=== PATIENT | female | born 1975 | race Caucasian/White ===

== ENCOUNTER 2018-01-06 14:33 | Observation (INO) | payer OTHER ==
[2018-01-06] MEDS ORDERED: NA CHLORIDE 0.9% 1,000 ML ONE (16:01)
[2018-01-06] MEDS ORDERED: ONDANSETRON 4 MG/2 ML VIAL ONE (16:01)
[2018-01-06] MEDS ORDERED: FAMOTIDINE 20 MG/2 ML VIAL IV ONE (16:02)
[2018-01-06 16:33] LABS: Glucose Level 96 mg/dL (65-120); Lipase 24 U/L (22-51)
[2018-01-06 16:34] LABS: Absolute Monocytes 0.9 K/uL (0.1-1.3); Basophils % 0.9 % (0-1.3); Eosinophils % 0.9 % (0-4.4); Hematocrit 39.6 % (36.0-45.0); MCH 33.8 pg (27.0-35.0); MCV 99.2 fL (80-100); MPV 9.9 fL (7.6-11.3); Monocytes % 9.7 % (3.3-12.3); RBC Red Blood Cell Count 3.99 M/uL (3.86-4.86)
[2018-01-06 16:37] LABS: Urine Blood NEGATIVE (NEG); Urine Glucose NEGATIVE (NEG); Urine Protein NEGATIVE (NEG)
[2018-01-06 16:39] LABS: Urine Bacteria <20 /HPF (<20); Urine Culture Reflex Order NOT NEEDED; Urine RBC <5 /HPF (NONE SEEN)
[2018-01-06 16:39] LABS: ALT/SGPT 45 IU/L (10-60); AST/SGOT 81 IU/L (10-42); Albumin 3.3 g/dL (3.2-5.5); Alkaline Phosphatase 116 IU/L (42-121); Bilirubin Direct 0.2 mg/dL (0-0.2); Bilirubin Total 0.4 mg/dL (0.3-1.2); Creatine Phosphokinase 42 IU/L (22-269); Phosphorus 3.6 mg/dL (2.5-4.3); Protein, Total 6.8 g/dL (6.0-8.3)
[2018-01-06 16:43] LABS: CKMB Creatine Kinase MB 1.7 ng/ml (0.3-4.0)
[2018-01-06 16:46] LABS: Bicarbonate 32 mEq/L (21-31); Sodium Level 134 mEq/L (135-145)
[2018-01-06] MEDS ORDERED: MAGNE/ALUM HYDROXD 30 ML UCUP ONE (16:55)
[2018-01-06] MEDS ORDERED: LIDOCAINE VISCOUS 2% SOLN 15 ML UDC ONE (16:55)
[2018-01-06 17:00] LABS: BUN Blood Urea Nitrogen < 5 mg/dL (6-20)
[2018-01-06 17:02] LABS: Potassium 2.5 mEq/L (3.6-5.0)
[2018-01-06] MEDS ORDERED: KCL 20 MEQ/100 mL IVPB 20 MEQ/100 ML BAG IV ONE (17:18)
[2018-01-06] MEDS ORDERED: NA CHLORIDE 0.9% 500 ML ONE (17:18)
--- NOTE | 2018-01-06 17:44 | RAD REPORT ---
EXAM DESCRIPTION: RAD - Chest Single View - 01/06/2018 5:34 pm CLINICAL HISTORY: Chest pain. COMPARISON: 05/31/2017 FINDINGS: Portable technique limits examination quality. The lungs are grossly clear. The heart is normal in size. No displaced fractures. IMPRESSION: No acute intrathoracic process suspected.
--- NOTE | 2018-01-06 18:41 | RAD REPORT ---
EXAM DESCRIPTION: CTAbdomen Pelvis W Contrast - 01/06/2018 6:31 pm CLINICAL HISTORY: Abdominal pain. N/V/D;Abd pain COMPARISON: CT ABD PELVIS W CONTRAST dated 04/10/2015 TECHNIQUE: Biphasic CT imaging of the abdomen and pelvis was performed with 100 ml non-ionic IV cont rast. All CT scans are performed using dose optimization technique as appropriate and may include automated exposure control or mA/KV adjustment according to patient size. FINDINGS: The lung bases are clear. The liver demonstrates diffuse fatty infiltration. The spleen, pancreas, adrenal glands and kidneys a re within normal limits. Cholecystectomy clips. No bowel obstruction, free air, free fluid or abscess. Appendectomy clips noted. No evidence of sig nificant lymphadenopathy. No suspicious bony findings. IMPRESSION: No acute intra-abdominal or pelvic finding. Fatty liver.
[2018-01-06] MEDS ORDERED: Magnesium Sulfate 2gm IVPB 2 G/50 ML BAG IV ONE (18:44)
--- NOTE | 2018-01-06 18:52 | EDPHYS ---
Physician Documentation [facility] Name: Diana Watson Age: 42 yrs Sex: Female : 1975 Arrival Date: 01/06/2018 Time: 14:34 Bed 14 Private MD: Gabriel Neil V ED Physician Charles Kruger HPI: 01/06 15:48 This 42 yrs old Female presents to ER via Ambulatory with complaints of cp Abnormal Lab Results - PER DR. NEIL. 15:49 low potassium level. Onset: The symptoms/episode began/occurred last week. cp 15:49 Severity of symptoms: in the emergency department the symptoms are unchanged. 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 - Social history:: Smoking status: Patient/guardian denies using tobacco. - Ebola Screening: : No symptoms or risks identified at this time. ROS: 15:55 Constitutional: Negative for body aches, chills, fever, poor PO intake. cp 15:55 Eyes: Negative for injury, pain, redness, and discharge. cp 15:55 ENT: Negative for drainage from ear(s), ear pain, sore throat, difficulty swallowing, difficulty handling secretions. 15:55 Neck: Negative for pain with movement, pain at rest, stiffness, swollen nodes, bony tenderness. 15:55 Cardiovascular: Negative for chest pain, edema, palpitations. 15:55 Respiratory: Negative for cough, shortness of breath, wheezing. 15:55 Abdomen/GI: Positive for abdominal pain, diarrhea, Negative for vomiting, constipation, black/tarry stool, rectal bleeding. 15:55 Back: Negative for pain at rest, pain with movement, radiated pain. 15:55 : Negative for urinary symptoms. 15:55 Skin: Negative for cellulitis, rash. 15:55 Neuro: Negative for altered mental status, headache, loss of consciousness. 15:55 All other systems are negative. Exam: 15:58 Constitutional: The patient appears in no acute distress, alert, awake, cp non-diaphoretic, non-toxic, well developed, well nourished. 15:58 Head/Face: Normocephalic, atraumatic. cp 15:58 Eyes: Periorbital structures: appear normal, Pupils: equal, round, and reactive to light and accomodation, Extraocular movements: intact throughout, Conjunctiva: normal, no exudate, no injection, Sclera: no appreciated abnormality, Lids and lashes: appear normal, bilaterally. 15:58 ENT: External ear(s): are unremarkable, Ear canal(s): are normal, clear, TM's: dullness, bilaterally. 15:58 Neck: ROM/movement: is normal, is supple, without pain, no range of motions limitations, no meningismus, no nuchal rigidity. 15:58 Chest/axilla: Inspection: normal, Palpation: is normal, no crepitus, no tenderness. 15:58 Cardiovascular: Rate: normal, Rhythm: regular, Pulses: Pulses are 2+ in right radial artery and left radial artery. Edema: is not appreciated, JVD: is not appreciated. 15:58 Respiratory: the patient does not display signs of respiratory distress, Respirations: normal, no use of accessory muscles, no retractions, no splinting, no tachypnea, Breath sounds: are clear throughout, no decreased breath sounds, no stridor, no wheezing. 15:58 Abdomen/GI: Inspection: abdomen appears normal, Bowel sounds: active, all quadrants, Palpation: soft, in all quadrants, mild abdominal tenderness, in the epigastric area and right upper quadrant, rebound tenderness, is not appreciated, voluntary guarding, is not appreciated, involuntary guarding, is not appreciated. 15:58 Back: pain, is absent, ROM is normal, CVA tenderness, is absent. 15:58 Skin: cellulitis, is not appreciated, no rash present. 15:58 Neuro: Orientation: to person, place \T\ time. Cerebellar function: is grossly normal, Motor: moves all fours, strength is normal, Sensation: no obvious gross deficits. Vital Signs: 14:54 BP 137 / 99; Pulse 90; Resp 16 S; Temp 98.0(TE); Pulse Ox 98% on R/A; Weight 70.31 kg aa5 (R); Height 5 ft. 8 in. (172.72 cm) (R); Pain 0/10; 16:50 BP 166 / 92; Pulse 89; Resp 20; Pulse Ox 98% on R/A; aj 19:24 BP 173 / 95; Pulse 90; Resp 17; Pulse Ox 100% on R/A; mt 14:54 Body Mass Index 23.57 (70.31 kg, 172.72 cm) aa5 MDM: 15:39 Patient medically screened. 18:45 Data reviewed: vital signs, nurses notes, lab test result(s), EKG, radiologic studies, cp CT scan. 18:45 Differential Diagnosis dehydration, alcohol intoxication and abuse, electrolyte cp abnormality, cardiac arrythmia. Test interpretation: by ED physician or midlevel provider: ECG. Response to treatment: the patient's symptoms have mildly improved after treatment. 18:48 Physician consultation: Gabriel Neil MD was contacted at 18:40, regarding admission, to the telemetry unit. patient's condition. 01/06 15:48 Order name: Basic Metabolic Panel; Complete Time: 17:08 01/06 17:08 Interpretation: Normal except: NA 134; K 2.5; CL 91; CO2 32; BUN < 5. 01/06 15:48 Order name: CBC with Diff; Complete Time: 17:08 01/06 17:16 Interpretation: Normal except: WBC 9.0; PLT 231. 01/06 15:48 Order name: Creatinine for Radiology; Complete Time: 16:49 01/06 16:49 Interpretation: Reviewed. 01/06 15:48 Order name: Hepatic Function; Complete Time: 17:08 01/06 15:48 Order name: Lipase; Complete Time: 17:08 01/06 15:48 Order name: Urine Microscopic Only; Complete Time: 16:49 01/06 15:48 Order name: Phosphorus; Complete Time: 17:08 01/06 15:48 Order name: Troponin I; Complete Time: 16:49 01/06 15:48 Order name: CK; Complete Time: 17:08 01/06 15:48 Order name: Ckmb; Complete Time: 17:08 01/06 16:34 Order name: Urine Dipstick--Ancillary (enter results); Complete Time: 16:49 01/06 16:34 Order name: Urine --Ancillary (enter results); Complete Time: 16:49 01/06 17:10 Order name: Magnesium 01/06 17:10 Order name: LAB Add On 01/06 15:48 Order name: Urine Test (obtain specimen); Complete Time: 16:07 01/06 15:48 Order name: EKG; Complete Time: 15:48 01/06 17:11 Order name: Magnesium; Complete Time: 17:55 EDMS 01/06 17:12 Order name: XRAY Chest (1 view); Complete Time: 17:55 cp 01/06 17:12 Order name: CT Abd/Pelvis - W/Contrast: no oral contrast; Complete Time: 18:42 cp 01/06 18:43 Interpretation: Report reviewed. 01/06 17:56 Order name: Occult Blood 01/06 17:56 Order name: Stool Culture 01/06 17:56 Order name: CDIFF 01/06 18:42 Order name: ETOH Level; Complete Time: 15:39 01/06 15:48 Order name: IV Saline Lock; Complete Time: 16:07 01/06 15:48 Order name: Labs collected and sent; Complete Time: 16:07 01/06 15:48 Order name: Urine Dipstick-Ancillary (obtain specimen); Complete Time: 16:07 01/06 15:48 Order name: EKG - Nurse/Tech; Complete Time: 16:07 cp Administered Medications: 16:06 Drug: Pepcid 20 mg Route: IVP; Site: left antecubital; aj 20:30 Follow up: Response: No adverse reaction aj 16:06 Drug: NS 0.9% 1000 ml Route: IV; Rate: 1 bolus; Site: left antecubital; aj 20:29 Follow up: Response: No adverse reaction; IV Status: Completed infusion; IV Intake: aj 1000ml 16:07 Drug: Zofran 4 mg Route: IVP; Site: left antecubital; aj 20:29 Follow up: Response: Nausea is decreased aj 16:57 Drug: GI Cocktail without - (Maalox Suspension 30 ml, Lidocaine Liquid 2 % 15 aj ml) Route: PO; 20:28 Follow up: Response: No adverse reaction aj 17:21 Drug: Potassium Chloride 20 mEq Route: IV; Rate: calculated rate; Site: left aj antecubital; 20:28 Follow up: Response: No adverse reaction; IV Status: Completed infusion; IV Intake: 50mlaj 18:47 Drug: Magnesium Sulfate 2 grams Route: IVPB; Infused Over: 2 hrs; Site: right aj antecubital; 20:27 Follow up: IV Status: Infusion continued upon admission aj Disposition: 01/06/18 18:51 Hospitalization ordered by Gabriel Neil for Observation. Preliminary diagnosis are Hypokalemia, Hypomagnesemia, Abnormal electrocardiogram [ECG] [EKG], Alcohol abuse. - Bed requested for Telemetry/MedSurg (observation). - Status is Observation. aj - Condition is Stable. - Problem is new. - Symptoms have improved. UTI on Admission? No Addendum: 01/10/2018 07:08 Co-signature as Attending Physician, Charles Kruger MD I agree with the assessment and k dr plan of care. Signatures: Dispatcher [employer] EDSD Barbara Chavarria RN RN kl Myers, Amanda, RN RN aj Rittger, Kevin, MD MD [facility] Pily Rivera RN RN aa5 Bernardo Coyle PA PA cp Corrections: (The following items were deleted from the chart) 01/06 17:12 17:11 Magnesium ordered. [facility] EDSD 18:58 18:51 Hospitalization Ordered by Gabriel Neil MD for Observation. Preliminary diagnosis cp is Hypokalemia; Hypomagnesemia. Bed requested for Telemetry/MedSurg (observation). Status is Observation. Condition is Stable. Problem is new. Symptoms have improved. UTI on Admission? No. cp 19:40 18:58 01/06/2018 18:51 Hospitalization Ordered by Gabriel Neil MD for Observation. hossein Preliminary diagnosis is Hypokalemia; Hypomagnesemia; Abnormal electrocardiogram [ECG] [EKG]; Alcohol abuse. Bed requested for Telemetry/MedSurg (observation). Status is Observation. Condition is Stable. Problem is new. Symptoms have improved. UTI on Admission? No. cp 20:30 19:40 01/06/2018 18:51 Hospitalization Ordered by Gabriel Neil MD for Observation. gerard Preliminary diagnosis is Hypokalemia; Hypomagnesemia; Abnormal electrocardiogram [ECG] [EKG]; Alcohol abuse. Bed requested for Telemetry/MedSurg (observation). Status is Observation. Condition is Stable. Problem is new. Symptoms have improved. UTI on Admission? No. kl
--- NOTE | 2018-01-06 18:52 | ER ---
Nurse's Notes [facility] Name: Diana Watson Age: 42 yrs Sex: Female : 1975 Arrival Date: 01/06/2018 Time: 14:34 Bed 14 Private MD: Gabriel Neil V Diagnosis: Hypokalemia;Hypomagnesemia;Abnormal electrocardiogram [ECG] [EKG];Alcohol abuse Presentation: 01/06 14:51 Presenting complaint: Patient states: "I had blood work done about a week ago after a aa5 seizure and Dr. Neil gave me potassium pills because my potassium was low but today I got blood work again and Dr. Neil said to come to the ER because my potassium and magnesium are low". Transition of care: patient was not received from another setting of care. Onset of symptoms was December 2017. Risk Assessment: Do you want to hurt yourself or someone else? Patient reports no desire to harm self or others. Initial Sepsis Screen: Does the patient meet any 2 criteria? No. Patient's initial sepsis screen is negative. Does the patient have a suspected source of infection? No. Patient's initial sepsis screen is negative. Care prior to arrival: None. 14:51 Method Of Arrival: Ambulatory aa5 14:51 Acuity: HUAN 3 aa5 14:56 Note Potassium 2.6 and magnesium 1.2 on [employer] lab results for today. 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 - Social history:: Smoking status: Patient/guardian denies using tobacco. - Ebola Screening: : No symptoms or risks identified at this time. Screenin:27 Abuse screen: Denies threats or abuse. Denies injuries from another. Nutritional aj screening: No deficits noted. Tuberculosis screening: No symptoms or risk factors identified. Fall Risk None identified. Assessment: 16:04 General: Appears in no apparent distress. comfortable, Behavior is calm, cooperative, aj appropriate for age. Pain: Complains of pain in tongue. Neuro: Level of Consciousness is awake, alert, obeys commands, Oriented to person, place, time, situation, Appropriate for age. Cardiovascular: Capillary refill < 3 seconds in bilateral fingers. Respiratory: Airway is patent Respiratory effort is even, unlabored, Respiratory pattern is regular, symmetrical. GI: Reports diarrhea, nausea. Derm: Skin is intact, is healthy with good turgor, Skin is pink, warm \\T\\ dry. normal. Vital Signs: 14:54 BP 137 / 99; Pulse 90; Resp 16 S; Temp 98.0(TE); Pulse Ox 98% on R/A; Weight 70.31 kg aa5 (R); Height 5 ft. 8 in. (172.72 cm) (R); Pain 0/10; 16:50 BP 166 / 92; Pulse 89; Resp 20; Pulse Ox 98% on R/A; aj 19:24 BP 173 / 95; Pulse 90; Resp 17; Pulse Ox 100% on R/A; mt 14:54 Body Mass Index 23.57 (70.31 kg, 172.72 cm) aa5 ED Course: 14:34 Patient arrived in ED. sb2 14:35 Gabriel Neil MD is Private Physician. sb2 14:53 Triage completed. aa5 14:54 Arm band placed on. aa5 15:08 EKG completed in triage. Results shown to MD. aa5 15:26 Bernardo Coyle PA is PHCP. cp 15:39 Bernardo Coyle PA is PHCP. cp 15:39 Charles Kruger MD is Attending Physician. cp 16:04 Gale Dietz, RN is Primary Nurse. aj 16:05 Inserted saline lock: 22 gauge in left antecubital area, using aseptic technique. Blood aj collected. 17:33 X-ray completed. Portable x-ray completed in exam room. Patient tolerated procedure bb2 well. 17:34 XRAY Chest (1 view) In Process Unspecified. EDMS 17:39 Note: nurse unable to take patient off iv pump, will check back when patient is done jj2 with medication for ct scan. 18:18 Inserted saline lock: 22 gauge in right antecubital area, using aseptic technique. fc 18:27 CT completed. Patient tolerated procedure well. Patient moved to CT via stretcher. sw Patient moved back from CT. 18:31 CT Abd/Pelvis - W/Contrast: no oral contrast In Process Unspecified. EDMS 18:49 Gabriel Neil MD is Hospitalizing Provider. cp 19:53 Patient has correct armband on for positive identification. Report given to Imelda. aj 19:53 No provider procedures requiring assistance completed. Patient admitted, IV remains in aj place. Administered Medications: 16:06 Drug: Pepcid 20 mg Route: IVP; Site: left antecubital; aj 20:30 Follow up: Response: No adverse reaction aj 16:06 Drug: NS 0.9% 1000 ml Route: IV; Rate: 1 bolus; Site: left antecubital; aj 20:29 Follow up: Response: No adverse reaction; IV Status: Completed infusion; IV Intake: aj 1000ml 16:07 Drug: Zofran 4 mg Route: IVP; Site: left antecubital; aj 20:29 Follow up: Response: Nausea is decreased aj 16:57 Drug: GI Cocktail without - (Maalox Suspension 30 ml, Lidocaine Liquid 2 % 15 aj ml) Route: PO; 20:28 Follow up: Response: No adverse reaction aj 17:21 Drug: Potassium Chloride 20 mEq Route: IV; Rate: calculated rate; Site: left aj antecubital; 20:28 Follow up: Response: No adverse reaction; IV Status: Completed infusion; IV Intake: 50mlaj 18:47 Drug: Magnesium Sulfate 2 grams Route: IVPB; Infused Over: 2 hrs; Site: right aj antecubital; 20:27 Follow up: IV Status: Infusion continued upon admission aj Intake: 20:28 IV: 50ml; Total: 50ml. aj 20:29 IV: 1000ml; Total: 1050ml. aj Outcome: 18:51 Decision to Hospitalize by Provider. cp 19:53 Admitted to Tele accompanied by tech, via wheelchair, Report called to Imelda aj 19:53 Condition: good 19:53 Instructed on the need for admit, Demonstrated understanding of instructions. 20:30 Patient left the ED. aj Signatures: Dispatcher [employer] Gale Jovel RN RN aj Jaramillo, Justin jj2 Chretien, Felicia RN Pily Moise RN RN aa5 Evonne Castillo Corey, PA PA cp Thompson, Agueda nj Dylon, Didi 2 Mary Luong sb2 Corrections: (The following items were deleted from the chart) 16:05 16:04 GI: Reports nausea, aj aj
[2018-01-06] MEDS ORDERED: ONDANSETRON 4 MG/2 ML VIAL IV PRN (18:55)
[2018-01-06] MEDS ORDERED: ACETAMINOPHEN 500 MG TAB PO PRN (18:55)
[2018-01-06] MEDS: POTASSIUM CL 40 MEQ in NA CHLORIDE 0.9% 500 ML IV SCH ×2 (19:00→20:30)
[2018-01-06] MEDS: NA CHLORIDE 0.9% 1,000 ML IV SCH (20:31)
[2018-01-06] MEDS: MULTIVITAMIN TAB PO SCH (22:28)
[2018-01-06] MEDS: FOLIC ACID 1 MG TABLET PO SCH (22:28)
[2018-01-06] MEDS: LORazepam 2 MG/ML VIAL IV SCH (22:29)
[2018-01-06] MEDS: THIAMINE HCL 100 MG TABLET PO SCH (22:29)
[2018-01-06 23:19] VITALS: BMI 23.7
[2018-01-07] MEDS: POTASSIUM CL 40 MEQ in NA CHLORIDE 0.9% 500 ML IV SCH (00:27)
[2018-01-07] MEDS: LORazepam 2 MG/ML VIAL IV SCH ×3 (02:00→10:00)
[2018-01-07] MEDS: NA CHLORIDE 0.9% 1,000 ML IV SCH ×2 (03:00→11:00)
[2018-01-07 05:44] LABS: Absolute Lymphocytes (CBC) 1.6 K/uL (0.7-4.9); Absolute Monocytes 0.5 K/uL (0.1-1.3); Absolute Neutrophil 3.6 K/uL (1.8-8.0); Basophils % 1.1 % (0-1.3); Hematocrit 34.6 % (36.0-45.0); Lymphocytes % 27.2 % (15.3-44.8); MCH 34.5 pg (27.0-35.0); MCV 99.8 fL (80-100); MPV 10.3 fL (7.6-11.3); Monocytes % 8.3 % (3.3-12.3); RBC Red Blood Cell Count 3.47 M/uL (3.86-4.86)
[2018-01-07 05:55] LABS: Bicarbonate 28 mEq/L (21-31); Glucose Level 80 mg/dL (65-120); Magnesium 1.6 mg/dL (1.8-2.5); Potassium 4.3 mEq/L (3.6-5.0); Sodium Level 141 mEq/L (135-145)
[2018-01-07 05:56] LABS: BUN Blood Urea Nitrogen < 5 mg/dL (6-20)
[2018-01-07] MEDS ORDERED: MAGNESIUM SULFATE 1 gm IVPB 1 GM/100 ML BAG IV ONE (06:15)
--- NOTE | 2018-01-07 06:16 | EKG ---
Test Date: 2018-01-06 Test Time: 15:07:16 Head Of Design: EFE MEASUREMENT RESULTS: Intervals: Rate: 88 AK: 142 QRSD: 80 QT: 410 QTc: 496 [place]: P: 49 AK: 142 QRS: 43 T: 51 INTERPRETIVE STATEMENTS: Normal sinus rhythm Possible Left atrial enlargement Left ventricular hypertrophy Prolonged QT Abnormal ECG Compared to ECG 06/01/2017 09:08:24 Left ventricular hypertrophy now present Prolonged QT interval now present Sinus tachycardia no longer present Electronically Signed On 01-07-18 06:16:11 CDT by Ivan Bradley
[2018-01-07 08:27] VITALS: O2SAT 98
[2018-01-07] MEDS ORDERED: levETIRAcetam 500 MG TAB PO SCH (09:00)
[2018-01-07] MEDS ORDERED: METOPROLOL XL 50 MG TAB PO SCH (09:00)
[2018-01-07] MEDS: THIAMINE HCL 100 MG TABLET PO SCH (09:09)
[2018-01-07] MEDS: FOLIC ACID 1 MG TABLET PO SCH (09:09)
[2018-01-07] MEDS: MULTIVITAMIN TAB PO SCH (09:18)
[2018-01-07 09:19] VITALS: BP 157/89
[2018-01-07 10:35] VITALS: TEMP 98.1
--- NOTE | 2018-01-07 11:23 | P.SSS ---
Patient History Date of Service: 01/07/18 History of Present Illness: TARUN HAD LOW K AND LOW MG. I SENT HER TO [facility] ER FOR ADMISSION IT WAS DOWN TO 2.6 FOR K AND 1.2 FOR MAG. HER MAJOR ISSUE IS ALCOHOL ABUSE. SHE IS DOWN TO 8% ALCHOLOL ONLY TWO CUPS A DAY. SHE HAS TONGUE PAIN FROM BITE SHE HAD FROM SEIZURE. SHE HAS BEEN GIVEN ORDER TO GO TO NEUROLOGIST. I HAVE PLACED HER ON KEPPRA, I ALSO GAVE HER CLINDAMYCIN FOR HER TONGUE PAIN. SHE STILL HAS PAIN BUT ON PALPATION I DON'T SEE ANY ABSCESS OR CELLULITIS. SHE IS STABLE. SHE WILL EAT AND DRINK PROPERLY TO KEEP HER ELECTROLYTES UP. I WILL SEE HER NEXT WEEK. Allergies cefazolin sodium [From [facility]] Allergy (Intermediate, Verified 04/10/15 21:31) Rash Home Medications: Metoprolol Succinate [Toprol Xl*] 100 mg PO DAILY 10/23/12 Pantoprazole [Protonix Tab*] 40 mg PO DAILY #30 tab 11/07/14 Atorvastatin Calcium [Lipitor] 10 mg PO DAILY 04/13/15 Ciprofloxacin HCl [Cipro 500 MG Tablet] 500 mg PO DAILY 01/06/18 Clindamycin HCl [Cleocin HCl] 300 mg PO TID 01/06/18 Potassium Chloride 20 meq PO BID 01/06/18 levETIRAcetam [Keppra*] 500 mg PO BID 01/06/18 - Past Medical/Surgical History Has patient received pneumonia vaccine in the past: No Diabetic: No -: HTN -: anxiety -: depression -: mitral valve prolapse -: Hypokalemia -: chronic alcohol abuse -: appendectomy -: cholecystectomy -: endometrial ablation - Family History Father -: Heart disease, Hypertension Notes: had triple bypass Mother -: Heart disease, Hypertension, Diabetes Sister -: Hypertension, Kidney disease Notes: Also had a sister pass from GI disease - Social History Smoking Status: Never smoker Alcohol use: Yes CD- Drugs: No Caffeine use: Yes Place of Residence: Home Review of Systems 10-point ROS is otherwise unremarkable Physical Examination - Vital Signs Temperature: 98.1 F Blood Pressure: 157/89 Pulse: 92 Respirations: 16 Pulse Ox (%): 96 - Physical Exam General: Alert, Other (SEDATED FROM ) HEENT: Other (TONGUE BITE EXAMINED ABOVE. WE HAVE NO ENT DOCTOR HYDROLOGIC ENGINEER. THERE DOES NOT SEEM TO BE ANY EMERGENCY.) Neck: Supple, 2+ carotid pulse no bruit, No LAD, Without JVD or thyroid abnormality Respiratory: Clear to auscultation bilaterally, Normal air movement Cardiovascular: Regular rate/rhythm, Normal S1 S2 Gastrointestinal: Normal bowel sounds, No tenderness Musculoskeletal: No tenderness Integumentary: No rashes Neurological: Normal gait, Normal speech, Normal strength at 5/5 x4 extr, Normal tone, Normal affect Lymphatics: No axilla or inguinal lymphadenopathy - Studies Laboratory Data (last 24 hrs) 01/06/18 17:10: Magnesium Cancelled 01/06/18 15:55: Magnesium 1.2 L* 01/06/18 15:55: Troponin I < 0.03 01/06/18 15:55: Creatinine 0.50 01/06/18 15:55: WBC 9.0 D, Hgb 13.5, Hct 39.6, Plt Count 231 D 01/06/18 15:55: Sodium 134 L, Potassium 2.5 L*, BUN < 5 L, Creatinine 0.49, Glucose 96, Phosphorus 3.6, Total Bilirubin 0.4, AST 81 H, ALT 45, Alkaline Phosphatase 116, Lipase 24 - Diagnosis (Problem(s)) (1) Hypokalemia Onset Date: 04/11/15 Current Visit: No Status: Acute Plan: THIS CAN BE EXACERABTED BY LOW MAG THAT CAN HAPPEN WITH LOW ORAL INTAKE BUT CONTINUED ALCOHOL USE. SHE IS NOT SHOWING ANY SIGNS OF WITHDRAWAL SO WILL TAPER OFF ATIVAN AND LET HER GO THIS PM. SHE WILL COME TO OFFICE. (2) Hypomagnesemia Onset Date: 06/01/17 Current Visit: No Status: Acute - Disposition Disposition: ROUTINE DISCHARGE Patient Discharge Instructions: MAG-OX 400 ONE TABLET THREE TIMES DAILY- BUY OTC AND KEEP TAKING POTASSIUM I GAVE YOU. VISIT ENT DOCTOR LIKE WE TALKED ABOUT.
[2018-01-08] MEDS ORDERED: LORazepam 2 MG/ML VIAL IV SCH (04:00)
[2018-01-09] MEDS ORDERED: LORazepam 2 MG/ML VIAL IV SCH (02:00)
== END 2018-01-07 13:23 | disposition home or self-care (01) ==
LOC: ER 14:33 → ERHOLD 18:53 → 2ND 19:53
PROVIDERS: ADMIT Internal Medicine; ATTEND Internal Medicine
DX: E87.6 Hypokalemia (principal); E83.42 Hypomagnesemia; I10 Essential (primary) hypertension; F41.9 Anxiety disorder, unspecified; F10.10 Alcohol abuse, uncomplicated
CPT/HCPCS: 36415; 71045; 74177; 80048; 80076; 80320; 81003; 81015; 81025; 82550; 82553; 83690; 83735; 84100; 84132; 84484; 85025; 87045; 87046; 87493; 93005; 99285; G0378; J2405; J3475; J7030; Q9967

== ENCOUNTER 2018-04-15 21:40 | Inpatient (IN) | payer OTHER ==
[2018-04-15] MEDS ORDERED: NA CHLORIDE 0.9% 0 ML ONE (22:14)
[2018-04-15] MEDS ORDERED: DIAZEPAM 10 MG/2 ML INJ SYRINGE ONE ×2 (22:16→23:52)
[2018-04-15] MEDS ORDERED: NA CHLORIDE 0.9% 2,000 ML ONE (22:17)
[2018-04-15] MEDS ORDERED: THIAMINE 200 MG/2 ML INJ ONE (22:17)
[2018-04-15] MEDS ORDERED: MULTIVITAMINS 10 ML VIAL (INJ) IV ONE (22:18)
[2018-04-15] MEDS ORDERED: FOLIC ACID 5 MG/ML VIAL ONE (22:19)
[2018-04-15 22:46] LABS: Albumin 3.9 g/dL (3.4-5.0); Bilirubin Direct 0.4 mg/dL (0-0.2); Bilirubin Total 1.5 mg/dL (0.2-1.0); Potassium 3.6 mmol/L (3.5-5.1); Troponin (Emerg Dept Use Only) 0.03 ng/mL (0.0-0.045)
[2018-04-15 23:34] LABS: Absolute Lymphocytes (CBC) 1.6 K/uL (0.7-4.9); Absolute Monocytes 0.6 K/uL (0.1-1.3); Absolute Neutrophil 4.2 K/uL (1.8-8.0); Basophils % 0.5 % (0-1.3); Eosinophils % 0.4 % (0-4.4); Hematocrit 43.7 % (36.0-45.0); Lymphocytes % 25.2 % (15.3-44.8); MCH 33.9 pg (27.0-35.0); MCV 98.3 fL (80-100); MPV 9.7 fL (7.6-11.3); Monocytes % 9.5 % (3.3-12.3); RBC Red Blood Cell Count 4.44 M/uL (3.86-4.86)
[2018-04-16] MEDS ORDERED: NA CHLORIDE 0.9% 1,000 ML ONE (00:38)
[2018-04-16 00:43] LABS: Barbiturates NEGATIVE (NEGATIVE); Benzodiazepines POSITIVE (NEGATIVE); Cocaine NEGATIVE (NEGATIVE); METHAMPHETAM NEGATIVE (NEGATIVE); Methadone NEGATIVE (NEGATIVE); Opiates NEGATIVE (NEGATIVE); Phencyclidine NEGATIVE (NEGATIVE); THC Cannibis NEGATIVE (NEGATIVE)
[2018-04-16 01:09] LABS: Urine Bacteria <20 /HPF (<20); Urine Culture Reflex Order NOT NEEDED; Urine RBC <5 /HPF (NONE SEEN)
--- NOTE | 2018-04-16 02:53 | EDPHYS ---
Physician Documentation [facility] Name: Diana Watson Age: 42 yrs Sex: Female : 1975 Arrival Date: 04/15/2018 Time: 21:42 Bed 4 Private MD: Gabriel Neil V ED Physician Srikanth Drew HPI: 04/15 22:46 This 42 yrs old Female presents to ER via Wheelchair with complaints of shaky rn and double vision. 22:46 The patient's problem is reported as weakness, that is generalized. Onset: The rn symptoms/episode began/occurred at an unknown time. thinks 2-3 hours prior to arrival. Duration: The episodes are intermittent. The symptoms are alleviated by nothing. The symptoms are aggravated by walking. Severity of symptoms: At their worst the symptoms were mild in the emergency department the symptoms are unchanged. The patient has not experienced similar symptoms in the past. The patient has been recently seen by a physician:. Reports similar symptoms earlier this week, seen at outside hospital with same shakiness and blurred/double vision, told had meth amphetamines is her system. REports trying to drink less, is an alcoholic, and today drank maybe 50% of her daily ETOH, feels shaky, double vision, and generalized weakness, no focal weakness or paresthesias, no seizure, no chest pain, denies recent drug use. . 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 lp1 Historical: - Allergies: 21:58 Ancef (rash); aj1 - Home Meds: 21:58 lovastatin 40 mg Oral tab 1 tab once daily [Active]; metoprolol 100 mg one tab once aj1 daily [Active]; Metoprolol Tartrate Oral [Active]; Omeprazole Oral [Active]; Ondansetron Oral as needed [Active]; phenergen suppository, unknown dose PRN [Active]; Prilosec Oral [Active]; - PMHx: 21:58 Hypertension; Ulcers; aj1 - Immunization history:: Flu vaccine is not up to date. - Social history:: Smoking status: Patient uses tobacco products, 3 - 4 cigarettes per day, Patient uses alcohol, on a daily basis. Reports "I usually drink 8 shots of Rum a day". - Ebola Screening: : Patient denies travel to an Ebola-affected area in the 21 days before illness onset. - Family history:: not pertinent. - Hospitalizations: : No recent hospitalization is reported. ROS: 22:51 Constitutional: Negative for fever, chills, and weight loss, Eyes: Negative for injury, rn pain, redness, and discharge, Neck: Negative for injury, pain, and swelling, Cardiovascular: + palpitations Respiratory: + fast breathing Abdomen/GI: + upper abd cramping MS/Extremity: Negative for injury and deformity, Skin: Negative for injury, rash, and discoloration, Neuro: Negative for headache, numbness, tingling, and seizure. Exam: 22:51 Constitutional: This is a well developed, well nourished patient who is awake, alert, rn appears anxious, wide-eyed, and speaking fast Head/Face: Normocephalic, atraumatic. Eyes: Pupils equal round and reactive to light, extra-ocular motions intact. Lids and lashes normal. Conjunctiva and sclera are non-icteric and not injected. Cornea within normal limits. Periorbital areas with no swelling, redness, or edema. ENT: dry MM, no stridor, + tongue fasciculations Neck: Trachea midline, no thyromegaly or masses palpated, and no cervical lymphadenopathy. Supple, full range of motion without nuchal rigidity, or vertebral point tenderness. No Meningismus. Cardiovascular: tachycardic, regular, no murmur Respiratory: + mild tachypnea, no retractions, clear bilaterally Abdomen/GI: soft, non-tender MS/ Extremity: Pulses equal, no cyanosis. Neurovascular intact. Full, normal range of motion. Equal circumference. Neuro: Awake and alert, GCS 15, oriented to person, place, time, and situation. Cranial nerves II-XII grossly intact. Motor strength 5/5 in all extremities. Sensory grossly intact. Cerebellar exam normal. + fine extremity tremor. Vital Signs: 21:45 BP 177 / 141; Pulse 155; Resp 23; Temp 98.4(TE); Pulse Ox 100% on R/A; Weight 68.04 kg aj1 (R); Height 5 ft. 8 in. (172.72 cm) (R); 23:30 BP 147 / 107; Pulse 139; Resp 20; Pulse Ox 100% on R/A; jb4 04/16 00:35 BP 147 / 104; Pulse 119; Resp 18; Pulse Ox 100% on R/A; lp1 01:26 BP 133 / 109; Pulse 109; Resp 18 S; Pulse Ox 100% on R/A; jd3 02:30 BP 127 / 90; Pulse 113; Resp 15 S; Pulse Ox 100% on R/A; jb4 03:39 BP 111 / 82; Pulse 114; Resp 12; Pulse Ox 100% on R/A; lp1 04/15 21:45 Body Mass Index 22.81 (68.04 kg, 172.72 cm) aj1 NIH Stroke Scale Scores: 04/15 22:00 NIHSS Score: 4 jb4 MDM: 21:44 Patient medically screened. rn 04/16 02:50 Differential diagnosis: metabolic disorder, ETOH withdrawal, dehydration. Data rn reviewed: vital signs, nurses notes, lab test result(s), EKG, radiologic studies, CT scan, and as a result, I will admit patient. Counseling: I had a detailed discussion with the patient and/or guardian regarding: the historical points, exam findings, and any diagnostic results supporting the discharge/admit diagnosis, lab results, radiology results, the need for further work-up and treatment in the hospital. Response to treatment: the patient's symptoms have markedly improved after treatment. Admission orders: after a detailed discussion of the patient's condition and case, the admit orders are written by me. ED course: admitted to Dr. Olson. 04/15 21:54 Order name: CBC with Diff rn 04/15 21:54 Order name: Basic Metabolic Panel; Complete Time: 23:45 rn 04/15 21:54 Order name: Urine Drug Screen; Complete Time: :45 rn 04/15 21:54 Order name: Urine Microscopic Only; Complete Time: :45 rn 04/15 21:54 Order name: Troponin (emerg Dept Use Only); Complete Time: 23:45 rn 04/15 21:54 Order name: Lipase; Complete Time: 23:45 rn 04/15 21:54 Order name: CT Head Brain wo Cont rn 04/15 21:54 Order name: LFT's; Complete Time: 23:45 rn 04/15 21:55 Order name: CBC with Automated Diff; Complete Time: 23:45 EDMS 04/15 22:08 Order name: ETOH Level; Complete Time: 23:45 rn 04/15 21:54 Order name: IV Start; Complete Time: 22:35 rn 04/15 21:54 Order name: EKG; Complete Time: 21:55 rn 04/15 21:54 Order name: EKG - Nurse/Tech; Complete Time: 22:03 rn Administered Medications: 04/15 22:30 Drug: Valium 10 mg Route: IVP; Site: left wrist; jb4 04/16 03:31 Follow up: Response: No adverse reaction; Anxiety decreased lp1 04/15 22:31 Drug: Banana Bag - (NS 0.9% 1000 ml, foLIC Acid 1 mg, Thiamine 100 mg, Multivitamin 1 jb4 amp) Route: IV; Rate: calculated rate; Site: left forearm; 04/16 04:04 Follow up: Response: No adverse reaction; IV Status: Infusion continued upon admission lp1 04/15 22:32 Drug: NS 0.9% 1000 ml Route: IV; Rate: 1000 ml; Site: left wrist; jb4 04/16 00:54 Follow up: Response: No adverse reaction; IV Status: Completed infusion lp1 04/15 23:50 Drug: Valium 10 mg Route: IVP; Site: left wrist; jb4 04/16 03:30 Follow up: Response: No adverse reaction; Anxiety decreased lp1 01:17 Drug: NS 0.9% 1000 ml Route: IV; Rate: 1000 ml; Site: left antecubital; jd3 02:25 Follow up: Response: No adverse reaction; IV Status: Completed infusion lp1 Disposition: 04/16/18 02:51 Hospitalization ordered by Gabriel Neil for Inpatient Admission. Preliminary diagnosis are Alcohol dependence with withdrawal delirium, Dehydration. - Bed requested for Intensive Care Unit. - Status is Inpatient Admission. lp1 - Condition is Stable. - Problem is new. - Symptoms have improved. UTI on Admission? No NIH Stroke Scale - NIH Stroke Score Date: 04/15/2018 Time: 22:00 Total Score = 4 1a. Level of Consciousness (LOC) - 0(Alert) 1b. Level of Consciousness (LOC) (Year \\T\\ Age) - 0(Both) 1c. LOC Commands (Open \\T\\ Closes Eyes/Fell Cutter) - 0(Both) 2. Best Gaze (Lateral Gaze Paresis) - 0(Normal) 3. Visual Field Loss - 0(No visual loss) 4. Facial Palsy - 0(Normal) 5a. Left Arm: Motor (10-second hold) - 1(Drift) 5b. Right Arm: Motor (10-second hold) - 1(Drift) 6a. Left Leg: Motor (5-second hold - always test supine) - 1(Drift) 6b. Right Leg: Motor (5-second hold - always test supine) - 1(Drift) 7. Limb Ataxia (finger/nose \\T\\ heel/keller - test with eyes open) - 0(Absent) 8. Sensory Loss (pinprick arms/legs/face) - 0(Normal) 9. Best Language: Aphasia (description/naming/reading) - 0(No aphasia) 10. Dysarthria (speech clarity - read or repeat words) - 0(Normal) 11. Extinction and Inattention (visual/tactile/auditory/spatial/personal) - 0(No abnormality) Initials: jb4 Signatures: Dispatcher [employer] [facility] Karyna Mcdermott RN RN aj1 Barbara Chavarria RN Srikanth Mims MD MD rn Pena, Laura, RN RN lp1 Dougie Osorio RN RN jb4 Arjun Hummel RN RN jd3 Corrections: (The following items were deleted from the chart) 04/15 22:21 22:08 ETHANOL+C.LAB.BRZ ordered. [facility] 04/16 03:12 02:51 Hospitalization Ordered by Gabriel Neil MD for Inpatient Admission. hossein Preliminary diagnosis is Alcohol dependence with withdrawal delirium; Dehydration. Bed requested for Telemetry/MedSurg (Inpatient). Status is Inpatient Admission. Condition is Stable. Problem is new. Symptoms have improved. UTI on Admission? No. rn 04:05 03:12 04/16/2018 02:51 Hospitalization Ordered by Gabriel Neil MD for Inpatient lp1 Admission. Preliminary diagnosis is Alcohol dependence with withdrawal delirium; Dehydration. Bed requested for Intensive Care Unit. Status is Inpatient Admission. Condition is Stable. Problem is new. Symptoms have improved. UTI on Admission? No. kl
--- NOTE | 2018-04-16 02:53 | ER ---
Nurse's Notes [facility] Name: Diana Watson Age: 42 yrs Sex: Female : 1975 Arrival Date: 04/15/2018 Time: 21:42 Bed 4 Private MD: Gabriel Neil V Diagnosis: Alcohol dependence with withdrawal delirium;Dehydration Presentation: 04/15 21:45 Presenting complaint: Patient states: She has had trouble walking and double vision for aj1 the past 2 hours. Patient also reports numbness to bilateral thighs and difficulty concentrating. Speech is slow, but clear. [employer]iconductor Packages Leak Tester are equal bilaterally, equal eye brow raises. Patient states that she drinks alcohol daily, but is trying to cut back. Shaking noted to bilateral hands. Patient also reports abdominal pain, states that she has a history of gastric ulcers. 21:54 Transition of care: patient was not received from another setting of care. Onset of aj1 symptoms was April 15, 2018 at 19:45. Risk Assessment: Do you want to hurt yourself or someone else? Patient reports no desire to harm self or others. Initial Sepsis Screen: Does the patient meet any 2 criteria? Altered Mental Status. HR > 90 bpm. Yes Does the patient have a suspected source of infection? No. Patient's initial sepsis screen is negative. Care prior to arrival: None. 21:54 Method Of Arrival: Wheelchair aj 21:54 Acuity: HUAN 2 aj1 Triage Assessment: 21:58 The onset of the patients symptoms was April 15, 2018 at 19:45. General: Appears aj1 uncomfortable, Behavior is cooperative, anxious. Pain: Complains of pain in abdomen. Neuro: Level of Consciousness is awake, alert, obeys commands, Semiconductor Packages Leak Tester are equal bilaterally Moves all extremities. Speech slow, but clear. Facial symmetry appears normal, Reports diplopia, headache numbness to bilateral thighs. Reports difficulty walking because of the numbness. Cardiovascular: Patient's skin is warm and dry. Respiratory: Airway is patent Respiratory effort is even, unlabored, Respiratory pattern is regular, symmetrical. 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 lp1 Historical: - Allergies: 21:58 Ancef (rash); aj1 - Home Meds: 21:58 lovastatin 40 mg Oral tab 1 tab once daily [Active]; metoprolol 100 mg one tab once aj1 daily [Active]; Metoprolol Tartrate Oral [Active]; Omeprazole Oral [Active]; Ondansetron Oral as needed [Active]; phenergen suppository, unknown dose PRN [Active]; Prilosec Oral [Active]; - PMHx: 21:58 Hypertension; Ulcers; aj1 - Immunization history:: Flu vaccine is not up to date. - Social history:: Smoking status: Patient uses tobacco products, 3 - 4 cigarettes per day, Patient uses alcohol, on a daily basis. Reports "I usually drink 8 shots of Rum a day". - Ebola Screening: : Patient denies travel to an Ebola-affected area in the 21 days before illness onset. - Family history:: not pertinent. - Hospitalizations: : No recent hospitalization is reported. Screenin:00 Abuse screen: Denies threats or abuse. Nutritional screening: No deficits noted. lp1 Tuberculosis screening: No symptoms or risk factors identified. Fall Risk Fall in past 12 months (25 points). IV access (20 points). Gait- Weak (10 pts.). Mental Status- Oriented to own ability (0 pts). Total Feldman Fall Scale indicates High Risk Score (45 or more points). Fall prevention measures have been instituted. Side Rails Up X 2 Placed Close to Nursing Station Frequent Obs/Assessments Occuring Family Present and informed to notify staff if the need to leave the bedside As available patient and family educated on Fall Prevention Program and Strategies. Assessment: 22:00 General: Appears in no apparent distress. Behavior is cooperative, anxious. Pain: jb4 Denies pain. Neuro: Level of Consciousness is awake, alert, obeys commands, Oriented to person, place, time, situation, Sem[employer] Packages Leak Tester are equal bilaterally Moves all extremities. Full function Weakness in bilateral arm(s) leg(s) Gait is unsteady, Speech is normal, Facial symmetry appears normal, Pupils are PERRLA. Cardiovascular: Heart tones S1 S2 present Patient's skin is warm and dry. Respiratory: Airway is patent Respiratory effort is even, unlabored, Respiratory pattern is regular, symmetrical. GI: Abdomen is flat, Bowel sounds present X 4 quads. Abd is soft and non tender X 4 quads. : No signs and/or symptoms were reported regarding the genitourinary system. EENT: No signs and/or symptoms were reported regarding the EENT system. Derm: Skin is intact, Skin is pink, warm \\T\\ dry. Musculoskeletal: Circulation, motion, and sensation intact. 23:00 Reassessment: Patient appears in no apparent distress at this time. Patient and/or jb4 family updated on plan of care and expected duration. Pain level reassessed. Patient is alert, oriented x 3, equal unlabored respirations, skin warm/dry/pink. Pt is more alert and awake. son is at the bedside. 04/16 00:35 Reassessment: Patient appears in no apparent distress at this time. Patient and/or jb4 family updated on plan of care and expected duration. Pain level reassessed. Patient is alert, oriented x 3, equal unlabored respirations, skin warm/dry/pink. Pt is resting calmly in bed with son at the bedside. 01:35 Reassessment: Patient appears in no apparent distress at this time. Patient and/or jb4 family updated on plan of care and expected duration. Pain level reassessed. Patient is alert, oriented x 3, equal unlabored respirations, skin warm/dry/pink. 02:35 Reassessment: Patient appears in no apparent distress at this time. Patient and/or jb4 family updated on plan of care and expected duration. Pain level reassessed. Pt is resting in bed with eyes closed. no s/s of distress noted, respirations even an unlabored. 04:04 Reassessment: Patient appears in no apparent distress at this time. Patient and/or lp1 family updated on plan of care and expected duration. Pain level reassessed. Patient is alert, oriented x 3, equal unlabored respirations, skin warm/dry/pink. pt understands need for admission. No complaint or questions at this time. Patient denies pain at this time. Vital Signs: 04/15 21:45 BP 177 / 141; Pulse 155; Resp 23; Temp 98.4(TE); Pulse Ox 100% on R/A; Weight 68.04 kg aj1 (R); Height 5 ft. 8 in. (172.72 cm) (R); 23:30 BP 147 / 107; Pulse 139; Resp 20; Pulse Ox 100% on R/A; jb4 04/16 00:35 BP 147 / 104; Pulse 119; Resp 18; Pulse Ox 100% on R/A; lp1 01:26 BP 133 / 109; Pulse 109; Resp 18 S; Pulse Ox 100% on R/A; jd3 02:30 BP 127 / 90; Pulse 113; Resp 15 S; Pulse Ox 100% on R/A; jb4 03:39 BP 111 / 82; Pulse 114; Resp 12; Pulse Ox 100% on R/A; lp1 04/15 21:45 Body Mass Index 22.81 (68.04 kg, 172.72 cm) aj1 NIH Stroke Scale Scores: 04/15 22:00 NIHSS Score: 4 jb4 ED Course: 21:42 Patient arrived in ED. es 21:43 Gabriel Neil MD is Private Physician. es 21:44 Srikanth Drew MD is Attending Physician. rn 21:45 telemetry monitor on. Pulse ox on. NIBP on. aj1 21:55 Dougie Osorio, RN is Primary Nurse. jb4 21:56 Triage completed. aj1 21:58 Arm band placed on Patient placed in an exam room, Patient triaged in exam room due to aj1 elevated heart rate and stroke like symptoms. Dr Drew notified of poss CVA pt, and was at bedside during triage. No code stroke called at this time per Dr. Drew. 22:00 Patient has correct armband on for positive identification. Bed in low position. Call lp1 light in reach. Side rails up X2. 22:14 Missed attempt(s): 22 gauge in left hand. Missed attempt(s): 20 gauge in left lp1 antecubital area. Inserted saline lock: 22 gauge in left forearm, using aseptic technique. 22:33 CT completed. Patient tolerated procedure well. Patient moved back from CT. bq 22:36 CT Head Brain wo Cont In Process Unspecified. EDMS 04/16 02:51 Gabriel Neil MD is Hospitalizing Provider. rn 03:40 No provider procedures requiring assistance completed. lp1 03:40 Patient admitted, IV remains in place. lp1 Administered Medications: 04/15 22:30 Drug: Valium 10 mg Route: IVP; Site: left wrist; jb4 04/16 03:31 Follow up: Response: No adverse reaction; Anxiety decreased lp1 04/15 22:31 Drug: Banana Bag - (NS 0.9% 1000 ml, foLIC Acid 1 mg, Thiamine 100 mg, Multivitamin 1 jb4 amp) Route: IV; Rate: calculated rate; Site: left forearm; 04/16 04:04 Follow up: Response: No adverse reaction; IV Status: Infusion continued upon admission lp1 04/15 22:32 Drug: NS 0.9% 1000 ml Route: IV; Rate: 1000 ml; Site: left wrist; jb4 04/16 00:54 Follow up: Response: No adverse reaction; IV Status: Completed infusion lp1 04/15 23:50 Drug: Valium 10 mg Route: IVP; Site: left wrist; jb4 04/16 03:30 Follow up: Response: No adverse reaction; Anxiety decreased lp1 01:17 Drug: NS 0.9% 1000 ml Route: IV; Rate: 1000 ml; Site: left antecubital; jd3 02:25 Follow up: Response: No adverse reaction; IV Status: Completed infusion lp1 Outcome: 02:51 Decision to Hospitalize by Provider. rn 03:50 Admitted to ICU accompanied by nurse, via stretcher, room 6, on monitor, with chart, lp1 Report called to CARLY Irizarry 03:50 Condition: stable 03:50 Instructed on the need for admit, Demonstrated understanding of instructions. 04:05 Patient left the ED. lp1 NIH Stroke Scale - NIH Stroke Score Date: 04/15/2018 Time: 22:00 Total Score = 4 1a. Level of Consciousness (LOC) - 0(Alert) 1b. Level of Consciousness (LOC) (Year \\T\\ Age) - 0(Both) 1c. LOC Commands (Open \\T\\ Closes Eyes/Final Inspector Balance Wheel) - 0(Both) 2. Best Gaze (Lateral Gaze Paresis) - 0(Normal) 3. Visual Field Loss - 0(No visual loss) 4. Facial Palsy - 0(Normal) 5a. Left Arm: Motor (10-second hold) - 1(Drift) 5b. Right Arm: Motor (10-second hold) - 1(Drift) 6a. Left Leg: Motor (5-second hold - always test supine) - 1(Drift) 6b. Right Leg: Motor (5-second hold - always test supine) - 1(Drift) 7. Limb Ataxia (finger/nose \\T\\ heel/keller - test with eyes open) - 0(Absent) 8. Sensory Loss (pinprick arms/legs/face) - 0(Normal) 9. Best Language: Aphasia (description/naming/reading) - 0(No aphasia) 10. Dysarthria (speech clarity - read or repeat words) - 0(Normal) 11. Extinction and Inattention (visual/tactile/auditory/spatial/personal) - 0(No abnormality) Initials: jb4 Signatures: Dispatcher [employer] Karyna Samson RN RN aj1 Siri Peñaloza Betty bq Nieto, Roman, MD MD rn Pena, Laura, RN RN lp1 Dougie Osorio RN RN jb4 Arjun Hummel RN RN jd3 Corrections: (The following items were deleted from the chart) 04/15 22:03 21:54 Presenting complaint: Patient states: She has had trouble walking and aj1 double vision for the past 2 hours. Patient also reports numbness to bilateral thighs and difficulty concentrating. Speech is slow, but clear. [employer] Packages Leak Tester are equal bilaterally, equal eye brow raises. Patient states that she drinks alcohol daily, but is trying to cut back. Shaking noted to bilateral hands. Patient also reports abdominal pain, states that she has a history of gastric ulcers aj08 15: 21:58 BP 177 / 141; Pulse 155bpm; Resp 23bpm; Pulse Ox 100% RA; Temp 98.4F aj1 Temporal; 68.04 kg Reported; Height 5 ft. 8 in. Reported; BMI: 22.8; aj1 04/16 00:04/15 23:35 General: Appears in no apparent distress. Behavior is calm, jb4 cooperative, jb4 04/16 00:04/15 23:35 Pain: Denies pain. jb4 jb4 04/16 00:04/15 23:35 Neuro: Level of Consciousness is awake, alert, obeys commands, jb4 Oriented to person, place, time, situation, [employer]ductor Packages Leak Tester are equal bilaterally Moves all extremities. Full function Weakness in bilateral arm(s) leg(s) Gait is unsteady, Speech is normal, Facial symmetry appears normal, Pupils are PERRLA, jb4 04/16 00:04/15 23:35 Cardiovascular: Heart tones S1 S2 present Patient's skin is warm jb4 and dry. jb4 04/16 00:04/15 23:35 Respiratory: Airway is patent Respiratory effort is even, jb4 unlabored, Respiratory pattern is regular, symmetrical, jb4 04/16 00:33 04/15 23:35 GI: Abdomen is flat, Bowel sounds present X 4 quads. Abd is soft jb4 and non tender X 4 quads. jb4 04/16 00:33 04/15 23:35 : No signs and/or symptoms were reported regarding the jb4 genitourinary system. jb4 04/16 00:04/15 23:35 EENT: No signs and/or symptoms were reported regarding the EENT jb4 system. jb4 04/16 00:33 04/15 23:35 Derm: Skin is intact, Skin is pink, warm \\T\\ dry. jb4 jb4 04/16 00:33 04/15 23:35 Musculoskeletal: Circulation, motion, and sensation intact. jb4 jb4 04/16 00:34 04/15 22:00 General: Appears in no apparent distress. Behavior is calm, jb4 cooperative, jb4
[2018-04-16] MEDS ORDERED: FLUMAZENIL 0.1 MG/ML (5 mL VIAL) IV PRN (03:59)
[2018-04-16] MEDS ORDERED: ONDANSETRON 4 MG/2 ML VIAL IV PRN (03:59)
[2018-04-16] MEDS: D5NS KCL 20MEQ 20 MEQ/1,000 ML BAG IV SCH ×2 (05:33→13:54)
[2018-04-16 06:08] LABS: Urine Appearance CLEAR; Urine Bilirubin NEGATIVE (NEG); Urine Blood NEGATIVE (NEG); Urine Color YELLOW; Urine Glucose NEGATIVE (NEG); Urine Protein NEGATIVE (NEG); Urine Specific Gravity <=1.005 (1.005-1.030); Urine Urobilinogen 0.2 mg/dL (0.2-1.0)
[2018-04-16 06:11] LABS: Urine Microscopic Reflex NO UMIC
[2018-04-16 06:15] LABS: ALT/SGPT 54 U/L (12-78); AST/SGOT 160 U/L (15-37); Albumin 3.2 g/dL (3.4-5.0); Alkaline Phosphatase 89 U/L (45-117); BUN Blood Urea Nitrogen 8 mg/dL (7-18); Bicarbonate 27 mmol/L (21-32); Glucose Level 72 mg/dL (74-106); Potassium 3.3 mmol/L (3.5-5.1); Protein, Total 7.1 g/dL (6.4-8.2); Sodium Level 140 mmol/L (136-145)
[2018-04-16] MEDS ORDERED: POTASSIUM CL SA 10 MEQ TAB PO ONE (06:25)
[2018-04-16] MEDS: MULTIVITAMIN TAB PO SCH (09:59)
[2018-04-16] MEDS: METOPROLOL XL 100 MG TAB PO SCH (10:46)
--- NOTE | 2018-04-16 11:23 | RAD REPORT ---
EXAM DESCRIPTION: CT - Head Brain Wo Cont - 04/16/2018 7:03 am CLINICAL HISTORY: Visual disturbance, difficulty walking, stroke-like symptoms, lower extremity numb ness A preliminary report was provided at the time of the study and reviewed prior to final report. The final report was delayed due to PACs and/or Fluency technical problems that existed at the time of the study or during expected/usual dictation time period. COMPARISON: CT head May 2017 TECHNIQUE: Axial 5 mm thick images of the head were obtained without IV contrast. All CT scans are performed using dose optimization technique as appropriate and may include automated exposure control or mA/KV adjustment according to patient size. FINDINGS: No intracranial hemorrhage, mass, edema or shift of mid-line structures. No acute infarcti on changes seen. No cortical edema or sulcal effacement. Sulcal spaces are relatively prominent for t he patient's age. Pattern is not substantially different. Ventricles are in proportion to any volume loss. Mastoid air cells and visualized portions of the paranasal sinuses are clear. No acute bony findings. CT head findings are not significantly different from comparison. IMPRESSION: Negative non-contrast CT head examination for acute findings or significant interval noé nge.
[2018-04-16] MEDS: PANTOPRAZOLE 40MG TABLET PO SCH (13:54)
[2018-04-16] MEDS: LORazepam 2 MG/ML VIAL IV PRN ×4 (13:56→23:45)
[2018-04-16] MEDS ORDERED: ONDANSETRON 4 MG (ODT) TAB PO PRN (15:32)
[2018-04-16 16:27] LABS: RPR Titer ND
[2018-04-16 16:54] LABS: Magnesium 1.5 mg/dL (1.8-2.4); Thyroid Stimulating Hormone 1.39 uIU/mL (0.360-3.740)
[2018-04-16] MEDS ORDERED: Magnesium Sulfate 2gm IVPB 2 G/50 ML BAG IV ONE (20:00)
[2018-04-16 21:36] LABS: RPR (Rapid Plasma Reagin) NON-REACT (NON-REACT)
[2018-04-17] MEDS: D5NS KCL 20MEQ 20 MEQ/1,000 ML BAG IV SCH ×3 (02:33→13:56)
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
[2018-04-17 04:44] LABS: BUN Blood Urea Nitrogen 4 mg/dL (7-18); Bicarbonate 25 mmol/L (21-32); Glucose Level 86 mg/dL (74-106); Phosphorus 1.7 mg/dL (2.5-4.9); Sodium Level 140 mmol/L (136-145)
[2018-04-17] MEDS: PANTOPRAZOLE 40MG TABLET PO SCH (05:44)
[2018-04-17] MEDS: METOPROLOL XL 100 MG TAB PO SCH (05:44)
[2018-04-17] MEDS: POTASS/SODIUM PHOSPHATE 1 PKT POWD.PACK PO SCH ×3 (05:44→09:40)
--- NOTE | 2018-04-17 08:13 | EKG ---
Test Date: 2018-04-15 Test Time: 21:54:21 Web Assistant: BP MEASUREMENT RESULTS: Intervals: Rate: 145 KS: 126 QRSD: 70 QT: 354 QTc: 549 [place]: P: 77 KS: 126 QRS: 57 T: 69 INTERPRETIVE STATEMENTS: Sinus tachycardia Nonspecific ST and T wave abnormality Abnormal ECG Compared to ECG 01/06/2018 15:07:16 ST (T wave) deviation now present Sinus rhythm no longer present Left ventricular hypertrophy no longer present Prolonged QT interval no longer present Electronically Signed On 04-17-18 08:13:03 CDT by Ivan Bradley
[2018-04-17] MEDS ORDERED: FOLIC ACID 1 MG in NA CHLORIDE 0.9% 50 ML IV SCH (09:00)
[2018-04-17] MEDS ORDERED: METOPROLOL XL 100 MG TAB PO SCH (09:00)
[2018-04-17] MEDS ORDERED: FOLIC ACID 5 MG/ML VIAL IVP SCH (09:00)
[2018-04-17] MEDS ORDERED: PANTOPRAZOLE 40MG TABLET PO SCH (09:00)
[2018-04-17] MEDS: LORazepam 2 MG/ML VIAL IV PRN (09:32)
[2018-04-17] MEDS: MULTIVITAMIN TAB PO SCH (09:40)
[2018-04-17] MEDS: THIAMINE 200 MG/2 ML INJ IVP SCH (09:40)
[2018-04-17] MEDS ORDERED: LORazepam 2 MG/ML VIAL IM PRN (10:03)
--- NOTE | 2018-04-17 11:02 | RAD REPORT ---
EXAM DESCRIPTION: MRI - Lumbar Spine Wo Madi - 04/17/2018 10:14 am CLINICAL HISTORY: UNABLE TO WALK, BI-LAT LEG WEAKNESS, TULIO THIGHS AND PERINEAL PARESTHESIA COMPARISON: None. TECHNIQUE: Sagittal T1-weighted, T2-weighted and T2-STIR weighted sequences were obtained. Axial T1 -weighted and heavily T2-weighted sequenceswere obtained through the lumbar disc levels. FINDINGS: Lumbar bodies are normal in height and alignment. No suspicious marrow signal. No paraspi nal masses. Patient has a relatively prominent red marrow pattern in the vertebrae has a normal varia nt. Conus is normal with no clumping or thickening of the cauda equina. T12-L1 level: No significant findings. L1-2 level: No significant findings. L2-3 level: Disc is desiccated without loss in disc height. No herniation or significant disc bulge. No canal or foramen stenosis. No significant facet degenerative change L3-4 level: Disc is desiccated without loss in disc height. Very minimal disc bulge within the centra l canal and left foramen disc bulge changes are noted. No central spinal stenosis. Left foraminal enc roachment is mild. Ample perineural fat surrounds the exiting nerve root. No significant facet or lig amentous finding. L4-5 level: Disc is desiccated with a slight loss in disc height. There is prominent bulging of disc material across the central canal with disc bulge extending into each exit foramen. No significant ce ntral spinal stenosis. Perineural fat surrounds each exiting nerve root. Protruding disc material is prominent flattening the thecal sac. However, midline canal diameter is at least 12 mm. Facet degener ative change and ligamentous thickening are present. L5-S1 level: Disc is thinned. L5 is sacralized on the left. This is likely an nonmovable disc level. No herniation or disc bulge. Midline canal diameter is 10 mm in the midline. This is mostly on a mari enital basis. Mild spurring and disc bulge changes in each exit foramen are present not causing signi ficant foraminal stenosis. IMPRESSION: No disc herniation, central spinal stenosis or other significant finding to explain the severity of patient's symptoms. L4-5 disc level shows prominent central canal disc bulge not resulting in stenosis. Patient has some disc bulge and spurring changes in the exit foramina of L3-4 on the left, L4-5 bilat eral and L5-S1 bilateral. There is still ample perineural fat surrounding these exiting nerve roots. No suspicious vertebral body finding.
--- NOTE | 2018-04-17 22:30 | PN ---
Subjective: Diana Watson is stable. Denies any chest pain, nausea, vomiting. She is heavily nellie burke now with alcohol withdrawal medications. Objective: Chest: Clear. Heart: Regular. Abdomen: No guarding, no rebound, no rigidity. Somnolent from medications. Investigation: Lumbar spine showed disk bulging, but no stenosis L4-L5 with some arthritic changes o therwise. Assessment And Plan: 1.Alcohol withdrawal, alcohol detoxification. Needs a psychiatric help. Has very dysfunctional fam sherri. Unfortunately, she is not keeping away from alcohol use. Mother and sister also drink heavy. I have explained to her in detail that if she does not give up alcohol her life and her kids life maximo l be ruined. One of the sons already is into drugs. 2.Vitamin D is slightly low at 10.7. We will start replacement for this on an outpatient basis. We do not have a psychiatrist in this hospital. She needs one. Her geriatric social work professor helped us with place ment for the same. CORNELL/TREVOR Voice ID: [id number] Report ID: [id number]
[2018-04-18] MEDS: PANTOPRAZOLE 40 MG INJ IVP SCH ×3 (00:01→20:51)
[2018-04-18] MEDS: METOPROLOL XL 100 MG TAB PO SCH (05:35)
[2018-04-18] MEDS: D5NS KCL 20MEQ 20 MEQ/1,000 ML BAG IV SCH ×4 (05:36→20:51)
[2018-04-18 06:18] LABS: BUN Blood Urea Nitrogen 4 mg/dL (7-18); Bicarbonate 29 mmol/L (21-32); Glucose Level 97 mg/dL (74-106); Phosphorus 2.2 mg/dL (2.5-4.9); Potassium 4.2 mmol/L (3.5-5.1); Sodium Level 139 mmol/L (136-145)
[2018-04-18] MEDS: POTASS/SODIUM PHOSPHATE 1 PKT POWD.PACK PO SCH ×3 (06:52→10:43)
[2018-04-18] MEDS ORDERED: POTASS/SODIUM PHOSPHATE 1 PKT POWD.PACK PO SCH (07:00)
[2018-04-18] MEDS: THIAMINE 200 MG/2 ML INJ IVP SCH (09:26)
[2018-04-18] MEDS: MULTIVITAMIN TAB PO SCH (09:26)
--- NOTE | 2018-04-18 18:02 | PN ---
Subjective: The patient is feeling lot better. No tremors. No chest pain, cough, sputum, hemoptysis, melena. Objective: Vital Signs: Blood pressure 135/95, respiratory rate 18, temperature 97.7. Neurological: No deficit, but she has some paresthetic changes in thighs. And now she says that for a few months, she is having an abdominal band like finding around umbilicus region. A nonspecific finding. Assessment And Plan: 1. Alcohol, detox withdrawal. Waiting for social insurance adviser. 2. Separate neurological findings. This could be from alcoholic neuropathy or myelitis. We will consult the neurologist if available. Prognosis is guarded. I am waiting for social insurance adviser to decide with the patient's company about alcohol detoxification program. This can be from anxiety and withdrawal of alcohol use. She is on therapy for this. CORNELL/TREVOR Voice ID: [id number] Report ID: [id number] REUBEN
[2018-04-18] MEDS: SODIUM CHLORIDE 0.9% 10ML INJ IV PRN (20:51)
[2018-04-19] MEDS: D5NS KCL 20MEQ 20 MEQ/1,000 ML BAG IV SCH ×4 (01:59→17:04)
[2018-04-19 04:49] LABS: BUN Blood Urea Nitrogen 5 mg/dL (7-18); Bicarbonate 29 mmol/L (21-32); Glucose Level 107 mg/dL (74-106); Phosphorus 3.9 mg/dL (2.5-4.9); Potassium 4.1 mmol/L (3.5-5.1); Sodium Level 137 mmol/L (136-145)
[2018-04-19 04:52] VITALS: BMI 22.4
[2018-04-19] MEDS: METOPROLOL XL 100 MG TAB PO SCH (05:44)
--- NOTE | 2018-04-19 08:57 | RAD REPORT ---
EXAM DESCRIPTION: CT - Angio Aorta For Dissection - 04/19/2018 8:46 am CLINICAL HISTORY: Chest pain radiating to the back. abdomen and chest pain COMPARISON: CTANGIO AORTA FOR DISSECTION dated 11/06/2014 TECHNIQUE: CT angiography of the aorta was performed with MIPs. All CT scans are performed using dose optimization technique as appropriate and may include automated exposure control or mA/KV adjustment according to patient size. FINDINGS: A left aortic arch is present with normal branching pattern of the great vessels.No acute aortic finding is seen such as aneurysm, penetrating ulcer or dissection. Mild ectasia again noted of the ascending aorta measuring 4.3 cm. The celiac axis, SMA, SUSHIL and renal arteries are widely patent . Several accessory left renal arteries are noted. No evidence of pulmonary embolism. The lungs are clear. Diffuse fatty liver. Cholecystectomy clips.The spleen, pancreas, adrenal glands and kidneys are withi n normal limits for arterial phase imaging. No bowel obstruction, free fluid or abscess.No pathologic enlarged lymphadenopathy identified. No fracture or worrisome bone lesion seen. IMPRESSION: No acute aortic finding is demonstrated.Ectasia of the ascending aorta is noted measurin g up to 4.3 cm. Hepatomegaly with diffuse fatty liver. Cholecystectomy clips.
[2018-04-19] MEDS: THIAMINE 200 MG/2 ML INJ IVP SCH (09:00)
[2018-04-19] MEDS: MULTIVITAMIN TAB PO SCH (09:00)
[2018-04-19] MEDS: SODIUM CHLORIDE 0.9% 10ML INJ IV PRN (09:19)
[2018-04-19] MEDS: PANTOPRAZOLE 40 MG INJ IVP SCH ×2 (09:19→20:27)
[2018-04-19] MEDS: AMLODIPINE 5 MG TAB PO SCH (15:51)
--- NOTE | 2018-04-19 22:12 | RAD REPORT ---
EXAM DESCRIPTION: MRI - Thoracic Spine W/Wo Contr - 04/19/2018 9:51 pm CLINICAL HISTORY: Bilateral leg numbness COMPARISON: None. TECHNIQUE: Sagittal T1 weighted, T2 weighted and T2 STIR weighted sequences were obtained. Axial T2 weighted images were obtained through each disc level. 16 cc MultiHance administered intravenously FINDINGS: A bulging/herniated disc is not seen. The thecal sac is normal caliber. The neural foramina are patent. No abnormal enhancement is noted The spinal cord is normal caliber and signal. No abnormal signal within the bones is noted. IMPRESSION: Unremarkable MRI thoracic spine
--- NOTE | 2018-04-19 22:53 | PN ---
Subjective: Ms. Watson had new complaints today, upper chest pain radiating to back, upper abdominal pain radiating to back, and worsening of her tingling in the legs and thighs. Physical Examination: General: The patient has been sleeping whenever I see her. Vital Signs: Blood pressure is 140/96. Pulse is 100. HEENT: No JVD. No carotid bruits. Chest: Clear. Heart: Regular. Neurological: There are no signs of any tremors currently. There are no signs of withdrawal. She d oes have some sensory changes in both medial thighs and perineal regions. Assessment And Planning: Neurological changes like a transverse myelitis. Consult Dr. Shafer. He wi ll be seeing the patient today. The patient had MRI of lumbar spine, which is negative except for so me arthritis. Electrolytes are stable currently with potassium slightly low, but corrected now to 4. 1. CT dissection protocol is negative for dissection. The patient will be seen by Dr. Shafer. We we re ambulating her today. Possible discharge tomorrow. 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 Zakia montgomery has been drinking heavy since age 17 and unfortunately cannot be corrected overnight. She is advis ed to go to alcohol detox facilities with help of social service coordinator locally here and has been documented. CORNELL/MODL Voice ID: [id number] Report ID: [id number]
[2018-04-20] MEDS: D5NS KCL 20MEQ 20 MEQ/1,000 ML BAG IV SCH ×3 (03:22→18:40)
[2018-04-20] MEDS: METOPROLOL XL 100 MG TAB PO SCH (05:09)
[2018-04-20] MEDS: AMLODIPINE 5 MG TAB PO SCH (09:09)
[2018-04-20] MEDS: MULTIVITAMIN TAB PO SCH (09:10)
[2018-04-20] MEDS: THIAMINE 200 MG/2 ML INJ IVP SCH (09:10)
[2018-04-20] MEDS: PANTOPRAZOLE 40 MG INJ IVP SCH ×2 (09:10→20:57)
[2018-04-20] MEDS: SODIUM CHLORIDE 0.9% 10ML INJ IV PRN (09:11)
[2018-04-20] MEDS ORDERED: PROMETHAZINE 12.5 MG/SUPP PR PRN (12:36)
[2018-04-20] MEDS: clonazePAM 0.5 MG TAB PO SCH ×2 (12:53→20:57)
--- NOTE | 2018-04-20 17:57 | PN ---
Subjective: Diana is complaining about not feeling good, still having now queasiness in the abdomi nal area. She is possibly having anxiety attack or withdrawal from alcohol at this point. Physical Examination: Vital Signs: Blood pressure 149/97, temperature 98.3. HEENT: Exam no JVD. No carotid bruits. Chest: Clear. Heart: Regular. Abdomen: No guarding. No rebound. No rigidity. Assessment And Plan: The patient will be discharged home with her sister. I have advised them not to drink any longer, use a Klonopin I have given her to cut down the craving for alcohol. Her family s ituation is very poor as described in H and P, and unfortunately she is prone to get alcohol use or o veruse like before. Currently, she is stable. I am giving her Klonopin to cut down the anxiety from not having alcohol. Also given her Lexapro at discharge time for anxiety and depression. She will follow up in office in a week or 10 days, but she may not go home today if she is not good enough, I will probably send her home tomorrow. CORNELL/TREVOR Voice ID: [id number] Report ID: [id number]
--- NOTE | 2018-04-21 01:22 | CON ---
Date of Consultation: 04/19/2018 Reason For Consultation: Legs weak. History Of Present Illness: A 42-year-old lady with a history of hypertension and alcohol abuse, bro ught to the hospital by family because of leg weakness, paresthesias in the legs, and difficulty with ambulation. She has been receiving IV thiamine, but continues to notice paresthesias in the legs an d thoracoabdominal radicular symptoms with a bandlike paresthesia in the abdomen as well as some sadd le anesthesia. CT scan of the brain was unremarkable. Lumbar MRI; slight bulging disks, cauda equin a, and conus appear to be unremarkable. The patient additionally complains of headache, some mental fogginess, all little suggestive of nutritional deficiency. Standard labs are unremarkable. CBC is normal. Electrolytes are normal. TSH is normal. B12 is 965. Consultation was requested. Past Medical History: Alcoholism and hypertension. Medications: Norvasc, Klonopin, vitamin D, metoprolol, thiamine, and Phenergan as needed. Allergies: CEFAZOLIN. Social History: Drinks heavily. Normally independent with basic activities of daily living. Going through a divorce. Family History: No family history of polyneuropathies. Review of Systems: General: Chronically ill. Eyes: Denies. Ears, Nose, and Throat: No dysarthria. Cardiovascular: Hypertension. Pulmonary: Negative. GI: Denies. Musculoskeletal: Arthralgias. Neurologic: Headaches as well as the aforementioned. Psychiatric: Negative. Endocrine: Negative. Hematologic: Negative. Physical Examination: Vital Signs: On examination, she is afebrile. Vitals are stable. General: She is awake, alert, and oriented. HEENT: Pupils are reactive. No nystagmus. Ocular motion full. Holley full. Face symmetric. Tong ue midline. Soft palate elevates bilaterally. Neck: Supple. Extremities: Strength full. Paresthesias distally. Reflexes suppressed, but present. Cerebellar e xamination demonstrates no ataxia. Toes are downgoing. There is no pain on percussion of the spine. Impression: Paresthesias. There is no strong evidence of lesion of the conus medullaris to account for the saddle anesthesia. We will check MRI of thoracic spine, continue IV thiamine, and check B1 l evel, although prior to administration likely. We will make that test unless it is extremely low, di fficult to interpret. If all the aforementioned data are unremarkable, brain MRI would be the next a ppropriate study. Thank you for the consult. We will continue to follow with you. SABINA Voice ID: [id number] Report ID: [id number]
--- NOTE | 2018-04-21 01:37 | PN ---
Date of Progress Note: 04/20/2018 Reason: Paresthesias. Interval History: The patient is stable. Continues to complain of headache. Paresthesias are now w orse. MRI of thoracic spine is unremarkable. Physical Examination: General: On examination, she is awake and alert. HEENT: Pupils are reactive. Ocular motion is full. Holley are full. Neck: Supple. Extremities: Strength full. Sensation decreased distally. Reflexes suppressed. Neurologic: Cerebellar examination demonstrates no ataxia. Pertinent Laboratory Data: No additional labs for today. 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 Also complains of headache and confu nadia. Plan: We will check a brain MRI stroke protocol, rule out superimposed structural abnormality. Cont inue intravenous thiamine replacement. We will continue to follow with you. SABINA Voice ID: [id number] Report ID: [id number]
[2018-04-21] MEDS: METOPROLOL XL 100 MG TAB PO SCH (05:14)
[2018-04-21] MEDS: D5NS KCL 20MEQ 20 MEQ/1,000 ML BAG IV SCH (05:14)
--- NOTE | 2018-04-21 07:51 | RAD REPORT ---
EXAM DESCRIPTION: MRI - MRA Head Wo Cont - 04/20/2018 10:09 pm CLINICAL HISTORY: Memory loss, bilateral leg weakness, stroke-like symptoms COMPARISON: CT head April 15 TECHNIQUE: Axial and coronal 3D [id number] image acquisition was performed. 3D rotational images were generated with source and reconstruction images reviewed. FINDINGS: Major venous sinuses are patent. Basilar artery is mildly tortuous with no stenosis or dissection. Vertebral artery findings are detai led in separate MRA neck examination. There is a bulbous tip to the basilar artery not believed to be aneurysmal dilatation. No significant atherosclerotic changes in the posterior cerebral artery distr ibutions. From skullbase to termination, the internal carotid arteries show no dissection, stenosis o r significant atherosclerotic changes. No stenosis, occlusion or significant atherosclerotic changes in the bilateral middle cerebral artery distributions. The right anterior cerebral artery A1 segment is small in size. This is believed to be normal variant rather than significant atherosclerotic hurtado e. Patient has a large anterior communicating artery. Anterior cerebral arteries also without signifi cant atherosclerotic change. No aneurysm or vascular malformation. IMPRESSION: No aneurysm or vascular malformation. No significant atherosclerotic change, stenosis or other significant finding in the intracranial circ ulation. Left vertebral artery is separately detailed in MRA neck report.
--- NOTE | 2018-04-21 07:55 | RAD REPORT ---
EXAM DESCRIPTION: MRI - Brain W/Wo Cont - 04/20/2018 10:09 pm CLINICAL HISTORY: Leg weakness, stroke-like symptoms COMPARISON: CT head March TECHNIQUE: Sagittal and axial T1-weighted images were obtained. Axial PD/heavily T2-weighted and T2- FLAIR images were obtained along with axial DWI/ADC mapping sequences. Coronal heavily T2 weighted s equence obtained. Axial and coronal post-contrast T1-weighted images were also obtained. A ? Ml Mult iHance contrast following utilized. FINDINGS: No intracranial hemorrhage, mass or acute infarction. There is no edema or shift of midli ne structures. No extra-axial fluid collections. Richardson-matter/white matter junction is preserved. Sig nal voids are seen as a normal finding in the major intracranial vessels. No atrophy or chronic ische sofya changes present. Ventricles are normal. No vasculitis, demyelinization or other suspicious brain parenchymal finding. No globe or orbital content abnormality. No sella or supra sella abnormality. Post-contrast images show normal enhancement. No dural thickening. Mastoid air cells and paranasal sinuses are clear. IMPRESSION: Negative contrast enhanced MRI of the Brain.
--- NOTE | 2018-04-21 08:02 | RAD REPORT ---
EXAM DESCRIPTION: MRI - MRA Neck W/Wo Cont - 04/20/2018 10:09 pm CLINICAL HISTORY: Bilateral leg weakness, stroke-like symptoms COMPARISON: None. TECHNIQUE: Axial and coronal 3D [id number] image acquisition was performed. 3D rotational images were generated with source and reconstruction images reviewed. FINDINGS: Aortic arch is 3 vessel origin with no origin stenosis. Bilateral common carotid artery sh ow no suspicious findings. The bilateral internal carotid arteries are also unremarkable from origin to skullbase. Right vertebral artery origin shows no stenosis. Right vertebral artery is larger than typically seen . A left vertebral artery is not definitively defined. There is a very small barely visible vessel th at generally follows the course of the left vertebral artery. This is possibly a very small left vert ebral artery or a small collateral or parallel running muscular branch. Left vertebral atheroscleroti c change or acute dissection are not suspected. The large size of the right vertebral artery would in dicate that whatever the etiology the left vertebral finding is long-standing. IMPRESSION: No carotid artery abnormalities. Large right vertebral artery with absent or very small left vertebral artery along its entire course. Whether the left vertebral artery is absent or very small, the large size of the right vertebral ivana ry would indicate this is a long-standing finding.
[2018-04-21 08:03] VITALS: BP 143/99; TEMP 97.3
[2018-04-21] MEDS: AMLODIPINE 5 MG TAB PO SCH (09:21)
[2018-04-21] MEDS: MULTIVITAMIN TAB PO SCH (09:21)
[2018-04-21] MEDS: clonazePAM 0.5 MG TAB PO SCH ×2 (09:21→12:34)
[2018-04-21 10:32] VITALS: O2SAT 99
[2018-04-23 21:01] LABS: Albumin, (SPE) 3.3 g/dL (3.8-4.8); Alpha-1-Globulins 0.3 g/dL (0.2-0.3); Alpha-2-Globulins 0.7 g/dL (0.5-0.9); Gamma Globulins 0.8 g/dL (0.8-1.7); INTERPRETATION REPORT
[2018-04-24] MEDS ORDERED: DRISDOL (VITAMIN D=ERGOCALCIFEROL) 50000 UNIT CAP PO SCH (09:00)
== END 2018-04-21 14:24 | disposition home or self-care (01) | DRG 897 ==
LOC: ER 21:40 → ERHOLD 04-16 02:53 → 3RD-ICU 04-16 03:56 → 4TH 04-17 12:10
PROVIDERS: ADMIT Internal Medicine; ATTEND Internal Medicine
DX: F10.239 Alcohol dependence with withdrawal, unspecified (principal); R20.2 Paresthesia of skin; G62.89 Other specified polyneuropathies; F41.8 Other specified anxiety disorders; E87.8 Other disorders of electrolyte and fluid balance, not elsewhere classified; I10 Essential (primary) hypertension; K27.9 Peptic ulcer, site unspecified, unspecified as acute or chronic, without hemorrhage or perforation; Z72.89 Other problems related to lifestyle
CPT/HCPCS: 36415; 70450; 70544; 70549; 70553; 71275; 72148; 72157; 74175; 80048; 80053; 80076; 80307; 80320; 81003; 81015; 82306; 82607; 82962; 83690; 83735; 84100; 84132; 84165; 84443; 84484; 85025; 86592; 93005; 96365; 96366; 96375; 97163; 99285; A9577; C9113; J2405; J3360; J3411; J3475; J7030; Q9967

== ENCOUNTER 2018-06-06 15:27 | Inpatient (IN) | payer OTHER ==
--- NOTE | 2018-06-06 16:23 | RAD REPORT ---
EXAM DESCRIPTION: CT - Head Brain Wo Cont - 06/06/2018 4:16 pm CLINICAL HISTORY: Ataxia COMPARISON: March 2018 TECHNIQUE: Computed axial tomography of the head was obtained. IV contrast was not requested. All CT scans are performed using dose optimization technique as appropriate and may include automated exposure control or mA/KV adjustment according to patient size. FINDINGS: An intracranial bleed is not seen . The ventricles are normal in caliber. No extra-axial fluid collection is noted. Fluid within the sinuses/ mastoids is not seen. IMPRESSION: No acute intracranial abnormality is seen. If patient's symptoms persist MRI of the bra in would be recommended.
--- NOTE | 2018-06-06 16:50 | RAD REPORT ---
EXAM DESCRIPTION: [place] Single View06/06/2018 4:43 pm CLINICAL HISTORY: Chest pain COMPARISON: December 2017 FINDINGS: The lungs appear clear of acute infiltrate. The heart is normal size IMPRESSION: No acute abnormalities displayed
[2018-06-06 17:29] LABS: Barbiturates NEGATIVE (NEGATIVE); Benzodiazepines NEGATIVE (NEGATIVE); Cocaine NEGATIVE (NEGATIVE); METHAMPHETAM NEGATIVE (NEGATIVE); Methadone NEGATIVE (NEGATIVE); Opiates NEGATIVE (NEGATIVE); Phencyclidine NEGATIVE (NEGATIVE); THC Cannibis NEGATIVE (NEGATIVE)
[2018-06-06] MEDS ORDERED: NA CHLORIDE 0.9% 1,000 ML ONE ×3 (17:36→21:16)
[2018-06-06 17:37] LABS: Absolute Lymphocytes (CBC) 1.6 K/uL (0.7-4.9); Absolute Monocytes 0.4 K/uL (0.1-1.3); Absolute Neutrophil 3.4 K/uL (1.8-8.0); Basophils % 0.8 % (0-1.3); Eosinophils % 0.5 % (0-4.4); Hematocrit 40.1 % (36.0-45.0); Lymphocytes % 29.9 % (15.3-44.8); MCH 33.4 pg (27.0-35.0); MCV 97.7 fL (80-100); MPV 9.1 fL (7.6-11.3); Monocytes % 6.8 % (3.3-12.3)
[2018-06-06 17:41] LABS: Protime INR 1.08
[2018-06-06 18:11] LABS: ALT/SGPT 42 U/L (12-78); AST/SGOT 152 U/L (15-37); Albumin 4.1 g/dL (3.4-5.0); Alkaline Phosphatase 133 U/L (45-117); BUN Blood Urea Nitrogen 3 mg/dL (7-18); Bicarbonate 26 mmol/L (21-32); Bilirubin Direct 0.5 mg/dL (0-0.2); Bilirubin Total 1.3 mg/dL (0.2-1.0); Glucose Level 88 mg/dL (74-106); Protein, Total 8.5 g/dL (6.4-8.2); Sodium Level 132 mmol/L (136-145)
[2018-06-06 18:15] LABS: Arterial Blood Carboxyhemoglob 1.5 % (0-1.5); Blood Gas Oxyhemoglobin 95.8 % (94-97); Blood O2 Saturation 98.4 % (92-98.5)
[2018-06-06] MEDS ORDERED: LORazepam 2 MG/ML VIAL ONE ×2 (18:20→21:16)
[2018-06-06 18:25] LABS: Potassium 2.7 mmol/L (3.5-5.1)
[2018-06-06 18:33] LABS: T3 Free 3.94 pg/mL (2.18-3.98); Thyroid Stimulating Hormone 1.3 uIU/mL (0.360-3.740)
[2018-06-06 18:58] LABS: Urine Blood NEGATIVE (NEG); Urine Glucose NEGATIVE (NEG); Urine Protein NEGATIVE (NEG); Urine Specific Gravity <1.005 (1.005-1.030)
--- NOTE | 2018-06-06 19:15 | RAD REPORT ---
EXAM DESCRIPTION: CT - Chest For Pe Angio - 06/06/2018 7:02 pm CLINICAL HISTORY: Chest pain. CHEST PAIN COMPARISON: Chest For Pe Angio dated 02/12/2017 TECHNIQUE: CT angiogram of the pulmonary arteries was performed with MIP. All CT scans are performed using dose optimization technique as appropriate and may include automated exposure control or mA/KV adjustment according to patient size. FINDINGS: No evidence of pulmonary thromboembolism. Ectasia of the ascending aorta is again noted measuring 4.2 cm, slightly enlarged since comparative s tudy. The lungs are clear. No significant pericardial or pleural fluid. No concerning bony finding. Fatty liver. IMPRESSION: No evidence of pulmonary thromboembolism. No acute lung findings. Slight interval increase in thoracic aortic ectasia since comparative study, now measuring 4.2 cm in maximum dimension. No acute aortic finding.
[2018-06-06] MEDS ORDERED: POTASSIUM 25 MEQ EFFERV TAB ONE ×2 (19:49→20:14)
[2018-06-06] MEDS ORDERED: ONDANSETRON 4 MG/2 ML VIAL ONE (20:14)
[2018-06-06] MEDS ORDERED: Magnesium Sulfate 2gm IVPB 2 G/50 ML BAG IV ONE (21:22)
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
[2018-06-06] MEDS ORDERED: ONDANSETRON 4 MG/2 ML VIAL IV PRN (22:19)
[2018-06-06] MEDS ORDERED: LORazepam 2 MG/ML VIAL IV PRN (22:19)
[2018-06-06] MEDS ORDERED: FOLIC ACID 5 MG/ML VIAL ONE (22:33)
[2018-06-06] MEDS ORDERED: THIAMINE 200 MG/2 ML INJ ONE (22:33)
[2018-06-06] MEDS ORDERED: NA CHLORIDE 0.9% 100 ML IV ONE (22:34)
[2018-06-07] MEDS: ACETAMINOPHEN 500 MG TAB PO PRN ×3 (01:34→20:01)
[2018-06-07] MEDS: NS KCL 20MEQ 20 MEQ/1,000 ML BAG IV SCH ×4 (01:34→23:00)
[2018-06-07] MEDS: LORazepam 2 MG/ML VIAL IV PRN ×2 (03:55→19:05)
--- NOTE | 2018-06-07 06:04 | EKG ---
Test Date: 2018-06-06 Test Time: 16:01:52 Cable Engineer: EFE MEASUREMENT RESULTS: Intervals: Rate: 122 OH: 150 QRSD: 80 QT: 334 QTc: 475 [place]: P: 77 [place]: 150 QRS: 81 T: 71 INTERPRETIVE STATEMENTS: Sinus tachycardia Nonspecific ST abnormality Abnormal ECG Compared to ECG 04/15/2018 21:54:21 No significant changes Electronically Signed On 06-07-18 06:03:56 SWIMMING PROFESSOR by Ivan Bradley
[2018-06-07 06:09] LABS: Absolute Lymphocytes (CBC) 1.1 K/uL (0.7-4.9); Absolute Monocytes 0.3 K/uL (0.1-1.3); Absolute Neutrophil 2.3 K/uL (1.8-8.0); Basophils % 0.7 % (0-1.3); Hematocrit 29.3 % (36.0-45.0); Lymphocytes % 29.5 % (15.3-44.8); MCH 34.3 pg (27.0-35.0); MCV 98.2 fL (80-100); MPV 9.2 fL (7.6-11.3); Monocytes % 8.4 % (3.3-12.3); RBC Red Blood Cell Count 2.98 M/uL (3.86-4.86)
[2018-06-07 06:11] LABS: BUN Blood Urea Nitrogen 2 mg/dL (7-18); Bicarbonate 27 mmol/L (21-32); Glucose Level 98 mg/dL (74-106); Sodium Level 140 mmol/L (136-145)
[2018-06-07] MEDS ORDERED: POTASSIUM 25 MEQ EFFERV TAB PO SCH (09:00)
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
[2018-06-07] MEDS: FOLIC ACID 1 MG, MULTIVITAMINS INJ 10 ML, THIAMINE HCL 100 MG in NA CHLORIDE 0.9% 1,000 ML IV SCH (15:07)
--- NOTE | 2018-06-07 15:31 | ECHO ---
HEIGHT: 5 ft 8 in WEIGHT: 145 lb 5 oz DATE OF STUDY: 06/07/[address]: Ivan Bradley MD 2-DIMENSIONAL: YES M.MODE: YES DOPPLER: YES COLOR FLOW: YES TDS: NO PORTABLE: NO DEFINITY: NO BUBBLE STUDY: NO DIAGNOSIS: CHEST PAIN CARDIAC HISTORY: CATHERIZATION: NO SURGERY: NO PROSTHETIC VALVE: NO PACEMAKER: NO MEASUREMENTS (cm) DIASTOLIC (NORMALS) SYSTOLIC (NORMALS) IVSd 1.1 (0.6-1.2) LA Diam 3.1 (1.9-4.0) LVEF 60% LVIDd 4.0 (3.5-5.7) LVIDs 2.7 (2.0-3.5) %FS 32% LVPWd 1.1 (0.6-1.2) Ao Diam 3.3 (2.0-3.7) 2 DIMENSIONAL ASSESSMENT: RIGHT ATRIUM: NORMAL LEFT ATRIUM: NORMAL RIGHT VENTRICLE: NORMAL LEFT VENTRICLE: NORMAL TRICUSPID VALVE: NORMAL MITRAL VALVE: NORMAL PULMONIC VALVE: NORMAL AORTIC VALVE: NORMAL PERICARDIAL EFFUSION: NONE AORTIC ROOT: NORMAL LEFT VENTRICULAR WALL MOTION: NORMAL. DOPPLER/COLOR FLOW: NORMAL. COMMENTS: NORMAL 2D ECHO WITH DOPPLER. SINUS TACHYCARDIA, 118 BEATS PER MINUTE. TECHNOLOGIST: MINI SERVIN
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
[2018-06-07] MEDS: POTASSIUM CL SA 10 MEQ TAB PO SCH (20:00)
[2018-06-07] MEDS: ATORVASTATIN 20 MG TAB PO SCH (20:00)
[2018-06-07] MEDS: SODIUM CHLORIDE 0.9% 10ML INJ IV PRN (20:01)
[2018-06-07] MEDS: PANTOPRAZOLE 40 MG INJ IVP SCH (20:01)
[2018-06-08] MEDS: ACETAMINOPHEN 500 MG TAB PO PRN ×3 (03:37→20:13)
[2018-06-08] MEDS: NS KCL 20MEQ 20 MEQ/1,000 ML BAG IV SCH ×3 (03:41→20:12)
[2018-06-08 04:50] LABS: BUN Blood Urea Nitrogen 1 mg/dL (7-18); Bicarbonate 27 mmol/L (21-32); Glucose Level 94 mg/dL (74-106); Sodium Level 142 mmol/L (136-145)
[2018-06-08 04:56] LABS: Potassium 2.7 mmol/L (3.5-5.1)
[2018-06-08] MEDS: KCL 20 MEQ/100 mL IVPB 20 MEQ/100 ML BAG IV SCH ×3 (05:44→13:35)
[2018-06-08] MEDS ORDERED: NA CHLORIDE 0.9% 250 ML ONE ×2 (07:05→15:43)
[2018-06-08] MEDS ORDERED: PANTOPRAZOLE 40MG TABLET PO SCH (09:00)
[2018-06-08] MEDS: METOPROLOL XL 100 MG TAB PO SCH (09:31)
[2018-06-08] MEDS: PANTOPRAZOLE 40 MG INJ IVP SCH ×2 (09:31→20:13)
[2018-06-08] MEDS: FOLIC ACID 1 MG, MULTIVITAMINS INJ 10 ML, THIAMINE HCL 100 MG in NA CHLORIDE 0.9% 1,000 ML IV SCH (09:31)
[2018-06-08] MEDS: POTASSIUM CL SA 10 MEQ TAB PO SCH ×2 (09:31→20:13)
--- NOTE | 2018-06-08 12:53 | P.PN ---
Subjective Date of Service: 06/08/18 Chief Complaint: WEAK IN LEGS. Subjective: No new changes TARUN HAS BEEN USING HEAVY ALCOHOL FOR YEARS AND DESPITE HELP OFFERED SHE IS NOT ABLE TO QUIT. SHE HAS LEG WEAKNESS, LEG PAIN. CHEST PAIN, NAUSEA , VOMITING ETC. SHE HAS LOW K TODAY AND PAIN FROM IV. Review of Systems 10-point ROS is otherwise unremarkable General: Weakness, Malaise Musculoskeletal: Atrophy, As per HPI Physical Examination - Vital Signs Temperature: 97.9 F Blood Pressure: 155/97 Pulse: 121 Respirations: 18 Pulse Ox (%): 100 - Physical Exam General: Alert, Moderate distress HEENT: Atraumatic, PERRLA, EOMI Neck: Supple, JVD not distended Respiratory: Clear to auscultation bilaterally, Normal air movement Cardiovascular: Regular rate/rhythm, Normal S1 S2 Gastrointestinal: Normal bowel sounds, No tenderness Musculoskeletal: No tenderness Integumentary: No rashes Neurological: Normal speech, Normal tone, Normal affect Lymphatics: No axilla or inguinal lymphadenopathy - Studies Medications List Reviewed: Yes Assessment And Plan - Current Problems (Diagnosis) (1) Anemia Onset Date: 04/11/15 Current Visit: No Status: Acute Plan: IV PROTONIX SHE HAD EGD BEFORE. UNFORTUNATELY SHE KEEPS ON DRINKING HEAVY AND SO WILL GET COMPLICATIONS LIKE ULCERS. CIRROSIS ETC. (2) Chest pain Onset Date: 11/07/14 Current Visit: No Status: Acute Plan: CT CHEST SHOWS TAA. SLIGHTLY BIGGER. CONSULT DR. BRADFORD. (3) Electrolyte imbalance Onset Date: 04/17/18 Current Visit: No Status: Chronic Plan: REPLACE K. (4) Alcohol abuse Current Visit: Yes Status: Chronic Plan: SHE HAS VERY BAD FAMILY SITUATION. , DYSFUNCTIONAL FAMILY ETC. SHE NEEDS TO GO TO A FACILITY , QUIT ALCOHOL AND GET BACK ON ROUT TO A GOOD HEALTH. SHE ALREADY HAS DAMAGED HER MUSCLES AND NERVES WITH HEAVY ALCOHOL USE. 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 HARKINS CONSULTED. OR DR BYRNE IF ANYONE IS AVAILABLE.
[2018-06-08 15:03] LABS: Absolute Lymphocytes (CBC) 1.4 K/uL (0.7-4.9); Absolute Monocytes 0.3 K/uL (0.1-1.3); Absolute Neutrophil 2.7 K/uL (1.8-8.0); Basophils % 0.4 % (0-1.3); Eosinophils % 1.9 % (0-4.4); Hematocrit 34.3 % (36.0-45.0); Lymphocytes % 30.7 % (15.3-44.8); MCH 34.7 pg (27.0-35.0); MCV 101.7 fL (80-100); MPV 9.5 fL (7.6-11.3); Monocytes % 6.8 % (3.3-12.3); RBC Red Blood Cell Count 3.38 M/uL (3.86-4.86)
[2018-06-08] MEDS ORDERED: NITROGLYCERIN 0.4 MG/TAB SL ONE (18:34)
[2018-06-08] MEDS: SODIUM CHLORIDE 0.9% 10ML INJ IV PRN (20:14)
[2018-06-08] MEDS: ATORVASTATIN 20 MG TAB PO SCH (20:14)
[2018-06-08] MEDS: ENSURE HIGH PROTEIN 237 ML CAN PO SCH (20:15)
[2018-06-09] MEDS: NS KCL 20MEQ 20 MEQ/1,000 ML BAG IV SCH ×4 (04:13→23:00)
[2018-06-09] MEDS ORDERED: REGADENOSON 0.4 MG/5 ML SYR IV ONE (07:59)
[2018-06-09] MEDS ORDERED: THIAMINE 200 MG/2 ML INJ IVP SCH (09:00)
[2018-06-09] MEDS: FOLIC ACID 1 MG, MULTIVITAMINS INJ 10 ML, THIAMINE HCL 100 MG in NA CHLORIDE 0.9% 1,000 ML IV SCH (09:07)
[2018-06-09] MEDS: PANTOPRAZOLE 40 MG INJ IVP SCH ×2 (09:08→20:20)
[2018-06-09] MEDS: SODIUM CHLORIDE 0.9% 10ML INJ IV PRN (09:09)
--- NOTE | 2018-06-09 11:29 | RAD REPORT ---
EXAM DESCRIPTION: NM - Rest Stress Cardiac Imaging - 06/09/2018 11:24 am CLINICAL HISTORY: CP Chest pain. COMPARISON: No comparisons TECHNIQUE: The patient was administered approximately 10mCi of Tc 99m Sestamibi prior to resting SPE CT imaging of the heart. The patient was then administered approximately 30 mCi of Tc 99m Sestamibi f ollowing exercise or pharmacologic stress. Multiplanar SPECT images were reviewed. FINDINGS: No stress induced ischemic defect is seen to suggest stress induced ischemia. No fixed def ect is seen to suggest hibernating myocardium or scarred myocardium. The end diastolic volume is 62 ml, the end systolic volume is 29 ml, and the ejection fraction is 54 %. IMPRESSION: No stress induced ischemia.
[2018-06-09] MEDS: METOPROLOL XL 100 MG TAB PO SCH (12:11)
[2018-06-09] MEDS: ENSURE HIGH PROTEIN 237 ML CAN PO SCH ×2 (12:13→21:00)
--- NOTE | 2018-06-09 13:36 | RAD REPORT ---
EXAM DESCRIPTION: US - Extrem Venous W Compress Apollo - 06/09/2018 1:25 pm CLINICAL HISTORY: leg pain Bilateral leg edema and swelling. COMPARISON: No comparisons TECHNIQUE: Real-time sonographic interrogation of the left and right lower extremity deep venous sys tems was performed. FINDINGS: Normal compressibility, flow augmentation, phasic flow and spontaneous flow is identified in both the left and right lower extremity deep venous systems. IMPRESSION: No sonographic evidence of left or right lower extremity deep venous thrombosis.
--- NOTE | 2018-06-09 14:06 | P.PN ---
Subjective Date of Service: 06/09/18 Chief Complaint: WEAK IN LEGS. Subjective: Improving TARUN HAS BEEN USING HEAVY ALCOHOL FOR YEARS AND DESPITE HELP OFFERED SHE IS NOT ABLE TO QUIT. SHE HAS LEG WEAKNESS, LEG PAIN. CHEST PAIN, NAUSEA , VOMITING ETC. SHE HAS LOW K TODAY AND PAIN FROM IV. TARUN HAS IMPROVED. STILL SHE HAS WEAK LEGS, WALKS WITH A CANE OR CRUTCH, COMPLAINTS OF LEG PAIN ALONG THE MEDIAL VEINS ALL THE WAY TO PELVIS. SHE IS ABLE TO EAT WITHOUT VOMITING. SHE IS ON ALCOHOL WITHDRAWAL THERAPY AND DOING WELL. SHE IS OFFERED ALCOHOL DETOX FACILITY AND SHE REFUSES TO GO YET. Review of Systems 10-point ROS is otherwise unremarkable Musculoskeletal: As per HPI Physical Examination - Vital Signs Temperature: 97.3 F Blood Pressure: 154/100 Pulse: 118 Respirations: 18 Pulse Ox (%): 100 - Physical Exam General: Alert, Mild distress HEENT: Atraumatic, PERRLA, EOMI Neck: Supple, JVD not distended Respiratory: Clear to auscultation bilaterally, Normal air movement Cardiovascular: Regular rate/rhythm, Normal S1 S2 Gastrointestinal: Normal bowel sounds, No tenderness Musculoskeletal: No tenderness Integumentary: No rashes Neurological: Normal speech, Normal tone, Normal affect, Abnormal gait (WEAK, WASTED LEGS. ) Lymphatics: No axilla or inguinal lymphadenopathy - Studies Medications List Reviewed: Yes Assessment And Plan - Current Problems (Diagnosis) (1) Anemia Onset Date: 04/11/15 Current Visit: No Status: Acute Plan: IV PROTONIX SHE HAD EGD BEFORE. UNFORTUNATELY SHE KEEPS ON DRINKING HEAVY AND SO WILL GET COMPLICATIONS LIKE ULCERS. CIRROSIS ETC. (2) Chest pain Onset Date: 11/07/14 Current Visit: No Status: Acute Plan: CT CHEST SHOWS TAA. SLIGHTLY BIGGER. CONSULT DR. BRADFORD. (3) Electrolyte imbalance Onset Date: 04/17/18 Current Visit: No Status: Chronic Plan: REPLACE K. (4) Alcohol abuse Current Visit: Yes Status: Chronic Plan: SHE HAS VERY BAD FAMILY SITUATION. , DYSFUNCTIONAL FAMILY ETC. SHE NEEDS TO GO TO A FACILITY , QUIT ALCOHOL AND GET BACK ON ROUT TO A GOOD HEALTH. SHE ALREADY HAS DAMAGED HER MUSCLES AND NERVES WITH HEAVY ALCOHOL USE. 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 HARKINS CONSULTED. OR DR CATY IF ANYONE IS AVAILABLE. DR. HARKINS HAS SEEN HER BEFORE. SHE HAS DAMAGED HER NERVES AND MUSCLES WITH HEAVY ALCOHOL. THIS MAY NOT GET WELL. SHE KEEPS ON GOING BACK TO ALCOHOL ABUSE. REFUSES TO GET HELP.
--- NOTE | 2018-06-09 15:08 | TREADPHA ---
DX: CHEST PAIN Date of Study: 06/09/2018 Ht: 5 8 Wt: 145 lb 0 oz Consulting Physician: DR. BRADFORD MEDICATIONS: TYLENOL, LIPITOR, TOPROL XL, ZOFRAN, PROTONIX HISTORY: 42 YEAR OLD COMPLAINS OF CHEST PAIN. MEDICAL HISTORY OF HYPERTENSION, ULCERS, ETOH USE. PHYSICIAL EXAMINATION: RESTING B.P.: 138/97 RESTING H.R.: 103 RESTING EKG: SINUS TACHYCARDIA, OTHERWISE NORMAL. PROTOCOL: LEXISCAN EXERCISE TIME: 3:30 B.P. AT PEAK STRESS: 122/90 IMPRESSION: LEXISCAN INJECTED, CARDIOLITE INJECTED PER PROTOCOL. SEE NUCLEAR MEDICINE REPORT. NO SUPRAVENTRICULAR TACHYCARDIA. NO VENTRICULAR TACHYCARDIA. NO PREMATURE VENTRICULAR COMPLEXES. CHEST PRESSURE 5/10 PRIOR TO ADMINISTRATION. 6/10 AFTER INJECTION OF LEXISCAN AND IN RECOVERY.
--- NOTE | 2018-06-09 18:07 | EKG ---
Test Date: 2018-06-09 Test Time: 16:23:31 Diesel Engine Assembler: EFE MEASUREMENT RESULTS: Intervals: Rate: 103 SC: 148 QRSD: 80 QT: 346 QTc: 453 Sullivan: P: 52 SC: 148 QRS: 57 T: 58 INTERPRETIVE STATEMENTS: Sinus tachycardia Otherwise normal ECG Compared to ECG 06/06/2018 16:01:52 ST (T wave) deviation no longer present Electronically Signed On 06-09-18 18:06:16 PAPERBOARD BOX MAKER by Ivan Bradley
[2018-06-09] MEDS: ACETAMINOPHEN 500 MG TAB PO PRN (20:20)
--- NOTE | 2018-06-09 20:58 | CON ---
Reason For Consultation: Consultation called by Dr. 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 History Of Present Illness: Ms. Watson is a 42-year-old patient with a long history of hea vy alcohol abuse with withdrawal symptoms, hypokalemia, hypomagnesemia, elevated liver enzymes. She came in to [facility] on the 06 of June with her reports saying her legs and arms and chest are painful and she is weak and has difficulty walking after reportedly her snuck some meth in her cigarettes. The patient notes difficulty climbing steps without using the arms and diffi culty getting out of chairs without pushing with the arms and due to weakness in the lower extremitie s. At [facility], her alcohol level was found to be 82 with normal of less than 3. Her add itional blood work showed hypomagnesemia and hypokalemia. Potassium was 2.7. She did have slightly elevated lactic acid level and her liver function studies show elevated AST of 152, elevated alkaline phosphatase of 133, lactic acid 3. Since her admission, she has been receiving electrolyte replacement along with folic acid, thiamine, multivitamin. Her lower extremity strength has not changed. She uses crutches for ambulation. The patient said that she was in alcohol detox twice and does not want to go back, wants to just go b ack home and handle it on her own. Her head CT scan was unremarkable for any acute ischemic or hemorrhagic change. Chest and thorax CT angiogram unremarkable for pulmonary embolus. There was thoracic aortic ectasia measuring 4.2 cm max imum in dimension. Her echocardiogram showed ejection fraction 60% and was a normal study except for sinus tachycardia. Dopplers of the extremities showed no deep vein thrombus and nuclear stress test showed no stress-induced ischemia. Past Medical History: Dyslipidemia, hypertension, GE reflux. Past Surgical History: None. Social History: Patient drinks alcohol on a regular basis, unclear how much, and smokes on a regular basis. Denies any recent IV drug abuse. Family History: Noncontributory. Allergies: ANCEF. Medications At Home: Lovastatin 40 mg daily, metoprolol 100 mg daily, omeprazole daily, Phenergan berkowitz ppository as needed. Review of Systems: As indicated, she reports no weakness in the lower extremities proximally. Some pain in the lower ex tremities as well, and has some chest pain. Physical Examination: Vital Signs: Blood pressure 154/100, pulse of 118, respiratory rate 18, temperature 97.3, and oxygen saturation 100%. General: Ms. Watson is resting in bed. She is in no acute distress. HEENT: She is normocephalic, atraumatic. Sclerae anicteric. Oropharynx is pink and moist. Neck: Supple. Chest: Clear. Heart: Regular. Extremities: Show no edema, cyanosis, or clubbing. Neurological: She is alert, oriented to situation, place, and person. No expressive or receptive ap hasias. Cranial nerves 2 through 12 showed no focal deficits. Motor examination: Upper extremities , 5/5 proximally and distally; lower extremities, she is 4/5 proximally at the hip flexors and 5-/5 a t in the knee flexors and extensors, and distally 5/5 at her foot plantar and dorsiflexion. In the u pper extremities, very subtle decrease to light touch and temperature in a glove fashion; in the lowe r extremities, slightly decreased, in a stocking fashion. Reflexes are unable to be elicited at the patella and heels and are trace in the upper extremities. Coordination intact in the upper and lower extremities. Gait; she uses crutches to ambulate due to proximal lower extremity weakness. Assessment: 1.Ms. 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 She does have intact sensation but depressed reflex es. CK-MB not done recently; I advised CK-MB and aldolase to be done. 2.The patient should be in an alcohol cessation program and continued on the thiamine 100 mg twice d aily, folate 1 mg twice daily, multivitamin daily, and continue with management of her hypertension a nd dyslipidemia and gastroesophageal reflux disease. The patient does report a history of migraine h eabranden, followed by Dr. Shafer. Plan: 1.Continue with medications as needed indicated above. 2.Follow up with Dr. Shafer once discharged. LUCIO/TREVOR Voice ID: [id number] Report ID: [id number]
[2018-06-10] MEDS: NS KCL 20MEQ 20 MEQ/1,000 ML BAG IV SCH ×2 (06:21→16:40)
[2018-06-10 06:25] LABS: BUN Blood Urea Nitrogen 5 mg/dL (7-18); Bicarbonate 28 mmol/L (21-32); Glucose Level 94 mg/dL (74-106); Potassium 3.9 mmol/L (3.5-5.1); Sodium Level 143 mmol/L (136-145)
[2018-06-10] MEDS ORDERED: POTASSIUM CL SA 10 MEQ TAB PO ONE ×2 (08:16→09:11)
[2018-06-10] MEDS: METOPROLOL XL 100 MG TAB PO SCH ×3 (09:00→21:48)
--- NOTE | 2018-06-10 09:57 | P.PN ---
Subjective Date of Service: 06/10/18 Chief Complaint: PAIN BOTH LEGS MEDIAL, SEVERE AND NOW NEW HEADACHE. Subjective: Worsening TARUN HAS BEEN USING HEAVY ALCOHOL FOR YEARS AND DESPITE HELP OFFERED SHE IS NOT ABLE TO QUIT. SHE HAS LEG WEAKNESS, LEG PAIN. CHEST PAIN, NAUSEA , VOMITING ETC. SHE HAS LOW K TODAY AND PAIN FROM IV. TARUN HAS IMPROVED. STILL SHE HAS WEAK LEGS, WALKS WITH A CANE OR CRUTCH, COMPLAINTS OF LEG PAIN ALONG THE MEDIAL VEINS ALL THE WAY TO PELVIS. SHE IS ABLE TO EAT WITHOUT VOMITING. SHE IS ON ALCOHOL WITHDRAWAL THERAPY AND DOING WELL. SHE IS OFFERED ALCOHOL DETOX FACILITY AND SHE REFUSES TO GO YET. SHE HAS NEW SEVERE HEADACHE THIS AM WITH PHOTOPHOBIA, NAUSEA. WORRIED ABOUT GOING HOME. SHE HAS NO FAMILY SUPPORT. ALL FAMILY MEMBERS HAVE EITHER SOME DYSFUNCTIONAL STATUS OR NO ROOM FOR HER PROBLEMS. BOTH LEGS HURT. Review of Systems 10-point ROS is otherwise unremarkable General: Weakness Neurological: Weakness, Incoordination, As per HPI Physical Examination - Vital Signs Temperature: 97.4 F Blood Pressure: 140/91 Pulse: 92 Respirations: 16 Pulse Ox (%): 100 - Physical Exam General: Alert, Moderate distress HEENT: Atraumatic, PERRLA, EOMI Neck: Supple, JVD not distended Respiratory: Clear to auscultation bilaterally, Normal air movement Cardiovascular: Regular rate/rhythm, Normal S1 S2 Gastrointestinal: Normal bowel sounds, No tenderness Musculoskeletal: No tenderness Integumentary: No rashes Neurological: Abnormal gait, Abnormal strength (WALKS WITH CANE. NEURO EXAM PER DR. BYRNE), Abnormal tone (WASTED MUSCLES. ) Lymphatics: No axilla or inguinal lymphadenopathy - Studies Medications List Reviewed: Yes Assessment And Plan - Current Problems (Diagnosis) (1) Anemia Onset Date: 04/11/15 Current Visit: No Status: Acute Plan: IV PROTONIX SHE HAD EGD BEFORE. UNFORTUNATELY SHE KEEPS ON DRINKING HEAVY AND SO WILL GET COMPLICATIONS LIKE ULCERS. CIRROSIS ETC. (2) Chest pain Onset Date: 11/07/14 Current Visit: No Status: Acute Plan: CT CHEST SHOWS TAA. SLIGHTLY BIGGER. CONSULT DR. BRADFORD. NEG ST TEST. TAA IS WATCHED BY DR BRADFORD. (3) Electrolyte imbalance Onset Date: 04/17/18 Current Visit: No Status: Chronic Plan: REPLACE K. (4) Alcohol abuse Current Visit: Yes Status: Chronic Plan: SHE HAS VERY BAD FAMILY SITUATION. , DYSFUNCTIONAL FAMILY ETC. SHE NEEDS TO GO TO A FACILITY , QUIT ALCOHOL AND GET BACK ON ROUT TO A GOOD HEALTH. SHE ALREADY HAS DAMAGED HER MUSCLES AND NERVES WITH HEAVY ALCOHOL USE. 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 HARKINS CONSULTED. OR DR BYRNE IF ANYONE IS AVAILABLE. DR. HARKINS HAS SEEN HER BEFORE. SHE HAS DAMAGED HER NERVES AND MUSCLES WITH HEAVY ALCOHOL. THIS MAY NOT GET WELL. SHE KEEPS ON GOING BACK TO ALCOHOL ABUSE. REFUSES TO GET HELP. SHE PROMISES ME TO QUIT BUT AGAIN SHE GOES BACK TO DRINKING. SHE UNFORTUNATELY GOES BACK TO DRINKING HEAVY. SHE CARRIES POOR PROGNOSIS. (6) Alcoholic peripheral neuropathy Current Visit: Yes Status: Chronic Plan: PAIN IS WORSE. ADD LYRICA BID AND CYMBALTA DAILY. THIS WILL HELP WITH PAIN AND DEPRESSION BOTH. (7) Migraine Current Visit: Yes Status: Acute Plan: IMITREX PRN CT BRAIN SHE HAS SEVERE HEADACHE THIS AM. Qualifiers: Migraine type: without aura
[2018-06-10] MEDS: ACETAMINOPHEN 500 MG TAB PO PRN (10:07)
[2018-06-10] MEDS: PANTOPRAZOLE 40 MG INJ IVP SCH ×2 (10:09→21:49)
[2018-06-10] MEDS: ENSURE HIGH PROTEIN 237 ML CAN PO SCH ×2 (10:09→21:00)
[2018-06-10] MEDS: FOLIC ACID 1 MG, MULTIVITAMINS INJ 10 ML, THIAMINE HCL 100 MG in NA CHLORIDE 0.9% 1,000 ML IV SCH (10:09)
--- NOTE | 2018-06-10 11:06 | RAD REPORT ---
EXAM DESCRIPTION: CT - Head Brain Wo Cont - 06/10/2018 10:45 am CLINICAL HISTORY: severe headache COMPARISON: Head Brain Wo Cont dated 06/06/2018; Head Brain Wo Cont dated 04/15/2018 TECHNIQUE: All CT scans are performed using dose optimization technique as appropriate and may inclu de automated exposure control or mA/KV adjustment according to patient size. FINDINGS: No intracranial hemorrhage, hydrocephalus or extra-axial fluid collection.No areas of brai n edema or evidence of midline shift. The paranasal sinuses and mastoids are clear. The calvarium is intact. IMPRESSION: No acute intracranial abnormality.
[2018-06-10] MEDS: DULOXETINE 30 MG CAP PO SCH (12:49)
[2018-06-10] MEDS: PREGABALIN 50 MG CAP PO SCH (21:48)
[2018-06-10] MEDS: SUMATRIPTAN SUCCI 50 MG TAB PO SCH (21:49)
[2018-06-11] MEDS: NS KCL 20MEQ 20 MEQ/1,000 ML BAG IV SCH ×2 (00:50→06:12)
[2018-06-11 01:25] VITALS: BMI 22.0
[2018-06-11 06:42] LABS: BUN Blood Urea Nitrogen 4 mg/dL (7-18); Bicarbonate 30 mmol/L (21-32); Glucose Level 91 mg/dL (74-106); Potassium 4.4 mmol/L (3.5-5.1); Sodium Level 143 mmol/L (136-145)
[2018-06-11 08:49] VITALS: O2SAT 100
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
[2018-06-11] MEDS: PREGABALIN 50 MG CAP PO SCH (10:22)
[2018-06-11] MEDS: DULOXETINE 30 MG CAP PO SCH (10:22)
[2018-06-11] MEDS: METOPROLOL XL 100 MG TAB PO SCH (10:22)
[2018-06-11] MEDS: SUMATRIPTAN SUCCI 50 MG TAB PO SCH (10:23)
[2018-06-11] MEDS: PANTOPRAZOLE 40 MG INJ IVP SCH (10:24)
[2018-06-11] MEDS: SODIUM CHLORIDE 0.9% 10ML INJ IV PRN (10:24)
[2018-06-11] MEDS: FOLIC ACID 1 MG, MULTIVITAMINS INJ 10 ML, THIAMINE HCL 100 MG in NA CHLORIDE 0.9% 1,000 ML IV SCH (10:28)
[2018-06-11] MEDS: ENSURE HIGH PROTEIN 237 ML CAN PO SCH (10:31)
[2018-06-11] MEDS: ACETAMINOPHEN 500 MG TAB PO PRN (13:25)
[2018-06-11 14:15] VITALS: BP 169/91; TEMP 97.3
--- NOTE | 2018-06-12 11:13 | PN ---
Date of Progress Note: 06/08/2018 Ms. Watson was admitted on 06/06/[address] Neil's service. She was seen by Dr. Bradley on 06/07/20 18 because of chest pain, multiple metabolic abnormalities. An echocardiogram and a stress test were ordered, both within normal limit. The patient can certainly go home whenever it is okay with Dr. Leeann colindres. FLACO/TREVOR Voice ID: [id number] Report ID: [id number]
== END 2018-06-11 15:47 | disposition home or self-care (01) | DRG 897 ==
LOC: ER 15:27 → ERHOLD 22:18 → 2ND 06-07 00:16
PROVIDERS: ADMIT Internal Medicine; ATTEND Internal Medicine
DX: F10.230 Alcohol dependence with withdrawal, uncomplicated (principal); G72.1 Alcoholic myopathy; E87.6 Hypokalemia; F41.9 Anxiety disorder, unspecified; F32.9 Major depressive disorder, single episode, unspecified; I34.1 Nonrheumatic mitral (valve) prolapse; E87.8 Other disorders of electrolyte and fluid balance, not elsewhere classified; F17.210 Nicotine dependence, cigarettes, uncomplicated; D64.9 Anemia, unspecified; E83.42 Hypomagnesemia; R94.5 Abnormal results of liver function studies; I77.810 Thoracic aortic ectasia; G62.1 Alcoholic polyneuropathy; G43.009 Migraine without aura, not intractable, without status migrainosus
CPT/HCPCS: 36415; 70450; 71045; 71275; 78452; 80048; 80076; 80307; 80320; 80329; 81003; 81025; 82085; 82550; 82805; 83605; 83735; 84132; 84439; 84443; 84481; 84484; 85025; 85610; 85730; 87045; 87046; 87493; 89055; 93005; 93017; 93306; 93970; 97163; 99285; A9500; C9113; J2405; J2785; J3411; J3475; J7030; Q9967

== ENCOUNTER 2018-08-13 19:56 | Emergency (ER) | payer OTHER ==
[2018-08-13] MEDS ORDERED: Magnesium Sulfate 2gm IVPB 2 G/50 ML BAG IV ONE (21:00)
[2018-08-13] MEDS ORDERED: NA CHLORIDE 0.9% 1,000 ML ONE (21:00)
[2018-08-13 21:22] LABS: ALT/SGPT 89 U/L (12-78); AST/SGOT 158 U/L (15-37); Albumin 4.1 g/dL (3.4-5.0); Alkaline Phosphatase 123 U/L (45-117); BUN Blood Urea Nitrogen 3 mg/dL (7-18); Bicarbonate 25 mmol/L (21-32); Glucose Level 95 mg/dL (74-106); Lipase 134 U/L (73-393); Protein, Total 9.4 g/dL (6.4-8.2); Sodium Level 131 mmol/L (136-145)
[2018-08-13 21:37] LABS: Barbiturates NEGATIVE (NEGATIVE); Benzodiazepines NEGATIVE (NEGATIVE); Cocaine NEGATIVE (NEGATIVE); METHAMPHETAM NEGATIVE (NEGATIVE); Methadone NEGATIVE (NEGATIVE); Opiates NEGATIVE (NEGATIVE); Phencyclidine NEGATIVE (NEGATIVE); THC Cannibis NEGATIVE (NEGATIVE)
[2018-08-13 21:42] LABS: Absolute Lymphocytes (CBC) 1.4 K/uL (0.7-4.9); Absolute Monocytes 0.4 K/uL (0.1-1.3); Absolute Neutrophil 3.5 K/uL (1.8-8.0); Basophils % 0.5 % (0-1.3); Eosinophils % 0.1 % (0-4.4); Hematocrit 44.2 % (36.0-45.0); Lymphocytes % 25.5 % (15.3-44.8); MPV 9.8 fL (7.6-11.3); Monocytes % 7.8 % (3.3-12.3); RBC Red Blood Cell Count 4.95 M/uL (3.86-4.86)
[2018-08-13 21:44] LABS: Urine Blood NEGATIVE (NEG); Urine Glucose NEGATIVE (NEG); Urine Protein NEGATIVE (NEG); Urine Specific Gravity 1.005 (1.005-1.030); Urine pH 6.5 (5.0-7.0)
[2018-08-13] MEDS ORDERED: LORazepam 2 MG/ML VIAL ONE (22:01)
--- NOTE | 2018-08-13 23:12 | ER ---
Nurse's Notes [facility] Name: Diana Watson Age: 43 yrs Sex: Female : 1975 Arrival Date: 08/13/2018 Time: 19:58 Bed 3 Private MD: Gabriel Neil V Diagnosis: Alcohol dependence with withdrawal, uncomplicated Presentation: 08/13 20:08 Presenting complaint: Patient states: N/V/D today with chest pressure and leg pain. aj Patient states, "I don't do meth but it was in my system. I think someone is breaking into my house a putting it in my drinks." Patient presents to ER with large fountain drink, tolerating well. Reports drinking alcohol all day and drank a mixed drink in route. Transition of care: patient was not received from another setting of care. Onset of symptoms was August 13, 2018. Risk Assessment: Do you want to hurt yourself or someone else? Patient reports no desire to harm self or others. Initial Sepsis Screen: Does the patient meet any 2 criteria? No. Patient's initial sepsis screen is negative. Does the patient have a suspected source of infection? No. Patient's initial sepsis screen is negative. Care prior to arrival: None. 20:08 Method Of Arrival: Ambulatory aj 20:08 Acuity: HUAN 2 aj Triage Assessment: 20:10 General: Appears in no apparent distress. uncomfortable, Behavior is calm, cooperative, aj appropriate for age. General: Smells of alcohol. Pain: Complains of pain in chest, right arm, left arm and right leg. Neuro: Level of Consciousness is awake, alert, obeys commands, Oriented to person, place, time, situation, Appropriate for age. Cardiovascular: Reports chest pain, Capillary refill < 3 seconds. Respiratory: Airway is patent Respiratory effort is even, unlabored, Respiratory pattern is regular, symmetrical. Derm: Skin is intact, is healthy with good turgor, Skin is pink, warm \\T\\ dry. normal. 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 - Social history:: Smoking status: Patient uses tobacco products, denies chronic smoking, but will smoke occasionally, Patient uses Patient uses alcohol, on a daily basis. - Ebola Screening: : Patient negative for fever greater than or equal to 101.5 degrees Fahrenheit, and additional compatible Ebola Virus Disease symptoms Patient denies exposure to infectious person Patient denies travel to an Ebola-affected area in the 21 days before illness onset No symptoms or risks identified at this time. Screenin:03 Abuse screen: Denies threats or abuse. Nutritional screening: No deficits noted. ea Tuberculosis screening: No symptoms or risk factors identified. Fall Risk Assessment: 21:01 General: Appears in no apparent distress. Behavior is appropriate for age. Pain: ea Complains of pain in abdomen Pain radiates to chest Pain currently is 10 out of 10 on a pain scale. Quality of pain is described as aching, Pain began 1 day ago. Neuro: Level of Consciousness is awake, alert, obeys commands, Oriented to person, place, time, situation. Cardiovascular: Patient's skin is warm and dry. Respiratory: Airway is patent Respiratory effort is even, unlabored, Respiratory pattern is regular, symmetrical. GI: Abdomen is non-distended, Bowel sounds present X 4 quads. : Parent/caregiver report the patient having burning with urination urinary frequency. 22:00 Reassessment: Patient and/or family updated on plan of care and expected duration. Pain ea level reassessed. Patient is alert, oriented x 3, equal unlabored respirations, skin warm/dry/pink. 23:50 Reassessment: Patient and/or family updated on plan of care and expected duration. Pain ea level reassessed. Patient is alert, oriented x 3, equal unlabored respirations, skin warm/dry/pink. Patient states feeling better. Patient states symptoms have improved. 08/14 00:00 Reassessment: Patient and/or family updated on plan of care and expected duration. Pain ea level reassessed. Patient is alert, oriented x 3, equal unlabored respirations, skin warm/dry/pink. Pt complaining of chest pain, provider notified. 00:40 Reassessment: Pt resting with eyes closed. Respirations even and unlabored. Chest ea expansions even and symmetrical. Awaiting on troponin results. 01:30 Reassessment: Patient and/or family updated on plan of care and expected duration. Pain ea level reassessed. Pt resting with eyes closed, respirations even and unlabored. Chest expansions even and symmetrical. 02:31 Reassessment: Patient and/or family updated on plan of care and expected duration. Pain ea level reassessed. Patient is alert, oriented x 3, equal unlabored respirations, skin warm/dry/pink. Discharge instruction given to patient, verbalized the understanding of isntruction Patient states symptoms have improved. Vital Signs: 08/13 20:12 BP 205 / 137; Pulse 137; Resp 20; Temp 98.9; Pulse Ox 100% on R/A; Weight 65.77 kg; aj Height 5 ft. 8 in. (172.72 cm); 21:45 BP 158 / 100; Pulse 106; Resp 20; Pulse Ox 100% on R/A; ea 22:00 BP 156 / 96; Pulse 98; Resp 18; Pulse Ox 99% on R/A; ea 23:15 BP 136 / 98; Pulse 102; Resp 18; Pulse Ox 99% ; ea 08/14 00:18 BP 145 / 92; Pulse 110; Resp 16 S; Pulse Ox 100% ; ea 01:08 BP 138 / 98; Pulse 98; Resp 18; Pulse Ox 100% on R/A; ea 01:55 BP 145 / 98; Pulse 85; Resp 19; Pulse Ox 96% on R/A; ea 02:08 BP 130 / 92; Pulse 95; Resp 19; Pulse Ox 99% on R/A; ea 08/13 20:12 Body Mass Index 22.05 (65.77 kg, 172.72 cm) aj ED Course: 08/13 19:58 Patient arrived in ED. am2 19:58 Gabriel Neil MD is Private Physician. am2 20:03 Emanuel Calvo MD is Attending Physician. ps1 20:09 Triage completed. aj 20:12 Arm band placed on left wrist. Patient placed in an exam room. aj 20:35 Inserted saline lock: 22 gauge in right antecubital area, using aseptic technique. ea Blood collected. 21:03 Patient has correct armband on for positive identification. Bed in low position. Call ea light in reach. Side rails up X 1. court recording monitor on. 21:03 Patient maintains SpO2 saturation greater than 95% on room air. ea 21:04 Angelica Velasquez, RN is Primary Nurse. ea 23:11 Gabriel Neil MD is Referral Physician. ps1 08/14 01:50 No provider procedures requiring assistance completed. ea 02:00 IV discontinued, intact, bleeding controlled, No redness/swelling at site. Pressure ea dressing applied. Administered Medications: 08/13 20:54 Drug: NS 0.9% 1000 ml Route: IV; Rate: 1 bolus; Site: right antecubital; ea 23:30 Follow up: Response: No adverse reaction; IV Status: Completed infusion; IV Intake: ea 1000ml 20:54 Drug: Magnesium Sulfate 2 grams Route: IVPB; Infused Over: 2 hrs; Site: right ea antecubital; 23:00 Follow up: Response: No adverse reaction; IV Status: Completed infusion ea 21:55 Drug: Ativan 2 mg Route: IVP; Site: right antecubital; ea 22:40 Follow up: Response: No adverse reaction; Marked relief of symptoms ea 23:42 Drug: Valium 5 mg Route: PO; ea 08/14 00:30 Follow up: Response: No adverse reaction ea Intake: 08/13 23:30 IV: 1000ml; Total: 1000ml. ea Outcome: 23:11 Discharge ordered by . ps1 08/14 02:33 Discharged to lobby awaiting on ride ea Condition: improved Discharge instructions given to patient, Instructed on discharge instructions, follow up and referral plans. medication usage, Demonstrated understanding of instructions, follow-up care, medications, Prescriptions given X 1. 02:34 Patient left the ED. ea Signatures: Gale Dietz RN RN aj Moreno, Amanda am2 Angelica Velasquez RN RN ea Singer, Phillip, MD MD ps1 Corrections: (The following items were deleted from the chart) 08/13 20:13 20:08 Presenting complaint: Patient states: N/V/D today with chest pressure and leg aj pain. Patient states, "I don't do meth but it was in my system. I think someone is breaking into my house a putting it in my drinks." Patient presents to ER with large fountain drink, tolerating well aj
[2018-08-13] MEDS ORDERED: DIAZEPAM 5 MG TABLET ONE (23:50)
--- NOTE | 2018-08-14 02:36 | EDPHYS ---
Physician Documentation [facility] Name: Diana Watson Age: 43 yrs Sex: Female : 1975 Arrival Date: 08/13/2018 Time: 19:58 Bed 3 Private MD: Gabriel Neil V ED Physician Emanuel Calvo HPI: 08/14 01:47 This 43 yrs old Female presents to ER via Ambulatory with complaints of Chest ps1 Pain > 30 y/o, Abdominal Pain, High Blood Pressure. 01:47 patient recently had a a month ago and now c/o RUQ pain. Had taco soup last ps1 night. Pain with palpation to RUQ. Pain rated as moderate. NO n/v/d. No fever. . 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 - Social history:: Smoking status: Patient uses tobacco products, denies chronic smoking, but will smoke occasionally, Patient uses Patient uses alcohol, on a daily basis. - Ebola Screening: : Patient negative for fever greater than or equal to 101.5 degrees Fahrenheit, and additional compatible Ebola Virus Disease symptoms Patient denies exposure to infectious person Patient denies travel to an Ebola-affected area in the 21 days before illness onset No symptoms or risks identified at this time. ROS: 08/14 01:47 Constitutional: Negative for fever, chills, and weight loss, Eyes: Negative for injury, ps1 pain, redness, and discharge, Cardiovascular: Negative for chest pain, palpitations, and edema, Respiratory: Negative for shortness of breath, cough, wheezing, and pleuritic chest pain, Back: Negative for injury and pain, MS/Extremity: Negative for injury and deformity, Skin: Negative for injury, rash, and discoloration, Neuro: Negative for headache, weakness, numbness, tingling, and seizure. Abdomen/GI: Positive for abdominal pain. Exam: 01:47 Constitutional: This is a well developed, well nourished patient who is awake, alert, ps1 and in no acute distress. Head/Face: Normocephalic, atraumatic. Chest/axilla: Normal chest wall appearance and motion. Nontender with no deformity. No lesions are appreciated. Cardiovascular: Regular rate and rhythm. No gallops, murmurs, or rubs. Normal PMI, no JVD. No pulse deficits. Respiratory: Lungs have equal breath sounds bilaterally, clear to auscultation and percussion. No rales, rhonchi or wheezes noted. No increased work of breathing, no retractions or nasal flaring. Skin: Warm, dry with normal turgor. Normal color with no rashes, no lesions, and no evidence of cellulitis. MS/ Extremity: Pulses equal, no cyanosis. Neurovascular intact. Full, normal range of motion. Neuro: Awake and alert, GCS 15, oriented to person, place, time, and situation. Cranial nerves II-XII grossly intact. Sensory grossly intact. 01:47 Abdomen/GI: Inspection: abdomen appears normal, Bowel sounds: normal, Palpation: mild abdominal tenderness, in the right upper quadrant. Vital Signs: 08/13 20:12 BP 205 / 137; Pulse 137; Resp 20; Temp 98.9; Pulse Ox 100% on R/A; Weight 65.77 kg; aj Height 5 ft. 8 in. (172.72 cm); 21:45 BP 158 / 100; Pulse 106; Resp 20; Pulse Ox 100% on R/A; ea 22:00 BP 156 / 96; Pulse 98; Resp 18; Pulse Ox 99% on R/A; ea 23:15 BP 136 / 98; Pulse 102; Resp 18; Pulse Ox 99% ; ea 08/14 00:18 BP 145 / 92; Pulse 110; Resp 16 S; Pulse Ox 100% ; ea 01:08 BP 138 / 98; Pulse 98; Resp 18; Pulse Ox 100% on R/A; ea 01:55 BP 145 / 98; Pulse 85; Resp 19; Pulse Ox 96% on R/A; ea 02:08 BP 130 / 92; Pulse 95; Resp 19; Pulse Ox 99% on R/A; ea 08/13 20:12 Body Mass Index 22.05 (65.77 kg, 172.72 cm) aj MDM: 08/13 20:25 Patient medically screened. [facility] 08/13 20:25 Order name: Acetaminophen [facility] 08/13 20:25 Order name: CBC with Diff [facility] 08/13 20:25 Order name: ETOH Level ps1 08/13 20:25 Order name: Salicylate [facility] 08/13 20:25 Order name: Urine Drug Screen [facility] 08/13 20:25 Order name: CMP [facility] 08/13 20:26 Order name: Lipase [facility] 08/13 21:11 Order name: Alcohol Serum/Plasma; Complete Time: 21:27 EDMS 08/13 21:23 Order name: Comprehensive Metabolic Panel; Complete Time: 21:27 EDMS 08/13 21:23 Order name: Acetaminophen Level; Complete Time: 21:27 EDMS 08/13 21:23 Order name: Lipase; Complete Time: 21:27 EDMS 08/13 21:37 Order name: Urine Drug Screen; Complete Time: 21:46 EDMS 08/13 21:38 Order name: Urine Dipstick--Ancillary (enter results) 08/13 21:38 Order name: Test, Serum 08/13 20:25 Order name: EKG; Complete Time: 20:27 [facility] 08/13 20:25 Order name: EKG - Nurse/Tech; Complete Time: 20:27 [facility] 08/13 20:25 Order name: IV Saline Lock; Complete Time: 20:44 [facility] 08/13 20:25 Order name: Labs collected and sent; Complete Time: 20:52 [facility] 08/13 20:25 Order name: Urine Dipstick-Ancillary (obtain specimen); Complete Time: 21:17 [facility] 08/13 21:45 Order name: Urine Dipstick-Ancillary; Complete Time: 21:46 EDMS 08/13 21:48 Order name: CBC with Automated Diff; Complete Time: 22:05 EDMS 08/13 21:54 Order name: Salicylates Level; Complete Time: 22:05 EDMO 08/13 21:56 Order name: Test Serum, [place]; Complete Time: 22:05 EDMS 08/14 00:27 Order name: Troponin (emerg Dept Use Only) [facility] 08/14 01:11 Order name: Troponin (Emerg Dept Use Only); Complete Time: 01:25 EDMO Administered Medications: 20:54 Drug: NS 0.9% 1000 ml Route: IV; Rate: 1 bolus; Site: right antecubital; ea 23:30 Follow up: Response: No adverse reaction; IV Status: Completed infusion; IV Intake: ea 1000ml 20:54 Drug: Magnesium Sulfate 2 grams Route: IVPB; Infused Over: 2 hrs; Site: right ea antecubital; 23:00 Follow up: Response: No adverse reaction; IV Status: Completed infusion ea 21:55 Drug: Ativan 2 mg Route: IVP; Site: right antecubital; ea 22:40 Follow up: Response: No adverse reaction; Marked relief of symptoms ea 23:42 Drug: Valium 5 mg Route: PO; ea 08/14 00:30 Follow up: Response: No adverse reaction ea Disposition: 08/13/18 23:11 Discharged to Home. Impression: Alcohol dependence with withdrawal, uncomplicated. - Condition is Stable. - Discharge Instructions: Alcohol Withdrawal. - Prescriptions for chlordiazepoxide HCl 10 mg Oral capsule - take 1 capsule by ORAL route 3 times per day; 20 capsule. - Medication Reconciliation Form, Thank You Letter, Antibiotic Education, Prescription Opioid Use form. - Follow up: Gabriel Neil MD; When: As needed; Reason: Further diagnostic work-up, Recheck today's complaints, Continuance of care, Re-evaluation by your physician. Follow up: Emergency Department; When: As needed; Reason: Worsening of condition. - Problem is an ongoing problem. - Symptoms have improved. Signatures: Dispatcher [employer] EDMO Gale Dietz RN RN aj Antunez, Elena, RN RN ea Singer, Phillip, MD MD ps1 Corrections: (The following items were deleted from the chart) 02:34 08/13 23:11 08/13/2018 23:11 Discharged to Home. Impression: Alcohol dependence with ea withdrawal, uncomplicated. Condition is Stable. Forms are Medication Reconciliation Form, Thank You Letter, Antibiotic Education, Prescription Opioid Use. Follow up: Gabriel Neil; When: As needed; Reason: Further diagnostic work-up, Recheck today's complaints, Continuance of care, Re-evaluation by your physician. Follow up: Emergency Department; When: As needed; Reason: Worsening of condition. Problem is an ongoing problem. Symptoms have improved. ps1
[2018-08-14 04:04] VITALS: TEMP 98.9
[2018-08-14 04:13] VITALS: BP 130/92; O2SAT 99
--- NOTE | 2018-08-14 11:44 | EKG ---
Test Date: 2018-08-14 Test Time: 01:29:37 Heating And Ventilation Engineer: TIFFANIE MEASUREMENT RESULTS: Intervals: Rate: 89 NV: 140 QRSD: 82 QT: 396 QTc: 481 [place]: P: 49 NV: 140 QRS: 66 T: 73 INTERPRETIVE STATEMENTS: Normal sinus rhythm Minimal voltage criteria for LVH, may be normal variant Prolonged QT Abnormal ECG Compared to ECG 08/13/2018 20:09:20 Prolonged QT interval now present Sinus tachycardia no longer present Atrial abnormality no longer present ST (T wave) deviation no longer present Electronically Signed On 08-14-18 11:42:47 LABEL REMOVER by Demond Henry
--- NOTE | 2018-08-14 11:46 | EKG ---
Test Date: 2018-08-13 Test Time: 20:09:20 Hoistman: REX MEASUREMENT RESULTS: Intervals: Rate: 126 LA: 148 QRSD: 76 QT: 418 QTc: 605 [place]: P: 69 LA: 148 QRS: 46 T: 78 INTERPRETIVE STATEMENTS: Sinus tachycardia Biatrial enlargement Left ventricular hypertrophy Nonspecific ST and T wave abnormality Abnormal ECG Compared to ECG 06/09/2018 16:23:31 Atrial abnormality now present Left ventricular hypertrophy now present ST (T wave) deviation now present Electronically Signed On 08-14-18 11:42:59 REVIEW ASSISTANT by Demond Henry
== END 2018-08-14 02:34 | disposition home or self-care (01) ==
LOC: ER 19:56
DX: F10.239 Alcohol dependence with withdrawal, unspecified (principal); Z88.1 Allergy status to other antibiotic agents; I10 Essential (primary) hypertension; K25.9 Gastric ulcer, unspecified as acute or chronic, without hemorrhage or perforation; Z72.0 Tobacco use
CPT/HCPCS: 36415; 80053; 80307; 80320; 80329; 81003; 83690; 84484; 84703; 85025; 93005; J3475; J7030

== ENCOUNTER 2018-10-12 07:10 | Inpatient (IN) | payer OTHER ==
[2018-10-12 08:00] LABS: Barbiturates NEGATIVE (NEGATIVE); Benzodiazepines NEGATIVE (NEGATIVE); Cocaine NEGATIVE (NEGATIVE); METHAMPHETAM NEGATIVE (NEGATIVE); Methadone NEGATIVE (NEGATIVE); Opiates NEGATIVE (NEGATIVE); Phencyclidine NEGATIVE (NEGATIVE); THC Cannibis NEGATIVE (NEGATIVE)
[2018-10-12 08:05] LABS: Absolute Lymphocytes (CBC) 0.6 K/uL (0.7-4.9); Absolute Monocytes 0.4 K/uL (0.1-1.3); Absolute Neutrophil 1.9 K/uL (1.8-8.0); Basophils % 0.7 % (0-1.3); Eosinophils % 0.2 % (0-4.4); Hematocrit 35.5 % (36.0-45.0); Lymphocytes % 21.8 % (15.3-44.8); MPV 8.5 fL (7.6-11.3); Monocytes % 11.8 % (3.3-12.3)
[2018-10-12] MEDS ORDERED: ONDANSETRON 4 MG/2 ML VIAL ONE (08:11)
[2018-10-12] MEDS ORDERED: NA CHLORIDE 0.9% 1,000 ML ONE ×2 (08:11→09:10)
[2018-10-12 08:14] LABS: Protime INR 1.1
[2018-10-12 08:32] LABS: Urine Blood NEGATIVE (NEG); Urine Glucose NEGATIVE (NEG); Urine Protein TRACE (NEG); Urine pH 5.5 (5.0-7.0)
--- NOTE | 2018-10-12 08:44 | RAD REPORT ---
EXAM DESCRIPTION: RAD - Chest Single View - 10/12/2018 8:34 am CLINICAL HISTORY: CHEST PAIN Chest pain. COMPARISON: Chest Single View dated 06/06/2018; Chest Single View dated 01/06/2018; Chest Single View dated 05/31/2017; Chest Single View dated 02/12/2017 FINDINGS: Portable technique limits examination quality. The lungs are grossly clear. The heart is normal in size. No displaced fractures. IMPRESSION: No acute intrathoracic process suspected.
[2018-10-12 08:47] LABS: ALT/SGPT 73 U/L (12-78); AST/SGOT 147 U/L (15-37); Albumin 3.8 g/dL (3.4-5.0); Alkaline Phosphatase 71 U/L (45-117); BUN Blood Urea Nitrogen 3 mg/dL (7-18); Bicarbonate 22 mmol/L (21-32); Bilirubin Direct 0.5 mg/dL (0-0.2); Bilirubin Total 0.8 mg/dL (0.2-1.0); Glucose Level 108 mg/dL (74-106); Protein, Total 7.4 g/dL (6.4-8.2); Sodium Level 136 mmol/L (136-145); Troponin (Emerg Dept Use Only) < 0.02 ng/mL (0.0-0.045)
[2018-10-12 08:49] LABS: Potassium 2.3 mmol/L (3.5-5.1)
[2018-10-12] MEDS ORDERED: FOLIC ACID 1 MG, THIAMINE HCL 100 MG, MULTIVITAMINS INJ 10 ML in NA CHLORIDE 0.9% 1,000 ML IV ONE (09:00)
[2018-10-12] MEDS ORDERED: LORazepam 2 MG/ML VIAL ONE (09:09)
[2018-10-12] MEDS ORDERED: KCL 20 MEQ/100 mL IVPB 20 MEQ/100 ML BAG IV ONE (09:10)
[2018-10-12] MEDS ORDERED: POTASSIUM 25 MEQ EFFERV TAB ONE (09:10)
[2018-10-12 09:33] LABS: Urine White Blood Cell Casts OK
[2018-10-12 09:34] LABS: Anisocytosis 1+; Blood Morphology Comment NOTED (NOT SEEN); Platelet Estimate DECR
[2018-10-12 09:35] LABS: Macrocytosis SLIGHT
--- NOTE | 2018-10-12 09:35 | RAD REPORT ---
EXAM DESCRIPTION: CTAbdomen Pelvis W Contrast - 10/12/2018 9:15 am CLINICAL HISTORY: Abdominal pain. ABD PAIN COMPARISON: Abdomen Pelvis W Contrast dated 01/06/2018; CT ABD PELVIS W CONTRAST dated 04/10/2015 TECHNIQUE: Biphasic CT imaging of the abdomen and pelvis was performed with 100 ml non-ionic IV cont rast. All CT scans are performed using dose optimization technique as appropriate and may include automated exposure control or mA/KV adjustment according to patient size. FINDINGS: The lung bases are clear.Cholecystectomy. The liver demonstrates diffuse fatty infiltration. The spleen, pancreas, adrenal glands and kidneys a re within normal limits. No bowel obstruction, free air, free fluid or abscess. Appendectomy. No evidence of significant lym phadenopathy. No suspicious bony findings. IMPRESSION: No acute intra-abdominal or pelvic finding. Fatty liver.
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
--- NOTE | 2018-10-12 09:54 | EDPHYS ---
Physician Documentation [facility] Name: Diana Watson Age: 43 yrs Sex: Female : 1975 Arrival Date: 10/12/2018 Time: 07:12 Bed 7 Private MD: ED Physician Charles Kruger HPI: 10/12 08:00 This 43 yrs old Female presents to ER via EMS with complaints of Abdominal pm1 Pain, Chest Pain, Anxiety. 08:00 The patient presents with abdominal pain. Onset: The symptoms/episode began/occurred pm1 yesterday. The symptoms do not radiate. Associated signs and symptoms: Pertinent positives: nausea, vomiting, and diarrhea, chest pain, Pertinent negatives: constipation, dysuria, fever, shortness of breath. The symptoms are described as crampy. Modifying factors: The symptoms are alleviated by nothing, the symptoms are aggravated by nothing. Severity of pain: in the emergency department the pain is actually worse. The patient has experienced similar episodes in the past, multiple times. The patient has not recently seen a physician, the patient's primary care provider is Dr. Neil. Patient with complaints of upper abdominal pain, chest pain, anxiety, n/v/d. Patient with a history of alcoholism and drinks 1 pint of rum daily. Patient last drank a sip of her alcohol this AM 1 hour prior to arrival. Patient drank rum last night around 2100. SANITATION LEAD: 07:00 LMP having uterine oblation rr5 Historical: - Allergies: 07:00 Ancef (rash); rr5 - Home Meds: 07:00 lovastatin 40 mg Oral tab 1 tab once daily [Active]; metoprolol 100 mg one tab once rr5 daily [Active]; phenergen suppository, unknown dose PRN [Active]; Ondansetron Oral as needed [Active]; Omeprazole Oral [Active]; Prilosec Oral [Active]; - PMHx: 07:00 Alcoholism; Hypertension; Ulcers; Anxiety; rr5 - PSHx: 07:00 Cholecystectomy; rr5 - Immunization history:: Adult Immunizations up to date. - Social history:: Smoking status: Patient uses tobacco products, denies chronic smoking, but will smoke occasionally, Patient uses alcohol, on a daily basis. Patient/guardian denies using street drugs. - Ebola Screening: : Patient negative for fever greater than or equal to 101.5 degrees Fahrenheit, and additional compatible Ebola Virus Disease symptoms Patient denies exposure to infectious person Patient denies travel to an Ebola-affected area in the 21 days before illness onset. ROS: 07:31 Constitutional: Negative for fever, chills, and weight loss, Eyes: Negative for injury, pm1 pain, redness, and discharge, ENT: Negative for injury, pain, and discharge, Neck: Negative for injury, pain, and swelling. 07:31 Respiratory: Negative for shortness of breath, cough, wheezing, and pleuritic chest pain. 07:31 Back: Negative for injury and pain, : Negative for injury, bleeding, discharge, and swelling, MS/Extremity: Negative for injury and deformity, Skin: Negative for injury, rash, and discoloration, Neuro: Negative for headache, weakness, numbness, tingling, and seizure. 07:31 Cardiovascular: Positive for chest pain, Negative for edema, orthopnea, palpitations. 07:31 Abdomen/GI: Positive for abdominal pain, nausea, vomiting, and diarrhea, of the right upper quadrant and left upper quadrant, Negative for hematemesis, black/tarry stool, rectal bleeding. 07:31 Psych: Positive for anxiety, depression, Negative for auditory hallucinations, visual hallucinations, homicidal ideation, suicide gesture, suicidal ideation. Exam: 08:00 Constitutional: This is a well developed, well nourished patient who is awake, alert, pm1 and in no acute distress. Head/Face: Normocephalic, atraumatic. Eyes: Pupils equal round and reactive to light, extra-ocular motions intact. Lids and lashes normal. Conjunctiva and sclera are non-icteric and not injected. Cornea within normal limits. Periorbital areas with no swelling, redness, or edema. Neck: Trachea midline, no thyromegaly or masses palpated, and no cervical lymphadenopathy. Supple, full range of motion without nuchal rigidity, or vertebral point tenderness. No Meningismus. Chest/axilla: Normal chest wall appearance and motion. Nontender with no deformity. No lesions are appreciated. Cardiovascular: Regular rate and rhythm with a normal S1 and S2. No gallops, murmurs, or rubs. Normal PMI, no JVD. No pulse deficits. 08:00 Respiratory: Lungs have equal breath sounds bilaterally, clear to auscultation and percussion. No rales, rhonchi or wheezes noted. No increased work of breathing, no retractions or nasal flaring. 08:00 Back: No spinal tenderness. No costovertebral tenderness. Full range of motion. Skin: Warm, dry with normal turgor. Normal color with no rashes, no lesions, and no evidence of cellulitis. MS/ Extremity: Pulses equal, no cyanosis. Neurovascular intact. Full, normal range of motion. 08:00 ENT: External ear(s): are unremarkable, Ear canal(s): are normal, Nose: is normal, no drainage, no edema, no erythema, Mouth: is normal, no drooling, no injury, no lesion(s), (-) tongue elevation (-) trismus no ulcerations, tongue fasciculations. 08:00 Abdomen/GI: Inspection: abdomen appears normal, Bowel sounds: normal, in all quadrants, Palpation: soft, mild abdominal tenderness, in the right upper quadrant and left upper quadrant, mass, is not appreciated, rebound tenderness, is not appreciated. 08:00 Neuro: Orientation: is normal, to person, place, time, situation, Motor: is normal, moves all fours, Sensation: is normal, no obvious gross deficits, seizure activity, is not displayed by the patient, Abnormal movements: bilateral upper extremity tremors. Vital Signs: 07:00 BP 168 / 107; Pulse 121; Resp 20; Temp 98.4; Pulse Ox 100% ; Weight 72.57 kg; Height 5 rr5 ft. 8 in. (172.72 cm); Pain 10/10; 08:15 BP 139 / 93; Pulse 112; Resp 18; Pulse Ox 100% ; bp 08:38 BP 142 / 87; Pulse 111; Resp 19; Pulse Ox 100% on R/A; dh3 09:24 BP 146 / 79; Pulse 126; Resp 20; Pulse Ox 100% ; bp 11:12 BP 140 / 89; Pulse 132; Resp 16; Pulse Ox 96% on R/A; Pain 7/10; ch 07:00 Body Mass Index 24.33 (72.57 kg, 172.72 cm) rr5 Procedures: 13:50 Suture/Staple removal: Removed 4 alfredo, from right occipital area, site appears well pm1 healed, Patient tolerated well. MDM: 07:12 Patient medically screened. pm1 07:33 Data reviewed: vital signs. pm1 09:45 Counseling: I had a detailed discussion with the patient and/or guardian regarding: the pm1 historical points, exam findings, and any diagnostic results supporting the discharge/admit diagnosis, lab results, radiology results, the need for further work-up and treatment in the hospital. 09:52 Physician consultation: Gabriel Neil MD was called at 09:52, was contacted at 09:52, pm1 regarding admission, patient's condition, and will see patient. 13:00 Physician consultation: Gabriel Neil MD would like medications started, Lorazepam 2 mg pm1 IV Q4H hold for sedation, banana bag once daily, propranolol 20 mg PO BID, and social consult. 10/12 07:19 Order name: Acetaminophen; Complete Time: 08:51 pm1 10/12 07:19 Order name: Basic Metabolic Panel; Complete Time: 08:51 pm1 10/12 07:19 Order name: CBC with Diff; Complete Time: 09:40 pm1 10/12 07:19 Order name: ETOH Level; Complete Time: 08:25 pm1 10/12 07:19 Order name: Hepatic Function; Complete Time: 08:51 pm1 10/12 07:19 Order name: PT-INR; Complete Time: 08:51 pm1 10/12 07:19 Order name: Ptt, Activated; Complete Time: 08:51 pm10/12 07:19 Order name: Salicylate; Complete Time: 08:25 pm1 10/12 07:19 Order name: Urine Drug Screen; Complete Time: 08:00 pm1 10/12 07:19 Order name: Troponin (emerg Dept Use Only); Complete Time: 08:51 pm10/12 07:51 Order name: Urine Dipstick--Ancillary (enter results); Complete Time: 08:33 kj1 10/12 07:53 Order name: Urine --Ancillary (enter results); Complete Time: 08:33 kj1 10/12 08:27 Order name: CBC Smear Scan; Complete Time: 09:40 EDMS 10/12 08:35 Order name: Lipase; Complete Time: 09:01 pm1 10/12 07:19 Order name: Urine Test (obtain specimen); Complete Time: 07:46 pm1 10/12 07:19 Order name: EKG; Complete Time: 07:20 pm1 10/12 07:19 Order name: EKG - Nurse/Tech; Complete Time: 08:13 pm1 10/12 07:19 Order name: IV Saline Lock; Complete Time: 08:14 pm1 10/12 07:19 Order name: Labs collected and sent; Complete Time: 08:14 pm1 10/12 07:19 Order name: Chest Single View XRAY; Complete Time: 08:51 pm1 10/12 08:56 Order name: CT Abd/Pelvis - W/Contrast: IV contrast only; Complete Time: 09:40 pm1 10/12 09:46 Order name: Magnesium; Complete Time: 10:36 pm1 10/12 07:19 Order name: Urine Dipstick-Ancillary (obtain specimen); Complete Time: 07:46 pm1 Administered Medications: 07:55 Drug: NS 0.9% 1000 ml Route: IV; Rate: 1000 ml; Site: right wrist; bp 09:00 Follow up: IV Status: Completed infusion; IV Intake: 1000ml ch 07:55 Drug: Zofran 4 mg Route: IVP; Site: right wrist; bp 08:44 Follow up: Response: Nausea is decreased bp 09:00 Drug: Banana Bag - (NS 0.9% 1000 ml, foLIC Acid 1 mg, Thiamine 100 mg, Multivitamin 1 bp amp) Route: IV; Rate: calculated rate; Site: right wrist; 12:01 Follow up: IV Status: Completed infusion; IV Intake: 1000ml ch 09:00 Drug: Ativan 2 mg Route: IVP; Site: right wrist; bp 10:39 Follow up: Response: No adverse reaction; Anxiety decreased bp 12:01 Follow up: Response: No adverse reaction; Marked relief of symptoms ch 09:00 Drug: Potassium Chloride 20 mEq Route: IV; Rate: calculated rate; Site: right wrist; bp 12:01 Follow up: IV Status: Completed infusion; IV Intake: 100ml ch 12:01 Follow up: IV Status: Completed infusion; IV Intake: 100ml ch 09:00 Drug: Potassium Effervescent Tablet 50 mEq Route: PO; bp 10:40 Follow up: Response: No adverse reaction bp 12:00 Follow up: Response: No adverse reaction; Marked relief of symptoms ch 11:26 Drug: Magnesium Sulfate 2 grams Route: IVPB; Infused Over: 2 hrs; Site: left hand; bp 12:57 Follow up: IV Status: Completed infusion; IV Intake: 100ml bp 11:26 Drug: Pepcid 20 mg Route: IVP; Site: left hand; bp 12:00 Follow up: Response: No adverse reaction; Marked relief of symptoms ch Disposition: 13:25 Co-signature as Attending Physician, Charles Kruger MD I agree with the assessment and kdr plan of care. Disposition: 10/12/18 09:53 Hospitalization ordered by Gabriel Neil for Inpatient Admission. Preliminary diagnosis are Alcohol dependence with withdrawal, Hypokalemia, Hypomagnesemia. - Bed requested for Telemetry/MedSurg (Inpatient). - Status is Inpatient Admission. ss - Condition is Stable. - Problem is new. - Symptoms have improved. UTI on Admission? No Signatures: Dispatcher [employer] EDMS Charles Kruger MD MD [facility] Kyleigh Ashford RN RN Fredrick Cabrera, LIONEL ANALYTICS MANAGER pm1 Arvin Licea RN RN Nirmal Merchant RN RN rr5 Sarah Holder kj1 Rosanne Ahumada RN Corrections: (The following items were deleted from the chart) 10:37 09:53 Hospitalization Ordered by Gabriel Neil MD for Inpatient Admission. Preliminary pm1 diagnosis is Alcohol dependence with withdrawalHypokalemia. Bed requested for Telemetry/MedSurg (Inpatient). Status is Inpatient Admission. Condition is Stable. Problem is new. Symptoms have improved. UTI on Admission? No. pm1 12:13 10:37 10/12/2018 09:53 Hospitalization Ordered by Gabriel Neil MD for Inpatient kj1 Admission. Preliminary diagnosis is Alcohol dependence with withdrawalHypokalemia; Hypomagnesemia. Bed requested for Telemetry/MedSurg (Inpatient). Status is Inpatient Admission. Condition is Stable. Problem is new. Symptoms have improved. UTI on Admission? No. pm1 13:19 12:13 10/12/2018 09:53 Hospitalization Ordered by Gabriel Neil MD for Inpatient ss Admission. Preliminary diagnosis is Alcohol dependence with withdrawalHypokalemia; Hypomagnesemia. Bed requested for Telemetry/MedSurg (Inpatient). Status is Inpatient Admission. Condition is Stable. Problem is new. Symptoms have improved. UTI on Admission? No. kj1
--- NOTE | 2018-10-12 10:44 | EKG ---
Test Date: 2018-10-12 Test Time: 08:00:01 [employer] Developer: MAT/T MEASUREMENT RESULTS: Intervals: Rate: 112 DE: 154 QRSD: 90 QT: 380 QTc: 518 [place]: P: 68 DE: 154 QRS: 71 T: 75 INTERPRETIVE STATEMENTS: Sinus tachycardia Left ventricular hypertrophy with repolarization abnormality Abnormal ECG Compared to ECG 08/14/2018 01:29:37 Early repolarization now present Sinus rhythm no longer present Prolonged QT interval no longer present Electronically Signed On 10-12-18 10:43:22 CDT by Demond Henry
[2018-10-12] MEDS ORDERED: Magnesium Sulfate 2gm IVPB 2 G/50 ML BAG IV ONE (10:56)
[2018-10-12] MEDS ORDERED: NA CHLORIDE 0.9% 100 ML IV ONE (11:28)
[2018-10-12] MEDS ORDERED: FAMOTIDINE 20 MG/2 ML VIAL IV ONE (11:29)
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
[2018-10-12] MEDS ORDERED: ONDANSETRON 4 MG/2 ML VIAL IV PRN (14:49)
[2018-10-12] MEDS: LORazepam 2 MG/ML VIAL IV SCH ×3 (14:49→21:41)
[2018-10-12 18:21] VITALS: BMI 21.5
[2018-10-12 20:30] LABS: Magnesium 1.7 mg/dL (1.8-2.4); Potassium 2.9 mmol/L (3.5-5.1)
[2018-10-12] MEDS ORDERED: KCL 20 MEQ/100 mL IVPB 20 MEQ/100 ML BAG IV SCH (21:00)
[2018-10-12] MEDS ORDERED: MAGNESIUM SULFATE 1 gm IVPB 1 GM/100 ML BAG IV ONE ×2 (21:00→21:30)
[2018-10-12] MEDS: PROPRANOLOL HCL 10 MG TAB PO SCH (21:46)
[2018-10-12] MEDS: KCL 20 MEQ/100 mL IVPB 20 MEQ/100 ML BAG IV SCH (22:00)
[2018-10-13] MEDS: KCL 20 MEQ/100 mL IVPB 20 MEQ/100 ML BAG IV SCH ×2 (01:01→04:39)
[2018-10-13] MEDS: LORazepam 2 MG/ML VIAL IV SCH ×6 (03:16→23:08)
[2018-10-13 06:03] LABS: Absolute Monocytes 0.3 K/uL (0.1-1.3); Basophils % 1.1 % (0-1.3); Eosinophils % 1.9 % (0-4.4); Hematocrit 28.3 % (36.0-45.0); MPV 8.9 fL (7.6-11.3); Monocytes % 12.4 % (3.3-12.3); RBC Red Blood Cell Count 3.01 M/uL (3.86-4.86)
[2018-10-13 06:04] LABS: BUN Blood Urea Nitrogen 2 mg/dL (7-18); Bicarbonate 30 mmol/L (21-32); Glucose Level 91 mg/dL (74-106); Potassium 3.2 mmol/L (3.5-5.1); Sodium Level 141 mmol/L (136-145)
[2018-10-13] MEDS: FOLIC ACID 1 MG, MULTIVITAMINS INJ 10 ML, THIAMINE HCL 100 MG in NA CHLORIDE 0.9% 1,000 ML IV SCH (09:25)
[2018-10-13] MEDS: PROPRANOLOL HCL 10 MG TAB PO SCH (11:03)
[2018-10-13] MEDS ORDERED: SUMATRIPTAN SUCCI 50 MG TAB PO PRN (12:16)
--- NOTE | 2018-10-13 12:26 | P.PN ---
Subjective Date of Service: 10/13/18 Chief Complaint: CHEST PAIN, NAUSEA, VOMITING, DIARRHEA Subjective: Improving SHE IS MORE AWAKE, ABLE TO EAT. SHE WAS TRYING TO POUR COFFEE RESTING THE MUG ON THE UNEVEN BED AND ALMOST TOPPLED IT UNTIL I PICKED IT UP AND PUT ON THE TABLE. SHE HAS ALL EXCUSES TO GO BUY MORE RUM AND DRINK A PINT A DAY. HER MOTHER IS DEMENTED, LIVING WITH HER, HE MARRIAGE HAS FALLEN APART ETC. Review of Systems 10-point ROS is otherwise unremarkable General: Weakness, Malaise Neurological: Weakness (LEGS SINCE SHE DRINKS HEAVY.) Physical Examination - Vital Signs Temperature: 98.6 F Blood Pressure: 133/84 Pulse: 94 Respirations: 16 Pulse Ox (%): 100 - Physical Exam General: Alert, Mild distress, Moderate distress HEENT: Atraumatic, PERRLA, EOMI Neck: Supple, JVD not distended Respiratory: Clear to auscultation bilaterally, Normal air movement Cardiovascular: Regular rate/rhythm, Normal S1 S2 Gastrointestinal: Normal bowel sounds, No tenderness Musculoskeletal: No tenderness Integumentary: No rashes Neurological: Normal speech, Normal tone, Normal affect, Abnormal strength ( WASTED LEGS, POWER REDUCED, CO-ORDINATION POOR.) Lymphatics: No axilla or inguinal lymphadenopathy Other Physical/Emotional Findings: ANXIOUS, DEPRESSED, NOT ABLE TO TAKE CARE OF HERSELF AND NOT WANTING ANY HELP. - Studies Medications List Reviewed: Yes Assessment And Plan - Current Problems (Diagnosis) (1) Chest pain Onset Date: 11/07/14 Current Visit: No Status: Acute Plan: CE NEGATIVE. SHE HAS CHEST PAIN WHENEVER SHE COMES HERE. SHE HAS BEEN TO [employer] EX[employer]IST[employer]NA[employer]. (2) Heavy alcohol use Onset Date: 04/17/18 Current Visit: No Status: Chronic Plan: HELP IS OFFERED BEFORE AND SHE HAS DENIED. SHE GOES HOME AND DRINKS HEAVY AGAIN. ADVISED TO GET HELP AGAIN. SHE IS REFUSING. (3) Hypokalemia Onset Date: 04/11/15 Current Visit: No Status: Acute Plan: REPLACE K. IV AND DAILY CHECK. (4) Hypomagnesemia Onset Date: 06/01/17 Current Visit: No Status: Acute Plan: THIS IS ALL FROM HEAVY ALCOHOL USE. (5) Viral gastroenteritis Current Visit: Yes Status: Acute Plan: IV FLUIDS. CHECK FLU TEST. SUPPORTIVE THERAPY. (6) Pain in the abdomen Current Visit: Yes Status: Acute Plan: SHE MAY HAVE PUD FROM HEAVY ALCOHOL USE. START PROTONIX IV. 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 SHE HAS BEEN TO NEUROLOGLISTS BUT UNTIL SHE QUITS ALCOHOL THIS WILL KEEP ON GETTING WORSE.
[2018-10-13] MEDS ORDERED: POTASSIUM CL SA 10 MEQ TAB PO ONE (18:00)
[2018-10-13] MEDS: METOPROLOL XL 100 MG TAB PO SCH (21:51)
[2018-10-13] MEDS: PREGABALIN 50 MG CAP PO SCH (21:51)
[2018-10-14] MEDS: LORazepam 2 MG/ML VIAL IV SCH ×4 (04:00→14:49)
[2018-10-14 05:46] LABS: Urine Appearance CLEAR; Urine Bilirubin NEGATIVE (NEG); Urine Blood NEGATIVE (NEG); Urine Color YELLOW; Urine Glucose NEGATIVE (NEG); Urine Protein NEGATIVE (NEG); Urine Specific Gravity <=1.005 (1.005-1.030)
[2018-10-14 05:52] LABS: Urine Microscopic Reflex NO UMIC
[2018-10-14 06:40] LABS: BUN Blood Urea Nitrogen 3 mg/dL (7-18); Bicarbonate 29 mmol/L (21-32); Glucose Level 90 mg/dL (74-106); Magnesium 1.7 mg/dL (1.8-2.4); Potassium 3.7 mmol/L (3.5-5.1); Sodium Level 139 mmol/L (136-145)
[2018-10-14] MEDS: METOPROLOL XL 100 MG TAB PO SCH (08:58)
[2018-10-14] MEDS: PREGABALIN 50 MG CAP PO SCH (08:58)
[2018-10-14] MEDS: FOLIC ACID 1 MG, MULTIVITAMINS INJ 10 ML, THIAMINE HCL 100 MG in NA CHLORIDE 0.9% 1,000 ML IV SCH (08:59)
[2018-10-14] MEDS ORDERED: MAGNESIUM SULFATE 1 gm IVPB 1 GM/100 ML BAG IV ONE (09:00)
[2018-10-14] MEDS ORDERED: DULOXETINE 30 MG CAP PO SCH (09:00)
[2018-10-14] MEDS ORDERED: POTASSIUM CL SA 10 MEQ TAB PO ONE (09:00)
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
[2018-10-14 14:58] VITALS: O2SAT 98
[2018-10-14 20:19] VITALS: BP 140/84; TEMP 98.3
== END 2018-10-14 20:33 | disposition home or self-care (01) | DRG 313 ==
LOC: ER 07:10 → ERHOLD 11:25 → 2ND 12:53
PROVIDERS: ADMIT Internal Medicine; ATTEND Internal Medicine
DX: R07.9 Chest pain, unspecified (principal); F10.230 Alcohol dependence with withdrawal, uncomplicated; D61.818 Other pancytopenia; E87.6 Hypokalemia; E83.42 Hypomagnesemia; A08.4 Viral intestinal infection, unspecified; G60.2 Neuropathy in association with hereditary ataxia; I10 Essential (primary) hypertension; F41.9 Anxiety disorder, unspecified; F32.9 Major depressive disorder, single episode, unspecified
CPT/HCPCS: 36415; 71045; 74177; 80048; 80076; 80307; 80320; 80329; 81003; 81025; 83690; 83735; 84132; 84484; 85025; 85610; 85730; 93005; 97162; 99285; J2405; J3411; J3475; J7030; Q9967

== ENCOUNTER 2019-03-01 14:49 | Inpatient (IN) | payer OTHER ==
--- OUTSIDE RECORDS SUMMARY | 2019-03-01 14:51 | XMS REPORT ---
:1975 [facility] Address [address] [place] [address] Care Team Providers Name Role Phone Unavailable Unavailable Unavailable Payers Payer Name Policy Type Policy Number Effective Date Expiration Date Problems This patient has no known problems. Allergies, Adverse Reactions, Alerts Allergy Allergy Status Severity Reaction(s) Onset Inactive Treating Comments Name Type Date Date Clinician cefazolin RENE Active MO 2019-01 00:00:0 0 Medications This patient has no known medications. Results Test Description Test Time Test Comments Text Results Atomic Results Result Comments BASIC METABOLIC PANEL 2019-01-25 12:36:00 Test Item Value Reference Range Comments SODIUM (test code=NA) 138 mmol/L 136-145 POTASSIUM (test code=K) 3.3 mmol/L 3.5-5.1 CHLORIDE (test code=CL) 101.0 mmol/L 98-107 CARBON DIOXIDE (test code=CO2) 29.0 mmol/L 21-32 ANION GAP (test code=GAP) 11.3 10-20 GLUCOSE (test code=GLU) 72 mg/dL 74-106 BLOOD UREA NITROGEN (test 8 mg/dL 7-18 code=BUN) GLOMERULAR FILTRATION RATE (test > 60 mL/min >=60 Estimated GFR by using code=GFR) Modified MDRD formula.Chronic kidney disease is defined as either kidney damageor GFR <60 mL/min/1.73 m2 for >3 months. CREATININE (test code=CREAT) 0.60 mg/dL 0.55-1.02 Note change in reference range due to change in reagent. BUN/CREATININE RATIO (test 13.9 10-20 code=BUN/CREA) CALCIUM (test code=CA) 9.1 mg/dL 8.5-10.1 BASIC METABOLIC [id number] 12:30:00 Test Item Value Reference Range Comments SODIUM (test code=NA) 138 mmol/L 136-145 POTASSIUM (test code=K) 3.3 mmol/L 3.5-5.1 CHLORIDE (test code=CL) 101.0 mmol/L 98-107 CARBON DIOXIDE (test code=CO2) mmol/L 21-32 ANION GAP (test code=GAP) 10-20 GLUCOSE (test code=GLU) mg/dL 74-106 BLOOD UREA NITROGEN (test code=BUN) mg/dL 7-18 GLOMERULAR FILTRATION RATE (test code=GFR) mL/min >=60 CREATININE (test code=CREAT) mg/dL 0.55-1.02 BUN/CREATININE RATIO (test code=BUN/CREA) 10-20 CALCIUM (test code=CA) 9.1 mg/dL 8.5-10.1 URINE HCG TRIAGE (ER ONLY)2019-01-24 13:47:00 Test Item Value Reference Range Comments URINE HCG TRIAGE (ER ONLY) (test code=HCGTRIAGE) Negative SPECIMEN COMMENTS: URINECOMMENTS TO DIRECT SELLING COUNSELOR: URINE TESTUrine Test Result: NEGATIVEAre internal controls (presence of a control line & clear background) OK? YLot # of HCG Test Kit: [id number] Date of Kit: 06/23/2020Test Performed by: Marlene Perfomed on: CHEMISTRY 8 [id number] 13:46:00 Test Item Value Reference Range Comments ISTAT-SODIUM (test code=NAP) mmol/L 135-148 ISTAT-POTASSIUM (test code=KP) mmol/L 3.5-5.5 ISTAT-CHLORIDE (test code=CLP) mmol/L 101-109 ISTAT CARBON DIOXIDE (test code=ISTAT-CO2) mmol/L 21-32 ISTAT CALCIUM IONIZED (test code=ISTAT-GEMA) mg/dL 1.12-1.32 ISTAT-ANION GAP (test code=GAPP) MEQ/L 10-20 ISTAT-GLUCOSE (test code=GLUP) mg/dL 74-106 ISTAT-BUN (test code=BUNP) mg/dL 3-21 BEDSIDE CREATININE (test code=CREATBED) mg/dL 0.7-1.3 GLOMERULAR FILTRATION RATE POC (test code=GFRBED) 134 >60 CHEMISTRY 8 [id number] 13:46:00 Test Item Value Reference Range Comments ISTAT-SODIUM (test code=NAP) 135 mmol/L 135-148 ISTAT-POTASSIUM (test code=KP) 2.6 mmol/L 3.5-5.5 ISTAT-CHLORIDE (test code=CLP) 95 mmol/L 101-109 ISTAT CARBON DIOXIDE (test code=ISTAT-CO2) 27.0 mmol/L 21-32 ISTAT CALCIUM IONIZED (test code=ISTAT-GEMA) 1.08 mg/dL 1.12-1.32 ISTAT-ANION GAP (test code=GAPP) 16.0 MEQ/L 10-20 ISTAT-GLUCOSE (test code=GLUP) 85 mg/dL 74-106 ISTAT-BUN (test code=BUNP) < 3 mg/dL 3-21 BEDSIDE CREATININE (test code=CREATBED) 0.5 mg/dL 0.7-1.3 GLOMERULAR FILTRATION RATE POC (test 134 >60 code=GFRBED) POC LACTIC [id number] 13:40:00 Test Item Value Reference Range Comments POC LACTIC ACID (test code=POCLAC) 0.94 MMOL/L 0.4-2.2 URINALYSIS [id number] 02:02:00 Test Item Value Reference Range Comments UA COLOR (test code=COLU) YELLOW YELLOW UA APPEARANCE (test code=APPU) CLEAR CLEAR UA GLUCOSE DIPSTICK (test code=DGLUU) NEGATIVE mg/dL NEGATIVE UA BILIRUBIN DIPSTICK (test code=BILU) NEGATIVE mg/dL NEGATIVE UA KETONE DIPSTICK (test code=KETU) TRACE mg/dL NEGATIVE UA SPECIFIC GRAVITY (test code=SGU) 1.012 1.001-1.035 UA BLOOD DIPSTICK (test code=BEN) Negative mg/dL NEGATIVE UA PH DIPSTICK (test code=MAT) 6.5 5.0-8.0 UA PROTEIN DIPSTICK (test code=PROU) NEGATIVE mg/dL NEGATIVE UA UROBILINIOGEN DIPSTICK (test code=URO) 2.0 (1+) mg/dL NEGATIVE UA NITRITE DIPSTICK (test code=PO) NEGATIVE NEGATIVE UA LEUKOCYTE ESTERASE W REFLEX (test NEGATIVE Carina/uL NEGATIVE code=LEUUR) UA WBC (test code=WBCU) 0-5 per HPF 0-5 UA RBC (test code=RBCU) 0-2 #/HPF 0-5 UA EPITHELIAL CELLS (test code=EPIU) FEW per HPF FEW UA BACTERIA (test code=BACU) NONE SEEN #/HPF NONE UA MUCUS (test code=MUCU) FEW #/LPF FEW Urine Source? Clean CatchBASIC METABOLIC [id number] 01:55:00 Test Item Value Reference Range Comments SODIUM (test code=NA) 135 mmol/L 136-145 POTASSIUM (test code=K) 3.1 mmol/L 3.5-5.1 CHLORIDE (test code=CL) 97.0 mmol/L 98-107 CARBON DIOXIDE (test 26.0 mmol/L 21-32 code=CO2) ANION GAP (test code=GAP) 15.1 10-20 GLUCOSE (test code=GLU) 82 mg/dL 74-106 BLOOD UREA NITROGEN (test 4 mg/dL 7-18 code=BUN) GLOMERULAR FILTRATION RATE > 60 mL/min >=60 Estimated GFR by using (test code=GFR) Modified MDRD formula.Chronic kidney disease is defined as either kidney damageor GFR <60 mL/min/1.73 m2 for >3 months. CREATININE (test code=CREAT) 0.40 mg/dL 0.55-1.02 Note change in reference range due to change in reagent. BUN/CREATININE RATIO (test 10.0 10-20 code=BUN/CREA) CALCIUM (test code=CA) 7.7 mg/dL 8.5-10.1 HEPATIC FUNCTION [id number] 01:55:00 Test Item Value Reference Range Comments TOTAL PROTEIN (test code=PROT) 6.1 gram/dL 6.4-8.2 ALBUMIN (test code=ALB) 2.9 g/dL 3.4-5.0 GLOBULIN (test code=GLOB) 3.2 gram/dL 2.7-4.2 ALBUMIN/GLOBULIN RATIO (test 0.9 0.75-1.50 code=A/G) BILIRUBIN TOTAL (test 1.10 mg/dL 0.0-1.0 code=BILT) BILIRUBIN DIRECT (test 0.38 mg/dL 0.0-0.20 code=BILD) SGOT/AST (test code=AST) 85 IUnit/L 15-37 SGPT/ALT (test code=ALT) 35 IUnit/L 12-78 ALKALINE PHOSPHATASE TOTAL 69 IUnit/L 45-117 Note change in reference (test code=ALKP) range due to change in reagent. [id number] 01:55:00 Test Item Value Reference Range Comments LIPASE (test code=LIP) 123 U/L 73.0-393.0 HCG SERUM [id number] 01:55:00 Test Item Value Reference Range Comments HCG SERUM QUAL (test NEGATIVE NEGATIVE This HCGQL test is NOT code=HCGQL) applicable for MALE patients.Check with nurse about probable order error.If Tumor Marker Test needed, nurse should order test "HCGTU"(Test #550.91117) -- BASIC METABOLIC [id number] 01:48:00 Test Item Value Reference Range Comments SODIUM (test code=NA) 135 mmol/L 136-145 POTASSIUM (test code=K) 3.1 mmol/L 3.5-5.1 CHLORIDE (test code=CL) 97.0 mmol/L 98-107 CARBON DIOXIDE (test code=CO2) mmol/L 21-32 ANION GAP (test code=GAP) 10-20 GLUCOSE (test code=GLU) mg/dL 74-106 BLOOD UREA NITROGEN (test code=BUN) mg/dL 7-18 GLOMERULAR FILTRATION RATE (test code=GFR) mL/min >=60 CREATININE (test code=CREAT) mg/dL 0.55-1.02 BUN/CREATININE RATIO (test code=BUN/CREA) 10-20 CALCIUM (test code=CA) mg/dL 8.5-10.1 HEPATIC FUNCTION [id number] 01:48:00 Test Item Value Reference Range Comments TOTAL PROTEIN (test code=PROT) gram/dL 6.4-8.2 ALBUMIN (test code=ALB) g/dL 3.4-5.0 GLOBULIN (test code=GLOB) gram/dL 2.7-4.2 ALBUMIN/GLOBULIN RATIO (test code=A/G) 0.75-1.50 BILIRUBIN TOTAL (test code=BILT) mg/dL 0.0-1.0 BILIRUBIN DIRECT (test code=BILD) mg/dL 0.0-0.20 SGOT/AST (test code=AST) IUnit/L 15-37 SGPT/ALT (test code=ALT) IUnit/L 12-78 ALKALINE PHOSPHATASE TOTAL (test code=ALKP) IUnit/L 45-117 [id number] 01:48:00 Test Item Value Reference Range Comments LIPASE (test code=LIP) U/L 73.0-393.0 HCG SERUM [id number] 01:48:00 Test Item Value Reference Range Comments HCG SERUM QUAL (test NEGATIVE NEGATIVE This HCGQL test is NOT code=HCGQL) applicable for MALE patients.Check with nurse about probable order error.If Tumor Marker Test needed, nurse should order test "HCGTU"(Test #550.09891) -- [id number] 01:48:00 Test Item Value Reference Range Comments MAGNESIUM (test code=MAG) 1.7 mg/dL 1.8-2.4 BASIC METABOLIC [id number] 01:41:00 Test Item Value Reference Range Comments SODIUM (test code=NA) mmol/L 136-145 POTASSIUM (test code=K) mmol/L 3.5-5.1 CHLORIDE (test code=CL) mmol/L 98-107 CARBON DIOXIDE (test code=CO2) mmol/L 21-32 ANION GAP (test code=GAP) 10-20 GLUCOSE (test code=GLU) mg/dL 74-106 BLOOD UREA NITROGEN (test code=BUN) mg/dL 7-18 GLOMERULAR FILTRATION RATE (test code=GFR) mL/min >=60 CREATININE (test code=CREAT) mg/dL 0.55-1.02 BUN/CREATININE RATIO (test code=BUN/CREA) 10-20 CALCIUM (test code=CA) mg/dL 8.5-10.1 HEPATIC FUNCTION [id number] 01:41:00 Test Item Value Reference Range Comments TOTAL PROTEIN (test code=PROT) gram/dL 6.4-8.2 ALBUMIN (test code=ALB) g/dL 3.4-5.0 GLOBULIN (test code=GLOB) gram/dL 2.7-4.2 ALBUMIN/GLOBULIN RATIO (test code=A/G) 0.75-1.50 BILIRUBIN TOTAL (test code=BILT) mg/dL 0.0-1.0 BILIRUBIN DIRECT (test code=BILD) mg/dL 0.0-0.20 SGOT/AST (test code=AST) IUnit/L 15-37 SGPT/ALT (test code=ALT) IUnit/L 12-78 ALKALINE PHOSPHATASE TOTAL (test code=ALKP) IUnit/L 45-117 [id number] 01:41:00 Test Item Value Reference Range Comments LIPASE (test code=LIP) U/L 73.0-393.0 HCG SERUM [id number] 01:41:00 Test Item Value Reference Range Comments HCG SERUM QUAL (test NEGATIVE NEGATIVE This HCGQL test is NOT code=HCGQL) applicable for MALE patients.Check with nurse about probable order error.If Tumor Marker Test needed, nurse should order test "HCGTU"(Test #550.49300) -- CBC W/O [id number] 01:37:00 Test Item Value Reference Range Comments WHITE BLOOD CELL (test code=WBC) 5.2 K/mm3 4.5-12.5 RED BLOOD CELL (test code=RBC) 3.67 mill/mm3 3.7-5.2 HEMOGLOBIN (test code=HGB) 9.4 gram/dL 11.5-15.5 HEMATOCRIT (test code=HCT) 29.6 % 36.0-46.0 MEAN CELL VOLUME (test code=MCV) 80.7 fL 80-98 MEAN CELL HGB (test code=MCH) 25.6 picogram 27.0-33.0 MEAN CELL HGB CONCETRATION (test code=MCHC) 31.8 gram/dL 33.0-36.0 RED CELL DISTRIBUTION WIDTH (test code=RDW) 23.4 % 11.6-16.2 PLATELET COUNT (test code=PLT) 153 K/mm3 150-450 MEAN PLATELET VOLUME (test code=MPV) 9.9 fL 6.7-11.0
[2019-03-01] MEDS ORDERED: LORazepam 2 MG/ML VIAL ONE ×2 (15:51→20:06)
[2019-03-01] MEDS ORDERED: NA CHLORIDE 0.9% 1,000 ML ONE ×2 (15:51→17:06)
[2019-03-01 16:10] LABS: Barbiturates NEGATIVE (NEGATIVE); Benzodiazepines NEGATIVE (NEGATIVE); Cocaine NEGATIVE (NEGATIVE); METHAMPHETAM NEGATIVE (NEGATIVE); Methadone NEGATIVE (NEGATIVE); Opiates NEGATIVE (NEGATIVE); Phencyclidine NEGATIVE (NEGATIVE); THC Cannibis NEGATIVE (NEGATIVE)
[2019-03-01 16:18] LABS: Absolute Lymphocytes (CBC) 1.2 K/uL (0.7-4.9); Basophils % 1.4 % (0-1.3); Lymphocytes % 28.3 % (15.3-44.8); MPV 8.3 fL (7.6-11.3); RBC Red Blood Cell Count 3.74 M/uL (3.86-4.86)
[2019-03-01 16:19] LABS: Protime INR 1.02
--- NOTE | 2019-03-01 16:25 | EKG ---
Test Date: 2019-03-01 Test Time: 14:52:55 Jointer Machine Operator: MAT MEASUREMENT RESULTS: Intervals: Rate: 103 GA: 158 QRSD: 86 QT: 384 QTc: 503 [place]: P: 52 GA: 158 QRS: 18 T: 41 INTERPRETIVE STATEMENTS: Sinus tachycardia Possible Left atrial enlargement Borderline ECG Compared to ECG 10/12/2018 08:00:01 Left ventricular hypertrophy no longer present Early repolarization no longer present Electronically Signed On 03-01-19 16:25:13 CDT by Demond Henry
--- NOTE | 2019-03-01 16:41 | RAD REPORT ---
EXAM DESCRIPTION: RAD - Chest Single View - 03/01/2019 4:09 pm CLINICAL HISTORY: Chest pain COMPARISON: September 2018 TECHNIQUE: AP portable chest image was obtained 1605 hours . FINDINGS: Lungs are clear. Heart and vasculature are normal. No measurable pleural effusion and no p neumothorax. No acute bony abnormality seen. No acute aortic findings suspected. IMPRESSION: No acute cardiopulmonary process. No significant change from comparison.
[2019-03-01 16:42] LABS: Anisocytosis 3+; Blood Morphology Comment NOTED (NOT SEEN); Platelet Estimate ADEQ; Stomatocytes 1+; Target Cells FEW; Urine White Blood Cell Casts OK
[2019-03-01 16:45] LABS: ALT/SGPT 36 U/L (12-78); AST/SGOT 78 U/L (15-37); Albumin 2.9 g/dL (3.4-5.0); Alkaline Phosphatase 100 U/L (45-117); BUN Blood Urea Nitrogen 4 mg/dL (7-18); Bicarbonate 25 mmol/L (21-32); Bilirubin Direct 0.4 mg/dL (0-0.2); Bilirubin Total 1.2 mg/dL (0.2-1.0); Glucose Level 72 mg/dL (74-106); Magnesium 1.6 mg/dL (1.8-2.4); NT PRO-BNP 647 pg/mL (<125); Protein, Total 6.6 g/dL (6.4-8.2); Sodium Level 134 mmol/L (136-145); Troponin (Emerg Dept Use Only) < 0.02 ng/mL (0.0-0.045)
[2019-03-01 16:54] LABS: Potassium 2.7 mmol/L (3.5-5.1)
[2019-03-01 16:59] LABS: Urine Blood NEGATIVE (NEG); Urine Glucose NEGATIVE (NEG); Urine Protein NEGATIVE (NEG); Urine Specific Gravity <1.005 (1.005-1.030)
[2019-03-01] MEDS ORDERED: MAGNESIUM SULFATE 1 gm IVPB 1 GM/100 ML BAG IV ONE (17:01)
[2019-03-01] MEDS ORDERED: KCL 20 MEQ/100 mL IVPB 20 MEQ/100 ML BAG IV ONE (17:01)
[2019-03-01] MEDS ORDERED: POTASSIUM CL SA 10 MEQ TAB PO ONE (17:01)
[2019-03-01] MEDS ORDERED: LABETALOL HCL 100 MG/20 ML ONE (17:59)
[2019-03-01] MEDS ORDERED: FOLIC ACID 1 MG, MULTIVITAMINS INJ 10 ML, THIAMINE HCL 100 MG in NA CHLORIDE 0.9% 1,000 ML IV ONE (18:00)
--- NOTE | 2019-03-01 19:42 | ER ---
Nurse's Notes [facility] Name: Diana Watson Age: 43 yrs Sex: Female : 1975 Arrival Date: 03/01/2019 Time: 14:50 Bed 14 Private MD: Diagnosis: Chest pain, unspecified;Alcohol dependence with alcohol-induced anxiety disorder;Hypokalemia;Hypomagnesemia Presentation: 03/01 14:51 Presenting complaint: Patient states: Reports chest pain that started last night with aj increased anxiety including numbness and tingling to hands and feet. Transition of care: patient was not received from another setting of care. Onset of symptoms was February 28, 2019. Risk Assessment: Do you want to hurt yourself or someone else? Patient reports no desire to harm self or others. Initial Sepsis Screen: Does the patient meet any 2 criteria? No. Patient's initial sepsis screen is negative. Does the patient have a suspected source of infection? No. Patient's initial sepsis screen is negative. 14:51 Method Of Arrival: [facility]: [facility] 14:51 Acuity: HUAN 2 aj 14:57 Care prior to arrival: Medication(s) given: ASA, 81 mg, x 4, Nitroglycerin, 0.4 mg SL x aj 1, IV initiated. 20 GA, in the right wrist. Triage Assessment: 14:54 General: Appears in no apparent distress. comfortable, Behavior is cooperative, aj anxious. Pain: Complains of pain in chest. Neuro: Level of Consciousness is awake, alert, obeys commands, Oriented to person, place, time, situation, Appropriate for age. Cardiovascular: Reports chest pain, Capillary refill < 3 seconds in bilateral fingers Patient's skin is warm and dry. Respiratory: Airway is patent Respiratory effort is even, unlabored, Respiratory pattern is regular, symmetrical. Derm: Skin is intact, is healthy with good turgor, Skin is pink, warm \T\ dry. normal. Historical: - Allergies: 14:54 Ancef (rash); aj - Home Meds: 14:54 lovastatin 40 mg Oral tab 1 tab once daily [Active]; metoprolol 100 mg one tab once aj daily [Active]; Omeprazole Oral [Active]; Ondansetron Oral as needed [Active]; phenergen suppository, unknown dose PRN [Active]; Prilosec Oral [Active]; - PMHx: 14:54 Alcoholism; Anxiety; Hypertension; Ulcers; aj - PSHx: 14:54 Cholecystectomy; aj - Immunization history:: Adult Immunizations up to date. - Social history:: Smoking status: Patient/guardian denies using tobacco, Patient uses alcohol, on a daily basis. - Ebola Screening: : Patient negative for fever greater than or equal to 101.5 degrees Fahrenheit, and additional compatible Ebola Virus Disease symptoms Patient denies exposure to infectious person Patient denies travel to an Ebola-affected area in the 21 days before illness onset No symptoms or risks identified at this time. Screenin:30 Fall Risk None identified. tr5 19:30 Abuse screen: Denies threats or abuse. Nutritional screening: No deficits noted. tr5 Tuberculosis screening: No symptoms or risk factors identified. Assessment: 16:22 Reassessment: Patient appears in no apparent distress at this time. No changes from previously documented assessment. Patient and/or family updated on plan of care and expected duration. Pain level reassessed. Patient is alert, oriented x 3, equal unlabored respirations, skin warm/dry/pink. 19:00 Reassessment: Patient and/or family updated on plan of care and expected duration. Pain tr5 level reassessed. Patient is alert, oriented x 3, equal unlabored respirations, skin warm/dry/pink. General: Behavior is anxious. Pain: Pain does not radiate. Pain began 2-3 days ago. 19:57 Reassessment: Pt laying in bed resting. tr5 21:00 Reassessment: Patient and/or family updated on plan of care and expected duration. Pain tr5 level reassessed. Patient is alert, oriented x 3, equal unlabored respirations, skin warm/dry/pink. Patient states feeling better. 22:00 Reassessment: Patient and/or family updated on plan of care and expected duration. Pain tr5 level reassessed. Patient is alert, oriented x 3, equal unlabored respirations, skin warm/dry/pink. 23:00 Reassessment: Patient and/or family updated on plan of care and expected duration. Pain tr5 level reassessed. Patient is alert, oriented x 3, equal unlabored respirations, skin warm/dry/pink. 03/02 00:00 Reassessment: Patient and/or family updated on plan of care and expected duration. Pain tr5 level reassessed. Patient is alert, oriented x 3, equal unlabored respirations, skin warm/dry/pink. 07:02 Reassessment: PT ON ER HOLD, SEE [facility]. bp Vital Signs: 03/01 14:53 BP 162 / 98; Pulse 105; Resp 17; Temp 98.7(O); Pulse Ox 100% ; lt1 16:22 BP 157 / 98; Pulse 101; Resp 14; Pulse Ox 100% on R/A; aj 17:25 BP 152 / 107; Pulse 93; Resp 18; Pulse Ox 100% ; bp 18:37 BP 151 / 96; Pulse 95; Resp 14; Pulse Ox 100% on R/A; aj 19:57 BP 143 / 89; Pulse 100; Resp 17; Pulse Ox 100% on R/A; tr5 22:06 BP 145 / 78; Pulse 96; Resp 20; Pulse Ox 97% on R/A; tr5 23:00 BP 145 / 95; Pulse 99; Resp 20; Pulse Ox 100% on R/A; oe 03/02 00:00 BP 146 / 101; Pulse 91; Resp 19; Pulse Ox 100% on R/A; oe 01:00 BP 139 / 90; Pulse 100; Resp 20; Pulse Ox 100% on R/A; oe ED Course: 03/01 14:50 Patient arrived in ED. aj 14:52 Triage completed. aj 14:54 Arm band placed on right wrist. Patient placed in an exam room, on a stretcher. EKG aj completed in triage. Results shown to MD. 14:56 Gale Dietz, RN is Primary Nurse. aj 15:29 Mehdi Cotter PA is PHCP. jr8 15:29 Charles Kruger MD is Attending Physician. jr8 15:54 EKG done, by truck service technician. reviewed by Mehdi BOLTON. Urine collected: clean catch jb1 specimen, cloudy, josue colored. 16:11 XRAY Chest (1 view) In Process Unspecified. EDMS 19:30 Placed in gown. Bed in low position. Call light in reach. Pulse ox on. NIBP on. tr5 19:30 Door closed. Noise minimized. Warm blanket given. tr5 19:40 Gabriel Neil MD is Hospitalizing Provider. jr8 23:00 Patient requests food. tr5 03/02 00:00 Awaiting bed assignment. tr5 01:00 No provider procedures requiring assistance completed. Patient admitted, IV remains in tr5 place. Patient maintains SpO2 saturation greater than 95% on room air. Administered Medications: 03/01 15:45 CANCELLED (Duplicate Order): Aspirin Chewable Tablet 324 mg PO once; 81 mg tablets x 4 aj 16:03 Drug: NS 0.9% 1000 ml Route: IV; Rate: 1000 ml; Site: right wrist; aj 16:03 Drug: Ativan 0.5 mg Route: IVP; Site: right wrist; aj 18:37 Follow up: Response: No adverse reaction aj 17:11 Drug: Potassium Chloride 40 mEq Route: PO; aj 20:12 Follow up: Response: No adverse reaction tr5 17:11 Drug: Potassium Chloride 20 mEq Route: IV; Rate: calculated rate; Site: right wrist; aj 18:36 Follow up: Response: No adverse reaction; IV Status: Completed infusion; IV Intake: 50mlaj 17:12 Drug: Banana Bag - (NS 0.9% 1000 ml, foLIC Acid 1 mg, Thiamine 100 mg, Multivitamin 1 aj amp) Route: IV; Rate: calculated rate; Site: right wrist; 18:05 Drug: Labetalol 10 mg Route: IVP; Site: right wrist; aj 20:11 Follow up: Response: No adverse reaction; Marked relief of symptoms tr5 18:36 Drug: Magnesium Sulfate 1 grams Route: IVPB; Infused Over: 1 hrs; Site: right wrist; aj 20:12 Drug: Ativan 1 mg Route: IVP; Site: right antecubital; tr5 21:00 Follow up: Response: No adverse reaction; Anxiety decreased tr5 Intake: 18:36 IV: 50ml; Total: 50ml. aj Outcome: 19:41 Decision to Hospitalize by Provider. jr8 03/02 01:00 Admitted to Med/surg accompanied by tech, via wheelchair, with chart. tr5 Condition: stable Discharge instructions given to Instructed on the need for admit. 18:27 Patient left the ED. iw Signatures: Dispatcher [employer] EDRodriguez Nevarez jb1 Gale Dietz RN RN aj Mercy Ferguson RN RN iw Mehdi Cotter PA PA jr8 Humberto Dunn Brian, RN RN Haylee Gomez lt1 Ivan Howard, RN RN tr5 Corrections: (The following items were deleted from the chart) 03/01 14:57 14:51 Care prior to arrival: None. aj aj 16:24 14:51 Acuity: HUAN 3 aj aj 20:00 18:30 Abuse screen: Denies threats or abuse. tr5 tr5 20:00 18:30 Nutritional screening: No deficits noted. tr5 tr5 20:00 18:30 Tuberculosis screening: No symptoms or risk factors identified. tr5 tr5
--- NOTE | 2019-03-01 19:43 | EDPHYS ---
Physician Documentation [facility] Name: Diana Watson Age: 43 yrs Sex: Female : 1975 Arrival Date: 03/01/2019 Time: 14:50 Bed 14 Private MD: ED Physician Charles Kruger HPI: 03/01 15:50 This 43 yrs old Female presents to ER via EMS with complaints of Anxiety, jr8 Chest Pain > 30 y/o. 15:50 Onset: The symptoms/episode began/occurred acutely, today. Associated signs and jr8 symptoms: The patient has no apparent associated signs or symptoms. Modifying factors: The patient symptoms are alleviated by nothing, the patient symptoms are aggravated by nothing. It is unknown whether or not the patient has had similar symptoms in the past. The patient has not recently seen a physician. Historical: - Allergies: 14:54 Ancef (rash); aj - Home Meds: 14:54 lovastatin 40 mg Oral tab 1 tab once daily [Active]; metoprolol 100 mg one tab once aj daily [Active]; Omeprazole Oral [Active]; Ondansetron Oral as needed [Active]; phenergen suppository, unknown dose PRN [Active]; Prilosec Oral [Active]; - PMHx: 14:54 Alcoholism; Anxiety; Hypertension; Ulcers; aj - PSHx: 14:54 Cholecystectomy; aj - Immunization history:: Adult Immunizations up to date. - Social history:: Smoking status: Patient/guardian denies using tobacco, Patient uses alcohol, on a daily basis. - Ebola Screening: : Patient negative for fever greater than or equal to 101.5 degrees Fahrenheit, and additional compatible Ebola Virus Disease symptoms Patient denies exposure to infectious person Patient denies travel to an Ebola-affected area in the 21 days before illness onset No symptoms or risks identified at this time. ROS: 15:50 Eyes: Negative for injury, pain, redness, and discharge, ENT: Negative for injury, jr8 pain, and discharge, Neck: Negative for injury, pain, and swelling, Respiratory: Negative for shortness of breath, cough, wheezing, and pleuritic chest pain, Abdomen/GI: Negative for abdominal pain, nausea, vomiting, diarrhea, and constipation, Back: Negative for injury and pain, MS/Extremity: Negative for injury and deformity, Skin: Negative for injury, rash, and discoloration, Neuro: Negative for headache, weakness, numbness, tingling, and seizure. 15:50 Cardiovascular: Positive for chest pain, Negative for edema, orthopnea, palpitations, paroxysmal nocturnal dyspnea. Exam: 15:50 Eyes: Pupils equal round and reactive to light, extra-ocular motions intact. Lids and jr8 lashes normal. Conjunctiva and sclera are non-icteric and not injected. Cornea within normal limits. Periorbital areas with no swelling, redness, or edema. ENT: Nares patent. No nasal discharge, no septal abnormalities noted. Tympanic membranes are normal and external auditory canals are clear. Oropharynx with no redness, swelling, or masses, exudates, or evidence of obstruction, uvula midline. Mucous membranes moist. Neck: Trachea midline, no thyromegaly or masses palpated, and no cervical lymphadenopathy. Supple, full range of motion without nuchal rigidity, or vertebral point tenderness. No Meningismus. Cardiovascular: Tachycardic with a normal S1 and S2. No gallops, murmurs, or rubs. Normal PMI, no JVD. No pulse deficits. Respiratory: Lungs have equal breath sounds bilaterally, clear to auscultation and percussion. No rales, rhonchi or wheezes noted. No increased work of breathing, no retractions or nasal flaring. Abdomen/GI: Soft, non-tender, with normal bowel sounds. No distension or tympany. No guarding or rebound. No evidence of tenderness throughout. Back: No spinal tenderness. No costovertebral tenderness. Full range of motion. Skin: Warm, dry with normal turgor. Normal color with no rashes, no lesions, and no evidence of cellulitis. MS/ Extremity: Pulses equal, no cyanosis. Neurovascular intact. Full, normal range of motion. Neuro: Awake and alert, GCS 15, oriented to person, place, time, and situation. Cranial nerves II-XII grossly intact. Motor strength 5/5 in all extremities. Sensory grossly intact. Cerebellar exam normal. Normal gait. 15:50 Constitutional: The patient appears alert, awake, anxious, uncomfortable, unkempt. Vital Signs: 14:53 BP 162 / 98; Pulse 105; Resp 17; Temp 98.7(O); Pulse Ox 100% ; lt1 16:22 BP 157 / 98; Pulse 101; Resp 14; Pulse Ox 100% on R/A; aj 17:25 BP 152 / 107; Pulse 93; Resp 18; Pulse Ox 100% ; bp 18:37 BP 151 / 96; Pulse 95; Resp 14; Pulse Ox 100% on R/A; aj 19:57 BP 143 / 89; Pulse 100; Resp 17; Pulse Ox 100% on R/A; tr5 22:06 BP 145 / 78; Pulse 96; Resp 20; Pulse Ox 97% on R/A; tr5 23:00 BP 145 / 95; Pulse 99; Resp 20; Pulse Ox 100% on R/A; oe 08 00:00 BP 146 / 101; Pulse 91; Resp 19; Pulse Ox 100% on R/A; oe 01:00 BP 139 / 90; Pulse 100; Resp 20; Pulse Ox 100% on R/A; oe MDM: 03/01 15:30 Patient medically screened. jr8 19:40 Data reviewed: vital signs, nurses notes, lab test result(s), EKG, radiologic studies, jr8 plain films. Data interpreted: Pulse oximetry: on room air is 100 %. Interpretation: normal. Counseling: I had a detailed discussion with the patient and/or guardian regarding: the historical points, exam findings, and any diagnostic results supporting the discharge/admit diagnosis, lab results, radiology results, the need for further work-up and treatment in the hospital. ED course: Called and left message to have Dr. Neil call us back . 03/01 15:41 Order name: Basic Metabolic Panel; Complete Time: 16:56 [facility] 03/01 15:41 Order name: CBC with Diff; Complete Time: 16:43 03/01 15:41 Order name: LFT's; Complete Time: 16:56 03/01 15:41 Order name: Magnesium; Complete Time: 16:56 03/01 15:41 Order name: NT PRO-BNP; Complete Time: 16:56 03/01 15:41 Order name: PT-INR; Complete Time: 16:28 03/01 15:41 Order name: Troponin (emerg Dept Use Only); Complete Time: 16:56 03/01 15:42 Order name: Urine Drug Screen; Complete Time: 16:13 03/01 15:42 Order name: ETOH Level; Complete Time: 16:46 8 03/01 16:22 Order name: CBC Smear Scan; Complete Time: 16:43 EDMS 03/01 16:34 Order name: Urine Dipstick--Ancillary (enter results); Complete Time: 17:14 ms 03/02 02:12 Order name: Troponin I; Complete Time: 10:10 EDMS 03/02 05:46 Order name: CBC with Automated Diff; Complete Time: 10:10 EDMS 03/02 06:04 Order name: Basic Metabolic Panel; Complete Time: 10:10 EDMS 03/01 15:41 Order name: XRAY Chest (1 view); Complete Time: 16:42 8 03/01 15:41 Order name: EKG; Complete Time: 15:42 8 03/01 15:41 Order name: Cardiac monitoring; Complete Time: 15:54 8 03/01 15:41 Order name: EKG - Nurse/Tech; Complete Time: 15:54 8 03/01 15:41 Order name: IV Saline Lock; Complete Time: 15:54 8 03/02 06:40 Order name: CBC Smear Scan; Complete Time: 10:10 EDMS 03/02 09:31 Order name: CT; Complete Time: 10:10 EDMS 03/01 15:41 Order name: Labs collected and sent; Complete Time: 16:07 8 03/01 15:41 Order name: O2 Per Protocol; Complete Time: 15:54 8 03/01 15:41 Order name: O2 Sat Monitoring; Complete Time: 15:54 8 03/01 15:42 Order name: Urine Dipstick-Ancillary (obtain specimen); Complete Time: 15:54 jr8 Administered Medications: 15:45 CANCELLED (Duplicate Order): Aspirin Chewable Tablet 324 mg PO once; 81 mg tablets x 4 aj 16:03 Drug: NS 0.9% 1000 ml Route: IV; Rate: 1000 ml; Site: right wrist; aj 16:03 Drug: Ativan 0.5 mg Route: IVP; Site: right wrist; aj 18:37 Follow up: Response: No adverse reaction aj 17:11 Drug: Potassium Chloride 40 mEq Route: PO; aj 20:12 Follow up: Response: No adverse reaction tr5 17:11 Drug: Potassium Chloride 20 mEq Route: IV; Rate: calculated rate; Site: right wrist; aj 18:36 Follow up: Response: No adverse reaction; IV Status: Completed infusion; IV Intake: 50mlaj 17:12 Drug: Banana Bag - (NS 0.9% 1000 ml, foLIC Acid 1 mg, Thiamine 100 mg, Multivitamin 1 aj amp) Route: IV; Rate: calculated rate; Site: right wrist; 18:05 Drug: Labetalol 10 mg Route: IVP; Site: right wrist; aj 20:11 Follow up: Response: No adverse reaction; Marked relief of symptoms tr5 18:36 Drug: Magnesium Sulfate 1 grams Route: IVPB; Infused Over: 1 hrs; Site: right wrist; aj 20:12 Drug: Ativan 1 mg Route: IVP; Site: right antecubital; tr5 21:00 Follow up: Response: No adverse reaction; Anxiety decreased tr5 Disposition: 03/01/19 19:41 Hospitalization ordered by Gabriel Neil for Observation. Preliminary diagnosis are Chest pain, unspecified, Alcohol dependence with alcohol-induced anxiety disorder, Hypokalemia, Hypomagnesemia. - Bed requested for Telemetry/MedSurg (observation). - Status is Observation. iw - Condition is Stable. - Problem is new. - Symptoms have improved. UTI on Admission? No Addendum: 03/05/2019 09:26 Co-signature as Attending Physician, Charles Kruger MD I agree with the assessment and k dr plan of care. Signatures: Dispatcher [employer] EDMS Gale Dietz RN RN aj Rittger, Kevin, MD MD [facility] Estela Araiza, [employer]-C [employer]-Tessyw Mercy Ferguson RN RN Jayesh Arceo em1 Mehdi Cotter PA PA jr8 Ivan Howard RN RN tr5 Corrections: (The following items were deleted from the chart) 03/01 15:45 15:41 Aspirin Chewable Tablet 324 mg PO once; 81 mg tablets x 4 ordered. jr8 aj 19:41 19:41 Hospitalization Ordered by Gabriel Neil MD for Observation. Preliminary diagnosis jr8 is Chest pain, unspecified; Alcohol dependence with alcohol-induced anxiety disorder. Bed requested for Telemetry/MedSurg (observation). Status is Observation. Condition is Stable. Problem is new. Symptoms have improved. UTI on Admission? No. jr8 23:27 19:41 03/01/2019 19:41 Hospitalization Ordered by Gabriel Neil MD for Observation. snw Preliminary diagnosis is Chest pain, unspecified; Alcohol dependence with alcohol-induced anxiety disorder; Hypokalemia; Hypomagnesemia. Bed requested for Telemetry/MedSurg (observation). Status is Observation. Condition is Stable. Problem is new. Symptoms have improved. UTI on Admission? No. jr8 03/02 14:43 03/01 23:27 03/01/2019 19:41 Hospitalization Ordered by Gabriel Neil MD for em1 Observation. Preliminary diagnosis is Chest pain, unspecified; Alcohol dependence with alcohol-induced anxiety disorder; Hypokalemia; Hypomagnesemia. Bed requested for [facility] ER HOLD. Status is Observation. Condition is Stable. Problem is new. Symptoms have improved. UTI on Admission? No. snw 03/02 18:27 14:43 03/01/2019 19:41 Hospitalization Ordered by Gabriel Neil MD for Observation. iw Preliminary diagnosis is Chest pain, unspecified; Alcohol dependence with alcohol-induced anxiety disorder; Hypokalemia; Hypomagnesemia. Bed requested for Telemetry/MedSurg (observation). Status is Observation. Condition is Stable. Problem is new. Symptoms have improved. UTI on Admission? No. em1
[2019-03-02] MEDS ORDERED: ONDANSETRON 4 MG/2 ML VIAL IV PRN (00:53)
[2019-03-02] MEDS ORDERED: chlordiazePOXIDE HCl 25 MG CAP ONE ×3 (01:36→12:22)
[2019-03-02] MEDS ORDERED: NA CHLORIDE 0.9% 1,000 ML ONE ×2 (01:36→12:37)
[2019-03-02] MEDS: chlordiazePOXIDE HCl 25 MG CAP PO SCH ×5 (01:41→23:51)
[2019-03-02] MEDS: NA CHLORIDE 0.9% 1,000 ML IV SCH ×3 (01:41→22:28)
[2019-03-02 05:44] LABS: Absolute Lymphocytes (CBC) 1.2 K/uL (0.7-4.9); Basophils % 1.4 % (0-1.3); Hematocrit 29.9 % (36.0-45.0); MPV 8.4 fL (7.6-11.3); RBC Red Blood Cell Count 3.46 M/uL (3.86-4.86)
[2019-03-02 06:02] LABS: BUN Blood Urea Nitrogen 2 mg/dL (7-18); Bicarbonate 27 mmol/L (21-32); Glucose Level 83 mg/dL (74-106); Sodium Level 140 mmol/L (136-145)
[2019-03-02 06:39] LABS: Anisocytosis 3+; Blood Morphology Comment NOTED (NOT SEEN); Platelet Estimate ADEQ; Urine White Blood Cell Casts OK
--- NOTE | 2019-03-02 09:29 | RAD REPORT ---
EXAM DESCRIPTION: CT - Angio Aorta For Dissection - 03/02/2019 9:15 am CLINICAL HISTORY: Chest pain, numbness and tingling COMPARISON: Chest films same date TECHNIQUE: Dynamically enhanced 3 mm thick images of the chest, abdomen, and upper pelvis were obtai elvia during administration of approximately 150mL Isovue 370 IV contrast. Sagittal and coronal reconst ruction images were generated using MIP and reviewed. Exam utilizes a protocol to evaluate entire cou rse of the aorta. All CT scans are performed using dose optimization technique as appropriate and may include automated exposure control or mA/KV adjustment according to patient size. FINDINGS: Ascending aorta is 4.2 x 4.2 cm. Aortic arch is 2.8 cm with a midthoracic aorta 2.3 cm. Ao rta shows normal tapering down to the bifurcation. No dissection, intimal flap or other acute finding noted. Pulmonary arteries are normal. No cardiomegaly, pericardial thickening or pericardial effusion. Minimal posterior gutter atelectasis changes. No mass, infiltrate or edema in the lung saeed. No ple ural thickening, pleural effusion or pneumothorax. No abnormal mediastinal or hilar mass or lymphadenopathy seen. No chest wall mass or abnormal axillar y lymphadenopathy. Celiac, SMA and renal arteries show no suspicious findings. Patient has a normal variant seen as 3 sm aller artery supplying the left kidney. Liver shows fatty infiltration but is otherwise unremarkable. No suspicious solid abdominal visceral finding. Cholecystectomy clips are present with no biliary tr ee dilatation. No mass or abnormal lymphadenopathy. No free air, free fluid or inflammatory strandin g. Urinary bladder is mostly contracted. Uterus and right ovary show no suspicious findings. Left ova ry is prominent likely containing a functional cyst. No worrisome adnexal process. No acute or suspicious bone finding. L5 body is partially sacralized on the left. IMPRESSION: No acute aortic finding seen. Ascending aorta is prominent at 4.[address] chest finding. No abnormality to explain the patient chest pain symptoms. Fatty infiltration of the liver. Gallbladder is absent. No acute abdominal or pelvic finding seen. Colon is decompressed which accentuates the lopez and limits CT assessment. No gross evidence for an acute colon process.
[2019-03-02] MEDS: ENSURE HIGH PROTEIN 237 ML CAN PO SCH (18:00)
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
--- NOTE | 2019-03-02 19:10 | CON ---
History Of Present Illness: Ms. Watson is 43 years old. She came to the hospital because of chest pain. Since being here, EKGs, cardiac enzymes, CAT scan looking for dissection are all normal. Ms. Watson provides a history that she had endocarditis. She is vague about when it occurred "many years ago." She thinks she was in the hospital either here or [place], spent 3 days and did not have long-term antibiotic treatment or valve replacement. So, the history is certainly doubtful for actually being endocarditis, perhaps diagnosis was entertained and ruled out and she did not understand. Since that time, she has had several echocardiograms that showed normal valves, normal ejection fraction , everything normal. She has also had nuclear stress test as recently as 9 months ago that was normal. The patient uses about 4 cigarettes per month. Does not have diabetes. Never had myocardial infarction or stroke or any vascular surgery. She takes metoprolol 100 mg b.i.d. for hypertension. She has a problem with substance abuse. Physical Examination: Vital Signs: 5 feet 8 inches, 165 pounds. HEENT: Normal. Neck: Carotids no bruit. Lungs: Clear. Cardiac: Normal. Abdomen: Soft. Extremities: Normal. I believe Ms. Watson is stable enough to be discharged home. If there is any concern that she might be withdrawing from excessive alcohol, perhaps that would be a reason to sustain her admission to help her get some help with alcohol abuse. Regarding the heart and the need for further hospitalization, she could be discharged. She could have an outpatient workup for chest pain if it continues. LARISSA Voice ID: [id number] Report ID: [id number] REUBEN
[2019-03-02] MEDS ORDERED: POTASSIUM 25 MEQ EFFERV TAB PO ONE (19:17)
[2019-03-02 21:08] LABS: Urine Appearance CLEAR; Urine Bilirubin NEGATIVE (NEG); Urine Blood NEGATIVE (NEG); Urine Color YELLOW; Urine Glucose NEGATIVE (NEG); Urine Protein NEGATIVE (NEG); Urine Specific Gravity <=1.005 (1.005-1.030); Urine Urobilinogen 0.2 mg/dL (0.2-1.0); Urine pH 7.5 (5.0-7.0)
[2019-03-02 21:09] LABS: Urine Microscopic Reflex NO UMIC
[2019-03-02] MEDS: METOPROLOL XL 100 MG TAB PO SCH (22:26)
[2019-03-02] MEDS: PREGABALIN 50 MG CAP PO SCH (23:51)
[2019-03-03] MEDS: chlordiazePOXIDE HCl 25 MG CAP PO SCH ×3 (05:35→17:51)
[2019-03-03] MEDS: ENSURE HIGH PROTEIN 237 ML CAN PO SCH ×4 (05:35→17:51)
[2019-03-03 06:02] VITALS: BMI 23.5
[2019-03-03 06:28] LABS: BUN Blood Urea Nitrogen 1 mg/dL (7-18); Bicarbonate 25 mmol/L (21-32); Glucose Level 91 mg/dL (74-106); Magnesium 1.5 mg/dL (1.8-2.4); Potassium 3.5 mmol/L (3.5-5.1); Sodium Level 139 mmol/L (136-145)
[2019-03-03] MEDS: NA CHLORIDE 0.9% 1,000 ML IV SCH ×3 (06:53→19:25)
[2019-03-03] MEDS ORDERED: POTASSIUM 25 MEQ EFFERV TAB PO ONE (09:00)
[2019-03-03] MEDS ORDERED: Magnesium Sulfate 2gm IVPB 2 G/50 ML BAG IV ONE (09:00)
[2019-03-03] MEDS: METOPROLOL XL 100 MG TAB PO SCH ×2 (10:14→22:03)
[2019-03-03] MEDS: PREGABALIN 50 MG CAP PO SCH ×2 (10:15→22:04)
--- NOTE | 2019-03-03 11:21 | DN ---
Surgeon: Ivan Bradley MD Mrs. Watson has no evidence of coronary heart disease or any other heart disease. This morning she i s exhibiting some signs of alcohol withdrawal. Agitated, slightly tremulous, but not hallucinating. At this point, I want to sign off the case of Mrs. Watson. I would not be back to see her unless Dr Rubia Neil request, but I do not recommend another stress test or echocardiogram in her. She should pro bably be referred to a psych facility or rehab place for substance abuse and alcohol withdrawal. YEFRI/TREVOR Voice ID: [id number] Report ID: [id number]
[2019-03-03] MEDS ORDERED: VANCOMYCIN/NS 1 gm 1 GM/250 ML BAG IVPB SCH (19:45)
[2019-03-03] MEDS: VANCOMYCIN 1.25 GM in NA CHLORIDE 0.9% 250 ML IVPB SCH (20:00)
[2019-03-03] MEDS ORDERED: NA CHLORIDE 0.9% 250 ML ONE (20:11)
[2019-03-03] MEDS ORDERED: VANCOMYCIN 1 GM/VIAL ONE (20:17)
[2019-03-03] MEDS ORDERED: VANCOMYCIN 500 MG/VIAL ONE (20:17)
[2019-03-03] MEDS: ACETAMINOPHEN 500 MG TAB PO PRN (22:04)
[2019-03-03 22:41] LABS: Urine Appearance CLEAR; Urine Bilirubin NEGATIVE (NEG); Urine Blood NEGATIVE (NEG); Urine Color YELLOW; Urine Glucose NEGATIVE (NEG); Urine Protein NEGATIVE (NEG); Urine Specific Gravity <=1.005 (1.005-1.030); Urine pH 7.5 (5.0-7.0)
[2019-03-03 22:43] LABS: Urine Microscopic Reflex NO UMIC
[2019-03-04] MEDS: VANCOMYCIN 1.25 GM in NA CHLORIDE 0.9% 250 ML IVPB SCH ×2 (01:30→16:01)
[2019-03-04] MEDS: chlordiazePOXIDE HCl 25 MG CAP PO SCH ×5 (01:30→23:16)
[2019-03-04] MEDS: NA CHLORIDE 0.9% 1,000 ML IV SCH ×4 (02:41→22:53)
[2019-03-04] MEDS ORDERED: AMPICILLIN SODIUM 2 GM/VIAL VIAL ONE (04:48)
[2019-03-04] MEDS ORDERED: NA CHLORIDE 0.9% 100 ML ONE (04:52)
[2019-03-04] MEDS: AMPICILLIN SODIUM 2 GM in NA CHLORIDE 0.9% 100 ML IVPB SCH ×5 (04:53→18:00)
[2019-03-04] MEDS: ACETAMINOPHEN 500 MG TAB PO PRN ×2 (05:01→17:19)
[2019-03-04] MEDS: ENSURE HIGH PROTEIN 237 ML CAN PO SCH ×5 (05:01→23:16)
[2019-03-04 07:04] LABS: BUN Blood Urea Nitrogen 4 mg/dL (7-18); Bicarbonate 23 mmol/L (21-32); Glucose Level 90 mg/dL (74-106); Magnesium 1.9 mg/dL (1.8-2.4); Potassium 3.3 mmol/L (3.5-5.1); Sodium Level 142 mmol/L (136-145)
--- NOTE | 2019-03-04 07:32 | PN ---
Subjective: Mrs. Watson has no evidence of coronary heart disease or any other heart disease. This morning she is exhibiting some signs of alcohol withdrawal. Agitated, slightly tremulous, but not high llucinating. At this point, I want to sign off the case of Mrs. Watson. I would not be back to see her unless Dr. Neil request, but I do not recommend another stress test or echocardiogram in her. S he should probably be referred to a psych facility or rehab place for substance abuse and alcohol wit hdrawal. ASIF/TREVOR Voice ID: [id number] Report ID: [id number]
--- NOTE | 2019-03-04 08:47 | RAD REPORT ---
EXAM DESCRIPTION: US - Abdomen Exam Complete - 03/03/2019 10:05 pm CLINICAL HISTORY: Abdominal pain, sepsis, hyperthermia Preliminary findings provided at the time of the study. COMPARISON: CT dissection study March 02 FINDINGS: Gallbladder is absent. Common bile duct is normal with no common duct stone identified. Li abby is prominent in size measuring 19-20 cm in maximum dimension. Increased echogenicity is present s uggesting a borderline or mild fatty infiltration. No focal liver lesion identified. Spleen is 11 cm with no focal abnormality. The pancreas is grossly normal but partially obscured at the tail. No turner creatic tail abnormality seen on the prior day CT study. No hydronephrosis or suspicious mass in either kidney. Aorta is normal is size. No ascites or bulky lymphadenopathy. No IVC abnormality. IMPRESSION: Suspected fatty infiltration of an enlarged liver. No focal liver lesions seen. Cholecystectomy with no biliary tree abnormality.
[2019-03-04] MEDS ORDERED: POTASSIUM CL SA 10 MEQ TAB PO ONE ×3 (09:00→21:00)
[2019-03-04] MEDS: METOPROLOL XL 100 MG TAB PO SCH ×2 (09:55→20:49)
[2019-03-04] MEDS: PREGABALIN 50 MG CAP PO SCH ×2 (09:55→20:50)
--- NOTE | 2019-03-04 14:08 | P.PN ---
Subjective Date of Service: 03/03/19 Chief Complaint: FEVER Subjective: C/O voiced SHE WAS TO GO HOME ON BUT SPIKED FEVER UPTO 102 DEG. IN THE PM. NURSE CALLED. I ASKED HER TO HOLD DISCHARGE , GET 3 BLOOD CULTURES AND START IV ABX FOR POSSIBLE ENDOCARDITIS OR BACTERMIA. SHE HAS NO OBVIOUS SOURCE OF INFECTION. Review of Systems 10-point ROS is otherwise unremarkable Musculoskeletal: Leg Pain (CHRONIC.) Physical Examination - Vital Signs Temperature: 97.9 F Blood Pressure: 138/86 Pulse: 83 Respirations: 18 Pulse Ox (%): 95 - Physical Exam General: Mild distress HEENT: Atraumatic, PERRLA, EOMI Neck: Supple, JVD not distended Respiratory: Clear to auscultation bilaterally, Normal air movement Cardiovascular: Regular rate/rhythm, Normal S1 S2 Gastrointestinal: Normal bowel sounds, No tenderness Musculoskeletal: No tenderness Integumentary: No rashes Neurological: Normal speech, Normal tone, Normal affect Lymphatics: No axilla or inguinal lymphadenopathy - Studies Medications List Reviewed: Yes Assessment And Plan - Current Problems (Diagnosis) (1) Alcohol withdrawal Onset Date: 04/14/15 Current Visit: No Status: Acute Plan: LIBRIUM PO. THIAMINE DAILY. FOLATE DAILY. PROGNOSIS POOR. (2) Chest pain Onset Date: 11/07/14 Current Visit: No Status: Acute Plan: STABLE. SHE HAS CHEST PAIN. NO RADIATION. SEEMS NON CARDIAC PAIN. CT SCAN NEGATIVE. CE NEGATIVE. (3) FUO (fever of unknown origin) Current Visit: Yes Status: Acute Plan: STARTED TODAY 2 PM OR SO. BC-3 DONE. UA NEGATIVE CHEST X RAY NEGATIVE. SHE MAY HAVE ENDOCARDIITS, ORAL INFECTION HYGIENE IS POOR, OCCULT INFECTION IN ABDOMEN OR SPINE. ETC. CRP ORDERED.
--- NOTE | 2019-03-04 14:19 | P.PN ---
Subjective Date of Service: 03/04/19 Chief Complaint: FEVER Subjective: Improving SHE WAS TO GO HOME ON BUT SPIKED FEVER UPTO 102 DEG. IN THE PM. NURSE CALLED. I ASKED HER TO HOLD DISCHARGE , GET 3 BLOOD CULTURES AND START IV ABX FOR POSSIBLE ENDOCARDITIS OR BACTERMIA. SHE HAS NO OBVIOUS SOURCE OF INFECTION. SHE DOES NOT HAVE FEVER TODAY. SHE HAS NO OTHER SS TO SUGGEST INFECTION. SHE HAD POOR DENTAL HYGIENE. Physical Examination - Vital Signs Temperature: 97.9 F Blood Pressure: 138/86 Pulse: 83 Respirations: 18 Pulse Ox (%): 95 - Physical Exam General: Mild distress HEENT: Atraumatic, PERRLA, EOMI Neck: Supple, JVD not distended Respiratory: Clear to auscultation bilaterally, Normal air movement Cardiovascular: Regular rate/rhythm, Normal S1 S2 Gastrointestinal: Normal bowel sounds, No tenderness Musculoskeletal: No tenderness Integumentary: No rashes Neurological: Normal speech, Normal tone, Normal affect Lymphatics: No axilla or inguinal lymphadenopathy - Studies Medications List Reviewed: Yes Assessment And Plan - Current Problems (Diagnosis) (1) Alcohol withdrawal Onset Date: 04/14/15 Current Visit: No Status: Acute Plan: LIBRIUM PO. THIAMINE DAILY. FOLATE DAILY. PROGNOSIS POOR. (2) Chest pain Onset Date: 11/07/14 Current Visit: No Status: Acute Plan: STABLE. SHE HAS CHEST PAIN. NO RADIATION. SEEMS NON CARDIAC PAIN. CT SCAN NEGATIVE. CE NEGATIVE. (3) FUO (fever of unknown origin) Current Visit: Yes Status: Acute Plan: STARTED TODAY 2 PM OR SO. BC-3 DONE. UA NEGATIVE CHEST X RAY NEGATIVE. SHE MAY HAVE ENDOCARDIITS, ORAL INFECTION HYGIENE IS POOR, OCCULT INFECTION IN ABDOMEN OR SPINE. ETC. CRP ORDERED. SHE HAD CT DISSECTION PROTOCOL NEG. CULTURE- NEG SO FAR. WILL FU AND DO MORE TESTS. MAY NEED LISANDRA IF CS POS.
--- NOTE | 2019-03-04 16:58 | RAD REPORT ---
EXAM DESCRIPTION: RAD - Chest Single View - 03/04/2019 4:38 pm CLINICAL HISTORY: PICC line placement COMPARISON: March 01 FINDINGS: Portable chest was obtained following placement of a right upper extremity PICC line. The catheter tip is in the mid SVC. Increasing interstitial opacification is present in both lung saeed and there is some patchy alveola r opacification in each lung base. This is believed to be greater than expected for just shallow insp iration. Correlation is needed with any clinical findings for developing volume overload or failure. Early right base pneumonia not excluded..
[2019-03-04] MEDS ORDERED: levoFLOXacin 500 MG TAB PO ONE (18:38)
[2019-03-04] MEDS: FUROSEMIDE 20 MG/ 2ML VIAL IV SCH (19:02)
[2019-03-04] MEDS: ENOXAPARIN 40 MG/0.4 ML SQ SCH (19:03)
[2019-03-04] MEDS: levoFLOXacin 500 MG TAB PO SCH (19:08)
[2019-03-04] MEDS: MAGNESIUM OXIDE 400 MG TAB PO SCH (20:49)
[2019-03-04] MEDS: POTASSIUM CL SA 10 MEQ TAB PO SCH (20:50)
[2019-03-05] MEDS: VANCOMYCIN 1.25 GM in NA CHLORIDE 0.9% 250 ML IVPB SCH ×2 (01:45→13:42)
[2019-03-05] MEDS: NA CHLORIDE 0.9% 1,000 ML IV SCH ×2 (04:13→08:53)
[2019-03-05 04:45] LABS: Absolute Lymphocytes (CBC) 1.8 K/uL (0.7-4.9); Basophils % 0.5 % (0-1.3); Hematocrit 28.2 % (36.0-45.0); Lymphocytes % 24.3 % (15.3-44.8); RBC Red Blood Cell Count 3.12 M/uL (3.86-4.86)
[2019-03-05] MEDS: chlordiazePOXIDE HCl 25 MG CAP PO SCH ×3 (05:03→17:46)
[2019-03-05] MEDS: ENSURE HIGH PROTEIN 237 ML CAN PO SCH ×3 (05:04→17:45)
[2019-03-05 05:09] LABS: ALT/SGPT 19 U/L (12-78); AST/SGOT 30 U/L (15-37); Albumin 2.4 g/dL (3.4-5.0); Alkaline Phosphatase 75 U/L (45-117); BUN Blood Urea Nitrogen 5 mg/dL (7-18); Bicarbonate 24 mmol/L (21-32); Bilirubin Direct 0.3 mg/dL (0-0.2); Bilirubin Total 0.7 mg/dL (0.2-1.0); Glucose Level 133 mg/dL (74-106); Magnesium 1.7 mg/dL (1.8-2.4); Potassium 3.9 mmol/L (3.5-5.1); Sodium Level 139 mmol/L (136-145)
[2019-03-05] MEDS ORDERED: MAGNESIUM SULFATE 1 gm IVPB 1 GM/100 ML BAG IV ONE (05:12)
[2019-03-05] MEDS: FUROSEMIDE 20 MG/ 2ML VIAL IV SCH ×2 (08:25→17:46)
[2019-03-05] MEDS: ENOXAPARIN 40 MG/0.4 ML SQ SCH (08:25)
[2019-03-05] MEDS: METOPROLOL XL 100 MG TAB PO SCH ×2 (08:27→20:29)
[2019-03-05] MEDS: POTASSIUM CL SA 10 MEQ TAB PO SCH ×2 (08:27→20:28)
[2019-03-05] MEDS: MAGNESIUM OXIDE 400 MG TAB PO SCH ×2 (08:28→20:28)
[2019-03-05] MEDS: PREGABALIN 50 MG CAP PO SCH ×2 (08:28→20:29)
[2019-03-05] MEDS ORDERED: POTASSIUM CL SA 10 MEQ TAB PO ONE (09:00)
--- NOTE | 2019-03-05 11:00 | RAD REPORT ---
EXAM DESCRIPTION: CT - Chest For Pe Angio - 03/05/2019 10:33 am CLINICAL HISTORY: Chest pain. HYPOXIA COMPARISON: Chest For Pe Angio dated 06/06/2018 TECHNIQUE: CT angiogram of the pulmonary arteries was performed with MIP. All CT scans are performed using dose optimization technique as appropriate and may include automated exposure control or mA/KV adjustment according to patient size. FINDINGS: No evidence of pulmonary thromboembolism. No acute aortic finding demonstrated. The root of the aorta measures 4.2 cm anterior posterior dimens ion, unchanged. Mild interstitial pulmonary edema suspected. Small to moderate bilateral pleural effusions are seen, larger on the right. Atelectasis is present in both lung bases. No significant pericardial fluid. No concerning bony finding. IMPRESSION: No evidence of pulmonary thromboembolism. Bibasilar lung opacities probably representing atelectasis with small to moderate bilateral pleural e ffusions. Mild interstitial pulmonary edema also suspected.
[2019-03-05] MEDS: levoFLOXacin 500 MG TAB PO SCH (20:28)
--- NOTE | 2019-03-05 20:34 | P.PN ---
Subjective Date of Service: 03/05/19 Chief Complaint: FEVER Subjective: Improving SHE WAS TO GO HOME ON BUT SPIKED FEVER UPTO 102 DEG. IN THE PM. NURSE CALLED. I ASKED HER TO HOLD DISCHARGE , GET 3 BLOOD CULTURES AND START IV ABX FOR POSSIBLE ENDOCARDITIS OR BACTERMIA. SHE HAS NO OBVIOUS SOURCE OF INFECTION. SHE DOES NOT HAVE FEVER TODAY. SHE HAS NO OTHER SS TO SUGGEST INFECTION. SHE HAD POOR DENTAL HYGIENE. SHE CONTINUES TO HAVE CHEST PAIN THAT IS SUBSTERNAL BUT CONSTANT FOR A WEEK. SHE HAS FEVER THAT IS LOW GRADE NOW. Review of Systems 10-point ROS is otherwise unremarkable Respiratory: Pleuritic Pain, As per HPI Physical Examination - Vital Signs Temperature: 97.5 F Blood Pressure: 121/77 Pulse: 81 Respirations: 18 Pulse Ox (%): 100 - Physical Exam General: Alert, In no apparent distress HEENT: Atraumatic, PERRLA, EOMI Neck: Supple, JVD not distended Respiratory: Clear to auscultation bilaterally, Normal air movement Cardiovascular: Regular rate/rhythm, No murmurs Gastrointestinal: Normal bowel sounds, No tenderness Musculoskeletal: No tenderness Integumentary: No rashes Neurological: Normal speech, Normal tone, Normal affect Lymphatics: No axilla or inguinal lymphadenopathy - Studies Laboratory Data (last 24 hrs) 03/05/19 04:30: WBC 7.4 D, Hgb 9.1 L, Hct 28.2 L, Plt Count 130 L 03/05/19 04:30: Sodium 139, Potassium 3.9, BUN 5 L, Creatinine 0.47 L, Glucose 133 H, Magnesium 1.7 L, Total Bilirubin 0.7, AST 30, ALT 19, Alkaline Phosphatase 75 Microbiology Data (last 24 hrs): 03/04/19 00:45 Blood - Blood Anaerobic Blood Culture - Final 03/04/19 00:08 Blood - Blood Anaerobic Blood Culture - Final Medications List Reviewed: Yes Assessment And Plan - Current Problems (Diagnosis) (1) Alcohol withdrawal Onset Date: 04/14/15 Current Visit: No Status: Acute Plan: LIBRIUM PO. THIAMINE DAILY. FOLATE DAILY. PROGNOSIS POOR. (2) Chest pain Onset Date: 11/07/14 Current Visit: No Status: Acute Plan: STABLE. SHE HAS CHEST PAIN. NO RADIATION. SEEMS NON CARDIAC PAIN. CT SCAN NEGATIVE. CE NEGATIVE. COULD BE PERICARDITIS. ECHO PENDING. CRP HIGH ORDER HARMONY, C3-C3, ANTI DS DNA. URIC ACID. (3) FUO (fever of unknown origin) Current Visit: Yes Status: Acute Plan: STARTED TODAY 2 PM OR SO. BC-3 DONE. UA NEGATIVE CHEST X RAY NEGATIVE. SHE MAY HAVE ENDOCARDIITS, ORAL INFECTION HYGIENE IS POOR, OCCULT INFECTION IN ABDOMEN OR SPINE. ETC. CRP ORDERED. SHE HAD CT DISSECTION PROTOCOL NEG. CULTURE- NEG SO FAR. WILL FU AND DO MORE TESTS. MAY NEED LISANDRA IF CS POS. CT SCAN DOES NOT SHOW PNEUMONIA. MORE LIKE ATELECTASIS AND MILD TO MOD EFFUSIONS.
[2019-03-06] MEDS: chlordiazePOXIDE HCl 25 MG CAP PO SCH ×4 (00:07→16:36)
[2019-03-06] MEDS: NA CHLORIDE 0.9% 1,000 ML IV SCH ×2 (00:09→04:53)
[2019-03-06] MEDS: VANCOMYCIN 1.25 GM in NA CHLORIDE 0.9% 250 ML IVPB SCH (01:18)
[2019-03-06 05:09] LABS: Absolute Lymphocytes (CBC) 1.5 K/uL (0.7-4.9); Basophils % 1.1 % (0-1.3); Hematocrit 29.4 % (36.0-45.0); Lymphocytes % 28.4 % (15.3-44.8); MPV 9.1 fL (7.6-11.3); RBC Red Blood Cell Count 3.27 M/uL (3.86-4.86)
[2019-03-06 05:17] LABS: BUN Blood Urea Nitrogen 7 mg/dL (7-18); Bicarbonate 27 mmol/L (21-32); Glucose Level 93 mg/dL (74-106); Magnesium 1.8 mg/dL (1.8-2.4); Potassium 4.2 mmol/L (3.5-5.1); Sodium Level 142 mmol/L (136-145)
[2019-03-06] MEDS: ENSURE HIGH PROTEIN 237 ML CAN PO SCH ×4 (05:43→15:50)
[2019-03-06] MEDS ORDERED: MAGNESIUM SULFATE 1 gm IVPB 1 GM/100 ML BAG IV ONE (05:45)
[2019-03-06] MEDS: FUROSEMIDE 20 MG/ 2ML VIAL IV SCH ×2 (09:41→16:35)
[2019-03-06] MEDS: ENOXAPARIN 40 MG/0.4 ML SQ SCH (09:42)
[2019-03-06] MEDS: PREGABALIN 50 MG CAP PO SCH ×2 (09:42→20:50)
[2019-03-06] MEDS: COLCHICINE 0.6 MG TAB PO SCH ×2 (09:42→20:49)
[2019-03-06] MEDS: POTASSIUM CL SA 10 MEQ TAB PO SCH ×2 (09:42→20:47)
[2019-03-06] MEDS: MAGNESIUM OXIDE 400 MG TAB PO SCH ×2 (09:43→20:49)
[2019-03-06] MEDS: METOPROLOL XL 100 MG TAB PO SCH ×2 (09:43→20:48)
--- NOTE | 2019-03-06 11:16 | RAD REPORT ---
EXAM DESCRIPTION: MRI - Brain W/Wo Cont - 03/06/2019 11:02 am CLINICAL HISTORY: URINARY INCONTINENCE, LEG WEAK, HEAVY ALCOHOLIC COMPARISON: Head Brain Wo Cont dated 06/10/2018; Brain W/Wo Cont dated 04/20/2018; MRA Head Wo Cont d ated 04/20/2018 TECHNIQUE: Multi-sequence, multiplanar MR imaging of the brain was performed with contrast. FINDINGS: No intracranial hemorrhage, hydrocephalus, or extra-axial fluid collection. No edema or sh ift of midline structures. No intracranial mass. DWI is negative for acute CVA. The midline structures are normally formed. Coronal high-resolution T1 and T2 weighted sequences show symmetric temporal lobes and hippocampal structures.Trace fluid is seen mastoid air cell the right. The paranasal sinuses and mastoids are otherwise clear. Post-contrast images show no abnormal enhancement to suggest tumor or infection. IMPRESSION: No pathologic finding is discerned to explain seizure history.
--- NOTE | 2019-03-06 12:46 | P.PN ---
Subjective Date of Service: 03/06/19 Chief Complaint: CHEST PAIN AND INCONTIENCE OF URINE. Subjective: C/O voiced SHE WAS TO GO HOME ON BUT SPIKED FEVER UPTO 102 DEG. IN THE PM. NURSE CALLED. I ASKED HER TO HOLD DISCHARGE , GET 3 BLOOD CULTURES AND START IV ABX FOR POSSIBLE ENDOCARDITIS OR BACTERMIA. SHE HAS NO OBVIOUS SOURCE OF INFECTION. SHE DOES NOT HAVE FEVER TODAY. SHE HAS NO OTHER SS TO SUGGEST INFECTION. SHE HAD POOR DENTAL HYGIENE. SHE CONTINUES TO HAVE CHEST PAIN THAT IS SUBSTERNAL BUT CONSTANT FOR A WEEK. SHE HAS FEVER THAT IS LOW GRADE NOW. TARUN HAS MANY DIFFUSE SYMPTOMS, CHEST PAIN WITH BREATHING, LEG PAIN AND WEAKNESS ON BOTH SIDES, NOW URINARY INCONTINENCE. SHE HAS DRANK HEAVY FOR LONG DURATION. Review of Systems 10-point ROS is otherwise unremarkable General: Weakness, Malaise Neurological: Weakness, Incoordination Physical Examination - Vital Signs Temperature: 97.2 F Blood Pressure: 132/72 Pulse: 79 Respirations: 15 Pulse Ox (%): 98 - Physical Exam General: Alert, Mild distress, Moderate distress HEENT: Atraumatic, PERRLA, EOMI Neck: Supple, JVD not distended Respiratory: Clear to auscultation bilaterally, Normal air movement Cardiovascular: Regular rate/rhythm, Normal S1 S2 Gastrointestinal: Normal bowel sounds, No tenderness Musculoskeletal: No tenderness Integumentary: No rashes Neurological: Normal speech, Abnormal sensation (BOTH LOWER LIMBS. WEAKNESS AND NUMBNESS BELOW KNEES.) Lymphatics: No axilla or inguinal lymphadenopathy - Studies Microbiology Data (last 24 hrs): 03/03/19 13:04 Clean Catch Urine [place] Count - Final 03/03/19 13:04 Clean Catch Urine - Final No growth. Medications List Reviewed: Yes Assessment And Plan - Current Problems (Diagnosis) (1) Alcohol withdrawal Onset Date: 04/14/15 Current Visit: No Status: Acute Plan: LIBRIUM PO. THIAMINE DAILY. FOLATE DAILY. PROGNOSIS POOR. CONTROLLED WITH MEDS. (2) Chest pain Onset Date: 11/07/14 Current Visit: No Status: Acute Plan: STABLE. SHE HAS CHEST PAIN. NO RADIATION. SEEMS NON CARDIAC PAIN. CT SCAN NEGATIVE. CE NEGATIVE. COULD BE PERICARDITIS. ECHO PENDING. CRP HIGH ORDER HARMONY, C3-C3, ANTI DS DNA. URIC ACID. START COLCHICINE BID. DW DR. BARADHI. (3) FUO (fever of unknown origin) Current Visit: Yes Status: Acute Plan: STARTED TODAY 2 PM OR SO. BC-3 DONE. UA NEGATIVE CHEST X RAY NEGATIVE. SHE MAY HAVE ENDOCARDIITS, ORAL INFECTION HYGIENE IS POOR, OCCULT INFECTION IN ABDOMEN OR SPINE. ETC. CRP ORDERED. SHE HAD CT DISSECTION PROTOCOL NEG. CULTURE- NEG SO FAR. WILL FU AND DO MORE TESTS. MAY NEED LISANDRA IF CS POS. CT SCAN DOES NOT SHOW PNEUMONIA. MORE LIKE ATELECTASIS AND MILD TO MOD EFFUSIONS. NO SIGNS OF BACTEREMIA OR ANY SOURCE EXCEPT FOR EARLY PNEUMONIA. STOP VANCOMYCIN. NO SIGNS OF MRSA. (4) Urinary incontinence Current Visit: Yes Status: Acute Plan: MRI BRAIN NEGATIVE. SHE HAS HAD SPINE EVAL BEFORE. ALCOHOLIC NEUROPATHY CAN GIVE MANY OF HER SYMPTOMS.
--- NOTE | 2019-03-06 16:15 | ECHO ---
HEIGHT: 5 ft 8 in WEIGHT: 154 lb 8 oz DATE OF STUDY: 03/06/[address]: Demond Henry MD 2-DIMENSIONAL: YES M.MODE: YES DOPPLER: YES COLOR FLOW: YES TDS: PORTABLE: DEFINITY: BUBBLE STUDY: DIAGNOSIS: CHEST PAIN CARDIAC HISTORY: CATHERIZATION: NO SURGERY: NO PROSTHETIC VALVE: NO PACEMAKER: NO MEASUREMENTS (cm) DIASTOLIC (NORMALS) SYSTOLIC (NORMALS) IVSd 1.1 (0.6-1.2) LA Diam 2.8 (1.9-4.0) LVEF 60% LVIDd 3.9 (3.5-5.7) LVIDs 2.7 (2.0-3.5) %FS 31% LVPWd 1.3 (0.6-1.2) Ao Diam 3.3 (2.0-3.7) 2 DIMENSIONAL ASSESSMENT: RIGHT ATRIUM: NORMAL LEFT ATRIUM: NORMAL RIGHT VENTRICLE: NORMAL LEFT VENTRICLE: NORMAL TRICUSPID VALVE: NORMAL MITRAL VALVE: NORMAL PULMONIC VALVE: NORMAL AORTIC VALVE: NORMAL PERICARDIAL EFFUSION: NONE AORTIC ROOT: NORMAL LEFT VENTRICULAR WALL MOTION: NORMAL DOPPLER/COLOR FLOW: NORMAL COMMENTS: NORMAL 2-DIMENSIONAL ECHOCARDIOGRAM WITH DOPPLER. NO EFFUSION. NO WALL MOTION ABNORMALITY. TECHNOLOGIST: URSZULA VEGA
[2019-03-06] MEDS: levoFLOXacin 500 MG TAB PO SCH (20:48)
--- NOTE | 2019-03-06 22:07 | PN ---
Ms. Watson has been in the hospital since March 05, 2019, with anemia pneumonia, fever. Continues t o have chest pain. Her last echocardiogram was in May 2018. Another echocardiogram, which was done today to rule out pericarditis was perfectly normal without any effusion or evidence of pericard itis. I would continue her present regimen, but I think starting the patient on colchicine 0.6 b.i.d . because of her previous history of pericarditis is very reasonable. I will discuss the case drake r with Dr. Neil. FLACO/TREVOR Voice ID: [id number] Report ID: [id number]
[2019-03-07] MEDS: chlordiazePOXIDE HCl 25 MG CAP PO SCH ×3 (00:14→12:00)
[2019-03-07 04:58] LABS: Absolute Lymphocytes (CBC) 1.6 K/uL (0.7-4.9); Basophils % 1.1 % (0-1.3); Hematocrit 32.3 % (36.0-45.0); Lymphocytes % 31.7 % (15.3-44.8); MPV 9.2 fL (7.6-11.3); RBC Red Blood Cell Count 3.64 M/uL (3.86-4.86)
[2019-03-07 05:17] LABS: BUN Blood Urea Nitrogen 13 mg/dL (7-18); Bicarbonate 28 mmol/L (21-32); Glucose Level 87 mg/dL (74-106); Potassium 4.1 mmol/L (3.5-5.1); Sodium Level 140 mmol/L (136-145)
[2019-03-07] MEDS: ENSURE HIGH PROTEIN 237 ML CAN PO SCH ×5 (06:00→23:47)
[2019-03-07] MEDS: COLCHICINE 0.6 MG TAB PO SCH ×2 (09:09→21:01)
[2019-03-07] MEDS: ENOXAPARIN 40 MG/0.4 ML SQ SCH (09:10)
[2019-03-07] MEDS: METOPROLOL XL 50 MG TAB PO SCH ×2 (09:39→21:00)
[2019-03-07] MEDS: PREGABALIN 50 MG CAP PO SCH ×2 (09:40→20:59)
[2019-03-07] MEDS: MAGNESIUM OXIDE 400 MG TAB PO SCH ×2 (09:40→21:01)
[2019-03-07] MEDS: chlordiazePOXIDE HCl 5 MG CAP PO SCH (20:58)
[2019-03-07] MEDS: levoFLOXacin 500 MG TAB PO SCH (20:59)
--- NOTE | 2019-03-07 21:25 | P.PN ---
Subjective Date of Service: 03/07/19 Chief Complaint: CHEST PAIN AND INCONTIENCE OF URINE. Subjective: Improving SHE WAS TO GO HOME ON BUT SPIKED FEVER UPTO 102 DEG. IN THE PM. NURSE CALLED. I ASKED HER TO HOLD DISCHARGE , GET 3 BLOOD CULTURES AND START IV ABX FOR POSSIBLE ENDOCARDITIS OR BACTERMIA. SHE HAS NO OBVIOUS SOURCE OF INFECTION. SHE DOES NOT HAVE FEVER TODAY. SHE HAS NO OTHER SS TO SUGGEST INFECTION. SHE HAD POOR DENTAL HYGIENE. SHE CONTINUES TO HAVE CHEST PAIN THAT IS SUBSTERNAL BUT CONSTANT FOR A WEEK. SHE HAS FEVER THAT IS LOW GRADE NOW. TARUN HAS MANY DIFFUSE SYMPTOMS, CHEST PAIN WITH BREATHING, LEG PAIN AND WEAKNESS ON BOTH SIDES, NOW URINARY INCONTINENCE. SHE HAS DRANK HEAVY FOR LONG DURATION. SHE SAYS PAIN HAS IMPROVED. Review of Systems 10-point ROS is otherwise unremarkable General: Weakness Neurological: Numbness, As per HPI Physical Examination - Vital Signs Temperature: 97.4 F Blood Pressure: 111/81 Pulse: 88 Respirations: 20 Pulse Ox (%): 98 - Physical Exam General: Alert, Mild distress HEENT: Atraumatic, PERRLA, EOMI Neck: Supple, JVD not distended Respiratory: Clear to auscultation bilaterally, Normal air movement Cardiovascular: Regular rate/rhythm, Normal S1 S2 Gastrointestinal: Normal bowel sounds, No tenderness Musculoskeletal: No tenderness Integumentary: No rashes Neurological: Normal speech, Abnormal strength, Abnormal sensation Lymphatics: No axilla or inguinal lymphadenopathy - Studies Medications List Reviewed: Yes Assessment And Plan - Current Problems (Diagnosis) (1) Alcohol withdrawal Onset Date: 04/14/15 Current Visit: No Status: Acute Plan: LIBRIUM PO. THIAMINE DAILY. FOLATE DAILY. PROGNOSIS POOR. CONTROLLED WITH MEDS. (2) Chest pain Onset Date: 11/07/14 Current Visit: No Status: Acute Plan: STABLE. SHE HAS CHEST PAIN. NO RADIATION. SEEMS NON CARDIAC PAIN. CT SCAN NEGATIVE. CE NEGATIVE. COULD BE PERICARDITIS. ECHO PENDING. CRP HIGH ORDER HARMONY, C3-C3, ANTI DS DNA. URIC ACID. START COLCHICINE BID. TELMA [place]. (3) FUO (fever of unknown origin) Current Visit: Yes Status: Acute Plan: STARTED TODAY 2 PM OR SO. BC-3 DONE. UA NEGATIVE CHEST X RAY NEGATIVE. SHE MAY HAVE ENDOCARDIITS, ORAL INFECTION HYGIENE IS POOR, OCCULT INFECTION IN ABDOMEN OR SPINE. ETC. CRP ORDERED. SHE HAD CT DISSECTION PROTOCOL NEG. CULTURE- NEG SO FAR. WILL FU AND DO MORE TESTS. MAY NEED LISANDRA IF CS POS. CT SCAN DOES NOT SHOW PNEUMONIA. MORE LIKE ATELECTASIS AND MILD TO MOD EFFUSIONS. NO SIGNS OF BACTEREMIA OR ANY SOURCE EXCEPT FOR EARLY PNEUMONIA. STOP VANCOMYCIN. NO SIGNS OF MRSA. THIS COULD BE NON INFECTIOUS FEVER. SO FAR NO CULTURES ARE POSITIVE. (4) Urinary incontinence Current Visit: Yes Status: Acute Plan: MRI BRAIN NEGATIVE. SHE HAS HAD SPINE EVAL BEFORE. ALCOHOLIC NEUROPATHY CAN GIVE MANY OF HER SYMPTOMS.
[2019-03-08 04:55] LABS: Absolute Lymphocytes (CBC) 1.6 K/uL (0.7-4.9); Basophils % 0.8 % (0-1.3); Hematocrit 30.6 % (36.0-45.0); Lymphocytes % 31.5 % (15.3-44.8); MPV 9.1 fL (7.6-11.3); RBC Red Blood Cell Count 3.41 M/uL (3.86-4.86)
[2019-03-08] MEDS: ENSURE HIGH PROTEIN 237 ML CAN PO SCH ×2 (05:14→12:00)
[2019-03-08 05:23] VITALS: O2SAT 97
[2019-03-08] MEDS: COLCHICINE 0.6 MG TAB PO SCH (09:06)
[2019-03-08] MEDS: METOPROLOL XL 50 MG TAB PO SCH (09:09)
[2019-03-08] MEDS: MAGNESIUM OXIDE 400 MG TAB PO SCH (09:09)
[2019-03-08] MEDS: ENOXAPARIN 40 MG/0.4 ML SQ SCH (09:09)
[2019-03-08] MEDS: PREGABALIN 50 MG CAP PO SCH (09:12)
[2019-03-08] MEDS: chlordiazePOXIDE HCl 5 MG CAP PO SCH (10:00)
[2019-03-08 13:57] VITALS: BP 124/72; TEMP 97.3
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
--- NOTE | 2019-03-08 21:38 | PN ---
Date of Progress Note: 03/07/2019 The patient had come in with chest pain that has persisted that is putting over the question of peric arditis. Colchicine was started. She had fever with negative workup so far. Echocardiography that was done showed normal ejection fraction, no wall motion abnormalities, no vegetation, and no effusio n. The case was discussed with Dr. Neil. I will continue present treatment. She can go home whene abby it is okay by him. Apparently, if her fever persisted without any findings down the road, then I will suggest that she have a transesophageal echocardiography. FLACO/TREVOR Voice ID: [id number] Report ID: [id number]
== END 2019-03-08 13:58 | disposition home or self-care (01) | DRG 897 ==
LOC: ER 14:49 → ERHOLD 20:57 → 2ND 03-02 18:09 → OBSVTOIN 03-05 10:43
PROVIDERS: ADMIT Internal Medicine; ATTEND Internal Medicine
DX: F10.239 Alcohol dependence with withdrawal, unspecified (principal); I31.9 Disease of pericardium, unspecified; R07.9 Chest pain, unspecified; R50.9 Fever, unspecified; R32 Unspecified urinary incontinence; G62.1 Alcoholic polyneuropathy; F10.20 Alcohol dependence, uncomplicated
CPT/HCPCS: 36415; 70553; 71045; 71275; 74175; 76700; 76857; 80048; 80076; 80202; 80307; 80320; 81003; 83605; 83735; 83880; 84132; 84145; 84484; 84550; 85025; 85610; 86038; 86140; 86160; 86225; 87040; 87086; 87088; 93005; 93306; 96365; 96375; 97116; 97161; 99285; A9577; G0378; J0290; J1650; J1940; J3411; J3475; J7030; Q9967

== ENCOUNTER 2019-09-09 19:36 | Emergency (ER) | payer OTHER ==
--- OUTSIDE RECORDS SUMMARY | 2019-09-09 19:39 | XMS REPORT ---
:1975 [facility] Organization [facility] Address [address] [place] [address] Care Team Providers Name Role Phone Unavailable Unavailable Unavailable Payers Payer Name Policy Type Policy Number Effective Date Expiration Date Problems This patient has no known problems. Allergies, Adverse Reactions, Alerts Allergy Allergy Status Severity Reaction(s) Onset Inactive Treating Comments Name Type Date Date Clinician cefazolin DA Active MO 2019-01 00:00:0 0 Medications This patient has no known medications. Encounters Start End Encounter Admission Attending Care Care Encounter Date/Time Date/Time Type Type Clinicians Facility Department ID 2019-04-03 Inpatient [facility] [id number] 20:16:00 2019-03-26 2019-03-26 Emergency E [facility] 7500 04:09:00 04:09:00 Results Test Description Test Time Test Comments [...] (test code=CA) 9.1 mg/dL 8.5-10.1 BASIC METABOLIC [id number] 12:30:00 Test Item Value Reference Range Comments [...] (test code=HCGTRIAGE) Negative SPECIMEN COMMENTS: URINECOMMENTS TO CHICKEN HANDLER: URINE TESTUrine Test Result: NEGATIVEAre internal controls (presence of a control line & clear background) OK? YLot # of HCG Test Kit: [id number] Date of Kit: 06/23/2020Test Performed by: Marlene Perfomed on: CHEMISTRY 8 [id number] 13:46:00 Test Item Value Reference Range Comments [...] POC (test code=GFRBED) 134 >60 CHEMISTRY 8 [id number] 13:46:00 Test Item Value Reference Range Comments [...] POC (test 134 >60 code=GFRBED) POC LACTIC [id number] 13:40:00 Test Item Value Reference Range Comments POC LACTIC ACID (test code=POCLAC) 0.94 MMOL/L 0.4-2.2 URINALYSIS [id number] 02:02:00 Test Item Value Reference Range Comments [...] #/LPF FEW Urine Source? Clean CatchBASIC METABOLIC [id number] 01:55:00 Test Item Value Reference Range Comments [...] (test code=CA) 7.7 mg/dL 8.5-10.1 HEPATIC FUNCTION [id number] 01:55:00 Test Item Value Reference Range Comments [...] code=ALKP) range due to change in reagent. [id number] 01:55:00 Test Item Value Reference Range Comments LIPASE (test code=LIP) 123 U/L 73.0-393.0 HCG SERUM [id number] 01:55:00 Test Item Value Reference Range Comments HCG SERUM QUAL (test NEGATIVE NEGATIVE This HCGQL test is NOT code=HCGQL) applicable for MALE patients.Check with nurse about probable order error.If Tumor Marker Test needed, nurse should order test "HCGTU"(Test #550.96371) -- BASIC METABOLIC [id number] 01:48:00 Test Item Value Reference Range Comments [...] CALCIUM (test code=CA) mg/dL 8.5-10.1 HEPATIC FUNCTION [id number] 01:48:00 Test Item Value Reference Range Comments TOTAL PROTEIN (test code=PROT) gram/dL 6.4-8.2 ALBUMIN (test code=ALB) g/dL 3.4-5.0 GLOBULIN (test code=GLOB) gram/dL 2.7-4.2 ALBUMIN/GLOBULIN RATIO (test code=A/G) 0.75-1.50 BILIRUBIN TOTAL (test code=BILT) mg/dL 0.0-1.0 BILIRUBIN DIRECT (test code=BILD) mg/dL 0.0-0.20 SGOT/AST (test code=AST) IUnit/L 15-37 SGPT/ALT (test code=ALT) IUnit/L 12-78 ALKALINE PHOSPHATASE TOTAL (test code=ALKP) IUnit/L 45-117 [id number] 01:48:00 Test Item Value Reference Range Comments LIPASE (test code=LIP) U/L 73.0-393.0 HCG SERUM [id number] 01:48:00 Test Item Value Reference Range Comments HCG SERUM QUAL (test NEGATIVE NEGATIVE This HCGQL test is NOT code=HCGQL) applicable for MALE patients.Check with nurse about probable order error.If Tumor Marker Test needed, nurse should order test "HCGTU"(Test #550.67298) -- [id number] 01:48:00 Test Item Value Reference Range Comments MAGNESIUM (test code=MAG) 1.7 mg/dL 1.8-2.4 BASIC METABOLIC [id number] 01:41:00 Test Item Value Reference Range Comments [...] CALCIUM (test code=CA) mg/dL 8.5-10.1 HEPATIC FUNCTION [id number] 01:41:00 Test Item Value Reference Range Comments TOTAL PROTEIN (test code=PROT) gram/dL 6.4-8.2 ALBUMIN (test code=ALB) g/dL 3.4-5.0 GLOBULIN (test code=GLOB) gram/dL 2.7-4.2 ALBUMIN/GLOBULIN RATIO (test code=A/G) 0.75-1.50 BILIRUBIN TOTAL (test code=BILT) mg/dL 0.0-1.0 BILIRUBIN DIRECT (test code=BILD) mg/dL 0.0-0.20 SGOT/AST (test code=AST) IUnit/L 15-37 SGPT/ALT (test code=ALT) IUnit/L 12-78 ALKALINE PHOSPHATASE TOTAL (test code=ALKP) IUnit/L 45-117 [id number] 01:41:00 Test Item Value Reference Range Comments LIPASE (test code=LIP) U/L 73.0-393.0 HCG SERUM [id number] 01:41:00 Test Item Value Reference Range Comments HCG SERUM QUAL (test NEGATIVE NEGATIVE This HCGQL test is NOT code=HCGQL) applicable for MALE patients.Check with nurse about probable order error.If Tumor Marker Test needed, nurse should order test "HCGTU"(Test #550.43418) -- CBC W/O [id number] 01:37:00 Test Item Value Reference Range Comments [...]
--- NOTE | 2019-09-09 20:55 | RAD REPORT ---
EXAM DESCRIPTION: CT - Head C Spine Cap Wo Con - 09/09/2019 8:19 pm TECHNIQUE: Computed axial tomography of the head and cervical spine was obtained. Coronal and sagitt al reconstruction was performed Computed axial tomography of the chest, abdomen and pelvis was obtained. Contrast was not requested. All CT scans are performed using dose optimization technique as appropriate and may include automated exposure control or mA/KV adjustment according to patient size. CLINICAL HISTORY: Head and neck injury with chest and abdominal pain status post fall COMPARISON: 2018 ct FINDINGS: An intracranial bleed is not seen. The ventricles are normal in caliber. An extra-axial fluid collection is not noted. . Fluid within sphenoid sinus may indicate acute sinusitis A cervical fracture is not seen. No dislocation is noted. The evaluation of mediastinum, myra, vessels, solid organs and bowel are limited secondary to the lac k of contrast administration. A mediastinal hematoma is not noted. A pleural effusion is not seen. A lung contusion is not present. The ascending aorta has an AP diameter 4.3 centimeters The liver,spleen, pancreas, adrenals,kidneys and bladder do not demonstrate a traumatic injury IMPRESSION: 1. No acute intracranial abnormality is seen. 2. A cervical fracture is not visualized. If the patient continues have symptoms to suggest intracran ial/spinal cord pathology MRI be recommended 3. No traumatic abnormality involving the chest/abdomen/pelvis.
[2019-09-09] MEDS ORDERED: LIDOCAINE 1% W/EPI 1:100,000 MDV 20 ML VIAL ONE (21:22)
--- NOTE | 2019-09-09 21:52 | ER ---
Nurse's Notes [facility] Name: Diana Watson Age: 44 yrs Sex: Female : 1975 Arrival Date: 09/09/2019 Time: 19:46 Bed 6 Private MD: Diagnosis: Laceration without foreign body of other part of head Presentation: 09/09 19:35 Presenting complaint: EMS states: Pt fell from standing. Has been drinking. possible jb4 LOC, pt could not recall events. She was alert and oriented during transit PERRLA. 2-3in Laceration to the forehead with a hematoma. 19:35 Transition of care: patient was not received from another setting of care. Onset of jb4 symptoms was September 09, 2019. Risk Assessment: Do you want to hurt yourself or someone else? Patient reports no desire to harm self or others. Initial Sepsis Screen: Does the patient meet any 2 criteria? HR > 90 bpm. Yes Does the patient have a suspected source of infection? No. Patient's initial sepsis screen is negative. Care prior to arrival: None. 19:35 Method Of Arrival: EMS: [facility] 19:35 Acuity: HUAN 2 jb4 19:35 Mechanism of Injury: Fall from standing position. Trauma event details: Injury occurred jb4 in the [facility]. Trauma Activation: Alert Physician: ED Physician; Name: Konrad; Notified At: 19:34; Arrived At: 19:34 Physician: General Surgeon; Name: ; Notified At: 19:34; Arrived At: Physician: Radiology; Name: Riya Mendes; Notified At: 19:34; Arrived At: 19:34 Physician: Respiratory; Name: Gilberto; Notified At: 19:34; Arrived At: 19:34 Physician: Lab; Name: ; Notified At: 19:34; Arrived At: Historical: - Allergies: 19:35 Ancef (rash); jb4 - Home Meds: 19:35 metoprolol 100 mg one tab once daily [Active]; jb4 - PMHx: 19:35 Alcoholism; Hypertension; Ulcers; Anxiety; jb4 - PSHx: 19:35 None; jb4 - Immunization history:: Adult Immunizations unknown. - Coronavirus screen:: The patient has NOT traveled to [place] in the past 14 days. Proceed with normal triage process as indicated. The patient has NOT had contact with known/suspected case of Coronavirus? Proceed with normal triage procedures. - Social history:: Patient uses alcohol, Patient/guardian denies using Smoking status: unknown Patient uses alcohol, patient/guardian reports recent binge of alcohol consumption. Patient/guardian denies using street drugs. - Immunization history: Last tetanus immunization: unknown. - Family history:: not pertinent. - Ebola Screening: : No symptoms or risks identified at this time. Screenin:35 Abuse screen: Denies threats or abuse. Nutritional screening: No deficits noted. jb4 Tuberculosis screening: No symptoms or risk factors identified. Fall risk At risk due to prior history of falls, Intervention for positive screen: ED Physician notified, side rails up. 19:35 Fall Risk Fall in past 12 months (25 points). Gait- Impaired (20 pts.). Total Feldman jb4 Fall Scale indicates High Risk Score (45 or more points). Fall prevention measures have been instituted. Side Rails Up X 2 Placed Close to Nursing Station Frequent Obs/Assessments Occuring As available patient and family educated on Fall Prevention Program and Strategies. Primary Survey: 19:35 NO uncontrolled hemorrhage observed. A: The patient is alert. Airway: patent, No jb4 supplemental oxygen in use on arrival. Breathing/Chest: Respiratory pattern: regular, Respiratory effort: spontaneous, unlabored, Breath sounds: clear, bilaterally. Chest inspection: symmetrical rise and fall of the chest. Circulation: Skin color: pink, Skin temperature: warm, dry. Disability Alert. Exposure/Environment: All clothing and personal items were removed. Forensic evidence collection is not deemed to be indicated at this time. Items placed in patient belonging bag. There is no evidence of uncontrolled external bleeding. Obvious injury(ies) are noted at this time: 2 in laceration to the forehead w/ hematoma. Abrasion to the right knee. A warming method has been applied: A warm blanket has been provided to the patient. 20:30 Reassessment Airway Airway Patent Oxygen No O2 Breathing/Chest Respiratory pattern jb4 Regular Respiratory effort Spontaneous Unlabored Chest inspection Symmetrical Circulation Color [place] Temperature Warm Dry. Secondary Survey: 19:35 HEENT: Head Other Laceration and hematoma to the forehead. Face No injury/deformity jb4 Eyes: No injury or deformity noted. Ears: clear Nose: clear. Gastrointestinal: No deficits noted. : No deficits noted. Musculoskeletal: Circulation, motion, and sensation intact. Range of motion: intact in all extremities. Injury Description: Abrasion sustained to right knee hematoma to forehead Laceration sustained to forehead is 2.6 to 7.5 cm long, not bleeding. Assessment: 19:35 General: Appears in no apparent distress. comfortable, Behavior is calm, cooperative. jb4 Pain: Complains of pain in forehead and right knee Pain does not radiate. Pain currently is 5 out of 10 on a pain scale. Neuro: Level of Consciousness is awake, alert, obeys commands, Oriented to person, place, Moves all extremities. Full function Speech is normal, Facial symmetry appears normal, Pupils are PERRLA, Intact. Cardiovascular: Patient's skin is warm and dry. Respiratory: Airway is patent Respiratory effort is even, unlabored, Respiratory pattern is regular, symmetrical, Breath sounds are clear bilaterally. GI: No signs and/or symptoms were reported involving the gastrointestinal system. : No signs and/or symptoms were reported regarding the genitourinary system. EENT: No signs and/or symptoms were reported regarding the EENT system. Derm: Skin is pink, warm \T\ dry. Musculoskeletal: Circulation, motion, and sensation intact. Range of motion: intact in all extremities. Injury Description: Abrasion sustained to right knee Head injury sustained to forehead is open, had loss of consciousness, Laceration sustained to forehead is 2.6 to 7.5 cm long, not bleeding. 20:35 Reassessment: Patient appears in no apparent distress at this time. Patient and/or jb4 family updated on plan of care and expected duration. Pain level reassessed. Patient is alert, oriented x 3, equal unlabored respirations, skin warm/dry/pink. 21:30 Reassessment: Patient appears in no apparent distress at this time. Patient and/or jb4 family updated on plan of care and expected duration. Pain level reassessed. Patient is alert, oriented x 3, equal unlabored respirations, skin warm/dry/pink. Patient states feeling better. 22:01 Reassessment: Patient appears in no apparent distress at this time. Patient and/or jb4 family updated on plan of care and expected duration. Pain level reassessed. Patient is alert, oriented x 3, equal unlabored respirations, skin warm/dry/pink. pt verbalized understanding of d/c and follow up instructions. 22:30 Reassessment: Patient appears in no apparent distress at this time. Patient and/or jb4 family updated on plan of care and expected duration. Pain level reassessed. Patient is alert, oriented x 3, equal unlabored respirations, skin warm/dry/pink. Pt d/c pending, waiting for ride home. Pt is ambulating in the room with steady gait. 23:13 Reassessment: Patient appears in no apparent distress at this time. Patient and/or jb4 family updated on plan of care and expected duration. Pain level reassessed. Patient is alert, oriented x 3, equal unlabored respirations, skin warm/dry/pink. Pt assisted to vehicle via wheelchair. PT and son verbalized understanding of d/c and follow up instructions. Stables and bandage remain in place. Pt is alert and oriented x 4. Speech is normal. Vital Signs: 19:35 BP 134 / 104; Pulse 115; Resp 18; Temp 98.5(O); Pulse Ox 97% on R/A; Weight 77.11 kg jb4 (R); Height 5 ft. 8 in. (172.72 cm) (R); Pain 5/10; 20:30 BP 126 / 84; Pulse 94; Resp 16; Pulse Ox 98% on R/A; jb4 21:30 BP 141 / 97; Pulse 103; Resp 16; Pulse Ox 100% on R/A; jb4 23:00 BP 138 / 98; Pulse 128; Resp 16; Pulse Ox 100% on R/A; jb4 19:35 Body Mass Index 25.85 (77.11 kg, 172.72 cm) jb4 Juanpablo Coma Score: 19:35 Eye Response: spontaneous(4). Verbal Response: confused(4). Motor Response: obeys jb4 commands(6). Total: 14. 20:30 Eye Response: spontaneous(4). Verbal Response: oriented(5). Motor Response: obeys jb4 commands(6). Total: 15. 21:48 Eye Response: spontaneous(4). Verbal Response: oriented(5). Motor Response: obeys ma2 commands(6). Total: 15. Trauma Score (Adult): 19:35 Eye Response: spontaneous(1); Verbal Response: confused(1); Motor Response: obeys jb4 commands(2); Systolic BP: > 89 mm Hg(4); Respiratory Rate: 10 to 29 per min(4); Selma Score: 14; Trauma Score: 12 20:30 Eye Response: spontaneous(1); Verbal Response: oriented(1); Motor Response: obeys jb4 commands(2); Systolic BP: > 89 mm Hg(4); Respiratory Rate: 10 to 29 per min(4); Selma Score: 15; Trauma Score: 12 ED Course: 19:35 Arm band placed on right wrist. jb4 19:35 Patient has correct armband on for positive identification. Placed in gown. Bed in low jb4 position. Call light in reach. Side rails up X2. Patient maintains SpO2 saturation greater than 95% on room air. laboratory monitor on. Pulse ox on. NIBP on. 19:35 Patient maintains SpO2 saturation greater than 95% on room air. jb4 19:35 Thermoregulation: warm blanket given to patient. jb4 19:46 Patient arrived in ED. jb4 19:47 Yair Silvetsre MD is Attending Physician. ma2 20:00 Dougie Osorio, CARLY is Primary Nurse. jb4 20:02 Triage completed. jb4 20:19 CT completed. Patient tolerated procedure well. Patient moved back from CT. mw3 21:35 Assist provider with laceration repair on forehead that was between 2.6 to 7.5 cm using jb4 alfredo. Set up tray. Performed by Yair Silvestre MD Dressed with 4X4s, Patient tolerated well. 22:02 Patient did not have IV access during this emergency room visit. jb4 Administered Medications: 21:35 Drug: Lidocaine-Epinephrine -1%: (1:100,000) 1 application {Note: Administered by ED jb4 provider..} Volume: 20 ml; Route: Infiltration; 23:16 Follow up: Response: No adverse reaction jb4 Output: 22:29 Urine: 1ml (Voided); Total: 1ml. jb4 Outcome: 21:52 Discharge ordered by . ma2 23:15 Discharged to home via wheelchair, with family. jb4 23:15 Condition: stable 23:15 Discharge instructions given to patient, family, Instructed on discharge instructions, follow up and referral plans. Demonstrated understanding of instructions, follow-up care. 23:15 Patient's length of stay in the Emergency Department was greater than 2 hours. PT jb4 waiting for ride.Patient's length of stay extended due to 23:16 Patient left the ED. jb4 Signatures: Dougie Osorio RN RN jb4 Yair Silvestre MD MD ma2 Caitlyn Stockton mw3 Corrections: (The following items were deleted from the chart) 22:02 21:35 Assist provider with laceration repair on forehead that was between 2.6 to 7.5 cm jb4 using sutures. Set up tray. Performed by Yair Silvestre MD Dressed with 4X4s, Patient tolerated well. jb4 09/10 04:10 09/09 22:30 Reassessment: Patient appears in no apparent distress at this time. Patient jb4 and/or family updated on plan of care and expected duration. Pain level reassessed. Patient is alert, oriented x 3, equal unlabored respirations, skin warm/dry/pink. Pt d/c pending, waiting for ride home. jb4 09/10 04:10 09/09 23:13 Reassessment: Patient appears in no apparent distress at this time. Patient jb4 and/or family updated on plan of care and expected duration. Pain level reassessed. Patient is alert, oriented x 3, equal unlabored respirations, skin warm/dry/pink. Pt assisted to vehicle via wheelchair. PT and son verbalized understanding of d/c and follow up instructions. jb4
--- NOTE | 2019-09-09 21:53 | EDPHYS ---
Physician Documentation [facility] Name: Diana Watson Age: 44 yrs Sex: Female : 1975 Arrival Date: 09/09/2019 Time: 19:46 Bed 6 Private MD: ED Physician Yair Silvestre HPI: 09/09 21:48 This 44 yrs old Female presents to ER via EMS with complaints of fall scalp ma2 laceration. 21:48 The patient or guardian reports injury, a laceration. The complaints affect the top of ma2 head. Onset: The symptoms/episode began/occurred suddenly, 1 hour(s) ago. Severity of symptoms: At their worst the symptoms were moderate, in the emergency department the symptoms are unchanged. The patient has not experienced similar symptoms in the past. Historical: - Allergies: 19:35 Ancef (rash); jb4 - Home Meds: 19:35 metoprolol 100 mg one tab once daily [Active]; jb4 - PMHx: 19:35 Alcoholism; Hypertension; Ulcers; Anxiety; jb4 - PSHx: 19:35 None; jb4 - Immunization history:: Adult Immunizations unknown. - Coronavirus screen:: The patient has NOT traveled to [place] in the past 14 days. Proceed with normal triage process as indicated. The patient has NOT had contact with known/suspected case of Coronavirus? Proceed with normal triage procedures. - Social history:: Patient uses alcohol, Patient/guardian denies using Smoking status: unknown Patient uses alcohol, patient/guardian reports recent binge of alcohol consumption. Patient/guardian denies using street drugs. - Immunization history: Last tetanus immunization: unknown. - Family history:: not pertinent. - Ebola Screening: : No symptoms or risks identified at this time. ROS: 21:48 Constitutional: Negative for fever, chills, and weight loss. ma2 21:48 All other systems are negative. Exam: 21:48 Constitutional: This is a well developed, well nourished patient who is awake, alert, ma2 and in no acute distress. Head/Face: laceration stellate, 7 cm on upper scalp Eyes: Pupils equal round and reactive to light, extra-ocular motions intact. Lids and lashes normal. Conjunctiva and sclera are non-icteric and not injected. Cornea within normal limits. Periorbital areas with no swelling, redness, or edema. ENT: Nares patent. No nasal discharge, no septal abnormalities noted. Tympanic membranes are normal and external auditory canals are clear. Oropharynx with no redness, swelling, or masses, exudates, or evidence of obstruction, uvula midline. Mucous membranes moist. Chest/axilla: Normal chest wall appearance and motion. Nontender with no deformity. No lesions are appreciated. Cardiovascular: Regular rate and rhythm with a normal S1 and S2. No gallops, murmurs, or rubs. Normal PMI, no JVD. No pulse deficits. Respiratory: Lungs have equal breath sounds bilaterally, clear to auscultation and percussion. No rales, rhonchi or wheezes noted. No increased work of breathing, no retractions or nasal flaring. Abdomen/GI: Soft, non-tender, with normal bowel sounds. No distension or tympany. No guarding or rebound. No evidence of tenderness throughout. Neuro: Awake and alert, GCS 15, oriented to person, place, time, and situation. Cranial nerves II-XII grossly intact. Motor strength 5/5 in all extremities. Sensory grossly intact. Cerebellar exam normal. Normal gait. Vital Signs: 19:35 BP 134 / 104; Pulse 115; Resp 18; Temp 98.5(O); Pulse Ox 97% on R/A; Weight 77.11 kg jb4 (R); Height 5 ft. 8 in. (172.72 cm) (R); Pain 5/10; 20:30 BP 126 / 84; Pulse 94; Resp 16; Pulse Ox 98% on R/A; jb4 21:30 BP 141 / 97; Pulse 103; Resp 16; Pulse Ox 100% on R/A; jb4 23:00 BP 138 / 98; Pulse 128; Resp 16; Pulse Ox 100% on R/A; jb4 19:35 Body Mass Index 25.85 (77.11 kg, 172.72 cm) jb4 Juanpablo Coma Score: 19:35 Eye Response: spontaneous(4). Verbal Response: confused(4). Motor Response: obeys jb4 commands(6). Total: 14. 20:30 Eye Response: spontaneous(4). Verbal Response: oriented(5). Motor Response: obeys jb4 commands(6). Total: 15. 21:48 Eye Response: spontaneous(4). Verbal Response: oriented(5). Motor Response: obeys ma2 commands(6). Total: 15. Trauma Score (Adult): 19:35 Eye Response: spontaneous(1); Verbal Response: confused(1); Motor Response: obeys jb4 commands(2); Systolic BP: > 89 mm Hg(4); Respiratory Rate: 10 to 29 per min(4); Juanpablo Score: 14; Trauma Score: 12 20:30 Eye Response: spontaneous(1); Verbal Response: oriented(1); Motor Response: obeys jb4 commands(2); Systolic BP: > 89 mm Hg(4); Respiratory Rate: 10 to 29 per min(4); Juanpablo Score: 15; Trauma Score: 12 Laceration: 21:48 Wound Repair of 7cm ( 2.8in ) subcutaneous laceration to face. Distal ma2 neuro/vascular/tendon intact. Anesthesia: Local anesthetic administered with 12 mls of 1% lidocaine. Wound prep: Moderate cleansing. Skin closed with 11 1-0 Murphy using simple sutures and sterile technique. Patient tolerated fair. MDM: 19:47 Patient medically screened. ma2 21:48 Differential diagnosis: Contusion of Hematoma on Laceration of Intracranial bleed- ma2 Concussion. Data reviewed: vital signs, nurses notes. Counseling: I had a detailed discussion with the patient and/or guardian regarding: the historical points, exam findings, and any diagnostic results supporting the discharge/admit diagnosis, the presence of at least one elevated blood pressure reading (>120/80) during this emergency department visit, the need for outpatient follow up. Response to treatment: the patient's symptoms have resolved after treatment. 09/09 19:48 Order name: CT Traumagram (Head C Spine CAP wo con) hi2 09/09 20:58 Order name: CT; Complete Time: 21:13 EDMS Administered Medications: 21:35 Drug: Lidocaine-Epinephrine -1%: (1:100,000) 1 application {Note: Administered by ED jb4 provider..} Volume: 20 ml; Route: Infiltration; 23:16 Follow up: Response: No adverse reaction [facility] Disposition: 09/09/19 21:52 Discharged to Home. Impression: Laceration without foreign body of other part of head. - Condition is Stable. - Discharge Instructions: Laceration Care, Adult. - Medication Reconciliation Form, Thank You Letter, Antibiotic Education, Prescription Opioid Use form. - Follow up: Private Physician; When: Tomorrow; Reason: Recheck today's complaints. - Notes: remove alfredo in 1 week Signatures: Dispatcher [employer] EDDougie Solo RN RN jb4 Yair Silvestre MD MD ma2 Corrections: (The following items were deleted from the chart) 23:16 21:52 09/09/2019 21:52 Discharged to Home. Impression: Laceration without foreign body jb4 of other part of head. Condition is Stable. Forms are Medication Reconciliation Form, Thank You Letter, Antibiotic Education, Prescription Opioid Use. Follow up: Private Physician; When: Tomorrow; Reason: Recheck today's complaints. ma2
[2019-09-09 23:44] VITALS: O2SAT 100
[2019-09-09 23:45] VITALS: BP 138/98
== END 2019-09-09 23:16 | disposition home or self-care (01) ==
LOC: ER 19:36
PROC: 0JQ10ZZ Repair Face Subcutaneous Tissue and Fascia, Open Approach (ICD-10-PCS; principal; 2019-09-09)
PROC: 0JQ10ZZ Repair Face Subcutaneous Tissue and Fascia, Open Approach (ICD-10-PCS; 2019-09-09)
DX: S01.81XA Laceration without foreign body of other part of head, initial encounter (principal); W19.XXXA Unspecified fall, initial encounter; Y93.9 Activity, unspecified; Y92.9 Unspecified place or not applicable; F10.20 Alcohol dependence, uncomplicated; I10 Essential (primary) hypertension; Z88.1 Allergy status to other antibiotic agents
CPT/HCPCS: 70450; 71250; 72125; 99285

== ENCOUNTER 2020-02-18 20:30 | Inpatient (IN) | payer OTHER ==
[2020-02-18] MEDS ORDERED: ACETAMINOPHEN 500 MG TAB ONE (20:53)
[2020-02-18] MEDS ORDERED: NA CHLORIDE 0.9% 2,000 ML ONE (20:53)
[2020-02-18 21:15] LABS: Absolute Lymphocytes (CBC) 0.8 K/uL (0.7-4.9); Basophils % 0.3 % (0-1.3); Hematocrit 31.9 % (36.0-45.0); MPV 8.3 fL (7.6-11.3); RBC Red Blood Cell Count 4.17 M/uL (3.86-4.86)
[2020-02-18 21:19] LABS: Protime INR 1.11
[2020-02-18] MEDS ORDERED: ONDANSETRON 4 MG/2 ML VIAL ONE ×2 (21:22→23:54)
[2020-02-18 21:30] LABS: ALT/SGPT 28 U/L (12-78); AST/SGOT 28 U/L (15-37); Alkaline Phosphatase 60 U/L (45-117); Amylase 99 U/L (25-115); BUN Blood Urea Nitrogen 6 mg/dL (7-18); Bicarbonate 29 mmol/L (21-32); Bilirubin Direct 0.1 mg/dL (0-0.2); Bilirubin Total 0.4 mg/dL (0.2-1.0); CKMB Creatine Kinase MB < 1.0 ng/mL (0.3-3.6); Creatine Phosphokinase 76 U/L (26-192); Glucose Level 170 mg/dL (74-106); Lipase 86 U/L (73-393); Protein, Total 7.6 g/dL (6.4-8.2); Sodium Level 138 mmol/L (136-145); Troponin (Emerg Dept Use Only) < 0.02 ng/mL (0.0-0.045)
[2020-02-18] MEDS ORDERED: VANCOMYCIN 1 GM/VIAL ONE (21:30)
[2020-02-18] MEDS ORDERED: NA CHLORIDE 0.9% 250 ML ONE ×2 (21:30→23:54)
[2020-02-18] MEDS ORDERED: GENTAMICIN SULF 80 MG/2ML INJ ONE (21:30)
[2020-02-18] MEDS ORDERED: NA CHLORIDE 0.9% 100 ML IV ONE (21:30)
[2020-02-18] MEDS ORDERED: CIPROFLOXACIN HCL 500 MG TAB ONE (21:30)
[2020-02-18 21:34] LABS: Potassium 2.7 mmol/L (3.5-5.1)
[2020-02-18 22:01] LABS: Urine Blood 1+ (NEG); Urine Glucose TRACE (NEG); Urine Protein 2+ (NEG)
[2020-02-18 22:06] LABS: Urine Bacteria 20-50 /HPF (<20); Urine Culture Reflex Order NOT NEEDED; Urine Mucus 1+ /HPF (NONE SEEN)
[2020-02-18] MEDS ORDERED: KCL 20 MEQ/100 mL IVPB 20 MEQ/100 ML BAG IV ONE (22:09)
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
--- OUTSIDE RECORDS SUMMARY | 2020-02-18 22:51 | XMS REPORT | Continuity of Care Document ---
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 BILIRUBIN DIPSTICK (test NEGATIVE mg/dL NEGATIVE code = BILU) UA KETONE DIPSTICK (test code TRACE mg/dL NEGATIVE A = KETU) UA SPECIFIC GRAVITY (test 1.012 1.001-1.035 code = SGU) UA BLOOD DIPSTICK (test code Negative mg/dL NEGATIVE = BEN) UA PH DIPSTICK (test code = 6.5 5.0-8.0 MAT) UA PROTEIN DIPSTICK (test NEGATIVE mg/dL NEGATIVE code = PROU) UA UROBILINIOGEN DIPSTICK 2.0 (1+) mg/dL NEGATIVE A (test code = URO) UA NITRITE DIPSTICK (test NEGATIVE NEGATIVE code = PO) UA LEUKOCYTE ESTERASE W NEGATIVE Carina/uL NEGATIVE REFLEX (test code = LEUUR) UA WBC (test code = WBCU) 0-5 per HPF 0-5 UA RBC (test code = RBCU) 0-2 #/HPF 0-5 UA EPITHELIAL CELLS (test FEW per HPF FEW code = EPIU) UA BACTERIA (test code = NONE SEEN #/HPF NONE BACU) UA MUCUS (test code = MUCU) FEW #/LPF FEW Urine Source? Clean CatchBASIC METABOLIC [id number] 01:55:00 Test Item Value Reference Range Interpretation Comments SODIUM (test code = 135 mmol/L 136-145 L NA) POTASSIUM (test code = 3.1 mmol/L 3.5-5.1 L K) CHLORIDE (test code = 97.0 mmol/L 98-107 L CL) CARBON DIOXIDE (test 26.0 mmol/L 21-32 N code = CO2) ANION GAP (test code = 15.1 10-20 N GAP) GLUCOSE (test code = 82 mg/dL 74-106 N GLU) BLOOD UREA NITROGEN 4 mg/dL 7-18 L (test code = BUN) GLOMERULAR FILTRATION > 60 mL/min >=60 Estima burke GFR by RATE (test code = GFR) using Modified MDRD formula.Chronic kidney disease is defined as [facility] kidney damageor GFR <60 mL/min/1.73 m2 for >3 months. CREATININE (test code 0.40 mg/dL 0.55-1.02 L Note change in = CREAT) reference range due to change in reagent. BUN/CREATININE RATIO 10.0 10-20 N (test code = BUN/CREA) CALCIUM (test code = 7.7 mg/dL 8.5-10.1 L CA) HEPATIC FUNCTION [id number] 01:55:00 Test Item Value Reference Range Interpretation Comments TOTAL PROTEIN (test 6.1 gram/dL 6.4-8.2 L code = PROT) ALBUMIN (test code = 2.9 g/dL 3.4-5.0 L ALB) GLOBULIN (test code = 3.2 gram/dL 2.7-4.2 N GLOB) ALBUMIN/GLOBULIN RATIO 0.9 0.75-1.50 N (test code = A/G) BILIRUBIN TOTAL (test 1.10 mg/dL 0.0-1.0 H code = BILT) BILIRUBIN DIRECT (test 0.38 mg/dL 0.0-0.20 H code = BILD) SGOT/AST (test code = 85 IUnit/L 15-37 H AST) SGPT/ALT (test code = 35 IUnit/L 12-78 N ALT) ALKALINE PHOSPHATASE 69 IUnit/L 45-117 N Note change in TOTAL (test code = reference range due ALKP) to change in reagent. [id number] 01:55:00 Test Item Value Reference Range Interpretation Comments LIPASE (test code = LIP) 123 U/L 73.0-393.0 N HCG SERUM [id number] 01:55:00 Test Item Value Reference Range Interpretation Comments HCG SERUM QUAL (test NEGATIVE NEGATIVE This HC GQL test is NOT code = HCGQL) applicable for MALE patients.Check with nurse about probable order error.If Tumor Marker Test needed, nu rse should order test "HCG TU"(Test #550.23388)---- - BASIC METABOLIC [id number] 01:48:00 Test Item Value Reference Range Interpretation Comments SODIUM (test code = NA) 135 mmol/L 136-145 L POTASSIUM (test code = K) 3.1 mmol/L 3.5-5.1 L CHLORIDE (test code = CL) 97.0 mmol/L 98-107 L CARBON DIOXIDE (test code = CO2) mmol/L 21-32 ANION GAP (test code = GAP) 10-20 GLUCOSE (test code = GLU) mg/dL 74-106 BLOOD UREA NITROGEN (test code = mg/dL 7-18 BUN) GLOMERULAR FILTRATION RATE (test mL/min >=60 code = GFR) CREATININE (test code = CREAT) mg/dL 0.55-1.02 BUN/CREATININE RATIO (test code = 10-20 BUN/CREA) CALCIUM (test code = CA) mg/dL 8.5-10.1 HEPATIC FUNCTION [id number] 01:48:00 Test Item Value Reference Range Interpretation Comments TOTAL PROTEIN (test code = PROT) gram/dL 6.4-8.2 ALBUMIN (test code = ALB) g/dL 3.4-5.0 GLOBULIN (test code = GLOB) gram/dL 2.7-4.2 ALBUMIN/GLOBULIN RATIO (test code = 0.75-1.50 A/G) BILIRUBIN TOTAL (test code = BILT) mg/dL 0.0-1.0 BILIRUBIN DIRECT (test code = BILD) mg/dL 0.0-0.20 SGOT/AST (test code = AST) IUnit/L 15-37 SGPT/ALT (test code = ALT) IUnit/L 12-78 ALKALINE PHOSPHATASE TOTAL (test IUnit/L 45-117 code = ALKP) [id number] 01:48:00 Test Item Value Reference Range Interpretation Comments LIPASE (test code = LIP) U/L 73.0-393.0 HCG SERUM [id number] 01:48:00 Test Item Value Reference Range Interpretation Comments HCG SERUM QUAL (test NEGATIVE NEGATIVE This HC GQL test is NOT code = HCGQL) applicable for MALE patients.Check with nurse about probable order error.If Tumor Marker Test needed, nu rse should order test "HCG TU"(Test #550.88849)---- - [id number] 01:48:00 Test Item Value Reference Range Interpretation Comments MAGNESIUM (test code = MAG) 1.7 mg/dL 1.8-2.4 L BASIC METABOLIC [id number] 01:41:00 Test Item Value Reference Range Interpretation Comments SODIUM (test code = NA) mmol/L 136-145 POTASSIUM (test code = K) mmol/L 3.5-5.1 CHLORIDE (test code = CL) mmol/L 98-107 CARBON DIOXIDE (test code = CO2) mmol/L 21-32 ANION GAP (test code = GAP) 10-20 GLUCOSE (test code = GLU) mg/dL 74-106 BLOOD UREA NITROGEN (test code = BUN) mg/dL 7-18 GLOMERULAR FILTRATION RATE (test code mL/min >=60 = GFR) CREATININE (test code = CREAT) mg/dL 0.55-1.02 BUN/CREATININE RATIO (test code = 10-20 BUN/CREA) CALCIUM (test code = CA) mg/dL 8.5-10.1 HEPATIC FUNCTION [id number] 01:41:00 Test Item Value Reference Range Interpretation Comments TOTAL PROTEIN (test code = PROT) gram/dL 6.4-8.2 ALBUMIN (test code = ALB) g/dL 3.4-5.0 GLOBULIN (test code = GLOB) gram/dL 2.7-4.2 ALBUMIN/GLOBULIN RATIO (test code = 0.75-1.50 A/G) BILIRUBIN TOTAL (test code = BILT) mg/dL 0.0-1.0 BILIRUBIN DIRECT (test code = BILD) mg/dL 0.0-0.20 SGOT/AST (test code = AST) IUnit/L 15-37 SGPT/ALT (test code = ALT) IUnit/L 12-78 ALKALINE PHOSPHATASE TOTAL (test IUnit/L 45-117 code = ALKP) [id number] 01:41:00 Test Item Value Reference Range Interpretation Comments LIPASE (test code = LIP) U/L 73.0-393.0 HCG SERUM [id number] 01:41:00 Test Item Value Reference Range Interpretation Comments HCG SERUM QUAL (test NEGATIVE NEGATIVE This HC GQL test is NOT code = HCGQL) applicable for MALE patients.Check with nurse about probable order error.If Tumor Marker Test needed, nu rse should order test "HCG TU"(Test #550.93699)---- - CBC W/O [id number] 01:37:00 Test Item Value Reference Range Interpretation Comments WHITE BLOOD CELL (test code = 5.2 K/mm3 4.5-12.5 N WBC) RED BLOOD CELL (test code = 3.67 mill/mm3 3.7-5.2 L RBC) HEMOGLOBIN (test code = HGB) 9.4 gram/dL 11.5-15.5 L HEMATOCRIT (test code = HCT) 29.6 % 36.0-46.0 L MEAN CELL VOLUME (test code = 80.7 fL 80-98 N MCV) MEAN CELL HGB (test code = MCH) 25.6 picogram 27.0-33.0 L MEAN CELL HGB CONCETRATION 31.8 gram/dL 33.0-36.0 L (test code = MCHC) RED CELL DISTRIBUTION WIDTH 23.4 % 11.6-16.2 H (test code = RDW) PLATELET COUNT (test code = 153 K/mm3 150-450 N PLT) MEAN PLATELET VOLUME (test code 9.9 fL 6.7-11.0 N = MPV)
--- NOTE | 2020-02-18 22:57 | RAD REPORT ---
EXAM DESCRIPTION: RAD - Chest Single View - 02/18/2020 10:21 pm CLINICAL HISTORY: CHEST PAIN Chest pain. COMPARISON: Chest Single View dated 03/04/2019; Chest Single View dated 03/01/2019; Chest Single View d ated 10/12/2018; Chest Single View dated 06/06/2018 FINDINGS: Portable technique limits examination quality. The lungs are grossly clear. The heart is normal in size. No displaced fractures. IMPRESSION: No acute intrathoracic process suspected.
--- NOTE | 2020-02-18 23:00 | EDPHYS ---
Physician Documentation [facility] Name: Diana Watson Age: 44 yrs Sex: Female : 1975 Arrival Date: 02/18/2020 Time: 20:39 Bed 24 Private MD: ED Physician Yair Silvestre HPI: 02/17 22:54 This 44 yrs old Female presents to ER via EMS with complaints of Fever. ma2 22:54 The patient reports fever, that was measured at 102 degrees Fahrenheit. Onset: The ma2 symptoms/episode began/occurred gradually, 2 day(s) ago. Associated signs and symptoms: Pertinent positives: chest pain, dysuria, Pertinent negatives: backache, diarrhea, myalgias, runny nose, skin rash. Severity of symptoms: At their worst the symptoms were moderate in the emergency department the symptoms are unchanged. The patient has not experienced similar symptoms in the past. 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 - Social history:: Smoking status: Patient denies any tobacco usage or history of. - Family history:: not pertinent. ROS: 22:54 Constitutional: Negative for fever, chills, and weight loss. ma2 22:54 All other systems are negative. Exam: 22:54 Constitutional: This is a well developed, well nourished patient who is awake, alert, ma2 and in no acute distress. Eyes: Pupils equal round and reactive to light, extra-ocular motions intact. Lids and lashes normal. Conjunctiva and sclera are non-icteric and not injected. Cornea within normal limits. Periorbital areas with no swelling, redness, or edema. ENT: Nares patent. No nasal discharge, no septal abnormalities noted. Tympanic membranes are normal and external auditory canals are clear. Oropharynx with no redness, swelling, or masses, exudates, or evidence of obstruction, uvula midline. Mucous membranes moist. Neck: Trachea midline, no thyromegaly or masses palpated, and no cervical lymphadenopathy. Supple, full range of motion without nuchal rigidity, or vertebral point tenderness. No Meningismus. Chest/axilla: Normal chest wall appearance and motion. Nontender with no deformity. No lesions are appreciated. Cardiovascular: tachycardia and normal rhythm with a normal S1 and S2. No gallops, murmurs, or rubs. Normal PMI, no JVD. No pulse deficits. Respiratory: Lungs have equal breath sounds bilaterally, clear to auscultation and percussion. No rales, rhonchi or wheezes noted. No increased work of breathing, no retractions or nasal flaring. Abdomen/GI: Soft, non-tender, with normal bowel sounds. No distension or tympany. No guarding or rebound. No evidence of tenderness throughout. Back: No spinal tenderness. No costovertebral tenderness. Full range of motion. Skin: Warm, dry with normal turgor. Normal color with no rashes, no lesions, and no evidence of cellulitis. MS/ Extremity: Pulses equal, no cyanosis. Neurovascular intact. Full, normal range of motion. Neuro: Awake and alert, GCS 15, oriented to person, place, time, and situation. Cranial nerves II-XII grossly intact. Motor strength 5/5 in all extremities. Sensory grossly intact. Cerebellar exam normal. Normal gait. Vital Signs: 20:39 Weight 72.57 kg (R); mw2 20:39 BP 159 / 103; Pulse 130; Resp 18 S; Temp 102.4(O); Pulse Ox 100% on R/A; Weight 72.57 bb kg (R); Height 5 ft. 9 in. (175.26 cm) (R); 21:55 BP 137 / 87; Pulse 125; Resp 26; Temp 102; Pulse Ox 100% on R/A; lp1 22:30 BP 133 / 83; Pulse 123; Resp 23; Temp 101.4; Pulse Ox 100% on R/A; lp1 23:30 BP 138 / 89; Pulse 116; Resp 23; Temp 100.4; Pulse Ox 100% on R/A; lp1 02/18 00:00 BP 135 / 83; Pulse 112; Resp 17; Pulse Ox 100% on R/A; lp1 00:09 Temp 100.4(O); rv 02/17 20:39 Body Mass Index 23.63 (72.57 kg, 175.26 cm) bb MDM: 02/17 20:39 Patient medically screened. [facility] 22:54 Differential diagnosis: viral Infection, URI, bronchitis, pneumonia UTI. Data reviewed: vt2 vital signs, nurses notes. Counseling: I had a detailed discussion with the patient and/or guardian regarding: the historical points, exam findings, and any diagnostic results supporting the discharge/admit diagnosis, the presence of at least one elevated blood pressure reading (>120/80) during this emergency department visit, the need for outpatient follow up. Response to treatment: the patient's symptoms have mildly improved after treatment. 22:54 Post IV fluid administration reassessment for Sepsis: Sepsis focused reassessment [facility] complete. Focused assessment performed: February 18, 2020 at 22:57 Heart: Regular rate/rhythm. improved Lungs: noted to be clear bilaterally. Capillary refill examination performed. Capillary refill noted to be brisk. Peripheral pulse evaluation performed. Radial Peripheral pulses noted to be 3+ normal. Skin examination performed. Current patient vital signs reviewed: Yes. Neuro: Patient's neurological exam has improved from previous exam. Cardio: Cardiovascular exam improved from previous exam. Heart rate and blood pressure have improved. Respiratory: Respiratory exam improved from previous exam. Counseling: I had a detailed discussion with the patient and/or guardian regarding: the need for outpatient follow up, the need for further work-up and treatment in the hospital. ED course: dd. include infective endocarditiis vs uti and sepsis . 02/17 20:51 Order name: Urine Culture [facility] 02/17 20:51 Order name: Amylase, Serum; Complete Time: 22:25 [facility] 02/17 20:51 Order name: Basic Metabolic Panel; Complete Time: 22:25 [facility] 02/17 20:51 Order name: Blood Culture Adult (2) [facility] 02/17 20:51 Order name: CBC with Diff [facility] 02/17 20:51 Order name: Ckmb; Complete Time: 22:25 [facility] 02/17 20:51 Order name: CPK; Complete Time: 22:25 [facility] 02/17 20:51 Order name: Lactate; Complete Time: 22:25 [facility] 02/17 20:51 Order name: LFT's; Complete Time: 22:25 [facility] 02/17 20:51 Order name: Lipase; Complete Time: 22:25 [facility] 02/17 20:51 Order name: Procalcitonin; Complete Time: 22:25 [facility] 02/17 20:51 Order name: Protime (+inr); Complete Time: 22:25 [facility] 02/17 20:51 Order name: Ptt, Activated; Complete Time: 22:25 [facility] 02/17 20:51 Order name: Troponin (emerg Dept Use Only); Complete Time: 22:25 [facility] 02/17 20:51 Order name: Urine Microscopic Only; Complete Time: 22:25 [facility] 02/17 20:51 Order name: COVID-19 [facility] 02/17 20:51 Order name: Flu; Complete Time: 22:25 [facility] 02/17 20:51 Order name: Strep; Complete Time: 22:25 [facility] 02/17 21:19 Order name: CBC Smear Scan [facility] 02/17 21:42 Order name: Urine Dipstick--Ancillary (enter results); Complete Time: 22:25 [facility] 02/17 22:05 Order name: Throat Culture [facility] 02/17 23:46 Order name: CBC with Automated Diff [facility] 02/17 23:46 Order name: CBC with Automated Diff [facility] 02/17 23:46 Order name: Comprehensive Metabolic Panel [facility] 02/17 23:46 Order name: Comprehensive Metabolic Panel [facility] 02/17 23:46 Order name: Lipid Profile [facility] 02/17 23:46 Order name: Lipid Profile [facility] 02/17 23:46 Order name: Protime (+INR) [facility] 02/17 23:46 Order name: Protime (+INR) [facility] 02/17 23:46 Order name: PTT, Activated Partial Thromb [facility] 02/17 20:51 Order name: Chest Single View XRAY [facility] 02/17 20:51 Order name: Accucheck; Complete Time: 21:00 [facility] 02/17 20:51 Order name: Cardiac monitoring; Complete Time: 21: [facility] 02/17 20:51 Order name: EKG - Nurse/Tech; Complete Time: 21: [facility] 02/17 20:51 Order name: IV Saline Lock - Large Bore; Complete Time: 21: [facility] 02/17 20:51 Order name: Labs collected and sent; Complete Time: 21: [facility] 02/17 20:51 Order name: O2 Per Protocol; Complete Time: 21:00 [facility] 02/17 20:51 Order name: O2 Sat Monitoring; Complete Time: 21:01 [facility] 02/17 20:51 Order name: Document PUI#; Complete Time: 03:11 [facility] 02/17 20:51 Order name: Droplet/Contact Precautions; Complete Time: 21:51 [facility] 02/17 20:51 Order name: Notify Health Dept [phone]/ ; Complete Time: 03:11 [facility] 02/17 23:46 Order name: CONS Pharmacy Consult [facility] 02/17 23:46 Order name: Heart Healthy [facility] 02/17 23:46 Order name: Echo with Doppler [facility] 02/17 23:46 Order name: PTT, Activated Partial Thromb [facility] 02/17 23:46 Order name: Troponin I [facility] 02/17 23:46 Order name: Troponin I [facility] 02/18 00:13 Order name: Lactate Sepsis 2 HR Follow-up [facility] Administered Medications: 20:50 Drug: Tylenol 1000 mg Route: PO; 02/18 00:09 Follow up: Temp 100.4 Oral; Response: Temperature is decreased 02/17 21:00 Drug: NS 0.9% (30 ml/kg) 30 ml/kg Route: IV; Rate: bolus; Site: left antecubital; 02/18 00:10 Follow up: IV Status: Completed infusion; IV Intake: 2100ml 02/17 21:10 Drug: Ciprofloxacin 1000 mg Route: PO; rv 02/18 00:10 Follow up: Response: No adverse reaction 02/17 21:10 Drug: Zofran (Ondansetron) 4 mg Route: IVP; Site: left antecubital; rv 02/18 00:10 Follow up: Response: No adverse reaction 02/17 21:15 Drug: vancoMYCIN 1 grams Route: IVPB; Infused Over: 2 hrs; Site: left antecubital; 02/18 00:09 Follow up: IV Status: Completed infusion; IV Intake: 250ml 02/17 21:15 Drug: Gentamicin 2 mg/kg Route: IVPB; Infused Over: 30 mins; Site: left antecubital; rv 02/18 00:10 Follow up: IV Status: Completed infusion; IV Intake: 100ml rv 02/17 23:55 Drug: Potassium Chloride 20 mEq Route: IV; Rate: calculated rate; Site: left rv antecubital; 02/18 00:26 Follow up: IV Status: Infusion continued upon admission rv 02/17 23:55 Drug: morphine 4 mg Route: IVP; Site: left antecubital; rv 02/18 00:26 Follow up: Response: No adverse reaction; Pain is decreased rv 02/17 23:55 Drug: Zofran (Ondansetron) 4 mg Route: IVP; Site: left antecubital; rv 02/18 00:26 Follow up: Response: No adverse reaction rv Disposition: 02/18/20 22:59 Hospitalization ordered by Yair Sprague for Inpatient Admission. Preliminary diagnosis are Severe sepsis without septic shock, Cystitis, unspecified without hematuria, Chest pain, unspecified, Tachycardia, unspecified, Hypokalemia. - Bed requested for Telemetry/MedSurg (Inpatient). - Status is Inpatient Admission. sv - Condition is Stable. - Problem is new. - Symptoms are unchanged. Signatures: Dispatcher [employer] EDMS Rosamaria Connor RN RN sv Hanane Waterman RN RN bb Garcia, Cindy, RN RN Sachin Rojas RN RN Yair Russell MD MD ma2 Vicente, Ronaldo, RN RN rv Corrections: (The following items were deleted from the chart) 00:20 02/17 22:59 Hospitalization Ordered by Yair Sprague MD for Inpatient Admission. cg Preliminary diagnosis is Severe sepsis without septic shock; Cystitis, unspecified without hematuria; Chest pain, unspecified; Tachycardia, unspecified; Hypokalemia. Bed requested for Telemetry/MedSurg (Inpatient). Status is Inpatient Admission. Condition is Stable. Problem is new. Symptoms are unchanged. vt2 02/18 10:27 00:20 02/18/2020 22:59 Hospitalization Ordered by Yair Sprague MD for Inpatient ja1 Admission. Preliminary diagnosis is Severe sepsis without septic shock; Cystitis, unspecified without hematuria; Chest pain, unspecified; Tachycardia, unspecified; Hypokalemia. Bed requested for [facility] ER HOLD. Status is Inpatient Admission. Condition is Stable. Problem is new. Symptoms are unchanged. cg 10:54 10:27 02/18/2020 22:59 Hospitalization Ordered by Yair Sprague MD for Inpatient sv Admission. Preliminary diagnosis is Severe sepsis without septic shock; Cystitis, unspecified without hematuria; Chest pain, unspecified; Tachycardia, unspecified; Hypokalemia. Bed requested for Telemetry/MedSurg (Inpatient). Status is Inpatient Admission. Condition is Stable. Problem is new. Symptoms are unchanged. ja1
--- NOTE | 2020-02-18 23:00 | ER ---
Nurse's Notes [facility] Name: Diana Watson Age: 44 yrs Sex: Female : 1975 Arrival Date: 02/18/2020 Time: 20:39 Bed 24 Private MD: Diagnosis: Severe sepsis without septic shock;Cystitis, unspecified without hematuria;Chest pain, unspecified;Tachycardia, unspecified;Hypokalemia Presentation: 02/17 20:38 Note Code sepsis 700 called. bb 20:39 Chief complaint: EMS states: they were toned out for c/o pt with fever and possible bb endocarditis due to poor dentition and mitral valve prolapse. Coronavirus screen: Patient reports a measured and/or subjective temperature greater than 100.4F. Ebola Screen: No symptoms or risks identified at this time. Initial Sepsis Screen: Does the patient meet any 2 criteria? Temp <36.0*C (96.8*F)) or > 38.3*C (100.9*F). HR > 90 bpm. Yes Does the patient have a suspected source of infection? Yes: S/S of meningitis or endocarditis If YES to both, name of provider notified: Yair Silvestre MD. Risk Assessment: Do you want to hurt yourself or someone else? Patient reports no desire to harm self or others. Onset of symptoms was February 18, 2020. Care prior to arrival: Medication(s) given: Normal saline infusion, 500 mL, IV initiated. 18 GA, in the left antecubital area. 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 - Social history:: Smoking status: Patient denies any tobacco usage or history of. - Family history:: not pertinent. Screenin:52 Abuse screen: Denies threats or abuse. Denies injuries from another. Nutritional rv screening: No deficits noted. Tuberculosis screening: No symptoms or risk factors identified. Fall Risk None identified. Assessment: 21:00 General: Appears uncomfortable, Behavior is calm, cooperative. rv 21:00 Pain: Complains of pain in chest. Neuro: Level of Consciousness is awake, alert, obeys rv commands, Oriented to person, place, time, situation. Cardiovascular: Patient's skin is warm and dry. Rhythm is sinus tachycardia. Respiratory: Airway is patent Breath sounds are clear bilaterally. GI: Reports nausea, vomiting. : Urine is clear, Reports burning with urination, since YESTERDAY. Derm: Skin is intact. 22:56 Reassessment: Dr. Sprague at bedside. lp1 Vital Signs: 20:39 Weight 72.57 kg (R); mw2 20:39 BP 159 / 103; Pulse 130; Resp 18 S; Temp 102.4(O); Pulse Ox 100% on R/A; Weight 72.57 bb kg (R); Height 5 ft. 9 in. (175.26 cm) (R); 21:55 BP 137 / 87; Pulse 125; Resp 26; Temp 102; Pulse Ox 100% on R/A; lp1 22:30 BP 133 / 83; Pulse 123; Resp 23; Temp 101.4; Pulse Ox 100% on R/A; lp1 23:30 BP 138 / 89; Pulse 116; Resp 23; Temp 100.4; Pulse Ox 100% on R/A; lp1 02/18 00:00 BP 135 / 83; Pulse 112; Resp 17; Pulse Ox 100% on R/A; lp1 00:09 Temp 100.4(O); rv 02/17 20:39 Body Mass Index 23.63 (72.57 kg, 175.26 cm) bb ED Course: 02/17 20:39 Patient arrived in ED. cf2 20:39 Yair Silvestre MD is Attending Physician. ma2 20:41 Porter Yoder RN is Primary Nurse. rv 20:42 Triage completed. bb 20:45 Arm band placed on Patient placed in an exam room, on a stretcher, on security monitor, bb on pulse oximetry. 20:50 Maintain EMS IV. Dressing intact. Good blood return noted. Site clean \T\ dry. Gauge \T\ rv site: g18 LEFT AC. IV is patent, with fluids infusing freely, with good blood return. 20:55 Initial lab(s) drawn, by me, sent to lab. First set of blood cultures drawn by lab rv staff. EKG done, by ED staff, reviewed by Yair Silvestre MD. 21:55 Patient has correct armband on for positive identification. Placed in gown. Bed in low rv position. Call light in reach. Side rails up X2. ekg monitor on. Pulse ox on. NIBP on. 22:21 Chest Single View XRAY In Process Unspecified. EDMS 22:59 Yair Sprague MD is Hospitalizing Provider. nm2 02/18 00:25 No provider procedures requiring assistance completed. IV is patent, with fluids rv infusing freely, with good blood return, Patient admitted, IV remains in place. Administered Medications: 02/17 20:50 Drug: Tylenol 1000 mg Route: PO; 02/18 00:09 Follow up: Temp 100.4 Oral; Response: Temperature is decreased 02/17 21:00 Drug: NS 0.9% (30 ml/kg) 30 ml/kg Route: IV; Rate: bolus; Site: left antecubital; 02/18 00:10 Follow up: IV Status: Completed infusion; IV Intake: 2100ml 02/17 21:10 Drug: Ciprofloxacin 1000 mg Route: PO; 02/18 00:10 Follow up: Response: No adverse reaction 02/17 21:10 Drug: Zofran (Ondansetron) 4 mg Route: IVP; Site: left antecubital; 02/18 00:10 Follow up: Response: No adverse reaction 02/17 21:15 Drug: vancoMYCIN 1 grams Route: IVPB; Infused Over: 2 hrs; Site: left antecubital; 02/18 00:09 Follow up: IV Status: Completed infusion; IV Intake: 250ml rv 02/17 21:15 Drug: Gentamicin 2 mg/kg Route: IVPB; Infused Over: 30 mins; Site: left antecubital; 02/18 00:10 Follow up: IV Status: Completed infusion; IV Intake: 100ml 02/17 23:55 Drug: Potassium Chloride 20 mEq Route: IV; Rate: calculated rate; Site: left rv antecubital; 02/18 00:26 Follow up: IV Status: Infusion continued upon admission rv 02/17 23:55 Drug: morphine 4 mg Route: IVP; Site: left antecubital; rv 02/18 00:26 Follow up: Response: No adverse reaction; Pain is decreased rv 02/17 23:55 Drug: Zofran (Ondansetron) 4 mg Route: IVP; Site: left antecubital; rv 02/18 00:26 Follow up: Response: No adverse reaction rv Intake: 00:09 IV: 250ml; Total: 250ml. rv 00:10 IV: 2100ml; Total: 2350ml. rv 00:10 IV: 100ml; Total: 2450ml. rv Outcome: 02/17 22:59 Decision to Hospitalize by Provider. ma2 02/18 00:25 Admitted to ER Hold. Please see [facility] for further documentation. rv Condition: good Instructed on the need for admit. 10:54 Patient left the ED. sv Signatures: Dispatcher [employer] Rosamaria Saini RN RN sv Ballard, Brenda, RN RN bb Pena, Laura, RN RN [email or web address] Yair Silvestre MD MD nm2 Ammon Castillo 2 Porter Yoder RN RN Allen Aleman 2
[2020-02-18 23:04] LABS: Anisocytosis 1+; Blood Morphology Comment NOTED (NOT SEEN); Platelet Estimate ADEQ; White Blood Cell Scan OK
[2020-02-18] MEDS: NA CHLORIDE 0.9% 1,000 ML IV SCH (23:45)
[2020-02-18] MEDS ORDERED: MORPHINE 4 MG/ML SYR ONE (23:54)
[2020-02-19 00:49] VITALS: BMI 23.6
[2020-02-19] MEDS: MORPHINE 2 MG/ML SYR IV PRN ×5 (02:29→20:52)
[2020-02-19] MEDS: ONDANSETRON 4 MG/2 ML VIAL IV PRN ×2 (02:30→06:24)
[2020-02-19] MEDS ORDERED: ONDANSETRON 4 MG/2 ML VIAL ONE ×3 (02:35→10:50)
[2020-02-19] MEDS ORDERED: MORPHINE 2 MG/ML SYR ONE ×2 (02:35→06:18)
[2020-02-19 04:34] LABS: Absolute Lymphocytes (CBC) 0.4 K/uL (0.7-4.9); Basophils % 0.4 % (0-1.3); Hematocrit 27.1 % (36.0-45.0); Lymphocytes % 8.4 % (15.3-44.8); MPV 7.1 fL (7.6-11.3)
[2020-02-19 04:37] LABS: Protime INR 1.23
[2020-02-19 04:52] LABS: ALT/SGPT 29 U/L (12-78); AST/SGOT 46 U/L (15-37); Albumin 2.7 g/dL (3.4-5.0); Alkaline Phosphatase 53 U/L (45-117); BUN Blood Urea Nitrogen 5 mg/dL (7-18); Bicarbonate 27 mmol/L (21-32); Bilirubin Total 0.4 mg/dL (0.2-1.0); Glucose Level 132 mg/dL (74-106); HDL Cholesterol 81 mg/dL (40-60); LDL Cholesterol, Calculated 78 (<130); Protein, Total 6.5 g/dL (6.4-8.2); Sodium Level 138 mmol/L (136-145)
[2020-02-19 04:54] LABS: Potassium 2.8 mmol/L (3.5-5.1)
[2020-02-19] MEDS: ACETAMINOPHEN 500 MG TAB PO PRN ×3 (05:12→18:08)
[2020-02-19] MEDS ORDERED: ACETAMINOPHEN 500 MG TAB ONE (05:18)
[2020-02-19] MEDS ORDERED: POTASSIUM CL 40 MEQ in NA CHLORIDE 0.9% 500 ML IV SCH ×2 (07:00→21:00)
[2020-02-19] MEDS ORDERED: chlordiazePOXIDE HCl 5 MG CAP PO PRN (07:07)
[2020-02-19] MEDS ORDERED: METOPROLOL XL 100 MG TAB PO SCH ×2 (07:30→09:00)
[2020-02-19] MEDS ORDERED: PREGABALIN 50 MG CAP ONE (08:17)
[2020-02-19] MEDS ORDERED: chlordiazePOXIDE HCl 5 MG CAP PO ONE (08:17)
[2020-02-19] MEDS ORDERED: FOLIC ACID 1 MG TABLET ONE (08:17)
[2020-02-19] MEDS ORDERED: Levofloxacin500mg IV 500 MG/100 ML BAG IV ONE (08:18)
[2020-02-19] MEDS ORDERED: NA CHLORIDE 0.9% 1,000 ML ONE (08:18)
[2020-02-19] MEDS: Levofloxacin500mg IV 500 MG/100 ML BAG IV SCH (08:39)
[2020-02-19] MEDS ORDERED: PROMETHAZINE INJ 25 MG/ML AMP IV ONE (08:40)
[2020-02-19] MEDS ORDERED: PROMETHAZINE INJ 25 MG/ML AMP ONE (08:40)
[2020-02-19] MEDS ORDERED: AMLODIPINE 5 MG TAB PO SCH (09:00)
[2020-02-19] MEDS ORDERED: FOLIC ACID 1 MG, MULTIVITAMINS INJ 10 ML, THIAMINE HCL 100 MG in NA CHLORIDE 0.9% 1,000 ML IV SCH (09:00)
[2020-02-19] MEDS: NA CHLORIDE 0.9% 1,000 ML IV SCH ×2 (09:45→20:15)
[2020-02-19] MEDS: PREGABALIN 50 MG CAP PO SCH ×2 (10:06→20:15)
[2020-02-19] MEDS: chlordiazePOXIDE HCl 5 MG CAP PO SCH ×4 (10:06→20:15)
[2020-02-19] MEDS: BUPROPION HCL XL 150 MG TAB PO SCH (10:07)
--- NOTE | 2020-02-19 10:49 | P.HP ---
Certification for Inpatient Patient admitted to: Inpatient With expected LOS: >2 Midnights Patient will require the following post-hospital care: None Practitioner: I am a practitioner with admitting privileges, knowledge of patient current condition, hospital course, and medical plan of care. Services: Services provided to patient in accordance with Admission requirements found in Title 42 Section 412.3 of the Code of Federal Regulations Patient History Date of Service: 02/18/20 Reason for admission: SEPSIS SECONDARY TO UTI; DENTAL MARCUS; RULE OUT ENDOCARDITIS History of Present Illness: PATIENT IS A 44-YEAR-OLD FEMALE WHO CAME TO THE HOSPITAL WITH FEVER, SHAKES, AND CHILLS. SHE WAS REALLY LETHARGIC AND NOT FEELING LIKE HERSELF. SHE FELT SH ORT OF BREATH WELL. IN THE EMERGENCY ROOM SHE WAS FOUND HAVE A TEMP OF A 102.5. SHE WAS TACHYCARDIC WITH A HEART RATE OF 130S. HER WORKUP REVEALED A SEVERE URINARY TRACT INFECTION. THERE WAS ALSO CONCERN BECAUSE OF DENTAL CARIES THAT THERE MAY BE A POSSIBILITY OF ENDOCARDITIS. BLOOD CULTURE X2 HAVE ALSO BEEN OBTAINED. WILL CHECK A SED RATE. AT THIS TIME, PATIENT WILL BE ADMITTED TO THE HOSPITAL FOR FURTHER WORKUP. Allergies cefazolin sodium [From Ancef] Allergy (Intermediate, Verified 04/10/15 21:31) Rash Home Medications: Metoprolol Succinate [Toprol Xl*] 100 mg PO BID #180 tab 10/14/18 Amlodipine [Norvasc*] 5 mg PO 03/02/19 Bupropion HCl [Bupropion Xl] 150 mg PO DAILY 03/02/19 Pregabalin [Lyrica] 50 mg PO BID #60 cap 03/03/19 Chlordiazepoxide HCl [Librium] 10 mg PO BID PRN #20 capsule 03/08/19 - Past Medical/Surgical History Diabetic: No -: HTN -: anxiety -: depression -: mitral valve prolapse -: Hypokalemia -: chronic alcohol abuse -: appendectomy -: cholecystectomy -: endometrial ablation - Family History Father Medical History: Heart disease, Hypertension Notes: had triple bypass Mother Medical History: Heart disease, Hypertension, Diabetes Notes: ENDOCARDITIS Sister Medical History: Hypertension, Kidney disease Notes: Also had a sister pass from GI disease - Social History Smoking Status: Smoker current status UNK Alcohol use: Yes CD- Drugs: No Place of Residence: Home Review of Systems 10-point ROS is otherwise unremarkable Physical Examination - Vital Signs Temperature: 98.8 F Blood Pressure: 138/92 Pulse: 95 Respirations: 18 Pulse Ox (%): 97 - Physical Exam General: Alert, In no apparent distress, Oriented x3 HEENT: Atraumatic, PERRLA, Mucous membr. moist/pink, EOMI, Sclerae nonicteric Neck: Supple, 2+ carotid pulse no bruit, No LAD, Without JVD or thyroid abnormality Respiratory: Clear to auscultation bilaterally, Normal air movement Cardiovascular: Regular rate/rhythm, Normal S1 S2, Systolic murmur Gastrointestinal: Normal bowel sounds, Soft and benign, Non-distended, No tenderness Musculoskeletal: No clubbing, No swelling, No tenderness Integumentary: No rashes Neurological: Normal gait, Normal speech, Normal strength at 5/5 x4 extr, Normal tone, Sensation intact, Cranial nerves 3-12 intact, Normal affect Lymphatics: No axilla or inguinal lymphadenopathy - Studies Laboratory Data (last 24 hrs) 02/18/20 20:40: PT 13.1 H, INR 1.11, APTT 27.9 02/18/20 20:40: WBC 6.4, Hgb 10.3 L, Hct 31.9 L, Plt Count 106 L 02/18/20 20:40: Sodium 138, Potassium 2.7 L*, BUN 6 L, Creatinine 0.60, Glucose 170 H, Total Bilirubin 0.4, AST 28, ALT 28, Alkaline Phosphatase 60, Amylase 99, Lipase 86 Microbiology Data (last 24 hrs): 02/18/20 21:15 Nasopharnyx Influenza Type A Antigen Screen - Final 02/18/20 21:15 Nasopharnyx Influenza Type B Antigen Screen - Final 02/18/20 21:15 Throat Group A Streptococcus Rapid Screen - Final Assessment & Plan - Problems (Diagnosis) (1) Sepsis Current Visit: Yes Status: Acute (2) Dental caries Current Visit: Yes Status: Acute (3) Endocarditis Current Visit: Yes Status: Acute (4) Urinary tract infectious disease Onset Date: 04/14/15 Current Visit: No Status: Acute (5) Alcohol abuse Onset Date: 06/01/17 Current Visit: No Status: Chronic - Plan PLAN: 1. IV ANTIBIOTICS AND IV HYDRATION 2. DELIRIUM TREMENS PROPHYLAXIS 3. ECHOCARDIOGRAM 4. BLOOD CULTURES 5. SED RATE 6. MONITOR VITALS 7. PATIENT IS A FULL CODE 8. WILL START ANTIDEPRESSANT PATIENT HAS HAD EMOTIONAL TRAUMA. HER HAS BEEN ON FAITHFUL TO HER AND THIS HAS LED TO HER BEING DEPRESSED. 9. GI DVT PROPHYLAXIS Discharge Plan: Home Plan to discharge in: Greater than 2 days - Advance Directives Does patient have a Living Will: No Does patient have a Durable POA for Healthcare: No - Code Status/Comfort Care Code Status Assessed: Yes Code Status: Full Code Critical Care: No Time Spent Managing PTS Care (In Minutes): 45
--- NOTE | 2020-02-19 10:50 | P.PN ---
Subjective Date of Service: 02/19/20 PATIENT IS DOING BETTER HEMODYNAMICALLY. ECHOCARDIOGRAM IS PENDING. CONTINUE WITH IV ANTIBIOTIC COVERAGE. Review of Systems 10-point ROS is otherwise unremarkable Physical Examination - Vital Signs Temperature: 98.8 F Blood Pressure: 138/92 Pulse: 95 Respirations: 18 Pulse Ox (%): 97 - Physical Exam General: Alert, In no apparent distress, Oriented x3 Respiratory: Clear to auscultation bilaterally, Normal air movement Cardiovascular: Regular rate/rhythm, Normal S1 S2, Systolic murmur Gastrointestinal: Normal bowel sounds, Soft and benign, Non-distended, No tenderness Musculoskeletal: No clubbing, No swelling, No tenderness Integumentary: No rashes Neurological: Normal speech, Normal tone, Normal affect - Studies Laboratory Data (last 24 hrs) 02/18/20 20:40: PT 13.1 H, INR 1.11, APTT 27.9 02/18/20 20:40: WBC 6.4, Hgb 10.3 L, Hct 31.9 L, Plt Count 106 L 02/18/20 20:40: Sodium 138, Potassium 2.7 L*, BUN 6 L, Creatinine 0.60, Glucose 170 H, Total Bilirubin 0.4, AST 28, ALT 28, Alkaline Phosphatase 60, Amylase 99, Lipase 86 Microbiology Data (last 24 hrs): 02/18/20 21:15 Nasopharnyx Influenza Type A Antigen Screen - Final 02/18/20 21:15 Nasopharnyx Influenza Type B Antigen Screen - Final 02/18/20 21:15 Throat Group A Streptococcus Rapid Screen - Final Medications List Reviewed: Yes Assessment & Plan - Problems (Diagnosis) (1) Sepsis Current Visit: Yes Status: Acute (2) Dental caries Current Visit: Yes Status: Acute (3) Endocarditis Current Visit: Yes Status: Acute (4) Urinary tract infectious disease Onset Date: 04/14/15 Current Visit: No Status: Acute (5) Alcohol abuse Onset Date: 06/01/17 Current Visit: No Status: Chronic - Plan PLAN: CONTINUE WITH PLAN OF CARE MENTIONED BELOW 1. IV ANTIBIOTICS AND IV HYDRATION 2. DELIRIUM TREMENS PROPHYLAXIS 3. ECHOCARDIOGRAM PENDING 4. BLOOD CULTURES 5. SED RATE 6. MONITOR VITALS 7. PATIENT IS A FULL CODE 8. WILL START ANTIDEPRESSANT PATIENT HAS HAD EMOTIONAL TRAUMA. HER HAS BEEN ON FAITHFUL TO HER AND THIS HAS LED TO HER BEING DEPRESSED. 9. GI DVT PROPHYLAXIS Discharge Plan: Home - Advance Directives Does patient have a Living Will: No Does patient have a Durable POA for Healthcare: No - Code Status/Comfort Care Code Status: Full Code
[2020-02-19] MEDS: PROMETHAZINE INJ 25 MG/ML AMP IV PRN ×3 (11:41→20:52)
[2020-02-19] MEDS ORDERED: MAGNES/ALUMIN/SIMET 30ML UCUP PO PRN (13:58)
[2020-02-19] MEDS: PANTOPRAZOLE 40MG TABLET PO SCH (14:08)
[2020-02-19] MEDS: METOPROLOL XL 50 MG TAB PO SCH (17:04)
[2020-02-19] MEDS ORDERED: POTASSIUM CL SA 10 MEQ TAB PO ONE ×2 (20:11→20:23)
[2020-02-19] MEDS ORDERED: ACETAMINOPHEN 500 MG TAB PO ONE (20:53)
[2020-02-20] MEDS: chlordiazePOXIDE HCl 5 MG CAP PO SCH ×3 (00:31→07:56)
[2020-02-20] MEDS: MORPHINE 2 MG/ML SYR IV PRN ×4 (00:55→23:06)
[2020-02-20] MEDS: PROMETHAZINE INJ 25 MG/ML AMP IV PRN ×4 (00:55→22:08)
[2020-02-20] MEDS: ACETAMINOPHEN 500 MG TAB PO PRN (03:38)
[2020-02-20] MEDS: NA CHLORIDE 0.9% 1,000 ML IV SCH ×3 (04:46→20:34)
[2020-02-20] MEDS: METOPROLOL XL 50 MG TAB PO SCH ×2 (04:47→17:30)
[2020-02-20] MEDS: PANTOPRAZOLE 40MG TABLET PO SCH (04:47)
[2020-02-20] MEDS ORDERED: KETOROLAC 30 MG/ML INJ IV ONE (05:17)
[2020-02-20] MEDS ORDERED: HYDROCORTISONE SUC 100 MG INJ IV ONE (06:22)
[2020-02-20] MEDS ORDERED: NA CHLORIDE 0.9% 1,000 ML IV ONE (06:22)
[2020-02-20 06:27] LABS: BUN Blood Urea Nitrogen 5 mg/dL (7-18); Bicarbonate 26 mmol/L (21-32); Glucose Level 123 mg/dL (74-106); Potassium 3.1 mmol/L (3.5-5.1); Sodium Level 138 mmol/L (136-145)
[2020-02-20] MEDS ORDERED: WATER FOR INJ,STERILE 10 ML ONE (06:58)
[2020-02-20] MEDS: Levofloxacin500mg IV 500 MG/100 ML BAG IV SCH (07:56)
[2020-02-20] MEDS: BUPROPION HCL XL 150 MG TAB PO SCH (07:56)
[2020-02-20] MEDS: PREGABALIN 50 MG CAP PO SCH ×2 (07:57→20:34)
--- NOTE | 2020-02-20 08:45 | P.PN ---
Subjective Date of Service: 02/20/20 STILL FEBRILE; BLOOD CX POSITIVE GNR; ECHOCARDIOGRAM IS PENDING. CONTINUE WITH IV ANTIBIOTIC COVERAGE-ADD MERREM. Physical Examination - Vital Signs Temperature: 104 F Blood Pressure: 161/101 Pulse: 113 Respirations: 16 Pulse Ox (%): 95 - Studies Medications List Reviewed: Yes Assessment & Plan - Problems (Diagnosis) (1) Sepsis Current Visit: Yes Status: Acute (2) Dental caries Current Visit: Yes Status: Acute (3) Endocarditis Current Visit: Yes Status: Acute (4) Urinary tract infectious disease Onset Date: 04/14/15 Current Visit: No Status: Acute (5) Alcohol abuse Onset Date: 06/01/17 Current Visit: No Status: Chronic - Plan PLAN: CONTINUE WITH PLAN OF CARE MENTIONED BELOW 1. IV ANTIBIOTICS AND IV HYDRATION 2. DELIRIUM TREMENS PROPHYLAXIS 3. ECHOCARDIOGRAM PENDING 4. BLOOD CULTURES 5. SED RATE 6. MONITOR VITALS 7. PATIENT IS A FULL CODE 8. WILL START ANTIDEPRESSANT PATIENT HAS HAD EMOTIONAL TRAUMA. HER HAS BEEN ON FAITHFUL TO HER AND THIS HAS LED TO HER BEING DEPRESSED. 9. GI DVT PROPHYLAXIS - Advance Directives Does patient have a Living Will: No Does patient have a Durable POA for Healthcare: No - Code Status/Comfort Care Code Status: Full Code
[2020-02-20] MEDS ORDERED: NA CHLORIDE 0.9% 500 ML IV ONE (08:47)
[2020-02-20] MEDS ORDERED: Meropenem 1000 MG/VIAL IV SCH (09:00)
[2020-02-20] MEDS: IBUPROFEN 200 MG TAB PO SCH ×2 (09:41→16:20)
[2020-02-20] MEDS: Meropenem 1,000 MG in NA CHLORIDE 0.9% 100 ML IV SCH ×2 (09:44→16:21)
[2020-02-20 11:20] LABS: Absolute Lymphocytes (CBC) 0.3 K/uL (0.7-4.9); Basophils % 0.3 % (0-1.3); Hematocrit 34.7 % (36.0-45.0); Lymphocytes % 4.2 % (15.3-44.8); MPV 8.7 fL (7.6-11.3); RBC Red Blood Cell Count 4.39 M/uL (3.86-4.86)
[2020-02-20 11:46] LABS: ALT/SGPT 30 U/L (12-78); AST/SGOT 55 U/L (15-37); Albumin 2.5 g/dL (3.4-5.0); Alkaline Phosphatase 52 U/L (45-117); BUN Blood Urea Nitrogen 5 mg/dL (7-18); Bicarbonate 25 mmol/L (21-32); Bilirubin Total 0.3 mg/dL (0.2-1.0); Glucose Level 167 mg/dL (74-106); NT PRO-BNP 4656 pg/mL (<125); Phosphorus 1.1 mg/dL (2.5-4.9); Potassium 3.4 mmol/L (3.5-5.1); Protein, Total 6.7 g/dL (6.4-8.2); Sodium Level 140 mmol/L (136-145)
[2020-02-20 11:51] LABS: Magnesium 1.2 mg/dL (1.8-2.4)
[2020-02-20] MEDS ORDERED: MAGNESIUM SULFATE 1 gm IVPB 1 GM/100 ML BAG IV ONE (12:07)
[2020-02-20] MEDS: ACETAMINOPHEN 500 MG TAB PO SCH ×2 (12:30→18:48)
[2020-02-20] MEDS ORDERED: POTASSIUM CL 40 MEQ in NA CHLORIDE 0.9% 500 ML IV SCH (13:00)
[2020-02-20 14:08] LABS: Anisocytosis 2+; Blood Morphology Comment NOTED (NOT SEEN); Platelet Estimate DECR; White Blood Cell Scan OK
--- NOTE | 2020-02-20 17:37 | RAD REPORT ---
EXAM DESCRIPTION: CT - Thorax Wo Con - 02/20/2020 4:53 pm CLINICAL HISTORY: fever COMPARISON: Chest For Pe Angio dated 03/05/2019; Chest Single View dated 02/18/2020 TECHNIQUE: Axial 5 mm thick images of the chest were obtained without IV contrast. All CT scans are performed using dose optimization technique as appropriate and may include automated exposure control or mA/KV adjustment according to patient size. FINDINGS: Right upper lobe is clear. Minimal amount of airspace opacification is seen in the perihil ar right middle lobe. More prominent airspace opacification is present in the right lower lobe. Areas of consolidation are seen around the inferior medial right lower lobe bronchi. Consolidation is pres ent in much of the central left lower lobe with air bronchogram formation. Airspace opacification is present through the lingula and midportion of the left upper lobe. Lung parenchymal opacification ten ds to be more central than peripheral. There is no cavitation or calcification component. Small bilat eral pleural effusions are present. There is a small focus of tenting of the pleura in the medial pos terior right lung field. No pneumothorax. No abnormal mediastinal or hilar masses or lymphadenopathy seen. Aorta and pulmonary arterial tree as sessment is limited on a noncontrast study. The enlarged ascending aorta matches the February 2019 stud y. No pericardial thickening or effusion. No endobronchial lesions. No chest wall mass or abnormal axillary lymphadenopathy. IMPRESSION: Bilateral pneumonia pattern is present most pronounced in the left lower lobe. Patient h as small bilateral pleural effusions. No cavitation or suspicious mass component. No significant lymphadenopathy. In the current clinical environment, COVID-19 pneumonia would be a possibility and needs correlation with testing. The pneumonia pattern is not the most common presentation for COVID-19 pneumonia. A non COVID bacterial pneumonia is favored.
[2020-02-20] MEDS ORDERED: Magnesium Sulfate 2gm IVPB 2 G/50 ML BAG IV ONE (22:50)
[2020-02-20] MEDS: POTASSIUM PHOS 30 MM in NA CHLORIDE 0.9% 500 ML IV ONE ×2 (22:50→23:31)
[2020-02-20] MEDS ORDERED: NA CHLORIDE 0.9% 0 ML ONE (23:14)
[2020-02-20] MEDS: POTASSIUM PHOS IN 0.9 % NACL 15 MMOL/250 ML BAG IV ONE ×2 (23:18)
[2020-02-21] MEDS: NA CHLORIDE 0.9% 1,000 ML IV SCH (01:45)
[2020-02-21] MEDS: Meropenem 1,000 MG in NA CHLORIDE 0.9% 100 ML IV SCH ×3 (01:49→17:58)
[2020-02-21] MEDS: ACETAMINOPHEN 500 MG TAB PO SCH ×4 (02:20→17:54)
[2020-02-21] MEDS: ONDANSETRON 4 MG/2 ML VIAL IV PRN (02:20)
[2020-02-21] MEDS: IBUPROFEN 200 MG TAB PO SCH (04:59)
[2020-02-21] MEDS: METOPROLOL XL 50 MG TAB PO SCH ×2 (05:01→17:55)
[2020-02-21] MEDS ORDERED: POTASSIUM PHOS IN 0.9 % NACL 15 MMOL/250 ML BAG IV ONE (05:06)
[2020-02-21] MEDS: PANTOPRAZOLE 40MG TABLET PO SCH (05:25)
[2020-02-21] MEDS ORDERED: FUROSEMIDE 40 MG/4 ML VIAL IV ONE (07:04)
[2020-02-21] MEDS ORDERED: ALBUMIN HUMAN 25% 50 ML IV ONE (07:07)
[2020-02-21 07:24] LABS: Absolute Lymphocytes (CBC) 1.3 K/uL (0.7-4.9); Basophils % 0.6 % (0-1.3); Hematocrit 28.5 % (36.0-45.0); Lymphocytes % 23.5 % (15.3-44.8); MPV 8.8 fL (7.6-11.3); RBC Red Blood Cell Count 3.64 M/uL (3.86-4.86)
[2020-02-21 07:30] LABS: BUN Blood Urea Nitrogen 5 mg/dL (7-18); Bicarbonate 24 mmol/L (21-32); Glucose Level 113 mg/dL (74-106); Magnesium 2.2 mg/dL (1.8-2.4); NT PRO-BNP 7413 pg/mL (<125); Phosphorus 2.6 mg/dL (2.5-4.9); Potassium 3.4 mmol/L (3.5-5.1); Sodium Level 139 mmol/L (136-145)
--- NOTE | 2020-02-21 07:38 | EKG ---
Test Date: 2020-02-18 Test Time: 20:52:58 Refrigeration Operator: RV MEASUREMENT RESULTS: Intervals: Rate: 122 SD: 172 QRSD: 86 QT: 304 QTc: 433 [place]: P: 69 SD: 172 QRS: 36 T: 69 INTERPRETIVE STATEMENTS: Sinus tachycardia Nonspecific ST abnormality Abnormal ECG Compared to ECG 03/01/2019 14:52:55 ST (T wave) deviation now present Electronically Signed On 02-21-20 07:33:07 CDT by Demond Henry
[2020-02-21] MEDS: BUPROPION HCL XL 150 MG TAB PO SCH (08:28)
[2020-02-21] MEDS: MORPHINE 2 MG/ML SYR IV PRN ×2 (08:29→14:10)
[2020-02-21] MEDS: PREGABALIN 50 MG CAP PO SCH ×2 (08:33→20:08)
[2020-02-21 09:10] LABS: Anisocytosis 1+; Blood Morphology Comment NOTED (NOT SEEN); Platelet Estimate DECR
--- NOTE | 2020-02-21 09:20 | P.PN ---
Subjective Date of Service: 02/21/20 Patient states she feels better but she is more hypoxic. Had gone by her room and heard the nurse talking about her being hypoxic upon ambulation. I was not aware that her oxygen level was running low. CT of the chest was done yesterday which showed an infiltrate. Patient looks to be in congestive heart failure. Patient has significant JVP. I will diurese her and broaden antibiotic coverage. We will get echocardiogram as well. Labs are pending. Hopefully after diuresing patient her symptoms should improve. Monitor her closely. Continue on Librium and she has a history of alcohol abuse. Also monitor ammonia level. COVID-19 pending Review of Systems 10-point ROS is otherwise unremarkable Physical Examination - Vital Signs Temperature: 99 F Blood Pressure: 143/94 Pulse: 101 Respirations: 28 Pulse Ox (%): 92 - Physical Exam General: Alert, In no apparent distress, Oriented x3 Neck: JVD distended Respiratory: Diminished, Crackles/rales Cardiovascular: Regular rate/rhythm, Normal S1 S2, Systolic murmur Gastrointestinal: Normal bowel sounds, Soft and benign, Non-distended, No tenderness Musculoskeletal: No tenderness Integumentary: No rashes Neurological: Normal speech, Normal tone, Normal affect Lymphatics: No axilla or inguinal lymphadenopathy - Studies Microbiology Data (last 24 hrs): 02/18/20 21:15 Throat Culture & Sensitivity - Final NORMAL UPPER RESPIRATORY JAMIE GROWN. 02/18/20 21:00 Blood - Blood Aerobic Blood Culture - Final Escherichia Coli 02/18/20 21:00 Blood - Blood Blood Culture Gram Stain - Final 02/18/20 21:00 Blood - Blood Anaerobic Blood Culture - Final Escherichia Coli 02/18/20 21:00 Blood - Blood Gram Stain - Final 02/18/20 21:00 Blood - Blood Aerobic Blood Culture - Final Escherichia Coli 02/18/20 21:00 Blood - Blood Blood Culture Gram Stain - Final 02/18/20 21:00 Blood - Blood Anaerobic Blood Culture - Final Escherichia Coli 02/18/20 21:00 Blood - Blood Gram Stain - Final Medications List Reviewed: Yes Assessment & Plan - Problems (Diagnosis) (1) Sepsis Current Visit: Yes Status: Acute (2) Dental caries Current Visit: Yes Status: Acute (3) Endocarditis Current Visit: Yes Status: Acute (4) Urinary tract infectious disease Onset Date: 04/14/15 Current Visit: No Status: Acute (5) Alcohol abuse Onset Date: 06/01/17 Current Visit: No Status: Chronic (6) Acute exacerbation of CHF (congestive heart failure) Current Visit: Yes Status: Acute - Plan PLAN: CONTINUE WITH PLAN OF CARE MENTIONED BELOW 1. IV ANTIBIOTICS AND Hep-Lock IV; ESBL E COLI AND WILL GIVE LEVAQUIN ONLY 2. DELIRIUM TREMENS PROPHYLAXIS NEEDS TO CONTINUE 3. ECHOCARDIOGRAM PENDING 4. BLOOD CULTURES WITH E COLI WHICH IS SENSITIVE TO LEVAQUIN 5. CHECK INFLAMMATORY MARKERS 6. MONITOR VITALS 7. PATIENT IS A FULL CODE 8. WILL START ANTIDEPRESSANT PATIENT HAS HAD EMOTIONAL TRAUMA. HER HAS BEEN ON FAITHFUL TO HER AND THIS HAS LED TO HER BEING DEPRESSED. 9. DIURESE PATIENT 10. GI DVT PROPHYLAXIS Discharge Plan: Home Plan to discharge in: Greater than 2 days - Advance Directives Does patient have a Living Will: No Does patient have a Durable POA for Healthcare: No - Code Status/Comfort Care Code Status: Full Code Critical Care: No Time Spent Managing PTS Care (In Minutes): 30
--- NOTE | 2020-02-21 10:12 | ECHO ---
HEIGHT: 5 ft 9 in WEIGHT: 159 lb 15.831 oz DATE OF STUDY: 02/19/[address]: Yair Sprague MD 2-DIMENSIONAL: YES M.MODE: YES DOPPLER: YES COLOR FLOW: YES TDS: NO PORTABLE: NO DEFINITY: NO BUBBLE STUDY: NO DIAGNOSIS: ENDOCARDITIS CARDIAC HISTORY: CATHERIZATION: NO SURGERY: NO PROSTHETIC VALVE: NO PACEMAKER: NO MEASUREMENTS (cm) DIASTOLIC (NORMALS) SYSTOLIC (NORMALS) IVSd 1.2 (0.6-1.2) LA Diam 2.8 (1.9-4.0) LVEF 61% LVIDd 3.6 (3.5-5.7) LVIDs 2.4 (2.0-3.5) %FS 32% LVPWd 1.2 (0.6-1.2) Ao Diam 3.4 (2.0-3.7) 2 DIMENSIONAL ASSESSMENT: RIGHT ATRIUM: NORMAL LEFT ATRIUM: NORMAL RIGHT VENTRICLE: NORMAL LEFT VENTRICLE: NORMAL TRICUSPID VALVE: NORMAL MITRAL VALVE: NORMAL PULMONIC VALVE: NORMAL AORTIC VALVE: NORMAL PERICARDIAL EFFUSION: NONE AORTIC ROOT: NORMAL LEFT VENTRICULAR WALL MOTION: NORMAL DOPPLER/COLOR FLOW: NORMAL COMMENTS: NORMAL 2D ECHOCARDIOGRAM WITH DOPPLER. NO WALL MOTION ABNORMALITY. NO EFFUSION. TECHNOLOGIST: Tayo VEGA
[2020-02-21 11:12] LABS: Absolute Lymphocytes (CBC) 1.1 K/uL (0.7-4.9); Basophils % 0.6 % (0-1.3); Hematocrit 31.2 % (36.0-45.0); Lymphocytes % 17.7 % (15.3-44.8); MPV 8.7 fL (7.6-11.3); RBC Red Blood Cell Count 3.97 M/uL (3.86-4.86)
[2020-02-21 11:46] LABS: ALT/SGPT 81 U/L (12-78); AST/SGOT 156 U/L (15-37); Albumin 2.5 g/dL (3.4-5.0); Alkaline Phosphatase 61 U/L (45-117); BUN Blood Urea Nitrogen 5 mg/dL (7-18); Bicarbonate 27 mmol/L (21-32); Bilirubin Total 0.5 mg/dL (0.2-1.0); Glucose Level 114 mg/dL (74-106); Magnesium 1.8 mg/dL (1.8-2.4); NT PRO-BNP 8172 pg/mL (<125); Protein, Total 6.7 g/dL (6.4-8.2); Sodium Level 138 mmol/L (136-145); Troponin I 0.02 ng/mL (0.0-0.045)
[2020-02-21 11:52] LABS: Potassium 2.9 mmol/L (3.5-5.1)
[2020-02-21] MEDS: HYDROCORTISONE SUC 100 MG INJ IV SCH ×2 (12:31→17:57)
[2020-02-21] MEDS: Levofloxacin500mg IV 500 MG/100 ML BAG IV SCH (12:32)
[2020-02-21] MEDS: FUROSEMIDE 20 MG/ 2ML VIAL IV SCH ×2 (12:34→17:57)
[2020-02-21] MEDS ORDERED: POTASSIUM 25 MEQ EFFERV TAB PO ONE ×2 (13:00→20:22)
[2020-02-21] MEDS ORDERED: KCL 20 MEQ/100 mL IVPB 20 MEQ/100 ML BAG IV ONE (13:00)
[2020-02-22] MEDS: Meropenem 1,000 MG in NA CHLORIDE 0.9% 100 ML IV SCH (00:20)
[2020-02-22] MEDS: HYDROCORTISONE SUC 100 MG INJ IV SCH ×3 (00:20→20:55)
[2020-02-22] MEDS: FUROSEMIDE 20 MG/ 2ML VIAL IV SCH ×3 (00:20→16:20)
[2020-02-22] MEDS: ACETAMINOPHEN 500 MG TAB PO PRN (01:40)
[2020-02-22] MEDS: METOPROLOL XL 50 MG TAB PO SCH ×2 (06:00→18:51)
[2020-02-22] MEDS: PANTOPRAZOLE 40MG TABLET PO SCH (06:00)
[2020-02-22] MEDS: chlordiazePOXIDE HCl 5 MG CAP PO SCH ×3 (06:00→20:54)
[2020-02-22 06:50] LABS: Absolute Lymphocytes (CBC) 1.2 K/uL (0.7-4.9); Basophils % 0.2 % (0-1.3); Hematocrit 31.3 % (36.0-45.0); Lymphocytes % 14.4 % (15.3-44.8); MPV 9.7 fL (7.6-11.3); RBC Red Blood Cell Count 4.02 M/uL (3.86-4.86)
[2020-02-22 06:52] LABS: Protime INR 1.13
--- NOTE | 2020-02-22 08:12 | P.PN ---
Subjective Date of Service: 02/22/20 PATIENT'S RESPIRATORY STATUS IS IMPROVED-REALIZED THAT PATIENT HAS NOT BEEN TAKING HER LIBRIUM; SHE HAS A HISTORY OF ALCOHOL ABUSE AND WAS TAKING LIBRIUM AT HOME. UNFORTUNATELY THIS WAS HELD. WE WILL RESTART AND HOPEFULLY HER MENTATION GETS BETTER OVER THE NEXT 24HRS. UOP WAS GREATER THAN 3500CC-AND ALMOST 4000CC/24HRS. BREATHING MUCH BETTER; AND UNABLE TO SEE JVP Review of Systems 10-point ROS is otherwise unremarkable Physical Examination - Vital Signs Temperature: 97.3 F Blood Pressure: 136/84 Pulse: 92 Respirations: 18 Pulse Ox (%): 100 - Physical Exam General: Alert, In no apparent distress, Confused Respiratory: Diminished, Crackles/rales Cardiovascular: Regular rate/rhythm, Normal S1 S2, Systolic murmur Gastrointestinal: Normal bowel sounds, Soft and benign, Non-distended, No tender ness Musculoskeletal: No clubbing, No swelling - Studies Microbiology Data (last 24 hrs): 02/18/20 21:40 Clean Catch Urine Leonard Count - Final >100,000 CFU/ML. 02/18/20 21:40 Clean Catch Urine - Final Escherichia Coli 02/18/20 21:15 Throat Culture & Sensitivity - Final NORMAL UPPER RESPIRATORY JAMIE GROWN. 02/18/20 21:00 Blood - Blood Aerobic Blood Culture - Final Escherichia Coli 02/18/20 21:00 Blood - Blood Blood Culture Gram Stain - Final 02/18/20 21:00 Blood - Blood Anaerobic Blood Culture - Final Escherichia Coli 02/18/20 21:00 Blood - Blood Gram Stain - Final 02/18/20 21:00 Blood - Blood Aerobic Blood Culture - Final Escherichia Coli 02/18/20 21:00 Blood - Blood Blood Culture Gram Stain - Final 02/18/20 21:00 Blood - Blood Anaerobic Blood Culture - Final Escherichia Coli 02/18/20 21:00 Blood - Blood Gram Stain - Final Medications List Reviewed: Yes Assessment & Plan - Problems (Diagnosis) (1) Sepsis Current Visit: Yes Status: Acute (2) Dental caries Current Visit: Yes Status: Acute (3) Endocarditis Current Visit: Yes Status: Acute (4) Urinary tract infectious disease Onset Date: 04/14/15 Current Visit: No Status: Acute (5) Alcohol abuse Onset Date: 06/01/17 Current Visit: No Status: Chronic (6) Acute exacerbation of CHF (congestive heart failure) Current Visit: Yes Status: Acute (7) Sepsis due to Escherichia coli Current Visit: Yes Status: Acute - Plan PLAN: CONTINUE WITH PLAN OF CARE MENTIONED BELOW 1. IV ANTIBIOTICS AND IV HYDRATION; BROADEN COVERAGE; DC MERREM AND CONTINUE WITH LEVAQUIN 2. DELIRIUM TREMENS PROPHYLAXIS 3. ECHOCARDIOGRAM PENDING 4. BLOOD CULTURES 5. SED RATE 6. MONITOR VITALS 7. PATIENT IS A FULL CODE 8. WILL START ANTIDEPRESSANT PATIENT HAS HAD EMOTIONAL TRAUMA. HER HAS BEEN ON FAITHFUL TO HER AND THIS HAS LED TO HER BEING DEPRESSED. 9. DIURESE PATIENT 10. GI DVT PROPHYLAXIS - Advance Directives Does patient have a Living Will: No Does patient have a Durable POA for Healthcare: No - Code Status/Comfort Care Code Status: Full Code
[2020-02-22] MEDS ORDERED: HALOPERIDOL LACT 5 MG/ML INJ IM PRN (08:43)
[2020-02-22] MEDS: BUPROPION HCL XL 150 MG TAB PO SCH (08:50)
[2020-02-22] MEDS: PREGABALIN 50 MG CAP PO SCH ×2 (08:50→20:54)
[2020-02-22] MEDS ORDERED: LORazepam 2 MG/ML VIAL IV ONE ×2 (08:56→10:18)
[2020-02-22 08:57] LABS: ALT/SGPT 65 U/L (12-78); AST/SGOT 72 U/L (15-37); Albumin 2.7 g/dL (3.4-5.0); Alkaline Phosphatase 67 U/L (45-117); BUN Blood Urea Nitrogen 8 mg/dL (7-18); Bicarbonate 27 mmol/L (21-32); Bilirubin Total 0.4 mg/dL (0.2-1.0); Glucose Level 124 mg/dL (74-106); Magnesium 1.6 mg/dL (1.8-2.4); NT PRO-BNP 5087 pg/mL (<125); Potassium 3.3 mmol/L (3.5-5.1); Protein, Total 7.2 g/dL (6.4-8.2); Sodium Level 137 mmol/L (136-145)
[2020-02-22] MEDS: Levofloxacin500mg IV 500 MG/100 ML BAG IV SCH (09:19)
[2020-02-22] MEDS ORDERED: LORazepam 2 MG/ML VIAL IV PRN ×2 (10:42)
[2020-02-22] MEDS ORDERED: MAGNESIUM SULFATE 1 gm IVPB 1 GM/100 ML BAG IV ONE (13:00)
[2020-02-22] MEDS ORDERED: POTASSIUM CL SA 10 MEQ TAB PO ONE (13:00)
[2020-02-22 13:17] LABS: C.diff Antigen/Toxin Ag neg : Tox neg (NEG : NEG)
[2020-02-23] MEDS: FUROSEMIDE 20 MG/ 2ML VIAL IV SCH ×3 (00:31→17:06)
[2020-02-23] MEDS ORDERED: HALOPERIDOL LACT 5 MG/ML INJ IV PRN (03:54)
[2020-02-23] MEDS ORDERED: LORazepam 2 MG/ML VIAL IV PRN ×2 (04:00→04:01)
[2020-02-23] MEDS: PANTOPRAZOLE 40MG TABLET PO SCH (05:36)
[2020-02-23] MEDS: METOPROLOL XL 50 MG TAB PO SCH ×2 (05:37→17:06)
[2020-02-23] MEDS: Levofloxacin500mg IV 500 MG/100 ML BAG IV SCH (08:19)
[2020-02-23] MEDS: ESCITALOPRAM 20 MG TAB PO SCH (08:20)
[2020-02-23] MEDS: ACETAMINOPHEN 500 MG TAB PO PRN (08:20)
[2020-02-23] MEDS: BUPROPION HCL XL 150 MG TAB PO SCH (08:21)
[2020-02-23] MEDS: chlordiazePOXIDE HCl 5 MG CAP PO SCH ×3 (08:37→20:04)
[2020-02-23] MEDS: PREGABALIN 50 MG CAP PO SCH ×2 (08:37→20:04)
[2020-02-23] MEDS: ONDANSETRON 4 MG/2 ML VIAL IV PRN (12:16)
[2020-02-24] MEDS: FUROSEMIDE 20 MG/ 2ML VIAL IV SCH ×3 (00:25→17:05)
--- NOTE | 2020-02-24 05:30 | P.PN ---
Subjective Date of Service: 02/23/20 Patient's sepsis symptoms have improved. Hypoxemia has resolved. However, patient delirious from withdrawing from Librium and alcohol. Continue Librium and continue did treat her delirium with Haldol. As this resolved hopefully we can get patient home because her sepsis seems to be very well controlled. Hypoxemia is also controlled. Review of Systems 10-point ROS is otherwise unremarkable Physical Examination - Vital Signs Temperature: 96.9 F Blood Pressure: 106/72 Pulse: 80 Respirations: 22 Pulse Ox (%): 94 - Physical Exam General: Alert, In no apparent distress, Delirious Neck: Without JVD or thyroid abnormality Respiratory: Clear to auscultation bilaterally, Normal air movement Cardiovascular: Regular rate/rhythm, Normal S1 S2 Gastrointestinal: Normal bowel sounds, Soft and benign, Non-distended, No tenderness Musculoskeletal: No tenderness Integumentary: No rashes Neurological: Normal strength at 5/5 x4 extr, Normal tone, Sensation intact - Studies Medications List Reviewed: Yes Assessment & Plan - Problems (Diagnosis) (1) Sepsis Current Visit: Yes Status: Acute (2) Dental caries Current Visit: Yes Status: Acute (3) Endocarditis Current Visit: Yes Status: Acute (4) Urinary tract infectious disease Onset Date: 04/14/15 Current Visit: No Status: Acute (5) Alcohol abuse Onset Date: 06/01/17 Current Visit: No Status: Chronic (6) Acute exacerbation of CHF (congestive heart failure) Current Visit: Yes Status: Acute (7) Delirium tremens Current Visit: Yes Status: Acute (8) Alcohol withdrawal Onset Date: 04/14/15 Current Visit: No Status: Acute (9) Heavy alcohol use Onset Date: 04/17/18 Current Visit: No Status: Chronic - Plan PLAN: CONTINUE WITH PLAN OF CARE MENTIONED BELOW 1. Continue with IV antibiotic with Levaquin. Sepsis controlled. No fever and white count is normalizing. Blood pressure and heart rate for stabilizing. 2. Patient's hypoxemia resolved as well. Diuresed greater than 5 L over 24-48 hr. Continue low-dose Lasix and monitor labs 3. Continue DT eats treatment with Haldol and Ativan. Continue Librium. 4. GI and DVT prophylaxis Discharge Plan: Home Plan to discharge in: Greater than 2 days - Advance Directives Does patient have a Living Will: No Does patient have a Durable POA for Healthcare: No - Code Status/Comfort Care Code Status: Full Code Critical Care: No Time Spent Managing PTS Care (In Minutes): 30
[2020-02-24] MEDS: PANTOPRAZOLE 40MG TABLET PO SCH (05:53)
[2020-02-24] MEDS: METOPROLOL XL 50 MG TAB PO SCH ×2 (05:53→17:05)
[2020-02-24 06:51] LABS: Absolute Lymphocytes (CBC) 2.7 K/uL (0.7-4.9); Basophils % 1.1 % (0-1.3); Hematocrit 33.8 % (36.0-45.0); Lymphocytes % 36.6 % (15.3-44.8); MPV 8.5 fL (7.6-11.3); RBC Red Blood Cell Count 4.37 M/uL (3.86-4.86)
[2020-02-24 06:55] LABS: ALT/SGPT 44 U/L (12-78); AST/SGOT 38 U/L (15-37); Albumin 2.8 g/dL (3.4-5.0); Alkaline Phosphatase 58 U/L (45-117); BUN Blood Urea Nitrogen 14 mg/dL (7-18); Bicarbonate 31 mmol/L (21-32); Bilirubin Total 0.4 mg/dL (0.2-1.0); Glucose Level 93 mg/dL (74-106); NT PRO-BNP 646 pg/mL (<125); Phosphorus 4.3 mg/dL (2.5-4.9); Potassium 3.4 mmol/L (3.5-5.1); Protein, Total 7.1 g/dL (6.4-8.2); Sodium Level 139 mmol/L (136-145)
[2020-02-24] MEDS: PREGABALIN 50 MG CAP PO SCH ×2 (08:54→21:30)
[2020-02-24] MEDS: chlordiazePOXIDE HCl 5 MG CAP PO SCH ×3 (08:54→21:30)
[2020-02-24] MEDS: ESCITALOPRAM 20 MG TAB PO SCH (08:54)
[2020-02-24] MEDS: BUPROPION HCL XL 150 MG TAB PO SCH (08:54)
[2020-02-24] MEDS: Levofloxacin500mg IV 500 MG/100 ML BAG IV SCH (09:00)
[2020-02-24] MEDS ORDERED: POTASSIUM CL SA 10 MEQ TAB PO ONE (09:00)
[2020-02-25] MEDS: FUROSEMIDE 20 MG/ 2ML VIAL IV SCH (00:28)
[2020-02-25 04:34] VITALS: O2SAT 98
--- NOTE | 2020-02-25 05:12 | P.PN ---
Subjective Date of Service: 02/24/20 Patient doing much better. Neurologically improving. Anticipate discharge home today or tomorrow depending on how awake and alert she is. May decrease Librium dosing to twice daily Review of Systems 10-point ROS is otherwise unremarkable Physical Examination - Vital Signs Temperature: 98.1 F Blood Pressure: 131/85 Pulse: 75 Respirations: 18 Pulse Ox (%): 97 - Physical Exam General: Alert, In no apparent distress, Oriented x3 Respiratory: Clear to auscultation bilaterally, Normal air movement Cardiovascular: Regular rate/rhythm, Normal S1 S2, No murmurs Gastrointestinal: Normal bowel sounds, Soft and benign, Non-distended, No tenderness Musculoskeletal: No clubbing, No swelling, No tenderness Neurological: Normal strength at 5/5 x4 extr, Normal tone, Sensation intact, Cranial nerves 3-12 intact - Studies Medications List Reviewed: Yes Assessment & Plan - Problems (Diagnosis) (1) Sepsis Current Visit: Yes Status: Acute (2) Dental caries Current Visit: Yes Status: Acute (3) Endocarditis Current Visit: Yes Status: Acute (4) Urinary tract infectious disease Onset Date: 04/14/15 Current Visit: No Status: Acute (5) Alcohol abuse Onset Date: 06/01/17 Current Visit: No Status: Chronic (6) Acute exacerbation of CHF (congestive heart failure) Current Visit: Yes Status: Acute (7) Delirium tremens Current Visit: Yes Status: Acute (8) Alcohol withdrawal Onset Date: 04/14/15 Current Visit: No Status: Acute (9) Heavy alcohol use Onset Date: 04/17/18 Current Visit: No Status: Chronic - Plan PLAN: CONTINUE WITH PLAN OF CARE MENTIONED BELOW 1. Clinically doing much better. Continue with antibiotics and will change to oral antibiotics. Continue Librium. Dc Ativan. Haldol as needed. Anticipate discharge home over the next 24-48 hr Discharge Plan: Home Plan to discharge in: 24 Hours - Advance Directives Does patient have a Living Will: No Does patient have a Durable POA for Healthcare: No - Code Status/Comfort Care Code Status: Full Code Critical Care: No Time Spent Managing PTS Care (In Minutes): 30
[2020-02-25 05:50] LABS: BUN Blood Urea Nitrogen 17 mg/dL (7-18); Bicarbonate 31 mmol/L (21-32); Glucose Level 105 mg/dL (74-106); Potassium 3.9 mmol/L (3.5-5.1); Sodium Level 139 mmol/L (136-145)
[2020-02-25] MEDS: PANTOPRAZOLE 40MG TABLET PO SCH (06:24)
[2020-02-25] MEDS: chlordiazePOXIDE HCl 5 MG CAP PO SCH (09:00)
[2020-02-25] MEDS ORDERED: POTASSIUM 25 MEQ EFFERV TAB PO ONE (09:00)
[2020-02-25] MEDS ORDERED: levoFLOXacin 500 MG TAB PO SCH (09:00)
[2020-02-25] MEDS: PREGABALIN 50 MG CAP PO SCH (09:00)
[2020-02-25] MEDS ORDERED: METOPROLOL XL 50 MG TAB PO SCH (09:00)
[2020-02-25] MEDS ORDERED: hydroCHLOROthiazide 25 MG TAB PO SCH (09:00)
[2020-02-25] MEDS: ESCITALOPRAM 20 MG TAB PO SCH (09:31)
[2020-02-25] MEDS: BUPROPION HCL XL 150 MG TAB PO SCH (09:31)
[2020-02-25 13:48] VITALS: BP 113/76; TEMP 98.9
--- NOTE | 2020-02-27 06:44 | P.DS ---
Discharge Date: 02/25/20 Disposition: ROUTINE DISCHARGE Discharge Condition: GOOD Reason for Admission: SEPSIS SECONDARY TO UTI; DENTAL MARCUS; RULE OUT ENDOCARDITIS - Problems (1) Sepsis Status: Acute (2) Dental caries Status: Acute (3) Endocarditis Status: Acute (4) Urinary tract infectious disease Onset Date: 04/14/15 Status: Acute (5) Alcohol abuse Onset Date: 06/01/17 Status: Chronic (6) Acute exacerbation of CHF (congestive heart failure) Status: Acute (7) Delirium tremens Status: Acute (8) Alcohol withdrawal Onset Date: 04/14/15 Status: Acute (9) Heavy alcohol use Onset Date: 04/17/18 Status: Chronic Brief History of Present Illness: PATIENT IS A 44-YEAR-OLD FEMALE WHO CAME TO THE HOSPITAL WITH FEVER, SHAKES, AND CHILLS. SHE WAS REALLY LETHARGIC AND NOT FEELING LIKE HERSELF. SHE FELT SHORT OF BREATH WELL. IN THE EMERGENCY ROOM SHE WAS FOUND HAVE A TEMP OF A 102.5. SHE WAS TACHYCARDIC WITH A HEART RATE OF 130S. HER WORKUP REVEALED A SEVERE URINARY TRACT INFECTION. THERE WAS ALSO CONCERN BECAUSE OF DENTAL CARIES THAT THERE MAY BE A POSSIBILITY OF ENDOCARDITIS. BLOOD CULTURE X2 HAVE ALSO BEEN OBTAINED. WILL CHECK A SED RATE. AT THIS TIME, PATIENT WILL BE ADMITTED TO THE HOSPITAL FOR FURTHER WORKUP. Hospital Course: Patient had clinically gotten worse. Patient had a UTI with sepsis. Cultures grew out E. coli. This was sensitive to Levaquin. Unfortunately patient wanted to DTs during hospital stay. This increase patient's hospitalization for a few extra days. Clinically, patient is doing much better. Patient is ambulating and eating without any difficulty. At this time, patient is stable for discharge home. Vital Signs/Physical Exam: Temp Pulse Resp BP Pulse Ox 98.9 F 81 20 113/76 99 02/25/20 12:00 02/25/20 12:00 02/25/20 12:00 02/25/20 12:00 02/25/20 12:00 General: Alert, In no apparent distress, Oriented x3 Laboratory Data at Discharge: WBC 7.3 K/uL (4.3-10.9) D 02/24/20 06:16 Hgb 10.9 g/dL (12.0-15.0) L 02/24/20 06:16 Hct 33.8 % (36.0-45.0) L 02/24/20 06:16 Plt Count 273 K/uL (152-406) D 02/24/20 06:16 PT 13.3 SECONDS (9.5-12.5) H 02/22/20 06:25 INR 1.13 02/22/20 06:25 APTT 29.4 SECONDS (24.3-36.9) 02/22/20 06:25 Sodium 139 mmol/L (136-145) 02/25/20 05:17 Potassium 3.9 mmol/L (3.5-5.1) 02/25/20 05:17 BUN 17 mg/dL (7-18) 02/25/20 05:17 Creatinine 0.70 mg/dL (0.55-1.3) 02/25/20 05:17 Glucose 105 mg/dL (74-106) 02/25/20 05:17 Phosphorus 4.3 mg/dL (2.5-4.9) D 02/24/20 06:16 Magnesium 2.0 mg/dL (1.8-2.4) 02/24/20 06:16 Total Bilirubin 0.4 mg/dL (0.2-1.0) 02/24/20 06:16 AST 38 U/L (15-37) H 02/24/20 06:16 ALT 44 U/L (12-78) 02/24/20 06:16 Alkaline Phosphatase 58 U/L (45-117) 02/24/20 06:16 Troponin I 0.02 ng/mL (0.0-0.045) 02/21/20 11:00 Triglycerides 61 mg/dL (<150) 02/19/20 04:10 Cholesterol 171 mg/dL (<200) 02/19/20 04:10 HDL Cholesterol 81 mg/dL (40-60) H 02/19/20 04:10 Cholesterol/HDL Ratio 2.11 02/19/20 04:10 Amylase 99 U/L (25-115) 02/18/20 20:40 Lipase 86 U/L (73-393) 02/18/20 20:40 Home Medications: Chlordiazepoxide HCl [Librium] 10 mg PO TID #40 capsule 02/25/20 Escitalopram Oxalate [Lexapro] 10 mg PO BID #60 tablet 02/25/20 Metoprolol Succinate [Toprol Xl*] 50 mg PO BID 6AM 6PM #60 tab 02/25/20 Pantoprazole [Protonix Tab*] 40 mg PO DAILYAC #30 tab 02/25/20 hydroCHLOROthiazide [Hydrodiuril*] 12.5 mg PO DAILY #30 tab 02/25/20 levoFLOXacin [Levaquin*] 500 mg PO DAILY #7 tab 02/25/20 New Medications: hydroCHLOROthiazide [Hydrodiuril*] 12.5 mg PO DAILY #30 tab levoFLOXacin [Levaquin*] 500 mg PO DAILY #7 tab Escitalopram Oxalate [Lexapro] 10 mg PO BID #60 tablet Chlordiazepoxide HCl [Librium] 10 mg PO TID #40 capsule Pantoprazole [Protonix Tab*] 40 mg PO DAILYAC #30 tab Metoprolol Succinate [Toprol Xl*] 50 mg PO BID 6AM 6PM #60 tab Patient Discharge Instructions: OK TO DC IV AND DC HOME. FOLLOW-UP WITH PRIMARY CARE PROVIDER IN 1-2 WEEKS. RETURN TO THE ER IF symptoms worsen. CALL or TEXT DR. KAN AT [phone] IF ANY QUESTIONS REGARDING HOSPITAL STAY. PLEASE CALL THE FLOOR AT [phone] IF ANY MEDICATION OR NURSING QUESTIONS. Diet: Regular Activity: Fall precautions Time spent managing pt's care (in minutes): 25
== END 2020-02-25 14:11 | disposition home or self-care (01) | DRG 871 ==
LOC: ER 20:30 → ERHOLD 23:42 → 4TH 02-19 10:32 → 2ND 02-21 21:24
PROVIDERS: ADMIT Hospitalist; ATTEND Hospitalist
DX: A41.51 Sepsis due to Escherichia coli [E. coli] (principal); I50.31 Acute diastolic (congestive) heart failure; N39.0 Urinary tract infection, site not specified; I38 Endocarditis, valve unspecified; Z16.12 Extended spectrum beta lactamase (ESBL) resistance; F10.231 Alcohol dependence with withdrawal delirium; I11.0 Hypertensive heart disease with heart failure; K02.9 Dental caries, unspecified; R65.20 Severe sepsis without septic shock; R09.02 Hypoxemia; R06.02 Shortness of breath; R50.9 Fever, unspecified; Z79.899 Other long term (current) drug therapy; Z90.49 Acquired absence of other specified parts of digestive tract; Z88.1 Allergy status to other antibiotic agents; Z79.82 Long term (current) use of aspirin; Z20.828 Contact with and (suspected) exposure to other viral communicable diseases
CPT/HCPCS: 36415; 71045; 71250; 80048; 80053; 80061; 80076; 81003; 81015; 82140; 82150; 82550; 82553; 83605; 83690; 83735; 83880; 84100; 84132; 84145; 84484; 85025; 85610; 85652; 85730; 86140; 87040; 87070; 87077; 87081; 87086; 87088; 87186; 87205; 87324; 87449; 87804; 93005; 93306; 94760; 96365; 96367; 96375; 99285; J1580; J1630; J1720; J1940; J2185; J2270; J2405; J2550; J3370; J3411; J3475; J3480; J7030; J7040; J7050; P9047; Q0161; U0002

== ENCOUNTER 2020-10-17 16:58 | Inpatient (IN) | payer OTHER, SELFPAY ==
--- OUTSIDE RECORDS SUMMARY | 2020-10-17 17:04 | XMS REPORT | Continuity of Care Document ---
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 HermannCHEM LGSKX3867-65-02 13:46:0016.7[facility] HermannCHEM UPQMD4382-25-12 13:46:009.4[facility] [place] CARDIAC TSOCBGB0604-60-17 11:47:00<0.02[facility] HermannCHEM KVZSR5541-06-88 11:47:001.7[facility]annCHEM VTMXD3587-45-57 11:47:0083[facility]annCHEM AOXFZ4475-04-82 11:47:003[facility]annCHEM AWVNM2237-25-66 11:47:000.52 [facility]annCHEM CPECS6828-04-07 11:47:11867Cugvjcqf HermannCHEM PANEL 2019-04-04 11:47:0099[facility]annCHEM HBKWO3516-11-72 11:47:0024[facility]annCHEM YJFPY3615-51-11 11:47:009.5[facility]annCHEM YLQZQ3071-09-02 11:47:34889Fgqfbhlz HermannCHEM DCMQO4785-57-29 11:47:0015.1[facility] OUCDJEBCIL6944-88-55 11:47:00Normal (04/04/19 6:47 AM)[facility]annHEMATOLOGY 2019-04-04 11:47:0062.5[facility] WbbmovzCPBVBQRTEU6275-35-29 11:47:0025.6[facility] CuqbmekKFIHZBCMCB8239-89-89 11:47:0010.3[facility] IbkeajwMTAFSJCEOZ5806-96-29 11:47:001.2[facility] UcfmslhSIZUFJOSIO1415-66-68 11:47:000.4[facility] DVWIBIFGUP5144-03-82 11:47:002.9[facility] GwdentyZZLULYLSDY2409-61-72 11:47:001.2 [facility] OaahgyqSBHBZCJJIL6318-74-04 11:47:000.5[facility] HermannHEMATOLOGY 2019-04-04 11:47:000.1[facility] XozlzszLXIFLIDRVF4736-93-53 11:47:001+ *ABN*(04/04/19 6:47 AM)[facility] DaizpujGEVYIUHVES1733-41-14 11:47:001+ *ABN*(04/04/19 6:47 AM)[facility] CaslbjaFKSHIYPFMT9892-94-41 11:47:001+ *ABN*(04/04/19 6:47 AM)[facility] PhmnsxiBYPMLTQWVR6686-14-53 11:47:00Rare *ABN*(04/04/19 6:47 AM)[facility] QevfmdcZCUHBQAJCW7394-26-42 11:47:004.6[facility] TlwhplyCJESTXZVSQ8009-83-22 11:47:003.94[facility] LimmnzsGAUJMFVKRC9366-55-97 11:47:0010.9[facility] LbvyqwjEBWICXQEUE9280-81-70 11:47:0033.5[facility] GWEDUCCPQY5841-33-56 11:47:0085.0[facility] TpmekrpAUSZXKHMOC3146-89-89 11:47:00 Test Item Value Reference Range Interpretation Comments MCH (test code = MCH) 27.7 pg 27.0-31.0 [facility] TwnetktTBLUMVHWSX5228-91-36 11:47:0032.6[facility] HermannHEMATOLOGY 2019-04-04 11:47:0022.8[facility] SqdiukbCBSFWMQIUG0633-89-16 11:47:92644Gmgafhkf VkdhsdaUFMYDMHQLA6226-61-01 11:47:008.1[facility] HermannCARDIAC PXIOSYI8180-51-63 02:32:00<0.02[facility] HermannCHEM UZTRE0893-63-60 02:32:00 Test Item Value Reference Range Interpretation Comments B/C Ratio (test code = B/C Ratio) 4 1 6-25 [facility]annCHEM MQPHW4677-29-26 02:32:004.2[facility] HermannCHEM PANEL 2019-04-04 02:32:00 Test Item Value Reference Range Interpretation Comments A/G Ratio (test code = A/G Ratio) 0.9 1 0.7-1.6 [facility]annCHEM HLMRR4326-93-79 02:32:007.9[facility] HermannCHEM PANEL 2019-04-04 02:32:003.7[facility] HermannCHEM BXZEQ2051-07-03 02:32:0038[facility]annCHEM LDMGJ5235-10-49 02:32:0070[facility]annCHEM QUNBQ3522-93-88 02:32:71878Adcgrrnd HermannCHEM TVWCY8332-25-77 02:32:002.0[facility]annCHEM SUWVC4665-40-67 02:32:003.41[facility]annCHEM ERMRZ9097-08-68 02:32:43642 [facility]annCHEM KRKOR7164-10-70 02:32:001.0[facility] HermannHEMATOLOGY 2019-04-04 02:32:007.6[facility] MuhvzwrMOXWKNFLTR9197-09-68 02:32:003.81[facility] YmcrrygVJDACUFBUX5167-75-03 02:32:0010.6[facility] WgbiikoDSCOOWJEKA6322-40-66 02:32:0032.5[facility] YszkptzPTTYKTAJOZ5527-04-13 02:32:0085.5[facility] [place] JDWVYZEWRS8201-79-11 02:32:00 Test Item Value Reference Range Interpretation Comments MCH (test code = MCH) 27.8 pg 27.0-31.0 [facility] GruyxxoJWGQPXEDOW1244-05-96 02:32:0032.6[facility] HermannHEMATOLOGY 2019-04-04 02:32:0022.2[facility] OuxaykwXIXRKWWXGK4761-32-64 02:32:79021Mghtzpxq UuofhwcWXINGRDCSB1850-31-88 02:32:008.3[facility] UujkyuwQDWFBWDVMX1886-85-16 02:32:00 Test Item Value Reference Range Interpretation Comments INR (test code = INR) 1.12 1 0.85-1.17 [facility] WulxxojNOFBQECSYZ1657-90-77 02:32:00 Test Item Value Reference Range Interpretation Comments PT (test code = PT) 14.2 s 12.0-14.7 [facility]QPWZ8363[facility]-47 02:32:00 Test Item Value Reference Range Interpretation Comments PTT (test code = PTT) 27.6 s 22.9-35.8 [facility] XucylygZIKCNYOPYY7072-91-24 02:32:00Normal (04/03/19 9:32 PM)[facility] SeluofsFRSXBOPBXO3038-24-95 02:32:0072.4[facility] OawcnglVRTHSRFERC6511-18-56 02:32:0017.6[facility] ApbtyzbILWIYDNXLN1237-54-91 02:32:009.7[facility] [place] YJYFLOQIUT2018-63-86 02:32:000.1[facility] VvzukngVVBRNWKBFK6372-19-05 02:32:000.2 [facility] VgkgxbuWWUWROEXYM5593-93-26 02:32:005.5[facility] HermannHEMATOLOGY 2019-04-04 02:32:001.3[facility] KgccvlbDDHQPENQEK8799-60-75 02:32:000.7[facility] EcmplzsTHGPBMUZNZ4574-82-52 02:32:00<3[facility] PudihdkTYEWGPBFQD2942-79-56 02:32:00<0.003[facility] HermannBASIC METABOLIC AFIOT1477-08-95 12:36:00 Test Item Value Reference Range Interpretation [...] GFR) formula.Chronic kidney disease is defined as eith er kidney damageor GFR <60 mL/min/1.73 m2 for >3 months. CREATININE (test code 0.60 mg/dL 0.55-1.02 N Note change in = CREAT) reference range due to change in reagent. BUN/CREATININE RATIO 13.9 10-20 N (test code = BUN/CREA) CALCIUM (test code = 9.1 mg/dL 8.5-10.1 N CA) BASIC METABOLIC [id number] 12:30:00 Test Item Value Reference Range Interpretation [...] code = HCGTRIAGE) SPECIMEN COMMENTS: URINECOMMENTS TO TIME STUDY ENGINEER: URINE TESTUrine Test Result: NEGATIVEAre internal controls (presence of a control line & clear background) OK? YLot # of HCG Test Kit: [id number] Date of Kit: 06/23/2020Test Performed by: Marlene Perfomed on: 01/24/19CHEMISTRY 8 [id number] 13:46:00 Test Item Value Reference Range Interpretation [...] >60 H code = GFRBED) CHEMISTRY 8 [id number] 13:46:00 Test Item Value Reference Range Interpretation [...] H (test code = GFRBED) POC LACTIC [id number] 13:40:00 Test Item Value Reference Range Interpretation Comments POC LACTIC ACID (test code = 0.94 MMOL/L 0.4-2.2 N POCLAC) URINALYSIS [id number] 02:02:00 Test Item Value Reference Range Interpretation [...] #/LPF FEW Urine Source? Clean CatchBASIC METABOLIC [id number] 01:55:00 Test Item Value Reference Range Interpretation [...] MDRD formula.Chronic kidney disease is defined as eith er kidney damageor GFR <60 mL/min/1.73 m2 for >3 months. CREATININE (test code 0.40 mg/dL 0.55-1.02 L Note change in = CREAT) reference range due to change in reagent. BUN/CREATININE RATIO 10.0 10-20 N (test code = BUN/CREA) CALCIUM (test code = 7.7 mg/dL 8.5-10.1 L CA) HEPATIC FUNCTION [id number] 01:55:00 Test Item Value Reference Range Interpretation [...] range due ALKP) to change in reagent. [id number] 01:55:00 Test Item Value Reference Range Interpretation Comments LIPASE (test code = LIP) 123 U/L 73.0-393.0 N HCG SERUM [id number] 01:55:00 Test Item Value Reference Range Interpretation Comments HCG SERUM QUAL (test NEGATIVE NEGATIVE This HC GQL test is NOT code = HCGQL) applicable for MALE patients.Check with nurse about probable order error.If Tumor Marker Test needed, nu rse should order test "HCG TU"(Test #550.65277)---- - BASIC METABOLIC [id number] 01:48:00 Test Item Value Reference Range Interpretation [...] code = CA) mg/dL 8.5-10.1 HEPATIC FUNCTION [id number] 01:48:00 Test Item Value Reference Range Interpretation [...] TOTAL (test IUnit/L 45-117 code = ALKP) [id number] 01:48:00 Test Item Value Reference Range Interpretation Comments LIPASE (test code = LIP) U/L 73.0-393.0 HCG SERUM [id number] 01:48:00 Test Item Value Reference Range Interpretation Comments HCG SERUM QUAL (test NEGATIVE NEGATIVE This HC GQL test is NOT code = HCGQL) applicable for MALE patients.Check with nurse about probable order error.If Tumor Marker Test needed, nu rse should order test "HCG TU"(Test #550.42923)---- - [id number] 01:48:00 Test Item Value Reference Range Interpretation Comments MAGNESIUM (test code = MAG) 1.7 mg/dL 1.8-2.4 L BASIC METABOLIC [id number] 01:41:00 Test Item Value Reference Range Interpretation [...] code = CA) mg/dL 8.5-10.1 HEPATIC FUNCTION [id number] 01:41:00 Test Item Value Reference Range Interpretation [...] TOTAL (test IUnit/L 45-117 code = ALKP) [id number] 01:41:00 Test Item Value Reference Range Interpretation Comments LIPASE (test code = LIP) U/L 73.0-393.0 HCG SERUM [id number] 01:41:00 Test Item Value Reference Range Interpretation Comments HCG SERUM QUAL (test NEGATIVE NEGATIVE This HC GQL test is NOT code = HCGQL) applicable for MALE patients.Check with nurse about probable order error.If Tumor Marker Test needed, nu rse should order test "HCG TU"(Test #550.90396)---- - CBC W/O [id number] 01:37:00 Test Item Value Reference Range Interpretation [...]
[2020-10-17 20:56] LABS: Absolute Lymphocytes (CBC) 2.3 K/uL (0.7-4.9); Basophils % 1.2 % (0-1.3); Hematocrit 33.9 % (36.0-45.0); Lymphocytes % 35.4 % (15.3-44.8); MPV 8.7 fL (7.6-11.3); RBC Red Blood Cell Count 4.98 M/uL (3.86-4.86)
--- NOTE | 2020-10-17 21:07 | RAD REPORT ---
EXAM DESCRIPTION: [place] Single View10/17/2020 8:57 pm CLINICAL HISTORY: Chest pain COMPARISON: 2019 FINDINGS: The lungs appear clear of acute infiltrate. The heart is normal size IMPRESSION: No acute abnormalities displayed
[2020-10-17] MEDS ORDERED: MORPHINE 4 MG/ML SYR ONE ×2 (21:08→23:58)
[2020-10-17] MEDS ORDERED: ONDANSETRON 4 MG/2 ML VIAL ONE ×2 (21:09→23:58)
[2020-10-17] MEDS ORDERED: FAMOTIDINE 20 MG/2 ML VIAL IV ONE (21:09)
[2020-10-17] MEDS ORDERED: NA CHLORIDE 0.9% 1,000 ML ONE (21:09)
[2020-10-17 21:16] LABS: Protime INR 0.99
[2020-10-17 21:32] LABS: ALT/SGPT 22 U/L (12-78); AST/SGOT 26 U/L (15-37); Albumin 3.7 g/dL (3.4-5.0); Alkaline Phosphatase 85 U/L (45-117); BUN Blood Urea Nitrogen 8 mg/dL (7-18); Bicarbonate 23 mmol/L (21-32); Bilirubin Direct 0.2 mg/dL (0-0.2); Bilirubin Total 0.6 mg/dL (0.2-1.0); Glucose Level 86 mg/dL (74-106); Magnesium 1.9 mg/dL (1.8-2.4); NT PRO-BNP 110 pg/mL (<125); Protein, Total 8.5 g/dL (6.4-8.2); Sodium Level 136 mmol/L (136-145); Troponin (Emerg Dept Use Only) < 0.02 ng/mL (0.0-0.045)
[2020-10-17 22:04] LABS: Urine Blood NEGATIVE (Negative); Urine Glucose NEGATIVE (Negative); Urine Protein NEGATIVE (NEG); Urine Specific Gravity >1.030 (1.005-1.030); Urine Specific Gravity/Preg >1.030 (1.005-1.030)
--- NOTE | 2020-10-17 22:53 | EDPHYS ---
Physician Documentation [facility] Name: Diana Watson Age: 45 yrs Sex: Female : 1975 Arrival Date: 10/17/2020 Time: 17:02 Bed 28 Private MD: ED Physician Yair Silvestre HPI: 10/17 22:50 This 45 yrs old Female presents to ER via EMS with complaints of Chest Pain. ma2 22:50 The patient or guardian reports chest pain that is located primarily in the substernal ma2 area. Onset: gradually, 1 day(s) ago. The chest pain is described as aching. Severity of pain: At its worst the pain was moderate in the emergency department the pain is unchanged. ASSOCIATE DEAN: 20:58 LMP 2020 rr5 Historical: - Allergies: 17:13 Ancef (rash); ll1 - PMHx: 17:13 Alcoholism; Anxiety; Hypertension; mitral valve prolapse; Ulcers; ll1 - PSHx: 17:13 Cholecystectomy; ablation; ll1 - Immunization history:: Flu vaccine is not up to date. - Social history:: Smoking status: Patient reports the use of cigarette tobacco products, smokes one-half pack cigarettes per day, Patient/guardian denies using alcohol, street drugs, The patient lives with family. - Family history:: not pertinent. ROS: 22:50 Constitutional: Negative for fever, chills, and weight loss. ma2 22:50 All other systems are negative. Exam: 17:53 ECG was reviewed by the Attending Physician. kdr 22:50 Constitutional: This is a well developed, well nourished patient who is awake, alert, ma2 and in no acute distress. Chest/axilla: Normal chest wall appearance and motion. Nontender with no deformity. No lesions are appreciated. Cardiovascular: Regular rate and rhythm with a normal S1 and S2. No gallops, murmurs, or rubs. Normal PMI, no JVD. No pulse deficits. Respiratory: Lungs have equal breath sounds bilaterally, clear to auscultation and percussion. No rales, rhonchi or wheezes noted. No increased work of breathing, no retractions or nasal flaring. Abdomen/GI: Soft, non-tender, with normal bowel sounds. No distension or tympany. No guarding or rebound. No evidence of tenderness throughout. MS/ Extremity: Pulses equal, no cyanosis. Neurovascular intact. Full, normal range of motion. Neuro: Awake and alert, GCS 15, oriented to person, place, time, and situation. Cranial nerves II-XII grossly intact. Motor strength 5/5 in all extremities. Sensory grossly intact. Cerebellar exam normal. Normal gait. Vital Signs: 17:10 BP 147 / 97; Pulse 81; Resp 17; Temp 98.5; Pulse Ox 100% ; Weight 65.77 kg; Height 5 ll1 ft. 8 in. (172.72 cm); Pain 6/10; 20:58 BP 173 / 94; Pulse 95; Resp 20; Pulse Ox 100% ; rr5 22:00 BP 161 / 95; Pulse 93; Resp 17; Pulse Ox 100% ; rr5 22:42 BP 155 / 92; Pulse 90; Resp 16; Pulse Ox 98% ; rr5 23:40 BP 153 / 90; Pulse 92; Resp 16; Pulse Ox 98% ; Pain 8/10; rr5 10/18 01:00 BP 141 / 85; Pulse 80; Resp 16; Pulse Ox 99% ; rr5 01:48 BP 139 / 78; Pulse 85; Resp 17; Pulse Ox 99% ; rr5 10/17 17:10 Body Mass Index 22.05 (65.77 kg, 172.72 cm) ll1 MDM: 10/17 20:29 Patient medically screened. ma2 22:50 Differential diagnosis: chest wall pain, esophagitis, gastritis, gastroesophageal ma2 reflux disease (GERD), stable angina. HEART Score: History: Slightly Suspicious (0), ECG: Normal (0), Age: > 45 and < 65 years (1), Risk Factors: 1 or 2 risk factors (1), Troponin: < or = 1 x Normal Limit (0), Total Score = 2. Data reviewed: vital signs, nurses notes. Counseling: I had a detailed discussion with the patient and/or guardian regarding: the historical points, exam findings, and any diagnostic results supporting the discharge/admit diagnosis, the presence of at least one elevated blood pressure reading (>120/80) during this emergency department visit, the need for outpatient follow up. ED course: discussed with dr. friedman he recommends admission to [facility]. 10/17 20:28 Order name: Basic Metabolic Panel; Complete Time: 22:03 [facility] 10/17 20:28 Order name: CBC with Diff; Complete Time: 22:03 [facility] 10/17 20:28 Order name: LFT's; Complete Time: 22:03 [facility] 10/17 20:28 Order name: Magnesium; Complete Time: 22:03 [facility] 10/17 20:28 Order name: NT PRO-BNP; Complete Time: 22:03 [facility] 10/17 20:28 Order name: PT-INR; Complete Time: 22:03 [facility] 10/17 20:28 Order name: Troponin (emerg Dept Use Only); Complete Time: 22:03 [facility] 10/17 21:49 Order name: Urine Dipstick--Ancillary (enter results) 10/17 21:49 Order name: Urine --Ancillary (enter results); Complete Time: 22:32 10/17 21:49 Order name: Urine Dipstick-Ancillary; Complete Time: 22:32 [facility] 10/18 00:24 Order name: SARS-COV-2 RT PCR [facility] 10/18 01:42 Order name: Alcohol Serum/Plasma [facility] 10/18 01:42 Order name: Urine Drug Screen [facility] 10/17 20:28 Order name: XRAY Chest (1 view); Complete Time: 22:03 [facility] 10/17 20:28 Order name: EKG; Complete Time: 20:29 [facility] 10/17 20:28 Order name: Cardiac monitoring; Complete Time: 20:33 [facility] 10/17 20:28 Order name: EKG - Nurse/Tech; Complete Time: 20:33 [facility] 10/17 20:28 Order name: IV Saline Lock; Complete Time: 20:33 [facility] 10/18 01:36 Order name: CONS Physician Consult [facility] 10/18 01:53 Order name: Guiac [facility] 10/18 01:57 Order name: Urine Microscopic Only [facility] 10/18 02:04 Order name: Occult Blood--Ancillary [facility] 10/17 20:28 Order name: Labs collected and sent; Complete Time: 20:33 [facility] 10/17 20:28 Order name: O2 Per Protocol; Complete Time: 20:33 [facility] 10/17 20:28 Order name: O2 Sat Monitoring; Complete Time: 20:33 [facility] 10/17 20:49 Order name: Urine Dipstick-Ancillary (obtain specimen); Complete Time: 21:47 ma2 EC:53 Rate is 80 beats/min. Rhythm is regular, Normal Sinus Rhythm with No ectopy. QRS [place] kdr is Normal. [place] interval is normal. QRS interval is normal. QT interval is normal. Clinical impression: Normal ECG. Administered Medications: 20:55 Drug: NS 0.9% 1000 ml Route: IV; Rate: 1 bolus; Site: right wrist; rr5 22:00 Follow up: Response: No adverse reaction; IV Status: Completed infusion; IV Intake: rr5 1000ml 20:55 Drug: Pepcid (famotidine) 20 mg Route: IVP; Site: right wrist; rr5 22:00 Follow up: Response: No adverse reaction rr5 20:57 Drug: Zofran (Ondansetron) 4 mg Route: IVP; Site: right wrist; rr5 22:05 Follow up: Response: No adverse reaction rr5 20:58 Drug: morphine 4 mg {Note: rass 0.} Route: IVP; Site: right wrist; rr5 22:00 Follow up: Response: No adverse reaction rr5 23:50 Drug: Zofran (Ondansetron) 4 mg Route: IVP; Site: right wrist; rr5 10/18 01:00 Follow up: Response: No adverse reaction rr5 10/17 23:52 Drug: morphine 4 mg {Note: rass 0.} Route: IVP; Site: right wrist; rr5 10/18 01:00 Follow up: Response: No adverse reaction; Pain is decreased; RASS: Alert and Calm (0) rr5 10/17 23:57 Drug: Potassium Chloride 20 mEq Route: IV; Rate: calculated rate; Site: right wrist; rr5 10/18 01:52 Follow up: Response: No adverse reaction; IV Status: Completed infusion; IV Intake: rr5 100ml Disposition: 10/17/20 22:52 Hospitalization ordered by Bayron Madden for Observation. Preliminary diagnosis is Other chest pain. - Bed requested for Telemetry/MedSurg (observation). - Status is Observation. rr5 - Condition is Stable. - Problem is new. - Symptoms are unchanged. Signatures: Dispatcher [employer] Joyce Desouza RN RN mw Rittger, Kevin, MD MD kdr Alzahri, Mohammad, MD MD ma2 Nirmal Merchant, RN RN rr5 Nubia Chavarria RN RN ll1 Corrections: (The following items were deleted from the chart) 10/17 23:13 23:00 CORONAVIRUS+Z ordered. EDVA EDMS 10/18 01:38 10/17 22:52 Hospitalization Ordered by Bayron Madden for Observation. Preliminary mw diagnosis is Other chest pain. Bed requested for Telemetry/MedSurg (observation). Status is Observation. Condition is Stable. Problem is new. Symptoms are unchanged. nv2 10/18 02:23 01:38 10/17/2020 22:52 Hospitalization Ordered by Bayron Madden for Observation. rr5 Preliminary diagnosis is Other chest pain. Bed requested for Telemetry/MedSurg (observation). Status is Observation. Condition is Stable. Problem is new. Symptoms are unchanged. mw
--- NOTE | 2020-10-17 22:53 | ER ---
Nurse's Notes [facility] Name: Diana Watson Age: 45 yrs Sex: Female : 1975 Arrival Date: 10/17/2020 Time: 17:02 Bed 28 Private MD: Diagnosis: Other chest pain Presentation: 10/17 17:10 Chief complaint: Patient states: CP and SOB for 1 day. + N/V this morning. + SOB, stool ll1 was dark and frothy today. EMS states: Fingerstick 109. IV x 3, no luck. EKG showed normal sinus rhythm. Aspirin 325 mg PO given en route. Neighbor gave her a BP pill and Buspar, states it helped her anxiety a little. Coronavirus screen: Client denies travel out of the [place] in the last 14 days. At this time, the client does not indicate any symptoms associated with coronavirus-19. Ebola Screen: Patient denies travel to an Ebola-affected area in the 21 days before illness onset. Initial Sepsis Screen: Does the patient meet any 2 criteria? No. Patient's initial sepsis screen is negative. Does the patient have a suspected source of infection? No. Patient's initial sepsis screen is negative. Risk Assessment: Do you want to hurt yourself or someone else? Patient reports no desire to harm self or others. Onset of symptoms was October 17, 2020. 17:10 Method Of Arrival: EMS ll1 17:10 Acuity: HUAN 3 ll1 LOSS PREVENTION GUARD: 20:58 LMP 2019 rr5 Historical: - Allergies: 17:13 Ancef (rash); ll1 - PMHx: 17:13 Alcoholism; Anxiety; Hypertension; mitral valve prolapse; Ulcers; ll1 - PSHx: 17:13 Cholecystectomy; ablation; ll1 - Immunization history:: Flu vaccine is not up to date. - Social history:: Smoking status: Patient reports the use of cigarette tobacco products, smokes one-half pack cigarettes per day, Patient/guardian denies using alcohol, street drugs, The patient lives with family. - Family history:: not pertinent. Screenin:34 Abuse screen: Denies threats or abuse. Denies injuries from another. Nutritional rr5 screening: No deficits noted. Tuberculosis screening: No symptoms or risk factors identified. Fall Risk IV access (20 points). Total Feldman Fall Scale indicates No Risk (0-24 pts). Assessment: 20:33 General: Appears in no apparent distress. uncomfortable, Behavior is calm, cooperative, rr5 appropriate for age. Pain: Complains of pain in chest Pain radiates to left arm Pain currently is 7 out of 10 on a pain scale. Quality of pain is described as aching, Pain began gradually, Is intermittent. Neuro: Level of Consciousness is awake, alert, obeys commands, Oriented to person, place, time, situation, Reports headache. Cardiovascular: Reports chest pain, Capillary refill < 3 seconds Patient's skin is warm and dry. Respiratory: Airway is patent Respiratory effort is even, unlabored, Respiratory pattern is regular, symmetrical. GI: No signs and/or symptoms were reported involving the gastrointestinal system. : No signs and/or symptoms were reported regarding the genitourinary system. EENT: No signs and/or symptoms were reported regarding the EENT system. Derm: Skin is intact, is healthy with good turgor, Skin temperature is warm. Musculoskeletal: Circulation, motion, and sensation intact. Capillary refill < 3 seconds. 22:00 Reassessment: Patient appears in no apparent distress at this time. Patient is alert, rr5 oriented x 3, equal unlabored respirations, skin warm/dry/pink. awaiting for results. 23:00 Reassessment: Patient appears in no apparent distress at this time. Patient is alert, rr5 oriented x 3, equal unlabored respirations, skin warm/dry/pink. reassessment by ED provider for admission. 10/18 00:10 Reassessment: Patient appears in no apparent distress at this time. Patient is alert, rr5 oriented x 3, equal unlabored respirations, skin warm/dry/pink. hospitalist at bedside. 01:00 Reassessment: Patient appears in no apparent distress at this time. Patient is alert, rr5 oriented x 3, equal unlabored respirations, skin warm/dry/pink. awaiting for room assignment. 01:52 Reassessment: Patient appears in no apparent distress at this time. Patient and/or rr5 family updated on plan of care and expected duration. Pain level reassessed. Patient is alert, oriented x 3, equal unlabored respirations, skin warm/dry/pink. Vital Signs: 10/17 17:10 BP 147 / 97; Pulse 81; Resp 17; Temp 98.5; Pulse Ox 100% ; Weight 65.77 kg; Height 5 ll1 ft. 8 in. (172.72 cm); Pain 6/10; 20:58 BP 173 / 94; Pulse 95; Resp 20; Pulse Ox 100% ; rr5 22:00 BP 161 / 95; Pulse 93; Resp 17; Pulse Ox 100% ; rr5 22:42 BP 155 / 92; Pulse 90; Resp 16; Pulse Ox 98% ; rr5 23:40 BP 153 / 90; Pulse 92; Resp 16; Pulse Ox 98% ; Pain 8/10; rr5 10/18 01:00 BP 141 / 85; Pulse 80; Resp 16; Pulse Ox 99% ; rr5 01:48 BP 139 / 78; Pulse 85; Resp 17; Pulse Ox 99% ; rr5 10/17 17:10 Body Mass Index 22.05 (65.77 kg, 172.72 cm) ll1 ED Course: 10/17 17:02 Patient arrived in ED. ds1 17:13 Triage completed. ll1 17:13 Arm band placed on. ll1 20:22 Nirmal Merchant, CARLY is Primary Nurse. rr5 20:29 Yair Silvestre MD is Attending Physician. ma2 20:30 Missed attempt(s): 20 gauge in left antecubital area. vg1 20:35 Patient has correct armband on for positive identification. Placed in gown. Bed in low rr5 position. Call light in reach. residential monitor on. Pulse ox on. NIBP on. 20:50 Inserted saline lock: 20 gauge in right wrist, using aseptic technique. Blood collected.rr5 20:57 XRAY Chest (1 view) In Process Unspecified. EDMS 21:48 Urine collected: clean catch specimen, josue colored. vg1 22:51 Bayron Madden is Hospitalizing Provider. ma2 23:05 COVID swab sent to lab. rr5 10/18 00:00 No provider procedures requiring assistance completed. Patient maintains SpO2 rr5 saturation greater than 95% on room air. 01:43 Patient admitted, IV remains in place. intact, No redness/swelling at site. rr5 Administered Medications: 10/17 20:55 Drug: NS 0.9% 1000 ml Route: IV; Rate: 1 bolus; Site: right wrist; rr5 22:00 Follow up: Response: No adverse reaction; IV Status: Completed infusion; IV Intake: rr5 1000ml 20:55 Drug: Pepcid (famotidine) 20 mg Route: IVP; Site: right wrist; rr5 22:00 Follow up: Response: No adverse reaction rr5 20:57 Drug: Zofran (Ondansetron) 4 mg Route: IVP; Site: right wrist; rr5 22:05 Follow up: Response: No adverse reaction rr5 20:58 Drug: morphine 4 mg {Note: rass 0.} Route: IVP; Site: right wrist; rr5 22:00 Follow up: Response: No adverse reaction rr5 23:50 Drug: Zofran (Ondansetron) 4 mg Route: IVP; Site: right wrist; rr5 10/18 01:00 Follow up: Response: No adverse reaction rr5 10/17 23:52 Drug: morphine 4 mg {Note: rass 0.} Route: IVP; Site: right wrist; rr5 10/18 01:00 Follow up: Response: No adverse reaction; Pain is decreased; RASS: Alert and Calm (0) rr5 10/17 23:57 Drug: Potassium Chloride 20 mEq Route: IV; Rate: calculated rate; Site: right wrist; rr5 10/18 01:52 Follow up: Response: No adverse reaction; IV Status: Completed infusion; IV Intake: rr5 100ml Intake: 10/17 22:00 IV: 1000ml; Total: 1000ml. rr5 10/18 01:52 IV: 100ml; Total: 1100ml. rr5 Outcome: 10/17 22:52 Decision to Hospitalize by Provider. [facility] 10/18 01:51 Admitted to Med/surg accompanied by tech, via stretcher, room 221, with chart, Report rr5 called to carco Condition: stable Instructed on the need for admit. 02:23 Patient left the ED. rr5 Signatures: Dispatcher [employer] EDDE Karen Benavides Mohammad, MD MD ma2 Nirmal Merchant, RN RN rr5 Rachelle Guzman RN RN vg1 Nubia Chavarria RN RN ll1
[2020-10-17] MEDS ORDERED: KCL 20 MEQ/100 mL IVPB 20 MEQ/100 ML BAG IV ONE (23:58)
[2020-10-17] MEDS ORDERED: NA CHLORIDE 0.9% 250 ML ONE (23:58)
[2020-10-18] MEDS ORDERED: MORPHINE 2 MG/ML SYR IV PRN (01:41)
[2020-10-18] MEDS ORDERED: NITROGLYCERIN 0.4 MG/TAB SL PRN (01:41)
[2020-10-18] MEDS ORDERED: LORazepam 2 MG/ML VIAL IV PRN (01:41)
[2020-10-18] MEDS ORDERED: ACETAMINOPHEN 500 MG TAB PO PRN (02:04)
[2020-10-18] MEDS ORDERED: ONDANSETRON 4 MG/2 ML VIAL IV PRN (02:04)
[2020-10-18 02:29] LABS: Barbiturates NEGATIVE (NEGATIVE); Benzodiazepines NEGATIVE (NEGATIVE); Cocaine NEGATIVE (NEGATIVE); METHAMPHETAM NEGATIVE (NEGATIVE); Methadone NEGATIVE (NEGATIVE); Opiates POSITIVE (NEGATIVE); Phencyclidine NEGATIVE (NEGATIVE); THC Cannibis NEGATIVE (NEGATIVE)
[2020-10-18 02:45] VITALS: BMI 25.7
[2020-10-18 03:18] LABS: Urine Bacteria >50 /HPF (<20); Urine Mucus 1+ /HPF (NONE SEEN); Urine RBC <5 /HPF (NONE SEEN)
[2020-10-18 03:23] VITALS: O2SAT 98
[2020-10-18] MEDS ORDERED: NA CHLORIDE 0.9% 1,000 ML ONE (03:39)
[2020-10-18] MEDS ORDERED: NA CHLORIDE 0.9% 1,000 ML IV SCH (04:00)
[2020-10-18 04:17] LABS: Thyroid Stimulating Hormone 3.72 uIU/mL (0.360-3.740)
--- NOTE | 2020-10-18 04:35 | P.HP ---
Certification for Inpatient Patient admitted to: Observation With expected LOS: <2 Midnights Patient will require the following post-hospital care: None Practitioner: I am a practitioner with admitting privileges, knowledge of patient current condition, hospital course, and medical plan of care. Services: Services provided to patient in accordance with Admission requirements found in Title 42 Section 412.3 of the Code of Federal Regulations <Car Mcdermott - Last Filed: 10/18/20 04:25> Patient History Date of Service: 10/17/20 Reason for admission: chest pain History of Present Illness: Ms. Watson is a 45 yo female with history of mitral valve prolapse, HTN, alcohol use disorder presents today with 9/10 intermittent sharp sternal chest pain starting yesterday, worse with walking, improved with lying down with her feet up. She says this has happened before but never this bad. She reports SOB, nausea, vomiting, and diaphoresis with episodes. She reports weakness, night sweats, chills, lightheadedness, dizziness, numbness and tingling in feet. Previous notes associate these symptoms with alcohol use, patient noncompliant with medications. She reports an episode of black, tarry stools this morning. FOBT negative. Hgb/Hct stable, no other bleeding source. Smokes 1/2ppd, drinks 3-4 rum&cokes a day. Father had a CABG. H/H 10.5/33.9. MCV 68. K 3.0. - Past Medical/Surgical History Has patient received pneumonia vaccine in the past: No Diabetic: No -: HTN -: anxiety -: depression -: mitral valve prolapse -: Hypokalemia -: chronic alcohol abuse -: appendectomy -: cholecystectomy -: endometrial ablation - Family History Father -: Heart disease, Hypertension Notes: had triple bypass Mother -: Heart disease, Hypertension, Diabetes Notes: ENDOCARDITIS Sister -: Hypertension, Kidney disease Notes: Also had a sister pass from GI disease - Social History Smoking Status: Current every day smoker Smoking therapy provided: Yes Patient receptive to therapy: No Alcohol use: Yes CD- Drugs: No Caffeine use: Yes Place of Residence: Home <Car Mcdermott Stephanie - Last Filed: 10/18/20 04:25> Date of Service: 10/18/20 <marek mcdaniel - Last Filed: 10/18/20 10:58> Allergies cefazolin sodium [From Anc] Allergy (Intermediate, Verified 10/18/20 02:45) Rash Home Medications: Metoprolol Succinate [Toprol Xl*] 50 mg PO BID 6AM 6PM #60 tab 02/25/20 hydroCHLOROthiazide [Hydrodiuril*] 12.5 mg PO DAILY #30 tab 02/25/20 Pantoprazole [Protonix Tab] 40 mg PO DAILY #30 tab 10/18/20 Review of Systems General: Chills, Sweats, Weakness, Malaise, As per HPI Eyes: Unremarkable ENT: Unremarkable Respiratory: Shortness of Breath, As per HPI Cardiovascular: Chest Pain, Light Headedness, As per HPI Gastrointestinal: Nausea, Vomiting, Melena, As per HPI Genitourinary: Unremarkable Musculoskeletal: Unremarkable Integumentary: Unremarkable Neurological: Weakness, Numbness, As per HPI Lymphatics: Unremarkable <Car Mcdermott - Last Filed: 10/18/20 04:25> Physical Examination - Vital Signs Temperature: 98.5 F Blood Pressure: 147/97 Pulse: 81 Respirations: 18 Pulse Ox (%): 95 - Physical Exam General: Alert, In no apparent distress, Oriented x3, Cooperative HEENT: Atraumatic, Normocephalic, PERRLA, Mucous membr. moist/pink, Other (major tooth decay, no abscess seen or palpated), EOMI, Sclerae nonicteric Neck: Supple, 2+ carotid pulse no bruit, JVD not distended, No Thyromegaly, No LAD Respiratory: Clear to auscultation bilaterally, Normal air movement Cardiovascular: No edema, Normal pulses, Regular rate/rhythm, Normal S1 S2, No gallops, No rubs, No murmurs Capillary refill: <2 Seconds Gastrointestinal: Normal bowel sounds, Soft and benign, Non-distended, No ascites, No tenderness, No masses, No rebound, No guarding, Other (FOBT negative) Musculoskeletal: No clubbing, No swelling, No contractures, No erythema, No tenderness, No warmth Integumentary: No rashes, No breakdown, No significant lesion, No tenderness/swelling, No erythema, No warmth, No cyanosis Neurological: Normal gait, Normal speech, Normal strength at 5/5 x4 extr, Normal tone, Sensation intact, Cranial nerves 3-12 intact, Normal affect Lymphatics: No axilla or inguinal lymphadenopathy - Studies Laboratory Data (last 24 hrs) 10/17/20 20:48: PT 11.4, INR 0.99 10/17/20 20:48: WBC 6.40, Hgb 10.5 L, Hct 33.9 L, Plt Count 205 10/17/20 20:48: Sodium 136, Potassium 3.0 L, BUN 8, Creatinine 0.55, Glucose 86, Magnesium 1.9, Total Bilirubin 0.6, AST 26, ALT 22, Alkaline Phosphatase 85 <Car Mcdermott - Last Filed: 10/18/20 04:25> - Studies Laboratory Data (last 24 hrs) 10/18/20 03:35: Troponin I < 0.02 10/17/20 20:48: PT 11.4, INR 0.99 10/17/20 20:48: WBC 6.40, Hgb 10.5 L, Hct 33.9 L, Plt Count 205 10/17/20 20:48: Sodium 136, Potassium 3.0 L, BUN 8, Creatinine 0.55, Glucose 86, Magnesium 1.9, Total Bilirubin 0.6, AST 26, ALT 22, Alkaline Phosphatase 85 <marek mcdaniel - Last Filed: 10/18/20 10:58> Assessment and Plan - Problems (Diagnosis) (1) Anemia Onset Date: 04/11/15 Current Visit: No Status: Chronic Qualifiers: Anemia type: unspecified type Qualified Code(s): D64.9 - Anemia, unspecified (2) Chest pain Onset Date: 11/07/14 Current Visit: No Status: Acute Qualifiers: Chest pain type: unspecified Qualified Code(s): R07.9 - Chest pain, unspecified (3) Hypertension Onset Date: 11/07/14 Current Visit: No Status: Chronic Qualifiers: Hypertension type: essential hypertension Qualified Code(s): I10 - Essential (primary) hypertension (4) Hypokalemia Onset Date: 04/11/15 Current Visit: No Status: Acute (5) Alcohol abuse Onset Date: 06/01/17 Current Visit: No Status: Chronic (6) Alcoholic peripheral neuropathy Current Visit: No Status: Chronic - Plan - cardiology consulted, trending trops and EKG, initial trops and EKG wnl - morphine and nitro PRN - reconcile and restart home medications - lipid panel, TSH/T4 pending - potassium replacement protocol - CIWA protocol, ativan PRN if tremors - iron panel pending - abdominal ultrasound pending Discharge Plan: Home Plan to discharge in: 24 Hours - Advance Directives Does patient have a Living Will: No Does patient have a Durable POA for Healthcare: No - Code Status/Comfort Care Code Status Assessed: Yes (full code) Critical Care: No Time Spent Managing Pts Care (In Minutes): 70 <Car Mcdermott - Last Filed: 10/18/20 04:25> Physician Review: Patient Assessed, Agree with Above Assessment and Plan Physician Review Additional Text: Chest pain. History of alcohol abuse. Hypokalemia Plan: Trend troponin. PPI for possible acid reflux Replete potassium. Most recent echocardiogram shows normal heart valves. No report of mitral valve prolapse. <marek mcdaniel - Last Filed: 10/18/20 10:58>
[2020-10-18] MEDS ORDERED: KCL 20 MEQ/100 mL IVPB 20 MEQ/100 ML BAG IV SCH (05:00)
[2020-10-18] MEDS ORDERED: METOPROLOL XL 50 MG TAB PO SCH (06:00)
[2020-10-18] MEDS ORDERED: SODIUM CHLORIDE 0.9% 10ML INJ IV PRN (08:53)
[2020-10-18] MEDS: POTASSIUM CL SA 10 MEQ TAB PO SCH ×2 (08:57→10:01)
[2020-10-18] MEDS ORDERED: PANTOPRAZOLE 40 MG INJ IVP SCH (09:00)
[2020-10-18] MEDS ORDERED: hydroCHLOROthiazide 25 MG TAB PO SCH (09:00)
[2020-10-18] MEDS ORDERED: ENOXAPARIN 40 MG/0.4 ML SQ SCH (09:00)
--- NOTE | 2020-10-18 10:34 | RAD REPORT ---
EXAM DESCRIPTION: US - Abdomen Exam Complete - 10/18/2020 10:22 am CLINICAL HISTORY: Abdominal pain COMPARISON: 2019 FINDINGS: The liver has an increased echotexture. Cholecystectomy. The biliary tree is normal caliber. The pancreas is normal in size and echotexture The right kidney measures 11 centimeters with a normal echotexture. The left kidney measures 12 centimeters with a normal echotexture. The spleen measures 11 centimeters. The abdominal aorta and inferior vena cava appear unremarkable IMPRESSION: Increased hepatic echotexture consistent with fatty infiltration
--- NOTE | 2020-10-18 11:12 | EKG ---
Test Date: 2020-10-17 Test Time: 17:20:04 Firer Boiler: RENZO MEASUREMENT RESULTS: Intervals: Rate: 80 OK: 160 QRSD: 82 QT: 406 QTc: 468 [place]: P: 64 OK: 160 QRS: 66 T: 60 INTERPRETIVE STATEMENTS: Normal sinus rhythm Normal ECG Compared to ECG 02/18/2020 20:52:58 Sinus tachycardia no longer present ST (T wave) deviation no longer present Electronically Signed On 10-18-20 11:11:11 CDT by Demond Henry
--- NOTE | 2020-10-18 11:17 | P.DS ---
Admission Date: 10/18/20 Discharge Date: 10/18/20 Disposition: ROUTINE DISCHARGE Discharge Condition: FAIR Reason for Admission: chest pain Brief History of Present Illness: 45-year-old woman with a history of hypertension, chronic alcohol abuse, obesity who claims history of mitral valve prolapse and echocardiogram reports normal valves presented to the emergency department with a complaint of substernal chest pain, associated tingling numbness in legs and diaphoresis. Her initial troponin in the ED was negative. EKG nonspecific ST-T changes. Chest x-ray unremarkable. The patient had hypokalemia. The patient was placed under observation for ACS rule out. Hospital Course: Troponin trended negative. In her substernal pain and heart burn was deemed related to acid reflux or gastritis given her history of alcoholism. The patient has been started on a trial of Protonix. ACS has been ruled out. Patient deemed clinically stable for discharge. She will follow with Dr. Henry for arrangement for stress test. Vital Signs/Physical Exam: Temp Pulse Resp BP Pulse Ox 97.1 F 71 16 153/91 H 100 10/18/20 08:00 10/18/20 08:55 10/18/20 08:00 10/18/20 08:55 10/18/20 08:00 General: Alert, In no apparent distress Neck: Supple, JVD not distended Respiratory: Clear to auscultation bilaterally, Normal air movement Cardiovascular: No edema, Regular rate/rhythm, Normal S1 S2 Gastrointestinal: Soft and benign, Non-distended, No tenderness Musculoskeletal: No swelling Integumentary: No rashes Neurological: Normal strength at 5/5 x4 extr Laboratory Data at Discharge: WBC 6.40 K/uL (4.3-10.9) 10/17/20 20:48 Hgb 10.5 g/dL (12.0-15.0) L 10/17/20 20:48 Hct 33.9 % (36.0-45.0) L 10/17/20 20:48 Plt Count 205 K/uL (152-406) 10/17/20 20:48 PT 11.4 SECONDS (9.5-12.5) 10/17/20 20:48 INR 0.99 10/17/20 20:48 Sodium 136 mmol/L (136-145) 10/17/20 20:48 Potassium 3.0 mmol/L (3.5-5.1) L 10/17/20 20:48 BUN 8 mg/dL (7-18) 10/17/20 20:48 Creatinine 0.55 mg/dL (0.55-1.3) 10/17/20 20:48 Glucose 86 mg/dL (74-106) 10/17/20 20:48 Magnesium 1.9 mg/dL (1.8-2.4) 10/17/20 20:48 Total Bilirubin 0.6 mg/dL (0.2-1.0) 10/17/20 20:48 AST 26 U/L (15-37) 10/17/20 20:48 ALT 22 U/L (12-78) 10/17/20 20:48 Alkaline Phosphatase 85 U/L (45-117) 10/17/20 20:48 Troponin I Cancelled 10/18/20 12:00 Home Medications: Metoprolol Succinate [Toprol Xl*] 50 mg PO BID 6AM 6PM #60 tab 02/25/20 hydroCHLOROthiazide [Hydrodiuril*] 12.5 mg PO DAILY #30 tab 02/25/20 Pantoprazole [Protonix Tab] 40 mg PO DAILY #30 tab 10/18/20 New Medications: Pantoprazole [Protonix Tab] 40 mg PO DAILY #30 tab Diet: AHA Activity: Ad ronaldo Followup: NONE,NONE [Primary Care Provider] -
[2020-10-18 12:07] VITALS: BP 137/82; TEMP 97.2
--- NOTE | 2020-10-18 14:00 | CON ---
Date of Consultation: 10/18/2020 Reason For Consultation: Chest pain. History Of Present Illness: Ms. Watson is a 45-year-old woman who has a history of alcohol use, hype rtension and came in with mid epigastric pain that did not radiate anywhere, it was not exertional, i t has been going on for about 2 to 3 days. No nausea, vomiting, diaphoresis, PND, orthopnea, pedal e amalia, palpitations, or syncope. She has ruled out for so far. Her hemoglobin is 11.5, potassium of 3.0. Troponin is negative. BNP is negative. She had opiates that were positive by urinalysis. She still has some mid epigastric pain, but it is much better. Past Medical History: As stated above. Allergies: INCLUDES CEFAZOLIN. Review of Systems: Negative. Social History: Negative. Family History: Noncontributory. Medications: At home include metoprolol, hydrochlorothiazide. Physical Examination: Vital Signs: Stable, afebrile. General: She was in no acute distress. HEENT: Negative. Neck: Supple without adenopathy, JVD, thyromegaly. Chest: Clear to auscultation and percussion. Cardiac: Exam revealed a regular rhythm and rate without any murmurs, gallops, or rubs. Abdomen: Obese, but benign. Extremities: Revealed no clubbing, cyanosis, or edema. Diagnostic Data: As stated earlier. Chest x-ray is negative. EKG is negative. Impression And Plan: I think Ms. Watson's symptoms are secondary to esophagitis or gastritis, possib ly pancreatitis. I think she needs to have her potassium replaced. She needs to be on a proton pump inhibitor. I think we are dealing with an acute coronary syndrome. I am comfortable with her going to follow up with her primary care physician in near future. I will continue her metoprolol, hydroc hlorothiazide, and put on some potassium supplements at home and put on proton pump inhibitor at home . FLACO/TREVOR Voice ID: [id number] Report ID: [id number]
== END 2020-10-18 14:18 | disposition home or self-care (01) | DRG 392 ==
LOC: ER 16:58 → 2ND 10-18 01:44 → OBSVTOIN 10-18 08:46
PROVIDERS: ADMIT Internal Medicine; ATTEND Internal Medicine
DX: K21.9 Gastro-esophageal reflux disease without esophagitis (principal); F10.188 Alcohol abuse with other alcohol-induced disorder; K29.20 Alcoholic gastritis without bleeding; E87.6 Hypokalemia; G62.1 Alcoholic polyneuropathy; I10 Essential (primary) hypertension; D64.9 Anemia, unspecified; F17.210 Nicotine dependence, cigarettes, uncomplicated; Z91.14 Patient's other noncompliance with medication regimen; Z79.899 Other long term (current) drug therapy; Z90.49 Acquired absence of other specified parts of digestive tract; Z20.822 Contact with and (suspected) exposure to COVID-19
CPT/HCPCS: 36415; 71045; 76700; 80048; 80076; 80307; 80320; 81003; 81015; 81025; 82728; 83540; 83735; 83880; 84439; 84443; 84466; 84484; 85025; 85610; 87086; 87088; 93005; 94760; 96361; 96365; 96366; 96375; 99285; C9113; G0378; J1650; J2270; J2405; J3480; J7030; J7050; U0003

== ENCOUNTER 2020-10-26 01:40 | Inpatient (IN) | payer SELFPAY ==
--- OUTSIDE RECORDS SUMMARY | 2020-10-26 01:44 | XMS REPORT | Continuity of Care Document ---
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 SERUM QUAL (test NEGATIVE NEGATIVE This HC GQL test is NOT code = HCGQL) applicable for MALE patients.Check with nurse about probable order error.If Tumor Marker Test needed, nu rse should order test "HCG TU"(Test #[id number])---- - CBC W/O [id number] 01:37:00 Test Item Value Reference Range Interpretation [...]
[2020-10-26] MEDS ORDERED: KETOROLAC 30 MG/ML INJ ONE (02:36)
[2020-10-26] MEDS ORDERED: NA CHLORIDE 0.9% 1,000 ML ONE ×4 (02:36→19:42)
[2020-10-26 02:49] LABS: Protime INR 1.01
[2020-10-26 02:51] LABS: Absolute Lymphocytes (CBC) 0.7 K/uL (0.7-4.9); Basophils % 0.4 % (0-1.3); Hematocrit 38.7 % (36.0-45.0); Lymphocytes % 8.3 % (15.3-44.8); MPV 9.1 fL (7.6-11.3); RBC Red Blood Cell Count 5.41 M/uL (3.86-4.86)
[2020-10-26 03:05] LABS: ALT/SGPT 36 U/L (12-78); AST/SGOT 58 U/L (15-37); Albumin 4.4 g/dL (3.4-5.0); Alkaline Phosphatase 83 U/L (45-117); BUN Blood Urea Nitrogen 6 mg/dL (7-18); Bilirubin Direct 0.4 mg/dL (0-0.2); Bilirubin Total 1.4 mg/dL (0.2-1.0); Glucose Level 98 mg/dL (74-106); Magnesium 1.9 mg/dL (1.8-2.4); NT PRO-BNP 352 pg/mL (<125); Potassium 4.2 mmol/L (3.5-5.1); Protein, Total 9.6 g/dL (6.4-8.2); Sodium Level 130 mmol/L (136-145); Troponin (Emerg Dept Use Only) < 0.02 ng/mL (0.0-0.045)
[2020-10-26 03:06] LABS: Bicarbonate 9 mmol/L (21-32)
[2020-10-26 03:34] LABS: Lipase 132 U/L (73-393)
[2020-10-26 03:43] LABS: Arterial Blood Carboxyhemoglob 1.6 % (0-1.5); Blood Gas Oxyhemoglobin 94.8 % (94-97); Blood O2 Saturation 97.4 % (92-98.5)
[2020-10-26] MEDS ORDERED: ONDANSETRON 4 MG/2 ML VIAL ONE (03:43)
[2020-10-26 03:46] LABS: Barbiturates NEGATIVE (NEGATIVE); Benzodiazepines NEGATIVE (NEGATIVE); Cocaine NEGATIVE (NEGATIVE); METHAMPHETAM NEGATIVE (NEGATIVE); Methadone NEGATIVE (NEGATIVE); Opiates NEGATIVE (NEGATIVE); Phencyclidine NEGATIVE (NEGATIVE); THC Cannibis NEGATIVE (NEGATIVE)
[2020-10-26 03:52] LABS: Urine Specific Gravity/Preg >1.030 (1.005-1.030)
[2020-10-26] MEDS ORDERED: SODIUM BICARB 50 MEQ/50ML VIAL ONE (04:07)
[2020-10-26 04:09] LABS: Anisocytosis 1+; Blood Morphology Comment NOTED (NOT SEEN); Hypochromasia 2+; Platelet Estimate ADEQ
--- NOTE | 2020-10-26 04:13 | EDPHYS ---
Physician Documentation [facility] Name: Diana Watson Age: 45 yrs Sex: Female : 1975 Arrival Date: 10/26/2020 Time: 01:41 Bed 7 Private MD: None, None ED Physician Ángel Camacho HPI: 10/26 03:40 This 45 yrs old Female presents to ER via EMS with complaints of Chest Pain > tw4 29 y/o - occured after arguement, Anxiety. 03:40 The patient or guardian reports chest pain that is located primarily in the anterior tw4 chest wall. Onset: just prior to arrival, today. The pain does not radiate. Associated signs and symptoms: The patient has no apparent associated signs or symptoms. The chest pain is described as dull. Duration: The patient or guardian reports a single episode. Severity of pain: At its worst the pain was moderate in the emergency department the pain is unchanged. The patient has not experienced similar symptoms in the past. RATER ASSOCIATE: 03:00 LMP N/A - Post-menopause lp1 Historical: - Allergies: 01:43 Ancef (rash); sg - PMHx: 01:43 Alcoholism; Anxiety; Hypertension; mitral valve prolapse; Ulcers; sg - PSHx: 01:43 Cholecystectomy; cardiac ablation; sg - Immunization history:: Adult Immunizations unknown. - Social history:: Smoking status: Patient reports the use of cigarette tobacco products, smokes one-half pack cigarettes per day, Patient/guardian denies using alcohol, street drugs. ROS: 03:40 Constitutional: Negative for fever, chills, and weight loss, Eyes: Negative for injury, tw4 pain, redness, and discharge, Respiratory: Negative for shortness of breath, cough, wheezing, and pleuritic chest pain, Abdomen/GI: Negative for abdominal pain, nausea, vomiting, diarrhea, and constipation, Back: Negative for injury and pain, MS/Extremity: Negative for injury and deformity, Skin: Negative for injury, rash, and discoloration, Neuro: Negative for headache, weakness, numbness, tingling, and seizure. 03:40 Cardiovascular: Positive for chest pain. Exam: 03:40 Constitutional: This is a well developed, well nourished patient who is awake, alert, tw4 and in no acute distress. Head/Face: Normocephalic, atraumatic. Chest/axilla: Normal chest wall appearance and motion. Nontender with no deformity. No lesions are appreciated. Respiratory: Lungs have equal breath sounds bilaterally, clear to auscultation and percussion. No rales, rhonchi or wheezes noted. No increased work of breathing, no retractions or nasal flaring. Abdomen/GI: Soft, non-tender, with normal bowel sounds. No distension or tympany. No guarding or rebound. No evidence of tenderness throughout. Back: No spinal tenderness. No costovertebral tenderness. Full range of motion. Skin: Warm, dry with normal turgor. Normal color with no rashes, no lesions, and no evidence of cellulitis. MS/ Extremity: Pulses equal, no cyanosis. Neurovascular intact. Full, normal range of motion. Neuro: Awake and alert, GCS 15, oriented to person, place, time, and situation. Cranial nerves II-XII grossly intact. Motor strength 5/5 in all extremities. Sensory grossly intact. Cerebellar exam normal. Normal gait. 03:40 Cardiovascular: Rate: tachycardic, Rhythm: regular, Pulses: no pulse deficits are appreciated. Vital Signs: 01:43 BP 174 / 109; Pulse 117; Resp 18; Temp 98.2(O); Pulse Ox 100% on R/A; Weight 70.31 kg jb4 (R); Height 5 ft. 7 in. (170.18 cm) (R); Pain 9/10; 02:16 BP 150 / 97; Pulse 116; Resp 20; Pulse Ox 100% on R/A; Pain 9/10; lp1 02:35 BP 141 / 80; Pulse 111; Resp 18; Pulse Ox 100% on R/A; lp1 03:30 BP 165 / 99; Pulse 119; Resp 20; Pulse Ox 100% on R/A; lp1 04:00 BP 160 / 97; Pulse 119; Resp 21; Temp 99.1(O); Pulse Ox 100% on R/A; lp1 05:51 BP 147 / 83; Pulse 114; Resp 20; Pulse Ox 100% on R/A; lp1 06:04 BP 136 / 81; Pulse 106; Resp 15; Pulse Ox 100% on R/A; lp1 01:43 Body Mass Index 24.28 (70.31 kg, 170.18 cm) MDM: 01:43 Patient medically screened. 04:47 Differential diagnosis: acute myocardial infarction, acute pericarditis, pancreatitis, tw4 peptic ulcer disease, pericarditis, pulmonary embolus. Data reviewed: vital signs, nurses notes. Data interpreted: Pulse oximetry: Interpretation: normal. Counseling: I had a detailed discussion with the patient and/or guardian regarding: the historical points, exam findings, and any diagnostic results supporting the discharge/admit diagnosis, lab results, radiology results. Special discussion: Based on the patient's history, exam, and Dx evaluation, there is no indication for emergent intervention or inpatient Tx. It is understood by the patient/guardian that if the Sx's persist or worsen they need to return immediately for re-evaluation. I discussed with the patient/guardian in detail that at this point there is no indication for admission to the hospital. It is understood, however, that if the symptoms persist or worsen the patient needs to return immediately for re-evaluation. 10/26 01:43 Order name: Basic Metabolic Panel 10/26 01:43 Order name: CBC with Diff; Complete Time: 04:17 10/26 01:43 Order name: LFT's 10/26 01:43 Order name: Magnesium 10/26 01:43 Order name: NT PRO-BNP 10/26 01:43 Order name: PT-INR; Complete Time: 03:06 10/26 01:43 Order name: Troponin (emerg Dept Use Only) 10/26 02:09 Order name: Alcohol Level; Complete Time: 03:06 10/26 03:06 Interpretation: Within normal limits. 10/26 02:09 Order name: UDS; Complete Time: 03:54 10/26 02:51 Order name: Manual Differential; Complete Time: 04:17 EDMS 10/26 03:15 Order name: Lactate 10/26 03:22 Order name: Lipase 10/26 03:22 Order name: ABG; Complete Time: 03:53 10/26 03:28 Order name: Lipase EDMS 10/26 03:29 Order name: Urine Microscopic Only; Complete Time: 04:25 [facility] 10/26 03:31 Order name: Urine --Ancillary (enter results); Complete Time: 03:54 tt3 10/26 04:12 Order name: COVID-19 : Document "Date of Symptom Onset" if Symptomatic. tt3 10/26 04:13 Order name: CORONAVIRUS EDMS 10/26 04:13 Order name: Phosphorus lp1 10/26 04:13 Order name: Blood Culture Adult (2) lp1 10/26 04:13 Order name: Procalcitonin lp1 10/26 04:14 Order name: Phosphorus EDMS 10/26 04:14 Order name: Blood Culture EDMS 10/26 04:26 Order name: Phosphorus; Complete Time: 04:37 EDMS 10/26 04:36 Order name: Urine Dipstick-Ancillary EDMS 10/26 04:43 Order name: Ketone, Serum la1 10/26 04:45 Order name: BMP lp1 10/26 05:15 Order name: Acetone Level EDMS 10/26 05:21 Order name: SARS-COV-2 RT PCR EDMS 10/26 01:43 Order name: XRAY Chest (1 view) tw4 10/26 01:43 Order name: EKG; Complete Time: 01:44 tw4 10/26 01:43 Order name: Cardiac monitoring; Complete Time: 02:17 tw4 10/26 01:43 Order name: EKG - Nurse/Tech; Complete Time: 02:17 tw4 10/26 01:43 Order name: IV Saline Lock; Complete Time: 02:17 tw4 10/26 01:43 Order name: Labs collected and sent; Complete Time: 02:17 tw4 10/26 01:43 Order name: O2 Per Protocol; Complete Time: 02:17 tw4 10/26 01:43 Order name: O2 Sat Monitoring; Complete Time: 02:17 tw4 10/26 03:15 Order name: CT Chest For PE Angio tw4 10/26 03:15 Order name: CT Abd/Pelvis - IV Contrast Only tw10/26 04:25 Order name: Misc. Order: Please repeat BMP at 0500; Complete Time: 04:26 la1 10/26 05:27 Order name: Basic Metabolic Panel EDMS EC:55 Rate is 115 beats/min. Rhythm is regular. QRS [place] is Normal. SD interval is normal. tw4 QRS interval is normal. QT interval is normal. No Q waves. T waves are Peaked in leads V3, V4, V5, V6. No ST changes noted. Clinical impression: Sinus tachycardia. Interpreted by me. Reviewed by me. Administered Medications: 02:20 Drug: NS 0.9% 1000 ml Route: IV; Rate: 1 bolus; Site: left antecubital; lp1 04:09 Follow up: IV Status: Completed infusion; IV Intake: 1000ml lp1 02:20 Drug: TORadol 30 mg Route: IVP; Site: left antecubital; lp1 03:35 Follow up: Response: No adverse reaction; No change in condition; Pain is unchanged, lp1 physician notified 03:35 Drug: NS 0.9% (30 ml/kg) 30 ml/kg Route: IV; Rate: bolus; Site: right forearm; lp1 06:01 Follow up: IV Status: Completed infusion; IV Intake: 1000ml lp1 03:35 Drug: Zofran (Ondansetron) 4 mg Route: IVP; Site: right antecubital; lp1 04:13 Follow up: Response: Nausea is decreased lp1 04:08 Drug: Sodium Bicarbonate 1 amp Route: IVP; Site: right antecubital; lp1 04:45 Follow up: Response: No adverse reaction lp1 04:09 Drug: fentaNYL (PF) 25 mcg Route: IVP; Site: right antecubital; lp1 04:45 Follow up: Response: Pain is decreased lp1 04:25 Drug: Ativan 1 mg Route: IVP; Site: right antecubital; lp1 05:15 Follow up: Response: Marked relief of symptoms lp1 05:49 Drug: Thiamine 100 mg Route: IV; Rate: calculated rate; Site: left upper arm; lp1 06:02 Follow up: IV Status: Completed infusion lp1 Disposition: 10/26/20 04:13 Hospitalization ordered by Tyrone Syed for Inpatient Admission. Preliminary diagnosis are Alcohol dependence with withdrawal, Metabolic acidemia, unspecified, Nausea with vomiting, unspecified, Diarrhea, unspecified, ALCOHOL KETOACIDOSIS. - Bed requested for Telemetry/MedSurg (Inpatient). - Status is Inpatient Admission. lp1 - Condition is Stable. - Problem is new. - Symptoms have improved. Signatures: Dispatcher [employer] EDMS Zachery Rivera RN RN sg Krystina Cervantes RN RN lp1 David Mac, TANKER SERVICEMAN-C TANKER SERVICEMAN-Cla1 Dougie Osorio, CARLY RN jb4 Ángel Camacho MD MD tw4 Edis Rodgers tt3 Corrections: (The following items were deleted from the chart) 03:28 03:23 Lipase ordered. EDGA EDMS 04:47 04:13 Hospitalization Ordered by Tyrone Syed DO for Inpatient Admission. Preliminary tw4 diagnosis is Alcohol dependence with withdrawal; Metabolic acidemia, unspecified; Nausea with vomiting, unspecified; Diarrhea, unspecified. Bed requested for Telemetry/MedSurg (Inpatient). Status is Inpatient Admission. Condition is Stable. Problem is new. Symptoms have improved. tw4 05:27 04:47 10/26/2020 04:13 Hospitalization Ordered by Tyrone Syed DO for Inpatient tt3 Admission. Preliminary diagnosis is Alcohol dependence with withdrawal; Metabolic acidemia, unspecified; Nausea with vomiting, unspecified; Diarrhea, unspecified; ALCOHOL KETOACIDOSIS. Bed requested for Telemetry/MedSurg (Inpatient). Status is Inpatient Admission. Condition is Stable. Problem is new. Symptoms have improved. tw4 06:05 05:27 10/26/2020 04:13 Hospitalization Ordered by Tyrone Syed DO for Inpatient lp1 Admission. Preliminary diagnosis is Alcohol dependence with withdrawal; Metabolic acidemia, unspecified; Nausea with vomiting, unspecified; Diarrhea, unspecified; ALCOHOL KETOACIDOSIS. Bed requested for Telemetry/MedSurg (Inpatient). Status is Inpatient Admission. Condition is Stable. Problem is new. Symptoms have improved. tt3
--- NOTE | 2020-10-26 04:13 | ER ---
Nurse's Notes [facility] Name: Diana Watson Age: 45 yrs Sex: Female : 1975 Arrival Date: 10/26/2020 Time: 01:41 Bed 7 Private MD: None, None Diagnosis: Alcohol dependence with withdrawal;Metabolic acidemia, unspecified;Nausea with vomiting, unspecified;Diarrhea, unspecified;ALCOHOL KETOACIDOSIS Presentation: 10/26 01:43 Chief complaint: Patient states: I took 325 of ASA prior to coming to the hospital EMS jb4 states: PT reports having chest pain that radiates to her left leg. Pt reports having anxiety and having episodes like this in the past. Her mother and brother were arguing and she started to feel anxious. We did not give ASA as she took her own. BGL 109. Coronavirus screen: Client denies travel out of the [place] in the last 14 days. At this time, the client does not indicate any symptoms associated with coronavirus-19. Ebola Screen: No symptoms or risks identified at this time. Initial Sepsis Screen: Does the patient meet any 2 criteria? No. Patient's initial sepsis screen is negative. Does the patient have a suspected source of infection? No. Patient's initial sepsis screen is negative. Risk Assessment: Do you want to hurt yourself or someone else? Patient reports no desire to harm self or others. Onset of symptoms was October 26, 2020. Transition of care:. 01:43 Method Of Arrival: EMS: [facility] jb4 01:43 Acuity: HUAN 2 jb4 CODING ADVISOR: 03:00 LMP N/A - Post-menopause lp1 Historical: - Allergies: 01:43 Ancef (rash); sg - PMHx: 01:43 Alcoholism; Anxiety; Hypertension; mitral valve prolapse; Ulcers; sg - PSHx: 01:43 Cholecystectomy; cardiac ablation; sg - Immunization history:: Adult Immunizations unknown. - Social history:: Smoking status: Patient reports the use of cigarette tobacco products, smokes one-half pack cigarettes per day, Patient/guardian denies using alcohol, street drugs. Screenin:17 Abuse screen: Denies threats or abuse. Denies injuries from another. Nutritional lp1 screening: No deficits noted. Tuberculosis screening: No symptoms or risk factors identified. 03:00 Fall Risk Total Feldman Fall Scale indicates High Risk Score (45 or more points). Fall lp1 prevention measures have been instituted. Side Rails Up X 2 Frequent Obs/Assessments Occuring As available patient and family educated on Fall Prevention Program and Strategies. Assessment: 02:00 General: Appears uncomfortable, Behavior is anxious. Pain: Complains of pain in lp1 epigastric area Pain radiates to chest Pain currently is 8 out of 10 on a pain scale. Quality of pain is described as sharp, Pain began gradually, Noted to be grimacing, moaning, restless. Neuro: Level of Consciousness is awake, alert, obeys commands, Oriented to person, place, time, situation. Cardiovascular: Patient's skin is warm and dry. Rhythm is sinus tachycardia. Respiratory: Airway is patent Respiratory effort is even, Breath sounds are clear bilaterally. GI: Abdomen is non-distended, Bowel sounds present X 4 quads. Abdomen is tender to palpation in epigastric area Reports nausea. : No signs and/or symptoms were reported regarding the genitourinary system. EENT: No signs and/or symptoms were reported regarding the EENT system. Derm: Skin is intact, Skin is dry, Skin is normal. Musculoskeletal: No deficits noted. 03:00 Reassessment: Patient reports minimal relief with medication administered; Provider lp1 notified. 03:00 General: Behavior is anxious, restless. lp1 03:35 Reassessment: Patient vomited x1, Provider notified, clear fluid noted. lp1 03:35 Reassessment: Verbal order for Zofran 4mg IV now from Dr. Camacho. lp1 04:08 Reassessment: Verbal order per Provider for Fentanyl 25mcg IV now for pain. lp1 04:11 Reassessment: David at bedside to discuss care and plan of care with patient; Verbal lp1 order for Ativan 1mg IV now for patient anxiousness, restless; Verbal order for blood cultures x2. 05:15 Reassessment: David Mac NP at bedside for IV placement and lab draw; Patient appears lp1 relaxed, restlessness improved. Vital Signs: 01:43 BP 174 / 109; Pulse 117; Resp 18; Temp 98.2(O); Pulse Ox 100% on R/A; Weight 70.31 kg jb4 (R); Height 5 ft. 7 in. (170.18 cm) (R); Pain 9/10; 02:16 BP 150 / 97; Pulse 116; Resp 20; Pulse Ox 100% on R/A; Pain 9/10; lp1 02:35 BP 141 / 80; Pulse 111; Resp 18; Pulse Ox 100% on R/A; lp1 03:30 BP 165 / 99; Pulse 119; Resp 20; Pulse Ox 100% on R/A; lp1 04:00 BP 160 / 97; Pulse 119; Resp 21; Temp 99.1(O); Pulse Ox 100% on R/A; lp1 05:51 BP 147 / 83; Pulse 114; Resp 20; Pulse Ox 100% on R/A; lp1 06:04 BP 136 / 81; Pulse 106; Resp 15; Pulse Ox 100% on R/A; lp1 01:43 Body Mass Index 24.28 (70.31 kg, 170.18 cm) jb4 ED Course: 01:41 Patient arrived in ED. sg 01:42 Gabriel Neil MD is Private Physician. sg 01:43 Ángel Camacho MD is Attending Physician. tw4 01:43 Arm band placed on right wrist. jb4 01:46 Triage completed. jb4 02:14 Krystina Cervantes, RN is Primary Nurse. lp1 02:14 Missed attempt(s): 20 gauge in right antecubital area. Accessed peripheral vein via lp1 ultrasound, utilizing dynamic ultrasound technique using 20G Nexia IV catheter Clean \T\ dry. Good blood return. Flushes easily. Left AC. Patient maintains SpO2 saturation greater than 95% on room air. 02:17 Patient has correct armband on for positive identification. Placed in gown. Bed in low lp1 position. Call light in reach. nurse monitoring on. Pulse ox on. NIBP on. 02:37 IV discontinued, intact, bleeding controlled, No redness/swelling at site. Pressure rr5 dressing applied, left AC removed. 02:40 XRAY Chest (1 view) In Process Unspecified. EDMS 02:41 Inserted saline lock: 20 gauge in right forearm, using aseptic technique. rr5 04:01 CT Chest For PE Angio In Process Unspecified. EDMS 04:01 CT Abd/Pelvis - IV Contrast Only In Process Unspecified. EDMS 04:08 Gabriel Neil MD is Private Physician. sg 04:08 None, None is Private Physician. sg 04:11 Tyrone Syed DO is Hospitalizing Provider. tw4 04:20 COVID swab sent to lab. lp1 05:15 Missed attempt(s): 20 gauge in left upper arm. upper arm x2 via US . Bleeding sg controlled, band aid applied, catheter tip intact. 05:36 Accessed peripheral vein via ultrasound, utilizing dynamic ultrasound technique Blood sg collected. using per hospital protocol. Clean \T\ dry. Dressing intact. Good blood return. Flushes easily. PowerGlide Midline Cath, 18 G 10 cm inserted by David DENNIS to the LUE. 05:45 [place] cath inserted, using sterile technique, 16 Fr., by nd, balloon inflated, to lp1 gravity drainage, other Verbal order per JEANNIE Pulido. 05:51 No provider procedures requiring assistance completed. Patient admitted, IV remains in lp1 place. Administered Medications: 02:20 Drug: NS 0.9% 1000 ml Route: IV; Rate: 1 bolus; Site: left antecubital; lp1 04:09 Follow up: IV Status: Completed infusion; IV Intake: 1000ml lp1 02:20 Drug: TORadol 30 mg Route: IVP; Site: left antecubital; lp1 03:35 Follow up: Response: No adverse reaction; No change in condition; Pain is unchanged, lp1 physician notified 03:35 Drug: NS 0.9% (30 ml/kg) 30 ml/kg Route: IV; Rate: bolus; Site: right forearm; lp1 06:01 Follow up: IV Status: Completed infusion; IV Intake: 1000ml lp1 03:35 Drug: Zofran (Ondansetron) 4 mg Route: IVP; Site: right antecubital; lp1 04:13 Follow up: Response: Nausea is decreased lp1 04:08 Drug: Sodium Bicarbonate 1 amp Route: IVP; Site: right antecubital; lp1 04:45 Follow up: Response: No adverse reaction lp1 04:09 Drug: fentaNYL (PF) 25 mcg Route: IVP; Site: right antecubital; lp1 04:45 Follow up: Response: Pain is decreased lp1 04:25 Drug: Ativan 1 mg Route: IVP; Site: right antecubital; lp1 05:15 Follow up: Response: Marked relief of symptoms lp1 05:49 Drug: Thiamine 100 mg Route: IV; Rate: calculated rate; Site: left upper arm; lp1 06:02 Follow up: IV Status: Completed infusion lp1 Intake: 04:09 IV: 1000ml; Total: 1000ml. lp1 06:01 IV: 1000ml; Total: 2000ml. lp1 Outcome: 04:13 Decision to Hospitalize by Provider. tw4 05:52 Admitted to ICU accompanied by nurse, via stretcher, room ED 10, on monitor, with lp1 chart, Report called to CARLY Irizarry 05:52 critical 05:52 Instructed on the need for admit. 06:05 Patient left the ED. lp1 Signatures: Dispatcher [employer] EDZachery Lujan, RN RN sg Krystina Cervantes RN RN lp1 Dougie Osorio RN RN jb4 Ángel Camacho MD MD tw4 Nirmal Merchant RN RN rr5 Corrections: (The following items were deleted from the chart) 02:19 02:14 Accessed peripheral vein via ultrasound, utilizing dynamic ultrasound technique lp1 using 20G Nexia IV catheter Clean \T\ dry. Good blood return. Flushes easily. lp1 06:00 05:52 Admitted to ICU accompanied by nurse, via stretcher, room ED 10, on monitor, with lp1 chart, lp1
[2020-10-26] MEDS ORDERED: FENTANYL CITR 100 MCG/2 ML ONE (04:14)
[2020-10-26 04:16] LABS: Urine Bacteria <20 /HPF (<20); Urine RBC NONE SEEN /HPF (NONE SEEN); Urine Urothelial Cells <5 /HPF (NONE SEEN)
[2020-10-26 04:26] LABS: Phosphorus 2.4 mg/dL (2.5-4.9)
[2020-10-26] MEDS ORDERED: LORazepam 2 MG/ML VIAL ONE ×5 (04:35→22:27)
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
[2020-10-26 05:24] LABS: BUN Blood Urea Nitrogen 5 mg/dL (7-18); Glucose Level 72 mg/dL (74-106); Potassium 4.3 mmol/L (3.5-5.1); Sodium Level 135 mmol/L (136-145)
[2020-10-26 05:26] LABS: Bicarbonate 12 mmol/L (21-32)
[2020-10-26] MEDS ORDERED: THIAMINE 200 MG/2 ML INJ ONE (05:57)
[2020-10-26 06:08] LABS: ALT/SGPT 32 U/L (12-78); AST/SGOT 43 U/L (15-37); Albumin 3.9 g/dL (3.4-5.0); Alkaline Phosphatase 72 U/L (45-117); BUN Blood Urea Nitrogen 5 mg/dL (7-18); Bilirubin Total 1.2 mg/dL (0.2-1.0); Glucose Level 73 mg/dL (74-106); Potassium 4.4 mmol/L (3.5-5.1); Protein, Total 8.6 g/dL (6.4-8.2); Sodium Level 134 mmol/L (136-145)
[2020-10-26 06:09] LABS: Bicarbonate 13 mmol/L (21-32)
[2020-10-26] MEDS ORDERED: FLUMAZENIL 0.1 MG/ML (5 mL VIAL) IV PRN (06:28)
[2020-10-26] MEDS ORDERED: LORazepam 2 MG/ML VIAL IV PRN (06:28)
[2020-10-26] MEDS: NA CHLORIDE 0.9% 1,000 ML IV SCH ×3 (06:45→19:26)
[2020-10-26] MEDS: LORazepam 2 MG/ML VIAL IV SCH ×5 (06:56→22:11)
[2020-10-26 07:01] VITALS: BMI 24.3
[2020-10-26] MEDS ORDERED: D50W 25 GM/50 ML SYRINGE IV ONE (07:42)
[2020-10-26] MEDS: ENOXAPARIN 40 MG/0.4 ML SQ SCH (08:22)
[2020-10-26] MEDS: METOPROLOL TAR 25 MG TAB PO SCH ×2 (08:22→17:03)
[2020-10-26] MEDS: FAMOTIDINE 20 MG/2 ML VIAL IV SCH (08:23)
[2020-10-26] MEDS ORDERED: ENOXAPARIN 40 MG/0.4 ML SQ ONE (08:34)
[2020-10-26] MEDS ORDERED: D50W 50 ML IV ONE (08:34)
[2020-10-26] MEDS ORDERED: METOPROLOL TAR 25 MG TAB ONE ×2 (08:34→17:18)
[2020-10-26] MEDS ORDERED: FAMOTIDINE 20 MG/2 ML VIAL IV ONE (08:35)
[2020-10-26] MEDS: NICOTINE 14 MG/PAT TD SCH (08:49)
[2020-10-26] MEDS ORDERED: FOLIC ACID 1 MG, MULTIVITAMINS INJ 10 ML, THIAMINE HCL 100 MG in NA CHLORIDE 0.9% 1,000 ML IV SCH ×8 (09:00)
[2020-10-26] MEDS ORDERED: FAMOTIDINE 20 MG TAB PO SCH (09:00)
--- NOTE | 2020-10-26 09:58 | RAD REPORT ---
EXAM DESCRIPTION: RAD - Chest Single View - 10/26/2020 2:02 am CLINICAL HISTORY: CHEST PAIN Chest pain. COMPARISON: Chest Single View dated 10/17/2020; Chest Single View dated 02/18/2020; Chest Single View dated 03/04/2019; Chest Single View dated 03/01/2019 FINDINGS: Portable technique limits examination quality. The lungs are grossly clear. The heart is normal in size. No displaced fractures. IMPRESSION: No acute intrathoracic process suspected.
--- NOTE | 2020-10-26 10:42 | P.PN ---
Subjective Date of Service: 10/26/20 Primary Care Provider: None, Previously Dr. Neil (Fired) Chief Complaint: Alcoholic ketoacidosis, alcohol withdrawal Subjective: Other (Patient reports improvement. No significant nausea or vomiting at this time.) Physical Examination - Vital Signs Temperature: 98.4 F Blood Pressure: 112/72 Pulse: 112 Respirations: 19 Pulse Ox (%): 98 - Studies Laboratory Data (last 24 hrs) 10/26/20 03:22: Lipase Cancelled 10/26/20 02:10: PT 11.6, INR 1.01 10/26/20 02:10: WBC 8.50 D, Hgb 11.1 L, Hct 38.7, Plt Count 205 10/26/20 02:10: Sodium 130 L, Potassium 4.2, BUN 6 L, Creatinine 0.62, Glucose 98, Phosphorus 2.4 L, Magnesium 1.9, Total Bilirubin 1.4 H, AST 58 H, ALT 36, Alkaline Phosphatase 83, Lipase 132 Assessment & Plan Discharge Plan: Home Plan to discharge in: Greater than 2 days Physician Review Additional Text: Physical exam: Patient alert, cooperative. Slight tremulous, reports no nausea or vomiting. Admits to alcohol use. Heart: Mild tachycardia Lungs: Clear to auscultation Abdomen: Soft nontender nondistended Extremities: Good range of motion upper lower extremities. No focal deficits. No edema noted. Pression: Nausea, vomiting and diarrhea secondary to metabolic acidosis secondary likely alcoholic ketoacidosis complicated with alcohol withdrawal and inappropriate diuretic use Hypophosphatemia Hypertension Tobacco abuse Plan Nausea, vomiting and diarrhea secondary to metabolic acidosis secondary likely alcoholic ketoacidosis complicated with alcohol withdrawal and inappropriate diuretic use: Patient without nausea vomiting at this time. Will monitor for diarrhea. Continue aggressive IV fluid hydration and electrolyte replacement. Will provide medication for alcohol withdrawal. Repeat and monitor serial lab. Nephrology consulted to help with this. Alcohol withdrawal protocol in place for delirium tremens prophylaxis with scheduled and p.r.n. Ativan. Will monitor lab closely. Patient remains in ICU for close monitoring. Anticipate improvement over the next 72 hours. I will turn the service over to the hospitalist team tomorrow. I will go over plan of care with him. Hypophosphatemia: Electrolyte protocols in place including phosphate. Hypertension: Obtain and continue home medications, adjust as necessary. Patient likely hypertensive due to alcohol withdrawals at this time. Will manage underlying cause. Tobacco abuse: Patient reports smoking approximately half a pack per day, provided patient with Nicoderm patch, discussed need for tobacco cessation. Time Spent Managing Pts Care (In Minutes): 55
[2020-10-26 12:27] LABS: BUN Blood Urea Nitrogen 5 mg/dL (7-18); Bicarbonate 17 mmol/L (21-32); Glucose Level 74 mg/dL (74-106); Potassium 3.6 mmol/L (3.5-5.1); Sodium Level 136 mmol/L (136-145); Troponin I < 0.02 ng/mL (0.0-0.045)
--- NOTE | 2020-10-26 12:28 | RAD REPORT ---
EXAM DESCRIPTION: CTA Chest, Pulmonary Embolus Protocol COMPARISON: CT chest March 05, 2019 CLINICAL HISTORY: [facility] MAIN CHEST PAIN TECHNIQUE: CT images through the chest with IV contrast using the pulmonary embolus protocol. Multip lanar reformats. Automated exposure control was utilized on this examination as a dose lowering barry hnique. FINDINGS: Pulmonary arteries and vascular: Diagnostic quality bolus. No filling defects. Ascending a ortic ectasia measures 4.1 cm. Heart and mediastinum: Heart size is normal. No lymphadenopathy. Thyroid gland: Visualized portions are normal. Lungs: Clear. Airways: No filling defects. No bronchiectasis. Pleura: No pneumothorax. No significant pleural effusion. Subphrenic structures: Within normal limits. Musculoskeletal and soft tissues: Within normal limits for age. IMPRESSION: 1. No evidence of pulmonary embolus or other acute chest process. 2. Stable ascending aortic ectasia. Recommend annual CT follow-up. Signed by: Doyle Farris MD 10/26/2020 4:22 AM CDT Due to temporary technical issues with the PACS/Fluency reporting system, reports are being signed by the in house radiologists without review as a courtesy to insure prompt reporting. The interpreting radiologist is fully responsible for the content of the report.
--- NOTE | 2020-10-26 12:58 | RAD REPORT ---
EXAM DESCRIPTION: CT Abdomen and Pelvis COMPARISON: CT abdomen and pelvis March 02, 2019 CLINICAL HISTORY: [facility] MAIN ABD PAIN TECHNIQUE: CT of the abdomen and pelvis was acquired with IV contrast material. Coronal and sagitt al reconstructions were obtained. Automated exposure control was utilized on this examination as a dose lowering technique. FINDINGS: Lung bases: Clear. Liver: Normal. Gallbladder and biliary: Cholecystectomy. Unremarkable biliary tree. Pancreas: Normal. Spleen: Normal. Adrenal glands: Normal adrenal glands. Kidneys: Normal kidneys Stomach and Small Bowel: Small hiatal hernia. Normal small bowel. Urinary bladder: Normal. Uterus and Adnexa: 2.1 cm right ovarian cyst. This is almost certainly benign. No follow-up imaging i s recommended. Otherwise unremarkable. Colon and Appendix: The colon is unremarkable. Appendectomy. Retroperitoneum and lymph nodes: Normal. Vascular: Mild atherosclerosis. Peritoneal cavity: No ascites or free air. Musculoskeletal and soft tissues: Soft tissues are unremarkable. Mild lumbar spondylosis. No aggressi ve bone lesions. No compression fracture. IMPRESSION: 1. No acute intra-abdominal abnormality. 2. Small hiatal hernia. Electronically signed by: Doyle Farris MD 10/26/2020 4:28 AM CDT Due to temporary technical issues with the PACS/Fluency reporting system, reports are being signed by the in house radiologists without review as a courtesy to insure prompt reporting. The interpreting radiologist is fully responsible for the content of the report.
--- NOTE | 2020-10-26 14:55 | P.CNS ---
Date of Consult: 10/26/20 Reason for Consult: Metabolic acidosis, electrolyte issues Requesting Physician: Tyrone Syed Primary Care Provider: None, Previously Dr. Neil (Fired) Chief Complaint: Alcoholic ketoacidosis, alcohol withdrawal History of Present Illness: 45F w/ PMHx of chronic ETOH abuse, last drink was yesterday, Htn, & hx of cholecystectomy, who p/w N/V/D/abdominal pain, found to have alcoholic ketoacidosis with metabolic acidosis & electrolyte derangements, admitted for further eval & mngt. She reports drinking rum yesterday. Initial serum bicarb was very low. ABG showed high AGMA. She received IV bicarb & electrolyte repletion. Allergies cefazolin sodium [From [facility] [place]] Allergy (Intermediate, Verified 10/18/20 02:45) Rash Home Medications: Aspirin [Aspirin EC 81 MG] 81 mg PO DAILY 10/26/20 Metoprolol Succinate [Toprol Xl] 50 mg PO DAILY 10/26/20 - Past Medical/Surgical History Diabetic: No -: HTN -: anxiety -: depression -: mitral valve prolapse -: Hypokalemia -: chronic alcohol abuse -: appendectomy -: cholecystectomy -: endometrial ablation Psychosocial/ Personal History: Patient lives with her mother, is unemployed - Family History Father Medical History: Heart disease, Hypertension Notes: had triple bypass Mother Medical History: Heart disease, Hypertension, Diabetes Notes: ENDOCARDITIS Sister Medical History: Hypertension, Kidney disease Notes: Also had a sister pass from GI disease - Social History Smoking Status: Current every day smoker Alcohol use: Yes CD- Drugs: No Caffeine use: Yes Place of Residence: Home Review of Systems General: Weakness Eyes: Unremarkable ENT: Unremarkable Respiratory: Unremarkable Cardiovascular: Unremarkable Gastrointestinal: Nausea, Vomiting, Abdominal Pain, Diarrhea Genitourinary: Unremarkable Musculoskeletal: Other (weakness) Integumentary: Unremarkable Neurological: Weakness Lymphatics: Unremarkable Physical Examination Temp Pulse Resp BP Pulse Ox 98.8 F 98 H 23 H 116/79 99 10/26/20 12:00 10/26/20 14:00 10/26/20 14:00 10/26/20 14:00 10/26/20 14:00 General: In no apparent distress HEENT: Atraumatic, Normocephalic Neck: Supple, Without JVD or thyroid abnormality Respiratory: Clear to auscultation bilaterally Cardiovascular: Normal S1 S2, No rubs, No murmurs Gastrointestinal: Soft and benign, Non-distended Musculoskeletal: No swelling Integumentary: Other (Normal temp) Neurological: Other (Non-focal) Lymphatics: No axilla or inguinal lymphadenopathy Urinary: Other (No bladder distention) External genitalia: No edema Rectal: Deferred Laboratory Data (last 24 hrs) 10/26/20 03:22: Lipase Cancelled 10/26/20 02:10: PT 11.6, INR 1.01 10/26/20 02:10: WBC 8.50 D, Hgb 11.1 L, Hct 38.7, Plt Count 205 10/26/20 02:10: Sodium 130 L, Potassium 4.2, BUN 6 L, Creatinine 0.62, Glucose 98, Phosphorus 2.4 L, Magnesium 1.9, Total Bilirubin 1.4 H, AST 58 H, ALT 36, Alkaline Phosphatase 83, Lipase 132 Conclusions/Impression: # High anion gap metabolic acidosis likely 2/2 ETOH use, r/o toxic substances/ETOH ingestion Serum anion gap was initially high, now normalized. Osmolar gap is wnl at neg 2. No e/o other toxic alcohol ingestion. Total body water 35L Bicarb deficit 245 meq Give 1 liter of isotonic IV bicarb Replete lytes together w/ IV bicarb as lytes will go low w/ acidosis correction d/t intracellular lytes shifting # Hypokalemia Replete via KCl Check serum Phos, replete if low # Hypocalcemia Replete via Ca Gluc # HypoMg Replete via MgSO4 # ETOH abuse CT A/P, LFT, lipase unremarkable Give IV thiamine prior to giving D5 containing IVF Receiving banana bag [facility] protocol # Proteinuria Urinalysis w/ no hematuria or pyuria but 3+ proteinuria F/u random UPCR
[2020-10-26] MEDS ORDERED: POTASSIUM CL 40 MEQ in NA CHLORIDE 0.9% 500 ML IV SCH (16:00)
[2020-10-26] MEDS ORDERED: CALCIUM GLUC 10% INJ 9.3 MEQ in NA CHLORIDE 0.9% 100 ML IV ONE (16:00)
[2020-10-26] MEDS ORDERED: Magnesium Sulfate 2gm IVPB 2 G/50 ML BAG IV ONE (16:00)
[2020-10-26] MEDS ORDERED: D5W 1,000 ML with NA BICARB 8.4% 150 MEQ IV SCH ×2 (16:00)
[2020-10-26] MEDS: HYDROCODONE/APAP 7.5/325 MG TAB PO PRN ×2 (17:38→23:08)
[2020-10-26 21:31] VITALS: O2SAT 99
[2020-10-26 21:36] LABS: Albumin 2.8 g/dL (3.4-5.0); BUN Blood Urea Nitrogen 4 mg/dL (7-18); Bicarbonate 25 mmol/L (21-32); Glucose Level 87 mg/dL (74-106); Magnesium 2.2 mg/dL (1.8-2.4); Potassium 3.5 mmol/L (3.5-5.1); Sodium Level 139 mmol/L (136-145)
[2020-10-26 21:45] LABS: Phosphorus 0.6 mg/dL (2.5-4.9)
[2020-10-26] MEDS ORDERED: POTASSIUM PHOS 20 MM in NA CHLORIDE 0.9% 500 ML IV ONE (22:18)
[2020-10-26] MEDS ORDERED: POTASSIUM PHOS IN 0.9 % NACL 15 MMOL/250 ML BAG IV ONE ×2 (22:52→23:25)
[2020-10-26] MEDS ORDERED: HYDROCODONE/APAP 7.5/325 MG TAB ONE (23:24)
[2020-10-26] MEDS ORDERED: EPOETIN ALFA-EPBX 10,000 UNIT/ML VIAL ONE (23:39)
[2020-10-26 23:57] LABS: Urine Protein/Creatinine Ratio 0.12 ratio (<0.15)
[2020-10-27] MEDS: LORazepam 2 MG/ML VIAL IV SCH ×4 (02:02→14:00)
[2020-10-27] MEDS ORDERED: LORazepam 2 MG/ML VIAL ONE ×3 (02:16→09:41)
[2020-10-27] MEDS: METOPROLOL TAR 25 MG TAB PO SCH ×2 (05:44→16:40)
[2020-10-27] MEDS ORDERED: METOPROLOL TAR 25 MG TAB ONE ×2 (05:53→16:56)
[2020-10-27 06:03] LABS: Absolute Lymphocytes (CBC) 1.2 K/uL (0.7-4.9); Basophils % 0.4 % (0-1.3); Hematocrit 27.2 % (36.0-45.0); Lymphocytes % 33.3 % (15.3-44.8); MPV 8.7 fL (7.6-11.3); RBC Red Blood Cell Count 3.91 M/uL (3.86-4.86)
[2020-10-27 06:12] LABS: ALT/SGPT 22 U/L (12-78); AST/SGOT 30 U/L (15-37); Albumin 2.7 g/dL (3.4-5.0); Alkaline Phosphatase 51 U/L (45-117); BUN Blood Urea Nitrogen 4 mg/dL (7-18); Bicarbonate 25 mmol/L (21-32); Bilirubin Total 0.5 mg/dL (0.2-1.0); Glucose Level 79 mg/dL (74-106); HDL Cholesterol 95 mg/dL (40-60); LDL Cholesterol, Calculated 107 (<130); Phosphorus 1.7 mg/dL (2.5-4.9); Potassium 3.6 mmol/L (3.5-5.1); Protein, Total 5.9 g/dL (6.4-8.2); Sodium Level 139 mmol/L (136-145)
[2020-10-27] MEDS: FAMOTIDINE 20 MG/2 ML VIAL IV SCH (07:32)
[2020-10-27] MEDS: NICOTINE 14 MG/PAT TD SCH (07:32)
[2020-10-27] MEDS: ENOXAPARIN 40 MG/0.4 ML SQ SCH (07:32)
[2020-10-27] MEDS ORDERED: ENOXAPARIN 40 MG/0.4 ML SQ ONE (07:48)
[2020-10-27] MEDS ORDERED: FAMOTIDINE 20 MG/2 ML VIAL IV ONE (07:49)
[2020-10-27 08:54] LABS: White Blood Cell Scan OK (OK)
[2020-10-27 08:55] LABS: Anisocytosis 1+; Blood Morphology Comment NOTED (NOT SEEN); Hypochromasia 2+; Platelet Estimate DECR; Platelets, Giant PRESENT
[2020-10-27 08:56] LABS: Poikilocytosis SLIGHT
[2020-10-27] MEDS: FOLIC ACID 1 MG, MULTIVITAMINS INJ 10 ML, THIAMINE HCL 200 MG in NA CHLORIDE 0.9% 1,000 ML IV SCH (08:57)
[2020-10-27] MEDS: POTASS/SODIUM PHOSPHATE 1 PKT POWD.PACK PO SCH ×2 (14:04→20:19)
[2020-10-27] MEDS ORDERED: POTASS/SODIUM PHOSPHATE 1 PKT POWD.PACK ONE ×2 (14:20→20:21)
[2020-10-27] MEDS: HYDROCODONE/APAP 7.5/325 MG TAB PO PRN (16:41)
[2020-10-27] MEDS ORDERED: HYDROCODONE/APAP 7.5/325 MG TAB ONE (16:55)
[2020-10-27] MEDS: chlordiazePOXIDE HCl 25 MG CAP PO SCH (18:00)
--- NOTE | 2020-10-28 00:31 | PN ---
Date of Progress Note: 10/27/2020 Chief Complaint: Prerenal azotemia, abdominal pain. History Of Present Illness: The patient was found to have alcoholic ketoacidosis and metabolic acido sis with electrolyte changes. She was admitted for further evaluation and management. She reports d rinking rum. Initial serum bicarbonate was very low. ABG showed high AGMA. The patient received IV bicarbonate and electrolyte replacement. Review of Systems: The patient denies fever or chills. She is complaining of generalized weakness. P.o. intake has not improved significantly. Physical Examination: Lungs: Diminished breath sounds at bases. Heart: S1, S2. Abdomen: Soft, benign. Extremities: No edema. Laboratory Data: Sodium 130, potassium 4.2, BUN 6, creatinine 0.62, glucose 98, phosphorus 2.4, lipa se 132. Today, blood work showed sodium 139, potassium 3.6, chloride 108, CO2 25, BUN 4, creatinine 0.27, phosphorus 1.7, magnesium 2.0, calcium 8.0. Bicarbonate improved from 9 to 13 to 17 and today is 25 and remained stable over last 24 hours. Impression And Plan: 1.Acidosis, resolving. 2.Hypophosphatemia is improving. Continue phosphorus and potassium replacement. Continue thiamine. 3.Monitor blood pressure and fluid balance. Alcohol withdrawal per primary team. 4.Hypertension. Advance beta-dwayne as needed for adequate blood pressure control. 5.Hypocalcemia. Replacement with calcium gluconate. 6.Hypomagnesemia. The patient received magnesium sulfate. 7.Alcohol abuse. Continue thiamine and IV fluids. The patient is receiving banana bag. 8.Proteinuria. Urinalysis did not show hematuria. Re-evaluate proteinuria when renal function is a t baseline. EB/MODL Voice ID: [id number] Report ID: [id number]
[2020-10-28] MEDS ORDERED: chlordiazePOXIDE HCl 25 MG CAP ONE ×2 (00:49→05:35)
[2020-10-28] MEDS: chlordiazePOXIDE HCl 25 MG CAP PO SCH ×5 (00:50→23:54)
[2020-10-28 05:16] LABS: Absolute Lymphocytes (CBC) 1.4 K/uL (0.7-4.9); Basophils % 0.9 % (0-1.3); Hematocrit 29.9 % (36.0-45.0); Lymphocytes % 40.7 % (15.3-44.8); RBC Red Blood Cell Count 4.28 M/uL (3.86-4.86)
[2020-10-28] MEDS: METOPROLOL TAR 25 MG TAB PO SCH ×2 (05:20→16:48)
[2020-10-28] MEDS ORDERED: METOPROLOL TAR 25 MG TAB ONE (05:36)
[2020-10-28] MEDS ORDERED: LORazepam 2 MG/ML VIAL IV SCH (06:00)
[2020-10-28 06:23] LABS: ALT/SGPT 21 U/L (12-78); AST/SGOT 25 U/L (15-37); Albumin 2.8 g/dL (3.4-5.0); Alkaline Phosphatase 52 U/L (45-117); BUN Blood Urea Nitrogen 5 mg/dL (7-18); Bicarbonate 31 mmol/L (21-32); Bilirubin Total 0.3 mg/dL (0.2-1.0); Glucose Level 90 mg/dL (74-106); Magnesium 1.7 mg/dL (1.8-2.4); Phosphorus 2.6 mg/dL (2.5-4.9); Potassium 3.2 mmol/L (3.5-5.1); Protein, Total 6.3 g/dL (6.4-8.2); Sodium Level 138 mmol/L (136-145)
[2020-10-28] MEDS: ENOXAPARIN 40 MG/0.4 ML SQ SCH (08:49)
[2020-10-28] MEDS: FOLIC ACID 1 MG, MULTIVITAMINS INJ 10 ML, THIAMINE HCL 200 MG in NA CHLORIDE 0.9% 1,000 ML IV SCH (08:49)
[2020-10-28] MEDS: FAMOTIDINE 20 MG/2 ML VIAL IV SCH (08:50)
[2020-10-28] MEDS: NICOTINE 14 MG/PAT TD SCH (08:50)
[2020-10-28] MEDS: POTASS/SODIUM PHOSPHATE 1 PKT POWD.PACK PO SCH (08:50)
[2020-10-28] MEDS: HYDROCODONE/APAP 7.5/325 MG TAB PO PRN ×2 (08:51→16:48)
[2020-10-28] MEDS ORDERED: POTASSIUM CL SA 10 MEQ TAB PO ONE ×2 (09:00→12:08)
[2020-10-28] MEDS ORDERED: MAGNESIUM SULFATE 1 gm IVPB 1 GM/100 ML BAG IV ONE (09:00)
--- NOTE | 2020-10-28 11:24 | P.PN ---
Subjective Date of Service: 10/29/20 Primary Care Provider: None, Previously Dr. Neil (Fired) Chief Complaint: Alcoholic ketoacidosis, alcohol withdrawal Subjective: No new changes Physical Examination - Vital Signs Temperature: 97.2 F Blood Pressure: 162/85 Pulse: 93 Respirations: 14 Pulse Ox (%): 99 - Physical Exam General: In no apparent distress HEENT: Atraumatic, Normocephalic Neck: Supple Respiratory: Normal air movement Cardiovascular: Normal S1 S2 Gastrointestinal: Soft and benign, Non-distended Musculoskeletal: No swelling Neurological: Normal tone Assessment And Plan - Plan # High anion gap metabolic acidosis likely 2/2 ETOH use, r/o toxic substances/ETOH ingestion Resolved Serum anion gap was initially high, now normalized. Osmolar gap is wnl at neg 2. No e/o other toxic alcohol ingestion. Total body water 35L Received IV bicarb Monitor # Hypokalemia Monitor/replete prn Check serum Phos, replete if low # Hypocalcemia Monitor/replete prn # HypoMg Monitor/replete prn # ETOH abuse CT A/P, LFT, lipase unremarkable CIWA protocol Mngt per primary team # Proteinuria Urinalysis w/ no hematuria or pyuria but 3+ proteinuria Random UPCR w/ no overt proteinuria at 0.1g Physician Review Additional Text: Physical exam: Patient alert, cooperative. Slight tremulous, reports no nausea or vomiting. Admits to alcohol use. Heart: Mild tachycardia Lungs: Clear to auscultation Abdomen: Soft nontender nondistended Extremities: Good range of motion upper lower extremities. No focal deficits. No edema noted. Pression: Nausea, vomiting and diarrhea secondary to metabolic acidosis secondary likely alcoholic ketoacidosis complicated with alcohol withdrawal and inappropriate diuretic use Hypophosphatemia Hypertension Tobacco abuse Plan Nausea, vomiting and diarrhea secondary to metabolic acidosis secondary likely alcoholic ketoacidosis complicated with alcohol withdrawal and inappropriate diuretic use: Patient without nausea vomiting at this time. Will monitor for diarrhea. Continue aggressive IV fluid hydration and electrolyte replacement. Will provide medication for alcohol withdrawal. Repeat and monitor serial lab. Nephrology consulted to help with this. Alcohol withdrawal protocol in place for delirium tremens prophylaxis with scheduled and p.r.n. Ativan. Will monitor lab closely. Patient remains in ICU for close monitoring. Anticipate improvement over the next 72 hours. I will turn the service over to the hospitalist team tomorrow. I will go over plan of care with him. Hypophosphatemia: Electrolyte protocols in place including phosphate. Hypertension: Obtain and continue home medications, adjust as necessary. Patient likely hypertensive due to alcohol withdrawals at this time. Will manage underlying cause. Tobacco abuse: Patient reports smoking approximately half a pack per day, provided patient with Nicoderm patch, discussed need for tobacco cessation.
[2020-10-28] MEDS: TRAMADOL HCL 50 MG TAB PO PRN ×2 (14:12→21:19)
[2020-10-28] MEDS: ONDANSETRON 4 MG/2 ML VIAL IV PRN (14:12)
[2020-10-28] MEDS: MAGNESIUM CHLORIDE 64 MG TAB PO SCH ×2 (15:16→21:00)
[2020-10-29] MEDS: HYDROCODONE/APAP 7.5/325 MG TAB PO PRN (03:40)
[2020-10-29] MEDS: chlordiazePOXIDE HCl 25 MG CAP PO SCH ×2 (05:04→11:48)
[2020-10-29] MEDS: METOPROLOL TAR 25 MG TAB PO SCH (05:05)
[2020-10-29 05:43] LABS: Absolute Lymphocytes (CBC) 1.6 K/uL (0.7-4.9); Basophils % 0.8 % (0-1.3); Hematocrit 27.8 % (36.0-45.0); Lymphocytes % 42.9 % (15.3-44.8); MPV 8.8 fL (7.6-11.3); RBC Red Blood Cell Count 3.97 M/uL (3.86-4.86)
[2020-10-29 05:53] LABS: ALT/SGPT 20 U/L (12-78); AST/SGOT 18 U/L (15-37); Albumin 2.8 g/dL (3.4-5.0); Alkaline Phosphatase 47 U/L (45-117); BUN Blood Urea Nitrogen 6 mg/dL (7-18); Bicarbonate 29 mmol/L (21-32); Bilirubin Total 0.2 mg/dL (0.2-1.0); Glucose Level 110 mg/dL (74-106); Magnesium 1.9 mg/dL (1.8-2.4); Phosphorus 3.3 mg/dL (2.5-4.9); Potassium 3.7 mmol/L (3.5-5.1); Protein, Total 6.2 g/dL (6.4-8.2); Sodium Level 140 mmol/L (136-145)
--- NOTE | 2020-10-29 08:00 | P.PN ---
Subjective Date of Service: 10/30/20 Primary Care Provider: None, Previously Dr. Neil (Fired) Chief Complaint: Alcoholic ketoacidosis, alcohol withdrawal Subjective: No new changes Physical Examination - Vital Signs Temperature: 97.7 F Blood Pressure: 137/86 Pulse: 8 Respirations: 18 Pulse Ox (%): 100 - Physical Exam General: In no apparent distress HEENT: Atraumatic, Normocephalic Neck: Supple Respiratory: Clear to auscultation bilaterally Cardiovascular: Regular rate/rhythm, No gallops, No rubs, No murmurs Gastrointestinal: Soft and benign, Non-distended Musculoskeletal: No swelling Neurological: Other (Nonfocal) Assessment And Plan - Plan # High anion gap metabolic acidosis likely 2/2 ETOH use, r/o toxic substances/ETOH ingestion Resolved Serum anion gap was initially high, now normalized. Osmolar gap is wnl at neg 2. No e/o other toxic alcohol ingestion. Total body water 35L Received IV bicarb Monitor # Hypokalemia Resolved Monitor/replete prn Check serum Phos, replete if low # Hypocalcemia Resolved Monitor/replete prn # HypoMg Resolved Monitor/replete prn # ETOH abuse CT A/P, LFT, lipase unremarkable [facility]WA protocol Mngt per primary team # Proteinuria Urinalysis w/ no hematuria or pyuria but 3+ proteinuria Random UPCR w/ no overt proteinuria at 0.1g # Dispo Ok to dc today from renal standpoint Physician Review Additional Text: Physical exam: Patient alert, cooperative. Slight tremulous, reports no nausea or vomiting. Admits to alcohol use. Heart: Mild tachycardia Lungs: Clear to auscultation Abdomen: Soft nontender nondistended Extremities: Good range of motion upper lower extremities. No focal deficits. No edema noted. Pression: Nausea, vomiting and diarrhea secondary to metabolic acidosis secondary likely alcoholic ketoacidosis complicated with alcohol withdrawal and inappropriate diuretic use Hypophosphatemia Hypertension Tobacco abuse Plan Nausea, vomiting and diarrhea secondary to metabolic acidosis secondary likely alcoholic ketoacidosis complicated with alcohol withdrawal and inappropriate diuretic use: Patient without nausea vomiting at this time. Will monitor for diarrhea. Continue aggressive IV fluid hydration and electrolyte replacement. Will provide medication for alcohol withdrawal. Repeat and monitor serial lab. Nephrology consulted to help with this. Alcohol withdrawal protocol in place for delirium tremens prophylaxis with scheduled and p.r.n. Ativan. Will monitor lab closely. Patient remains in ICU for close monitoring. Anticipate improvement over the next 72 hours. I will turn the service over to the hospitalist team tomorrow. I will go over plan of care with him. Hypophosphatemia: Electrolyte protocols in place including phosphate. Hypertension: Obtain and continue home medications, adjust as necessary. Patient likely hypertensive due to alcohol withdrawals at this time. Will manage underlying cause. Tobacco abuse: Patient reports smoking approximately half a pack per day, provided patient with Nicoderm patch, discussed need for tobacco cessation.
[2020-10-29] MEDS: FAMOTIDINE 20 MG/2 ML VIAL IV SCH (08:48)
[2020-10-29] MEDS: ENOXAPARIN 40 MG/0.4 ML SQ SCH (08:48)
[2020-10-29] MEDS: NICOTINE 14 MG/PAT TD SCH (08:49)
[2020-10-29] MEDS: FOLIC ACID 1 MG, MULTIVITAMINS INJ 10 ML, THIAMINE HCL 200 MG in NA CHLORIDE 0.9% 1,000 ML IV SCH (08:49)
[2020-10-29] MEDS: POTASS/SODIUM PHOSPHATE 1 PKT POWD.PACK PO SCH (08:49)
[2020-10-29] MEDS ORDERED: POTASSIUM CL SA 10 MEQ TAB PO ONE (09:00)
[2020-10-29] MEDS: MAGNESIUM CHLORIDE 64 MG TAB PO SCH (09:00)
--- NOTE | 2020-10-29 09:17 | P.PN ---
Subjective Date of Service: 10/27/20 Subjective: No new changes, No C/O voiced, Improving Review of Systems 10-point ROS is otherwise unremarkable Physical Examination - Vital Signs Temperature: 97.7 F Blood Pressure: 137/86 Pulse: 8 Respirations: 18 Pulse Ox (%): 100 - Physical Exam General: Alert, In no apparent distress, Confused Respiratory: Clear to auscultation bilaterally, Normal air movement Cardiovascular: Regular rate/rhythm, Normal S1 S2, No murmurs Gastrointestinal: Normal bowel sounds, Soft and benign, Non-distended, No tenderness Musculoskeletal: No tenderness Neurological: Other (Patient is confused and lethargic), Abnormal gait, Abnormal strength, Abnormal sensation - Studies Medications List Reviewed: Yes Assessment & Plan - Problems (Diagnosis) (1) Generalized weakness Current Visit: Yes Status: Acute (2) Alcohol withdrawal Onset Date: 04/14/15 Current Visit: No Status: Acute (3) Dehydration Onset Date: 04/11/15 Current Visit: No Status: Acute (4) Delirium tremens Current Visit: No Status: Acute (5) Electrolyte imbalance Onset Date: 04/17/18 Current Visit: No Status: Chronic (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 Continue with IV fluids 2. Continue with out of bed and ambulate 3. Monitor nutritional status 4. Physical therapy evaluation 5. Librium 6. Dc Ativan 7. B12 and folic acid supplementation as needed 8. GI and DVT prophylaxis Discharge Plan: Home Plan to discharge in: Greater than 2 days - Advance Directives Does patient have a Living Will: No Does patient have a Durable POA for Healthcare: No - Code Status/Comfort Care Code Status Assessed: Yes Code Status: Full Code Critical Care: No Time Spent Managing PTS Care (In Minutes): 45
--- NOTE | 2020-10-29 09:18 | P.DS ---
Discharge Date: 10/29/20 Primary Care Provider: None, Previously Dr. 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 Patient was confused and came into the ER for further evaluation. In the emergency room patient was found have significant acidosis. Patient anion gap metabolic acidosis which was corrected with IV hydration. Patient also monitor for DTs and given IV Ativan. Patient was admitted to ICU for close monitoring for delirium tremens. Hospital Course: Patient done well during hospital stay. Clifton keller currently doing much better and ambulating with some minimal gait ataxia. Working with physical therapy and try to get home health if we are able to do so. Otherwise patient will need continued outpatient strengthening on her own. Will give her vitamin supplementation. Also encouraged her to quit drinking. Senior Compliance Analyst Librium tapering dose. She is no longer having any Chi withdrawals. At this time she is stable for discharge home. Vital Signs/Physical Exam: Temp Pulse Resp BP Pulse Ox 97.7 F 8 L 18 137/86 100 10/29/20 09:18 10/29/20 09:18 10/29/20 09:18 10/29/20 09:18 10/29/20 09:18 General: Alert, In no apparent distress, Oriented x3 Laboratory Data at Discharge: WBC 3.80 K/uL (4.3-10.9) L 10/29/20 05:00 Hgb 8.7 g/dL (12.0-15.0) L 10/29/20 05:00 Hct 27.8 % (36.0-45.0) L 10/29/20 05:00 Plt Count 123 K/uL (152-406) L 10/29/20 05:00 PT 11.6 SECONDS (9.5-12.5) 10/26/20 02:10 INR 1.01 10/26/20 02:10 Sodium 140 mmol/L (136-145) 10/29/20 05:00 Potassium 3.7 mmol/L (3.5-5.1) 10/29/20 05:00 BUN 6 mg/dL (7-18) L 10/29/20 05:00 Creatinine 0.37 mg/dL (0.55-1.3) L 10/29/20 05:00 Glucose 110 mg/dL (74-106) H 10/29/20 05:00 Phosphorus 3.3 mg/dL (2.5-4.9) 10/29/20 05:00 Magnesium 1.9 mg/dL (1.8-2.4) 10/29/20 05:00 Total Bilirubin 0.2 mg/dL (0.2-1.0) 10/29/20 05:00 AST 18 U/L (15-37) 10/29/20 05:00 ALT 20 U/L (12-78) 10/29/20 05:00 Alkaline Phosphatase 47 U/L (45-117) 10/29/20 05:00 Troponin I < 0.02 ng/mL (0.0-0.045) 10/26/20 11:58 Triglycerides 60 mg/dL (<150) 10/27/20 04:50 Cholesterol 214 mg/dL (<200) H 10/27/20 04:50 HDL Cholesterol 95 mg/dL (40-60) H 10/27/20 04:50 Cholesterol/HDL Ratio 2.25 10/27/20 04:50 Lipase Cancelled 10/26/20 03:22 Home Medications: Aspirin [Aspirin EC 81 MG] 81 mg PO DAILY 10/26/20 Metoprolol Succinate [Toprol Xl*] 50 mg PO DAILY 10/26/20 Chlordiazepoxide HCl [Librium] 10 mg PO Q8H #40 capsule 10/28/20 Hydrocodone 7.5/APAP 325 [[place] 7.5/325 mg*] 1 tab PO Q6HP PRN #30 tab 10/28/20 Metoprolol Tartrate [Lopressor*] 25 mg PO BID 6AM 6PM #60 tab 10/28/20 Cyanocobalamin/Cobamamide [Vitamin B-12 5,000 Mcg Tab Sl] 1 each SL DAILY #30 tab.subl 10/29/20 Folic Acid 1 mg PO DAILY #30 tablet 10/29/20 New Medications: Folic Acid 1 mg PO DAILY #30 tablet Chlordiazepoxide HCl [Librium] 10 mg PO Q8H #40 capsule Metoprolol Tartrate [Lopressor*] 25 mg PO BID 6AM 6PM #60 tab Hydrocodone 7.5/APAP 325 [[place] 7.5/325 mg*] 1 tab PO Q6HP PRN #30 tab PRN Reason: Pain Scale 5-7 (Moderate) Cyanocobalamin/Cobamamide [Vitamin B-12 5,000 Mcg Tab Sl] 1 each SL DAILY #30 tab.subl Physician Discharge Instructions: OK TO DC IV AND DC HOME FOLLOW-UP WITH PCP IN 1-2 WEEKS RETURN TO THE ER IF SYMPTOMS WORSEN CALL ME AT [phone] IF ANY QUESTIONS REGARDING HOSPITAL STAY Diet: AHA Activity: Fall precautions Followup: NONE,NONE [Primary Care Provider] - Time spent managing pt's care (in minutes): 35
--- NOTE | 2020-10-29 09:18 | P.PN ---
Subjective Date of Service: 10/28/20 Subjective: No new changes, Tolerating diet, Improving Review of Systems 10-point ROS is otherwise unremarkable Physical Examination - Vital Signs Temperature: 97.7 F Blood Pressure: 137/86 Pulse: 88 Respirations: 18 Pulse Ox (%): 100 - Physical Exam General: Alert, In no apparent distress, Oriented x3 Respiratory: Clear to auscultation bilaterally, Normal air movement Cardiovascular: Regular rate/rhythm, Normal S1 S2, No murmurs Gastrointestinal: Normal bowel sounds, Soft and benign, Non-distended, No tenderness Musculoskeletal: No clubbing, No swelling, No tenderness Integumentary: No rashes Neurological: Sensation intact, Cranial nerves 3-12 intact - Studies Medications List Reviewed: Yes Assessment & Plan - Problems (Diagnosis) (1) Generalized weakness Current Visit: Yes Status: Acute (2) Alcohol withdrawal Onset Date: 04/14/15 Current Visit: No Status: Acute (3) Dehydration Onset Date: 04/11/15 Current Visit: No Status: Acute (4) Delirium tremens Current Visit: No Status: Acute (5) Electrolyte imbalance Onset Date: 04/17/18 Current Visit: No Status: Chronic (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 Continue with IV fluids 2. Continue with out of bed and ambulate 3. Monitor nutritional status 4. Physical therapy evaluation 5. Librium 6. Dc Ativan 7. B12 and folic acid supplementation as needed 8. GI and DVT prophylaxis Discharge Plan: Home Plan to discharge in: 48 Hours - Advance Directives Does patient have a Living Will: No Does patient have a Durable POA for Healthcare: No - Code Status/Comfort Care Code Status: Full Code Critical Care: No Time Spent Managing PTS Care (In Minutes): 35
[2020-10-29] MEDS: ONDANSETRON 4 MG/2 ML VIAL IV PRN (09:58)
[2020-10-29 14:40] LABS: Urine Blood 1+ (Negative); Urine Glucose Negative (Negative); Urine Protein 3+ (Negative); Urine Specific Gravity >=1.030 (1.005-1.030); Urine pH 5.5 (5.0-7.0)
[2020-10-30 07:29] VITALS: BP 137/86; TEMP 97.7
== END 2020-10-29 15:30 | disposition home or self-care (01) | DRG 897 ==
LOC: ER 01:40 → ERHOLD 04:11 → 4TH 10-28 06:00
PROVIDERS: ADMIT Family Medicine; ATTEND Hospitalist
DX: F10.131 Alcohol abuse with withdrawal delirium (principal); E87.2 Acidosis; F41.9 Anxiety disorder, unspecified; E83.39 Other disorders of phosphorus metabolism; E87.6 Hypokalemia; E86.0 Dehydration; E87.8 Other disorders of electrolyte and fluid balance, not elsewhere classified; E83.51 Hypocalcemia; E83.42 Hypomagnesemia; I10 Essential (primary) hypertension; F17.210 Nicotine dependence, cigarettes, uncomplicated; R80.9 Proteinuria, unspecified; Z88.1 Allergy status to other antibiotic agents; Z79.82 Long term (current) use of aspirin; Z90.49 Acquired absence of other specified parts of digestive tract; Z56.0 Unemployment, unspecified; Z79.899 Other long term (current) drug therapy; Z20.822 Contact with and (suspected) exposure to COVID-19
CPT/HCPCS: 36415; 51702; 71045; 71275; 74177; 80048; 80053; 80061; 80069; 80076; 80307; 80320; 81003; 81015; 81025; 82010; 82330; 82570; 82805; 83605; 83690; 83735; 83880; 83930; 84100; 84132; 84145; 84156; 84484; 85025; 85610; 87040; 93005; 97116; 97161; 99285; J0610; J1650; J2405; J3010; J3411; J3475; J3480; J7030; J7040; Q5106; Q9967; U0003

== ENCOUNTER 2022-05-28 06:08 | Emergency (ER) | payer BC, SELFPAY ==
--- OUTSIDE RECORDS SUMMARY | 2022-05-28 06:14 | XMS REPORT | Continuity of Care Document ---
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 correct? YES HEMATOCRIT (test code 25.9 % 33.0-45.0 L = HCT) MEAN CELL VOLUME 66.4 fL 81.0-99.0 L (test code = MCV) MEAN CELL HGB (test 16.4 pg 27.0-33.0 L code = MCH) MEAN CELL HGB 24.7 g/dL 33.0-37.0 L CONCETRATION (test code = MCHC) RED CELL DISTRIBUTION 19.8 % 11.5-14.5 H WIDTH CV (test code = RDW) RED CELL DISTRIBUTION 45.8 fL 37.0-54.0 N WIDTH SD (test code = RDW-SD) PLATELET COUNT (test 254 x10 3/uL 150-400 N code = PLT) IMMATURE PLATELET 4.6 % 0.9-11.2 N FRACTION (test code = IPF) MEAN PLATELET VOLUME 9.8 fL 7.0-9.0 H (test code = MPV) NEUTROPHIL % (test 46.6 % 56.0-77.0 L code = NT%) IMMATURE GRANULOCYTE 0.3 % 0.0-2.0 N % (test code = IG%) LYMPHOCYTE % (test 38.5 % 14.0-32.0 H code = LY%) MONOCYTE % (test code 9.1 % 4.8-9.0 H = MO%) EOSINOPHIL % (test 4.4 % 0.3-3.7 H code = EO%) BASOPHIL % (test code 1.1 % 0.0-2.0 N = BA%) NUCLEATED RBC % (test 0.0 % 0-0 N code = NRBC%) NEUTROPHIL # (test 2.95 x10 3/uL 2.0-7.6 N code = NT#) IMMATURE GRANULOCYTE 0.02 x10 3/uL 0.00-0.03 N # (test code = IG#) LYMPHOCYTE # (test 2.44 x10 3/uL 1.0-3.8 N code = LY#) MONOCYTE # (test code 0.58 x10 3/uL 0.1-0.8 N = MO#) EOSINOPHIL # (test 0.28 x10 3/uL 0.0-0.2 H code = EO#) BASOPHIL # (test code 0.07 x10 3/uL 0.0-0.2 N = BA#) NUCLEATED RBC # (test 0.00 x10 3/uL 0.0-0.1 N code = NRBC#) MANUAL DIFF REQUIRED NO (test code = MDIFF) COMPREHENSIVE METABOLIC [id number] 19:46:00 Test Item Value Reference Range Interpretation Comments SODIUM (test code = NA) 144 mEq/L 134-147 N POTASSIUM (test code = 3.6 mEq/L 3.4-5.0 N K) CHLORIDE (test code = 110 mEq/L 100-108 H CL) CARBON DIOXIDE (test 26 mEq/l 21-33 N code = CO2) ANION GAP (test code = 12 0-20 N GAP) GLUCOSE (test code = 92 mg/dL 70-110 N GLU) BLOOD UREA NITROGEN 10 mg/dL 7-18 N (test code = BUN) GLOMERULAR FILTRATION 107.2 95-105 H Units of measure = RATE (test code = GFR) ml/mi n/1.73 m2 CREATININE (test code = 0.6 mg/dL 0.6-1.3 N CREAT) TOTAL PROTEIN (test 7.2 g/dL 6.4-8.2 N code = PROT) ALBUMIN (test code = 3.60 g/dL 3.4-5.0 N ALB) CALCIUM (test code = 9.0 mg/dL 8.0-10.5 N CA) BILIRUBIN TOTAL (test 0.30 mg/dL 0.0-1.0 N code = BILT) SGOT/AST (test code = 26 IUnit/L 15-37 N AST) SGPT/ALT (test code = 18 IUnit/L 30-65 L ALT) ALKALINE PHOSPHATASE 92 IUnit/L 20-125 N TOTAL (test code = ALKP) TROP-I HIGH [id number] 19:46:00 Test Item Value Reference Range Interpretation Comments TROP-I HIGH < 3 ng/L 0-34 N CAUTION: Units of the SENSITIVITY (test current te st methodology code = TROPIHS) (ng/L) diffe rfrom the prior test meth odology (ng/mL) by a fa ctor of 1000. 99t h Percentile Uppe r Reference Limit (URL): Fe males: 34 ng/LMales: 54 n g/L In order to distin guish acute elevations of h igh sensitivitytrop onin from other clinical conditions, the FourthUnive rsal Definition of M yocardial Infarction stressesclinica l assessment and the demonstration o f a rise and/orfall in s erial troponin result s above the URL. These resu lts were obtained using Siemens Atellica IM TnI Hreagent. Results from di fferent methodologies s hould not becompared to o ne another as quantitative results and URLs mayvar y by method. HCG SERUM [id number] 19:39:00 Test Item Value Reference Range Interpretation Comments HCG SERUM QUAL (test code = SERUM NEGATIVE NEGATIVE HCGQL) UA RFLX MICR CULT IF [id number] 19:35:00 Test Item Value Reference Range Interpretation Comments UA COLOR (test code = COLU) YELLOW YEL/STRAW UA APPEARANCE (test code = CLEAR CLEAR APPU) UA GLUCOSE DIPSTICK (test code NEGATIVE NEGATIVE = DGLUU) UA BILIRUBIN DIPSTICK (test NEGATIVE NEGATIVE code = BILU) UA KETONE DIPSTICK (test code NEGATIVE NEGATIVE = KETU) UA SPECIFIC GRAVITY (test code 1.014 1.005-1.030 N = SGU) UA BLOOD DIPSTICK (test code = 1+ NEGATIVE A BEN) UA PH DIPSTICK (test code = 5.0 5.0-7.0 N MAT) UA PROTEIN DIPSTICK (test code NEGATIVE NEGATIVE = PROU) UA UROBILINIOGEN DIPSTICK 0.2 mg/dL 0.2-1.0 (test code = URO) UA NITRITE DIPSTICK (test code NEGATIVE NEGATIVE = PO) UA LEUKOCYTE ESTERASE DIPSTICK 2+ NEGATIVE A (test code = LEUU) UA WBC (test code = WBCU) 10-20 WBC/HPF 0-3 A UA RBC (test code = RBCU) 0-3 RBC/HPF 0-3 UA WBC NO REFLEX (test code = 10-20 WBC/HPF 0-3 A WBCUCL) UA BACTERIA (test code = BACU) NONE SEEN /HPF NONE SEEN UA SQUAMOUS CELLS (test code = 0-5 /HPF NONE SEEN SQU) UA MUCUS (test code = MUCU) TRACE /LPF NONE SEEN Indication for culture: Flank PainSpecimen Description: MID STREAM- CT CHEST [id number] 00:00:00 [facility] 1975 Sex: F Name: TARUN WATSON [facility] : 1975 Age/S: 46 / F [address] [place] [address] Unit #: [id number] Loc: TEJAS García [address] Phys: Sampson Johnson Acct: [id number] Dis Date: Status: REG ER PHONE #: [phone] Exam Date: 07/20/20212058 FAX #: [phone] Reason: fall, LUQ abdominal pain EXAMS: CPT CODE: [id number] CT CHEST W/CONTRAST 39664 PROCEDURE INFORMATION: Exam: CT Chest With Contrast; Diagnostic Exam date and time: 07/20/2021 9:05 PM Age: 46 years old Clinical indication: Abdominalpain; Localized; Left upper quadrant (luq); Intercostal; Additional info: Fall, luq abdominal pain TECHNIQUE: Imaging protocol: Diagnostic computed tomography of the chest with contrast. Radiation optimization: All CT scans at this facility use at least one of these dose optimization techniques: automated exposure control; mA and/or kV adjustment per patient size (includes targeted exams where dose is matched to clinical indication); or iterative reconstruction. Contrast material: [id number]; Contrast v olume: 100 ml; Contrast route: INTRAVENOUS (IV); COMPARISON: No relevant prior studies available. FINDINGS: Lungs: No consolidation. No masses. Pleural spaces: Unremarkable. No pneumothorax. No pleural effusion. Heart: No cardiomegaly. No pericardial effusion. Mild coronary artery atherosclerosis. Aorta: Mild aneurysmal dilatation of the ascending thoracic aorta which measures 4.2 cm in diameter. Aortic arch and descending thoracic aorta normal in caliber. Lymph nodes: No enlarged lymph nodes. Bones/joints: Thoracic spine normally aligned without compression deformity or spondylolisthesis. No detected spinous process fracture. No detected displaced rib fracture. Sternum intact. Visualized bilateral clavicles and bones of the bilateral shoulders demonstrate no detected acute injury. Soft tissues:Within normal limits. No detected fluid collection. PROCEDURE INFORMATION:Exam: CT Abdomen And Pelvis With Contrast Exam date and time: 07/20/2021 9:05 PM Age: 46 years old Clinical indication: Abdominal pain; Localized; Left upper quadrant (luq); Intercostal; Additional info: Fall, luq abdominal pain TECHNIQUE: Imaging protocol: Computed tomography of the abdomen and pelvis with contrast. Radiation optimization: All CT scans at this facility use at least one of these doseoptimization techniques: automated exposure PAGE 1 Signed Report (CONTINUED) Name: TARUN WATSON [facility] : 1975 Age/S: 46 / F [address] [place] [address] Unit #: [id number] Loc: TEJAS García [address] Phys: Sampson Johnson Acct: [id number] Dis Date: Status: REG ER PHONE #: [phone] Exam Date: 07/20/20212058 FAX #: [phone] Reason: fall, LUQ abdominal pain EXAMS: CPT CODE: [id number] CT CHEST W/CONTRAST 96335 <Continued> control; mA and/or kV adjustment per patient size (includes targeted exams where dose is matched to clinical indication); or iterative reconstruction. Contrast material: [id number]; Contrast volume: 100 ml; Contrast route: INTRAVENOUS (IV); COMPARISON: No relevant prior studies available. FINDINGS: Liver: Size and contours appear normal. Gallbladder and bile ducts: Gallbladder surgically absent. No abnormal findings seen in the postcholecystectomy bed. Pancreas: No surrounding inflammation. Spleen: No abnormality detected. Adrenal glands: No detected lesions. Kidneys and ureters: Kidneys normal in size and contour. No renal stones. Visualized portions of bilateral collecting systems demonstrate no hydronephrosis. No detected ureteral stones. Stomach and bowel: No obstructive or inflammatory pattern detected. Tffd-qv-eyfsqjhs amount of stool retained within the colon. Appendix: Surgically absent; no inflammation detected in the right lower quadrant or adjacent to the cecum. Intraperitoneal space: No detected organized fluid collection. No free air.Vasculature: No detected aneurysmal dilatation of the aorta. Lymph nodes: No pathologically enlargedlymph nodes detected. Urinary bladder: Distends normally without wall thickening. Reproductive: Uterus size and contour within normal limits. Bilateral ovaries not detected. Bones/joints: Lumbar spine normally aligned without compression deformity or spondylolisthesis. No detected transverse process or spinous process fracture. Sacrum appears intact. Bones of the pelvis appear intact without fracture or diastases. No hip dislocation. Soft tissues: No focal asymmetric soft tissue swelling. IMPRESSION: CT Chest With Contrast; Diagnostic 1. No confirmed acute injury in the chest. 2. Mild aneurysmal dilatation of the ascending thoracic aorta which measures 4.2 cm in diameter. Mild coronary artery atherosclerosis. CT Abdomen And Pelvis With Contrast No confirmed acute injury in the abdomen or pelvis. PAGE 2 Signed Report (CONTINUED) Name: TARUN WATSON [facility] : 1975 Age/S: 46 / F [address] [place] [address] Unit #: [id number] Loc: TEJAS García [address] Phys: Sampson Hernandez Acct: [id number] Dis Date: Status: REG ER PHONE #: [phone] Exam Date: 07/20/20212058 FAX #: [phone] Reason: fall, LUQ abdominal pain EXAMS: CPT CODE: [id number] CT CHEST W/CONTRAST 36166 <Continued> at 2124 Reported and signed by: Felix Cali M.D. CC: Sampson BOLTON Technologist:RT Shanique(R) CTDI: DLP: Trnscb Date/Time: 07/20/2021 (2124) [email or web address] Orig Print D/T: S: 07/20/2021 (2125) PAGE 3 Signed Report- CT ABD PELVIS W/CONT 2021-07-20 00:00:00 [facility] : 1975 Sex: F Name: TARUN WATSON [facility] : 1975 Age/S: 46 / F [address] [place] [address] Blvd Unit #: [id number] Loc: TEJAS García [address] Phys: Sampson Johnson Acct: [id number] Dis Date: Status: REG ER PHONE #: [phone] Exam Date: 07/20/20212057 FAX #: [phone] Reason: Fall, LUQ abdominal pain EXAMS: CPT CODE: [id number] CT ABD PELVIS W/CONT 29811 PROCEDURE INFORMATION: Exam: CT Chest With Contrast; Diagnostic Exam date and time: 07/20/2021 9:05 PM Age: 46 years old Clinical indication: Abdominal pain; Localized; Left upper quadrant (luq); Intercostal; Additional info: Fall, luq abdominal pain TECHNIQUE: Imaging protocol: Diagnostic computed tomography of the chest with contrast. Radiation optimization: All CT scans at this facility use at least one of these dose optimization techniques: automated exposure control; mA and/or kV adjustment per patient size (includes targeted exams where dose is matched to clinical indication); or iterative reconstruction. Contrast material: BQQ386; Contrast volume: 100 ml; Contrast route: INTRAVENOUS (IV); COMPARISON: No relevant prior studies available. FINDINGS: Lungs: No consolidation. No masses. Pleural spaces: Unremarkable. No pneumothorax. No pleural effusion. Heart: No cardiomegaly. No pericardial effusion. Mild coronary artery atherosclerosis. Aorta: Mild aneurysmal dilatation of the ascending thoracic aorta which measures 4.2 cm in diameter. Aortic arch and descending thoracic aorta normal in caliber. Lymph nodes: No enlarged lymph nodes. Bones/joints: Thoracic spine normally aligned without compression deformity or spondylolisthesis. No detected spinous process fracture. No detected displaced rib fracture. Sternum intact. Visualized bilate ral clavicles and bones of the bilateral shoulders demonstrate no detected acute injury. Soft tissues: Within normal limits. No detected fluid collection. PROCEDURE INFORMATION: Exam: CT Abdomen And Pelvis With Contrast Exam date and time: 07/20/2021 9:05 PM Age: 46 years oldClinical indication: Abdominal pain; Localized; Left upper quadrant (luq); Intercostal; Additional info: Fall, luq abdominal pain TECHNIQUE: Imaging protocol: Computed tomography of the abdomen and pelvis with contrast. Radiation optimization: All CT scans at this facility use at least one of these dose optimization techniques: automated exposure PAGE 1 Signed Report (CONTINUED) Name: JES WATSON : 1975 Age/S: 46 / F [address] [place] [address] Unit #: [id number] Loc: [place] [address] Phys: Sampson Johnson Acct: [id number] Dis Date: Status: REG ER PHONE #: [phone] Exam Date: 07/20/20212057 FAX #: [phone] Reason: Fall, LUQ abdominal pain EXAMS: CPT CODE: [id number] CT ABD PELVIS W/CONT 51120 <Continued> control; mA and/or kV adjustment per patient size (includes targeted exams where dose is matched to clinical indication); or iterative reconstruction. Contrast material: [id number]; Contrast volume: 100 ml; Contrast route: INTRAVENOUS (IV); COMPARISON: No relevant prior studies available. FINDINGS: Liver: Size and contours appear normal. Gallbladder and bile ducts: Gallbladder surgically absent. No abnormal findings seen in the postcholecystectomy bed. Pancreas: No surrounding inflammation. Spleen: No abnormality detected. Adrenal glands: No detected lesions. Kidneys and ureters: Kidneys normal in size and contour. No renal stones. Visualized portions of bilateral collecting systems demonstrate no hydronephrosis. No detected ureteral stones. Stomach and bowel: No obstructive or inflammatory pattern detected. Iqwt-fc-ujurmepz amount of stool retained within the colon. Appendix: Surgically absent; no inflammation detected in the right lower quadrant or adjacent to the cecum. Intraperitoneal space: No detected organized fluid collection. No free air. Vasculature: No detected aneurysmal dilatation of the aorta. Lymph nodes: No pathologically enlarged lymph nodes detected. Urinary bladder: Distends normally without wall thickening. Reproductive: Uterus size and contour within normal limits. Bilateral ovaries not detected. Bones/joints: Lumbar spine normally aligned without compression deformity or spondylolisthesis. No detected transverse process or spinous process fracture. Sacrum appears intact. Bones of the pelvis appear intact without fracture or diastases. No hip dislocation. Soft tissues: No focal asymmetric soft tissue swelling. IMPRESSION: CT Chest With Contrast; Diagnostic 1. No confirmed acute injury in thechest. 2. Mild aneurysmal dilatation of the ascending thoracic aorta which measures 4.2 cm in diameter. Mild coronary artery atherosclerosis. CT Abdomen And Pelvis With Contrast No confirmed acute injury in the abdomen or pelvis. PAGE 2 Signed Report (CONTINUED) Name: TARUN WATSON [facility] : 1975 Age/S: 46 / F [address] [place] [address] Unit #: [id number] Loc: [place] [address] Phys: Sampson Alvarado Acct: [id number] Dis Date: Status: REG ER PHONE #: [phone] Exam Date: 07/20/20212057 FAX #: [phone] Reason: Fall, LUQ abdominal pain EXAMS: CPT CODE: [id number] CT ABD PELVIS W/CONT 60446 <Continued> at 2124 Reported and signed by: Felix Cali M.D. CC: Sampson BOLTON Technologist:Reina Luna,RT(R) CTDI: DLP: Trnscb Date/Time: 07/20/2021 (2124) [email or web address] Orig Print D/T: S: 07/20/2021 (2125)PAGE 3 Signed ReportANA NON-REFLEX TO [id number] 08:05:02 Test Item Value Reference Range Interpretation Comments ANTI-NUCLEAR POSITIVE NEGATIVE A Methodology is Indirect ANTIBODIES (test Immunofluor escent Assay code = 3506) (IFA) with a SecureLink system using He p2000 cells (Hep2 cells tra nsfected with SS-A/Ro). A pattern reported as SS- A is considered conf irmatory in the appropriate clinical context. UNLESS OTHERWISE INDICATED, ALL TESTING PERFORMED [facility] [address] [place] [address] DIRECTOR: ANASTASIIA ERVIN M.D. CLIA NUMBER [id number] CAP ACCREDITATION N O. [id number] CBC W/AUTO DIFF WITH [id number] 06:35:05 Test Item Value Reference Range Interpretation Comments WBC (test code = 7.8 K/UL 3.5-11.0 1001) RBC (test code = 3.86 M/UL 3.80-5.40 1002) HEMOGLOBIN (test 6.7 G/DL 11.5-15.5 LL RESULTS RE CHECKED code = 1003) AND VERIFIED HEMATOCRIT (test 24.2 % 34.0-45.0 L code = 1004) MCV (test code = 62.7 fL 80.0-99.0 L 1005) MCH (test code = 17.4 PG 25.0-33.0 L 1006) MCHC (test code = 27.7 G/DL 31.0-36.0 L 1007) RDW (test code = 17.0 % 11.5-15.0 H 1038) NEUTROPHILS (test 64.0 % AUTOMATED code = 1008) DIFFERENTIAL CONFIRMED WITH MANUAL SLIDE REVIEW. N OTE: EFFECTIVE 06/15, REFERENCE INTER VALS AND FLAGGING FORRELATIVE (%) WBC DIFFERENTIAL WI LL BE ELIMINATED REDUNDANT TOABS OLUTE COUNTS.SEE [email or web address] /[email or web address] _CBC_reporting_ update LYMPHOCYTES (test 24.1 % code = 1010) MONOCYTES (test code 8.1 % = 1011) EOSINOPHILS (test 2.7 % code = 1012) BASOPHILS (test code 0.8 % = 1013) IMMATURE 0.3 % GRANYLOCYTES (test code = 1036) NUCLEATED RBCS (test 0.0 /100 See_Comment [Autom ated message] code = 1065) WBC'S The system Graphic[employer] generated this result transmitted ref erence range: 0.0. The reference range was not used to int erpret this result as normal/abnormal . PLATELET COUNT (test 217 K/UL 130-400 code = 1015) ABSOLUTE NEUTROPHILS 4.96 K/UL 1.50-7.50 (test code = 1066) ABSOLUTE LYMPHOCYTES 1.87 K/UL 1.00-4.00 (test code = 1067) ABSOLUTE MONOCYTES 0.63 K/UL 0.20-1.00 (test code = 1068) ABSOLUTE EOSINOPHILS 0.21 K/UL 0.00-0.50 (test code = 1040) ABSOLUTE BASOPHILS 0.06 K/UL 0.00-0.20 (test code = 1069) ABS IMMATURE 0.02 K/UL 0.00-0.10 GRANULOCYTES (test code = 1020) ABS NUCLEATED RBCS 0.00 K/UL 0.00-0.11 (test code = 42490) COMMENTS (test code (NOTE) SLIGHT ANISOCYTOSIS = 1016) MARKED HYPOCHRO MASIA MARKED MICROCYT OSIS SLIGHT POLYCHRO MASIA PLATELETS APPEA R NORMAL VITAMIN D, 25 [id number] 06:27:00 Test Item Value Reference Range Interpretation Comments VITAMIN D, 25 OH 16 NG/ML SEE BELOW L NOTE: 25-H YDROXYVITAMIN D (test code = 4958) ASSAY INC LUDES 25-HYDROXYVITAM IN D2 AND D3. METHODOLOGY IS CHEMILUMINESCEN T IMMUNOASSAY. INTERPRETIVE RA NGES PEDIATRIC (<17 YEARS) . . . . . . . . . . . NG/ML 20-100ADULT: I NSUFFICIENT . . . . . . . . . . . . . . NG/ML <20 SUBOP TIMAL . . . . . . . . . . . . . . . NG/ML 20-29 OPT IMAL . . . . . . . . . . . . . . . . . NG/ML 30-100 TSH, THIRD [id number] 06:20:17 Test Item Value Reference Range Interpretation Comments TSH, THIRD GENERATION (test code 0.956 UIU/ML 0.400-4.100 = 2821) COMPREHENSIVE METABOLIC [id number] 03:23:06 Test Item Value Reference Range Interpretation Comments GLUCOSE (test code = 85 MG/DL 70-99 2216) BUN (test code = 8 MG/DL 6-20 2207) CREATININE (test 0.60 MG/DL 0.60-1.30 EFFECTIVE code = 2214) 07/06/2021, [facility] HAS IMPLEMENTED THE NKF-ASN RECOMME NDED KD-EPI EGF R REFIT CALCULATI ON THAT DOES NOT INCLUDE A COEFFICIENT FOR RACE. FOR MORE INFORMATION, SE E ANNOUNCEMENT [email or web address] .[email or web address] Vanilla/EGFR_CALC eGFR (2020 CKD-EPI) 111 >60 (test code = 90054) ML/MIN/1.73 CALC BUN/CREAT (test 13 RATIO 6-28 code = 2235) SODIUM (test code = 142 MEQ/L 213-453 4393) POTASSIUM (test code 3.7 MEQ/L 3.5-5.4 = 222) CHLORIDE (test code 107 MEQ/L 95-107 = 2215) CARBON DIOXIDE (test 23 MEQ/L 19-31 code = 2206) CALCIUM (test code = 9.3 MG/DL 8.5-10.5 2208) PROTEIN, TOTAL (test 7.1 G/DL 6.1-8.3 code = 2229) ALBUMIN (test code = 4.2 G/DL 3.5-5.2 2200) CALC GLOBULIN (test 2.9 G/DL 1.9-3.7 code = 2240) CALC A/G RATIO (test 1.4 RATIO 1.0-2.6 code = 2234) BILIRUBIN, TOTAL 0.2 MG/DL See_Comment [Automated message] (test code = 2207) The syste m which generated this result transmit burke reference range : <=1.2. The refe rence range was not u sed to interpret th is result as normal/abnormal . ALKALINE PHOSPHATASE 94 U/L 40-120 (test code = 2203) AST (test code = 23 U/L 9-40 2217) ALT (test code = 18 U/L 5-40 2218) LIPID [id number] 03:23:06 Test Item Value Reference Range Interpretation Comments CHOLESTEROL (test 150 MG/DL <200 code = 2210) TRIGLYCERIDES (test 56 MG/DL <150 code = 2232) HDL CHOLESTEROL (test 53 MG/DL >39 code = 2220) CALC LDL CHOL (test 83 MG/DL <100 NOTE: C ALCULATED LDL code = 2237) IS BASED ON PREMA-DE LA GARZA METHOD WHICHINCLUDES ADJUSTABLE TRIGLYCERIDE:VL DL CHOLESTEROL RAT IO.THIS FACTOR VARIES B Y MEASURED TRIGLY CERIDE AND NON-HDLCHOL ESTEROL CONCENTRATIONS WITH INCREASED CALCU LATED LDL SEENIN HIGH ER TRIGLYCERIDE OR LOWER NON-HDL SPECIME NS. FOR MOREINFORMATION , SEE CLIENT ANNOUNCE MENT AT [email or web address] [email or web address] RATIO LDL/HDL 1.57 RATIO <3.22 (test code = 223) LACTIC ACID [id number] 10:18:00 Test Item Value Reference Range Interpretation Comments LACTIC ACID POC Test not performed 0.36-1.25 Previo usly reported (test code = mmol/L result: 3.35 LACTP) mmol/LEdited by : LINDA on 06/18/20:1017~~ Corrected Repor t ~~Reason (required):CART RIDG E ERROR PER FAL ON- TEST REPEATED W ITH NEW COLLECTION AND CARDTRIDGE [id number] 06:57:00 Test Item Value Reference Range Interpretation Comments POTASSIUM (test code = K) 3.0 MMOL/L 3.6-5.2 L [id number] 06:42:00 Test Item Value Reference Range Interpretation Comments MAGNESIUM (test code = MAG) 2.2 mg/dL 1.7-2.8 N LACTIC [id number] 06:24:00 Test Item Value Reference Range Interpretation Comments LACTIC ACID (test code = LACT) 0.80 mmol/L 0.5-2.2 N [id number] 21:26:00 Test Item Value Reference Range Interpretation Comments MAGNESIUM (test code = MAG) 1.4 mg/dL 1.7-2.8 L URINALYSIS DIPSTICK [id number] 19:39:00 Test Item Value Reference Range Interpretation [...] NEGATIVE (test code = LEUU) LACTIC ACID [id number] 18:38:00 Test Item Value Reference Range Interpretation Comments LACTIC ACID POC (test code = 2.44 mmol/L 0.36-1.25 H LACTP) LACTIC ACID [id number] 18:02:00 Test Item Value Reference Range Interpretation Comments LACTIC ACID POC (test code = 3.35 mmol/L 0.36-1.25 H LACTP) - CT ABD PELVIS W/O [id number] 17:22:00 [facility] : 1975 Sex: FPatientName: TARUN WATSON Unit No: [id number] EXAMS: CPT: [id number] CT ABD PELVIS W/O CONT 15668 CT ABDOMEN AND PELVIS WITHOUT CONTRAST Comparison: None HISTORY: UPPER ABDOMINAL PAIN Technique:Contiguous axial images through the abdomen and pelvis performed without intravenous or oral contrast. Findings: Evaluation of the solid abdominal organs and bowel limited by lack of contrast. The lung bases are clear. Small hiatal hernia. Nonspecific mild circumferential thickening of the distal esophagus. The noncontrast appearance of liver, pancreas, stomach, adrenals, spleen, aorta, is unremarkable. There is no evidence of acute diverticulitis. Appendix is not visualized with surgical sutures near the ileocecal valve, likely secondary to prior appendectomy. No bowel dilatation or obstruction. No adenopathy or free fluid. No acute osseous findings. There is no renal ureteral [...] CTDI: 9.07 DLP: 415.78 Trscr Dt/Tm: 06/17/2020 (172) by:[email or web address] Orig Print D/T: S: 06/17/2020 (1724) BATCH NO: N/A Name: TARUN WATSON FSED Phys: BARDE - Juan Maya [id number] [id number] : 1975 Age: 44 Sex: [place] [id number] Loc: KEVIN Exam Date:06/17/2020 Status: PRE ER PH: FAX: PAGE 1 Signed ReportDRUGS OF ABUSE SCREEN [id number] 17:03:00 Test Item Value Reference Range Interpretation [...] code = MDMA) NEGATIVE NEGATIVE URINALYSIS DIPSTICK [id number] 16:58:00 Test Item Value Reference Range Interpretation [...] code = LEUU) - XR CHEST 2 [id number] 16:49:00 [facility]UN WATSON : 1975 Sex: FPatientName: TARUN WATSON Unit No: [id number] EXAMS: CPT: [id number] XR CHEST 2 V 62843 COMPARISON: None.CHEST RADIOGRAPHS -FRONTAL AND LATERAL VIEWS. INDICATION: Shortness of breath. FINDINGS: The lungs are clear. No consolidation or effusion is seen. The hilar regions and pulmonary vasculature are unremarkable. Cardiac silhouette is normal. IMPRESSION: No acute lung disease. at 1649 Reported and signed by: Mykel Williamson MD CC: Juan Maya DO Technologist: Marleny Herrera Trscr Dt/Tm: 06/17/2020 (1648) by:[email or web address] [facility] Print D/T: S: 06/17/2020 (1651) BATCH NO: N/A Name: TARUN WATSON FSED Phys: BARDE - Juan Maya D XXXX FM [id number] : 1975 Age: 44 Sex: [place] [id number] [facility] Date: 06/17/2020 Status: PRE ER PH: FAX: PAGE 1 Signed Report [id number] 16:46:00 Test Item Value Reference Range Interpretation Comments AMYLASE (test code = CHRIS) 78 U/L 14-97 N COMPREHENSIVE METABOLIC [id number] 16:26:00 Test Item Value Reference Range Interpretation [...] = IU/L 42-141 N ALKP) COMPREHENSIVE METABOLIC [id number] 16:26:00 Test Item Value Reference Range Interpretation [...] 75 IU/L 42-141 N ALKP) CBC W/AUTO [id number] 16:21:00 Test Item Value Reference Range Interpretation [...] code = BA#) 0.08 K/mm3 0.0-0.1 N SARS-COV2/RT-PCR ([facility])2020-02-21 14:06:00 Test Item Value Reference Range Interpretation Comments SARS-COV2/RT-PCR (test Negative Not Detected, Negative, code = 1092976) See external report for linked test SARS-COV-2 PERFORMING LAB [facility] (test code = 6019658) Negative result for this test determines that SARS-CoV-2 RNA was not present in the specimen above the Limit of Detection (LOD). However, Negative results do not preclude SARS-CoV-2 infection and should not be used as the sole basis for treatment or patient management decisions. Negative results must be combined with clinical observations, patient history, and epidemiological information. A false negative result may occur if a specimen is improperly collected, transported or handled. A false negative result should be considered if patient's recent exposures or clinical presentation indicate that COVID-19 (SARS-CoV-2) is likely and diagnostic tests for other causes of illness are negative. Re-testing should be considered in cases of suspected false negatives.The limit of detection for this assay is 800 copies/mL.This SARS CoV-2 test is a real-time RT-PCR test intended for the qualitative detection of nucleic acid from SARS-CoV-2 in a nasopharyngeal swab specimen collected from individuals suspected of COVID-19 by their healthcare provider.This test has not been Food and Drug Administration (FDA) cleared or approved. This is a modified version of an approved Emergency Use Authorization (EUA) and is in the process of review by the FDA. Once authorized by the FDA, the issued EUA will be effective until the declaration that circumstances exist justifying the authorization of the emergency use ofin vitro diagnostic tests for detection and/or diagnosis of COVID-19 is terminated under Section 564(b)(2) of the Act or the EUA is revoked under Section 564(g) of the Act.Fact Sheet for Healthcare Prov iders:https://www.[employer]/sites/default/files/product/documents/Fact_Sheet_HC _Vnkwmojqv_Foll_OYWR-KwH-6.pdfFact Sheet for Healthcare Patients:https://www.[employer]/sites/default/files/product/docume nts/Mexy_Rgpjh_Igyddoch_Mzso_DEID-XvW-1.pdfPerforming Laboratory:[facility] [place], [place] [address]ARCZS AND [id number] 17:42:00 Test Item Value Reference Range Interpretation Comments UA Color (test code = Yellow *NA*(04/07/19 UA Color) 12:42 PM) [facility] AND [id number] 17:42:00 Test Item Value Reference Range Interpretation Comments UA Turbidity (test code = Clear (04/07/19 12:42 UA Turbidity) PM) [facility] AND [id number] 17:42:00 Test Item Value Reference Range Interpretation Comments UA Spec Grav (test code = UA Spec 1.010 1 Grav) [facility] AND [id number] 17:42:00 Test Item Value Reference Range Interpretation Comments UA pH (test code = UA pH) 6.0 1 5.0-8.0 [facility] AND [id number] 17:42:00 Test Item Value Reference Range Interpretation Comments UA Protein (test code = UA Negative mg/dL Protein) [facility] AND [id number] 17:42:00 Test Item Value Reference Range Interpretation Comments UA Glucose (test code = UA Negative mg/dL Glucose) [facility] AND [id number] 17:42:00 Test Item Value Reference Range Interpretation Comments UA Ketones (test code = UA Negative mg/dL Ketones) [facility] AND [id number] 17:42:00 Test Item Value Reference Range Interpretation Comments UA Bili (test code = Negative *NA*(04/07/19 UA Bili) 12:42 PM) [facility] AND [id number] 17:42:00 Test Item Value Reference Range Interpretation Comments UA Blood (test code = Negative (04/07/19 12:42 UA Blood) PM) [facility] AND [id number] 17:42:00 Test Item Value Reference Range Interpretation Comments UA Nitrite (test code Negative (04/07/19 12:42 = UA Nitrite) PM) [facility] AND [id number] 17:42:00 Test Item Value Reference Range Interpretation Comments UA Leuk Est (test Negative (04/07/19 12:42 code = UA Leuk Est) PM) [facility] AND [id number] 17:42:00 Test Item Value Reference Range Interpretation Comments UA Sq Epi (test code = UA Sq Occasional /LPF Epi) [facility] AND [id number] 17:42:00 Test Item Value Reference Range Interpretation Comments UA WBC (test code = 1 See_Comment [Automa burke message] The UA WBC) system which ge nerated this result transmit burke reference range : <=5. The reference range was not used to interpr et this result as marleny l/abnormal. [facility] AND [id number] 17:42:00 Test Item Value Reference Range Interpretation Comments UA Bacteria (test code = UA Occasional /HPF Bacteria) [facility] AND [id number] 17:42:00 Test Item Value Reference Range Interpretation Comments UA Mucus (test code = UA Mucus) Few /LPF [facility] AND [id number] 17:42:00 Test Item Value Reference Range Interpretation Comments UA Urobilinogen (test code = UA <=1.0 mg/dL 0.1-1.0 Urobilinogen) [facility]2019-09-14 08:47:00 Test Item Value Reference Range Interpretation Comments Phosphorus (test code = Phosphorus) 2.5 2.5-4.5 [facility]2019-09-14 08:47:00 Test Item Value Reference Range Interpretation Comments Glucose Lvl (test code = Glucose Lvl) 87 70-99 [facility]2019-09-14 08:47:00 Test Item Value Reference Range Interpretation Comments BUN (test code = BUN) 5 7-22 [facility]2019-09-14 08:47:00 Test Item Value Reference Range Interpretation Comments Creatinine Lvl (test code = Creatinine 0.37 0.50-1.40 Lvl) [facility]2019-09-14 08:47:00 Test Item Value Reference Range Interpretation Comments Sodium Lvl (test code = Sodium Lvl) 142 135-145 [facility]2019-09-14 08:47:00 Test Item Value Reference Range Interpretation Comments Potassium Lvl (test code = Potassium 3.4 3.5-5.1 Lvl) [facility]2019-09-14 08:47:00 Test Item Value Reference Range Interpretation Comments Chloride Lvl (test code = Chloride Lvl) 103 95-109 [facility]2019-09-14 08:47:00 Test Item Value Reference Range Interpretation Comments CO2 (test code = CO2) 33 24-32 [facility]2019-09-14 08:47:00 Test Item Value Reference Range Interpretation Comments AGAP (test code = AGAP) 9.4 10.0-20.0 [facility]2019-09-14 08:47:00 Test Item Value Reference Range Interpretation Comments Calcium Lvl (test code = Calcium Lvl) 8.9 8.5-10.5 [facility]2019-09-14 08:47:00 Test Item Value Reference Range Interpretation Comments eGFR (test code = eGFR) 130 [facility]2019-09-14 08:47:00 Test Item Value Reference Range Interpretation Comments Magnesium Lvl (test code = Magnesium 1.7 1.8-2.4 Lvl) [facility]2019-09-13 23:56:00 Test Item Value Reference Range Interpretation Comments Phosphorus (test code = Phosphorus) 3.0 2.5-4.5 [id number] 23:56:00 Test Item Value Reference Range Interpretation Comments Potassium Lvl (test code = Potassium 3.9 3.5-5.1 Lvl) [facility]2019-09-13 13:46:00 Test Item Value Reference Range Interpretation Comments Total Protein (test code = Total 7.0 6.4-8.4 Protein) [facility]2019-09-13 13:46:00 Test Item Value Reference Range Interpretation Comments Albumin Lvl (test code = Albumin Lvl) 3.0 3.5-5.0 [facility]2019-09-13 13:46:00 Test Item Value Reference Range Interpretation Comments Globulin (test code = Globulin) 4.0 2.7-4.2 [facility]2019-09-13 13:46:00 Test Item Value Reference Range Interpretation Comments A/G Ratio (test code = A/G Ratio) 0.8 1 0.7-1.6 [facility]2019-09-13 13:46:00 Test Item Value Reference Range Interpretation Comments ALT (test code = ALT) 40 See_Comment [Auto mated message] The system which ge nerated this result transmit burke reference range : <=65. The reference range was not used to interpr et this result as marleny l/abnormal. [place] [id number] 13:46:00 Test Item Value Reference Range Interpretation Comments AST (test code = AST) 91 See_Comment [Auto mated message] The system which ge nerated this result transmit burke reference range : <=37. The reference range was not used to interpr et this result as marleny l/abnormal. [facility]2019-09-13 13:46:00 Test Item Value Reference Range Interpretation Comments Alk Phos (test code = Alk Phos) 83 39-136 [facility]2019-09-13 13:46:00 Test Item Value Reference Range Interpretation Comments Bili Total (test code = Bili Total) 0.4 0.2-1.3 [facility]2019-09-13 13:46:00 Test Item Value Reference Range Interpretation Comments eGFR (test code = eGFR) 112 [facility]2019-09-13 13:46:00 Test Item Value Reference Range Interpretation Comments Magnesium Lvl (test code = Magnesium 1.4 1.8-2.4 Lvl) [facility]2019-09-13 13:46:00 Test Item Value Reference Range Interpretation Comments Phosphorus (test code = Phosphorus) 0.7 2.5-4.5 [id number] 13:46:00 Test Item Value Reference Range Interpretation Comments WBC (test code = WBC) 4.9 3.7-10.4 [place] 493699-09-13 13:46:00 Test Item Value Reference Range Interpretation Comments RBC (test code = RBC) 3.86 4.20-5.40 [place] 493699-09-13 13:46:00 Test Item Value Reference Range Interpretation Comments Hgb (test code = Hgb) 10.7 12.0-16.0 [facility] Hospit[id number] 13:46:00 Test Item Value Reference Range Interpretation Comments Hct (test code = Hct) 32.6 36.0-48.0 [facility] Ho[id number] 13:46:00 Test Item Value Reference Range Interpretation Comments MCV (test code = MCV) 84.5 80.0-98.0 [place] 493699-09-13 13:46:00 Test Item Value Reference Range Interpretation Comments MCH (test code = MCH) 27.8 pg 27.0-31.0 [facility] Hos[id number] 13:46:00 Test Item Value Reference Range Interpretation Comments MCHC (test code = MCHC) 32.9 32.0-36.0 [facility] HospitalWksugriXENLSKLIGH3780-20-14 13:46:00 Test Item Value Reference Range Interpretation Comments RDW (test code = RDW) 22.5 11.5-14.5 [facility] HospitalGiwwvqdRXOPZDPQKZ1409-73-68 13:46:00 Test Item Value Reference Range Interpretation Comments Platelet (test code = Platelet) 113 133-450 [facility] HospitalOfenpseZFILJPLRKV6570-66-00 13:46:00 Test Item Value Reference Range Interpretation Comments MPV (test code = MPV) 10.4 7.4-10.4 [facility] Hospit[id number] 13:46:00 Test Item Value Reference Range Interpretation Comments Segs (test code = Segs) 55.6 45.0-75.0 [facility] HospitalRjhvigqWFUBTSPOFK8669-56-60 13:46:00 Test Item Value Reference Range Interpretation Comments Lymphocytes (test code = Lymphocytes) 34.1 20.0-40.0 [facility] HospitalOesahhtOUDRABPJHI4810-53-38 13:46:00 Test Item Value Reference Range Interpretation Comments Monocytes (test code = Monocytes) 7.2 2.0-12.0 [facility] HospitalJsbkdefRYELUJSUJH1307-73-89 13:46:00 Test Item Value Reference Range Interpretation Comments Eosinophils (test code = 2.3 See_Comment [A utomated message] The Eosinophils) system which ge nerated this result tra nsmitted reference range : <=4.0. The reference r felicity was not used to int erpret this result as normal/abnormal . [facility] HospitalHpdlmrqFQEAKESUUD5306-03-32 13:46:00 Test Item Value Reference Range Interpretation Comments Basophils (test code = 0.8 See_Comment [Aut omated message] The Basophils) system which ge nerated this result tra nsmitted reference range : <=1.0. The reference r felicity was not used to int erpret this result as normal/abnormal . [facility] HospitalNpgbcghLHWAWWUOAI0108-96-94 13:46:00 Test Item Value Reference Range Interpretation Comments Neutrophils # (test code = Neutrophils 2.7 1.5-8.1 #) [facility] HospitalBwirxuqYBKHMFMSSM1684-37-13 13:46:00 Test Item Value Reference Range Interpretation Comments Lymphocytes # (test code = Lymphocytes 1.7 1.0-5.5 #) [facility] HospitalOhybjfiYPVEPMUFNY8084-79-20 13:46:00 Test Item Value Reference Range Interpretation Comments Monocytes # (test code 0.4 See_Comment [Aut omated message] The = Monocytes #) system which generated this result tra nsmitted reference range : <=0.8. The reference r felicity was not used to int erpret this result as normal/abnormal . [facility] HospitalCbduxsjDQSLCNAFOC1801-64-11 13:46:00 Test Item Value Reference Range Interpretation Comments Eosinophils # (test code 0.1 See_Comment [A utomated message] The = Eosinophils #) system whic h generated this result tra nsmitted reference range : <=0.5. The reference r felicity was not used to int erpret this result as normal/abnormal . [facility]2019-09-13 13:46:00 Test Item Value Reference Range Interpretation Comments Glucose Lvl (test code = Glucose Lvl) 114 70-99 [facility]2019-09-13 13:46:00 Test Item Value Reference Range Interpretation Comments BUN (test code = BUN) 5 7-22 [facility]2019-09-13 13:46:00 Test Item Value Reference Range Interpretation Comments Creatinine Lvl (test code = Creatinine 0.58 0.50-1.40 Lvl) [facility]2019-09-13 13:46:00 Test Item Value Reference Range Interpretation Comments Sodium Lvl (test code = Sodium Lvl) 140 135-145 [facility]2019-09-13 13:46:00 Test Item Value Reference Range Interpretation Comments Potassium Lvl (test code = Potassium 2.7 3.5-5.1 Lvl) [facility]2019-09-13 13:46:00 Test Item Value Reference Range Interpretation Comments Chloride Lvl (test code = Chloride Lvl) 101 95-109 [place] 384239-09-13 13:46:00 Test Item Value Reference Range Interpretation Comments CO2 (test code = CO2) 25 24-32 [facility]2019-09-13 13:46:00 Test Item Value Reference Range Interpretation Comments AGAP (test code = AGAP) 16.7 10.0-20.0 [facility]2019-09-13 13:46:00 Test Item Value Reference Range Interpretation Comments Calcium Lvl (test code = Calcium Lvl) 9.4 8.5-10.5 [facility]2019-09-13 13:46:00 Test Item Value Reference Range Interpretation Comments B/C Ratio (test code = B/C Ratio) 9 1 6-25 [facility] [id number] 11:47:00 Test Item Value Reference Range Interpretation Comments Troponin-I (test code no gt See_Comment [Auto mated message] The = Troponin-I) system which g enerated this result transmit burke reference range : <=0.40. The reference r felicity was not used to interpr et this result as marlney l/abnormal. [facility]2019-09-11 11:47:00 Test Item Value Reference Range Interpretation Comments Magnesium Lvl (test code = Magnesium 1.7 1.8-2.4 Lvl) [facility]2019-09-11 11:47:00 Test Item Value Reference Range Interpretation Comments Glucose Lvl (test code = Glucose Lvl) 83 70-99 [facility]2019-09-11 11:47:00 Test Item Value Reference Range Interpretation Comments BUN (test code = BUN) 3 7-22 [facility]2019-09-11 11:47:00 Test Item Value Reference Range Interpretation Comments Creatinine Lvl (test code = Creatinine 0.52 0.50-1.40 Lvl) [facility]2019-09-11 11:47:00 Test Item Value Reference Range Interpretation Comments Sodium Lvl (test code = Sodium Lvl) 135 135-145 [facility]2019-09-11 11:47:00 Test Item Value Reference Range Interpretation Comments Chloride Lvl (test code = Chloride Lvl) 99 95-109 [facility]2019-09-11 11:47:00 Test Item Value Reference Range Interpretation Comments CO2 (test code = CO2) 24 24-32 [facility]2019-09-11 11:47:00 Test Item Value Reference Range Interpretation Comments Calcium Lvl (test code = Calcium Lvl) 9.5 8.5-10.5 [facility]2019-09-11 11:47:00 Test Item Value Reference Range Interpretation Comments eGFR (test code = eGFR) 117 [facility]2019-09-11 11:47:00 Test Item Value Reference Range Interpretation Comments AGAP (test code = AGAP) 15.1 10.0-20.0 [facility] HospitalDyxpxotWSCIXRCHQN3700-06-58 11:47:00 Test Item Value Reference Range Interpretation Comments Plt Morph (test code = Normal (04/04/19 6:47 Plt Morph) AM) [facility] HospitalRyedmcbNXADFEIENU3978-70-74 11:47:00 Test Item Value Reference Range Interpretation Comments Segs (test code = Segs) 62.5 45.0-75.0 [facility] HospitalXzolipgEGPQHQEVSB0749-62-97 11:47:00 Test Item Value Reference Range Interpretation Comments Lymphocytes (test code = Lymphocytes) 25.6 20.0-40.0 [facility] HospitalUxprlhmDHUUSBIHCR4926-62-80 11:47:00 Test Item Value Reference Range Interpretation Comments Monocytes (test code = Monocytes) 10.3 2.0-12.0 [facility] HospitalOmvckedZXDIJDCSUM7630-38-28 11:47:00 Test Item Value Reference Range Interpretation Comments Eosinophils (test code = 1.2 See_Comment [A utomated message] The Eosinophils) system which ge nerated this result tra nsmitted reference range : <=4.0. The reference r felicity was not used to int erpret this result as normal/abnormal . [facility] HospitalLrtxxlyZQMMHDUAYO9564-56-80 11:47:00 Test Item Value Reference Range Interpretation Comments Basophils (test code = 0.4 See_Comment [Aut omated message] The Basophils) system which ge nerated this result tra nsmitted reference range : <=1.0. The reference r felicity was not used to int erpret this result as normal/abnormal . [facility] HospitalZtehacrXEHKUHZEUH4210-68-20 11:47:00 Test Item Value Reference Range Interpretation Comments Neutrophils # (test code = Neutrophils 2.9 1.5-8.1 #) [facility] HospitalJanenihHVAXYIIZQA6266-40-56 11:47:00 Test Item Value Reference Range Interpretation Comments Lymphocytes # (test code = Lymphocytes 1.2 1.0-5.5 #) [facility] HospitalCnscnymJQJOQQFIDO9013-17-75 11:47:00 Test Item Value Reference Range Interpretation Comments Monocytes # (test code 0.5 See_Comment [Aut omated message] The = Monocytes #) system which generated this result tra nsmitted reference range : <=0.8. The reference r felicity was not used to int erpret this result as normal/abnormal . [facility] HospitalSimtwinFGHIEEZDLB4598-66-20 11:47:00 Test Item Value Reference Range Interpretation Comments Eosinophils # (test code 0.1 See_Comment [A utomated message] The = Eosinophils #) system whic h generated this result tra nsmitted reference range : <=0.5. The reference r felicity was not used to int erpret this result as normal/abnormal . [facility] HospitalAefggxgIQRCRGBXCS8753-62-88 11:47:00 Test Item Value Reference Range Interpretation Comments Anisocyte (test code = 1+ *ABN*(04/04/19 Anisocyte) 6:47 AM) [facility] HospitalCyuznowFPUHTVDADR5929-89-82 11:47:00 Test Item Value Reference Range Interpretation Comments Macrocyte (test code = 1+ *ABN*(04/04/19 Macrocyte) 6:47 AM) [facility] HospitalGrujgdqKPWLIQTABD1304-89-25 11:47:00 Test Item Value Reference Range Interpretation Comments Microcyte (test code = 1+ *ABN*(04/04/19 Microcyte) 6:47 AM) [facility] HospitalGeuolhdYELVNROFDH3372-60-53 11:47:00 Test Item Value Reference Range Interpretation Comments Spherocyte (test code = Rare *ABN*(04/04/19 Spherocyte) 6:47 AM) [facility] HospitalTwxtpyrKKTHDDUDUH7849-46-93 11:47:00 Test Item Value Reference Range Interpretation Comments WBC (test code = WBC) 4.6 3.7-10.4 [facility] HospitalIbhhcxsXJTEVCHGOS4753-49-01 11:47:00 Test Item Value Reference Range Interpretation Comments RBC (test code = RBC) 3.94 4.20-5.40 [facility] HospitalXiarwhiELEHGAHEXM7672-51-14 11:47:00 Test Item Value Reference Range Interpretation Comments Hgb (test code = Hgb) 10.9 12.0-16.0 [facility] HospitalGyiibfiAMPKGDMKNC7799-42-90 11:47:00 Test Item Value Reference Range Interpretation Comments Hct (test code = Hct) 33.5 36.0-48.0 [facility]lineGudteomDLCAQJVOXH4966-16-88 11:47:00 Test Item Value Reference Range Interpretation Comments MCV (test code = MCV) 85.0 80.0-98.0 [facility] CenterXabkmtfHWBJCPUBXH4370-11-63 11:47:00 Test Item Value Reference Range Interpretation Comments MCH (test code = MCH) 27.7 pg 27.0-31.0 [facility] CenterNbznolmHYQIHDIZBV4316-19-75 11:47:00 Test Item Value Reference Range Interpretation Comments MCHC (test code = MCHC) 32.6 32.0-36.0 [facility]QnlzritPGMARCCSIP9951-58-35 11:47:00 Test Item Value Reference Range Interpretation Comments RDW (test code = RDW) 22.8 11.5-14.5 [facility] CenterWaibgeeOJFQHSXOWY8246-47-41 11:47:00 Test Item Value Reference Range Interpretation Comments Platelet (test code = Platelet) 108 133-450 [facility] ShorelineOqiftxrCMUSCCSERH7521-33-25 11:47:00 Test Item Value Reference Range Interpretation Comments MPV (test code = MPV) 8.1 7.4-10.4 [facility]lineCARDIAC [id number] 02:32:00 Test Item Value Reference Range Interpretation Comments Troponin-I (test code no gt See_Comment [Auto mated message] The = Troponin-I) system which g enerated this result transmit burke reference range : <=0.40. The reference r felicity was not used to interpr et this result as marleny l/abnormal. [facility] [employer] TXEJN5327-32-89 02:32:00 Test Item Value Reference Range Interpretation Comments B/C Ratio (test code = B/C Ratio) 4 1 6-25 [facility] CenterSymform RKOUH9051-54-38 02:32:00 Test Item Value Reference Range Interpretation Comments Globulin (test code = Globulin) 4.2 2.7-4.2 [facility] [employer] WWRHC5461-56-29 02:32:00 Test Item Value Reference Range Interpretation Comments A/G Ratio (test code = A/G Ratio) 0.9 1 0.7-1.6 [facility] [employer] [id number] 02:32:00 Test Item Value Reference Range Interpretation Comments Total Protein (test code = Total 7.9 6.4-8.4 Protein) [place] [id number] 02:32:00 Test Item Value Reference Range Interpretation Comments Albumin Lvl (test code = Albumin Lvl) 3.7 3.5-5.0 [place] 384239-09-11 02:32:00 Test Item Value Reference Range Interpretation Comments ALT (test code = ALT) 38 See_Comment [Auto mated message] The system which ge nerated this result transmit burke reference range : <=65. The reference range was not used to interpr et this result as marleny l/abnormal. [place] [id number] 02:32:00 Test Item Value Reference Range Interpretation Comments AST (test code = AST) 70 See_Comment [Auto mated message] The system which ge nerated this result transmit burke reference range : <=37. The reference range was not used to interpr et this result as marleny l/abnormal. [place] [id number] 02:32:00 Test Item Value Reference Range Interpretation Comments Alk Phos (test code = Alk Phos) 104 39-136 [facility]2019-09-11 02:32:00 Test Item Value Reference Range Interpretation Comments Bili Total (test code = Bili Total) 2.0 0.2-1.3 [place] 384239-09-11 02:32:00 Test Item Value Reference Range Interpretation Comments Ketone Quantitative (test code = Ketone 3.41 Quantitative) [place] 384239-09-11 02:32:00 Test Item Value Reference Range Interpretation Comments Osmolality (test code = Osmolality) 278 280-300 [facility]2019-09-11 02:32:00 Test Item Value Reference Range Interpretation Comments Lactic Acid Lvl (test code = Lactic 1.0 0.5-2.2 Acid Lvl) [id number] 02:32:00 Test Item Value Reference Range Interpretation Comments WBC (test code = WBC) 7.6 3.7-10.4 [place] [id number] 02:32:00 Test Item Value Reference Range Interpretation Comments RBC (test code = RBC) 3.81 4.20-5.40 [place] [id number] 02:32:00 Test Item Value Reference Range Interpretation Comments Hgb (test code = Hgb) 10.6 12.0-16.0 [id number] 02:32:00 Test Item Value Reference Range Interpretation Comments Hct (test code = Hct) 32.5 36.0-48.0 [id number] 02:32:00 Test Item Value Reference Range Interpretation Comments MCV (test code = MCV) 85.5 80.0-98.0 [facility]IhawmqnFYIRIZAKZX5979-98-12 02:32:00 Test Item Value Reference Range Interpretation Comments MCH (test code = MCH) 27.8 pg 27.0-31.0 [facility]WafxkuwDGDAFSBEQN0741-30-39 02:32:00 Test Item Value Reference Range Interpretation Comments MCHC (test code = MCHC) 32.6 32.0-36.0 [id number] 02:32:00 Test Item Value Reference Range Interpretation Comments RDW (test code = RDW) 22.2 11.5-14.5 [facility] HospitalWnkxyokUQVYVEUIHZ9210-55-07 02:32:00 Test Item Value Reference Range Interpretation Comments Platelet (test code = Platelet) 104 133-450 [facility] HospitalTjxlaurGDCTJLFLNS4837-77-73 02:32:00 Test Item Value Reference Range Interpretation Comments MPV (test code = MPV) 8.3 7.4-10.4 [facility] HospitalHpepibxPYCLTTUHZE9556-92-53 02:32:00 Test Item Value Reference Range Interpretation Comments INR (test code = INR) 1.12 1 0.85-1.17 [id number] 02:32:00 Test Item Value Reference Range Interpretation Comments PT (test code = PT) 14.2 s 12.0-14.7 [facility] HospitalLhaofaiBYHQPMZCXQ0130-59-02 02:32:00 Test Item Value Reference Range Interpretation Comments PTT (test code = PTT) 27.6 s 22.9-35.8 [facility] HospitalXjgehmuPIRTYLJVDU0489-65-00 02:32:00 Test Item Value Reference Range Interpretation Comments Plt Morph (test code = Normal (04/03/19 9:32 Plt Morph) PM) [facility] Hospit[id number] 02:32:00 Test Item Value Reference Range Interpretation Comments Segs (test code = Segs) 72.4 45.0-75.0 [facility] Hospit[id number] 02:32:00 Test Item Value Reference Range Interpretation Comments Lymphocytes (test code = Lymphocytes) 17.6 20.0-40.0 [facility] Hospit[id number] 02:32:00 Test Item Value Reference Range Interpretation Comments Monocytes (test code = Monocytes) 9.7 2.0-12.0 [facility] H[id number] 02:32:00 Test Item Value Reference Range Interpretation Comments Eosinophils (test code = 0.1 See_Comment [A utomated message] The Eosinophils) system which ge nerated this result tra nsmitted reference range : <=4.0. The reference r felicity was not used to int erpret this result as normal/abnormal . [facility] Hospit[id number] 02:32:00 Test Item Value Reference Range Interpretation Comments Basophils (test code = 0.2 See_Comment [Aut omated message] The Basophils) system which ge nerated this result tra nsmitted reference range : <=1.0. The reference r felicity was not used to int erpret this result as normal/abnormal . [facility] Hospit[id number] 02:32:00 Test Item Value Reference Range Interpretation Comments Neutrophils # (test code = Neutrophils 5.5 1.5-8.1 #) [facility] Hospit[id number] 02:32:00 Test Item Value Reference Range Interpretation Comments Lymphocytes # (test code = Lymphocytes 1.3 1.0-5.5 #) [facility] Hos[id number] 02:32:00 Test Item Value Reference Range Interpretation Comments Monocytes # (test code 0.7 See_Comment [Aut omated message] The = Monocytes #) system which generated this result tra nsmitted reference range : <=0.8. The reference r felicity was not used to int erpret this result as normal/abnormal . [id number] 02:32:00 Test Item Value Reference Range Interpretation Comments Ethanol Lvl (test code = Ethanol Lvl) no gt [facility]lineKdgizceLHRTAUKNDQ8503-81-29 02:32:00 Test Item Value Reference Range Interpretation Comments Etoh (%) (test code = Etoh (%)) no [facility] METABOLIC [id number] 12:36:00 Test Item Value Reference Range Interpretation [...] GFR) formula.Chronic kidney disease is defined as ei er kidney damageor GFR <60 mL/min/1.73 m2 for >3 months. CREATININE (test code 0.60 mg/dL 0.55-1.02 N Note change in = CREAT) reference range due to change in reagent. BUN/CREATININE RATIO 13.9 10-20 N (test code = BUN/CREA) CALCIUM (test code = 9.1 mg/dL 8.5-10.1 N CA) BASIC METABOLIC [id number] 12:30:00 Test Item Value Reference Range Interpretation [...] code = HCGTRIAGE) SPECIMEN COMMENTS: URINECOMMENTS TO SENIOR JAVA ARCHITECT: URINE TESTUrine Test Result: NEGATIVEAre internal controls (presence of a control line & clear background) OK? YLot # of HCG Test Kit: [id number] Date of Kit: 06/23/2020Test Performed by: Marlene Perfomed on: 01/24/19CHEMISTRY 8 [id number] 13:46:00 Test Item Value Reference Range Interpretation [...] >60 H code = GFRBED) CHEMISTRY 8 [id number] 13:46:00 Test Item Value Reference Range Interpretation [...] H (test code = GFRBED) POC LACTIC [id number] 13:40:00 Test Item Value Reference Range Interpretation Comments POC LACTIC ACID (test code = 0.94 MMOL/L 0.4-2.2 N POCLAC) URINALYSIS [id number] 02:02:00 Test Item Value Reference Range Interpretation [...] #/LPF FEW Urine Source? Clean CatchBASIC METABOLIC [id number] 01:55:00 Test Item Value Reference Range Interpretation [...] MDRD formula.Chronic kidney disease is defined as [facility] er kidney damageor GFR <60 mL/min/1.73 m2 for >3 months. CREATININE (test code 0.40 mg/dL 0.55-1.02 L Note change in = CREAT) reference range due to change in reagent. BUN/CREATININE RATIO 10.0 10-20 N (test code = BUN/CREA) CALCIUM (test code = 7.7 mg/dL 8.5-10.1 L CA) HEPATIC FUNCTION [id number] 01:55:00 Test Item Value Reference Range Interpretation [...] range due ALKP) to change in reagent. [id number] 01:55:00 Test Item Value Reference Range Interpretation Comments LIPASE (test code = LIP) 123 U/L 73.0-393.0 N HCG SERUM [id number] 01:55:00 Test Item Value Reference Range Interpretation Comments HCG SERUM QUAL (test NEGATIVE NEGATIVE This HC GQL test is NOT code = HCGQL) applicable for MALE patients.Check with nurse about probable order error.If Tumor Marker Test needed, nu rse should order test "HCG TU"(Test #550.40893)---- - BASIC METABOLIC [id number] 01:48:00 Test Item Value Reference Range Interpretation [...] code = CA) mg/dL 8.5-10.1 HEPATIC FUNCTION [id number] 01:48:00 Test Item Value Reference Range Interpretation [...] TOTAL (test IUnit/L 45-117 code = ALKP) [id number] 01:48:00 Test Item Value Reference Range Interpretation Comments LIPASE (test code = LIP) U/L 73.0-393.0 HCG SERUM [id number] 01:48:00 Test Item Value Reference Range Interpretation Comments HCG SERUM QUAL (test NEGATIVE NEGATIVE This HC GQL test is NOT code = HCGQL) applicable for MALE patients.Check with nurse about probable order error.If Tumor Marker Test needed, nu rse should order test "HCG TU"(Test #550.98417)---- - [id number] 01:48:00 Test Item Value Reference Range Interpretation Comments MAGNESIUM (test code = MAG) 1.7 mg/dL 1.8-2.4 L BASIC METABOLIC [id number] 01:41:00 Test Item Value Reference Range Interpretation [...] code = CA) mg/dL 8.5-10.1 HEPATIC FUNCTION [id number] 01:41:00 Test Item Value Reference Range Interpretation [...] TOTAL (test IUnit/L 45-117 code = ALKP) [id number] 01:41:00 Test Item Value Reference Range Interpretation Comments LIPASE (test code = LIP) U/L 73.0-393.0 HCG SERUM [id number] 01:41:00 Test Item Value Reference Range Interpretation Comments HCG SERUM QUAL (test NEGATIVE NEGATIVE This HC GQL test is NOT code = HCGQL) applicable for MALE patients.Check with nurse about probable order error.If Tumor Marker Test needed, nu rse should order test "HCG TU"(Test #550.49514)---- - CBC W/O [id number] 01:37:00 Test Item Value Reference Range Interpretation [...]
[2022-05-28] MEDS ORDERED: FAMOTIDINE 20 MG/2 ML VIAL IV ONE (06:33)
[2022-05-28 06:38] LABS: Urine Blood Negative (Negative); Urine Glucose Negative (Negative); Urine Protein Negative (Negative)
[2022-05-28 06:47] LABS: Absolute Lymphocytes (CBC) 1.6 K/uL (0.7-4.9); Hematocrit 41.9 % (36.0-45.0); Lymphocytes % 30.9 % (15.3-44.8); MCV 87.8 fL (80-100); MPV 8.4 fL (7.6-11.3); RBC Red Blood Cell Count 4.77 M/uL (3.86-4.86)
[2022-05-28 07:05] LABS: Albumin 3.8 g/dL (3.4-5.0); Bilirubin Total 0.5 mg/dL (0.2-1.0); Potassium 3.4 mmol/L (3.5-5.1); Protein, Total 7.4 g/dL (6.4-8.2)
[2022-05-28] MEDS ORDERED: HYDROCODONE/APAP 5/325 MG TAB ONE (07:38)
--- NOTE | 2022-05-28 07:52 | EDPHYS ---
Physician Documentation [facility] Name: Diana Watson Age: 46 yrs Sex: Female : 1975 Arrival Date: 05/28/2022 Time: 06:09 Bed 4 Private MD: ED Physician Srikanth Drew HPI: 05/28 06:59 This 46 yrs old Female presents to ER via EMS with complaints of abd pain. rn 06:59 The patient presents with abdominal pain in the left upper quadrant. Onset: The rn symptoms/episode began/occurred 2 month(s) ago. The symptoms do not radiate. Associated signs and symptoms: Pertinent positives: nausea and vomiting, diarrhea, Pertinent negatives: fever. The symptoms are described as achy. Modifying factors: The symptoms are alleviated by nothing, the symptoms are aggravated by touching the area. Severity of pain: At its worst the pain was mild in the emergency department the pain is unchanged. The patient has not experienced similar symptoms in the past. The patient has not recently seen a physician. Pt reports left sided abd pain, assoc with nausea/vomiting/diarrhea, no fever. Reports birdcammieth fell on her 2 months ago and has had this pain since then. Started on risperidone 2 weeks ago, doesn't know why. Wants to know if she is . No vaginal bleeding or discharge. . 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 - Social history:: Smoking status: Patient reports the use of cigarette tobacco products, denies chronic smoking, but will smoke occasionally, Reported history of juuling and/or vaping. - Family history:: not pertinent. - Hospitalizations: : No recent hospitalization is reported. ROS: 06:59 Constitutional: Negative for fever, chills, and weight loss, Eyes: Negative for injury, rn pain, redness, and discharge, Neck: Negative for injury, pain, and swelling, Cardiovascular: Negative for chest pain, palpitations, and edema, Respiratory: Negative for shortness of breath, cough, wheezing, and pleuritic chest pain, Abdomen/GI: + left sided abd pain and nausea/vomiting/diarrhea Back: Negative for injury and pain, MS/Extremity: Negative for injury and deformity, Skin: Negative for injury, rash, and discoloration, Neuro: Negative for headache, weakness, numbness, tingling, and seizure. Exam: 06:59 Constitutional: This is a well developed, well nourished patient who is awake, alert, rn and in no acute distress. Ambulatory to bathroom. Head/Face: Normocephalic, atraumatic. Eyes: Pupils equal round and reactive to light, extra-ocular motions intact. Lids and lashes normal. Conjunctiva and sclera are non-icteric and not injected. Cornea within normal limits. Periorbital areas with no swelling, redness, or edema. ENT: MMM Cardiovascular: Regular rate and rhythm. No pulse deficits. Respiratory: No increased work of breathing, no retractions or nasal flaring. Abdomen/GI: soft, mild left sided abd tenderness, no ecchymosis, no swelling, no masses Skin: Warm, dry MS/ Extremity: Pulses equal, no cyanosis. Neuro: Awake and alert, GCS 15 Vital Signs: 06:18 BP 148 / 85; Pulse 71; Resp 18 S; Temp 97.8(O); Pulse Ox 100% on R/A; Weight 68.04 kg as6 (R); Height 5 ft. 8 in. (172.72 cm) (R); Pain 6/10; 07:27 BP 141 / 86; Pulse 68; ll1 06:18 Body Mass Index 22.81 (68.04 kg, 172.72 cm) as6 MDM: 06:11 Patient medically screened. rn 07:49 Differential diagnosis: gastritis, gastroesophageal reflux disease, non-specific abd rn pain, pancreatitis, Peptic Ulcer Disease, urinary tract infection. Data reviewed: vital signs, nurses notes, lab test result(s), and as a result, I will discharge patient. Counseling: I had a detailed discussion with the patient and/or guardian regarding: the historical points, exam findings, and any diagnostic results supporting the discharge/admit diagnosis, lab results, the need for outpatient follow up, to return to the emergency department if symptoms worsen or persist or if there are any questions or concerns that arise at home. Special discussion: Based on the patient's Hx, exam, and Dx evaluation, there is no indication for emergent surgery or inpatient Tx. It is understood by the patient/guardian that if the Sx's persist or worsen they need to return immediately for re-evaluation. I discussed with the patient/guardian in detail that at this point there is no indication for admission to the hospital. It is understood, however, that if the symptoms persist or worsen the patient needs to return immediately for re-evaluation. Based on the history and exam findings, there is no indication for further emergent testing or inpatient evaluation. 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 I discussed with the patient/guardian the need to see the primary care provider for further evaluation of the symptoms. ED course: Pt with no acute findings in blood or urine, stable vitals. Pt refuses CT abdomen to further eval abdominal pain. Will dc home with return precautions, for this 2 months of abd pain after bird bath fell on her. Possible side effect of medications vs anxiety vs known peptic ulcers. . 05/28 06:28 Order name: CBC with Diff; Complete Time: 07:23 rn 05/28 06:28 Order name: CMP; Complete Time: 07:23 rn 05/28 06:28 Order name: Lipase; Complete Time: 07:23 rn 05/28 06:38 Order name: Urine Dipstick-Ancillary; Complete Time: 07:23 EDMS 05/28 06:39 Order name: Urine --Ancillary (enter results) eb 05/28 06:28 Order name: IV Saline Lock; Complete Time: 06:41 rn 05/28 06:28 Order name: Labs collected and sent; Complete Time: 06:41 rn 05/28 06:28 Order name: Urine Dipstick-Ancillary (obtain specimen); Complete Time: 06:41 rn 05/28 06:28 Order name: Urine Test (obtain specimen); Complete Time: 06:41 rn Administered Medications: 06:41 Drug: Pepcid (famotidine) 20 mg Route: IVP; Site: right antecubital; as6 07:42 Follow up: Response: No adverse reaction ll1 07:42 Drug: [place] (HYDROcodone-acetaminophen) 5 mg-325 mg 1 tabs {Note: rass 0, pain 5/10.} ll1 Route: PO; Disposition Summary: 05/28/22 07:51 Discharge Ordered Location: Home rn Problem: an ongoing problem rn Symptoms: have improved rn Condition: Stable rn Diagnosis - Abdominal pain, unspecified rn Followup: rn - With: Private Physician - When: As needed - Reason: Recheck today's complaints, Re-evaluation by your physician Discharge Instructions: - Discharge Summary Sheet rn - Abdominal Pain, Adult rn - Pain Without a Known Cause rn Forms: - Medication Reconciliation Form rn - Thank You Letter rn - Antibiotic rn access - Prescription Opioid Use rn Signatures: Dispatcher [employer] Srikanth Mendez MD MD rn Lewis, Lynsay, RN RN ll1 Olivier Day, RN RN as6
--- NOTE | 2022-05-28 07:52 | ER ---
Nurse's Notes [facility] Name: Diana Watson Age: 46 yrs Sex: Female : 1975 Arrival Date: 05/28/2022 Time: 06:09 Bed 4 Private MD: Diagnosis: Abdominal pain, unspecified Presentation: 05/28 06:18 Chief complaint: Patient states: "I have pain right here (LLQ) its stabbing. I also as6 have nausea vomiting diarrhea. It's probably an ulcer. I an also worried I'm " EMS states: called out for paranoia. Coronavirus screen: At this time, the client does not indicate any symptoms associated with coronavirus-19. Ebola Screen: No symptoms or risks identified at this time. Initial Sepsis Screen: Does the patient meet any 2 criteria? No. Patient's initial sepsis screen is negative. Does the patient have a suspected source of infection? No. Patient's initial sepsis screen is negative. Risk Assessment: Do you want to hurt yourself or someone else? Patient reports no desire to harm self or others. Onset of symptoms was May 28, 2022. 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 - Social history:: Smoking status: Patient reports the use of cigarette tobacco products, denies chronic smoking, but will smoke occasionally, Reported history of juuling and/or vaping. - Family history:: not pertinent. - Hospitalizations: : No recent hospitalization is reported. Screenin:25 Abuse screen: Denies threats or abuse. Denies injuries from another. Nutritional as6 screening: No deficits noted. Tuberculosis screening: No symptoms or risk factors identified. Fall Risk None identified. Assessment: 06:24 General: Appears in no apparent distress. unkempt, Behavior is cooperative, anxious. as6 Pain: Complains of pain in left lower quadrant Quality of pain is described as stabbing. Neuro: Level of Consciousness is awake, alert, obeys commands. Respiratory: Respiratory effort is even, unlabored, Breath sounds are clear bilaterally. GI: Abdomen is flat, Bowel sounds present X 4 quads. Reports lower abdominal pain, diarrhea, nausea, vomiting. 07:20 Reassessment: No changes from previously documented assessment. Patient and/or family ll1 updated on plan of care and expected duration. Pain level reassessed. Vital Signs: 06:18 BP 148 / 85; Pulse 71; Resp 18 S; Temp 97.8(O); Pulse Ox 100% on R/A; Weight 68.04 kg as6 (R); Height 5 ft. 8 in. (172.72 cm) (R); Pain 6/10; 07:27 BP 141 / 86; Pulse 68; ll1 06:18 Body Mass Index 22.81 (68.04 kg, 172.72 cm) as6 ED Course: 06:09 Patient arrived in ED. as6 06:11 Srikanth Drew MD is Attending Physician. rn 06:20 Triage completed. as6 06:23 Arm band placed on. as6 06:24 Olivier Day, CARLY is Primary Nurse. as6 06:25 Bed in low position. Call light in reach. Side rails up X 1. as6 06:35 Inserted saline lock: 20 gauge in right antecubital area, using aseptic technique. as6 Blood collected. 06:41 CBC with Diff Sent. as6 06:41 CMP Sent. as6 06:41 Lipase Sent. as6 08:00 No provider procedures requiring assistance completed. IV discontinued, intact, jl7 bleeding controlled, No redness/swelling at site. Pressure dressing applied. Administered Medications: 06:41 Drug: Pepcid (famotidine) 20 mg Route: IVP; Site: right antecubital; as6 07:42 Follow up: Response: No adverse reaction ll1 07:42 Drug: [place] (HYDROcodone-acetaminophen) 5 mg-325 mg 1 tabs {Note: rass 0, pain 5/10.} ll1 Route: PO; Medication: 07:27 VIS not applicable for this client. ll1 Outcome: 07:51 Discharge ordered by . rn 08:00 Discharged to home ambulatory. frantz 08:00 Condition: stable 08:00 Discharge instructions given to patient, Instructed on discharge instructions, follow up and referral plans. Demonstrated understanding of instructions, follow-up care. 08:00 Patient left the ED. jl7 Signatures: Srikanth Drew MD MD rn Leal, Jahala RN RN jl7 Nubia Chavarria RN RN ll1 Olivier Day RN RN as6
[2022-05-28 08:07] VITALS: TEMP 97.8; O2SAT 100
[2022-05-28 08:08] VITALS: BP 141/86
== END 2022-05-28 08:00 | disposition home or self-care (01) ==
LOC: ER 06:08
DX: R10.12 Left upper quadrant pain (principal); F17.210 Nicotine dependence, cigarettes, uncomplicated; F10.20 Alcohol dependence, uncomplicated; I10 Essential (primary) hypertension
CPT/HCPCS: 36415; 80053; 81003; 81025; 83690; 85025; 96374; 99284

== ENCOUNTER 2022-05-30 22:46 | Emergency (ER) | payer SELFPAY ==
--- OUTSIDE RECORDS SUMMARY | 2022-05-30 22:54 | XMS REPORT | Continuity of Care Document ---
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 (test code 6.4 g/dL 11.0-15.0 LL Critic al result = HGB) called to CARLY CEDEÑO Rbsalima [id number] at 20 09 12/27/21Ndeirdre hand back resut and tech confirmed it's correct? [...] NO (test code = MDIFF) COMPREHENSIVE METABOLIC [id number] 19:46:00 Test Item Value Reference Range Interpretation [...] TOTAL (test code = ALKP) TROP-I HIGH [id number] 19:46:00 Test Item Value Reference Range Interpretation [...] These resu lts were obtained using Siemens AtellAllocadia IM TnI Hreagent. Results from di fferent methodologies s hould not becompared to o ne another as quantitative results and URLs mayvar y by method. HCG SERUM [id number] 19:39:00 Test Item Value Reference Range Interpretation Comments HCG SERUM QUAL (test code = SERUM NEGATIVE NEGATIVE HCGQL) UA RFLX MICR CULT IF [id number] 19:35:00 Test Item Value Reference Range Interpretation [...] Flank PainSpecimen Description: MID STREAM- CT CHEST W/[id number] 00:00:00 [facility] 1975 Sex: F Name: TARUN WATSON [facility] : 1975 Age/S: 46 / F [address] [place] [address] Unit #: [id number] Loc: [place] [address] Phys: Sampson Johnson Acct: [id number] Dis Date: Status: REG ER PHONE #: [phone] Exam Date: 07/20/20212058 FAX #: [phone] Reason: fall, LUQ abdominal pain EXAMS: CPT CODE: [id number] CT CHEST W/CONTRAST 52283 PROCEDURE INFORMATION: Exam: CT Chest With Contrast; [...] patient size (includes targeted exams where dose ismatched to clinical indication); or iterative reconstruction. Contrast material: HSF486; Contrast volume: 100 ml; Contrast route: INTRAVENOUS [...] detected displaced rib fracture. Sternum intact. Visualized bilateralclavicles and bones of the bilateral shoulders demonstrate [...] protocol: Computed tomography of the abdomen and pelviswith contrast. Radiation optimization: All CT scans at this facility use at least one of these dose optimization techniques: automated exposure PAGE 1 Signed Report (CONTINUED) Name: TARUN WATSON [facility] : 1975 Age/S: 46 / F [address] [place] [address] Unit #: [id number] Loc: [place] [address] Phys: Sampson Johnson Acct: [id number] Dis Date: Status: REG ER PHONE #: [phone] Exam Date: 07/20/20212058 FAX #: [phone] Reason: fall, LUQ abdominal pain EXAMS: CPT CODE: [id number] CT CHEST W/CONTRAST 20000 <Continued> control; mA and/or kV adjustment per patient size (includes targeted exams where dose is matched to clinical indication); or iterative reconstruction. Contrast material: ECV312; Contrast volume: 100 ml; Contrast route: INTRAVENOUS (IV); COMPARISON: No rele vant prior studies available. FINDINGS: Liver: Size and contours appear normal. Gallbladder and bile ducts: Gallbladder surgically absent. No abnormal findings seen in the postcholecystectomy bed. Pancreas: No surrounding inflammation. Spleen: No abnormality detected. Adrenal glands: No detected lesions. Kidneys and ureters: Kidneys normal in size and contour. No renal stones. Visualized portions ofbilateral collecting systems demonstrate no hydronephrosis. No detected ureteral stones. Stomach andbowel: No obstructive or inflammatory pattern detected. Thml-pw-goikyyjd amount of stool retained within the colon. Appendix: Surgically absent; no inflammation detected in the right lower quadrant oradjacent to the cecum. Intraperitoneal space: No detected organized fluid collection. No free air. Vasculature: No detected aneurysmal dilatation of the aorta. Lymph nodes: No pathologically enlarged lymph nodes detected. Urinary bladder: Distends normally without wall thickening. Reproductive: Uterussize and contour within normal limits. Bilateral ovaries not detected. Bones/joints: Lumbar spine normally aligned without compression deformity or spondylolisthesis. No detected transverse process orspinous process fracture. Sacrum appears intact. Bones of [...] And Pelvis With Contrast No confirmed acute injuryin the abdomen or pelvis. PAGE 2 Signed Report (CONTINUED) Name: TARUN WATSON [facility] :1975 Age/S: 46 / F [address] [place] [address] Unit #: [id number] Loc: [place] [address] Phys: Sampson Johnson Acct: [id number] Dis Date: Status: REG ER PHONE #: [phone] Exam Date: 07/20/20212058 FAX #: [phone] Reason: fall, LUQ abdominal pain EXAMS: CPT CODE: [id number] CT CHEST W/CONTRAST 05836 <Continued> at 2125 Reported and signed by: Felix Cali M.D. CC: Sampson BOLTON Technologist:RT Shanique(R) CTDI: DLP: Trnscb Date/Time: 07/20/2021 (2124) [email or web address] Orig Print D/T: S: 07/20/2021 (2125) PAGE3 Signed Report- CT ABD PELVIS [id number] 00:00:00 [facility] : 1975 Sex: F Name: TARUN WATSON [facility] : 1975 Age/S: 46 / F [address] [place] [address] Unit #: [id number] Loc: [place] [address] Phys: Sampson Johnson Acct: [id number] Dis Date: Status: REG ER PHONE #: [phone] Exam Date: 07/20/20212057 FAX #: [phone] Reason: Fall, LUQ abdominal pain EXAMS: CPT CODE: [id number] CT ABD PELVIS W/CONT 71830 PROCEDURE INFORMATION: Exam: CT Chest With Contrast; Diagnostic Exam date and time: 07/20/2021 9:05 PM Age: 46 years old Clinical indication: Abdominal pain; Localized; Left upper quadrant (luq); Intercostal; Additional info: Fall, luq abdominal painTECHNIQUE: Imaging protocol: Diagnostic computed tomography of the chest with contrast. Radiation optimization: All CT scans at this facility use at least one of these dose optimization techniques: automated exposure control; mA and/or kV adjustment per patient size (includes targeted exams where doseis matched to clinical indication); or iterative reconstruction. Contrast material: ZTH581; Contrast volume: 100 ml; Contrast route: INTRAVENOUS [...] detected displaced rib fracture. Sternum intact. Visualized bilater al clavicles and bones of the bilateral shoulders [...] 1 Signed Report (CONTINUED) Name: TARUN WATSON [facility] : 1975 Age/S: 46 / F [address] [place], [place] [address] Unit #: [id number] Loc: [place] [address] Phys: Sampson Johnson Acct: [id number] Dis Date: Status: REG ER PHONE #: [phone] Exam Date: 07/20/20212057 FAX #: [phone] Reason: Fall, LUQ abdominal pain EXAMS: CPT CODE: [id number] CT ABD PELVIS W/CONT 87377 <Continued> control; mA and/or kV adjustment per patient size (includes targeted exams where dose is matched to clinical indication); or iterative reconstruction. Contrast material: VUQ091; Contrast volume: 100 ml; Contrast route: INTRAVENOUS [...] bowel: No obstructive or inflammatory pattern detected. Yksv-wn-okjtlsth amount of stool retained within the colon. [...] compression deformity or spondylolisthesis. No detected transverse processor spinous process fracture. Sacrum appears intact. Bones [...] 2 Signed Report (CONTINUED) Name: TARUN WATSON [facility] : 1975 Age/S: 46 / F [address] [place] [address] Unit #: [id number] Loc: [place] [address] Phys: Sampson Johnson Acct: [id number] Dis Date: Status: REG ER PHONE #: [phone] Exam Date: 07/20/20212057 FAX #: [phone] Reason: Fall, LUQ abdominal pain EXAMS: CPT CODE: [id number] CT ABD PELVISW/CONT 19668 <Continued> at 2124 Reported and signed by: Felix Cali M.D. CC: Sampson BOLTON Technologist:RT Shanique(R) CTDI: DLP: Trnscb Date/Time: 07/20/2021 (2124) [email or web address] Orig Print D/T: S: 07/20/2021 (3158) PAGE 3 Signed ReportANA NON-REFLEX TO [id number] 08:05:02 Test Item Value Reference Range Interpretation Comments ANTI-NUCLEAR POSITIVE NEGATIVE A Methodology is Indirect ANTIBODIES (test Immunofluor escent Assay code = 3506) (IFA) with a [employer] system using He p2000 cells (Hep2 cells tra nsfected with SS-A/Ro). A pattern reported as SS- A is considered conf irmatory in the appropriate clinical context. UNLESS OTHERWISE INDICATED, ALL TESTING PERFORMED [facility] [address] [place], [place] [address] [place] [address] DIRECTOR: ANASTASIIA ERVIN M.D. CLIA NUMBER [id number] CAP ACCREDITATION N O. [id number] CBC W/AUTO DIFF WITH [id number] 06:35:05 Test Item Value Reference Range Interpretation [...] LL BE ELIMINATED REDUNDANT TOABS OLUTE COUNTS.SEE [email or web address] /final _CBC_reporting_ update LYMPHOCYTES (test 24.1 % code = 1010) MONOCYTES (test code 8.1 % = 1011) EOSINOPHILS (test 2.7 % code = 1012) BASOPHILS (test code 0.8 % = 1013) IMMATURE 0.3 % GRANYLOCYTES (test code = 1036) NUCLEATED RBCS (test 0.0 /100 See_Comment [Autom ated message] code = 1065) WBC'S The system [employer] generated this result transmitted ref erence range: [...] RBCS 0.00 K/UL 0.00-0.11 (test code = 15682) COMMENTS (test code (NOTE) SLIGHT ANISOCYTOSIS = 1016) MARKED HYPOCHRO MASIA MARKED MICROCYT OSIS SLIGHT POLYCHRO MASIA PLATELETS APPEA R NORMAL VITAMIN D, 25 [id number] 06:27:00 Test Item Value Reference Range Interpretation Comments VITAMIN D, 25 OH 16 NG/ML SEE BELOW L NOTE: 25-H YDROXYVITAMIN D (test code = 4958) ASSAY INC LUDES 25-HYDROXYVITAM IN D2 AND D3. METHODOLOGY IS CHEMILUMINESCEN T IMMUNOASSAY. INTERPRETIVE RA NGES PEDIATRIC (<17 YEARS) . . . . . . . . . . . NG/ML 20-100ADULT: IN SUFFICIENT . . . . . . . . . . . . . . NG/ML <20 SUBOP TIMAL . . . . . . . . . . . . . . . NG/ML 20-29 OPT IMAL . . . . . . . . . . . . . . . . . NG/ML 30-100 TSH, THIRD [id number] 06:20:17 Test Item Value Reference Range Interpretation Comments TSH, THIRD GENERATION (test code 0.956 UIU/ML 0.400-4.100 = 2821) COMPREHENSIVE METABOLIC [id number] 03:23:06 Test Item Value Reference Range Interpretation Comments GLUCOSE (test code = 85 MG/DL 70-99 2216) BUN (test code = 8 MG/DL 6-20 2207) CREATININE (test 0.60 MG/DL 0.60-1.30 EFFECTIVE code = 2214) 07/06/2021, [facility] HAS IMPLEMENTED THE NKF-ASN RECOMME NDED KD-EPI EGF R REFIT CALCULATI ON THAT DOES NOT INCLUDE A COEFFICIENT FOR RACE. FOR MORE INFORMATION, SE E ANNOUNCEMENT [email or web address] .[email or web address]_CALC eGFR (2020 CKD-EPI) 111 >60 (test code = 06191) ML/MIN/1.73 CALC BUN/CREAT (test 13 RATIO 6-28 code = 2235) SODIUM (test code = 142 MEQ/L 722-862 7543) POTASSIUM (test code 3.7 MEQ/L 3.5-5.4 = 2228) CHLORIDE (test code 107 MEQ/L 95-107 = [...] PHOSPHATASE 94 U/L 40-120 (test code = 2204) AST (test code = 23 U/L 9-40 2217) ALT (test code = 18 U/L 5-40 2218) LIPID [id number] 03:23:06 Test Item Value Reference Range Interpretation [...] MOREINFORMATION , SEE CLIENT ANNOUNCE MENT AT [email or web address] /CalcLDL-C RISK RATIO LDL/HDL 1.57 RATIO <3.22 (test code = 2238) LACTIC ACID [id number] 10:18:00 Test Item Value Reference Range Interpretation Comments LACTIC ACID POC Test not performed 0.36-1.25 Previo usly reported (test code = mmol/L result: 3.35 LACTP) mmol/LEdited by : LINDA on 06/18/20:1017~~ Corrected Repor t ~~Reason (required):CART RIDG E ERROR PER FAL ON- TEST REPEATED W ITH NEW COLLECTION AND CARDTRIDGE [id number] 06:57:00 Test Item Value Reference Range Interpretation Comments POTASSIUM (test code = K) 3.0 MMOL/L 3.6-5.2 L [id number] 06:42:00 Test Item Value Reference Range Interpretation Comments MAGNESIUM (test code = MAG) 2.2 mg/dL 1.7-2.8 N LACTIC [id number] 06:24:00 Test Item Value Reference Range Interpretation Comments LACTIC ACID (test code = LACT) 0.80 mmol/L 0.5-2.2 N [id number] 21:26:00 Test Item Value Reference Range Interpretation Comments MAGNESIUM (test code = MAG) 1.4 mg/dL 1.7-2.8 L URINALYSIS DIPSTICK [id number] 19:39:00 Test Item Value Reference Range Interpretation [...] NEGATIVE (test code = LEUU) LACTIC ACID [id number] 18:38:00 Test Item Value Reference Range Interpretation Comments LACTIC ACID POC (test code = 2.44 mmol/L 0.36-1.25 H LACTP) LACTIC ACID [id number] 18:02:00 Test Item Value Reference Range Interpretation Comments LACTIC ACID POC (test code = 3.35 mmol/L 0.36-1.25 H LACTP) - CT ABD PELVIS W/O [id number] 17:22:00 [facility] : 1975 Sex: FPatientName: TARUN WATSON Unit No: [id number] EXAMS: CPT: [id number] CT ABD PELVIS W/O CONT [address]50 CT ABDOMEN AND PELVIS WITHOUT CONTRAST Comparison: [...] NO: N/A Name: TARUN WATSON FSED Phys: Juan Sanderson XXXX FM 1488 : 1975 Age: 44 Sex: [place] [address] [facility] Exam Date: 06/17/2020 Status: PRE ER PH: FAX: PAGE 1 Signed ReportDRUGS OF ABUSE SCREEN [id number] 17:03:00 Test Item Value Reference Range Interpretation [...] code = MDMA) NEGATIVE NEGATIVE URINALYSIS DIPSTICK [id number] 16:58:00 Test Item Value Reference Range Interpretation [...] code = LEUU) - XR CHEST 2 [id number] 16:49:00 [facility]UN WATSON : 1975 Sex: FPatientName: TARUN WATSON Unit No: [id number] EXAMS: CPT: [id number] XR CHEST 2 V 36397 COMPARISON: None.CHEST RADIOGRAPHS -FRONTAL AND LATERAL VIEWS. INDICATION: Shortness of breath. FINDINGS: The lungs are clear. No consolidation or effusion is seen. The hilar regions and pulmonary vasculature are unremarkable. Cardiac silhouette is normal. IMPRESSION: No acute lung disease. at 1649 Reported and signed by: Mykel Williamson MD CC: Juan Maya DO Technologist: Marleny Herrera Trscr Dt/Tm: 06/17/2020 (1648) by:[email or web address] Orig Print D/T: S: 06/17/2020 (913) BATCH NO: N/A Name: TARUN WATSON FSED Phys: BARDE - Apolinarasis,Juan Hernandez D [facility] : 1975 Age: 44 Sex: [place] [address] Loc: T[facility] Exam Date: 06/17/2020 Status: PRE ER PH: FAX: PAGE 1 Signed Report [id number] 16:46:00 Test Item Value Reference Range Interpretation Comments AMYLASE (test code = CHRIS) 78 U/L 14-97 N COMPREHENSIVE METABOLIC [id number] 16:26:00 Test Item Value Reference Range Interpretation [...] = IU/L 42-141 N ALKP) COMPREHENSIVE METABOLIC [id number] 16:26:00 Test Item Value Reference Range Interpretation [...] 75 IU/L 42-141 N ALKP) CBC W/AUTO [id number] 16:21:00 Test Item Value Reference Range Interpretation [...] = BA#) 0.08 K/mm3 0.0-0.1 N SARS-COV2/RT-PCR ([facility])2020-02-21 14:06:00 Test Item Value Reference Range Interpretation Comments SARS-COV2/RT-PCR (test Negative Not Detected, Negative, code = 4733067) See external report for linked test SARS-COV-[address] [facility] (test code = 7455506) Negative result for this test determines that [...] of the Act.Fact Sheet for Healthcare Prov iders:https://www.[employer]/sites/default/files/product/documents/Fact_Sheet_HC _Ltgncsqsp_Xjek_GRRR-PvH-4.pdfFact Sheet for Healthcare Patients:https://www.[employer]/sites/default/files/product/docume nts/Ivtz_Pjquu_Vjdmiyxe_Qwnm_RUXG-GrU-3.pdfPerforming Laboratory:[place] [address], [place] [address]YXDYK AND [id number] 17:42:00 Test Item Value Reference Range Interpretation Comments UA Color (test code = Yellow *NA*(04/07/19 UA Color) 12:42 PM) [facility] AND [id number] 17:42:00 Test Item Value Reference Range Interpretation Comments UA Turbidity (test code = Clear (04/07/19 12:42 UA Turbidity) PM) [facility] AND [id number] 17:42:00 Test Item Value Reference Range Interpretation Comments UA Spec Grav (test code = UA Spec 1.010 1 Grav) [facility] AND [id number] 17:42:00 Test Item Value Reference Range Interpretation Comments UA pH (test code = UA pH) 6.0 1 5.0-8.0 [facility] AND [id number] 17:42:00 Test Item Value Reference Range Interpretation Comments UA Protein (test code = UA Negative mg/dL Protein) [facility] AND [id number] 17:42:00 Test Item Value Reference Range Interpretation Comments UA Glucose (test code = UA Negative mg/dL Glucose) [facility] AND [id number] 17:42:00 Test Item Value Reference Range Interpretation Comments UA Ketones (test code = UA Negative mg/dL Ketones) [facility] AND [id number] 17:42:00 Test Item Value Reference Range Interpretation Comments UA Bili (test code = Negative *NA*(04/07/19 UA Bili) 12:42 PM) [facility] AND [id number] 17:42:00 Test Item Value Reference Range Interpretation Comments UA Blood (test code = Negative (04/07/19 12:42 UA Blood) PM) [facility] AND [id number] 17:42:00 Test Item Value Reference Range Interpretation Comments UA Nitrite (test code Negative (04/07/19 12:42 = UA Nitrite) PM) [facility] AND [id number] 17:42:00 Test Item Value Reference Range Interpretation Comments UA Leuk Est (test Negative (04/07/19 12:42 code = UA Leuk Est) PM) [facility] AND [id number] 17:42:00 Test Item Value Reference Range Interpretation Comments UA Sq Epi (test code = UA Sq Occasional /LPF Epi) [facility] AND [id number] 17:42:00 Test Item Value Reference Range Interpretation Comments UA WBC (test code = 1 See_Comment [Automa burke message] The UA WBC) system which ge nerated this result transmit burke reference range : <=5. The reference range was not used to interpr et this result as marleny l/abnormal. [facility] AND [id number] 17:42:00 Test Item Value Reference Range Interpretation Comments UA Bacteria (test code = UA Occasional /HPF Bacteria) [facility] AND [id number] 17:42:00 Test Item Value Reference Range Interpretation Comments UA Color (test code = Yellow *NA*(04/07/19 UA Color) 12:42 PM) [facility] AND [id number] 17:42:00 Test Item Value Reference Range Interpretation Comments UA Turbidity (test code = Clear (04/07/19 12:42 UA Turbidity) PM) [facility] AND [id number] 17:42:00 Test Item Value Reference Range Interpretation Comments UA Spec Grav (test code = UA Spec 1.010 1 Grav) [facility] AND [id number] 17:42:00 Test Item Value Reference Range Interpretation Comments UA pH (test code = UA pH) 6.0 1 5.0-8.0 [facility] AND [id number] 17:42:00 Test Item Value Reference Range Interpretation Comments UA Protein (test code = UA Negative mg/dL Protein) [facility] AND [id number] 17:42:00 Test Item Value Reference Range Interpretation Comments UA Glucose (test code = UA Negative mg/dL Glucose) [facility] AND [id number] 17:42:00 Test Item Value Reference Range Interpretation Comments UA Ketones (test code = UA Negative mg/dL Ketones) [facility] AND [id number] 17:42:00 Test Item Value Reference Range Interpretation Comments UA Bili (test code = Negative *NA*(04/07/19 UA Bili) 12:42 PM) [facility] AND [id number] 17:42:00 Test Item Value Reference Range Interpretation Comments UA Blood (test code = Negative (04/07/19 12:42 UA Blood) PM) [facility] AND [id number] 17:42:00 Test Item Value Reference Range Interpretation Comments UA Nitrite (test code Negative (04/07/19 12:42 = UA Nitrite) PM) [facility] AND [id number] 17:42:00 Test Item Value Reference Range Interpretation Comments UA Mucus (test code = UA Mucus) Few /LPF [facility] AND [id number] 17:42:00 Test Item Value Reference Range Interpretation Comments UA Leuk Est (test Negative (04/07/19 12:42 code = UA Leuk Est) PM) [facility] AND [id number] 17:42:00 Test Item Value Reference Range Interpretation Comments UA Sq Epi (test code = UA Sq Occasional /LPF Epi) [facility] AND [id number] 17:42:00 Test Item Value Reference Range Interpretation Comments UA WBC (test code = 1 See_Comment [Automa burke message] The UA WBC) system which ge nerated this result transmit burke reference range : <=5. The reference range was not used to interpr et this result as marleny l/abnormal. [facility] AND [id number] 17:42:00 Test Item Value Reference Range Interpretation Comments UA Bacteria (test code = UA Occasional /HPF Bacteria) [facility] AND [id number] 17:42:00 Test Item Value Reference Range Interpretation Comments UA Mucus (test code = UA Mucus) Few /LPF [facility] AND [id number] 17:42:00 Test Item Value Reference Range Interpretation Comments UA Urobilinogen (test code = UA <=1.0 mg/dL 0.1-1.0 Urobilinogen) [facility] AND [id number] 17:42:00 Test Item Value Reference Range Interpretation Comments UA Urobilinogen (test code = UA <=1.0 mg/dL 0.1-1.0 Urobilinogen) [facility]2019-09-14 08:47:00 Test Item Value Reference Range Interpretation Comments Phosphorus (test code = Phosphorus) 2.5 2.5-4.5 [facility]2019-09-14 08:47:00 Test Item Value Reference Range Interpretation Comments Glucose Lvl (test code = Glucose Lvl) 87 70-99 [facility]2019-09-14 08:47:00 Test Item Value Reference Range Interpretation Comments BUN (test code = BUN) 5 7-22 [facility]2019-09-14 08:47:00 Test Item Value Reference Range Interpretation Comments Creatinine Lvl (test code = Creatinine 0.37 0.50-1.40 Lvl) [facility]2019-09-14 08:47:00 Test Item Value Reference Range Interpretation Comments Sodium Lvl (test code = Sodium Lvl) 142 135-145 [facility]2019-09-14 08:47:00 Test Item Value Reference Range Interpretation Comments Potassium Lvl (test code = Potassium 3.4 3.5-5.1 Lvl) [facility]2019-09-14 08:47:00 Test Item Value Reference Range Interpretation Comments Chloride Lvl (test code = Chloride Lvl) 103 95-109 [facility]2019-09-14 08:47:00 Test Item Value Reference Range Interpretation Comments CO2 (test code = CO2) 33 24-32 [facility]2019-09-14 08:47:00 Test Item Value Reference Range Interpretation Comments AGAP (test code = AGAP) 9.4 10.0-20.0 [facility]2019-09-14 08:47:00 Test Item Value Reference Range Interpretation Comments Calcium Lvl (test code = Calcium Lvl) 8.9 8.5-10.5 [facility]2019-09-14 08:47:00 Test Item Value Reference Range Interpretation Comments eGFR (test code = eGFR) 130 [facility]2019-09-14 08:47:00 Test Item Value Reference Range Interpretation Comments Magnesium Lvl (test code = Magnesium 1.7 1.8-2.4 Lvl) [facility]2019-09-14 08:47:00 Test Item Value Reference Range Interpretation Comments Phosphorus (test code = Phosphorus) 2.5 2.5-4.5 [facility]2019-09-14 08:47:00 Test Item Value Reference Range Interpretation Comments Glucose Lvl (test code = Glucose Lvl) 87 70-99 [facility]2019-09-14 08:47:00 Test Item Value Reference Range Interpretation Comments BUN (test code = BUN) 5 7-22 [facility]2019-09-14 08:47:00 Test Item Value Reference Range Interpretation Comments Creatinine Lvl (test code = Creatinine 0.37 0.50-1.40 Lvl) [facility]2019-09-14 08:47:00 Test Item Value Reference Range Interpretation Comments Sodium Lvl (test code = Sodium Lvl) 142 135-145 [facility]2019-09-14 08:47:00 Test Item Value Reference Range Interpretation Comments Potassium Lvl (test code = Potassium 3.4 3.5-5.1 Lvl) [facility]2019-09-14 08:47:00 Test Item Value Reference Range Interpretation Comments Chloride Lvl (test code = Chloride Lvl) 103 95-109 [facility]2019-09-14 08:47:00 Test Item Value Reference Range Interpretation Comments CO2 (test code = CO2) 33 24-32 [facility]2019-09-14 08:47:00 Test Item Value Reference Range Interpretation Comments AGAP (test code = AGAP) 9.4 10.0-20.0 [place] 927309-09-14 08:47:00 Test Item Value Reference Range Interpretation Comments Calcium Lvl (test code = Calcium Lvl) 8.9 8.5-10.5 [facility]2019-09-14 08:47:00 Test Item Value Reference Range Interpretation Comments eGFR (test code = eGFR) 130 [facility]2019-09-14 08:47:00 Test Item Value Reference Range Interpretation Comments Magnesium Lvl (test code = Magnesium 1.7 1.8-2.4 Lvl) [facility]2019-09-13 23:56:00 Test Item Value Reference Range Interpretation Comments Phosphorus (test code = Phosphorus) 3.0 2.5-4.5 [facility] 23:56:00 Test Item Value Reference Range Interpretation Comments Potassium Lvl (test code = Potassium 3.9 3.5-5.1 Lvl) [facility]2019-09-13 23:56:00 Test Item Value Reference Range Interpretation Comments Phosphorus (test code = Phosphorus) 3.0 2.5-4.5 [facility]ktybpvYGMCAHIYMALB5709-43-41 23:56:00 Test Item Value Reference Range Interpretation Comments Potassium Lvl (test code = Potassium 3.9 3.5-5.1 Lvl) [facility]CPPJM0823[facility]71-69 13:46:00 Test Item Value Reference Range Interpretation Comments Segs (test code = Segs) 55.6 45.0-75.0 [facility] HospitalVxzeuuiPFDXVSBHAL2895-44-71 13:46:00 Test Item Value Reference Range Interpretation Comments Lymphocytes (test code = Lymphocytes) 34.1 20.0-40.0 [facility] HospitalFbdxyznWCUCLCVMET9787-62-22 13:46:00 Test Item Value Reference Range Interpretation Comments Monocytes (test code = Monocytes) 7.2 2.0-12.0 [facility] HospitalDjlzowaNMDHOTHYLD6967-93-45 13:46:00 Test Item Value Reference Range Interpretation Comments Eosinophils (test code = 2.3 See_Comment [A utomated message] The Eosinophils) system which ge nerated this result tra nsmitted reference range : <=4.0. The reference r felicity was not used to int erpret this result as normal/abnormal . [facility] HospitalJxcosxqSPBHAUDJXR2032-57-46 13:46:00 Test Item Value Reference Range Interpretation Comments Basophils (test code = 0.8 See_Comment [Aut omated message] The Basophils) system which ge nerated this result tra nsmitted reference range : <=1.0. The reference r felicity was not used to int erpret this result as normal/abnormal . [facility] HospitalOzkthdsOBATMYAKZQ6734-58-70 13:46:00 Test Item Value Reference Range Interpretation Comments Neutrophils # (test code = Neutrophils 2.7 1.5-8.1 #) [facility] HospitalQiiakhkBSKXFAUXLC6761-94-05 13:46:00 Test Item Value Reference Range Interpretation Comments Lymphocytes # (test code = Lymphocytes 1.7 1.0-5.5 #) [facility] HospitalKqbadfqGBHSJKLWNL8786-22-55 13:46:00 Test Item Value Reference Range Interpretation Comments Monocytes # (test code 0.4 See_Comment [Aut omated message] The = Monocytes #) system which generated this result tra nsmitted reference range : <=0.8. The reference r felicity was not used to int erpret this result as normal/abnormal . [facility] HospitalHjghtdlNWTIOWWXLE8686-92-37 13:46:00 Test Item Value Reference Range Interpretation Comments Eosinophils # (test code 0.1 See_Comment [A utomated message] The = Eosinophils #) system ic h generated this result tra nsmitted reference range : <=0.5. The reference r felicity was not used to int erpret this result as normal/abnormal . [facility]2019-09-13 13:46:00 Test Item Value Reference Range Interpretation Comments Glucose Lvl (test code = Glucose Lvl) 114 70-99 [facility]2019-09-13 13:46:00 Test Item Value Reference Range Interpretation Comments BUN (test code = BUN) 5 7-22 [facility]2019-09-13 13:46:00 Test Item Value Reference Range Interpretation Comments Creatinine Lvl (test code = Creatinine 0.58 0.50-1.40 Lvl) [place] 927309-09-13 13:46:00 Test Item Value Reference Range Interpretation Comments Sodium Lvl (test code = Sodium Lvl) 140 135-145 [facility]2019-09-13 13:46:00 Test Item Value Reference Range Interpretation Comments Potassium Lvl (test code = Potassium 2.7 3.5-5.1 Lvl) [facility]2019-09-13 13:46:00 Test Item Value Reference Range Interpretation Comments Chloride Lvl (test code = Chloride Lvl) 101 95-109 [facility]2019-09-13 13:46:00 Test Item Value Reference Range Interpretation Comments CO2 (test code = CO2) 25 24-32 [facility]2019-09-13 13:46:00 Test Item Value Reference Range Interpretation Comments AGAP (test code = AGAP) 16.7 10.0-20.0 [facility]2019-09-13 13:46:00 Test Item Value Reference Range Interpretation Comments Calcium Lvl (test code = Calcium Lvl) 9.4 8.5-10.5 [facility]2019-09-13 13:46:00 Test Item Value Reference Range Interpretation Comments B/C Ratio (test code = B/C Ratio) 9 1 6-25 [facility]2019-09-13 13:46:00 Test Item Value Reference Range Interpretation Comments Total Protein (test code = Total 7.0 6.4-8.4 Protein) [facility]2019-09-13 13:46:00 Test Item Value Reference Range Interpretation Comments Total Protein (test code = Total 7.0 6.4-8.4 Protein) [facility]2019-09-13 13:46:00 Test Item Value Reference Range Interpretation Comments Albumin Lvl (test code = Albumin Lvl) 3.0 3.5-5.0 [facility]2019-09-13 13:46:00 Test Item Value Reference Range Interpretation Comments Globulin (test code = Globulin) 4.0 2.7-4.2 [facility]2019-09-13 13:46:00 Test Item Value Reference Range Interpretation Comments A/G Ratio (test code = A/G Ratio) 0.8 1 0.7-1.6 [place] 927309-09-13 13:46:00 Test Item Value Reference Range Interpretation Comments ALT (test code = ALT) 40 See_Comment [Auto mated message] The system which ge nerated this result transmit burke reference range : <=65. The reference range was not used to interpr et this result as marleny l/abnormal. [place] 927309-09-13 13:46:00 Test Item Value Reference Range Interpretation Comments AST (test code = AST) 91 See_Comment [Auto mated message] The system which ge nerated this result transmit burke reference range : <=37. The reference range was not used to interpr et this result as marleny l/abnormal. [place] 927309-09-13 13:46:00 Test Item Value Reference Range Interpretation Comments Alk Phos (test code = Alk Phos) 83 39-136 [place] 927309-09-13 13:46:00 Test Item Value Reference Range Interpretation Comments Bili Total (test code = Bili Total) 0.4 0.2-1.3 [place] 927309-09-13 13:46:00 Test Item Value Reference Range Interpretation Comments eGFR (test code = eGFR) 112 [place] 927309-09-13 13:46:00 Test Item Value Reference Range Interpretation Comments Magnesium Lvl (test code = Magnesium 1.4 1.8-2.4 Lvl) [place] 927309-09-13 13:46:00 Test Item Value Reference Range Interpretation Comments Phosphorus (test code = Phosphorus) 0.7 2.5-4.5 [place] 437099-09-13 13:46:00 Test Item Value Reference Range Interpretation Comments WBC (test code = WBC) 4.9 3.7-10.4 [place] [address]-09-13 13:46:00 Test Item Value Reference Range Interpretation Comments RBC (test code = RBC) 3.86 4.20-5.40 [place] 437099-09-13 13:46:00 Test Item Value Reference Range Interpretation Comments Hgb (test code = Hgb) 10.7 12.0-16.0 [place] [address]-09-13 13:46:00 Test Item Value Reference Range Interpretation Comments Hct (test code = Hct) 32.6 36.0-48.0 [facility] HospitalPzyskllDJCWSEEXEA0281-38-22 13:46:00 Test Item Value Reference Range Interpretation Comments MCV (test code = MCV) 84.5 80.0-98.0 [facility] HospitalVtnquaaIEZMGZXPRS2833-06-73 13:46:00 Test Item Value Reference Range Interpretation Comments MCH (test code = MCH) 27.8 pg 27.0-31.0 [facility] HospitalWrapezaPBBHTASYWI4581-73-80 13:46:00 Test Item Value Reference Range Interpretation Comments MCHC (test code = MCHC) 32.9 32.0-36.0 [facility] HospitalSbzllqbNPGSVUQAVL4050-97-38 13:46:00 Test Item Value Reference Range Interpretation Comments RDW (test code = RDW) 22.5 11.5-14.5 [facility] HospitalQlndermGXKUMKIDDI0523-41-41 13:46:00 Test Item Value Reference Range Interpretation Comments Platelet (test code = Platelet) 113 133-450 [facility] HospitalJzqssjyYTFYJHQWQC8858-19-99 13:46:00 Test Item Value Reference Range Interpretation Comments MPV (test code = MPV) 10.4 7.4-10.4 [facility] HospitalPcnfnyiEEIZTTYJPY7075-47-40 13:46:00 Test Item Value Reference Range Interpretation Comments Segs (test code = Segs) 55.6 45.0-75.0 [facility] HospitalCfcwofqPBLAUEQFRY8479-11-86 13:46:00 Test Item Value Reference Range Interpretation Comments Lymphocytes (test code = Lymphocytes) 34.1 20.0-40.0 [facility] HospitalAgrrzcrCWHVCDUEND5269-11-91 13:46:00 Test Item Value Reference Range Interpretation Comments Monocytes (test code = Monocytes) 7.2 2.0-12.0 [facility] HospitalNumlddhOTERPWJKUJ9235-85-83 13:46:00 Test Item Value Reference Range Interpretation Comments Eosinophils (test code = 2.3 See_Comment [A utomated message] The Eosinophils) system which ge nerated this result tra nsmitted reference range : <=4.0. The reference r felicity was not used to int erpret this result as normal/abnormal . [facility] HospitalJfjjrfrWKPANXWZIW4698-04-54 13:46:00 Test Item Value Reference Range Interpretation Comments Basophils (test code = 0.8 See_Comment [Aut omated message] The Basophils) system which ge nerated this result tra nsmitted reference range : <=1.0. The reference r felicity was not used to int erpret this result as normal/abnormal . [facility] HospitalSseccqxYFVTEHAOIT4483-12-22 13:46:00 Test Item Value Reference Range Interpretation Comments Neutrophils # (test code = Neutrophils 2.7 1.5-8.1 #) [facility] HospitalRtchjzvZFVUGUQSFE6138-59-92 13:46:00 Test Item Value Reference Range Interpretation Comments Lymphocytes # (test code = Lymphocytes 1.7 1.0-5.5 #) [facility] HospitalLyarivlHSIJKLXRDM8993-19-01 13:46:00 Test Item Value Reference Range Interpretation Comments Monocytes # (test code 0.4 See_Comment [Aut omated message] The = Monocytes #) system which generated this result tra nsmitted reference range : <=0.8. The reference r felicity was not used to int erpret this result as normal/abnormal . [facility] HospitalCfpwurxBPCHUORXFE2512-25-82 13:46:00 Test Item Value Reference Range Interpretation Comments Eosinophils # (test code 0.1 See_Comment [A utomated message] The = Eosinophils #) system whic h generated this result tra nsmitted reference range : <=0.5. The reference r felicity was not used to int erpret this result as normal/abnormal . [facility]2019-09-13 13:46:00 Test Item Value Reference Range Interpretation Comments Glucose Lvl (test code = Glucose Lvl) 114 70-99 [facility]2019-09-13 13:46:00 Test Item Value Reference Range Interpretation Comments BUN (test code = BUN) 5 7-22 [place] 927309-09-13 13:46:00 Test Item Value Reference Range Interpretation Comments Creatinine Lvl (test code = Creatinine 0.58 0.50-1.40 Lvl) [facility]2019-09-13 13:46:00 Test Item Value Reference Range Interpretation Comments Sodium Lvl (test code = Sodium Lvl) 140 135-145 [facility]2019-09-13 13:46:00 Test Item Value Reference Range Interpretation Comments Potassium Lvl (test code = Potassium 2.7 3.5-5.1 Lvl) [facility]2019-09-13 13:46:00 Test Item Value Reference Range Interpretation Comments Chloride Lvl (test code = Chloride Lvl) 101 95-109 [facility]2019-09-13 13:46:00 Test Item Value Reference Range Interpretation Comments CO2 (test code = CO2) 25 24-32 [facility]2019-09-13 13:46:00 Test Item Value Reference Range Interpretation Comments AGAP (test code = AGAP) 16.7 10.0-20.0 [facility]2019-09-13 13:46:00 Test Item Value Reference Range Interpretation Comments Calcium Lvl (test code = Calcium Lvl) 9.4 8.5-10.5 [facility]2019-09-13 13:46:00 Test Item Value Reference Range Interpretation Comments B/C Ratio (test code = B/C Ratio) 9 1 6-25 [facility]2019-09-13 13:46:00 Test Item Value Reference Range Interpretation Comments Albumin Lvl (test code = Albumin Lvl) 3.0 3.5-5.0 [facility]2019-09-13 13:46:00 Test Item Value Reference Range Interpretation Comments Globulin (test code = Globulin) 4.0 2.7-4.2 [facility]2019-09-13 13:46:00 Test Item Value Reference Range Interpretation Comments A/G Ratio (test code = A/G Ratio) 0.8 1 0.7-1.6 [facility]2019-09-13 13:46:00 Test Item Value Reference Range Interpretation Comments ALT (test code = ALT) 40 See_Comment [Auto mated message] The system which ge nerated this result transmit burke reference range : <=65. The reference range was not used to interpr et this result as marleny l/abnormal. [facility]2019-09-13 13:46:00 Test Item Value Reference Range Interpretation Comments AST (test code = AST) 91 See_Comment [Auto mated message] The system which ge nerated this result transmit burke reference range : <=37. The reference range was not used to interpr et this result as marleny l/abnormal. [facility]2019-09-13 13:46:00 Test Item Value Reference Range Interpretation Comments Alk Phos (test code = Alk Phos) 83 39-136 [facility]2019-09-13 13:46:00 Test Item Value Reference Range Interpretation Comments Bili Total (test code = Bili Total) 0.4 0.2-1.3 [facility]2019-09-13 13:46:00 Test Item Value Reference Range Interpretation Comments eGFR (test code = eGFR) 112 [facility]2019-09-13 13:46:00 Test Item Value Reference Range Interpretation Comments Magnesium Lvl (test code = Magnesium 1.4 1.8-2.4 Lvl) [facility]2019-09-13 13:46:00 Test Item Value Reference Range Interpretation Comments Phosphorus (test code = Phosphorus) 0.7 2.5-4.5 [facility] HospitalVvzchebIZBSZOECFN4174-72-66 13:46:00 Test Item Value Reference Range Interpretation Comments WBC (test code = WBC) 4.9 3.7-10.4 [place] 437099-09-13 13:46:00 Test Item Value Reference Range Interpretation Comments RBC (test code = RBC) 3.86 4.20-5.40 [place] 437099-09-13 13:46:00 Test Item Value Reference Range Interpretation Comments Hgb (test code = Hgb) 10.7 12.0-16.0 [place] 437099-09-13 13:46:00 Test Item Value Reference Range Interpretation Comments Hct (test code = Hct) 32.6 36.0-48.0 [place] 437099-09-13 13:46:00 Test Item Value Reference Range Interpretation Comments MCV (test code = MCV) 84.5 80.0-98.0 [place] 437099-09-13 13:46:00 Test Item Value Reference Range Interpretation Comments MCH (test code = MCH) 27.8 pg 27.0-31.0 [facility] HospitalEtpjqqxNVTOMWAJWR7743-09-46 13:46:00 Test Item Value Reference Range Interpretation Comments MCHC (test code = MCHC) 32.9 32.0-36.0 [facility] HospitalQldabtuKXDTHFKSZV5060-93-43 13:46:00 Test Item Value Reference Range Interpretation Comments RDW (test code = RDW) 22.5 11.5-14.5 [facility] HospitalVrbzzynGVOGMEWIHH4338-28-10 13:46:00 Test Item Value Reference Range Interpretation Comments Platelet (test code = Platelet) 113 133-450 [facility]XkmcubvRYTLJLCWHI8420-46-38 13:46:00 Test Item Value Reference Range Interpretation Comments MPV (test code = MPV) 10.4 7.4-10.4 [facility]CARDIAC WBSPLPA6424-23-09 11:47:00 Test Item Value Reference Range Interpretation Comments Troponin-I (test code no gt See_Comment [Auto mated message] The = Troponin-I) system which g enerated this result transmit burke reference range : <=0.40. The reference r felicity was not used to interpr et this result as marleny l/abnormal. [facility]2019-09-11 11:47:00 Test Item Value Reference Range Interpretation Comments Magnesium Lvl (test code = Magnesium 1.7 1.8-2.4 Lvl) [facility]2019-09-11 11:47:00 Test Item Value Reference Range Interpretation Comments Glucose Lvl (test code = Glucose Lvl) 83 70-99 [facility]2019-09-11 11:47:00 Test Item Value Reference Range Interpretation Comments BUN (test code = BUN) 3 7-22 [facility]2019-09-11 11:47:00 Test Item Value Reference Range Interpretation Comments Creatinine Lvl (test code = Creatinine 0.52 0.50-1.40 Lvl) [facility]2019-09-11 11:47:00 Test Item Value Reference Range Interpretation Comments Sodium Lvl (test code = Sodium Lvl) 135 135-145 [facility]2019-09-11 11:47:00 Test Item Value Reference Range Interpretation Comments Chloride Lvl (test code = Chloride Lvl) 99 95-109 [facility]2019-09-11 11:47:00 Test Item Value Reference Range Interpretation Comments CO2 (test code = CO2) 24 24-32 [facility]2019-09-11 11:47:00 Test Item Value Reference Range Interpretation Comments Calcium Lvl (test code = Calcium Lvl) 9.5 8.5-10.5 [facility]2019-09-11 11:47:00 Test Item Value Reference Range Interpretation Comments eGFR (test code = eGFR) 117 [facility]2019-09-11 11:47:00 Test Item Value Reference Range Interpretation Comments AGAP (test code = AGAP) 15.1 10.0-20.0 [facility] HospitalRnpstgrFBAVKFDCCV8494-01-50 11:47:00 Test Item Value Reference Range Interpretation Comments Plt Morph (test code = Normal (04/04/19 6:47 Plt Morph) AM) [facility] HospitalTyyvcaeWWXDQTMXRW8533-68-64 11:47:00 Test Item Value Reference Range Interpretation Comments Segs (test code = Segs) 62.5 45.0-75.0 [facility] HospitalLprbnvyRNWBZWKOFY6358-16-72 11:47:00 Test Item Value Reference Range Interpretation Comments Lymphocytes (test code = Lymphocytes) 25.6 20.0-40.0 [facility] HospitalBvicxhlGSPGMLSANN0174-78-19 11:47:00 Test Item Value Reference Range Interpretation Comments Monocytes (test code = Monocytes) 10.3 2.0-12.0 [facility] HospitalGqafggdXGSXXGGOWU3018-97-46 11:47:00 Test Item Value Reference Range Interpretation Comments Eosinophils (test code = 1.2 See_Comment [A utomated message] The Eosinophils) system which ge nerated this result tra nsmitted reference range : <=4.0. The reference r felicity was not used to int erpret this result as normal/abnormal . [facility] HospitalDsbclwtLOCZJJXFPX7907-43-28 11:47:00 Test Item Value Reference Range Interpretation Comments Basophils (test code = 0.4 See_Comment [Aut omated message] The Basophils) system which ge nerated this result tra nsmitted reference range : <=1.0. The reference r felicity was not used to int erpret this result as normal/abnormal . [facility] HospitalTlgevtfGCJVDYUDXY2984-31-41 11:47:00 Test Item Value Reference Range Interpretation Comments Neutrophils # (test code = Neutrophils 2.9 1.5-8.1 #) [facility] HospitalDcwtvjxTWHCVVLDYD0276-42-99 11:47:00 Test Item Value Reference Range Interpretation Comments Lymphocytes # (test code = Lymphocytes 1.2 1.0-5.5 #) [facility] HospitalQrhhvmmDAQGDWRAVB4865-62-18 11:47:00 Test Item Value Reference Range Interpretation Comments Monocytes # (test code 0.5 See_Comment [Aut omated message] The = Monocytes #) system which generated this result tra nsmitted reference range : <=0.8. The reference r felicity was not used to int erpret this result as normal/abnormal . [facility] HospitalKvjsjujUKQKXAATEN9239-56-81 11:47:00 Test Item Value Reference Range Interpretation Comments Eosinophils # (test code 0.1 See_Comment [A utomated message] The = Eosinophils #) system whic h generated this result tra nsmitted reference range : <=0.5. The reference r felicity was not used to int erpret this result as normal/abnormal . [facility] HospitalTcxegqgSHDUDZFLRL0196-83-57 11:47:00 Test Item Value Reference Range Interpretation Comments Anisocyte (test code = 1+ *ABN*(04/04/19 Anisocyte) 6:47 AM) [facility] HospitalYxnxislANKDQTIVYU6217-91-46 11:47:00 Test Item Value Reference Range Interpretation Comments Macrocyte (test code = 1+ *ABN*(04/04/19 Macrocyte) 6:47 AM) [facility] HospitalTdovphvDKKKDUCXBF3077-02-80 11:47:00 Test Item Value Reference Range Interpretation Comments Microcyte (test code = 1+ *ABN*(04/04/19 Microcyte) 6:47 AM) [facility] HospitalRouvsmsIDFEOSYUIR5920-17-49 11:47:00 Test Item Value Reference Range Interpretation Comments Spherocyte (test code = Rare *ABN*(04/04/19 Spherocyte) 6:47 AM) [facility] HospitalChlweihUZUUZGBEIN9057-43-14 11:47:00 Test Item Value Reference Range Interpretation Comments WBC (test code = WBC) 4.6 3.7-10.4 [facility] HospitalKacqgqbPUPLUMOABC8389-20-12 11:47:00 Test Item Value Reference Range Interpretation Comments RBC (test code = RBC) 3.94 4.20-5.40 [facility] HospitalMlxitpyLVSWVMEROL1762-18-04 11:47:00 Test Item Value Reference Range Interpretation Comments Hgb (test code = Hgb) 10.9 12.0-16.0 [facility] HospitalGjeehmpIDDWMNMZEE9364-55-61 11:47:00 Test Item Value Reference Range Interpretation Comments Hct (test code = Hct) 33.5 36.0-48.0 [facility] HospitalOpcosztTYAOVFVAIX2450-77-45 11:47:00 Test Item Value Reference Range Interpretation Comments MCV (test code = MCV) 85.0 80.0-98.0 [facility]KB[facility]BFP8694-61-01 11:47:00 Test Item Value Reference Range Interpretation Comments MCH (test code = MCH) 27.7 pg 27.0-31.0 [facility]QisknehUBQGZIMOEV4617-92-58 11:47:00 Test Item Value Reference Range Interpretation Comments MCHC (test code = MCHC) 32.6 32.0-36.0 [facility] HospitalWkpdmveRIYIQEXGTI0730-12-18 11:47:00 Test Item Value Reference Range Interpretation Comments RDW (test code = RDW) 22.8 11.5-14.5 [facility] CenterYpjdvlnGQOBTQKSXL7460-45-65 11:47:00 Test Item Value Reference Range Interpretation Comments Platelet (test code = Platelet) 108 133-450 [facility]WsvfjetISWADKMTPN2660-74-50 11:47:00 Test Item Value Reference Range Interpretation Comments MPV (test code = MPV) 8.1 7.4-10.4 [facility]CARDIAC LKSQQKM2546-05-08 11:47:00 Test Item Value Reference Range Interpretation Comments Troponin-I (test code no gt See_Comment [Auto mated message] The = Troponin-I) system which g enerated this result transmit burke reference range : <=0.40. The reference r felicity was not used to interpr et this result as marleny l/abnormal. [facility]2019-09-11 11:47:00 Test Item Value Reference Range Interpretation Comments Magnesium Lvl (test code = Magnesium 1.7 1.8-2.4 Lvl) [facility]2019-09-11 11:47:00 Test Item Value Reference Range Interpretation Comments Glucose Lvl (test code = Glucose Lvl) 83 70-99 [facility]2019-09-11 11:47:00 Test Item Value Reference Range Interpretation Comments BUN (test code = BUN) 3 7-22 [facility]2019-09-11 11:47:00 Test Item Value Reference Range Interpretation Comments Creatinine Lvl (test code = Creatinine 0.52 0.50-1.40 Lvl) [facility]2019-09-11 11:47:00 Test Item Value Reference Range Interpretation Comments Sodium Lvl (test code = Sodium Lvl) 135 135-145 [facility]2019-09-11 11:47:00 Test Item Value Reference Range Interpretation Comments Chloride Lvl (test code = Chloride Lvl) 99 95-109 [facility]2019-09-11 11:47:00 Test Item Value Reference Range Interpretation Comments CO2 (test code = CO2) 24 24-32 [facility]2019-09-11 11:47:00 Test Item Value Reference Range Interpretation Comments Calcium Lvl (test code = Calcium Lvl) 9.5 8.5-10.5 [facility]2019-09-11 11:47:00 Test Item Value Reference Range Interpretation Comments eGFR (test code = eGFR) 117 [facility]2019-09-11 11:47:00 Test Item Value Reference Range Interpretation Comments AGAP (test code = AGAP) 15.1 10.0-20.0 [facility]oc[facility]kvUSFYUZPXHS4975-20-79 11:47:00 Test Item Value Reference Range Interpretation Comments Plt Morph (test code = Normal (04/04/19 6:47 Plt Morph) AM) [facility] HospitalLviywvjZSMDLZZBKX6141-84-90 11:47:00 Test Item Value Reference Range Interpretation Comments Segs (test code = Segs) 62.5 45.0-75.0 [facility] HospitalRnzjovmMSEVBVSPRF4115-18-53 11:47:00 Test Item Value Reference Range Interpretation Comments Lymphocytes (test code = Lymphocytes) 25.6 20.0-40.0 [facility] HospitalSollkxuSPIYNISFVZ6610-83-06 11:47:00 Test Item Value Reference Range Interpretation Comments Monocytes (test code = Monocytes) 10.3 2.0-12.0 [facility] HospitalGficcvcAHEXZXBIYQ0940-55-71 11:47:00 Test Item Value Reference Range Interpretation Comments Eosinophils (test code = 1.2 See_Comment [A utomated message] The Eosinophils) system which ge nerated this result tra nsmitted reference range : <=4.0. The reference r felicity was not used to int erpret this result as normal/abnormal . [facility] HospitalLizlcboIUUWRRSFBA2397-83-02 11:47:00 Test Item Value Reference Range Interpretation Comments Basophils (test code = 0.4 See_Comment [Aut omated message] The Basophils) system which ge nerated this result tra nsmitted reference range : <=1.0. The reference r felicity was not used to int erpret this result as normal/abnormal . [facility] HospitalHpglhkkGUPYWUAUVR7869-88-13 11:47:00 Test Item Value Reference Range Interpretation Comments Neutrophils # (test code = Neutrophils 2.9 1.5-8.1 #) [facility] HospitalEikmjfjSMOKNBFCMR7062-72-32 11:47:00 Test Item Value Reference Range Interpretation Comments Lymphocytes # (test code = Lymphocytes 1.2 1.0-5.5 #) [facility] HospitalPvxwbnpSHUURMEULK7617-98-26 11:47:00 Test Item Value Reference Range Interpretation Comments Monocytes # (test code 0.5 See_Comment [Aut omated message] The = Monocytes #) system which generated this result tra nsmitted reference range : <=0.8. The reference r felicity was not used to int erpret this result as normal/abnormal . [facility] HospitalPvlseojMTDPOWAGFC6933-06-99 11:47:00 Test Item Value Reference Range Interpretation Comments Eosinophils # (test code 0.1 See_Comment [A utomated message] The = Eosinophils #) system whic h generated this result tra nsmitted reference range : <=0.5. The reference r felicity was not used to int erpret this result as normal/abnormal . [facility] HospitalWxgqlafRFOSIWRGEQ9418-83-04 11:47:00 Test Item Value Reference Range Interpretation Comments Anisocyte (test code = 1+ *ABN*(04/04/19 Anisocyte) 6:47 AM) [facility] HospitalGutswoaJNJQMQCPOT1381-37-26 11:47:00 Test Item Value Reference Range Interpretation Comments Macrocyte (test code = 1+ *ABN*(04/04/19 Macrocyte) 6:47 AM) [facility] HospitalFyxeihkFDZERYDJPV5811-05-00 11:47:00 Test Item Value Reference Range Interpretation Comments Microcyte (test code = 1+ *ABN*(04/04/19 Microcyte) 6:47 AM) [facility] HospitalLuqdjsgIYRCDIWDOZ6691-75-10 11:47:00 Test Item Value Reference Range Interpretation Comments Spherocyte (test code = Rare *ABN*(04/04/19 Spherocyte) 6:47 AM) [facility] HospitalXpvyyfjFTFDRYZABR1155-15-69 11:47:00 Test Item Value Reference Range Interpretation Comments WBC (test code = WBC) 4.6 3.7-10.4 [facility] HospitalUfdmfmrQPMIFEPDPT7661-27-83 11:47:00 Test Item Value Reference Range Interpretation Comments RBC (test code = RBC) 3.94 4.20-5.40 [facility]TDCOEXAXBE0982[facility]-92 11:47:00 Test Item Value Reference Range Interpretation Comments Hgb (test code = Hgb) 10.9 12.0-16.0 [facility]NhdihvbMWNHYHHARO0215-77-15 11:47:00 Test Item Value Reference Range Interpretation Comments Hct (test code = Hct) 33.5 36.0-48.0 [facility]GwuyyddIFTICHPRIH7789-87-89 11:47:00 Test Item Value Reference Range Interpretation Comments MCV (test code = MCV) 85.0 80.0-98.0 [facility]LisvccjPXJPNAKBLX8276-90-65 11:47:00 Test Item Value Reference Range Interpretation Comments MCH (test code = MCH) 27.7 pg 27.0-31.0 [facility]EwughwrQSQKLPIOJC4263-15-62 11:47:00 Test Item Value Reference Range Interpretation Comments MCHC (test code = MCHC) 32.6 32.0-36.0 [facility] HospitalYppudlxWVXWWPGJIW8208-70-72 11:47:00 Test Item Value Reference Range Interpretation Comments RDW (test code = RDW) 22.8 11.5-14.5 [facility]ZozhdzkXDVUPNUQOH5882-42-73 11:47:00 Test Item Value Reference Range Interpretation Comments Platelet (test code = Platelet) 108 133-450 [facility]EgbdsclUXPOGJQPDG2326-77-25 11:47:00 Test Item Value Reference Range Interpretation Comments MPV (test code = MPV) 8.1 7.4-10.4 [facility] KRDRIOR2733-75-85 02:32:00 Test Item Value Reference Range Interpretation Comments Troponin-I (test code no gt See_Comment [Auto mated message] The = Troponin-I) system which g enerated this result transmit burke reference range : <=0.40. The reference r felicity was not used to interpr et this result as marleny l/abnormal. [facility] CenterMixP3 Inc[facility] [id number] 02:32:00 Test Item Value Reference Range Interpretation Comments B/C Ratio (test code = B/C Ratio) 4 1 6-25 [facility] [id number] 02:32:00 Test Item Value Reference Range Interpretation Comments Globulin (test code = Globulin) 4.2 2.7-4.2 [facility]2019-09-11 02:32:00 Test Item Value Reference Range Interpretation Comments A/G Ratio (test code = A/G Ratio) 0.9 1 0.7-1.6 [facility]2019-09-11 02:32:00 Test Item Value Reference Range Interpretation Comments Total Protein (test code = Total 7.9 6.4-8.4 Protein) [facility]2019-09-11 02:32:00 Test Item Value Reference Range Interpretation Comments Albumin Lvl (test code = Albumin Lvl) 3.7 3.5-5.0 [facility]2019-09-11 02:32:00 Test Item Value Reference Range Interpretation Comments ALT (test code = ALT) 38 See_Comment [Auto mated message] The system which ge nerated this result transmit burke reference range : <=65. The reference range was not used to interpr et this result as marleny l/abnormal. [facility]2019-09-11 02:32:00 Test Item Value Reference Range Interpretation Comments AST (test code = AST) 70 See_Comment [Auto mated message] The system which ge nerated this result transmit burke reference range : <=37. The reference range was not used to interpr et this result as marleny l/abnormal. [facility]2019-09-11 02:32:00 Test Item Value Reference Range Interpretation Comments Alk Phos (test code = Alk Phos) 104 39-136 [facility]2019-09-11 02:32:00 Test Item Value Reference Range Interpretation Comments Bili Total (test code = Bili Total) 2.0 0.2-1.3 [facility]2019-09-11 02:32:00 Test Item Value Reference Range Interpretation Comments Ketone Quantitative (test code = Ketone 3.41 Quantitative) [facility]2019-09-11 02:32:00 Test Item Value Reference Range Interpretation Comments Osmolality (test code = Osmolality) 278 280-300 [facility]2019-09-11 02:32:00 Test Item Value Reference Range Interpretation Comments Lactic Acid Lvl (test code = Lactic 1.0 0.5-2.2 Acid Lvl) [facility]SEJLMXCKV[facility]60[facility]-17 02:32:00 Test Item Value Reference Range Interpretation Comments WBC (test code = WBC) 7.6 3.7-10.4 [facility] HospitalEszeynoYKTRRVUMOB0281-66-53 02:32:00 Test Item Value Reference Range Interpretation Comments RBC (test code = RBC) 3.81 4.20-5.40 [facility] HospitalDggfryrSPBORZMHMX0917-12-34 02:32:00 Test Item Value Reference Range Interpretation Comments Hgb (test code = Hgb) 10.6 12.0-16.0 [facility] HospitalRhrdemrFFULEBNCUG2434-76-65 02:32:00 Test Item Value Reference Range Interpretation Comments Hct (test code = Hct) 32.5 36.0-48.0 [facility] HospitalGvshycdESMJGYYZVT8896-24-14 02:32:00 Test Item Value Reference Range Interpretation Comments MCV (test code = MCV) 85.5 80.0-98.0 [facility] HospitalGevndryORHSJWYVYH9600-15-27 02:32:00 Test Item Value Reference Range Interpretation Comments MCH (test code = MCH) 27.8 pg 27.0-31.0 [facility] HospitalCcbarsiUIRYJPWBEN7916-81-97 02:32:00 Test Item Value Reference Range Interpretation Comments MCHC (test code = MCHC) 32.6 32.0-36.0 [facility] HospitalYscievaBEOJPQTNZI8111-22-83 02:32:00 Test Item Value Reference Range Interpretation Comments RDW (test code = RDW) 22.2 11.5-14.5 [facility] HospitalIrohinxVCZLQHKVWZ5989-31-45 02:32:00 Test Item Value Reference Range Interpretation Comments Platelet (test code = Platelet) 104 133-450 [facility] HospitalKhuvdonLZOFDXPAPG2108-01-68 02:32:00 Test Item Value Reference Range Interpretation Comments MPV (test code = MPV) 8.3 7.4-10.4 [facility] HospitalEajwstoWNKLMPYVVN1710-90-96 02:32:00 Test Item Value Reference Range Interpretation Comments INR (test code = INR) 1.12 1 0.85-1.17 [facility] HospitalAeqvgtwVCKWKYTYFS8523-51-30 02:32:00 Test Item Value Reference Range Interpretation Comments PT (test code = PT) 14.2 s 12.0-14.7 [facility] HospitalCwonflpQGENTJNQPT1280-09-18 02:32:00 Test Item Value Reference Range Interpretation Comments PTT (test code = PTT) 27.6 s 22.9-35.8 [facility] HospitalEqueibkFHRHDOTFRW5163-00-72 02:32:00 Test Item Value Reference Range Interpretation Comments Plt Morph (test code = Normal (04/03/19 9:32 Plt Morph) PM) [facility] HospitalYgcbqcfTLSCPTSMLL8695-72-36 02:32:00 Test Item Value Reference Range Interpretation Comments Segs (test code = Segs) 72.4 45.0-75.0 [facility] HospitalEiryecuUGXHVRXZIO2969-59-04 02:32:00 Test Item Value Reference Range Interpretation Comments Lymphocytes (test code = Lymphocytes) 17.6 20.0-40.0 [facility] HospitalHxwmhvsVZDJCAWPYC0272-19-39 02:32:00 Test Item Value Reference Range Interpretation Comments Monocytes (test code = Monocytes) 9.7 2.0-12.0 [facility] HospitalJaeoqfdUDLZHCRLNB4189-42-73 02:32:00 Test Item Value Reference Range Interpretation Comments Eosinophils (test code = 0.1 See_Comment [A utomated message] The Eosinophils) system which ge nerated this result tra nsmitted reference range : <=4.0. The reference r felicity was not used to int erpret this result as normal/abnormal . [facility] HospitalTdytgmmOWANUNTDPF0345-53-89 02:32:00 Test Item Value Reference Range Interpretation Comments Basophils (test code = 0.2 See_Comment [Aut omated message] The Basophils) system which ge nerated this result tra nsmitted reference range : <=1.0. The reference r felicity was not used to int erpret this result as normal/abnormal . [facility] HospitalDpwzmqfQSYKPKXCVX3812-56-33 02:32:00 Test Item Value Reference Range Interpretation Comments Neutrophils # (test code = Neutrophils 5.5 1.5-8.1 #) [facility] HospitalXhjbsxkJFSMBLFAQO7292-11-57 02:32:00 Test Item Value Reference Range Interpretation Comments Lymphocytes # (test code = Lymphocytes 1.3 1.0-5.5 #) [facility] HospitalMgqkovnTXWFMIIJQV8666-30-46 02:32:00 Test Item Value Reference Range Interpretation Comments Monocytes # (test code 0.7 See_Comment [Aut omated message] The = Monocytes #) system which generated this result tra nsmitted reference range : <=0.8. The reference r felicity was not used to int erpret this result as normal/abnormal . [facility] CenterSevmrrnHJWZHNXADG2341-52-91 02:32:00 Test Item Value Reference Range Interpretation Comments Ethanol Lvl (test code = Ethanol Lvl) no gt [facility]JsuabsuYMORAUZGSC5438-45-75 02:32:00 Test Item Value Reference Range Interpretation Comments Etoh (%) (test code = Etoh (%)) no gt [facility] CenterCARDIAC [id number] 02:32:00 Test Item Value Reference Range Interpretation Comments Troponin-I (test code no gt See_Comment [Auto mated message] The = Troponin-I) system which g enerated this result transmit burke reference range : <=0.40. The reference r felicity was not used to interpr et this result as marleny l/abnormal. [facility] [id number] 02:32:00 Test Item Value Reference Range Interpretation Comments B/C Ratio (test code = B/C Ratio) 4 1 6-25 [facility] [id number] 02:32:00 Test Item Value Reference Range Interpretation Comments Globulin (test code = Globulin) 4.2 2.7-4.2 [facility] [id number] 02:32:00 Test Item Value Reference Range Interpretation Comments A/G Ratio (test code = A/G Ratio) 0.9 1 0.7-1.6 [facility] [id number] 02:32:00 Test Item Value Reference Range Interpretation Comments Total Protein (test code = Total 7.9 6.4-8.4 Protein) [facility] [id number] 02:32:00 Test Item Value Reference Range Interpretation Comments Albumin Lvl (test code = Albumin Lvl) 3.7 3.5-5.0 [facility] [id number] 02:32:00 Test Item Value Reference Range Interpretation Comments ALT (test code = ALT) 38 See_Comment [Auto mated message] The system which ge nerated this result transmit burke reference range : <=65. The reference range was not used to interpr et this result as marleny l/abnormal. [facility] Superproton[employer] FMMOJ3046-57-45 02:32:00 Test Item Value Reference Range Interpretation Comments AST (test code = AST) 70 See_Comment [Auto mated message] The system which ge nerated this result transmit burke reference range : <=37. The reference range was not used to interpr et this result as marleny l/abnormal. [facility]2019-09-11 02:32:00 Test Item Value Reference Range Interpretation Comments Alk Phos (test code = Alk Phos) 104 39-136 [facility]2019-09-11 02:32:00 Test Item Value Reference Range Interpretation Comments Bili Total (test code = Bili Total) 2.0 0.2-1.3 [facility]2019-09-11 02:32:00 Test Item Value Reference Range Interpretation Comments Ketone Quantitative (test code = Ketone 3.41 Quantitative) [facility]2019-09-11 02:32:00 Test Item Value Reference Range Interpretation Comments Osmolality (test code = Osmolality) 278 280-300 [facility]2019-09-11 02:32:00 Test Item Value Reference Range Interpretation Comments Lactic Acid Lvl (test code = Lactic 1.0 0.5-2.2 Acid Lvl) [facility] HospitalIosadnqXEPKIHGHDD4525-91-16 02:32:00 Test Item Value Reference Range Interpretation Comments WBC (test code = WBC) 7.6 3.7-10.4 [facility] HospitalTnhhzkaNZIKOTRHRV7494-86-54 02:32:00 Test Item Value Reference Range Interpretation Comments RBC (test code = RBC) 3.81 4.20-5.40 [facility] HospitalTrmrhmtKXSQABGTIT7712-48-93 02:32:00 Test Item Value Reference Range Interpretation Comments Hgb (test code = Hgb) 10.6 12.0-16.0 [facility] HospitalGiwqdtfUDOENTGIQP6644-62-41 02:32:00 Test Item Value Reference Range Interpretation Comments Hct (test code = Hct) 32.5 36.0-48.0 [facility] HospitalCkmkzsmISUOPHATTC1642-75-49 02:32:00 Test Item Value Reference Range Interpretation Comments MCV (test code = MCV) 85.5 80.0-98.0 [place] [id number] 02:32:00 Test Item Value Reference Range Interpretation Comments MCH (test code = MCH) 27.8 pg 27.0-31.0 [facility] HospitalIelvdfqAKRLEKTJMU9955-36-10 02:32:00 Test Item Value Reference Range Interpretation Comments MCHC (test code = MCHC) 32.6 32.0-36.0 [facility] HospitalTnlxqsgAFYIDCJRHI6115-53-36 02:32:00 Test Item Value Reference Range Interpretation Comments RDW (test code = RDW) 22.2 11.5-14.5 [facility] HospitalMpprloqKTRKLTBQLH0491-57-00 02:32:00 Test Item Value Reference Range Interpretation Comments Platelet (test code = Platelet) 104 133-450 [facility] HospitalQgzanneMFKCLRYAIS9977-27-76 02:32:00 Test Item Value Reference Range Interpretation Comments MPV (test code = MPV) 8.3 7.4-10.4 [facility] HospitalSbnqykpHOYFTEEIHT1484-77-08 02:32:00 Test Item Value Reference Range Interpretation Comments INR (test code = INR) 1.12 1 0.85-1.17 [facility] HospitalWdgkjjhVWUVSLTJBH3506-55-68 02:32:00 Test Item Value Reference Range Interpretation Comments PT (test code = PT) 14.2 s 12.0-14.7 [facility] HospitalMdomolyCMISPJNUET7987-30-83 02:32:00 Test Item Value Reference Range Interpretation Comments PTT (test code = PTT) 27.6 s 22.9-35.8 [facility] HospitalJeazmrbAJKCNXATON2387-72-64 02:32:00 Test Item Value Reference Range Interpretation Comments Plt Morph (test code = Normal (04/03/19 9:32 Plt Morph) PM) [facility] HospitalWpxdzqfCOGWXPDTVY0233-13-28 02:32:00 Test Item Value Reference Range Interpretation Comments Segs (test code = Segs) 72.4 45.0-75.0 [facility] HospitalWzsjmgpZCFUURODHS7168-60-27 02:32:00 Test Item Value Reference Range Interpretation Comments Lymphocytes (test code = Lymphocytes) 17.6 20.0-40.0 [facility] HospitalXabqhtqRATQTLFRQR3448-24-78 02:32:00 Test Item Value Reference Range Interpretation Comments Monocytes (test code = Monocytes) 9.7 2.0-12.0 [facility] HospitalSyznvegHMUTLUORAH3496-90-60 02:32:00 Test Item Value Reference Range Interpretation Comments Eosinophils (test code = 0.1 See_Comment [A utomated message] The Eosinophils) system which ge nerated this result tra nsmitted reference range : <=4.0. The reference r felicity was not used to int erpret this result as normal/abnormal . [facility] HospitalOswcsthIHXTZWOBDT7194-12-49 02:32:00 Test Item Value Reference Range Interpretation Comments Basophils (test code = 0.2 See_Comment [Aut omated message] The Basophils) system which ge nerated this result tra nsmitted reference range : <=1.0. The reference r felicity was not used to int erpret this result as normal/abnormal . [facility] HospitalBeolokjXVDBHIQWXD1105-13-70 02:32:00 Test Item Value Reference Range Interpretation Comments Neutrophils # (test code = Neutrophils 5.5 1.5-8.1 #) [facility] HospitalKmaxqquMEHVGGOIAV7801-03-10 02:32:00 Test Item Value Reference Range Interpretation Comments Lymphocytes # (test code = Lymphocytes 1.3 1.0-5.5 #) [facility] HospitalOrazjnuMVUFUOMXAI9630-67-91 02:32:00 Test Item Value Reference Range Interpretation Comments Monocytes # (test code 0.7 See_Comment [Aut omated message] The = Monocytes #) system which generated this result tra nsmitted reference range : <=0.8. The reference r felicity was not used to int erpret this result as normal/abnormal . [place] [id number] 02:32:00 Test Item Value Reference Range Interpretation Comments Ethanol Lvl (test code = Ethanol Lvl) no [place] [id number] 02:32:00 Test Item Value Reference Range Interpretation Comments Etoh (%) (test code = Etoh (%)) no [facility] METABOLIC [id number] 12:36:00 Test Item Value Reference Range Interpretation [...] 9.1 mg/dL 8.5-10.1 N CA) BASIC METABOLIC [id number] 12:30:00 Test Item Value Reference Range Interpretation [...] code = HCGTRIAGE) SPECIMEN COMMENTS: URINECOMMENTS TO CLAMSHELL OPERATOR: URINE TESTUrine Test Result: NEGATIVEAre internal controls (presence of a control line & clear background) OK? YLot # of HCG Test Kit: [id number] Date of Kit: 06/23/2020Test Performed by: Marlene Perfomed on: 01/24/19CHEMISTRY 8 [id number] 13:46:00 Test Item Value Reference Range Interpretation [...] >60 H code = GFRBED) CHEMISTRY 8 [id number] 13:46:00 Test Item Value Reference Range Interpretation [...] H (test code = GFRBED) POC LACTIC [id number] 13:40:00 Test Item Value Reference Range Interpretation Comments POC LACTIC ACID (test code = 0.94 MMOL/L 0.4-2.2 N POCLAC) URINALYSIS [id number] 02:02:00 Test Item Value Reference Range Interpretation [...] #/LPF FEW Urine Source? Clean CatchBASIC METABOLIC [id number] 01:55:00 Test Item Value Reference Range Interpretation [...] 7.7 mg/dL 8.5-10.1 L CA) HEPATIC FUNCTION [id number] 01:55:00 Test Item Value Reference Range Interpretation [...] range due ALKP) to change in reagent. [id number] 01:55:00 Test Item Value Reference Range Interpretation Comments LIPASE (test code = LIP) 123 U/L 73.0-393.0 N HCG SERUM [id number] 01:55:00 Test Item Value Reference Range Interpretation Comments HCG SERUM QUAL (test NEGATIVE NEGATIVE This HC GQL test is NOT code = HCGQL) applicable for MALE patients.Check with nurse about probable order error.If Tumor Marker Test needed, nu rse should order test "HCG TU"(Test #550.19991)---- - BASIC METABOLIC [id number] 01:48:00 Test Item Value Reference Range Interpretation [...] code = CA) mg/dL 8.5-10.1 HEPATIC FUNCTION [id number] 01:48:00 Test Item Value Reference Range Interpretation [...] TOTAL (test IUnit/L 45-117 code = ALKP) [id number] 01:48:00 Test Item Value Reference Range Interpretation Comments LIPASE (test code = LIP) U/L 73.0-393.0 HCG SERUM [id number] 01:48:00 Test Item Value Reference Range Interpretation Comments HCG SERUM QUAL (test NEGATIVE NEGATIVE This HC GQL test is NOT code = HCGQL) applicable for MALE patients.Check with nurse about probable order error.If Tumor Marker Test needed, nu rse should order test "HCG TU"(Test #550.82975)---- - [id number] 01:48:00 Test Item Value Reference Range Interpretation Comments MAGNESIUM (test code = MAG) 1.7 mg/dL 1.8-2.4 L BASIC METABOLIC [id number] 01:41:00 Test Item Value Reference Range Interpretation [...] code = CA) mg/dL 8.5-10.1 HEPATIC FUNCTION [id number] 01:41:00 Test Item Value Reference Range Interpretation [...] TOTAL (test IUnit/L 45-117 code = ALKP) [id number] 01:41:00 Test Item Value Reference Range Interpretation Comments LIPASE (test code = LIP) U/L 73.0-393.0 HCG SERUM [id number] 01:41:00 Test Item Value Reference Range Interpretation Comments HCG SERUM QUAL (test NEGATIVE NEGATIVE This HC GQL test is NOT code = HCGQL) applicable for MALE patients.Check with nurse about probable order error.If Tumor Marker Test needed, nu rse should order test "HCG TU"(Test #550.50830)---- - CBC W/O [id number] 01:37:00 Test Item Value Reference Range Interpretation [...]
--- NOTE | 2022-05-31 01:24 | EDPHYS ---
Physician Documentation [facility] Name: Diana Watson Age: 46 yrs Sex: Female : 1975 Arrival Date: 05/30/2022 Time: 22:51 Bed 7 Private MD: ED Physician Charles Kruger HPI: 05/31 03:27 This 46 yrs old Female presents to ER via EMS with complaints of Abdominal pain. kdr 03:27 ThE PATIENT was found walking on the side of the road and when EMS arrived she had kdr multiple complaints including abdominal pain and issues.. Onset: The symptoms/episode began/occurred suddenly, just prior to arrival. Severity of symptoms: At their worst the symptoms were mild moderate in the emergency department the symptoms have improved markedly. The patient has experienced similar episodes in the past, chronically. It is unknown whether or not the patient has recently seen a physician. Historical: - Allergies: 05/30 22:52 Ancef (rash); hb - PMHx: 22:52 Alcoholism; Anxiety; mitral valve prolapse; Hypertension; Ulcers; hb - Immunization history:: Adult Immunizations unknown. - Social history:: Smoking status: unknown. ROS: 05/31 03:27 Constitutional: Negative for fever, chills, and weight loss, Eyes: Negative for injury, kdr pain, redness, and discharge, Neck: Negative for injury, pain, and swelling, Cardiovascular: Negative for chest pain, palpitations, and edema, Respiratory: Negative for shortness of breath, cough, wheezing, and pleuritic chest pain, Back: Negative for injury and pain, : Negative for injury, bleeding, discharge, and swelling, MS/Extremity: Negative for injury and deformity, Skin: Negative for injury, rash, and discoloration, Neuro: Negative for headache, weakness, numbness, tingling, and seizure activity. Psych: Negative for depression, anxiety, suicide ideation, homicidal ideation, and hallucinations, Allergy/Immunology: Negative for hives, rash, and allergies, Endocrine: Negative for neck swelling, polydipsia, polyuria, polyphagia, and marked weight changes, Hematologic/Lymphatic: Negative for swollen nodes, abnormal bleeding, and unusual bruising. Abdomen/GI: Positive for abdominal pain, Negative for nausea and vomiting, nausea, vomiting, and diarrhea, nausea, vomiting, diarrhea, constipation, abdominal cramps, abdominal distension, black/tarry stool, rectal pain, rectal bleeding. Exam: 03:27 Constitutional: This is a well developed, well nourished patient who is awake, alert, kdr and in no acute distress. The patient clearly has flight of ideas and moves from one complaint to the next during the interview Head/Face: Normocephalic, atraumatic. Eyes: Pupils equal round and reactive to light, extra-ocular motions intact. Lids and lashes normal. Conjunctiva and sclera are non-icteric and not injected. Cornea within normal limits. Periorbital areas with no swelling, redness, or edema. Neck: Trachea midline, no thyromegaly or masses palpated, and no cervical lymphadenopathy. Supple, full range of motion without nuchal rigidity, or vertebral point tenderness. No Meningismus. Chest/axilla: Normal chest wall appearance and motion. Nontender with no deformity. No lesions are appreciated. Cardiovascular: Regular rate and rhythm with a normal S1 and S2. No gallops, murmurs, or rubs. Normal PMI, no JVD. No pulse deficits. Respiratory: Lungs have equal breath sounds bilaterally, clear to auscultation and percussion. No rales, rhonchi or wheezes noted. No increased work of breathing, no retractions or nasal flaring. Abdomen/GI: Soft, non-tender, with normal bowel sounds. No distension or tympany. No guarding or rebound. No evidence of tenderness throughout. Back: No spinal tenderness. No costovertebral tenderness. Full range of motion. Skin: Warm, dry with normal turgor. Normal color with no rashes, no lesions, and no evidence of cellulitis. MS/ Extremity: Pulses equal, no cyanosis. Neurovascular intact. Full, normal range of motion. Neuro: Awake and alert, GCS 15, oriented to person, place, time, and situation. Cranial nerves II-XII grossly intact. Motor strength 5/5 in all extremities. Sensory grossly intact. Cerebellar exam normal. Normal gait. 03:27 Psych: Behavior/mood is pleasant, cooperative, inappropriate for age, Affect is flat, animated, Oriented to person, place, only. Patient has no thoughts/intents to harm self or others. Judgement / Insight is impaired. Delusions/hallucinations are not present. Vital Signs: 05/30 22:57 BP 148 / 93; Pulse 81; Resp 16; Pulse Ox 100% on R/A; Weight 72.57 kg (R); Height 5 ft. jb4 8 in. (172.72 cm) (R); 05/31 02:00 BP 119 / 76; Pulse 65; Resp 16; Pulse Ox 98% on R/A; jb4 02:45 BP 151 / 94; Pulse 74; Resp 18; Pulse Ox 98% on 2 lpm NC; jb4 03:30 BP 144 / 87; Pulse 73; Resp 16; Pulse Ox 100% on 2 lpm NC; jb4 04:15 BP 139 / 75; Pulse 79; Resp 18; Pulse Ox 97% on R/A; jb4 05:00 BP 97 / 66; Pulse 73; Resp 18; Pulse Ox 94% on R/A; jb4 05:45 BP 133 / 90; Pulse 72; Resp 16; Pulse Ox 97% on R/A; jb4 05/30 22:57 Body Mass Index 24.33 (72.57 kg, 172.72 cm) jb4 MDM: 01:23 Patient medically screened. kdr 03:27 Data reviewed: vital signs, nurses notes, lab test result(s), radiologic studies. kdr Counseling: I had a detailed discussion with the patient and/or guardian regarding: the historical points, exam findings, and any diagnostic results supporting the discharge/admit diagnosis, lab results, radiology results, the need for outpatient follow up. 04:38 ED course: Patient remained stable in the ED. She was discharged in good condition.. kdr 05/30 23:35 Order name: CBC with Diff; Complete Time: 04:37 kdr 05/30 23:35 Order name: Comprehensive Metabolic Panel; Complete Time: 04:37 kdr Administered Medications: 01:46 Drug: NS 0.9% 1000 ml Route: IV; Rate: 1 bolus; Site: right antecubital; jb4 01:46 Drug: Ativan (LORazepam) 2 mg Route: IVP; Site: right antecubital; jb4 Disposition Summary: 05/31/22 01:23 Discharge Ordered Location: Home kdr Problem: new kdr Symptoms: have improved kdr Condition: Stable kdr Diagnosis - Dehydration kdr - Weakness kdr Followup: kdr - With: Private Physician - When: 2 - 3 days - Reason: If symptoms return, Further diagnostic work-up, Recheck today's complaints, Continuance of care, Re-evaluation by your physician Discharge Instructions: - Discharge Summary Sheet kdr - Fatigue kdr - Weakness, [id number] kdr Forms: - Medication Reconciliation Form kdr - Thank You Letter kdr Prescriptions: - promethazine 25 mg Oral Tablet - take 1 tablet by ORAL route every 6 hours As needed; 20 tablet; Refills: 0, kdr Product Selection Permitted Signatures: Dispatcher [employer] EDCharles Bailon MD MD kdr Yuki Kingston RN RN Dougie Osorio RN RN jb4
--- NOTE | 2022-05-31 01:24 | ER ---
Nurse's Notes [facility] Name: Diana Watson Age: 46 yrs Sex: Female : 1975 Arrival Date: 05/30/2022 Time: 22:51 Bed 7 Private MD: Diagnosis: Dehydration;Weakness Presentation: 05/30 22:57 Chief complaint: EMS states: Pt was found walking down the road without a shirt on. Was jb4 picked up and called EMS for Chest pain, SOB, and anxiety. Was put on 3L NC for comfort, 12 lead EKG was normal. Coronavirus screen: At this time, the client does not indicate any symptoms associated with coronavirus-19. Ebola Screen: No symptoms or risks identified at this time. Initial Sepsis Screen: Does the patient meet any 2 criteria? No. Patient's initial sepsis screen is negative. Does the patient have a suspected source of infection? No. Patient's initial sepsis screen is negative. Risk Assessment: Do you want to hurt yourself or someone else? Patient reports no desire to harm self or others. Onset of symptoms was May 30, 2022. Transition of care: patient was not received from another setting of care. 22:57 Method Of Arrival: EMS: [facility] jb4 22:57 Acuity: HUAN 3 jb4 Historical: - Allergies: 22:52 Ancef (rash); hb - PMHx: 22:52 Alcoholism; Anxiety; mitral valve prolapse; Hypertension; Ulcers; hb - Immunization history:: Adult Immunizations unknown. - Social history:: Smoking status: unknown. Screenin:00 Abuse screen: Denies threats or abuse. Nutritional screening: No deficits noted. jb4 Tuberculosis screening: No symptoms or risk factors identified. Fall Risk None identified. Assessment: 23:00 General: Appears in no apparent distress. comfortable, Behavior is calm, cooperative, jb4 appropriate for age. Pain: Complains of pain in chest Pain does not radiate. Pain currently is 5 out of 10 on a pain scale. Quality of pain is described as aching. Neuro: Level of Consciousness is awake, alert, obeys commands, Oriented to person, place, time, situation. Cardiovascular: Patient's skin is warm and dry. Respiratory: Airway is patent Respiratory effort is even, unlabored, Respiratory pattern is regular, symmetrical. GI: No signs and/or symptoms were reported involving the gastrointestinal system. : No signs and/or symptoms were reported regarding the genitourinary system. EENT: No signs and/or symptoms were reported regarding the EENT system. Derm: Skin is intact, Skin is pink, warm \T\ dry. 23:00 Musculoskeletal: Circulation, motion, and sensation intact. Range of motion: intact in jb4 all extremities. 05/31 00:00 Reassessment: Patient appears in no apparent distress at this time. Patient and/or jb4 family updated on plan of care and expected duration. Pain level reassessed. Patient is alert, oriented x 3, equal unlabored respirations, skin warm/dry/pink. 01:10 Reassessment: Pt is screaming and singing in the hallway, returned to her room and jb4 began screaming at people that were not there. 02:00 Reassessment: Pt now resting in be with eyes closed, respirations are even and jb4 unlabored with no s/s of pain or distress noted. D/c pending further monitoring after Ativan administration. 03:00 Reassessment: Patient appears in no apparent distress at this time. No changes from jb4 previously documented assessment. Patient and/or family updated on plan of care and expected duration. Pain level reassessed. 04:00 Reassessment: Patient appears in no apparent distress at this time. No changes from jb4 previously documented assessment. Patient and/or family updated on plan of care and expected duration. Pain level reassessed. 05:00 Reassessment: Patient appears in no apparent distress at this time. No changes from jb4 previously documented assessment. Patient and/or family updated on plan of care and expected duration. Pain level reassessed. Reassessment:. 06:39 Reassessment: Patient appears in no apparent distress at this time. Patient and/or jb4 family updated on plan of care and expected duration. Pain level reassessed. Patient is alert, oriented x 3, equal unlabored respirations, skin warm/dry/pink. Pt is now awake and back to baseline orientation. Discharged to [facility] to wait for ride home. Vital Signs: 05/30 22:57 BP 148 / 93; Pulse 81; Resp 16; Pulse Ox 100% on R/A; Weight 72.57 kg (R); Height 5 ft. jb4 8 in. (172.72 cm) (R); 05/31 02:00 BP 119 / 76; Pulse 65; Resp 16; Pulse Ox 98% on R/A; jb4 02:45 BP 151 / 94; Pulse 74; Resp 18; Pulse Ox 98% on 2 lpm NC; jb4 03:30 BP 144 / 87; Pulse 73; Resp 16; Pulse Ox 100% on 2 lpm NC; jb4 04:15 BP 139 / 75; Pulse 79; Resp 18; Pulse Ox 97% on R/A; jb4 05:00 BP 97 / 66; Pulse 73; Resp 18; Pulse Ox 94% on R/A; jb4 05:45 BP 133 / 90; Pulse 72; Resp 16; Pulse Ox 97% on R/A; jb4 05/30 22:57 Body Mass Index 24.33 (72.57 kg, 172.72 cm) jb4 ED Course: 05/30 22:51 Patient arrived in ED. hb 22:52 Arm band placed on. hb 22:57 Dougie Osorio RN is Primary Nurse. jb4 22:58 Charles Kruger MD is Attending Physician. kdr 22:59 Triage completed. jb4 23:00 Patient has correct armband on for positive identification. Bed in low position. Call jb4 light in reach. Side rails up X 1. Client placed on continuous cardiac and pulse oximetry monitoring. NIBP monitoring applied. 23:00 Patient maintains SpO2 saturation greater than 95% on room air. jb4 05/31 06:45 IV discontinued, intact, bleeding controlled, No redness/swelling at site. Pressure jb4 dressing applied. 06:46 No provider procedures requiring assistance completed. jb4 Administered Medications: 01:46 Drug: NS 0.9% 1000 ml Route: IV; Rate: 1 bolus; Site: right antecubital; jb4 01:46 Drug: Ativan (LORazepam) 2 mg Route: IVP; Site: right antecubital; jb4 Outcome: 01:23 Discharge ordered by . kdr 06:46 Discharged to home via wheelchair. jb4 06:46 Condition: stable 06:46 Discharge instructions given to patient, Instructed on discharge instructions, follow up and referral plans. medication usage, Demonstrated understanding of instructions, follow-up care, medications, Prescriptions given X 1. 06:46 Patient left the ED. jb4 Signatures: Charles Kruger MD MD [facility] Yuki Kingston RN RN Dougie Osorio RN RN jb4 Corrections: (The following items were deleted from the chart) 04:24 01:00 Reassessment: Patient appears in no apparent distress at this time. Patient jb4 and/or family updated on plan of care and expected duration. Pain level reassessed. Patient is alert, oriented x 3, equal unlabored respirations, skin warm/dry/pink. jb4 04:24 02:00 Reassessment: Patient appears in no apparent distress at this time. Patient jb4 and/or family updated on plan of care and expected duration. Pain level reassessed. Patient is alert, oriented x 3, equal unlabored respirations, skin warm/dry/pink. jb4 06:40 02:00 Reassessment: Pt now resting in be dwith eyes closed, respirations are even and jb4 unlabored with no s/s of pain or distress noted. jb4
[2022-05-31] MEDS ORDERED: NA CHLORIDE 0.9% 1,000 ML ONE (01:42)
[2022-05-31] MEDS ORDERED: LORazepam 2 MG/ML VIAL ONE (01:46)
[2022-05-31 02:26] LABS: Absolute Lymphocytes (CBC) 2.9 K/uL (0.7-4.9); Hematocrit 40.9 % (36.0-45.0); Lymphocytes % 40.8 % (15.3-44.8); MCV 87.6 fL (80-100); MPV 8.8 fL (7.6-11.3); RBC Red Blood Cell Count 4.67 M/uL (3.86-4.86)
[2022-05-31 02:36] LABS: Albumin 3.8 g/dL (3.4-5.0); Bilirubin Total 0.6 mg/dL (0.2-1.0); Potassium 3.4 mmol/L (3.5-5.1); Protein, Total 7.5 g/dL (6.4-8.2)
[2022-05-31 07:01] VITALS: BP 133/90; O2SAT 97
== END 2022-05-31 06:46 | disposition home or self-care (01) ==
LOC: ER 22:46
DX: E86.0 Dehydration (principal); R53.1 Weakness; F10.20 Alcohol dependence, uncomplicated; I10 Essential (primary) hypertension
CPT/HCPCS: 36415; 80053; 85025; 96374; 99284; J7030

== ENCOUNTER 2022-06-13 07:36 | Emergency (ER) | payer SELFPAY ==
--- OUTSIDE RECORDS SUMMARY | 2022-06-13 07:44 | XMS REPORT | Continuity of Care Document ---
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 Comments HEMOGLOBIN A1c (test code = 35708) 5.7 % 4.2-5.6 H CBC W/AUTO DIFF WITH [id number] 05:56:42 Test Item Value Reference Range Interpretation [...] RBCS 0.00 K/UL 0.00-0.11 (test code = 34743) Drug Screen,[id number] 14:31:00 Test Item Value Reference Range Interpretation [...] Negative code = UPROP) UA, Urinalysis Rflx Cult/[id number] 14:31:00 Test Item Value Reference Range Interpretation Comments Color,Urine (test code = UCOL) Yellow Yellow Clarity,Urine (test code = Cloudy Clear A UCLAR) Ph, Urine (test code = UPH) 5.0 5.0-9.0 N Specific [place],Urine (test 1.020 1.005-1.030 N code = USG) [...] A code = ULEU) UF REFLEXUF REFLEXUrine [id number] 14:31:00 Test Item Value Reference Range Interpretation Comments RBC,Urine (test code = URBCUF) 3-5 /HPF 0-2 A WBC,Urine (test code = UWBCUF) >50 /HPF 0-5 A Epithelial Cell,Urine (test code = 6-10 /HPF 0-5 A UECUF) Casts,Urine (test code = UCASTUF) 0-5 /LPF None Seen Bacteria,Urine (test code = Few /hpf None Seen A UBACTUF) UF REFLEXUF REFLEXComplete Blood Count Auto [id number] 14:26:00 Test Item Value Reference Range Interpretation [...] code = NRBCP) 0 % Comprehensive Metabolic [id number] 14:26:00 Test Item Value Reference Range Interpretation [...] 90 U/L 46-116 N = ALP) Ethanol [id number] 14:26:00 Test Item Value Reference Range Interpretation [...] = Negative Negative HCGQ) Coronavirus PCR, COVID19 [id number] 14:25:00 Test Item Value Reference Range Interpretation Comments Coronavirus PCR, COVID19 Rapid (test code = SARSCOV2) Coronavirus PCR, COVID19 Reference Range: Rapid (test code = Negative YLSUTWX03.1) SARS-CoV-2 PCR Result: Negative by RT-PCR (test code = SARS-CoV-2 PCR Result:) COVID-19 Status: AsymptomaticANA TITER AND [id number] 04:38:09 Test Item Value Reference Range Interpretation Comments PATTERN (test HOMOGENEOUS NONE A code = 91087) HARMONY TITER 1:80 TITER See_Comment H [Automated mes corie] (test code = The system Woppa 3550) generated this result transmitted ref erence range: <1:40. T he reference range was not used to interpr et this result as normal/abnormal . PATTERN 2 NOT DETECTED NONE (test code = 47980) HARMONY TITER 2 NOT DETECTED TITER See_Comment [Automat ed message] (test code = The system Location h [address]) generated this result transmitted ref erence range: <1:40. T he reference range was not used to interpr et this result as normal/abnormal . PATTERN 3 NOT DETECTED NONE (test code = 05387) HARMONY TITER 3 NOT DETECTED TITER See_Comment [Automat ed message] (test code = The system Woppa 66555) generated this result transmitted ref erence range: <1:40. T he reference range was not used to interpr et this result as normal/abnormal . METHOD (test (NOTE) Methodology is code = 44152) Indirect Immunofluoresce nt Assay (IFA) with a EverZero system using He p2000 cells (Hep2 esteban ls transfected wit h SS-A/Ro). A pat tern reported as SS- A is considered conf irmatory in the appropri ate clinical contex t. Titers of 1:40 and 1:80 are considered weak/borderline positive. UNLE SS OTHERWISE INDIC ATED, ALL TESTING PER [facility]MED [facility], I [place]. [address] [place] [address] LABORATOR Y DIRECTOR: ANASTASIIA ERVIN M.D. CLIA NUMBER [id number] CAP ACCREDITATION N O. [id number] HARMONY (ANTI-NUCLEAR AB) WITH REFLEX [id number] 13:05:47 Test Item Value Reference Range Interpretation Comments ANTI-NUCLEAR ANTIBODIES (test code = POSITIVE NEGATIVE A 3506) RBC [id number] 21:19:00 Test Item Value Reference Range Interpretation Comments ANISOCYTOSIS (test code = ANISO) 1+ POLYCHROMASIA (test code = POLC) SLIGHT HYPOCHROMIA (test code = HYPO) 1+ MICROCYTOSIS (test code = MICR) 1+ MACROCYTOSIS (test code = MACR) FEW TEAR DROP CELLS (test code = TEAR) FEW CBC W/AUTO [id number] 21:19:00 Test Item Value Reference Range Interpretation Comments WHITE BLOOD CELL 6.3 x10 3/uL 4.5-11.0 N (test code = WBC) RED BLOOD CELL (test 3.90 x10 6/uL 3.54-5.02 N code = RBC) HEMOGLOBIN (test code 6.4 g/dL 11.0-15.0 LL Critic al result = HGB) called to CARLY CEDEÑO Rby 30MNG2415 at 13 0407/20/21Ndeirdre r peace back resut and tech confirmed it's correct? [...] NO (test code = MDIFF) COMPREHENSIVE METABOLIC [id number] 19:46:00 Test Item Value Reference Range Interpretation [...] TOTAL (test code = ALKP) TROP-I HIGH [id number] 19:46:00 Test Item Value Reference Range Interpretation [...] URLs mayvar y by method. HCG SERUM [id number] 19:39:00 Test Item Value Reference Range Interpretation Comments HCG SERUM QUAL (test code = SERUM NEGATIVE NEGATIVE HCGQL) UA RFLX MICR CULT IF [id number] 19:35:00 Test Item Value Reference Range Interpretation [...] Flank PainSpecimen Description: MID STREAM- CT CHEST W/[id number] [facility]:00:[address] [facility] 1975 Sex: F Name: TARUN WATSON [facility] : 1975 Age/S: 46 / [place] [address] [place] [address] Unit #: [id number] Loc: TEJAS García [address] Phys: BelmontSampson CHE Acct: [id number] Dis Date: Status: REG ER PHONE #: [phone] Exam Date: 07/20/20212058 FAX #: [phone] Reason: fall, LUQ abdominal pain EXAMS: CPT CODE: [id number] CT CHEST W/CONTRAST 27607 PROCEDURE INFORMATION: Exam: CT Chest With Contrast; [...] clinical indication); or iterative reconstruction. Contrast material: CCA953; Contrast v olume: 100 ml; Contrast route: INTRAVENOUS (IV); COMPARISON: No relevant prior studies available. FINDINGS: Lungs: No consolidation. No masses. Pleural spaces: Unremarkable. No pneumothorax. No pleuraleffusion. Heart: No cardiomegaly. No pericardial effusion. Mild [...] 1 Signed Report (CONTINUED) Name: TARUN WATSON [facility] : 1975 Age/S: 46 / F [address] [place] [address] Unit #: [id number] Loc: [place] [address] Phys: Sampson Johnson Acct: [id number] Dis Date: Status: REG ER PHONE #: [phone] Date: 07/20/20212058 FAX #: [phone] Reason: fall, LUQ abdominal pain EXAMS: CPT CODE: [id number] CHEST W/CONTRAST 13668 <Continued> control; mA and/or kV adjustment per patient size(includes targeted exams where dose is matched to clinical indication); or iterative reconstruction.Contrast material: VMN577; Contrast volume: 100 ml; Contrast route: INTRAVENOUS (IV); COMPARISON: No relevant prior studies available. FINDINGS: Liver: Size and contours appear normal. Gallbladder and bile ducts: Gallbladder surgically absent. No abnormal findings seen in the postcholecystectomy bed. Pancreas: No surrounding inflammation. Spleen: No abnormality detected. Adrenal glands: No detected le sions. Kidneys and ureters: Kidneys normal in size and contour. No renal stones. Visualized portionsof bilateral collecting systems demonstrate no hydronephrosis. No detected ureteral stones. Stomach and bowel: No obstructive or inflammatory pattern detected. Ucpn-bu-gttxlwts amount of stool retained within the colon. [...] Bones of the pelvis appear intact without fractureor diastases. No hip dislocation. Soft tissues: No [...] 2 Signed Report (CONTINUED) Name: TARUN WATSON :1975 Age/S: 46 / [place] [address] [place] [address] Unit #: [id number] Loc: [place] [address] Phys: Sampson Trotter Acct: [id number] Dis Date: Status: REG ER PHONE #: [phone] Exam Date: 07/20/20212058 FAX #: [phone] Reason: fall, LUQ abdominal pain EXAMS: CPT CODE: [id number] CT CHEST W/CONTRAST 54956 <Continued> at 2124 Reported and signed by: Felix Cali M.D. CC: Sampson BOLTON Technologist:RT Shanique(R) CTDI: DLP: Trnscb Date/Time: 07/20/2021 (2124) t.DOUGR.RR21 Orig Print D/T: S: 07/20/2021 (2125) PAGE 3 Signed Report- CT ABD PELVIS W/CONT 2021-07-20 00:00:00 [facility] : 1975 Sex: F Name: TARUN WATSON : 1975 Age/S: 46 / [place] [address] [place] [address] Unit #: [id number] Loc: [place] [address] Phys: Sampson Johnson Acct: [id number] Dis Date: Status: REG ER PHONE #: [phone] Exam Date: 07/20/20212057 FAX #: [phone] Reason: Fall, LUQ abdominal pain EXAMS: CPT CODE: [id number] CT ABD PELVIS W/CONT 25187 PROCEDURE INFORMATION: Exam: CT Chest With Contrast; Diagnostic Exam date and time: 07/20/2021 9:05 PM Age: 46 years old Clinical indication: Abdominal pain; Localized; Left upper quadrant (luq); Intercostal; Additional info: Fall, luq abdominal pain TECHNIQUE: Imaging protocol: Diagnostic computed tomography of the chest with contrast. Radiation o ptimization: All CT scans at this facility use at least one of these dose optimization techniques: automated exposure control; mA and/or kV adjustment per patient size (includes targeted exams where dose is matched to clinical indication); or iterative reconstruction. Contrast material: XLJ323; Contrast volume: 100 ml; Contrast route: INTRAVENOUS (IV); COMPARISON: No relevant prior studies available.FINDINGS: Lungs: No consolidation. No masses. Pleural spaces: [...] detected displaced rib fracture. Sternum intact. Visualized bilat eral clavicles and bones of the bilateral shoulders [...] 1 Signed Report (CONTINUED) Name: TARUN WATSON [facility] : 1975 Age/S: 46 / F [address] [place] [address] Unit #: [id number] Loc: [place] [address] Phys: Sampson Johnson CHE Acct: [id number] Dis Date: Status: REG ER PHONE #: [phone] Exam Date: 07/20/20212057 FAX #: [phone] Reason: Fall, LUQ abdominal pain EXAMS: CPT CODE: [id number] CT ABD PELVIS W/CONT 63832 <Continued> control; mA and/or kV adjustment per patient size (includes targeted exams where dose is matched to clinical indication); or iterative reconstruction. Contrast material: RTJ041; Contrast volume: 100 ml; Contrast route: INTRAVENOUS (IV); COMPARISON:No relevant prior studies available. FINDINGS: Liver: Size [...] bowel: No obstructive or inflammatory pattern detected. Fryh-py-nfwxifip amount of stool retained within the colon. [...] 2 Signed Report (CONTINUED) Name: TARUN WATSON [facility] : 1975 Age/S: 46 / F [address] [place] [address] Bl Unit #: [id number] Loc: [place] [address] Phys: Sampson Johnson Acct: [id number] Dis Date: Status: REG ER PHONE #: [phone] Exam Date: 07/20/20212057 FAX #: [phone] Reason: Fall, LUQ abdominal pain EXAMS: CPT CODE: [id number] CT ABD PELVIS W/CONT 56030 <Continued> at 2124 Reported and signed by: Felix Cali M.D. CC: Sampson BOLTON Technologist:Reina Luna, RT(R) CTDI: DLP: Trnscb Date/Time: 07/20/2021 (2124) t.SDR.RR21 Orig Print D/T: S: 07/20/2021 (2125) PAGE 3 Signed ReportANA NON-REFLEX TO [id number] 08:05:02 Test Item Value Reference Range Interpretation Comments ANTI-NUCLEAR POSITIVE NEGATIVE A Methodology is Indirect ANTIBODIES (test Immunofluor escent Assay code = 3506) (IFA) with a EverZero system using He p2000 cells (Hep2 cells tra nsfected with SS-A/Ro). A pattern reported as SS- A is considered conf irmatory in the appropriate clinical context. UNLESS OTHERWISE INDICATED, ALL TESTING PERFORMED [facility] [address] [place] [id number] [place] [address] DIRECTOR: ANASTASIIA ERVIN M.D. CLIA NUMBER [id number] CAP ACCREDITATION N O. [id number] CBC W/AUTO DIFF WITH [id number] 06:35:05 Test Item Value Reference Range Interpretation [...] LL BE ELIMINATED REDUNDANT TOABS OLUTE COUNTS.SEE www.[employer] /final _CBC_reporting_ update LYMPHOCYTES (test 24.1 % code = 1010) MONOCYTES (test code 8.1 % = 1011) EOSINOPHILS (test 2.7 % code = 1012) BASOPHILS (test code 0.8 % = 1013) IMMATURE 0.3 % GRANYLOCYTES (test code = 1036) NUCLEATED RBCS (test 0.0 /100 See_Comment [Autom ated message] code = 1065) WBC'S The system Woppa generated this result transmitted ref erence range: [...] RBCS 0.00 K/UL 0.00-0.11 (test code = 39366) COMMENTS (test code (NOTE) SLIGHT ANISOCYTOSIS = 1016) MARKED HYPOCHRO MASIA MARKED MICROCYT OSIS SLIGHT POLYCHRO MASIA PLATELETS APPEA R NORMAL VITAMIN D, 25 [id number] 06:27:00 Test Item Value Reference Range Interpretation Comments VITAMIN D, 25 OH 16 NG/ML SEE BELOW L NOTE: 25-H YDROXYVITAMIN D (test code = 4958) ASSAY INC LUDES 25-HYDROXYVITAM IN D2 AND D3. METHODOLOGY IS CHEMILUMINESCEN T IMMUNOASSAY. * INTERPRETIVE RA NGES PEDIATRIC (<17 YEARS) . [...] . . . NG/ML 30-100 TSH, THIRD [id number] 06:20:17 Test Item Value Reference Range Interpretation Comments TSH, THIRD GENERATION (test code 0.956 UIU/ML 0.400-4.100 = 2821) COMPREHENSIVE METABOLIC [id number] 03:23:06 Test Item Value Reference Range Interpretation Comments GLUCOSE (test code = 85 MG/DL 70-99 2216) BUN (test code = 8 MG/DL 6-20 2207) CREATININE (test 0.60 MG/DL 0.60-1.30 EFFECTIVE code = 2214) 07/06/2021, [facility] HAS IMPLEMENTED THE NKF-ASN RECOMME NDED KD-EPI EGF R REFIT CALCULATI ON THAT DOES NOT INCLUDE A COEFFICIENT FOR RACE. FOR MORE INFORMATION, SE E ANNOUNCEMENT [email or web address] .COM/EGFR_CALC eGFR (2020 CKD-EPI) 111 >60 (test code = 15172) ML/MIN/1.73 CALC BUN/CREAT (test 13 RATIO 6-28 code = 2235) SODIUM (test code = 142 MEQ/L 863-022 5892) POTASSIUM (test code 3.7 MEQ/L 3.5-5.4 = [...] PHOSPHATASE 94 U/L 40-120 (test code = 220) AST (test code = 23 U/L 9-40 2217) ALT (test code = 18 U/L 5-40 2218) LIPID [id number] 03:23:06 Test Item Value Reference Range Interpretation [...] MOREINFORMATION , SEE CLIENT ANNOUNCE MENT AT [email or web address] /CalcLDL-C RISK RATIO LDL/HDL 1.57 RATIO <3.22 (test code = 2238) LACTIC ACID [id number] 10:18:00 Test Item Value Reference Range Interpretation Comments LACTIC ACID POC Test not performed 0.36-1.25 Previo usly reported (test code = mmol/L result: 3.35 LACTP) mmol/LEdited by : LINDA on 20:1017~~ Corrected Repor t ~~Reason (required):CART RIDG E ERROR PER FAL ON- TEST REPEATED W ITH NEW COLLECTION AND CARDTRIDGE [id number] 06:57:00 Test Item Value Reference Range Interpretation Comments POTASSIUM (test code = K) 3.0 MMOL/L 3.6-5.2 L [id number] 06:42:00 Test Item Value Reference Range Interpretation Comments MAGNESIUM (test code = MAG) 2.2 mg/dL 1.7-2.8 N LACTIC [id number] 06:24:00 Test Item Value Reference Range Interpretation Comments LACTIC ACID (test code = LACT) 0.80 mmol/L 0.5-2.2 N [id number] 21:26:00 Test Item Value Reference Range Interpretation Comments MAGNESIUM (test code = MAG) 1.4 mg/dL 1.7-2.8 L URINALYSIS DIPSTICK [id number] 19:39:00 Test Item Value Reference Range Interpretation [...] NEGATIVE (test code = LEUU) LACTIC ACID [id number] 18:38:00 Test Item Value Reference Range Interpretation Comments LACTIC ACID POC (test code = 2.44 mmol/L 0.36-1.25 H LACTP) LACTIC ACID [id number] 18:02:00 Test Item Value Reference Range Interpretation Comments LACTIC ACID POC (test code = 3.35 mmol/L 0.36-1.25 H LACTP) - CT ABD PELVIS W/O [id number] 17:22:00 [facility] : 1975 Sex: FPatientName: TARUN WATSON Unit No: [id number] EXAMS: CPT: [id number] CT ABD PELVIS W/O CONT [address]85 CT ABDOMEN AND PELVIS WITHOUT CONTRAST Comparison: None HISTORY: UPPER ABDOMINAL PAIN Technique:Contiguous axial images through the abdomen and pelvis performed without intravenous or oral contrast. Findings:Evaluation of the solid abdominal organs and bowel limited by lack of contrast. The lung bases are clear. Small hiatal hernia. Nonspecific mild circumferential thickening of the distal esophagus. The noncontrast appearance of liver, pancreas, stomach, adrenals, spleen, aorta, is unremarkable. There isno evidence of acute diverticulitis. Appendix is not visualized with surgical sutures near the ileoce yosvany valve, likely secondary to prior appendectomy. No bowel dilatation or obstruction. No adenopathy or free fluid. No acute osseous findings. There is no renal ureteral stone. The urinary bladder is unremarkable. The gallbladder is surgically absent. There is no ductal dilatation. IMPRESSION 1. No findings in the abdomen and pelvis 2. Small hiatal hernia. Nonspecific mild circumferential thickeningof the distal esophagus. at 1722 Reported and signed by: SULEMA BLOOM M.D. CC: Juan Maya DO Technologist: Marleny Herrera CTDI: 9.07 DLP: 415.78 Trscr Dt/Tm: 06/17/2020 (1722) by:[email or web address] Orig Print D/T: S: 0 (820) BATCH NO: N/A Name: TARUN WATSON FSED Phys: DANIEL - Juan Maya [id number] [id number] : 1975 Age: 44 Sex: [place] [id number] Loc: KEVIN Exam Date:06/17/2020 Status: PRE ER PH: FAX: PAGE 1 Signed ReportDRUGS OF ABUSE SCREEN [id number] 17:03:00 Test Item Value Reference Range Interpretation [...] code = MDMA) NEGATIVE NEGATIVE URINALYSIS DIPSTICK [id number] 16:58:00 Test Item Value Reference Range Interpretation [...] code = LEUU) - XR CHEST 2 [id number] 16:49:00 [facility] : 1975 Sex: FPatientName: TARUN WATSON Unit No: [id number] EXAMS: CPT: [id number] XR CHEST 2 V 51362 COMPARISON: None. CHEST RADIOGRAPHS -FRONTAL AND LATERAL VIEWS. INDICATION: Shortness of breath. FINDINGS: The lungs are clear. No consolidation or effusion is seen. The hilar regions and pulmonary vasculature are unremarkable. Cardiac silhouette is normal. IMPRESSION: No acute lung disease. at 1649 Reported and signed by: Mykel Williamson MD CC: Juan Maya DO Technologist: Marleny Herrera [facility] Dt/Tm: 06/17/2020 (1648) by:[email or web address] Orig Print D/T: S: 06/17/2020 (1651) BATCH NO: N/A Name: TARUN WATSON FSED Phys: BARDE - Juan Maya XXXX FM [id number] : 1975 Age: 44 Sex: [place] [id number] [facility] Ex[facility] Date: 06/17/2020 Status: PRE ER PH: FAX: PAGE 1 Signed Report [id number] 16:46:00 Test Item Value Reference Range Interpretation Comments AMYLASE (test code = CHRIS) 78 U/L 14-97 N COMPREHENSIVE METABOLIC [id number] 16:26:00 Test Item Value Reference Range Interpretation [...] = IU/L 42-141 N ALKP) COMPREHENSIVE METABOLIC [id number] 16:26:00 Test Item Value Reference Range Interpretation [...] 75 IU/L 42-141 N ALKP) CBC W/AUTO [id number] 16:21:00 Test Item Value Reference Range Interpretation [...] = BA#) 0.08 K/mm3 0.0-0.1 N SARS-COV2/RT-PCR ([facility])2020-02-21 14:06:00 Test Item Value Reference Range Interpretation Comments SARS-COV2/RT-PCR (test Negative Not Detected, Negative, code = 2704811) See external report for linked test SARS-COV-2 PERFORMING LAB [facility] (test code = 0225075) Negative result for this test determines that [...] of the Act.Fact Sheet for Healthcare Prov iders:https://www.Gelesis/sites/default/files/product/documents/Fact_Sheet_HC _Tuqqkphqq_Rcqd_LAFJ-NqU-6.pdfFact Sheet for Healthcare Patients:https://www.Getup Cloud.Miso [employer]/sites/default/files/product/docume nts/Dvee_Rdshk_Qlvwomuv_Ifgk_QZXP-FqV-9.pdfPerforming Laboratory:[facility], [place] [address]LSMYH AND [id number] 17:42:00 Test Item Value Reference Range Interpretation Comments UA Color (test code = Yellow *NA*(04/07/19 UA Color) 12:42 PM) [facility] AND [id number] 17:42:00 Test Item Value Reference Range Interpretation Comments UA Turbidity (test code = Clear (04/07/19 12:42 UA Turbidity) PM) [facility] AND [id number] 17:42:00 Test Item Value Reference Range Interpretation Comments UA Spec Grav (test code = UA Spec 1.010 1 Grav) [facility] AND [id number] 17:42:00 Test Item Value Reference Range Interpretation Comments UA pH (test code = UA pH) 6.0 1 5.0-8.0 [facility] AND [id number] 17:42:00 Test Item Value Reference Range Interpretation Comments UA Protein (test code = UA Negative mg/dL Protein) [facility] AND [id number] 17:42:00 Test Item Value Reference Range Interpretation Comments UA Glucose (test code = UA Negative mg/dL Glucose) [facility] AND [id number] 17:42:00 Test Item Value Reference Range Interpretation Comments UA Ketones (test code = UA Negative mg/dL Ketones) [facility] AND [id number] 17:42:00 Test Item Value Reference Range Interpretation Comments UA Bili (test code = Negative *NA*(04/07/19 UA Bili) 12:42 PM) [facility] AND [id number] 17:42:00 Test Item Value Reference Range Interpretation Comments UA Blood (test code = Negative (04/07/19 12:42 UA Blood) PM) [facility] AND [id number] 17:42:00 Test Item Value Reference Range Interpretation Comments UA Nitrite (test code Negative (04/07/19 12:42 = UA Nitrite) PM) [facility] AND [id number] 17:42:00 Test Item Value Reference Range Interpretation Comments UA Leuk Est (test Negative (04/07/19 12:42 code = UA Leuk Est) PM) [facility] AND [id number] 17:42:00 Test Item Value Reference Range Interpretation Comments UA Sq Epi (test code = UA Sq Occasional /LPF Epi) [facility] AND [id number] 17:42:00 Test Item Value Reference Range Interpretation Comments UA WBC (test code = 1 See_Comment [Automa burke message] The UA WBC) system which ge nerated this result transmit burke reference range : <=5. The reference range was not used to interpr et this result as marleny l/abnormal. [facility] AND [id number] 17:42:00 Test Item Value Reference Range Interpretation Comments UA Bacteria (test code = UA Occasional /HPF Bacteria) [facility] AND [id number] 17:42:00 Test Item Value Reference Range Interpretation Comments UA Mucus (test code = UA Mucus) Few /LPF [facility] AND [id number] 17:42:00 Test Item Value Reference Range Interpretation Comments UA Urobilinogen (test code = UA <=1.0 mg/dL 0.1-1.0 Urobilinogen) [facility] AND [id number] 17:42:00 Test Item Value Reference Range Interpretation Comments UA Color (test code = Yellow *NA*(04/07/19 UA Color) 12:42 PM) [facility] AND [id number] 17:42:00 Test Item Value Reference Range Interpretation Comments UA Turbidity (test code = Clear (04/07/19 12:42 UA Turbidity) PM) [facility] AND [id number] 17:42:00 Test Item Value Reference Range Interpretation Comments UA Spec Grav (test code = UA Spec 1.010 1 Grav) [facility] AND [id number] 17:42:00 Test Item Value Reference Range Interpretation Comments UA pH (test code = UA pH) 6.0 1 5.0-8.0 [facility] AND [id number] 17:42:00 Test Item Value Reference Range Interpretation Comments UA Protein (test code = UA Negative mg/dL Protein) [facility] [facility] [id number] 17:42:00 Test Item Value Reference Range Interpretation Comments UA Glucose (test code = UA Negative mg/dL Glucose) [facility] AND [id number] 17:42:00 Test Item Value Reference Range Interpretation Comments UA Ketones (test code = UA Negative mg/dL Ketones) [facility] AND [id number] 17:42:00 Test Item Value Reference Range Interpretation Comments UA Bili (test code = Negative *NA*(04/07/19 UA Bili) 12:42 PM) [facility] AND [id number] 17:42:00 Test Item Value Reference Range Interpretation Comments UA Blood (test code = Negative (04/07/19 12:42 UA Blood) PM) [facility] AND [id number] 17:42:00 Test Item Value Reference Range Interpretation Comments UA Nitrite (test code Negative (04/07/19 12:42 = UA Nitrite) PM) [facility] AND [id number] 17:42:00 Test Item Value Reference Range Interpretation Comments UA Leuk Est (test Negative (04/07/19 12:42 code = UA Leuk Est) PM) [facility] AND [id number] 17:42:00 Test Item Value Reference Range Interpretation Comments UA Sq Epi (test code = UA Sq Occasional /LPF Epi) [facility] AND [id number] 17:42:00 Test Item Value Reference Range Interpretation Comments UA WBC (test code = 1 See_Comment [Automa burke message] The UA WBC) system which ge nerated this result transmit burke reference range : <=5. The reference range was not used to interpr et this result as marleny l/abnormal. [facility] AND [id number] 17:42:00 Test Item Value Reference Range Interpretation Comments UA Bacteria (test code = UA Occasional /HPF Bacteria) [facility] AND [id number] 17:42:00 Test Item Value Reference Range Interpretation Comments UA Mucus (test code = UA Mucus) Few /LPF [facility] AND [id number] 17:42:00 Test Item Value Reference Range Interpretation Comments UA Urobilinogen (test code = UA <=1.0 mg/dL 0.1-1.0 Urobilinogen) [facility] AND [id number] 17:42:00 Test Item Value Reference Range Interpretation Comments UA Color (test code = Yellow *NA*(04/07/19 UA Color) 12:42 PM) [facility] AND [id number] 17:42:00 Test Item Value Reference Range Interpretation Comments UA Turbidity (test code = Clear (04/07/19 12:42 UA Turbidity) PM) [facility] AND [id number] 17:42:00 Test Item Value Reference Range Interpretation Comments UA Spec Grav (test code = UA Spec 1.010 1 Grav) [facility] AND [id number] 17:42:00 Test Item Value Reference Range Interpretation Comments UA pH (test code = UA pH) 6.0 1 5.0-8.0 [facility] AND [id number] 17:42:00 Test Item Value Reference Range Interpretation Comments UA Protein (test code = UA Negative mg/dL Protein) [facility] AND [id number] 17:42:00 Test Item Value Reference Range Interpretation Comments UA Glucose (test code = UA Negative mg/dL Glucose) [facility] AND [id number] 17:42:00 Test Item Value Reference Range Interpretation Comments UA Ketones (test code = UA Negative mg/dL Ketones) [facility] AND [id number] 17:42:00 Test Item Value Reference Range Interpretation Comments UA Bili (test code = Negative *NA*(04/07/19 UA Bili) 12:42 PM) [facility] AND [id number] 17:42:00 Test Item Value Reference Range Interpretation Comments UA Blood (test code = Negative (04/07/19 12:42 UA Blood) PM) [facility] AND [id number] 17:42:00 Test Item Value Reference Range Interpretation Comments UA Nitrite (test code Negative (04/07/19 12:42 = UA Nitrite) PM) [facility] AND [id number] 17:42:00 Test Item Value Reference Range Interpretation Comments UA Leuk Est (test Negative (04/07/19 12:42 code = UA Leuk Est) PM) [facility] AND [id number] 17:42:00 Test Item Value Reference Range Interpretation Comments UA Sq Epi (test code = UA Sq Occasional /LPF Epi) [facility] AND [id number] 17:42:00 Test Item Value Reference Range Interpretation Comments UA WBC (test code = 1 See_Comment [Automa burke message] The UA WBC) system which ge nerated this result transmit burke reference range : <=5. The reference range was not used to interpr et this result as marleny l/abnormal. [facility] AND [id number] 17:42:00 Test Item Value Reference Range Interpretation Comments UA Bacteria (test code = UA Occasional /HPF Bacteria) [facility] AND [id number] 17:42:00 Test Item Value Reference Range Interpretation Comments UA Mucus (test code = UA Mucus) Few /LPF [facility] AND [id number] 17:42:00 Test Item Value Reference Range Interpretation Comments UA Urobilinogen (test code = UA <=1.0 mg/dL 0.1-1.0 Urobilinogen) [facility]2019-09-14 08:47:00 Test Item Value Reference Range Interpretation Comments Sodium Lvl (test code = Sodium Lvl) 142 135-145 [facility]2019-09-14 08:47:00 Test Item Value Reference Range Interpretation Comments Potassium Lvl (test code = Potassium 3.4 3.5-5.1 Lvl) [facility]2019-09-14 08:47:00 Test Item Value Reference Range Interpretation Comments Chloride Lvl (test code = Chloride Lvl) 103 95-109 [facility]2019-09-14 08:47:00 Test Item Value Reference Range Interpretation Comments CO2 (test code = CO2) 33 24-32 [facility]2019-09-14 08:47:00 Test Item Value Reference Range Interpretation Comments AGAP (test code = AGAP) 9.4 10.0-20.0 [facility]2019-09-14 08:47:00 Test Item Value Reference Range Interpretation Comments Calcium Lvl (test code = Calcium Lvl) 8.9 8.5-10.5 [facility]2019-09-14 08:47:00 Test Item Value Reference Range Interpretation Comments eGFR (test code = eGFR) 130 [facility]2019-09-14 08:47:00 Test Item Value Reference Range Interpretation Comments Magnesium Lvl (test code = Magnesium 1.7 1.8-2.4 Lvl) [facility]2019-09-14 08:47:00 Test Item Value Reference Range Interpretation Comments Phosphorus (test code = Phosphorus) 2.5 2.5-4.5 [facility]2019-09-14 08:47:00 Test Item Value Reference Range Interpretation Comments Glucose Lvl (test code = Glucose Lvl) 87 70-99 [facility]2019-09-14 08:47:00 Test Item Value Reference Range Interpretation Comments BUN (test code = BUN) 5 7-22 [facility]2019-09-14 08:47:00 Test Item Value Reference Range Interpretation Comments Creatinine Lvl (test code = Creatinine 0.37 0.50-1.40 Lvl) [facility]2019-09-14 08:47:00 Test Item Value Reference Range Interpretation Comments Sodium Lvl (test code = Sodium Lvl) 142 135-145 [facility]2019-09-14 08:47:00 Test Item Value Reference Range Interpretation Comments Potassium Lvl (test code = Potassium 3.4 3.5-5.1 Lvl) [facility]2019-09-14 08:47:00 Test Item Value Reference Range Interpretation Comments Chloride Lvl (test code = Chloride Lvl) 103 95-109 [facility]2019-09-14 08:47:00 Test Item Value Reference Range Interpretation Comments CO2 (test code = CO2) 33 24-32 [facility]2019-09-14 08:47:00 Test Item Value Reference Range Interpretation Comments AGAP (test code = AGAP) 9.4 10.0-20.0 [facility]2019-09-14 08:47:00 Test Item Value Reference Range Interpretation Comments Phosphorus (test code = Phosphorus) 2.5 2.5-4.5 [facility]2019-09-14 08:47:00 Test Item Value Reference Range Interpretation Comments Calcium Lvl (test code = Calcium Lvl) 8.9 8.5-10.5 [facility]2019-09-14 08:47:00 Test Item Value Reference Range Interpretation Comments Glucose Lvl (test code = Glucose Lvl) 87 70-99 [facility]2019-09-14 08:47:00 Test Item Value Reference Range Interpretation Comments BUN (test code = BUN) 5 7-22 [facility]2019-09-14 08:47:00 Test Item Value Reference Range Interpretation Comments Creatinine Lvl (test code = Creatinine 0.37 0.50-1.40 Lvl) [facility]2019-09-14 08:47:00 Test Item Value Reference Range Interpretation Comments Sodium Lvl (test code = Sodium Lvl) 142 135-145 [facility]2019-09-14 08:47:00 Test Item Value Reference Range Interpretation Comments Potassium Lvl (test code = Potassium 3.4 3.5-5.1 Lvl) [facility]2019-09-14 08:47:00 Test Item Value Reference Range Interpretation Comments Chloride Lvl (test code = Chloride Lvl) 103 95-109 [facility]2019-09-14 08:47:00 Test Item Value Reference Range Interpretation Comments CO2 (test code = CO2) 33 24-32 [facility]2019-09-14 08:47:00 Test Item Value Reference Range Interpretation Comments AGAP (test code = AGAP) 9.4 10.0-20.0 [facility]2019-09-14 08:47:00 Test Item Value Reference Range Interpretation Comments Calcium Lvl (test code = Calcium Lvl) 8.9 8.5-10.5 [facility]2019-09-14 08:47:00 Test Item Value Reference Range Interpretation Comments eGFR (test code = eGFR) 130 [facility]2019-09-14 08:47:00 Test Item Value Reference Range Interpretation Comments eGFR (test code = eGFR) 130 [facility]2019-09-14 08:47:00 Test Item Value Reference Range Interpretation Comments Magnesium Lvl (test code = Magnesium 1.7 1.8-2.4 Lvl) [facility]2019-09-14 08:47:00 Test Item Value Reference Range Interpretation Comments Magnesium Lvl (test code = Magnesium 1.7 1.8-2.4 Lvl) [facility]2019-09-14 08:47:00 Test Item Value Reference Range Interpretation Comments Phosphorus (test code = Phosphorus) 2.5 2.5-4.5 [facility]2019-09-14 08:47:00 Test Item Value Reference Range Interpretation Comments Glucose Lvl (test code = Glucose Lvl) 87 70-99 [facility]2019-09-14 08:47:00 Test Item Value Reference Range Interpretation Comments BUN (test code = BUN) 5 7-22 [facility]2019-09-14 08:47:00 Test Item Value Reference Range Interpretation Comments Creatinine Lvl (test code = Creatinine 0.37 0.50-1.40 Lvl) [facility]2019-09-13 23:56:00 Test Item Value Reference Range Interpretation Comments Phosphorus (test code = Phosphorus) 3.0 2.5-4.5 [id number] 23:56:00 Test Item Value Reference Range Interpretation Comments Potassium Lvl (test code = Potassium 3.9 3.5-5.1 Lvl) [facility]2019-09-13 23:56:00 Test Item Value Reference Range Interpretation Comments Phosphorus (test code = Phosphorus) 3.0 2.5-4.5 [id number] 23:56:00 Test Item Value Reference Range Interpretation Comments Potassium Lvl (test code = Potassium 3.9 3.5-5.1 Lvl) [facility]2019-09-13 23:56:00 Test Item Value Reference Range Interpretation Comments Phosphorus (test code = Phosphorus) 3.0 2.5-4.5 [facility][id number] 23:56:00 Test Item Value Reference Range Interpretation Comments Potassium Lvl (test code = Potassium 3.9 3.5-5.1 Lvl) [facility]2019-09-13 13:46:00 Test Item Value Reference Range Interpretation Comments Albumin Lvl (test code = Albumin Lvl) 3.0 3.5-5.0 [facility]2019-09-13 13:46:00 Test Item Value Reference Range Interpretation Comments Globulin (test code = Globulin) 4.0 2.7-4.2 [facility]2019-09-13 13:46:00 Test Item Value Reference Range Interpretation Comments A/G Ratio (test code = A/G Ratio) 0.8 1 0.7-1.6 [place] 413879-09-13 13:46:00 Test Item Value Reference Range Interpretation Comments ALT (test code = ALT) 40 See_Comment [Auto mated message] The system which ge nerated this result transmit burke reference range : <=65. The reference range was not used to interpr et this result as marleny l/abnormal. [facility]2019-09-13 13:46:00 Test Item Value Reference Range Interpretation Comments AST (test code = AST) 91 See_Comment [Auto mated message] The system which ge nerated this result transmit burke reference range : <=37. The reference range was not used to interpr et this result as marleny l/abnormal. [facility]2019-09-13 13:46:00 Test Item Value Reference Range Interpretation Comments Alk Phos (test code = Alk Phos) 83 39-136 [facility]2019-09-13 13:46:00 Test Item Value Reference Range Interpretation Comments Bili Total (test code = Bili Total) 0.4 0.2-1.3 [facility]2019-09-13 13:46:00 Test Item Value Reference Range Interpretation Comments eGFR (test code = eGFR) 112 [place] 413879-09-13 13:46:00 Test Item Value Reference Range Interpretation Comments Magnesium Lvl (test code = Magnesium 1.4 1.8-2.4 Lvl) [place] 413879-09-13 13:46:00 Test Item Value Reference Range Interpretation Comments Phosphorus (test code = Phosphorus) 0.7 2.5-4.5 [place] 214349-09-13 13:46:00 Test Item Value Reference Range Interpretation Comments WBC (test code = WBC) 4.9 3.7-10.4 [place] [address]-09-13 13:46:00 Test Item Value Reference Range Interpretation Comments RBC (test code = RBC) 3.86 4.20-5.40 [facility]57[facility] 13:46:00 Test Item Value Reference Range Interpretation Comments Hgb (test code = Hgb) 10.7 12.0-16.0 [place] 214349-09-13 13:46:00 Test Item Value Reference Range Interpretation Comments Hct (test code = Hct) 32.6 36.0-48.0 [facility]ZcikgelYYETWZCQDY5883-94-62 13:46:00 Test Item Value Reference Range Interpretation Comments MCV (test code = MCV) 84.5 80.0-98.0 [facility]JlcirpnTFOVNDJNBF2411-00-78 13:46:00 Test Item Value Reference Range Interpretation Comments MCH (test code = MCH) 27.8 pg 27.0-31.0 [facility]anoWdpsxqrPGWCKDDTLS8822-31-87 13:46:00 Test Item Value Reference Range Interpretation Comments MCHC (test code = MCHC) 32.9 32.0-36.0 [facility]anoBmeadnkSHVZKOJCWC4477-53-05 13:46:00 Test Item Value Reference Range Interpretation Comments RDW (test code = RDW) 22.5 11.5-14.5 [facility]anoToehgkwVPNMQWHFBA7333-24-13 13:46:00 Test Item Value Reference Range Interpretation Comments Platelet (test code = Platelet) 113 133-450 [facility]anoGmesyktWNJQFORLAO1286-22-61 13:46:00 Test Item Value Reference Range Interpretation Comments MPV (test code = MPV) 10.4 7.4-10.4 [facility]anoFbpjmylFGFDYOHXVC9666-92-83 13:46:00 Test Item Value Reference Range Interpretation Comments Segs (test code = Segs) 55.6 45.0-75.0 [facility]anoHckdrqjCMZQTUMMQQ6912-95-35 13:46:00 Test Item Value Reference Range Interpretation Comments Lymphocytes (test code = Lymphocytes) 34.1 20.0-40.0 [facility]anoZbwfxtkZGXQFVGAQC0376-03-69 13:46:00 Test Item Value Reference Range Interpretation Comments Monocytes (test code = Monocytes) 7.2 2.0-12.0 [facility]anoVqjamhbEPZNIJTQTK2174-42-82 13:46:00 Test Item Value Reference Range Interpretation Comments Eosinophils (test code = 2.3 See_Comment [A utomated message] The Eosinophils) system which ge nerated this result tra nsmitted reference range : <=4.0. The reference r felicity was not used to int erpret this result as normal/abnormal . [facility]anoWtxohubBYFWSKNUZD9757-50-12 13:46:00 Test Item Value Reference Range Interpretation Comments Basophils (test code = 0.8 See_Comment [Aut omated message] The Basophils) system which ge nerated this result tra nsmitted reference range : <=1.0. The reference r felicity was not used to int erpret this result as normal/abnormal . [facility]anoEzrjgboUNOEJVBQDP6342-22-18 13:46:00 Test Item Value Reference Range Interpretation Comments Neutrophils # (test code = Neutrophils 2.7 1.5-8.1 #) [facility]anoKzbjhekYNYECKLRQC3202-86-63 13:46:00 Test Item Value Reference Range Interpretation Comments Lymphocytes # (test code = Lymphocytes 1.7 1.0-5.5 #) [facility]anoSqrfnzhXWEXFHYFEX0430-00-27 13:46:00 Test Item Value Reference Range Interpretation Comments Monocytes # (test code 0.4 See_Comment [Aut omated message] The = Monocytes #) system which generated this result tra nsmitted reference range : <=0.8. The reference r felicity was not used to int erpret this result as normal/abnormal . [facility]anoRoupkuwSJROOKUFTS4322-34-15 13:46:00 Test Item Value Reference Range Interpretation Comments Eosinophils # (test code 0.1 See_Comment [A utomated message] The = Eosinophils #) system whic h generated this result tra nsmitted reference range : <=0.5. The reference r felicity was not used to int erpret this result as normal/abnormal . [facility]2019-09-13 13:46:00 Test Item Value Reference Range Interpretation Comments Glucose Lvl (test code = Glucose Lvl) 114 70-99 [facility]2019-09-13 13:46:00 Test Item Value Reference Range Interpretation Comments BUN (test code = BUN) 5 7-22 [facility]2019-09-13 13:46:00 Test Item Value Reference Range Interpretation Comments Creatinine Lvl (test code = Creatinine 0.58 0.50-1.40 Lvl) [facility]2019-09-13 13:46:00 Test Item Value Reference Range Interpretation Comments Sodium Lvl (test code = Sodium Lvl) 140 135-145 [facility]2019-09-13 13:46:00 Test Item Value Reference Range Interpretation Comments Potassium Lvl (test code = Potassium 2.7 3.5-5.1 Lvl) [facility]2019-09-13 13:46:00 Test Item Value Reference Range Interpretation Comments Chloride Lvl (test code = Chloride Lvl) 101 95-109 [facility]2019-09-13 13:46:00 Test Item Value Reference Range Interpretation Comments CO2 (test code = CO2) 25 24-32 [place] 413879-09-13 13:46:00 Test Item Value Reference Range Interpretation Comments AGAP (test code = AGAP) 16.7 10.0-20.0 [place] 413879-09-13 13:46:00 Test Item Value Reference Range Interpretation Comments Calcium Lvl (test code = Calcium Lvl) 9.4 8.5-10.5 [facility]2019-09-13 13:46:00 Test Item Value Reference Range Interpretation Comments B/C Ratio (test code = B/C Ratio) 9 1 6-25 [place] 413879-09-13 13:46:00 Test Item Value Reference Range Interpretation Comments Total Protein (test code = Total 7.0 6.4-8.4 Protein) [facility]2019-09-13 13:46:00 Test Item Value Reference Range Interpretation Comments Albumin Lvl (test code = Albumin Lvl) 3.0 3.5-5.0 [place] 413879-09-13 13:46:00 Test Item Value Reference Range Interpretation Comments Globulin (test code = Globulin) 4.0 2.7-4.2 [place] 413879-09-13 13:46:00 Test Item Value Reference Range Interpretation Comments A/G Ratio (test code = A/G Ratio) 0.8 1 0.7-1.6 [place] 413879-09-13 13:46:00 Test Item Value Reference Range Interpretation Comments ALT (test code = ALT) 40 See_Comment [Auto mated message] The system which ge nerated this result transmit burke reference range : <=65. The reference range was not used to interpr et this result as marleny l/abnormal. [place] 413879-09-13 13:46:00 Test Item Value Reference Range Interpretation Comments AST (test code = AST) 91 See_Comment [Auto mated message] The system which ge nerated this result transmit burke reference range : <=37. The reference range was not used to interpr et this result as marleny l/abnormal. [facility]2019-09-13 13:46:00 Test Item Value Reference Range Interpretation Comments Alk Phos (test code = Alk Phos) 83 39-136 [facility]2019-09-13 13:46:00 Test Item Value Reference Range Interpretation Comments Bili Total (test code = Bili Total) 0.4 0.2-1.3 [facility]2019-09-13 13:46:00 Test Item Value Reference Range Interpretation Comments eGFR (test code = eGFR) 112 [facility]2019-09-13 13:46:00 Test Item Value Reference Range Interpretation Comments Magnesium Lvl (test code = Magnesium 1.4 1.8-2.4 Lvl) [facility]2019-09-13 13:46:00 Test Item Value Reference Range Interpretation Comments Phosphorus (test code = Phosphorus) 0.7 2.5-4.5 [facility]anoOcwfhglALIJLVQAER1066-30-65 13:46:00 Test Item Value Reference Range Interpretation Comments WBC (test code = WBC) 4.9 3.7-10.4 [place] 214349-09-13 13:46:00 Test Item Value Reference Range Interpretation Comments RBC (test code = RBC) 3.86 4.20-5.40 [facility]anoAnqjutiHGDSSHVFDB1363-71-78 13:46:00 Test Item Value Reference Range Interpretation Comments Hgb (test code = Hgb) 10.7 12.0-16.0 [facility]anoAxauwexAOPAGCZXGG0802-03-31 13:46:00 Test Item Value Reference Range Interpretation Comments Hct (test code = Hct) 32.6 36.0-48.0 [place] 214349-09-13 13:46:00 Test Item Value Reference Range Interpretation Comments MCV (test code = MCV) 84.5 80.0-98.0 [facility]anoEmvxuegVYDYGJKIIQ0242-94-43 13:46:00 Test Item Value Reference Range Interpretation Comments MCH (test code = MCH) 27.8 pg 27.0-31.0 [facility]anoHvsmqukUOCGRYOQJC1934-16-69 13:46:00 Test Item Value Reference Range Interpretation Comments MCHC (test code = MCHC) 32.9 32.0-36.0 [facility]anoOtuirpzUVTIKTWABV8663-97-76 13:46:00 Test Item Value Reference Range Interpretation Comments RDW (test code = RDW) 22.5 11.5-14.5 [facility]anoXiquieaDEWNTAASAU4173-35-68 13:46:00 Test Item Value Reference Range Interpretation Comments Platelet (test code = Platelet) 113 133-450 [facility]anoNrwwswkRWXCYVDTTU7956-84-52 13:46:00 Test Item Value Reference Range Interpretation Comments MPV (test code = MPV) 10.4 7.4-10.4 [facility]anoOauarfgYJOPXMIHGN8909-77-32 13:46:00 Test Item Value Reference Range Interpretation Comments Segs (test code = Segs) 55.6 45.0-75.0 [facility]anoCacdahqVDECLGUFPP5332-09-31 13:46:00 Test Item Value Reference Range Interpretation Comments Lymphocytes (test code = Lymphocytes) 34.1 20.0-40.0 [facility]anoZnifjevDTFXEDPYAF3328-73-20 13:46:00 Test Item Value Reference Range Interpretation Comments Monocytes (test code = Monocytes) 7.2 2.0-12.0 [facility]anoOzthkffTCDKPBPUTF0774-38-28 13:46:00 Test Item Value Reference Range Interpretation Comments Eosinophils (test code = 2.3 See_Comment [A utomated message] The Eosinophils) system which ge nerated this result tra nsmitted reference range : <=4.0. The reference r felicity was not used to int erpret this result as normal/abnormal . [facility]anoMehpjhzLGNYNSTKKT4993-12-49 13:46:00 Test Item Value Reference Range Interpretation Comments Basophils (test code = 0.8 See_Comment [Aut omated message] The Basophils) system which ge nerated this result tra nsmitted reference range : <=1.0. The reference r felicity was not used to int erpret this result as normal/abnormal . [facility]anoGsppzjfRBVCQABTVT2617-98-86 13:46:00 Test Item Value Reference Range Interpretation Comments Neutrophils # (test code = Neutrophils 2.7 1.5-8.1 #) [facility]anoRwmbbfxVNVFHYCAJO4164-12-27 13:46:00 Test Item Value Reference Range Interpretation Comments Lymphocytes # (test code = Lymphocytes 1.7 1.0-5.5 #) [facility]NsqzxhpCGIUTOVETZ6180-24-05 13:46:00 Test Item Value Reference Range Interpretation Comments Monocytes # (test code 0.4 See_Comment [Aut omated message] The = Monocytes #) system which generated this result tra nsmitted reference range : <=0.8. The reference r felicity was not used to int erpret this result as normal/abnormal . [facility]anoWobxxpaVDFXXRTDJJ5713-26-80 13:46:00 Test Item Value Reference Range Interpretation Comments Eosinophils # (test code 0.1 See_Comment [A utomated message] The = Eosinophils #) system whic h generated this result tra nsmitted reference range : <=0.5. The reference r felicity was not used to int erpret this result as normal/abnormal . [facility]2019-09-13 13:46:00 Test Item Value Reference Range Interpretation Comments Glucose Lvl (test code = Glucose Lvl) 114 70-99 [facility]2019-09-13 13:46:00 Test Item Value Reference Range Interpretation Comments BUN (test code = BUN) 5 7-22 [facility]2019-09-13 13:46:00 Test Item Value Reference Range Interpretation Comments Creatinine Lvl (test code = Creatinine 0.58 0.50-1.40 Lvl) [facility]2019-09-13 13:46:00 Test Item Value Reference Range Interpretation Comments Sodium Lvl (test code = Sodium Lvl) 140 135-145 [facility]2019-09-13 13:46:00 Test Item Value Reference Range Interpretation Comments Potassium Lvl (test code = Potassium 2.7 3.5-5.1 Lvl) [facility]2019-09-13 13:46:00 Test Item Value Reference Range Interpretation Comments Chloride Lvl (test code = Chloride Lvl) 101 95-109 [facility]2019-09-13 13:46:00 Test Item Value Reference Range Interpretation Comments CO2 (test code = CO2) 25 24-32 [facility]2019-09-13 13:46:00 Test Item Value Reference Range Interpretation Comments AGAP (test code = AGAP) 16.7 10.0-20.0 [facility]2019-09-13 13:46:00 Test Item Value Reference Range Interpretation Comments Calcium Lvl (test code = Calcium Lvl) 9.4 8.5-10.5 [place] 413879-09-13 13:46:00 Test Item Value Reference Range Interpretation Comments B/C Ratio (test code = B/C Ratio) 9 1 6-25 [place] 413879-09-13 13:46:00 Test Item Value Reference Range Interpretation Comments Total Protein (test code = Total 7.0 6.4-8.4 Protein) [facility]2019-09-13 13:46:00 Test Item Value Reference Range Interpretation Comments Total Protein (test code = Total 7.0 6.4-8.4 Protein) [place] 413879-09-13 13:46:00 Test Item Value Reference Range Interpretation Comments Albumin Lvl (test code = Albumin Lvl) 3.0 3.5-5.0 [place] 413879-09-13 13:46:00 Test Item Value Reference Range Interpretation Comments Globulin (test code = Globulin) 4.0 2.7-4.2 [place] 413879-09-13 13:46:00 Test Item Value Reference Range Interpretation Comments A/G Ratio (test code = A/G Ratio) 0.8 1 0.7-1.6 [place] 413879-09-13 13:46:00 Test Item Value Reference Range Interpretation Comments ALT (test code = ALT) 40 See_Comment [Auto mated message] The system which ge nerated this result transmit bukre reference range : <=65. The reference range was not used to interpr et this result as marleny l/abnormal. [facility]2019-09-13 13:46:00 Test Item Value Reference Range Interpretation Comments AST (test code = AST) 91 See_Comment [Auto mated message] The system which ge nerated this result transmit burke reference range : <=37. The reference range was not used to interpr et this result as marleny l/abnormal. [facility]2019-09-13 13:46:00 Test Item Value Reference Range Interpretation Comments Alk Phos (test code = Alk Phos) 83 39-136 [place] 413879-09-13 13:46:00 Test Item Value Reference Range Interpretation Comments Bili Total (test code = Bili Total) 0.4 0.2-1.3 [place] 413879-09-13 13:46:00 Test Item Value Reference Range Interpretation Comments eGFR (test code = eGFR) 112 [facility]2019-09-13 13:46:00 Test Item Value Reference Range Interpretation Comments Magnesium Lvl (test code = Magnesium 1.4 1.8-2.4 Lvl) [facility]2019-09-13 13:46:00 Test Item Value Reference Range Interpretation Comments Phosphorus (test code = Phosphorus) 0.7 2.5-4.5 [facility]anoMxiuvvhBDEEDVQWVV2667-75-54 13:46:00 Test Item Value Reference Range Interpretation Comments WBC (test code = WBC) 4.9 3.7-10.4 [facility]anoKjswhgdMYWPYIVERY0010-50-15 13:46:00 Test Item Value Reference Range Interpretation Comments RBC (test code = RBC) 3.86 4.20-5.40 [facility]anoYhzqedeSIAJAROJZC3880-73-52 13:46:00 Test Item Value Reference Range Interpretation Comments Hgb (test code = Hgb) 10.7 12.0-16.0 [facility]anoMkyurgePMHNMBKDAY2361-77-02 13:46:00 Test Item Value Reference Range Interpretation Comments Hct (test code = Hct) 32.6 36.0-48.0 [facility]anoUplnqtzMKWZEWZUCV0087-11-41 13:46:00 Test Item Value Reference Range Interpretation Comments MCV (test code = MCV) 84.5 80.0-98.0 [facility]anoHkgbfnyNHWFAMSQYB9096-35-43 13:46:00 Test Item Value Reference Range Interpretation Comments MCH (test code = MCH) 27.8 pg 27.0-31.0 [facility]anoXmqgeugOEMGAAFOOI2443-75-02 13:46:00 Test Item Value Reference Range Interpretation Comments MCHC (test code = MCHC) 32.9 32.0-36.0 [facility]anoUiovlzpLQMFCYBBQG9648-34-19 13:46:00 Test Item Value Reference Range Interpretation Comments RDW (test code = RDW) 22.5 11.5-14.5 [facility]anoSfrtijeGHJHWXXAVC4514-67-83 13:46:00 Test Item Value Reference Range Interpretation Comments Platelet (test code = Platelet) 113 133-450 [facility]anoMikpzqqSRXOIRYUAM7546-14-65 13:46:00 Test Item Value Reference Range Interpretation Comments MPV (test code = MPV) 10.4 7.4-10.4 [facility]anoZoswmboHGRZCKEVYS0702-42-59 13:46:00 Test Item Value Reference Range Interpretation Comments Segs (test code = Segs) 55.6 45.0-75.0 [facility]anoMntintlPDBTCULNWA9266-35-10 13:46:00 Test Item Value Reference Range Interpretation Comments Lymphocytes (test code = Lymphocytes) 34.1 20.0-40.0 [facility]anoCzfmxmiJGXQUUIKUD4811-28-52 13:46:00 Test Item Value Reference Range Interpretation Comments Monocytes (test code = Monocytes) 7.2 2.0-12.0 [facility]anoWmhgxkhGTGTXEWLIG7428-35-47 13:46:00 Test Item Value Reference Range Interpretation Comments Eosinophils (test code = 2.3 See_Comment [A utomated message] The Eosinophils) system which ge nerated this result tra nsmitted reference range : <=4.0. The reference r felicity was not used to int erpret this result as normal/abnormal . [facility]anoSxbkirfDEUTZIAJLY9438-23-10 13:46:00 Test Item Value Reference Range Interpretation Comments Basophils (test code = 0.8 See_Comment [Aut omated message] The Basophils) system which ge nerated this result tra nsmitted reference range : <=1.0. The reference r felicity was not used to int erpret this result as normal/abnormal . [facility]anoImoutdpMFTTRFCEGY8580-37-13 13:46:00 Test Item Value Reference Range Interpretation Comments Neutrophils # (test code = Neutrophils 2.7 1.5-8.1 #) [facility]anoBnziploJLLXTLTOKJ1089-93-50 13:46:00 Test Item Value Reference Range Interpretation Comments Lymphocytes # (test code = Lymphocytes 1.7 1.0-5.5 #) [facility]anoAillztwFEIXFYPAOS8442-93-61 13:46:00 Test Item Value Reference Range Interpretation Comments Monocytes # (test code 0.4 See_Comment [Aut omated message] The = Monocytes #) system which generated this result tra nsmitted reference range : <=0.8. The reference r felicity was not used to int erpret this result as normal/abnormal . [facility]anoNpxwupaTUMXZNRGVQ5488-89-29 13:46:00 Test Item Value Reference Range Interpretation Comments Eosinophils # (test code 0.1 See_Comment [A utomated message] The = Eosinophils #) system whic h generated this result tra nsmitted reference range : <=0.5. The reference r felicity was not used to int erpret this result as normal/abnormal . [facility]woodXZERES ZJRCQ0141-18-08 13:46:00 Test Item Value Reference Range Interpretation Comments Glucose Lvl (test code = Glucose Lvl) 114 70-99 [facility] [id number] 13:46:00 Test Item Value Reference Range Interpretation Comments BUN (test code = BUN) 5 7-22 [facility] [id number] 13:46:00 Test Item Value Reference Range Interpretation Comments Creatinine Lvl (test code = Creatinine 0.58 0.50-1.40 Lvl) [facility] HospitalClarityRayFORMERLY [facility] CENTERZEXLZ8749-49-45 13:46:00 Test Item Value Reference Range Interpretation Comments Sodium Lvl (test code = Sodium Lvl) 140 135-145 [facility] [id number] 13:46:00 Test Item Value Reference Range Interpretation Comments Potassium Lvl (test code = Potassium 2.7 3.5-5.1 Lvl) [facility] [id number] 13:46:00 Test Item Value Reference Range Interpretation Comments Chloride Lvl (test code = Chloride Lvl) 101 95-109 [facility] [id number] 13:46:00 Test Item Value Reference Range Interpretation Comments CO2 (test code = CO2) 25 24-32 [facility]woodXZERES [id number] 13:46:00 Test Item Value Reference Range Interpretation Comments AGAP (test code = AGAP) 16.7 10.0-20.0 [facility] [id number] 13:46:00 Test Item Value Reference Range Interpretation Comments Calcium Lvl (test code = Calcium Lvl) 9.4 8.5-10.5 [facility] [id number] 13:46:00 Test Item Value Reference Range Interpretation Comments B/C Ratio (test code = B/C Ratio) 9 1 6-25 [facility]woodCARDIAC TLIIJGI8727-84-11 11:47:00 Test Item Value Reference Range Interpretation Comments Troponin-I (test code no gt See_Comment [Auto mated message] The = Troponin-I) system which g enerated this result transmit burke reference range : <=0.40. The reference r felicity was not used to interpr et this result as marleny l/abnormal. [facility]2019-09-11 11:47:00 Test Item Value Reference Range Interpretation Comments Magnesium Lvl (test code = Magnesium 1.7 1.8-2.4 Lvl) [facility]2019-09-11 11:47:00 Test Item Value Reference Range Interpretation Comments Glucose Lvl (test code = Glucose Lvl) 83 70-99 [facility]2019-09-11 11:47:00 Test Item Value Reference Range Interpretation Comments BUN (test code = BUN) 3 7-22 [facility]2019-09-11 11:47:00 Test Item Value Reference Range Interpretation Comments Creatinine Lvl (test code = Creatinine 0.52 0.50-1.40 Lvl) [facility]2019-09-11 11:47:00 Test Item Value Reference Range Interpretation Comments Sodium Lvl (test code = Sodium Lvl) 135 135-145 [facility]2019-09-11 11:47:00 Test Item Value Reference Range Interpretation Comments Chloride Lvl (test code = Chloride Lvl) 99 95-109 [facility]2019-09-11 11:47:00 Test Item Value Reference Range Interpretation Comments CO2 (test code = CO2) 24 24-32 [facility]2019-09-11 11:47:00 Test Item Value Reference Range Interpretation Comments Calcium Lvl (test code = Calcium Lvl) 9.5 8.5-10.5 [facility]2019-09-11 11:47:00 Test Item Value Reference Range Interpretation Comments eGFR (test code = eGFR) 117 [facility]2019-09-11 11:47:00 Test Item Value Reference Range Interpretation Comments AGAP (test code = AGAP) 15.1 10.0-20.0 [facility]anoNcivwkcPSBWMWVXQQ6803-81-48 11:47:00 Test Item Value Reference Range Interpretation Comments Plt Morph (test code = Normal (04/04/19 6:47 Plt Morph) AM) [facility]anoRacgegkPEVAKFXQPU6410-96-07 11:47:00 Test Item Value Reference Range Interpretation Comments Segs (test code = Segs) 62.5 45.0-75.0 [facility]anoVzdgvobMROJKRZBYE5160-03-14 11:47:00 Test Item Value Reference Range Interpretation Comments Lymphocytes (test code = Lymphocytes) 25.6 20.0-40.0 [facility]anoKllonbvIYCGUBFCRH4460-33-00 11:47:00 Test Item Value Reference Range Interpretation Comments Monocytes (test code = Monocytes) 10.3 2.0-12.0 [facility]anoWlmigwdYCRBTPIMSP9834-28-00 11:47:00 Test Item Value Reference Range Interpretation Comments Eosinophils (test code = 1.2 See_Comment [A utomated message] The Eosinophils) system which ge nerated this result tra nsmitted reference range : <=4.0. The reference r felicity was not used to int erpret this result as normal/abnormal . [facility]anoKyersniYJYVRZJGYG7327-97-33 11:47:00 Test Item Value Reference Range Interpretation Comments Basophils (test code = 0.4 See_Comment [Aut omated message] The Basophils) system which ge nerated this result tra nsmitted reference range : <=1.0. The reference r felicity was not used to int erpret this result as normal/abnormal . [facility]anoArctfnjQDLFNJVBAL3937-23-07 11:47:00 Test Item Value Reference Range Interpretation Comments Neutrophils # (test code = Neutrophils 2.9 1.5-8.1 #) [facility]anoUeunawqVMCJEILWWQ7897-46-28 11:47:00 Test Item Value Reference Range Interpretation Comments Lymphocytes # (test code = Lymphocytes 1.2 1.0-5.5 #) [facility]anoAytbwoiWTVWASEHVM9740-32-05 11:47:00 Test Item Value Reference Range Interpretation Comments Monocytes # (test code 0.5 See_Comment [Aut omated message] The = Monocytes #) system which generated this result tra nsmitted reference range : <=0.8. The reference r felicity was not used to int erpret this result as normal/abnormal . [facility]anoWgoqntjMRONKXEUWH5375-36-51 11:47:00 Test Item Value Reference Range Interpretation Comments Eosinophils # (test code 0.1 See_Comment [A utomated message] The = Eosinophils #) system whic h generated this result tra nsmitted reference range : <=0.5. The reference r felicity was not used to int erpret this result as normal/abnormal . [facility]anoRocqbnnKXZHRUXEDA7862-72-45 11:47:00 Test Item Value Reference Range Interpretation Comments Anisocyte (test code = 1+ *ABN*(04/04/19 Anisocyte) 6:47 AM) [facility]anoBdylmxeDIHMQYZVVJ9626-88-74 11:47:00 Test Item Value Reference Range Interpretation Comments Macrocyte (test code = 1+ *ABN*(04/04/19 Macrocyte) 6:47 AM) [facility]anoSzitkpvXRXTQGXCLM5952-77-13 11:47:00 Test Item Value Reference Range Interpretation Comments Microcyte (test code = 1+ *ABN*(04/04/19 Microcyte) 6:47 AM) [facility]anoThupdhxHUQTZBMVFX4142-25-67 11:47:00 Test Item Value Reference Range Interpretation Comments Spherocyte (test code = Rare *ABN*(04/04/19 Spherocyte) 6:47 AM) [facility]anoLzyieqcGLXAJDAWNA4861-33-61 11:47:00 Test Item Value Reference Range Interpretation Comments WBC (test code = WBC) 4.6 3.7-10.4 [facility]anoBhdbdsxGRBPUQGBDJ9673-79-38 11:47:00 Test Item Value Reference Range Interpretation Comments RBC (test code = RBC) 3.94 4.20-5.40 [facility]anoKhlovodINCUXPMBFU2171-24-40 11:47:00 Test Item Value Reference Range Interpretation Comments Hgb (test code = Hgb) 10.9 12.0-16.0 [facility]anoVmkbbzeSYQRFSJWQJ8956-91-89 11:47:00 Test Item Value Reference Range Interpretation Comments Hct (test code = Hct) 33.5 36.0-48.0 [facility]anoIrfuxhhOCOXGFWUBJ5875-21-03 11:47:00 Test Item Value Reference Range Interpretation Comments MCV (test code = MCV) 85.0 80.0-98.0 [facility]anoFznppcxNHPNEUNHWU8876-31-11 11:47:00 Test Item Value Reference Range Interpretation Comments MCH (test code = MCH) 27.7 pg 27.0-31.0 [facility]anoYludnjsRFZHBNNMZD5255-47-75 11:47:00 Test Item Value Reference Range Interpretation Comments MCHC (test code = MCHC) 32.6 32.0-36.0 [facility]anoEwfljrwKKQRGFEBKI0359-78-40 11:47:00 Test Item Value Reference Range Interpretation Comments RDW (test code = RDW) 22.8 11.5-14.5 [facility]woodWuilxnrMVJVLTYWOK4208-63-27 11:47:00 Test Item Value Reference Range Interpretation Comments Platelet (test code = Platelet) 108 133-450 [facility] GladwinCebakczEFNYWBXRHT5095-30-47 11:47:00 Test Item Value Reference Range Interpretation Comments MPV (test code = MPV) 8.1 7.4-10.4 [facility]woodCARDIAC KVYDBMK1777-53-75 11:47:00 Test Item Value Reference Range Interpretation Comments Troponin-I (test code no gt See_Comment [Auto mated message] The = Troponin-I) system which g enerated this result transmit burke reference range : <=0.40. The reference r felicity was not used to interpr et this result as marleny l/abnormal. [facility]2019-09-11 11:47:00 Test Item Value Reference Range Interpretation Comments Magnesium Lvl (test code = Magnesium 1.7 1.8-2.4 Lvl) [facility]2019-09-11 11:47:00 Test Item Value Reference Range Interpretation Comments Glucose Lvl (test code = Glucose Lvl) 83 70-99 [facility]2019-09-11 11:47:00 Test Item Value Reference Range Interpretation Comments BUN (test code = BUN) 3 7-22 [facility]2019-09-11 11:47:00 Test Item Value Reference Range Interpretation Comments Creatinine Lvl (test code = Creatinine 0.52 0.50-1.40 Lvl) [facility]2019-09-11 11:47:00 Test Item Value Reference Range Interpretation Comments Sodium Lvl (test code = Sodium Lvl) 135 135-145 [facility]2019-09-11 11:47:00 Test Item Value Reference Range Interpretation Comments Chloride Lvl (test code = Chloride Lvl) 99 95-109 [facility]2019-09-11 11:47:00 Test Item Value Reference Range Interpretation Comments CO2 (test code = CO2) 24 24-32 [facility]2019-09-11 11:47:00 Test Item Value Reference Range Interpretation Comments Calcium Lvl (test code = Calcium Lvl) 9.5 8.5-10.5 [facility]2019-09-11 11:47:00 Test Item Value Reference Range Interpretation Comments eGFR (test code = eGFR) 117 [facility]2019-09-11 11:47:00 Test Item Value Reference Range Interpretation Comments AGAP (test code = AGAP) 15.1 10.0-20.0 [facility]anoIjspkxoRIBPSJHUWN2257-44-49 11:47:00 Test Item Value Reference Range Interpretation Comments Plt Morph (test code = Normal (04/04/19 6:47 Plt Morph) AM) [facility]anoWvgmdtnKHYUEXAWKE0833-27-24 11:47:00 Test Item Value Reference Range Interpretation Comments Segs (test code = Segs) 62.5 45.0-75.0 [facility]anoWxvttddOSCVTHOCZV1960-38-45 11:47:00 Test Item Value Reference Range Interpretation Comments Lymphocytes (test code = Lymphocytes) 25.6 20.0-40.0 [facility]anoPrnmkjvVLTIQFJKAT6514-28-44 11:47:00 Test Item Value Reference Range Interpretation Comments Monocytes (test code = Monocytes) 10.3 2.0-12.0 [facility]anoNxmjifrBVPXAOXWQN7585-58-15 11:47:00 Test Item Value Reference Range Interpretation Comments Eosinophils (test code = 1.2 See_Comment [A utomated message] The Eosinophils) system which ge nerated this result tra nsmitted reference range : <=4.0. The reference r felicity was not used to int erpret this result as normal/abnormal . [facility]anoRbphjsyFJNSJPZARO4907-28-63 11:47:00 Test Item Value Reference Range Interpretation Comments Basophils (test code = 0.4 See_Comment [Aut omated message] The Basophils) system which ge nerated this result tra nsmitted reference range : <=1.0. The reference r felicity was not used to int erpret this result as normal/abnormal . [facility]anoMynqvktQEXSFVNAMD6435-06-87 11:47:00 Test Item Value Reference Range Interpretation Comments Neutrophils # (test code = Neutrophils 2.9 1.5-8.1 #) [facility]anoCppdmkjDLLMMBITCJ8859-17-06 11:47:00 Test Item Value Reference Range Interpretation Comments Lymphocytes # (test code = Lymphocytes 1.2 1.0-5.5 #) [facility]anoHvslpckNBILGSBMXQ6863-77-31 11:47:00 Test Item Value Reference Range Interpretation Comments Monocytes # (test code 0.5 See_Comment [Aut omated message] The = Monocytes #) system which generated this result tra nsmitted reference range : <=0.8. The reference r felicity was not used to int erpret this result as normal/abnormal . [facility]anoAynrrszNMXLJELPIB5034-70-67 11:47:00 Test Item Value Reference Range Interpretation Comments Eosinophils # (test code 0.1 See_Comment [A utomated message] The = Eosinophils #) system whic h generated this result tra nsmitted reference range : <=0.5. The reference r felicity was not used to int erpret this result as normal/abnormal . [facility]anoRevcjtrUUGCCWSQBZ4206-67-25 11:47:00 Test Item Value Reference Range Interpretation Comments Anisocyte (test code = 1+ *ABN*(04/04/19 Anisocyte) 6:47 AM) [facility]anoWauraznEDFNWMIOLK1249-69-01 11:47:00 Test Item Value Reference Range Interpretation Comments Macrocyte (test code = 1+ *ABN*(04/04/19 Macrocyte) 6:47 AM) [facility]anoTffmdzdDBAFTBIZHA1401-94-93 11:47:00 Test Item Value Reference Range Interpretation Comments Microcyte (test code = 1+ *ABN*(04/04/19 Microcyte) 6:47 AM) [facility]anoExvpwtmUZIQGKJWXM0339-55-26 11:47:00 Test Item Value Reference Range Interpretation Comments Spherocyte (test code = Rare *ABN*(04/04/19 Spherocyte) 6:47 AM) [facility]anoTagplyrCWMNDKYXOU6924-30-19 11:47:00 Test Item Value Reference Range Interpretation Comments WBC (test code = WBC) 4.6 3.7-10.4 [facility]anoEgdszphXYVCYHQWHV3590-43-86 11:47:00 Test Item Value Reference Range Interpretation Comments RBC (test code = RBC) 3.94 4.20-5.40 [facility]anoIqpszobRLGJRQAOEL6761-65-92 11:47:00 Test Item Value Reference Range Interpretation Comments Hgb (test code = Hgb) 10.9 12.0-16.0 [facility] PlanoQkqywsbQDVWCACCPR1727-84-15 11:47:00 Test Item Value Reference Range Interpretation Comments Hct (test code = Hct) 33.5 36.0-48.0 [facility]anoKgzqqkqYPXQECOAEC3543-92-24 11:47:00 Test Item Value Reference Range Interpretation Comments MCV (test code = MCV) 85.0 80.0-98.0 [facility]woodUpytznqPCWWVLVVWX9493-65-28 11:47:00 Test Item Value Reference Range Interpretation Comments MCH (test code = MCH) 27.7 pg 27.0-31.0 [facility] GladwinPyjolteSBEOXFAMBG9903-09-28 11:47:00 Test Item Value Reference Range Interpretation Comments MCHC (test code = MCHC) 32.6 32.0-36.0 [facility] PlanoIpersicBGQVKSVTCK9042-07-23 11:47:00 Test Item Value Reference Range Interpretation Comments RDW (test code = RDW) 22.8 11.5-14.5 [facility] GladwinMemyruyQMHWOACFPC1490-35-93 11:47:00 Test Item Value Reference Range Interpretation Comments Platelet (test code = Platelet) 108 133-450 [facility] GladwinXeentidITRXIWHSKA7292-62-22 11:47:00 Test Item Value Reference Range Interpretation Comments MPV (test code = MPV) 8.1 7.4-10.4 [facility]woodCARDIAC EVBSFBA7499-27-77 11:47:00 Test Item Value Reference Range Interpretation Comments Troponin-I (test code no gt See_Comment [Auto mated message] The = Troponin-I) system which g enerated this result transmit burke reference range : <=0.40. The reference r felicity was not used to interpr et this result as marleny l/abnormal. [facility] KingwoodXZERES LMEEJ2444-53-37 11:47:00 Test Item Value Reference Range Interpretation Comments Magnesium Lvl (test code = Magnesium 1.7 1.8-2.4 Lvl) [facility]2019-09-11 11:47:00 Test Item Value Reference Range Interpretation Comments Glucose Lvl (test code = Glucose Lvl) 83 70-99 [facility] [id number] 11:47:00 Test Item Value Reference Range Interpretation Comments BUN (test code = BUN) 3 7-22 [facility]2019-09-11 11:47:00 Test Item Value Reference Range Interpretation Comments Creatinine Lvl (test code = Creatinine 0.52 0.50-1.40 Lvl) [facility]2019-09-11 11:47:00 Test Item Value Reference Range Interpretation Comments Sodium Lvl (test code = Sodium Lvl) 135 135-145 [facility]2019-09-11 11:47:00 Test Item Value Reference Range Interpretation Comments Chloride Lvl (test code = Chloride Lvl) 99 95-109 [facility]2019-09-11 11:47:00 Test Item Value Reference Range Interpretation Comments CO2 (test code = CO2) 24 24-32 [facility]2019-09-11 11:47:00 Test Item Value Reference Range Interpretation Comments Calcium Lvl (test code = Calcium Lvl) 9.5 8.5-10.5 [facility]2019-09-11 11:47:00 Test Item Value Reference Range Interpretation Comments eGFR (test code = eGFR) 117 [facility]2019-09-11 11:47:00 Test Item Value Reference Range Interpretation Comments AGAP (test code = AGAP) 15.1 10.0-20.0 [facility]FBTO[facility]PEVYY9850[facility] 11:47:00 Test Item Value Reference Range Interpretation Comments Plt Morph (test code = Normal (04/04/19 6:47 Plt Morph) AM) [facility]anoDsqrmdvFUHBZCSLKO0592-32-83 11:47:00 Test Item Value Reference Range Interpretation Comments Segs (test code = Segs) 62.5 45.0-75.0 [facility]anoVsgwlipIRIALSUXYJ2901-96-73 11:47:00 Test Item Value Reference Range Interpretation Comments Lymphocytes (test code = Lymphocytes) 25.6 20.0-40.0 [facility]anoLuauhbbIEQFGIHQES3576-85-51 11:47:00 Test Item Value Reference Range Interpretation Comments Monocytes (test code = Monocytes) 10.3 2.0-12.0 [facility]anoGxoiiiuGVICAZHOYO0510-96-97 11:47:00 Test Item Value Reference Range Interpretation Comments Eosinophils (test code = 1.2 See_Comment [A utomated message] The Eosinophils) system which ge nerated this result tra nsmitted reference range : <=4.0. The reference r felicity was not used to int erpret this result as normal/abnormal . [facility]anoCpxmafhXAKBYOCZYI0838-29-48 11:47:00 Test Item Value Reference Range Interpretation Comments Basophils (test code = 0.4 See_Comment [Aut omated message] The Basophils) system which ge nerated this result tra nsmitted reference range : <=1.0. The reference r felicity was not used to int erpret this result as normal/abnormal . [facility]anoStwmfvfQYOQSASPQR9248-81-27 11:47:00 Test Item Value Reference Range Interpretation Comments Neutrophils # (test code = Neutrophils 2.9 1.5-8.1 #) [facility]anoFbkoufpFHDZGZJHFZ7870-92-29 11:47:00 Test Item Value Reference Range Interpretation Comments Lymphocytes # (test code = Lymphocytes 1.2 1.0-5.5 #) [facility]anoJnitvzaAVRDTUWLWT4376-09-99 11:47:00 Test Item Value Reference Range Interpretation Comments Monocytes # (test code 0.5 See_Comment [Aut omated message] The = Monocytes #) system which generated this result tra nsmitted reference range : <=0.8. The reference r feliciyt was not used to int erpret this result as normal/abnormal . [facility]anoVpiolmyPTBVIVVUEL0666-35-64 11:47:00 Test Item Value Reference Range Interpretation Comments Eosinophils # (test code 0.1 See_Comment [A utomated message] The = Eosinophils #) system whic h generated this result tra nsmitted reference range : <=0.5. The reference r felicity was not used to int erpret this result as normal/abnormal . [facility]anoUnqngjxBMOMZVJUMQ5193-49-72 11:47:00 Test Item Value Reference Range Interpretation Comments Anisocyte (test code = 1+ *ABN*(04/04/19 Anisocyte) 6:47 AM) [facility]anoUylaeiiFSMGKDJIDY1672-48-17 11:47:00 Test Item Value Reference Range Interpretation Comments Macrocyte (test code = 1+ *ABN*(04/04/19 Macrocyte) 6:47 AM) [facility]anoZunehdeQZDBFZHJGH0816-03-79 11:47:00 Test Item Value Reference Range Interpretation Comments Microcyte (test code = 1+ *ABN*(04/04/19 Microcyte) 6:47 AM) [facility]anoTmkncmhLYCDIMMHFT6747-36-70 11:47:00 Test Item Value Reference Range Interpretation Comments Spherocyte (test code = Rare *ABN*(04/04/19 Spherocyte) 6:47 AM) [facility]anoLcpqxviWQMTIAMBBV5567-16-13 11:47:00 Test Item Value Reference Range Interpretation Comments WBC (test code = WBC) 4.6 3.7-10.4 [facility]winFwkyoabBTRJYCUDEA7072-32-29 11:47:00 Test Item Value Reference Range Interpretation Comments RBC (test code = RBC) 3.94 4.20-5.40 [facility]winKlliyasNYBDWHQSCI4754-36-37 11:47:00 Test Item Value Reference Range Interpretation Comments Hgb (test code = Hgb) 10.9 12.0-16.0 [facility]winCyqxhqeQBPFDXAVRH0121-20-15 11:47:00 Test Item Value Reference Range Interpretation Comments Hct (test code = Hct) 33.5 36.0-48.0 [facility]winKbjnymdHMHKYRHUQK7003-60-90 11:47:00 Test Item Value Reference Range Interpretation Comments MCV (test code = MCV) 85.0 80.0-98.0 [facility] GladwinFbjdalwAELLWRHTDJ3510-44-74 11:47:00 Test Item Value Reference Range Interpretation Comments MCH (test code = MCH) 27.7 pg 27.0-31.0 [facility] GladwinOucsouqDQLBMPOTMJ0729-33-35 11:47:00 Test Item Value Reference Range Interpretation Comments MCHC (test code = MCHC) 32.6 32.0-36.0 [facility]winLzubhliTNBIQMVYIN0726-45-54 11:47:00 Test Item Value Reference Range Interpretation Comments RDW (test code = RDW) 22.8 11.5-14.5 [facility]winQzieazaMYACJMJGSS7141-53-55 11:47:00 Test Item Value Reference Range Interpretation Comments Platelet (test code = Platelet) 108 133-450 [facility] GladwinUdsfnzzBKYMZGHUIA8300-78-82 11:47:00 Test Item Value Reference Range Interpretation Comments MPV (test code = MPV) 8.1 7.4-10.4 [facility] VYZEHMI9358-86-96 02:32:00 Test Item Value Reference Range Interpretation Comments Troponin-I (test code no gt See_Comment [Auto mated message] The = Troponin-I) system which g enerated this result transmit burke reference range : <=0.40. The reference r felicity was not used to interpr et this result as marleny l/abnormal. [facility]woodXZERES BHCYS0845-48-12 02:32:00 Test Item Value Reference Range Interpretation Comments B/C Ratio (test code = B/C Ratio) 4 1 6-25 [place] 413879-09-11 02:32:00 Test Item Value Reference Range Interpretation Comments Globulin (test code = Globulin) 4.2 2.7-4.2 [facility]2019-09-11 02:32:00 Test Item Value Reference Range Interpretation Comments A/G Ratio (test code = A/G Ratio) 0.9 1 0.7-1.6 [place] 413879-09-11 02:32:00 Test Item Value Reference Range Interpretation Comments Total Protein (test code = Total 7.9 6.4-8.4 Protein) [place] 413879-09-11 02:32:00 Test Item Value Reference Range Interpretation Comments Albumin Lvl (test code = Albumin Lvl) 3.7 3.5-5.0 [place] 413879-09-11 02:32:00 Test Item Value Reference Range Interpretation Comments ALT (test code = ALT) 38 See_Comment [Auto mated message] The system which ge nerated this result transmit burke reference range : <=65. The reference range was not used to interpr et this result as marleny l/abnormal. [facility]2019-09-11 02:32:00 Test Item Value Reference Range Interpretation Comments AST (test code = AST) 70 See_Comment [Auto mated message] The system which ge nerated this result transmit burke reference range : <=37. The reference range was not used to interpr et this result as marleny l/abnormal. [facility]2019-09-11 02:32:00 Test Item Value Reference Range Interpretation Comments Alk Phos (test code = Alk Phos) 104 39-136 [facility]2019-09-11 02:32:00 Test Item Value Reference Range Interpretation Comments Bili Total (test code = Bili Total) 2.0 0.2-1.3 [place] 413879-09-11 02:32:00 Test Item Value Reference Range Interpretation Comments Ketone Quantitative (test code = Ketone 3.41 Quantitative) [place] 413879-09-11 02:32:00 Test Item Value Reference Range Interpretation Comments Osmolality (test code = Osmolality) 278 280-300 [place] 413879-09-11 02:32:00 Test Item Value Reference Range Interpretation Comments Lactic Acid Lvl (test code = Lactic 1.0 0.5-2.2 Acid Lvl) [facility]anoCcaphrpITHHMUWWXG9437-01-39 02:32:00 Test Item Value Reference Range Interpretation Comments WBC (test code = WBC) 7.6 3.7-10.4 [facility]anoNgkzztpUMIHQUWEYB1087-19-87 02:32:00 Test Item Value Reference Range Interpretation Comments RBC (test code = RBC) 3.81 4.20-5.40 [facility]anoWtejhqoPFOYVVXCFO4604-25-97 02:32:00 Test Item Value Reference Range Interpretation Comments Hgb (test code = Hgb) 10.6 12.0-16.0 [facility]anoVuylgaiCKKBUVADOU8589-90-87 02:32:00 Test Item Value Reference Range Interpretation Comments Hct (test code = Hct) 32.5 36.0-48.0 [facility]anoTbtfcngOLYLDOEJAC4669-42-26 02:32:00 Test Item Value Reference Range Interpretation Comments MCV (test code = MCV) 85.5 80.0-98.0 [facility]anoEbfagxuVCGWTWZMAB1775-46-49 02:32:00 Test Item Value Reference Range Interpretation Comments MCH (test code = MCH) 27.8 pg 27.0-31.0 [facility]anoTstfipdJNNVDGFDTR6424-70-53 02:32:00 Test Item Value Reference Range Interpretation Comments MCHC (test code = MCHC) 32.6 32.0-36.0 [facility]anoHljadzgNQSBIJPPAN8637-48-52 02:32:00 Test Item Value Reference Range Interpretation Comments RDW (test code = RDW) 22.2 11.5-14.5 [facility]anoWlqjboqXCQNNJGPRX4121-50-92 02:32:00 Test Item Value Reference Range Interpretation Comments Platelet (test code = Platelet) 104 133-450 [facility]anoZzsysxhVRKWJJSBHO6286-78-82 02:32:00 Test Item Value Reference Range Interpretation Comments MPV (test code = MPV) 8.3 7.4-10.4 [facility]anoDxowudrWGJSWOFAQB7752-34-03 02:32:00 Test Item Value Reference Range Interpretation Comments INR (test code = INR) 1.12 1 0.85-1.17 [facility]anoQhrzpzgNLIASITAAM4409-36-88 02:32:00 Test Item Value Reference Range Interpretation Comments PT (test code = PT) 14.2 s 12.0-14.7 [facility]anoWmmklsdEHQDQQHPCO2311-60-98 02:32:00 Test Item Value Reference Range Interpretation Comments PTT (test code = PTT) 27.6 s 22.9-35.8 [facility]anoSsqvajqDZRTJOEPBM8392-18-85 02:32:00 Test Item Value Reference Range Interpretation Comments Plt Morph (test code = Normal (04/03/19 9:32 Plt Morph) PM) [facility]anoJctrsekIJZBTXZLRN9362-04-06 02:32:00 Test Item Value Reference Range Interpretation Comments Segs (test code = Segs) 72.4 45.0-75.0 [facility]anoMxzkxbiPGRROFNMXA3970-17-71 02:32:00 Test Item Value Reference Range Interpretation Comments Lymphocytes (test code = Lymphocytes) 17.6 20.0-40.0 [facility]anoPaqiypxIUXUCSJHSO6310-27-42 02:32:00 Test Item Value Reference Range Interpretation Comments Monocytes (test code = Monocytes) 9.7 2.0-12.0 [facility]anoMmwutxxFAGDQSFEPE7965-13-01 02:32:00 Test Item Value Reference Range Interpretation Comments Eosinophils (test code = 0.1 See_Comment [A utomated message] The Eosinophils) system which ge nerated this result tra nsmitted reference range : <=4.0. The reference r felicity was not used to int erpret this result as normal/abnormal . [facility]anoAhvgakpWGAQTBPBXU8591-58-40 02:32:00 Test Item Value Reference Range Interpretation Comments Basophils (test code = 0.2 See_Comment [Aut omated message] The Basophils) system which ge nerated this result tra nsmitted reference range : <=1.0. The reference r felicity was not used to int erpret this result as normal/abnormal . [facility]anoRfxtnzdUULEYJICWC6590-38-95 02:32:00 Test Item Value Reference Range Interpretation Comments Neutrophils # (test code = Neutrophils 5.5 1.5-8.1 #) [facility]anoCqgjyhyCIQAVWPRLP6197-68-07 02:32:00 Test Item Value Reference Range Interpretation Comments Lymphocytes # (test code = Lymphocytes 1.3 1.0-5.5 #) [facility]anoOinyfmmIUQDQJJBJE8732-19-23 02:32:00 Test Item Value Reference Range Interpretation Comments Monocytes # (test code 0.7 See_Comment [Aut omated message] The = Monocytes #) system which generated this result tra nsmitted reference range : <=0.8. The reference r felicity was not used to int erpret this result as normal/abnormal . [facility]ztrcsOFFUQCIOQY7113-12-51 02:32:00 Test Item Value Reference Range Interpretation Comments Ethanol Lvl (test code = Ethanol Lvl) no gt [facility] HospitalWbllnrgQWPPLFOADB5447-66-55 02:32:00 Test Item Value Reference Range Interpretation Comments Etoh (%) (test code = Etoh (%)) no gt [facility]ARDI[facility] IXXRIYF7938-93-38 02:32:00 Test Item Value Reference Range Interpretation Comments Troponin-I (test code no gt See_Comment [Auto mated message] The = Troponin-I) system which g enerated this result transmit burke reference range : <=0.40. The reference r felicity was not used to interpr et this result as marleny l/abnormal. [facility] [employer] [id number] 02:32:00 Test Item Value Reference Range Interpretation Comments B/C Ratio (test code = B/C Ratio) 4 1 6-25 [facility] [id number] 02:32:00 Test Item Value Reference Range Interpretation Comments Globulin (test code = Globulin) 4.2 2.7-4.2 [facility] [employer] [id number] 02:32:00 Test Item Value Reference Range Interpretation Comments A/G Ratio (test code = A/G Ratio) 0.9 1 0.7-1.6 [facility] [employer] [id number] 02:32:00 Test Item Value Reference Range Interpretation Comments Total Protein (test code = Total 7.9 6.4-8.4 Protein) [facility] HIRLK3542-22-68 02:32:00 Test Item Value Reference Range Interpretation Comments Albumin Lvl (test code = Albumin Lvl) 3.7 3.5-5.0 [facility] JRTOJ0509-02-18 02:32:00 Test Item Value Reference Range Interpretation Comments ALT (test code = ALT) 38 See_Comment [Auto mated message] The system which ge nerated this result transmit burke reference range : <=65. The reference range was not used to interpr et this result as marleny l/abnormal. [facility] [employer] [id number] 02:32:00 Test Item Value Reference Range Interpretation Comments AST (test code = AST) 70 See_Comment [Auto mated message] The system which ge nerated this result transmit burke reference range : <=37. The reference range was not used to interpr et this result as marleny l/abnormal. [facility]2019-09-11 02:32:00 Test Item Value Reference Range Interpretation Comments Alk Phos (test code = Alk Phos) 104 39-136 [facility]2019-09-11 02:32:00 Test Item Value Reference Range Interpretation Comments Bili Total (test code = Bili Total) 2.0 0.2-1.3 [facility]2019-09-11 02:32:00 Test Item Value Reference Range Interpretation Comments Ketone Quantitative (test code = Ketone 3.41 Quantitative) [facility]2019-09-11 02:32:00 Test Item Value Reference Range Interpretation Comments Osmolality (test code = Osmolality) 278 280-300 [facility]2019-09-11 02:32:00 Test Item Value Reference Range Interpretation Comments Lactic Acid Lvl (test code = Lactic 1.0 0.5-2.2 Acid Lvl) [facility]anoUhgxslyRPTNAXPNFK8377-15-88 02:32:00 Test Item Value Reference Range Interpretation Comments WBC (test code = WBC) 7.6 3.7-10.4 [facility]anoKcmdqesWTCFDUUUUX4967-83-97 02:32:00 Test Item Value Reference Range Interpretation Comments RBC (test code = RBC) 3.81 4.20-5.40 [facility]anoFszoxrdKHNIGNPQNA9867-94-24 02:32:00 Test Item Value Reference Range Interpretation Comments Hgb (test code = Hgb) 10.6 12.0-16.0 [place] 214349-09-11 02:32:00 Test Item Value Reference Range Interpretation Comments Hct (test code = Hct) 32.5 36.0-48.0 [facility]anoFtyfkzeXXBNYQGUFW8365-64-71 02:32:00 Test Item Value Reference Range Interpretation Comments MCV (test code = MCV) 85.5 80.0-98.0 [place] 214349-09-11 02:32:00 Test Item Value Reference Range Interpretation Comments MCH (test code = MCH) 27.8 pg 27.0-31.0 [facility]anoCplmhdrQMGFNHVPYF5988-59-68 02:32:00 Test Item Value Reference Range Interpretation Comments MCHC (test code = MCHC) 32.6 32.0-36.0 [facility]anoUwzlrgeUTDRLIUZUN4997-69-45 02:32:00 Test Item Value Reference Range Interpretation Comments RDW (test code = RDW) 22.2 11.5-14.5 [facility]anoTzeagfyPEYVAIPRFQ3770-59-56 02:32:00 Test Item Value Reference Range Interpretation Comments Platelet (test code = Platelet) 104 133-450 [facility]anoFckdgplKPEMUVHAYL5573-32-46 02:32:00 Test Item Value Reference Range Interpretation Comments MPV (test code = MPV) 8.3 7.4-10.4 [facility]anoHlssgwuXUKFGAFJLS8928-52-56 02:32:00 Test Item Value Reference Range Interpretation Comments INR (test code = INR) 1.12 1 0.85-1.17 [facility]anoVgvyveoKHFQFDSOVC4061-19-32 02:32:00 Test Item Value Reference Range Interpretation Comments PT (test code = PT) 14.2 s 12.0-14.7 [facility]anoWdnblgbKKTAGFVKCI0463-46-37 02:32:00 Test Item Value Reference Range Interpretation Comments PTT (test code = PTT) 27.6 s 22.9-35.8 [facility]anoThtpwwfMHSYISROXR0594-97-94 02:32:00 Test Item Value Reference Range Interpretation Comments Plt Morph (test code = Normal (04/03/19 9:32 Plt Morph) PM) [facility]anoCglkvemTMZELJWBHT8676-91-63 02:32:00 Test Item Value Reference Range Interpretation Comments Segs (test code = Segs) 72.4 45.0-75.0 [facility]anoHltkpenTHSXHZDJFL3294-22-61 02:32:00 Test Item Value Reference Range Interpretation Comments Lymphocytes (test code = Lymphocytes) 17.6 20.0-40.0 [facility]anoMthhufhNOQCMTCBEZ3124-65-32 02:32:00 Test Item Value Reference Range Interpretation Comments Monocytes (test code = Monocytes) 9.7 2.0-12.0 [facility]anoDyodvnpABOSEAJNKB3226-09-97 02:32:00 Test Item Value Reference Range Interpretation Comments Eosinophils (test code = 0.1 See_Comment [A utomated message] The Eosinophils) system which ge nerated this result tra nsmitted reference range : <=4.0. The reference r felicity was not used to int erpret this result as normal/abnormal . [facility]woodHwlfjneSHQTPVQTYF5039-54-30 02:32:00 Test Item Value Reference Range Interpretation Comments Basophils (test code = 0.2 See_Comment [Aut omated message] The Basophils) system which ge nerated this result tra nsmitted reference range : <=1.0. The reference r felicity was not used to int erpret this result as normal/abnormal . [facility]woodXhtgwsaCUJXUMLZHX4506-68-94 02:32:00 Test Item Value Reference Range Interpretation Comments Neutrophils # (test code = Neutrophils 5.5 1.5-8.1 #) [facility] HospitalQyzzqxsZJTHONXWEW9375-74-04 02:32:00 Test Item Value Reference Range Interpretation Comments Lymphocytes # (test code = Lymphocytes 1.3 1.0-5.5 #) [facility] HospitalHpwmgheVCLJNTTIMU4598-23-59 02:32:00 Test Item Value Reference Range Interpretation Comments Monocytes # (test code 0.7 See_Comment [Aut omated message] The = Monocytes #) system which generated this result tra nsmitted reference range : <=0.8. The reference r felicity was not used to int erpret this result as normal/abnormal . [facility]woodLkzsmhpSRUNRQAVEN5015-89-66 02:32:00 Test Item Value Reference Range Interpretation Comments Ethanol Lvl (test code = Ethanol Lvl) no gt [facility] KingwoodBvbchbhFGLKLGMJQG6608-38-61 02:32:00 Test Item Value Reference Range Interpretation Comments Etoh (%) (test code = Etoh (%)) no gt [facility] HospitalannCARDIAC KHTPPXO0058-97-21 02:32:00 Test Item Value Reference Range Interpretation Comments Troponin-I (test code no gt See_Comment [Auto mated message] The = Troponin-I) system which g enerated this result transmit burke reference range : <=0.40. The reference r felicity was not used to interpr et this result as marleny l/abnormal. [facility] HospitalClarityRayCHEM [id number] 02:32:00 Test Item Value Reference Range Interpretation Comments B/C Ratio (test code = B/C Ratio) 4 1 6-25 [facility] HospitalB[facility] [id number] 02:32:00 Test Item Value Reference Range Interpretation Comments Globulin (test code = Globulin) 4.2 2.7-4.2 [facility]2019-09-11 02:32:00 Test Item Value Reference Range Interpretation Comments A/G Ratio (test code = A/G Ratio) 0.9 1 0.7-1.6 [place] 413879-09-11 02:32:00 Test Item Value Reference Range Interpretation Comments Total Protein (test code = Total 7.9 6.4-8.4 Protein) [place] 413879-09-11 02:32:00 Test Item Value Reference Range Interpretation Comments Albumin Lvl (test code = Albumin Lvl) 3.7 3.5-5.0 [place] 413879-09-11 02:32:00 Test Item Value Reference Range Interpretation Comments ALT (test code = ALT) 38 See_Comment [Auto mated message] The system which ge nerated this result transmit burke reference range : <=65. The reference range was not used to interpr et this result as marleny l/abnormal. [facility]2019-09-11 02:32:00 Test Item Value Reference Range Interpretation Comments AST (test code = AST) 70 See_Comment [Auto mated message] The system which ge nerated this result transmit burke reference range : <=37. The reference range was not used to interpr et this result as marleny l/abnormal. [facility]2019-09-11 02:32:00 Test Item Value Reference Range Interpretation Comments Alk Phos (test code = Alk Phos) 104 39-136 [facility]2019-09-11 02:32:00 Test Item Value Reference Range Interpretation Comments Bili Total (test code = Bili Total) 2.0 0.2-1.3 [place] 413879-09-11 02:32:00 Test Item Value Reference Range Interpretation Comments Ketone Quantitative (test code = Ketone 3.41 Quantitative) [place] 413879-09-11 02:32:00 Test Item Value Reference Range Interpretation Comments Osmolality (test code = Osmolality) 278 280-300 [place] 413879-09-11 02:32:00 Test Item Value Reference Range Interpretation Comments Lactic Acid Lvl (test code = Lactic 1.0 0.5-2.2 Acid Lvl) [facility]anoCfvvmdvHUDOUVLCFQ2530-28-94 02:32:00 Test Item Value Reference Range Interpretation Comments WBC (test code = WBC) 7.6 3.7-10.4 [facility]anoOydpmhdUPJCQSQCHT2133-11-04 02:32:00 Test Item Value Reference Range Interpretation Comments RBC (test code = RBC) 3.81 4.20-5.40 [facility]anoRtzhdkmKNPXKNDVGQ0388-01-83 02:32:00 Test Item Value Reference Range Interpretation Comments Hgb (test code = Hgb) 10.6 12.0-16.0 [facility]anoAljdlneBCESGTIGGX7308-90-79 02:32:00 Test Item Value Reference Range Interpretation Comments Hct (test code = Hct) 32.5 36.0-48.0 [facility]anoZewltbuQCJSRISWHT3020-01-88 02:32:00 Test Item Value Reference Range Interpretation Comments MCV (test code = MCV) 85.5 80.0-98.0 [facility]anoMxocikfQGPMCUREIG1668-90-03 02:32:00 Test Item Value Reference Range Interpretation Comments MCH (test code = MCH) 27.8 pg 27.0-31.0 [facility] PlanoSrucenyWDZVOVJAPT9392-88-59 02:32:00 Test Item Value Reference Range Interpretation Comments MCHC (test code = MCHC) 32.6 32.0-36.0 [id number] 02:32:00 Test Item Value Reference Range Interpretation Comments RDW (test code = RDW) 22.2 11.5-14.5 [id number] 02:32:00 Test Item Value Reference Range Interpretation Comments Platelet (test code = Platelet) 104 133-450 [id number] 02:32:00 Test Item Value Reference Range Interpretation Comments MPV (test code = MPV) 8.3 7.4-10.4 [id number] 02:32:00 Test Item Value Reference Range Interpretation Comments INR (test code = INR) 1.12 1 0.85-1.17 [id number] 02:32:00 Test Item Value Reference Range Interpretation Comments PT (test code = PT) 14.2 s 12.0-14.7 [id number] 02:32:00 Test Item Value Reference Range Interpretation Comments PTT (test code = PTT) 27.6 s 22.9-35.8 [id number] 02:32:00 Test Item Value Reference Range Interpretation Comments Plt Morph (test code = Normal (04/03/19 9:32 Plt Morph) PM) [id number] 02:32:00 Test Item Value Reference Range Interpretation Comments Segs (test code = Segs) 72.4 45.0-75.0 [facility]a[id number] 02:32:00 Test Item Value Reference Range Interpretation Comments Lymphocytes (test code = Lymphocytes) 17.6 20.0-40.0 [id number] 02:32:00 Test Item Value Reference Range Interpretation Comments Monocytes (test code = Monocytes) 9.7 2.0-12.0 [id number] 02:32:00 Test Item Value Reference Range Interpretation Comments Eosinophils (test code = 0.1 See_Comment [A utomated message] The Eosinophils) system which ge nerated this result tra nsmitted reference range : <=4.0. The reference r felicity was not used to int erpret this result as normal/abnormal . [id number] 02:32:00 Test Item Value Reference Range Interpretation Comments Basophils (test code = 0.2 See_Comment [Aut omated message] The Basophils) system which ge nerated this result tra nsmitted reference range : <=1.0. The reference r felicity was not used to int erpret this result as normal/abnormal . [id number] 02:32:00 Test Item Value Reference Range Interpretation Comments Neutrophils # (test code = Neutrophils 5.5 1.5-8.1 #) [id number] 02:32:00 Test Item Value Reference Range Interpretation Comments Lymphocytes # (test code = Lymphocytes 1.3 1.0-5.5 #) [id number] 02:32:00 Test Item Value Reference Range Interpretation Comments Monocytes # (test code 0.7 See_Comment [Aut omated message] The = Monocytes #) system which generated this result tra nsmitted reference range : <=0.8. The reference r felicity was not used to int erpret this result as normal/abnormal . [place] [id number] 02:32:00 Test Item Value Reference Range Interpretation Comments Ethanol Lvl (test code = Ethanol Lvl) no gt [id number] 02:32:00 Test Item Value Reference Range Interpretation Comments Etoh (%) (test code = Etoh (%)) no gt [facility] METABOLIC [id number] 12:36:00 Test Item Value Reference Range Interpretation [...] GFR) formula.Chronic kidney disease is defined as [facility] kidney damageor GFR <60 mL/min/1.73 m2 for >3 months. CREATININE (test code 0.60 mg/dL 0.55-1.02 N Note change in = CREAT) reference range due to change in reagent. BUN/CREATININE RATIO 13.9 10-20 N (test code = BUN/CREA) CALCIUM (test code = 9.1 mg/dL 8.5-10.1 N CA) BASIC METABOLIC [id number] 12:30:00 Test Item Value Reference Range Interpretation [...] code = HCGTRIAGE) SPECIMEN COMMENTS: URINECOMMENTS TO CHIEF TECHNOLOGIST: URINE TESTUrine Test Result: NEGATIVEAre internal controls (presence of a control line & clear background) OK? YLot # of HCG Test Kit: [id number] Date of Kit: 06/23/2020Test Performed by: Marlene Perfomed on: 01/24/19CHEMISTRY 8 [id number] 13:46:00 Test Item Value Reference Range Interpretation [...] >60 H code = GFRBED) CHEMISTRY 8 [id number] 13:46:00 Test Item Value Reference Range Interpretation [...] H (test code = GFRBED) POC LACTIC [id number] 13:40:00 Test Item Value Reference Range Interpretation Comments POC LACTIC ACID (test code = 0.94 MMOL/L 0.4-2.2 N POCLAC) URINALYSIS [id number] 02:02:00 Test Item Value Reference Range Interpretation [...] #/LPF FEW Urine Source? Clean CatchBASIC METABOLIC [id number] 01:55:00 Test Item Value Reference Range Interpretation [...] 7.7 mg/dL 8.5-10.1 L CA) HEPATIC FUNCTION [id number] 01:55:00 Test Item Value Reference Range Interpretation [...] range due ALKP) to change in reagent. [id number] 01:55:00 Test Item Value Reference Range Interpretation Comments LIPASE (test code = LIP) 123 U/L 73.0-393.0 N HCG SERUM [id number] 01:55:00 Test Item Value Reference Range Interpretation Comments HCG SERUM QUAL (test NEGATIVE NEGATIVE This HC GQL test is NOT code = HCGQL) applicable for MALE patients.Check with nurse about probable order error.If Tumor Marker Test needed, nu rse should order test "HCG TU"(Test #550.21011)---- - BASIC METABOLIC [id number] 01:48:00 Test Item Value Reference Range Interpretation [...] code = CA) mg/dL 8.5-10.1 HEPATIC FUNCTION [id number] 01:48:00 Test Item Value Reference Range Interpretation [...] TOTAL (test IUnit/L 45-117 code = ALKP) [id number] 01:48:00 Test Item Value Reference Range Interpretation Comments LIPASE (test code = LIP) U/L 73.0-393.0 HCG SERUM [id number] 01:48:00 Test Item Value Reference Range Interpretation Comments HCG SERUM QUAL (test NEGATIVE NEGATIVE This HC GQL test is NOT code = HCGQL) applicable for MALE patients.Check with nurse about probable order error.If Tumor Marker Test needed, nu rse should order test "HCG TU"(Test #550.73515)---- - [id number] 01:48:00 Test Item Value Reference Range Interpretation Comments MAGNESIUM (test code = MAG) 1.7 mg/dL 1.8-2.4 L BASIC METABOLIC [id number] 01:41:00 Test Item Value Reference Range Interpretation [...] code = CA) mg/dL 8.5-10.1 HEPATIC FUNCTION [id number] 01:41:00 Test Item Value Reference Range Interpretation [...] TOTAL (test IUnit/L 45-117 code = ALKP) [id number] 01:41:00 Test Item Value Reference Range Interpretation Comments LIPASE (test code = LIP) U/L 73.0-393.0 HCG SERUM [id number] 01:41:00 Test Item Value Reference Range Interpretation Comments HCG SERUM QUAL (test NEGATIVE NEGATIVE This HC GQL test is NOT code = HCGQL) applicable for MALE patients.Check with nurse about probable order error.If Tumor Marker Test needed, nu rse should order test "HCG TU"(Test #550.00183)---- - CBC W/O [id number] 01:37:00 Test Item Value Reference Range Interpretation [...]
[2022-06-13] MEDS ORDERED: NA CHLORIDE 0.9% 1,000 ML ONE (08:04)
[2022-06-13] MEDS ORDERED: KETOROLAC 30 MG/ML INJ ONE (08:04)
[2022-06-13] MEDS ORDERED: DIPHENHYDRAMINE 50 MG/ML VIAL ONE (08:04)
[2022-06-13] MEDS ORDERED: METOCLOPRAMIDE 10 MG/2mL INJ ONE (08:04)
[2022-06-13 08:19] LABS: Urine Blood Negative (Negative); Urine Glucose Negative (Negative); Urine Protein Negative (Negative)
--- NOTE | 2022-06-13 08:31 | RAD REPORT ---
EXAM DESCRIPTION: CT - Head Brain Wo Cont - 06/13/2022 8:05 am CLINICAL HISTORY: Headache, new or worsening, positional Headache, drowsiness COMPARISON: Head Brain Wo Cont dated 06/10/2018; Head Brain Wo Cont dated 06/06/2018 TECHNIQUE: All CT scans are performed using dose optimization technique as appropriate and may inclu de automated exposure control or mA/KV adjustment according to patient size. FINDINGS: No intracranial hemorrhage, hydrocephalus or extra-axial fluid collection.No areas of brai n edema or evidence of midline shift. The paranasal sinuses and mastoids are clear. The calvarium is intact. IMPRESSION: No acute intracranial abnormality.
--- NOTE | 2022-06-13 08:53 | RAD REPORT ---
EXAM DESCRIPTION: RAD - Pelvis - 06/13/2022 8:31 am CLINICAL HISTORY: PAIN COMPARISON: Femur Left dated 06/13/2022 FINDINGS: No fracture, dislocation or AVN pattern is observed. Moderate lumbosacral degenerative noé nges.
--- NOTE | 2022-06-13 08:55 | RAD REPORT ---
EXAM DESCRIPTION: RAD - Femur Left - 06/13/2022 8:31 am CLINICAL HISTORY: PAIN COMPARISON: Pelvis dated 06/13/2022 FINDINGS: No fracture or dislocation is seen.
--- NOTE | 2022-06-13 08:58 | EDPHYS ---
Physician Documentation [facility] Name: Diana Watson Age: 46 yrs Sex: Female : 1975 Arrival Date: 06/13/2022 Time: 07:37 Bed 5 Private MD: Bernardo Bardales HPI: 06/13 07:59 This 46 yrs old Female presents to ER via Ambulatory with complaints of noé headache , migraine. 07:59 The patient or guardian reports pain. that occurred at home, sustained from a fall, noé There is no obvious deformity, The patient is able to self ambulate. The patient is able to bear partial body weight. There is no radiation of the patient's discomfort. The complaints affect the left hip and lateral aspect of left thigh. Onset: The symptoms/episode began/occurred yesterday. Modifying factors: The symptoms are alleviated by remaining still, the symptoms are aggravated by any movement. The patient complains of pain to the top of head, forehead, left frontal area and right frontal area. The patient describes the headache as aching, constant. Onset: The symptoms/episode began/occurred this morning, today. Associated signs and symptoms: Pertinent positives: nausea. Historical: - Allergies: 07:43 Ancef (rash); ss - PMHx: 07:43 Alcoholism; Anxiety; Hypertension; mitral valve prolapse; Ulcers; ss - Immunization history:: Client reports receiving the 2nd dose of the Covid vaccine. - Social history:: Smoking status: Patient denies any tobacco usage or history of. - Family history:: not pertinent. ROS: 07:59 Constitutional: Negative for fever, chills, and weight loss, Eyes: Negative for injury, noé pain, redness, and discharge, ENT: Negative for injury, pain, and discharge, Neck: Negative for injury, pain, and swelling, Cardiovascular: Negative for chest pain, palpitations, and edema, Respiratory: Negative for shortness of breath, cough, wheezing, and pleuritic chest pain, Abdomen/GI: Negative for abdominal pain, nausea, vomiting, diarrhea, and constipation, Back: Negative for injury and pain, : Negative for injury, bleeding, discharge, and swelling, Skin: Negative for injury, rash, and discoloration, Psych: Negative for depression, anxiety, suicide ideation, homicidal ideation, and hallucinations, Allergy/Immunology: Negative for hives, rash, and allergies, Endocrine: Negative for neck swelling, polydipsia, polyuria, polyphagia, and marked weight changes, Hematologic/Lymphatic: Negative for swollen nodes, abnormal bleeding, and unusual bruising. 07:59 MS/extremity: Positive for decreased range of motion, pain, of the left hip. 07:59 Neuro: Positive for headache. Exam: 07:59 Constitutional: This is a well developed, well nourished patient who is awake, alert, noé and in no acute distress. Head/Face: Normocephalic, atraumatic. Eyes: Pupils equal round and reactive to light, extra-ocular motions intact. Lids and lashes normal. Conjunctiva and sclera are non-icteric and not injected. Cornea within normal limits. Periorbital areas with no swelling, redness, or edema. ENT: Nares patent. No nasal discharge, no septal abnormalities noted. Tympanic membranes are normal and external auditory canals are clear. Oropharynx with no redness, swelling, or masses, exudates, or evidence of obstruction, uvula midline. Mucous membranes moist. Neck: Trachea midline, no thyromegaly or masses palpated, and no cervical lymphadenopathy. Supple, full range of motion without nuchal rigidity, or vertebral point tenderness. No Meningismus. Chest/axilla: Normal chest wall appearance and motion. Nontender with no deformity. No lesions are appreciated. Cardiovascular: Regular rate and rhythm with a normal S1 and S2. No gallops, murmurs, or rubs. Normal PMI, no JVD. No pulse deficits. Respiratory: Lungs have equal breath sounds bilaterally, clear to auscultation and percussion. No rales, rhonchi or wheezes noted. No increased work of breathing, no retractions or nasal flaring. Abdomen/GI: Soft, non-tender, with normal bowel sounds. No distension or tympany. No guarding or rebound. No evidence of tenderness throughout. Back: No spinal tenderness. No costovertebral tenderness. Full range of motion. Female : Normal external genitalia. Skin: Warm, dry with normal turgor. Normal color with no rashes, no lesions, and no evidence of cellulitis. Psych: Awake, alert, with orientation to person, place and time. Behavior, mood, and affect are within normal limits. 07:59 Musculoskeletal/extremity: ROM: full active range of motion, full passive range of motion, limited active range of motion due to pain, limited passive range of motion due to pain, Circulation is intact in all extremities. Sensation intact. Compartment Syndrome exam of affected extremity: is normal. no numbness, no tingling, no sensation deficit, no palor, no weak pulses, DVT Exam: no swelling, negative Homans' sign noted on exam, no appreciated bluish discoloration, no erythema, no increased warmth, pain, tenderness. Vital Signs: 07:39 BP 144 / 87; Pulse 75; Resp 16; Temp 98.6(TE); Pulse Ox 100% on R/A; Weight 68.04 kg; ss Height 5 ft. 8 in. (172.72 cm); Pain 9/10; 09:15 BP 132 / 84; Pulse 68; Resp 16 S; Pulse Ox 100% on R/A; Pain 9/10; kc6 10:18 BP 103 / 64; Pulse 63; Resp 16 S; Pulse Ox 100% ; kc6 07:39 Body Mass Index 22.81 (68.04 kg, 172.72 cm) [place] Coma Score: 08:02 Eye Response: spontaneous(4). Verbal Response: oriented(5). Motor Response: obeys [facility] commands(6). Total: 15. MDM: 07:53 Patient medically screened. [facility] 08:02 Differential diagnosis: hip fracture, bursitis, arthritis, strain. Data reviewed: vital noé signs, nurses notes, EMS record, lab test result(s), radiologic studies, CT scan, plain films. Data interpreted: cafeteria monitor: rate is 75 beats/min, rhythm is regular, Pulse oximetry: on room air is 100 %. Test interpretation: by ED physician or midlevel provider: plain radiologic studies. Counseling: I had a detailed discussion with the patient and/or guardian regarding: the historical points, exam findings, and any diagnostic results supporting the discharge/admit diagnosis, lab results, radiology results, the need for outpatient follow up, for definitive care, a family practitioner, a neurologist, a orthopedic surgeon. 06/13 07:52 Order name: CBC with Diff; Complete Time: 10:55 [facility] 06/13 07:52 Order name: Comprehensive Metabolic Panel; Complete Time: 10:55 [facility] 06/13 07:52 Order name: UDS [facility] 06/13 07:52 Order name: CT Head Brain wo Cont; Complete Time: 08:56 [facility] 06/13 08:19 Order name: Urine Dipstick-Ancillary; Complete Time: 08:56 EDMS 06/13 08:21 Order name: Urine --Ancillary (enter results); Complete Time: 10:55 eb 06/13 07:52 Order name: Urine Dipstick-Ancillary (obtain specimen); Complete Time: 08:20 [facility] 06/13 07:52 Order name: Urine Test (obtain specimen); Complete Time: 08:20 [facility] 06/13 07:52 Order name: Pelvis XRAY; Complete Time: 08:56 [facility] 06/13 07:52 Order name: Femur Left XRAY; Complete Time: 08:56 [facility] 06/13 07:52 Order name: Oxygen; Complete Time: 07:57 [facility] Administered Medications: 09:20 Drug: Reglan (metoCLOPramide) 10 mg Route: IVP; Site: right antecubital; kc6 09:20 Drug: Benadryl (diphenhydrAMINE) 50 mg Route: IVP; Site: right antecubital; kc6 09:21 Drug: NS 0.9% 1000 ml Route: IV; Rate: 1 bolus; Site: right antecubital; kc6 09:21 Drug: Ketorolac 30 mg Route: IVP; Site: right antecubital; kc6 Disposition Summary: 06/13/22 08:57 Discharge Ordered Location: Home noé Problem: new noé Symptoms: have improved noé Condition: Stable noé Diagnosis - Headache noé - Migraine without aura, not intractable noé - Contusion of left hip noé Followup: noé - With: Private Physician - When: 2 - 3 days - Reason: Recheck today's complaints, Continuance of care, Re-evaluation by your physician Followup: noé - With: - When: 2 - 3 days - Reason: Recheck today's complaints, Re-evaluation by your physician Discharge Instructions: - Discharge Summary Sheet noé - General Headache Without Cause noé - Migraine Headache noé - Hip Pain noé - Migraine Headache, [id number]-[id number] noé - General Headache Without Cause, [id number] noé Forms: - Medication Reconciliation Form noé - Thank You Letter noé - Antibiotic Education noé - Prescription Opioid Use noé Prescriptions: - Ibuprofen 600 mg Oral Tablet - take 1 tablet by ORAL route every 6 hours As needed take with food; 20 tablet; noé Refills: 0, Product Selection Permitted - Zofran 4 mg Oral Tablet - take 1 tablet by ORAL route every 12 hours As needed; 20 tablet; Refills: 0, noé Product Selection Permitted - Fioricet with Codeine [id number] mg Oral capsule - take 1 capsule by ORAL route every 4 hours as needed not to exceed 6 capsules noé per 24hrs; 15 capsule; Refills: 0, Product Selection Permitted Signatures: Dispatcher [employer] Bernardo Disla MD MD cha Smirch, Shelby RN RN ss Magui Ross RN RN kc6
--- NOTE | 2022-06-13 08:58 | ER ---
Nurse's Notes [facility] Name: Diana Watson Age: 46 yrs Sex: Female : 1975 Arrival Date: 06/13/2022 Time: 07:37 Bed 5 Private MD: Diagnosis: Headache;Migraine without aura, not intractable;Contusion of left hip Presentation: 06/13 07:39 Chief complaint: Patient states: Headache that began last night. Coronavirus screen: ss Client denies travel out of the [place] in the last 14 days. Ebola Screen: Patient denies exposure to infectious person. Patient denies travel to an Ebola-affected area in the 21 days before illness onset. Initial Sepsis Screen: Does the patient meet any 2 criteria? No. Patient's initial sepsis screen is negative. Does the patient have a suspected source of infection? No. Patient's initial sepsis screen is negative. Risk Assessment: Do you want to hurt yourself or someone else? Patient reports no desire to harm self or others. Onset of symptoms was June 12, 2022. 07:39 Method Of Arrival: Ambulatory 07:39 Acuity: HUAN 3 ss Historical: - Allergies: 07:43 Ancef (rash); ss - PMHx: 07:43 Alcoholism; Anxiety; Hypertension; mitral valve prolapse; Ulcers; ss - Immunization history:: Client reports receiving the 2nd dose of the Covid vaccine. - Social history:: Smoking status: Patient denies any tobacco usage or history of. - Family history:: not pertinent. Screenin:05 Abuse screen: Denies threats or abuse. Denies injuries from another. Nutritional kc6 screening: No deficits noted. Tuberculosis screening: No symptoms or risk factors identified. Fall Risk No fall in past 12 months (0 pts). No secondary diagnosis (0 pts). IV access (20 points). Ambulatory Aid- None/Bed Rest/Nurse Assist (0 pts). Gait- Normal/Bed Rest/Wheelchair (0 pts) Mental Status- Oriented to own ability (0 pts). Total Feldman Fall Scale indicates No Risk (0-24 pts). Assessment: 09:00 General: Appears in no apparent distress. comfortable, Behavior is calm, cooperative, kc6 appropriate for age. Pain: Complains of pain in head and right hip Pain does not radiate. Pain currently is 9 out of 10 on a pain scale. Quality of pain is described as pressure, sharp, throbbing, Pain began gradually, Is continuous, Alleviated by nothing. Aggravated by exercise, increased activity, repositioning, weight bearing, Also complains of no other associated symptoms. Neuro: [place]ras Agitation-Sedation Scale (RASS): 0 - Alert and Calm Level of Consciousness is awake, alert, obeys commands, Oriented to person, place, time, situation, Appropriate for age. Cardiovascular: Heart tones S1 S2 present Capillary refill < 3 seconds. Respiratory: Airway is patent Trachea midline Respiratory effort is even, unlabored, Respiratory pattern is regular, symmetrical, Breath sounds are clear bilaterally. GI: No signs and/or symptoms were reported involving the gastrointestinal system. : No signs and/or symptoms were reported regarding the genitourinary system. EENT: No signs and/or symptoms were reported regarding the EENT system. Derm: No signs and/or symptoms reported regarding the dermatologic system. Skin is intact, Skin is pink, warm \T\ dry. Musculoskeletal: No signs and/or symptoms reported regarding the musculoskeletal system. Circulation, motion, and sensation intact. Capillary refill < 3 seconds, Range of motion: intact in all extremities. 09:18 Reassessment: discharge pending results. jd3 10:17 Reassessment: Patient appears in no apparent distress at this time. No changes from kc6 previously documented assessment. Patient and/or family updated on plan of care and expected duration. Pain level reassessed. Patient is alert, oriented x 3, equal unlabored respirations, skin warm/dry/pink. 11:05 Reassessment: Patient appears in no apparent distress at this time. No changes from kc6 previously documented assessment. Patient and/or family updated on plan of care and expected duration. Pain level reassessed. Patient is alert, oriented x 3, equal unlabored respirations, skin warm/dry/pink. Vital Signs: 07:39 BP 144 / 87; Pulse 75; Resp 16; Temp 98.6(TE); Pulse Ox 100% on R/A; Weight 68.04 kg; ss Height 5 ft. 8 in. (172.72 cm); Pain 9/10; 09:15 BP 132 / 84; Pulse 68; Resp 16 S; Pulse Ox 100% on R/A; Pain 9/10; kc6 10:18 BP 103 / 64; Pulse 63; Resp 16 S; Pulse Ox 100% ; kc6 07:39 Body Mass Index 22.81 (68.04 kg, 172.72 cm) [place] Coma Score: 08:02 Eye Response: spontaneous(4). Verbal Response: oriented(5). Motor Response: obeys noé commands(6). Total: 15. ED Course: 07:37 Patient arrived in ED. eb 07:43 Triage completed. ss 07:43 Arm band placed on right wrist. ss 07:49 Bernardo Hoyos MD is Attending Physician. noé 07:56 Magui Ross, CARLY is Primary Nurse. kc6 08:06 CT Head Brain wo Cont In Process Unspecified. EDMS 08:20 UDS Sent. kc6 08:33 Pelvis XRAY In Process Unspecified. EDMS 08:33 Femur Left XRAY In Process Unspecified. EDMS 08:56 Christopher Bauer MD is Referral Physician. noé 09:10 Accessed peripheral vein via ultrasound, utilizing dynamic ultrasound technique using jd3 20G Nexia IV catheter ,sterile technique, per hospital protocol. Clean \T\ dry. Dressing intact. Good blood return. Flushes easily. 11:05 No provider procedures requiring assistance completed. IV discontinued, intact, kc6 bleeding controlled, No redness/swelling at site. Pressure dressing applied. 11:06 Patient has correct armband on for positive identification. Placed in gown. Bed in low kc6 position. Call light in reach. Side rails up X2. Administered Medications: 09:20 Drug: Reglan (metoCLOPramide) 10 mg Route: IVP; Site: right antecubital; kc6 09:20 Drug: Benadryl (diphenhydrAMINE) 50 mg Route: IVP; Site: right antecubital; kc6 09:21 Drug: NS 0.9% 1000 ml Route: IV; Rate: 1 bolus; Site: right antecubital; kc6 09:21 Drug: Ketorolac 30 mg Route: IVP; Site: right antecubital; kc6 Medication: 11:06 VIS not applicable for this client. kc6 Outcome: 08:57 Discharge ordered by . noé 11:06 Discharged to home ambulatory. kc6 11:06 Condition: stable 11:06 Discharge instructions given to patient, Instructed on discharge instructions, follow up and referral plans. medication usage, Demonstrated understanding of instructions, follow-up care, medications, Prescriptions given X 3. 11:06 Patient left the ED. kc6 Signatures: Dispatcher [employer] EDBernardo Lemos MD MD cha Smirch, Shelby, RN RN Arjun Garcias RN RN jd3 Botello, Elizabeth eb Campbell, Kaitlyn, RN RN kc6
[2022-06-13 10:02] LABS: Absolute Lymphocytes (CBC) 2.1 K/uL (0.7-4.9); Hematocrit 42.1 % (36.0-45.0); Lymphocytes % 30.7 % (15.3-44.8); MCV 89.1 fL (80-100); MPV 8.7 fL (7.6-11.3); RBC Red Blood Cell Count 4.72 M/uL (3.86-4.86)
[2022-06-13 10:22] LABS: Bilirubin Total 0.4 mg/dL (0.2-1.0); Potassium 3.3 mmol/L (3.5-5.1); Protein, Total 8.1 g/dL (6.4-8.2)
[2022-06-13 11:09] LABS: Barbiturates NEGATIVE (NEGATIVE); Benzodiazepines NEGATIVE (NEGATIVE); Cocaine NEGATIVE (NEGATIVE); METHAMPHETAM NEGATIVE (NEGATIVE); Methadone X-NORESULT (NEGATIVE); Opiates NEGATIVE (NEGATIVE); Phencyclidine NEGATIVE (NEGATIVE); THC Cannibis NEGATIVE (NEGATIVE)
[2022-06-13 11:10] VITALS: TEMP 98.6; O2SAT 100
[2022-06-13 11:13] VITALS: BP 103/64
== END 2022-06-13 11:06 | disposition home or self-care (01) ==
LOC: ER 07:36
DX: G43.009 Migraine without aura, not intractable, without status migrainosus (principal); S70.02XA Contusion of left hip, initial encounter; F10.20 Alcohol dependence, uncomplicated; Z88.3 Allergy status to other anti-infective agents
CPT/HCPCS: 36415; 70450; 72170; 80053; 80307; 81003; 81025; 85025; 96374; 96375; 99284; J1200; J2765; J7030

== ENCOUNTER 2022-07-21 12:32 | Emergency (ER) | payer SELFPAY ==
--- OUTSIDE RECORDS SUMMARY | 2022-07-21 13:02 | XMS REPORT | Continuity of Care Document ---
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 N code = USG) [...] A code = ULEU) UF REFLEXUF REFLEXUrine [id number] 14:31:00 Test Item Value Reference Range Interpretation Comments RBC,Urine (test code = URBCUF) 3-5 /HPF 0-2 A WBC,Urine (test code = UWBCUF) >50 /HPF 0-5 A Epithelial Cell,Urine (test code = 6-10 /HPF 0-5 A UECUF) Casts,Urine (test code = UCASTUF) 0-5 /LPF None Seen Bacteria,Urine (test code = Few /hpf None Seen A UBACTUF) UF REFLEXUF REFLEXComplete Blood Count Auto [id number] 14:26:00 Test Item Value Reference Range Interpretation [...] code = NRBCP) 0 % Comprehensive Metabolic [id number] 14:26:00 Test Item Value Reference Range Interpretation [...] 90 U/L 46-116 N = ALP) Ethanol [id number] 14:26:00 Test Item Value Reference Range Interpretation [...] = Negative Negative HCGQ) Coronavirus PCR, COVID19 [id number] 14:25:00 Test Item Value Reference Range Interpretation Comments Coronavirus PCR, COVID19 Rapid (test code = SARSCOV2) Coronavirus PCR, COVID19 Reference Range: Rapid (test code = Negative MPQUDZH87.1) SARS-CoV-2 PCR Result: Negative by RT-PCR (test code = SARS-CoV-2 PCR Result:) COVID-19 Status: AsymptomaticANA TITER AND [id number] 04:38:09 Test Item Value Reference Range Interpretation Comments PATTERN (test HOMOGENEOUS NONE A code = 16276) HARMONY TITER 1:80 TITER See_Comment H [Automated mes corie] (test code = The system ic h 3550) generated this result transmitted ref erence range: <1:40. T he reference range was not used to interpr et this result as normal/abnormal . PATTERN 2 NOT DETECTED NONE (test code = 69611) HARMONY TITER 2 NOT DETECTED TITER See_Comment [Automat ed message] (test code = The system [facility] h [address]) generated this result transmitted ref erence range: <1:40. T he reference range was not used to interpr et this result as normal/abnormal . PATTERN 3 NOT DETECTED NONE (test code = 68819) HARMONY TITER 3 NOT DETECTED TITER See_Comment [Automat ed message] (test code = The system [facility] h 6[address]98) generated this result transmitted ref erence range: <1:40. T he reference range was not used to interpr et this result as normal/abnormal . METHOD (test (NOTE) Methodology is code = 42057) Indirect Immunofluoresce nt Assay (IFA) with a [employer] system using He p2000 cells (Hep2 esteban ls transfected wit h SS-A/Ro). A pat tern reported as SS- A is considered conf irmatory in the appropri ate clinical contex t. Titers of 1:40 and 1:80 are considered weak/borderline positive. UNLES S OTHERWISE INDIC ATED, ALL TESTING PER FORMED [facility] LAB[facility]ATORIES, I [place]. [address] [place] [address] LABORATOR Y DIRECTOR: ANATSASIIA ERVIN M.D. CLIA NUMBER [id number] CAP ACCREDITATION N O. [id number] HARMONY (ANTI-NUCLEAR AB) WITH REFLEX [id number] 13:05:47 Test Item Value Reference Range Interpretation Comments ANTI-NUCLEAR ANTIBODIES (test code = POSITIVE NEGATIVE A 3506) RBC [id number] 21:19:00 Test Item Value Reference Range Interpretation Comments ANISOCYTOSIS (test code = ANISO) 1+ POLYCHROMASIA (test code = POLC) SLIGHT HYPOCHROMIA (test code = HYPO) 1+ MICROCYTOSIS (test code = MICR) 1+ MACROCYTOSIS (test code = MACR) FEW TEAR DROP CELLS (test code = TEAR) FEW CBC W/AUTO [id number] 21:19:00 Test Item Value Reference Range Interpretation Comments WHITE BLOOD CELL 6.3 x10 3/uL 4.5-11.0 N (test code = WBC) RED BLOOD CELL (test 3.90 x10 6/uL 3.54-5.02 N code = RBC) HEMOGLOBIN (test code 6.4 g/dL 11.0-15.0 LL Critic al result = HGB) called to CARLY Dumasy [id number] at 20 09 07/20/21Ndeirdre hand back resut and tech confirmed it's [...] NO (test code = MDIFF) COMPREHENSIVE METABOLIC [id number] 19:46:00 Test Item Value Reference Range Interpretation [...] TOTAL (test code = ALKP) TROP-I HIGH [id number] 19:46:00 Test Item Value Reference Range Interpretation [...] These resu lts were obtained using Siemens AtePrompt.ly IM TnI Hreagent. Results from di fferent methodologies s hould not becompared to o ne another as quantitative results and URLs mayvar y by method. HCG SERUM [id number] 19:39:00 Test Item Value Reference Range Interpretation Comments HCG SERUM QUAL (test code = SERUM NEGATIVE NEGATIVE HCGQL) UA RFLX MICR CULT IF [id number] 19:35:00 Test Item Value Reference Range Interpretation [...] Flank PainSpecimen Description: MID STREAM- CT CHEST W/[id number] 00:00:00 [facility] 1975 Sex: F Name: TARUN WATSON [facility] : 1975 Age/S: 46 / F [address] [place] [address] Unit #: [id number] Loc: [place] [address] Phys: Sampson Johnson Acct: [id number] Dis Date: Status: REG ER PHONE #: [phone] Exam Date: 07/20/20212058 FAX #: [phone] Reason: fall, LUQ abdominal pain EXAMS: CPT CODE: [id number] CT CHEST W/CONTRAST 20044 PROCEDURE INFORMATION: Exam: CT Chest With Contrast; [...] clinical indication); or iterative reconstruction. Contrast material: JEY259; Contrast volume: 100 ml; Contrast route: INTRAVENOUS (IV); COMPARISON: No relevant prior studies available. FINDINGS: Lungs: No consolidation. No masses. Pleural spaces: Unremarkable. No pneumothorax. No pleural effusion. Heart: No cardiomegaly. No pericardial effusion. Mild coronary artery atherosclerosis. Ao rta: Mild aneurysmal dilatation of the ascending thoracic [...] 1 Signed Report (CONTINUED) Name: TARUN WATSON [facility] : 1975 Age/S: 46 / F [address] [place] [address] Unit #: [id number] Loc: [place] [address] Phys: Sampson Johnson Acct: [id number] Dis Date: Status: REG ER PHONE #: [phone] Exam Date: 07/20/20212058 FAX #: [phone] Reason: fall, LUQ abdominal pain EXAMS: CPT CODE: [id number] CT CHEST W/CONTRAST 88640 <Continued> control; mA and/or kV adjustment per patient size (includes targeted exams where dose is matched to clinical indication); or iterative reconstruction. Contrast material: ZHY837; Contrast volume: 100 ml; Contrast route: INTRAVENOUS (IV); COMPARISON: No r elevant prior studies available. FINDINGS: Liver: Size and contours appear normal. Gallbladder and bile ducts: Gallbladder surgically absent. No abnormal findings seen in the postcholecystectomy bed. Pancreas: No surrounding inflammation. Spleen: No abnormality detected. Adrenal glands: No detected les ions. Kidneys and ureters: Kidneys normal in size and contour. No renal stones. Visualized portions of bilateral collecting systems demonstrate no hydronephrosis. No detected ureteral stones. Stomach and bowel: No obstructive or inflammatory pattern detected. Nygd-zy-yraviwwc amount of stool retained w ithin the colon. Appendix: Surgically absent; no inflammation [...] limits. Bilateral ovaries not detected. Bones/joints: Lumbar spinenormally aligned without compression deformity or spondylolisthesis. No [...] 2 Signed Report (CONTINUED) Name: TARUN WATSON [facility] :1975 Age/S: 46 / F [address] [place] [address] Unit #: [id number] Loc: [place] [address] Phys: Sampson Trotter Acct: [id number] Dis Date: Status: REG ER PHONE #: [phone] Exam Date: 07/20/20212058 FAX #: [phone] Reason: fall, LUQ abdominal pain EXAMS: CPT CODE: [id number] CT CHEST W/CONTRAST 62492 <Continued> at 2125 Reported and signed by: Felix Cali M.D. CC: Sampson BLOTON Technologist:Reina Luna, RT(R) CTDI: DLP: Trnscb Date/Time: 07/20/2021 (2124) [email or web address] Orig Print D/T: S: 07/20/2021 (2125) PAGE 3 Signed Report- CT ABD PELVIS W/CONT 2021-07-20 00:00:00 [facility] 1975 Sex: F Name: TARUN WATSON [facility] : 1975 Age/S: 46 / F [address] [place] [address] Unit #: [id number] Loc: [place] [address] Phys: Sampson Johnson Acct: [id number] Dis Date: Status: REG ER PHONE #: [phone] Exam Date: 07/20/20212057 FAX #: [phone] Reason: Fall, LUQ abdominal pain EXAMS: CPT CODE: [id number] CT ABD PELVIS W/CONT 13816 PROCEDURE INFORMATION: Exam: CT Chest With Contrast; [...] clinical indication); or iterative reconstruction. Contrast material: SLI052; Contrast volume: 100 ml; Contrast route: INTRAVENOUS [...] 1 Signed Report (CONTINUED) Name: TARUN WATSON [facility] : 1975 Age/S: 46 / F [address] [place] [address] Unit #: [id number] Loc: [place] [address] Phys: Sampson Johnson Acct: [id number] Dis Date: Status: REG ER PHONE #: [phone] Exam Date: 07/20/20212057 FAX #: [phone] Reason: Fall, LUQ abdominal pain EXAMS: CPT CODE: [id number] CT ABD PELVIS W/CONT 76934 <Continued> control; mA and/or kV adjustment per patient size (includes targeted exams where dose is matched to clinical indication); or iterative reconstruction. Contrast material: CKP180; Contrast volume: 100 ml; Contrast route: INTRAVENOUS [...] bowel: No obstructive or inflammatory pattern detected. Pueq-dn-ajkwelxc amount of stool retained within the colon. [...] Bilateral ovaries not detected. Bones/joints: Lumbar spine no rmally aligned without compression deformity or spondylolisthesis. No [...] 2 Signed Report (CONTINUED) Name: TARUN WATSON [facility] : 1 08/19/1974 Age/S: 46 / F [address] [place] [address] Unit #: [id number] Loc: [place] [address] Phys: Sampson Johnson Acct: [id number] Dis Date: Status: REG ER PHONE #: [phone] Exam Date: 07/20/20212057 FAX #: [phone] Reason: Fall, LUQ abdominal pain EXAMS: CPT CODE: [id number] CT ABD PELVISW/CONT 28328 <Continued> at 2125 Reported and signed by: Felix Cali M.D. CC: Sampson BOLTON Technologist:RT Shanique(R) CTDI: DLP: Trnscb Date/Time: 07/20/2021 (2124) [email or web address] Orig Print D/T: S: 07/20/2021 (2125) PAGE 3 Signed ReportANA NON-REFLEX TO [id number] 08:05:02 Test Item Value Reference Range Interpretation Comments ANTI-NUCLEAR POSITIVE NEGATIVE A Methodology is Indirect ANTIBODIES (test Immunofluor escent Assay code = 3506) (IFA) with a t itering system using He p2000 cells (Hep2 cells tra nsfected with SS-A/Ro). A pattern reported as SS- A is considered conf irmatory in the appropriate clinical context. UNLESS OTHERWISE INDICATED, ALL TESTING PERFORMED [facility] [address] [place] [id number] [place] [address] DIRECTOR: ANASTASIIA ERVIN M.D. CLIA NUMBER [id number] CAP ACCREDITATION N O. [id number] CBC W/AUTO DIFF WITH [id number] 06:35:05 Test Item Value Reference Range Interpretation [...] LL BE ELIMINATED REDUNDANT TOABS OLUTE COUNTS.SEE [email or web address] /final _CBC_reporting_ update LYMPHOCYTES (test 24.1 % code = 1010) MONOCYTES (test code 8.1 % = 1011) EOSINOPHILS (test 2.7 % code = 1012) BASOPHILS (test code 0.8 % = 1013) IMMATURE 0.3 % GRANYLOCYTES (test code = 1036) NUCLEATED RBCS (test 0.0 /100 See_Comment [Autom ated message] code = 1065) WBC'S The system Places[employer] generated this result transmitted ref erence range: [...] RBCS 0.00 K/UL 0.00-0.11 (test code = 96512) COMMENTS (test code (NOTE) SLIGHT ANISOCYTOSIS = 1016) MARKED HYPOCHRO MASIA MARKED MICROCYT OSIS SLIGHT POLYCHRO MASIA PLATELETS APPEA R NORMAL VITAMIN D, 25 [id number] 06:27:00 Test Item Value Reference Range Interpretation [...] . . . NG/ML 30-100 TSH, THIRD [id number] 06:20:17 Test Item Value Reference Range Interpretation Comments TSH, THIRD GENERATION (test code 0.956 UIU/ML 0.400-4.100 = 2821) COMPREHENSIVE METABOLIC [id number] 03:23:06 Test Item Value Reference Range Interpretation Comments GLUCOSE (test code = 85 MG/DL 70-99 2216) BUN (test code = 8 MG/DL 6-20 2207) CREATININE (test 0.60 MG/DL 0.60-1.30 EFFECTIVE code = 2214) 07/06/2021, [facility] HAS IMPLEMENTED THE NK-ASN RECOMME NDED KD-EPI EGF R REFIT CALCULATI ON THAT DOES NOT INCLUDE A COEFFICIENT FOR RACE. FOR MORE INFORMATION, SE E ANNOUNCEMENT [email or web address] eGFR (2020 CKD-EPI) 111 >60 (test code = 49647) ML/MIN/1.73 CALC BUN/CREAT (test 13 RATIO 6-28 code = 2235) SODIUM (test code = 142 MEQ/L 193-161 1705) POTASSIUM (test code 3.7 MEQ/L 3.5-5.4 = [...] AST (test code = 23 U/L 9-40 2218) ALT (test code = 18 U/L 540 2218) LIPID [id number] 03:23:06 Test Item Value Reference Range Interpretation [...] MOREINFORMATION , SEE CLIENT ANNOUNCE MENT AT [email or web address] /CalcLDL-C RISK RATIO LDL/HDL 1.57 RATIO <3.22 (test code = 223) LACTIC ACID [id number] 10:18:00 Test Item Value Reference Range Interpretation Comments LACTIC ACID POC Test not performed 0.36-1.25 Previo usly reported (test code = mmol/L result: 3.35 LACTP) mmol/LEdited by : LINDA on 06/18/20:1017~~ Corrected Repor t ~~Reason (required):KOURTNEY IYER E ERROR PER FAL ON- TEST REPEATED W ITH NEW COLLECTION AND CARDTRIDGE [id number] 06:57:00 Test Item Value Reference Range Interpretation Comments POTASSIUM (test code = K) 3.0 MMOL/L 3.6-5.2 L [id number] 06:42:00 Test Item Value Reference Range Interpretation Comments MAGNESIUM (test code = MAG) 2.2 mg/dL 1.7-2.8 N LACTIC [id number] 06:24:00 Test Item Value Reference Range Interpretation Comments LACTIC ACID (test code = LACT) 0.80 mmol/L 0.5-2.2 N [id number] 21:26:00 Test Item Value Reference Range Interpretation Comments MAGNESIUM (test code = MAG) 1.4 mg/dL 1.7-2.8 L URINALYSIS DIPSTICK [id number] 19:39:00 Test Item Value Reference Range Interpretation [...] NEGATIVE (test code = LEUU) LACTIC ACID [id number] 18:38:00 Test Item Value Reference Range Interpretation Comments LACTIC ACID POC (test code = 2.44 mmol/L 0.36-1.25 H LACTP) LACTIC ACID [id number] 18:02:00 Test Item Value Reference Range Interpretation Comments LACTIC ACID POC (test code = 3.35 mmol/L 0.36-1.25 H LACTP) - CT ABD PELVIS W/O [id number] 17:22:00 [facility] : 1975 Sex: FPatientName: TARUN WATSON Unit No: [id number] EXAMS: CPT: [id number] CT ABD PELVIS W/O CONT [address] CT ABDOMEN AND PELVIS WITHOUT CONTRAST Comparison: [...] appendectomy. No bowel dilatation or obstruction. No adenopathyor free fluid. No acute osseous findings. There [...] 9.07 DLP: 415.78 Trscr Dt/Tm: 06/17/2020 (172) by:[email or web address] Orig Print D/T: S: 0 (1724) BATCH NO: N/A Name: TARUN WATSON FSED Phys: Juan Sanderson XXXX FM 1488 : 1975 Age: 44 Sex: [place] [id number] Loc: KEVIN Exam Date: 06/17/2020 Status: PRE ER PH: FAX: PAGE 1 Signed ReportDRUGS OF ABUSE SCREEN [id number] 17:03:00 Test Item Value Reference Range Interpretation [...] code = MDMA) NEGATIVE NEGATIVE URINALYSIS DIPSTICK [id number] 16:58:00 Test Item Value Reference Range Interpretation [...] code = LEUU) - XR CHEST 2 [id number] 16:49:00 [facility] : 1975 Sex: FPatientName: TARUN WATSON Unit No: [id number] EXAMS: CPT: [id number] XR CHEST 2 V 91012 COMPARISON: None.CHEST RADIOGRAPHS -FRONTAL AND LATERAL VIEWS. INDICATION: Shortness of breath. FINDINGS: The lungs are clear. No consolidation or effusion is seen. The hilar regions and pulmonary vasculature are unremarkable. Cardiac silhouette is normal. IMPRESSION: No acute lung disease. at 1649 Reported and signed by: Mykel Williamson MD CC: Juan Haider Technologist: Marleny Herrera Trscr Dt/Tm: 06/17/2020 (1648) by:[email or web address] Orig Print D/T: S: 06/17/2020 (1651) BATCH NO: N/A Name: TARUN WATSON [facility] Phys: DANIEL - ApolinarJuan irving XXXX FM 1488 : 1975 Age: 44 Sex: [place] [address] [facility] Ex[facility] Date: 06/17/2020 Status: PRE ER PH: FAX: PAGE 1 Signed Report [id number] 16:46:00 Test Item Value Reference Range Interpretation Comments AMYLASE (test code = CHRIS) 78 U/L 14-97 N COMPREHENSIVE METABOLIC [id number] 16:26:00 Test Item Value Reference Range Interpretation [...] = IU/L 42-141 N ALKP) COMPREHENSIVE METABOLIC [id number] 16:26:00 Test Item Value Reference Range Interpretation [...] 75 IU/L 42-141 N ALKP) CBC W/AUTO [id number] 16:21:00 Test Item Value Reference Range Interpretation [...] BA#) 0.08 K/mm3 0.0-0.1 N URINE AND [id number] 17:42:00 Test Item Value Reference Range Interpretation Comments UA Color (test code = Yellow *NA*(04/07/19 UA Color) 12:42 PM) [facility] AND [id number] 17:42:00 Test Item Value Reference Range Interpretation Comments UA Turbidity (test code = Clear (04/07/19 12:42 UA Turbidity) PM) [facility] [id number] 17:42:00 Test Item Value Reference Range Interpretation Comments UA Spec Grav (test code = UA Spec 1.010 1 Grav) [facility] [id number] 17:42:00 Test Item Value Reference Range Interpretation Comments UA pH (test code = UA pH) 6.0 1 5.0-8.0 [facility] AND [id number] 17:42:00 Test Item Value Reference Range Interpretation Comments UA Protein (test code = UA Negative mg/dL Protein) [facility] AND [id number] 17:42:00 Test Item Value Reference Range Interpretation Comments UA Glucose (test code = UA Negative mg/dL Glucose) [facility] [id number] 17:42:00 Test Item Value Reference Range Interpretation Comments UA Ketones (test code = UA Negative mg/dL Ketones) [facility] [id number] 17:42:00 Test Item Value Reference Range Interpretation Comments UA Bili (test code = Negative *NA*(04/07/19 UA Bili) 12:42 PM) [facility] [id number] 17:42:00 Test Item Value Reference Range Interpretation Comments UA Blood (test code = Negative (04/07/19 12:42 UA Blood) PM) [facility] [id number] 17:42:00 Test Item Value Reference Range Interpretation Comments UA Nitrite (test code Negative (04/07/19 12:42 = UA Nitrite) PM) [facility] AND [id number] 17:42:00 Test Item Value Reference Range Interpretation Comments UA Leuk Est (test Negative (04/07/19 12:42 code = UA Leuk Est) PM) [facility] AND [id number] 17:42:00 Test Item Value Reference Range Interpretation Comments UA Sq Epi (test code = UA Sq Occasional /LPF Epi) [facility] [id number] 17:42:00 Test Item Value Reference Range Interpretation Comments UA WBC (test code = 1 See_Comment [Automa burke message] The UA WBC) system which ge nerated this result transmit burke reference range : <=5. The reference range was not used to interpr et this result as marleny l/abnormal. [facility] [id number] 17:42:00 Test Item Value Reference Range Interpretation Comments UA Bacteria (test code = UA Occasional /HPF Bacteria) [facility] [id number] 17:42:00 Test Item Value Reference Range Interpretation Comments UA Mucus (test code = UA Mucus) Few /LPF [facility] [id number] 17:42:00 Test Item Value Reference Range Interpretation Comments UA Urobilinogen (test code = UA <=1.0 mg/dL 0.1-1.0 Urobilinogen) [facility] [id number] 17:42:00 Test Item Value Reference Range Interpretation Comments UA Color (test code = Yellow *NA*(04/07/19 UA Color) 12:42 PM) [facility] [id number] 17:42:00 Test Item Value Reference Range Interpretation Comments UA Turbidity (test code = Clear (04/07/19 12:42 UA Turbidity) PM) [facility] [id number] 17:42:00 Test Item Value Reference Range Interpretation Comments UA Spec Grav (test code = UA Spec 1.010 1 Grav) [facility] [id number] 17:42:00 Test Item Value Reference Range Interpretation Comments UA pH (test code = UA pH) 6.0 1 5.0-8.0 [facility] [id number] 17:42:00 Test Item Value Reference Range Interpretation Comments UA Protein (test code = UA Negative mg/dL Protein) [facility] [id number] 17:42:00 Test Item Value Reference Range Interpretation Comments UA Glucose (test code = UA Negative mg/dL Glucose) [facility] [id number] 17:42:00 Test Item Value Reference Range Interpretation Comments UA Ketones (test code = UA Negative mg/dL Ketones) [facility] [id number] 17:42:00 Test Item Value Reference Range Interpretation Comments UA Bili (test code = Negative *NA*(04/07/19 UA Bili) 12:42 PM) [facility] [id number] 17:42:00 Test Item Value Reference Range Interpretation Comments UA Blood (test code = Negative (04/07/19 12:42 UA Blood) PM) [facility] [id number] 17:42:00 Test Item Value Reference Range Interpretation Comments UA Nitrite (test code Negative (04/07/19 12:42 = UA Nitrite) PM) [facility] [id number] 17:42:00 Test Item Value Reference Range Interpretation Comments UA Leuk Est (test Negative (04/07/19 12:42 code = UA Leuk Est) PM) [facility] [id number] 17:42:00 Test Item Value Reference Range Interpretation Comments UA Sq Epi (test code = UA Sq Occasional /LPF Epi) [facility] [id number] 17:42:00 Test Item Value Reference Range Interpretation Comments UA WBC (test code = 1 See_Comment [Automa burke message] The UA WBC) system which ge nerated this result transmit burke reference range : <=5. The reference range was not used to interpr et this result as marleny l/abnormal. [facility] [id number] 17:42:00 Test Item Value Reference Range Interpretation Comments UA Bacteria (test code = UA Occasional /HPF Bacteria) [facility] [id number] 17:42:00 Test Item Value Reference Range Interpretation Comments UA Mucus (test code = UA Mucus) Few /LPF [facility] [id number] 17:42:00 Test Item Value Reference Range Interpretation Comments UA Urobilinogen (test code = UA <=1.0 mg/dL 0.1-1.0 Urobilinogen) [facility] [id number] 17:42:00 Test Item Value Reference Range Interpretation Comments UA Color (test code = Yellow *NA*(04/07/19 UA Color) 12:42 PM) [facility] [id number] 17:42:00 Test Item Value Reference Range Interpretation Comments UA Turbidity (test code = Clear (04/07/19 12:42 UA Turbidity) PM) [facility] [id number] 17:42:00 Test Item Value Reference Range Interpretation Comments UA Spec Grav (test code = UA Spec 1.010 1 Grav) [facility] [id number] 17:42:00 Test Item Value Reference Range Interpretation Comments UA pH (test code = UA pH) 6.0 1 5.0-8.0 [facility] [id number] 17:42:00 Test Item Value Reference Range Interpretation Comments UA Protein (test code = UA Negative mg/dL Protein) [facility] [id number] 17:42:00 Test Item Value Reference Range Interpretation Comments UA Glucose (test code = UA Negative mg/dL Glucose) [facility] [id number] 17:42:00 Test Item Value Reference Range Interpretation Comments UA Ketones (test code = UA Negative mg/dL Ketones) [facility] [id number] 17:42:00 Test Item Value Reference Range Interpretation Comments UA Bili (test code = Negative *NA*(04/07/19 UA Bili) 12:42 PM) [facility] [id number] 17:42:00 Test Item Value Reference Range Interpretation Comments UA Blood (test code = Negative (04/07/19 12:42 UA Blood) PM) [facility] [id number] 17:42:00 Test Item Value Reference Range Interpretation Comments UA Nitrite (test code Negative (04/07/19 12:42 = UA Nitrite) PM) [facility] [id number] 17:42:00 Test Item Value Reference Range Interpretation Comments UA Leuk Est (test Negative (04/07/19 12:42 code = UA Leuk Est) PM) [facility] [id number] 17:42:00 Test Item Value Reference Range Interpretation Comments UA Sq Epi (test code = UA Sq Occasional /LPF Epi) [facility] [id number] 17:42:00 Test Item Value Reference Range Interpretation Comments UA WBC (test code = 1 See_Comment [Automa burke message] The UA WBC) system which ge nerated this result transmit burke reference range : <=5. The reference range was not used to interpr et this result as marleny l/abnormal. [facility] [id number] 17:42:00 Test Item Value Reference Range Interpretation Comments UA Bacteria (test code = UA Occasional /HPF Bacteria) [facility] [id number] 17:42:00 Test Item Value Reference Range Interpretation Comments UA Mucus (test code = UA Mucus) Few /LPF [facility] [id number] 17:42:00 Test Item Value Reference Range Interpretation Comments UA Urobilinogen (test code = UA <=1.0 mg/dL 0.1-1.0 Urobilinogen) [facility] [id number] 17:42:00 Test Item Value Reference Range Interpretation Comments UA Color (test code = Yellow *NA*(04/07/19 UA Color) 12:42 PM) [facility] [id number] 17:42:00 Test Item Value Reference Range Interpretation Comments UA Turbidity (test code = Clear (04/07/19 12:42 UA Turbidity) PM) [facility] [id number] 17:42:00 Test Item Value Reference Range Interpretation Comments UA Spec Grav (test code = UA Spec 1.010 1 Grav) [facility] [id number] 17:42:00 Test Item Value Reference Range Interpretation Comments UA pH (test code = UA pH) 6.0 1 5.0-8.0 [facility] [id number] 17:42:00 Test Item Value Reference Range Interpretation Comments UA Protein (test code = UA Negative mg/dL Protein) [facility] [id number] 17:42:00 Test Item Value Reference Range Interpretation Comments UA Glucose (test code = UA Negative mg/dL Glucose) [facility] [id number] 17:42:00 Test Item Value Reference Range Interpretation Comments UA Ketones (test code = UA Negative mg/dL Ketones) [facility] [id number] 17:42:00 Test Item Value Reference Range Interpretation Comments UA Bili (test code = Negative *NA*(04/07/19 UA Bili) 12:42 PM) [facility] [id number] 17:42:00 Test Item Value Reference Range Interpretation Comments UA Blood (test code = Negative (04/07/19 12:42 UA Blood) PM) [facility] [id number] 17:42:00 Test Item Value Reference Range Interpretation Comments UA Nitrite (test code Negative (04/07/19 12:42 = UA Nitrite) PM) [facility] [id number] 17:42:00 Test Item Value Reference Range Interpretation Comments UA Leuk Est (test Negative (04/07/19 12:42 code = UA Leuk Est) PM) [facility] [id number] 17:42:00 Test Item Value Reference Range Interpretation Comments UA Sq Epi (test code = UA Sq Occasional /LPF Epi) [facility] [id number] 17:42:00 Test Item Value Reference Range Interpretation Comments UA WBC (test code = 1 See_Comment [Automa burke message] The UA WBC) system which ge nerated this result transmit burke reference range : <=5. The reference range was not used to interpr et this result as marleny l/abnormal. [facility] [id number] 17:42:00 Test Item Value Reference Range Interpretation Comments UA Bacteria (test code = UA Occasional /HPF Bacteria) [facility] [id number] 17:42:00 Test Item Value Reference Range Interpretation Comments UA Mucus (test code = UA Mucus) Few /LPF [facility] [id number] 17:42:00 Test Item Value Reference Range Interpretation Comments UA Urobilinogen (test code = UA <=1.0 mg/dL 0.1-1.0 Urobilinogen) [facility]2019-09-14 08:47:00 Test Item Value Reference Range Interpretation Comments Phosphorus (test code = Phosphorus) 2.5 2.5-4.5 [facility]2019-09-14 08:47:00 Test Item Value Reference Range Interpretation Comments Glucose Lvl (test code = Glucose Lvl) 87 70-99 [facility]2019-09-14 08:47:00 Test Item Value Reference Range Interpretation Comments BUN (test code = BUN) 5 7-22 [facility]2019-09-14 08:47:00 Test Item Value Reference Range Interpretation Comments Creatinine Lvl (test code = Creatinine 0.37 0.50-1.40 Lvl) [facility]2019-09-14 08:47:00 Test Item Value Reference Range Interpretation Comments Sodium Lvl (test code = Sodium Lvl) 142 135-145 [facility]2019-09-14 08:47:00 Test Item Value Reference Range Interpretation Comments Potassium Lvl (test code = Potassium 3.4 3.5-5.1 Lvl) [facility]2019-09-14 08:47:00 Test Item Value Reference Range Interpretation Comments Chloride Lvl (test code = Chloride Lvl) 103 95-109 [facility]2019-09-14 08:47:00 Test Item Value Reference Range Interpretation Comments CO2 (test code = CO2) 33 24-32 [facility]2019-09-14 08:47:00 Test Item Value Reference Range Interpretation Comments AGAP (test code = AGAP) 9.4 10.0-20.0 [facility]2019-09-14 08:47:00 Test Item Value Reference Range Interpretation Comments Calcium Lvl (test code = Calcium Lvl) 8.9 8.5-10.5 [facility]2019-09-14 08:47:00 Test Item Value Reference Range Interpretation Comments eGFR (test code = eGFR) 130 [facility]2019-09-14 08:47:00 Test Item Value Reference Range Interpretation Comments Magnesium Lvl (test code = Magnesium 1.7 1.8-2.4 Lvl) [facility]2019-09-14 08:47:00 Test Item Value Reference Range Interpretation Comments Phosphorus (test code = Phosphorus) 2.5 2.5-4.5 [facility]2019-09-14 08:47:00 Test Item Value Reference Range Interpretation Comments Glucose Lvl (test code = Glucose Lvl) 87 70-99 [facility]2019-09-14 08:47:00 Test Item Value Reference Range Interpretation Comments BUN (test code = BUN) 5 7-22 [facility]2019-09-14 08:47:00 Test Item Value Reference Range Interpretation Comments Creatinine Lvl (test code = Creatinine 0.37 0.50-1.40 Lvl) [facility]2019-09-14 08:47:00 Test Item Value Reference Range Interpretation Comments Sodium Lvl (test code = Sodium Lvl) 142 135-145 [facility]2019-09-14 08:47:00 Test Item Value Reference Range Interpretation Comments Potassium Lvl (test code = Potassium 3.4 3.5-5.1 Lvl) [facility]2019-09-14 08:47:00 Test Item Value Reference Range Interpretation Comments Chloride Lvl (test code = Chloride Lvl) 103 95-109 [facility]2019-09-14 08:47:00 Test Item Value Reference Range Interpretation Comments CO2 (test code = CO2) 33 24-32 [facility]2019-09-14 08:47:00 Test Item Value Reference Range Interpretation Comments AGAP (test code = AGAP) 9.4 10.0-20.0 [facility]2019-09-14 08:47:00 Test Item Value Reference Range Interpretation Comments Calcium Lvl (test code = Calcium Lvl) 8.9 8.5-10.5 [facility]2019-09-14 08:47:00 Test Item Value Reference Range Interpretation Comments eGFR (test code = eGFR) 130 [facility]2019-09-14 08:47:00 Test Item Value Reference Range Interpretation Comments Magnesium Lvl (test code = Magnesium 1.7 1.8-2.4 Lvl) [facility]2019-09-14 08:47:00 Test Item Value Reference Range Interpretation Comments Phosphorus (test code = Phosphorus) 2.5 2.5-4.5 [facility]2019-09-14 08:47:00 Test Item Value Reference Range Interpretation Comments Glucose Lvl (test code = Glucose Lvl) 87 70-99 [facility]2019-09-14 08:47:00 Test Item Value Reference Range Interpretation Comments BUN (test code = BUN) 5 7-22 [facility]2019-09-14 08:47:00 Test Item Value Reference Range Interpretation Comments Creatinine Lvl (test code = Creatinine 0.37 0.50-1.40 Lvl) [facility]2019-09-14 08:47:00 Test Item Value Reference Range Interpretation Comments Sodium Lvl (test code = Sodium Lvl) 142 135-145 [facility]2019-09-14 08:47:00 Test Item Value Reference Range Interpretation Comments Potassium Lvl (test code = Potassium 3.4 3.5-5.1 Lvl) [facility]2019-09-14 08:47:00 Test Item Value Reference Range Interpretation Comments Chloride Lvl (test code = Chloride Lvl) 103 95-109 [facility]2019-09-14 08:47:00 Test Item Value Reference Range Interpretation Comments CO2 (test code = CO2) 33 24-32 [facility]2019-09-14 08:47:00 Test Item Value Reference Range Interpretation Comments AGAP (test code = AGAP) 9.4 10.0-20.0 [facility]2019-09-14 08:47:00 Test Item Value Reference Range Interpretation Comments Calcium Lvl (test code = Calcium Lvl) 8.9 8.5-10.5 [facility]2019-09-14 08:47:00 Test Item Value Reference Range Interpretation Comments eGFR (test code = eGFR) 130 [facility]2019-09-14 08:47:00 Test Item Value Reference Range Interpretation Comments Magnesium Lvl (test code = Magnesium 1.7 1.8-2.4 Lvl) [facility]2019-09-14 08:47:00 Test Item Value Reference Range Interpretation Comments Phosphorus (test code = Phosphorus) 2.5 2.5-4.5 [facility]2019-09-14 08:47:00 Test Item Value Reference Range Interpretation Comments Glucose Lvl (test code = Glucose Lvl) 87 70-99 [facility]2019-09-14 08:47:00 Test Item Value Reference Range Interpretation Comments BUN (test code = BUN) 5 7-22 [facility]2019-09-14 08:47:00 Test Item Value Reference Range Interpretation Comments Creatinine Lvl (test code = Creatinine 0.37 0.50-1.40 Lvl) [facility]2019-09-14 08:47:00 Test Item Value Reference Range Interpretation Comments Sodium Lvl (test code = Sodium Lvl) 142 135-145 [facility]2019-09-14 08:47:00 Test Item Value Reference Range Interpretation Comments Potassium Lvl (test code = Potassium 3.4 3.5-5.1 Lvl) [facility]2019-09-14 08:47:00 Test Item Value Reference Range Interpretation Comments Chloride Lvl (test code = Chloride Lvl) 103 95-109 [facility]2019-09-14 08:47:00 Test Item Value Reference Range Interpretation Comments CO2 (test code = CO2) 33 24-32 [facility]2019-09-14 08:47:00 Test Item Value Reference Range Interpretation Comments AGAP (test code = AGAP) 9.4 10.0-20.0 [facility]2019-09-14 08:47:00 Test Item Value Reference Range Interpretation Comments Calcium Lvl (test code = Calcium Lvl) 8.9 8.5-10.5 [facility]2019-09-14 08:47:00 Test Item Value Reference Range Interpretation Comments eGFR (test code = eGFR) 130 [facility]2019-09-14 08:47:00 Test Item Value Reference Range Interpretation Comments Magnesium Lvl (test code = Magnesium 1.7 1.8-2.4 Lvl) [facility]2019-09-13 23:56:00 Test Item Value Reference Range Interpretation Comments Phosphorus (test code = Phosphorus) 3.0 2.5-4.5 [id number] 23:56:00 Test Item Value Reference Range Interpretation Comments Potassium Lvl (test code = Potassium 3.9 3.5-5.1 Lvl) [facility]2019-09-13 23:56:00 Test Item Value Reference Range Interpretation Comments Phosphorus (test code = Phosphorus) 3.0 2.5-4.5 [id number] 23:56:00 Test Item Value Reference Range Interpretation Comments Potassium Lvl (test code = Potassium 3.9 3.5-5.1 Lvl) [facility]2019-09-13 23:56:00 Test Item Value Reference Range Interpretation Comments Phosphorus (test code = Phosphorus) 3.0 2.5-4.5 [facility] Hos[id number] 23:56:00 Test Item Value Reference Range Interpretation Comments Potassium Lvl (test code = Potassium 3.9 3.5-5.1 Lvl) [facility]2019-09-13 23:56:00 Test Item Value Reference Range Interpretation Comments Phosphorus (test code = Phosphorus) 3.0 2.5-4.5 [facility] Hos[id number] 23:56:00 Test Item Value Reference Range Interpretation Comments Potassium Lvl (test code = Potassium 3.9 3.5-5.1 Lvl) [facility]2019-09-13 13:46:00 Test Item Value Reference Range Interpretation Comments AGAP (test code = AGAP) 16.7 10.0-20.0 [facility]2019-09-13 13:46:00 Test Item Value Reference Range Interpretation Comments Calcium Lvl (test code = Calcium Lvl) 9.4 8.5-10.5 [place] [id number] 13:46:00 Test Item Value Reference Range Interpretation Comments B/C Ratio (test code = B/C Ratio) 9 1 6-25 [place] [id number] 13:46:00 Test Item Value Reference Range Interpretation Comments Albumin Lvl (test code = Albumin Lvl) 3.0 3.5-5.0 [place] [id number] 13:46:00 Test Item Value Reference Range Interpretation Comments Globulin (test code = Globulin) 4.0 2.7-4.2 [facility]2019-09-13 13:46:00 Test Item Value Reference Range Interpretation Comments A/G Ratio (test code = A/G Ratio) 0.8 1 0.7-1.6 [place] 455669-09-13 13:46:00 Test Item Value Reference Range Interpretation Comments ALT (test code = ALT) 40 See_Comment [Auto mated message] The system which ge nerated this result transmit burke reference range : <=65. The reference range was not used to interpr et this result as marleny l/abnormal. [facility]2019-09-13 13:46:00 Test Item Value Reference Range Interpretation Comments AST (test code = AST) 91 See_Comment [Auto mated message] The system which ge nerated this result transmit burke reference range : <=37. The reference range was not used to interpr et this result as marleny l/abnormal. [place] [id number] 13:46:00 Test Item Value Reference Range Interpretation Comments Alk Phos (test code = Alk Phos) 83 39-136 [facility]2019-09-13 13:46:00 Test Item Value Reference Range Interpretation Comments Bili Total (test code = Bili Total) 0.4 0.2-1.3 [place] 455669-09-13 13:46:00 Test Item Value Reference Range Interpretation Comments eGFR (test code = eGFR) 112 [place] 455669-09-13 13:46:00 Test Item Value Reference Range Interpretation Comments Magnesium Lvl (test code = Magnesium 1.4 1.8-2.4 Lvl) [place] 455669-09-13 13:46:00 Test Item Value Reference Range Interpretation Comments Phosphorus (test code = Phosphorus) 0.7 2.5-4.5 [facility]8476[facility] 13:46:00 Test Item Value Reference Range Interpretation Comments WBC (test code = WBC) 4.9 3.7-10.4 [facility]Veh[facility]waHCPLLCMYWO7137-70-44 13:46:00 Test Item Value Reference Range Interpretation Comments RBC (test code = RBC) 3.86 4.20-5.40 [facility]MoueujyXPVXNSFGPM4761-46-47 13:46:00 Test Item Value Reference Range Interpretation Comments Hgb (test code = Hgb) 10.7 12.0-16.0 [facility]ZemtbcvOQIRPHGJVC7426-60-76 13:46:00 Test Item Value Reference Range Interpretation Comments Hct (test code = Hct) 32.6 36.0-48.0 [id number] 13:46:00 Test Item Value Reference Range Interpretation Comments MCV (test code = MCV) 84.5 80.0-98.0 [facility]EdwkxwyAXSHCCZSCV1651-79-83 13:46:00 Test Item Value Reference Range Interpretation Comments MCH (test code = MCH) 27.8 pg 27.0-31.0 [facility] HospitalRtlbtgoLEBKKDPOOW1471-81-73 13:46:00 Test Item Value Reference Range Interpretation Comments MCHC (test code = MCHC) 32.9 32.0-36.0 [facility] HospitalZrobgleFDYEQJCJTG4293-39-93 13:46:00 Test Item Value Reference Range Interpretation Comments RDW (test code = RDW) 22.5 11.5-14.5 [facility]TmovrvcXLQSXHLWTD9077-84-28 13:46:00 Test Item Value Reference Range Interpretation Comments Platelet (test code = Platelet) 113 133-450 [facility]YzdlwgnJEXBFMOAZM8296-57-47 13:46:00 Test Item Value Reference Range Interpretation Comments MPV (test code = MPV) 10.4 7.4-10.4 [facility]QgcjjopIYZQMEAXBS1789-92-11 13:46:00 Test Item Value Reference Range Interpretation Comments Segs (test code = Segs) 55.6 45.0-75.0 [facility]WqbypsvNIOXNPSASZ6862-64-17 13:46:00 Test Item Value Reference Range Interpretation Comments Lymphocytes (test code = Lymphocytes) 34.1 20.0-40.0 [facility] HospitalAmszwwnYRBNEJFSHS9063-80-26 13:46:00 Test Item Value Reference Range Interpretation Comments Monocytes (test code = Monocytes) 7.2 2.0-12.0 [facility] HospitalBefkoglCADJLQGYXZ8591-81-60 13:46:00 Test Item Value Reference Range Interpretation Comments Eosinophils (test code = 2.3 See_Comment [A utomated message] The Eosinophils) system which ge nerated this result tra nsmitted reference range : <=4.0. The reference r felicity was not used to int erpret this result as normal/abnormal . [facility] HospitalDpczebrKKXXLWDNAC5103-99-10 13:46:00 Test Item Value Reference Range Interpretation Comments Basophils (test code = 0.8 See_Comment [Aut omated message] The Basophils) system which ge nerated this result tra nsmitted reference range : <=1.0. The reference r felicity was not used to int erpret this result as normal/abnormal . [facility] HospitalVtjzgolGBMFFXTJDZ3014-70-80 13:46:00 Test Item Value Reference Range Interpretation Comments Neutrophils # (test code = Neutrophils 2.7 1.5-8.1 #) [facility] HospitalCuzuhhvQWDGEZKDQZ5962-04-07 13:46:00 Test Item Value Reference Range Interpretation Comments Lymphocytes # (test code = Lymphocytes 1.7 1.0-5.5 #) [facility] HospitalAkkchwxQLWANGORZF6303-64-60 13:46:00 Test Item Value Reference Range Interpretation Comments Monocytes # (test code 0.4 See_Comment [Aut omated message] The = Monocytes #) system which generated this result tra nsmitted reference range : <=0.8. The reference r felicity was not used to int erpret this result as normal/abnormal . [facility] HospitalQmcysevILJNLFKHNM2646-63-93 13:46:00 Test Item Value Reference Range Interpretation Comments Eosinophils # (test code 0.1 See_Comment [A utomated message] The = Eosinophils #) system whic h generated this result tra nsmitted reference range : <=0.5. The reference r felicity was not used to int erpret this result as normal/abnormal . [facility]2019-09-13 13:46:00 Test Item Value Reference Range Interpretation Comments Glucose Lvl (test code = Glucose Lvl) 114 70-99 [facility]2019-09-13 13:46:00 Test Item Value Reference Range Interpretation Comments BUN (test code = BUN) 5 7-22 [facility]2019-09-13 13:46:00 Test Item Value Reference Range Interpretation Comments Creatinine Lvl (test code = Creatinine 0.58 0.50-1.40 Lvl) [facility]2019-09-13 13:46:00 Test Item Value Reference Range Interpretation Comments Sodium Lvl (test code = Sodium Lvl) 140 135-145 [facility]2019-09-13 13:46:00 Test Item Value Reference Range Interpretation Comments Potassium Lvl (test code = Potassium 2.7 3.5-5.1 Lvl) [facility]2019-09-13 13:46:00 Test Item Value Reference Range Interpretation Comments Chloride Lvl (test code = Chloride Lvl) 101 95-109 [facility]2019-09-13 13:46:00 Test Item Value Reference Range Interpretation Comments CO2 (test code = CO2) 25 24-32 [facility]2019-09-13 13:46:00 Test Item Value Reference Range Interpretation Comments AGAP (test code = AGAP) 16.7 10.0-20.0 [facility]2019-09-13 13:46:00 Test Item Value Reference Range Interpretation Comments Calcium Lvl (test code = Calcium Lvl) 9.4 8.5-10.5 [facility]2019-09-13 13:46:00 Test Item Value Reference Range Interpretation Comments B/C Ratio (test code = B/C Ratio) 9 1 6-25 [facility]2019-09-13 13:46:00 Test Item Value Reference Range Interpretation Comments Total Protein (test code = Total 7.0 6.4-8.4 Protein) [facility]2019-09-13 13:46:00 Test Item Value Reference Range Interpretation Comments Albumin Lvl (test code = Albumin Lvl) 3.0 3.5-5.0 [facility]2019-09-13 13:46:00 Test Item Value Reference Range Interpretation Comments Globulin (test code = Globulin) 4.0 2.7-4.2 [facility]2019-09-13 13:46:00 Test Item Value Reference Range Interpretation Comments A/G Ratio (test code = A/G Ratio) 0.8 1 0.7-1.6 [place] 455669-09-13 13:46:00 Test Item Value Reference Range Interpretation Comments ALT (test code = ALT) 40 See_Comment [Auto mated message] The system which ge nerated this result transmit burke reference range : <=65. The reference range was not used to interpr et this result as marleny l/abnormal. [facility]2019-09-13 13:46:00 Test Item Value Reference Range Interpretation Comments AST (test code = AST) 91 See_Comment [Auto mated message] The system which ge nerated this result transmit burke reference range : <=37. The reference range was not used to interpr et this result as marleny l/abnormal. [place] 455669-09-13 13:46:00 Test Item Value Reference Range Interpretation Comments Alk Phos (test code = Alk Phos) 83 39-136 [place] 455669-09-13 13:46:00 Test Item Value Reference Range Interpretation Comments Bili Total (test code = Bili Total) 0.4 0.2-1.3 [facility]2019-09-13 13:46:00 Test Item Value Reference Range Interpretation Comments eGFR (test code = eGFR) 112 [facility]2019-09-13 13:46:00 Test Item Value Reference Range Interpretation Comments Magnesium Lvl (test code = Magnesium 1.4 1.8-2.4 Lvl) [facility]2019-09-13 13:46:00 Test Item Value Reference Range Interpretation Comments Phosphorus (test code = Phosphorus) 0.7 2.5-4.5 [place] 947309-09-13 13:46:00 Test Item Value Reference Range Interpretation Comments WBC (test code = WBC) 4.9 3.7-10.4 [facility]OjvuzjjDLZRZZMAIE4650-27-02 13:46:00 Test Item Value Reference Range Interpretation Comments RBC (test code = RBC) 3.86 4.20-5.40 [place] 947309-09-13 13:46:00 Test Item Value Reference Range Interpretation Comments Hgb (test code = Hgb) 10.7 12.0-16.0 [place] 947309-09-13 13:46:00 Test Item Value Reference Range Interpretation Comments Hct (test code = Hct) 32.6 36.0-48.0 [facility]GhtzwjqVXPUUURPOS4762-58-30 13:46:00 Test Item Value Reference Range Interpretation Comments MCV (test code = MCV) 84.5 80.0-98.0 [facility]UiyjfmlAWNXMWGMKT7648-88-11 13:46:00 Test Item Value Reference Range Interpretation Comments MCH (test code = MCH) 27.8 pg 27.0-31.0 [facility]LdfqozxDMUJEHVEVS0040-39-33 13:46:00 Test Item Value Reference Range Interpretation Comments MCHC (test code = MCHC) 32.9 32.0-36.0 [facility]YwamubvFHTUAYTAXV7718-45-43 13:46:00 Test Item Value Reference Range Interpretation Comments RDW (test code = RDW) 22.5 11.5-14.5 [facility] [facility]xybx[facility]PBANKAYDRN1176-66-69 13:46:00 Test Item Value Reference Range Interpretation Comments Platelet (test code = Platelet) 113 133-450 [facility] HospitalFarunkdASZDUQRPEO1892-43-69 13:46:00 Test Item Value Reference Range Interpretation Comments MPV (test code = MPV) 10.4 7.4-10.4 [facility] HospitalZmkwvejBNAVKAMFVG3671-92-73 13:46:00 Test Item Value Reference Range Interpretation Comments Segs (test code = Segs) 55.6 45.0-75.0 [facility]XhvzozcODXZJETGOI0058-46-16 13:46:00 Test Item Value Reference Range Interpretation Comments Lymphocytes (test code = Lymphocytes) 34.1 20.0-40.0 [facility] HospitalIzhgvheACCDANULGG8938-89-06 13:46:00 Test Item Value Reference Range Interpretation Comments Monocytes (test code = Monocytes) 7.2 2.0-12.0 [facility] HospitalHdzzhgoQNRAZDKSMV6168-77-10 13:46:00 Test Item Value Reference Range Interpretation Comments Eosinophils (test code = 2.3 See_Comment [A utomated message] The Eosinophils) system which ge nerated this result tra nsmitted reference range : <=4.0. The reference r felicity was not used to int erpret this result as normal/abnormal . [facility] HospitalAvnzdnaODMXIHRIGS1307-84-44 13:46:00 Test Item Value Reference Range Interpretation Comments Basophils (test code = 0.8 See_Comment [Aut omated message] The Basophils) system which ge nerated this result tra nsmitted reference range : <=1.0. The reference r felicity was not used to int erpret this result as normal/abnormal . [facility] HospitalPgpofdmJZBCTXHNWJ4345-28-99 13:46:00 Test Item Value Reference Range Interpretation Comments Neutrophils # (test code = Neutrophils 2.7 1.5-8.1 #) [facility] HospitalIpzbwliLMMRENHZAF3645-70-33 13:46:00 Test Item Value Reference Range Interpretation Comments Lymphocytes # (test code = Lymphocytes 1.7 1.0-5.5 #) [facility] HospitalUomueeuEXXJTBIXEE2068-05-84 13:46:00 Test Item Value Reference Range Interpretation Comments Monocytes # (test code 0.4 See_Comment [Aut omated message] The = Monocytes #) system which generated this result tra nsmitted reference range : <=0.8. The reference r felicity was not used to int erpret this result as normal/abnormal . [facility] HospitalZosbuwxFOKDGRNNRP1599-12-13 13:46:00 Test Item Value Reference Range Interpretation Comments Eosinophils # (test code 0.1 See_Comment [A utomated message] The = Eosinophils #) system whic h generated this result tra nsmitted reference range : <=0.5. The reference r felicity was not used to int erpret this result as normal/abnormal . [facility]2019-09-13 13:46:00 Test Item Value Reference Range Interpretation Comments Glucose Lvl (test code = Glucose Lvl) 114 70-99 [facility]2019-09-13 13:46:00 Test Item Value Reference Range Interpretation Comments BUN (test code = BUN) 5 7-22 [place] 455669-09-13 13:46:00 Test Item Value Reference Range Interpretation Comments Creatinine Lvl (test code = Creatinine 0.58 0.50-1.40 Lvl) [facility]2019-09-13 13:46:00 Test Item Value Reference Range Interpretation Comments Sodium Lvl (test code = Sodium Lvl) 140 135-145 [facility]2019-09-13 13:46:00 Test Item Value Reference Range Interpretation Comments Potassium Lvl (test code = Potassium 2.7 3.5-5.1 Lvl) [facility]2019-09-13 13:46:00 Test Item Value Reference Range Interpretation Comments Chloride Lvl (test code = Chloride Lvl) 101 95-109 [facility]2019-09-13 13:46:00 Test Item Value Reference Range Interpretation Comments CO2 (test code = CO2) 25 24-32 [facility]2019-09-13 13:46:00 Test Item Value Reference Range Interpretation Comments AGAP (test code = AGAP) 16.7 10.0-20.0 [facility]2019-09-13 13:46:00 Test Item Value Reference Range Interpretation Comments Calcium Lvl (test code = Calcium Lvl) 9.4 8.5-10.5 [facility]2019-09-13 13:46:00 Test Item Value Reference Range Interpretation Comments B/C Ratio (test code = B/C Ratio) 9 1 6-25 [facility]2019-09-13 13:46:00 Test Item Value Reference Range Interpretation Comments Total Protein (test code = Total 7.0 6.4-8.4 Protein) [facility]2019-09-13 13:46:00 Test Item Value Reference Range Interpretation Comments Albumin Lvl (test code = Albumin Lvl) 3.0 3.5-5.0 [facility]2019-09-13 13:46:00 Test Item Value Reference Range Interpretation Comments Globulin (test code = Globulin) 4.0 2.7-4.2 [facility]2019-09-13 13:46:00 Test Item Value Reference Range Interpretation Comments A/G Ratio (test code = A/G Ratio) 0.8 1 0.7-1.6 [place] 455669-09-13 13:46:00 Test Item Value Reference Range Interpretation Comments ALT (test code = ALT) 40 See_Comment [Auto mated message] The system which ge nerated this result transmit burke reference range : <=65. The reference range was not used to interpr et this result as marleny l/abnormal. [facility]2019-09-13 13:46:00 Test Item Value Reference Range Interpretation Comments AST (test code = AST) 91 See_Comment [Auto mated message] The system which ge nerated this result transmit burke reference range : <=37. The reference range was not used to interpr et this result as marleny l/abnormal. [facility]2019-09-13 13:46:00 Test Item Value Reference Range Interpretation Comments Alk Phos (test code = Alk Phos) 83 39-136 [place] 455669-09-13 13:46:00 Test Item Value Reference Range Interpretation Comments Bili Total (test code = Bili Total) 0.4 0.2-1.3 [place] 455669-09-13 13:46:00 Test Item Value Reference Range Interpretation Comments eGFR (test code = eGFR) 112 [facility]2019-09-13 13:46:00 Test Item Value Reference Range Interpretation Comments Magnesium Lvl (test code = Magnesium 1.4 1.8-2.4 Lvl) [facility]2019-09-13 13:46:00 Test Item Value Reference Range Interpretation Comments Phosphorus (test code = Phosphorus) 0.7 2.5-4.5 [facility] HospitalPxaxoxkXRGIULTASE1817-06-11 13:46:00 Test Item Value Reference Range Interpretation Comments WBC (test code = WBC) 4.9 3.7-10.4 [facility] HospitalEowxjwrAIPCYATVER2847-71-42 13:46:00 Test Item Value Reference Range Interpretation Comments RBC (test code = RBC) 3.86 4.20-5.40 [facility] HospitalHxggfjnITMQUHJNTB7797-54-31 13:46:00 Test Item Value Reference Range Interpretation Comments Hgb (test code = Hgb) 10.7 12.0-16.0 [facility] HospitalBeontmaSQFMVQSLAX1984-19-78 13:46:00 Test Item Value Reference Range Interpretation Comments Hct (test code = Hct) 32.6 36.0-48.0 [place] 947309-09-13 13:46:00 Test Item Value Reference Range Interpretation Comments MCV (test code = MCV) 84.5 80.0-98.0 [place] 947309-09-13 13:46:00 Test Item Value Reference Range Interpretation Comments MCH (test code = MCH) 27.8 pg 27.0-31.0 [facility] HospitalZlwunyjIMPTCBNIBZ3638-58-77 13:46:00 Test Item Value Reference Range Interpretation Comments MCHC (test code = MCHC) 32.9 32.0-36.0 [facility] HospitalWzpxajwHKEGPYEXQX8823-29-75 13:46:00 Test Item Value Reference Range Interpretation Comments RDW (test code = RDW) 22.5 11.5-14.5 [facility] HospitalQcjtvlyMPRTCFTNCU3506-58-58 13:46:00 Test Item Value Reference Range Interpretation Comments Platelet (test code = Platelet) 113 133-450 [facility] HospitalJbcnzllOHLDWQUSEF6588-99-73 13:46:00 Test Item Value Reference Range Interpretation Comments MPV (test code = MPV) 10.4 7.4-10.4 [facility] HospitalBbvxwfsZGWPGCXRRL8843-63-54 13:46:00 Test Item Value Reference Range Interpretation Comments Segs (test code = Segs) 55.6 45.0-75.0 [facility] HospitalGetbtsqTDYBPMVNBE7488-00-67 13:46:00 Test Item Value Reference Range Interpretation Comments Lymphocytes (test code = Lymphocytes) 34.1 20.0-40.0 [facility] HospitalAfyiedpQLNQTSTVKR4903-63-27 13:46:00 Test Item Value Reference Range Interpretation Comments Monocytes (test code = Monocytes) 7.2 2.0-12.0 [facility] HospitalRbwdninJHOCNBOTUL3482-17-33 13:46:00 Test Item Value Reference Range Interpretation Comments Eosinophils (test code = 2.3 See_Comment [A utomated message] The Eosinophils) system which ge nerated this result tra nsmitted reference range : <=4.0. The reference r felicity was not used to int erpret this result as normal/abnormal . [facility] HospitalXvnmeshOGOSOWESZI7004-38-48 13:46:00 Test Item Value Reference Range Interpretation Comments Basophils (test code = 0.8 See_Comment [Aut omated message] The Basophils) system which ge nerated this result tra nsmitted reference range : <=1.0. The reference r felicity was not used to int erpret this result as normal/abnormal . [facility] HospitalIbnvpjbVPVBGBMVHC4416-31-22 13:46:00 Test Item Value Reference Range Interpretation Comments Neutrophils # (test code = Neutrophils 2.7 1.5-8.1 #) [facility] HospitalJzuvppeZTNVFBZQUP0016-36-94 13:46:00 Test Item Value Reference Range Interpretation Comments Lymphocytes # (test code = Lymphocytes 1.7 1.0-5.5 #) [facility] HospitalMqtcbhtYPXGBOSOMA7811-73-49 13:46:00 Test Item Value Reference Range Interpretation Comments Monocytes # (test code 0.4 See_Comment [Aut omated message] The = Monocytes #) system which generated this result tra nsmitted reference range : <=0.8. The reference r felicity was not used to int erpret this result as normal/abnormal . [facility] HospitalIacgsyaWXSZLSQJFF0117-54-19 13:46:00 Test Item Value Reference Range Interpretation Comments Eosinophils # (test code 0.1 See_Comment [A utomated message] The = Eosinophils #) system whic h generated this result tra nsmitted reference range : <=0.5. The reference r felicity was not used to int erpret this result as normal/abnormal . [facility]2019-09-13 13:46:00 Test Item Value Reference Range Interpretation Comments Glucose Lvl (test code = Glucose Lvl) 114 70-99 [facility]2019-09-13 13:46:00 Test Item Value Reference Range Interpretation Comments BUN (test code = BUN) 5 7-22 [facility]2019-09-13 13:46:00 Test Item Value Reference Range Interpretation Comments Creatinine Lvl (test code = Creatinine 0.58 0.50-1.40 Lvl) [facility]2019-09-13 13:46:00 Test Item Value Reference Range Interpretation Comments Sodium Lvl (test code = Sodium Lvl) 140 135-145 [facility]2019-09-13 13:46:00 Test Item Value Reference Range Interpretation Comments Potassium Lvl (test code = Potassium 2.7 3.5-5.1 Lvl) [facility]2019-09-13 13:46:00 Test Item Value Reference Range Interpretation Comments Chloride Lvl (test code = Chloride Lvl) 101 95-109 [place] 455669-09-13 13:46:00 Test Item Value Reference Range Interpretation Comments CO2 (test code = CO2) 25 24-32 [facility]2019-09-13 13:46:00 Test Item Value Reference Range Interpretation Comments AGAP (test code = AGAP) 16.7 10.0-20.0 [facility]2019-09-13 13:46:00 Test Item Value Reference Range Interpretation Comments Calcium Lvl (test code = Calcium Lvl) 9.4 8.5-10.5 [facility]2019-09-13 13:46:00 Test Item Value Reference Range Interpretation Comments B/C Ratio (test code = B/C Ratio) 9 1 6-25 [place] 455669-09-13 13:46:00 Test Item Value Reference Range Interpretation Comments Total Protein (test code = Total 7.0 6.4-8.4 Protein) [facility]2019-09-13 13:46:00 Test Item Value Reference Range Interpretation Comments Total Protein (test code = Total 7.0 6.4-8.4 Protein) [facility]2019-09-13 13:46:00 Test Item Value Reference Range Interpretation Comments Albumin Lvl (test code = Albumin Lvl) 3.0 3.5-5.0 [place] 455669-09-13 13:46:00 Test Item Value Reference Range Interpretation Comments Globulin (test code = Globulin) 4.0 2.7-4.2 [place] 455669-09-13 13:46:00 Test Item Value Reference Range Interpretation Comments A/G Ratio (test code = A/G Ratio) 0.8 1 0.7-1.6 [place] 455669-09-13 13:46:00 Test Item Value Reference Range Interpretation Comments ALT (test code = ALT) 40 See_Comment [Auto mated message] The system which ge nerated this result transmit burke reference range : <=65. The reference range was not used to interpr et this result as marleny l/abnormal. [facility]2019-09-13 13:46:00 Test Item Value Reference Range Interpretation Comments AST (test code = AST) 91 See_Comment [Auto mated message] The system which ge nerated this result transmit burke reference range : <=37. The reference range was not used to interpr et this result as marleny l/abnormal. [place] 455669-09-13 13:46:00 Test Item Value Reference Range Interpretation Comments Alk Phos (test code = Alk Phos) 83 39-136 [facility]2019-09-13 13:46:00 Test Item Value Reference Range Interpretation Comments Bili Total (test code = Bili Total) 0.4 0.2-1.3 [facility]2019-09-13 13:46:00 Test Item Value Reference Range Interpretation Comments eGFR (test code = eGFR) 112 [facility]2019-09-13 13:46:00 Test Item Value Reference Range Interpretation Comments Magnesium Lvl (test code = Magnesium 1.4 1.8-2.4 Lvl) [facility]2019-09-13 13:46:00 Test Item Value Reference Range Interpretation Comments Phosphorus (test code = Phosphorus) 0.7 2.5-4.5 [facility]LjogzfiDUCMSOLDIP0784-44-47 13:46:00 Test Item Value Reference Range Interpretation Comments WBC (test code = WBC) 4.9 3.7-10.4 [facility] HospitalRaqidlbVEKCWBMBPO8657-69-37 13:46:00 Test Item Value Reference Range Interpretation Comments RBC (test code = RBC) 3.86 4.20-5.40 [facility] HospitalHujkuglFMGJPMZZIU8764-19-16 13:46:00 Test Item Value Reference Range Interpretation Comments Hgb (test code = Hgb) 10.7 12.0-16.0 [facility] HospitalFlhqltgQDIJPZJTQT9005-26-48 13:46:00 Test Item Value Reference Range Interpretation Comments Hct (test code = Hct) 32.6 36.0-48.0 [facility] HospitalEhfttbpFDDIZWLDJY8678-22-93 13:46:00 Test Item Value Reference Range Interpretation Comments MCV (test code = MCV) 84.5 80.0-98.0 [facility] HospitalYiymngaDBWGNZAEVH0438-95-40 13:46:00 Test Item Value Reference Range Interpretation Comments MCH (test code = MCH) 27.8 pg 27.0-31.0 [facility] HospitalUcshvsdBXUDNMEYGB5846-40-03 13:46:00 Test Item Value Reference Range Interpretation Comments MCHC (test code = MCHC) 32.9 32.0-36.0 [facility] HospitalAfbwzivFFYPMFBVJJ1401-01-14 13:46:00 Test Item Value Reference Range Interpretation Comments RDW (test code = RDW) 22.5 11.5-14.5 [facility] HospitalOeistbzNSDMWUMWOZ0904-57-08 13:46:00 Test Item Value Reference Range Interpretation Comments Platelet (test code = Platelet) 113 133-450 [facility] HospitalJedyxtyCGHOHOXMRS6668-95-44 13:46:00 Test Item Value Reference Range Interpretation Comments MPV (test code = MPV) 10.4 7.4-10.4 [facility] HospitalOsroldvXPPPQCCTRH5754-55-01 13:46:00 Test Item Value Reference Range Interpretation Comments Segs (test code = Segs) 55.6 45.0-75.0 [facility] HospitalOiksfzyHGQBQWGOCE8314-56-50 13:46:00 Test Item Value Reference Range Interpretation Comments Lymphocytes (test code = Lymphocytes) 34.1 20.0-40.0 [facility]XrqjhgwDLHRDLFXER6157-32-33 13:46:00 Test Item Value Reference Range Interpretation Comments Monocytes (test code = Monocytes) 7.2 2.0-12.0 [facility] HospitalRtzdjkhVWWCCEVKJU3252-28-51 13:46:00 Test Item Value Reference Range Interpretation Comments Eosinophils (test code = 2.3 See_Comment [A utomated message] The Eosinophils) system which ge nerated this result tra nsmitted reference range : <=4.0. The reference r felicity was not used to int erpret this result as normal/abnormal . [facility] HospitalLlwqaftWBSAHYXFDU0448-77-75 13:46:00 Test Item Value Reference Range Interpretation Comments Basophils (test code = 0.8 See_Comment [Aut omated message] The Basophils) system which ge nerated this result tra nsmitted reference range : <=1.0. The reference r felicity was not used to int erpret this result as normal/abnormal . [facility] HospitalOnnjkcmJQDLWSUBQP9271-23-66 13:46:00 Test Item Value Reference Range Interpretation Comments Neutrophils # (test code = Neutrophils 2.7 1.5-8.1 #) [facility] HospitalCspmgsxXZLSFVVROQ3564-80-05 13:46:00 Test Item Value Reference Range Interpretation Comments Lymphocytes # (test code = Lymphocytes 1.7 1.0-5.5 #) [facility] HospitalFmenkzwHKWSQKJKGX0314-50-81 13:46:00 Test Item Value Reference Range Interpretation Comments Monocytes # (test code 0.4 See_Comment [Aut omated message] The = Monocytes #) system which generated this result tra nsmitted reference range : <=0.8. The reference r felicity was not used to int erpret this result as normal/abnormal . [facility] HospitalWywixejPQBSXFGNEY8582-10-66 13:46:00 Test Item Value Reference Range Interpretation Comments Eosinophils # (test code 0.1 See_Comment [A utomated message] The = Eosinophils #) system whic h generated this result tra nsmitted reference range : <=0.5. The reference r felicity was not used to int erpret this result as normal/abnormal . [facility] [id number] 13:46:00 Test Item Value Reference Range Interpretation Comments Glucose Lvl (test code = Glucose Lvl) 114 70-99 [facility] [id number] 13:46:00 Test Item Value Reference Range Interpretation Comments BUN (test code = BUN) 5 7-22 [facility]Construct[facility] NASHVLDQH7830-05-92 13:46:00 Test Item Value Reference Range Interpretation Comments Creatinine Lvl (test code = Creatinine 0.58 0.50-1.40 Lvl) [facility]2019-09-13 13:46:00 Test Item Value Reference Range Interpretation Comments Sodium Lvl (test code = Sodium Lvl) 140 135-145 [facility] CenterLike[facility] UZRZI0184-26-48 13:46:00 Test Item Value Reference Range Interpretation Comments Potassium Lvl (test code = Potassium 2.7 3.5-5.1 Lvl) [facility]ConstructUNC [facility] NASHSDJIH5857-85-69 13:46:00 Test Item Value Reference Range Interpretation Comments Chloride Lvl (test code = Chloride Lvl) 101 95-109 [facility] CenterLike[facility] IXAJK2904-14-16 13:46:00 Test Item Value Reference Range Interpretation Comments CO2 (test code = CO2) 25 24-32 [facility]CARDIAC [id number] 11:47:00 Test Item Value Reference Range Interpretation Comments Troponin-I (test code no gt See_Comment [Auto mated message] The = Troponin-I) system which g enerated this result transmit burke reference range : <=0.40. The reference r felicity was not used to interpr et this result as marleny l/abnormal. [facility] CenterLike[facility] [id number] 11:47:00 Test Item Value Reference Range Interpretation Comments Magnesium Lvl (test code = Magnesium 1.7 1.8-2.4 Lvl) [facility]2019-09-11 11:47:00 Test Item Value Reference Range Interpretation Comments Glucose Lvl (test code = Glucose Lvl) 83 70-99 [facility] [id number] 11:47:00 Test Item Value Reference Range Interpretation Comments BUN (test code = BUN) 3 7-22 [facility]2019-09-11 11:47:00 Test Item Value Reference Range Interpretation Comments Creatinine Lvl (test code = Creatinine 0.52 0.50-1.40 Lvl) [facility]2019-09-11 11:47:00 Test Item Value Reference Range Interpretation Comments Sodium Lvl (test code = Sodium Lvl) 135 135-145 [facility]2019-09-11 11:47:00 Test Item Value Reference Range Interpretation Comments Chloride Lvl (test code = Chloride Lvl) 99 95-109 [facility]2019-09-11 11:47:00 Test Item Value Reference Range Interpretation Comments CO2 (test code = CO2) 24 24-32 [facility]2019-09-11 11:47:00 Test Item Value Reference Range Interpretation Comments Calcium Lvl (test code = Calcium Lvl) 9.5 8.5-10.5 [facility]2019-09-11 11:47:00 Test Item Value Reference Range Interpretation Comments eGFR (test code = eGFR) 117 [facility]2019-09-11 11:47:00 Test Item Value Reference Range Interpretation Comments AGAP (test code = AGAP) 15.1 10.0-20.0 [facility]XbwkxxlAOUFPQGGTB5199-92-73 11:47:00 Test Item Value Reference Range Interpretation Comments Plt Morph (test code = Normal (04/04/19 6:47 Plt Morph) AM) [facility] HospitalDtshzrxEBUOFBPFLZ7221-02-48 11:47:00 Test Item Value Reference Range Interpretation Comments Segs (test code = Segs) 62.5 45.0-75.0 [facility] HospitalNhnuiplWWHNRSTDJU1771-48-80 11:47:00 Test Item Value Reference Range Interpretation Comments Lymphocytes (test code = Lymphocytes) 25.6 20.0-40.0 [facility] HospitalXeuxlzhZGCCLBRUWT7210-06-67 11:47:00 Test Item Value Reference Range Interpretation Comments Monocytes (test code = Monocytes) 10.3 2.0-12.0 [facility] HospitalBcacpjcFXRPOGIZHJ9525-90-28 11:47:00 Test Item Value Reference Range Interpretation Comments Eosinophils (test code = 1.2 See_Comment [A utomated message] The Eosinophils) system which ge nerated this result tra nsmitted reference range : <=4.0. The reference r felicity was not used to int erpret this result as normal/abnormal . [facility] HospitalZmpxjjmMMSDTSSVIV4779-27-49 11:47:00 Test Item Value Reference Range Interpretation Comments Basophils (test code = 0.4 See_Comment [Aut omated message] The Basophils) system which ge nerated this result tra nsmitted reference range : <=1.0. The reference r felicity was not used to int erpret this result as normal/abnormal . [facility] HospitalZelbporOLBMIEMWCB5156-84-35 11:47:00 Test Item Value Reference Range Interpretation Comments Neutrophils # (test code = Neutrophils 2.9 1.5-8.1 #) [facility] HospitalGvgzfpeOFKHRAPRWR1226-06-67 11:47:00 Test Item Value Reference Range Interpretation Comments Lymphocytes # (test code = Lymphocytes 1.2 1.0-5.5 #) [facility] HospitalQxyiuhdFSTWCQEORR3221-27-73 11:47:00 Test Item Value Reference Range Interpretation Comments Monocytes # (test code 0.5 See_Comment [Aut omated message] The = Monocytes #) system which generated this result tra nsmitted reference range : <=0.8. The reference r felicity was not used to int erpret this result as normal/abnormal . [facility] HospitalBublrksFJGTZEOXLY3422-13-04 11:47:00 Test Item Value Reference Range Interpretation Comments Eosinophils # (test code 0.1 See_Comment [A utomated message] The = Eosinophils #) system [facility] generated this result tra nsmitted reference range : <=0.5. The reference r felicity was not used to int erpret this result as normal/abnormal . [facility] HospitalJheaaosKAYBCLFOCI2620-65-64 11:47:00 Test Item Value Reference Range Interpretation Comments Anisocyte (test code = 1+ *ABN*(04/04/19 Anisocyte) 6:47 AM) [facility] HospitalBlvbsrvEMDZJSKRIK1051-29-02 11:47:00 Test Item Value Reference Range Interpretation Comments Macrocyte (test code = 1+ *ABN*(04/04/19 Macrocyte) 6:47 AM) [facility] HospitalMvawqwoJOREDBMIFK8531-58-38 11:47:00 Test Item Value Reference Range Interpretation Comments Microcyte (test code = 1+ *ABN*(04/04/19 Microcyte) 6:47 AM) [facility] HospitalTbbsqfgLFIQKTQAKY1458-91-17 11:47:00 Test Item Value Reference Range Interpretation Comments Spherocyte (test code = Rare *ABN*(04/04/19 Spherocyte) 6:47 AM) [facility] HospitalWdqednpVPIJABNFJY8054-42-48 11:47:00 Test Item Value Reference Range Interpretation Comments WBC (test code = WBC) 4.6 3.7-10.4 [facility] HospitalJxmjycbINVHTQQDST8986-67-71 11:47:00 Test Item Value Reference Range Interpretation Comments RBC (test code = RBC) 3.94 4.20-5.40 [facility] HospitalDqochgfAZFIVWSPRZ6902-07-31 11:47:00 Test Item Value Reference Range Interpretation Comments Hgb (test code = Hgb) 10.9 12.0-16.0 [facility] HospitalVlqbdxvCUFLMDHDQY3454-30-93 11:47:00 Test Item Value Reference Range Interpretation Comments Hct (test code = Hct) 33.5 36.0-48.0 [facility]NckvrayVWBATUSYIP5249-31-97 11:47:00 Test Item Value Reference Range Interpretation Comments MCV (test code = MCV) 85.0 80.0-98.0 [facility] HospitalDdtzockQLMBZFMYYM3643-92-24 11:47:00 Test Item Value Reference Range Interpretation Comments MCH (test code = MCH) 27.7 pg 27.0-31.0 [facility] HospitalIbqtshhNIRQVXJWWM0874-93-36 11:47:00 Test Item Value Reference Range Interpretation Comments MCHC (test code = MCHC) 32.6 32.0-36.0 [facility] HospitalFdkoceaPNYCBJUBQR3587-57-33 11:47:00 Test Item Value Reference Range Interpretation Comments RDW (test code = RDW) 22.8 11.5-14.5 [facility] HospitalRyojmirPNCAHQRRUG6591-25-72 11:47:00 Test Item Value Reference Range Interpretation Comments Platelet (test code = Platelet) 108 133-450 [facility] HospitalIwqypvrCSYBEKVMHX6913-24-08 11:47:00 Test Item Value Reference Range Interpretation Comments MPV (test code = MPV) 8.1 7.4-10.4 [facility] XCPSWRD1316-64-65 11:47:00 Test Item Value Reference Range Interpretation Comments Troponin-I (test code no gt See_Comment [Auto mated message] The = Troponin-I) system which g enerated this result transmit burke reference range : <=0.40. The reference r felicity was not used to interpr et this result as marleny l/abnormal. [facility]2019-09-11 11:47:00 Test Item Value Reference Range Interpretation Comments Magnesium Lvl (test code = Magnesium 1.7 1.8-2.4 Lvl) [facility]2019-09-11 11:47:00 Test Item Value Reference Range Interpretation Comments Glucose Lvl (test code = Glucose Lvl) 83 70-99 [facility]2019-09-11 11:47:00 Test Item Value Reference Range Interpretation Comments BUN (test code = BUN) 3 7-22 [facility]2019-09-11 11:47:00 Test Item Value Reference Range Interpretation Comments Creatinine Lvl (test code = Creatinine 0.52 0.50-1.40 Lvl) [facility]2019-09-11 11:47:00 Test Item Value Reference Range Interpretation Comments Sodium Lvl (test code = Sodium Lvl) 135 135-145 [facility]2019-09-11 11:47:00 Test Item Value Reference Range Interpretation Comments Chloride Lvl (test code = Chloride Lvl) 99 95-109 [facility]2019-09-11 11:47:00 Test Item Value Reference Range Interpretation Comments CO2 (test code = CO2) 24 24-32 [facility]2019-09-11 11:47:00 Test Item Value Reference Range Interpretation Comments Calcium Lvl (test code = Calcium Lvl) 9.5 8.5-10.5 [facility]2019-09-11 11:47:00 Test Item Value Reference Range Interpretation Comments eGFR (test code = eGFR) 117 [facility]2019-09-11 11:47:00 Test Item Value Reference Range Interpretation Comments AGAP (test code = AGAP) 15.1 10.0-20.0 [facility] HospitalVsjlrtkJSZIVQWMAK7326-94-15 11:47:00 Test Item Value Reference Range Interpretation Comments Plt Morph (test code = Normal (04/04/19 6:47 Plt Morph) AM) [facility] HospitalVmaybdeAIFGCQBUMH2496-16-25 11:47:00 Test Item Value Reference Range Interpretation Comments Segs (test code = Segs) 62.5 45.0-75.0 [facility] HospitalNnvgmrrMTNESVECLE0849-96-51 11:47:00 Test Item Value Reference Range Interpretation Comments Lymphocytes (test code = Lymphocytes) 25.6 20.0-40.0 [facility] HospitalDbrqkxxPENIFBZCBW1255-76-57 11:47:00 Test Item Value Reference Range Interpretation Comments Monocytes (test code = Monocytes) 10.3 2.0-12.0 [facility] HospitalPjraoowLJIACILIHE2160-85-38 11:47:00 Test Item Value Reference Range Interpretation Comments Eosinophils (test code = 1.2 See_Comment [A utomated message] The Eosinophils) system which ge nerated this result tra nsmitted reference range : <=4.0. The reference r felicity was not used to int erpret this result as normal/abnormal . [facility] HospitalApgholnVSTAMBDLCZ3562-58-25 11:47:00 Test Item Value Reference Range Interpretation Comments Basophils (test code = 0.4 See_Comment [Aut omated message] The Basophils) system which ge nerated this result tra nsmitted reference range : <=1.0. The reference r felicity was not used to int erpret this result as normal/abnormal . [facility] HospitalXwhsjfuVIIPQWIQTV4131-97-01 11:47:00 Test Item Value Reference Range Interpretation Comments Neutrophils # (test code = Neutrophils 2.9 1.5-8.1 #) [facility] HospitalYcnnbhdRECJGHISAU8671-34-91 11:47:00 Test Item Value Reference Range Interpretation Comments Lymphocytes # (test code = Lymphocytes 1.2 1.0-5.5 #) [facility] HospitalHbkjlbwWGQYWRLHES9036-16-47 11:47:00 Test Item Value Reference Range Interpretation Comments Monocytes # (test code 0.5 See_Comment [Aut omated message] The = Monocytes #) system which generated this result tra nsmitted reference range : <=0.8. The reference r felicity was not used to int erpret this result as normal/abnormal . [facility] HospitalUsbizynQXTCRPBYYM3081-99-75 11:47:00 Test Item Value Reference Range Interpretation Comments Eosinophils # (test code 0.1 See_Comment [A utomated message] The = Eosinophils #) system wh h generated this result tra nsmitted reference range : <=0.5. The reference r felicity was not used to int erpret this result as normal/abnormal . [facility] HospitalDgezsmsDVYYIQSNHT8430-38-58 11:47:00 Test Item Value Reference Range Interpretation Comments Anisocyte (test code = 1+ *ABN*(04/04/19 Anisocyte) 6:47 AM) [facility] HospitalSosrnyaRYMISHMFTQ0268-24-93 11:47:00 Test Item Value Reference Range Interpretation Comments Macrocyte (test code = 1+ *ABN*(04/04/19 Macrocyte) 6:47 AM) [facility] HospitalIwaxdjoRCXPTJUSMP1781-03-17 11:47:00 Test Item Value Reference Range Interpretation Comments Microcyte (test code = 1+ *ABN*(04/04/19 Microcyte) 6:47 AM) [facility] HospitalYqrmzarRDZFIQNZKP4874-40-50 11:47:00 Test Item Value Reference Range Interpretation Comments Spherocyte (test code = Rare *ABN*(04/04/19 Spherocyte) 6:47 AM) [facility] HospitalTugqwzkFVCFMLXHSS5461-63-28 11:47:00 Test Item Value Reference Range Interpretation Comments WBC (test code = WBC) 4.6 3.7-10.4 [facility] HospitalXouldebBSOBMRWYQE0744-20-79 11:47:00 Test Item Value Reference Range Interpretation Comments RBC (test code = RBC) 3.94 4.20-5.40 [facility] HospitalBqcndiwZMVOMMQWFY5646-12-37 11:47:00 Test Item Value Reference Range Interpretation Comments Hgb (test code = Hgb) 10.9 12.0-16.0 [facility] HospitalFvpdhdtHVFSQLMTKY3544-20-99 11:47:00 Test Item Value Reference Range Interpretation Comments Hct (test code = Hct) 33.5 36.0-48.0 [facility] HospitalTlvoutqQCLZHTZIXA2255-28-58 11:47:00 Test Item Value Reference Range Interpretation Comments MCV (test code = MCV) 85.0 80.0-98.0 [facility] HospitalFgvxtctLZXWDIZIVX0413-11-66 11:47:00 Test Item Value Reference Range Interpretation Comments MCH (test code = MCH) 27.7 pg 27.0-31.0 [facility] HospitalIlzqrzyEBAAYNZEIZ3430-00-44 11:47:00 Test Item Value Reference Range Interpretation Comments MCHC (test code = MCHC) 32.6 32.0-36.0 [facility] HospitalQeejdyxLKDTTNMXJH3469-64-25 11:47:00 Test Item Value Reference Range Interpretation Comments RDW (test code = RDW) 22.8 11.5-14.5 [facility] HospitalPhblgzhCKOPEFMXKK1840-89-85 11:47:00 Test Item Value Reference Range Interpretation Comments Platelet (test code = Platelet) 108 133-450 [facility] HospitalQduyjkaUPXJYERXUZ3608-17-03 11:47:00 Test Item Value Reference Range Interpretation Comments MPV (test code = MPV) 8.1 7.4-10.4 [facility] IQHDUKA8185-47-08 11:47:00 Test Item Value Reference Range Interpretation Comments Troponin-I (test code no gt See_Comment [Auto mated message] The = Troponin-I) system which g enerated this result transmit burke reference range : <=0.40. The reference r felicity was not used to interpr et this result as marleny l/abnormal. [facility]2019-09-11 11:47:00 Test Item Value Reference Range Interpretation Comments Magnesium Lvl (test code = Magnesium 1.7 1.8-2.4 Lvl) [facility]2019-09-11 11:47:00 Test Item Value Reference Range Interpretation Comments Glucose Lvl (test code = Glucose Lvl) 83 70-99 [facility]2019-09-11 11:47:00 Test Item Value Reference Range Interpretation Comments BUN (test code = BUN) 3 7-22 [facility]2019-09-11 11:47:00 Test Item Value Reference Range Interpretation Comments Creatinine Lvl (test code = Creatinine 0.52 0.50-1.40 Lvl) [facility]2019-09-11 11:47:00 Test Item Value Reference Range Interpretation Comments Sodium Lvl (test code = Sodium Lvl) 135 135-145 [facility]2019-09-11 11:47:00 Test Item Value Reference Range Interpretation Comments Chloride Lvl (test code = Chloride Lvl) 99 95-109 [facility]2019-09-11 11:47:00 Test Item Value Reference Range Interpretation Comments CO2 (test code = CO2) 24 24-32 [facility]2019-09-11 11:47:00 Test Item Value Reference Range Interpretation Comments Calcium Lvl (test code = Calcium Lvl) 9.5 8.5-10.5 [facility]2019-09-11 11:47:00 Test Item Value Reference Range Interpretation Comments eGFR (test code = eGFR) 117 [facility] YVKEG3334-26-40 11:47:00 Test Item Value Reference Range Interpretation Comments AGAP (test code = AGAP) 15.1 10.0-20.0 [facility] HospitalMknpwyoMPPPOQHXFB6027-83-04 11:47:00 Test Item Value Reference Range Interpretation Comments Plt Morph (test code = Normal (04/04/19 6:47 Plt Morph) AM) [facility] HospitalLfwvcyrJKGPZUFVPS8696-20-46 11:47:00 Test Item Value Reference Range Interpretation Comments Segs (test code = Segs) 62.5 45.0-75.0 [facility] HospitalJxkexoqRGZTMKDFON5298-21-24 11:47:00 Test Item Value Reference Range Interpretation Comments Lymphocytes (test code = Lymphocytes) 25.6 20.0-40.0 [facility] HospitalQdyascnPCSWERAOLQ0694-17-09 11:47:00 Test Item Value Reference Range Interpretation Comments Monocytes (test code = Monocytes) 10.3 2.0-12.0 [facility] HospitalTbrfsovJMNGVAOLBL6274-32-84 11:47:00 Test Item Value Reference Range Interpretation Comments Eosinophils (test code = 1.2 See_Comment [A utomated message] The Eosinophils) system which ge nerated this result tra nsmitted reference range : <=4.0. The reference r felicity was not used to int erpret this result as normal/abnormal . [facility] HospitalEleoitnDTCVDNXOWN3909-17-60 11:47:00 Test Item Value Reference Range Interpretation Comments Basophils (test code = 0.4 See_Comment [Aut omated message] The Basophils) system which ge nerated this result tra nsmitted reference range : <=1.0. The reference r felicity was not used to int erpret this result as normal/abnormal . [facility] HospitalLpbzroqXWIWEYUVRN6205-39-33 11:47:00 Test Item Value Reference Range Interpretation Comments Neutrophils # (test code = Neutrophils 2.9 1.5-8.1 #) [facility] HospitalApnuhkqPGLNTGYINN1892-40-55 11:47:00 Test Item Value Reference Range Interpretation Comments Lymphocytes # (test code = Lymphocytes 1.2 1.0-5.5 #) [facility] HospitalRwzjpjkBRLVNYMYWB8029-77-36 11:47:00 Test Item Value Reference Range Interpretation Comments Monocytes # (test code 0.5 See_Comment [Aut omated message] The = Monocytes #) system which generated this result tra nsmitted reference range : <=0.8. The reference r felicity was not used to int erpret this result as normal/abnormal . [facility] HospitalZyloljpXUVRVTVNPJ4399-11-65 11:47:00 Test Item Value Reference Range Interpretation Comments Eosinophils # (test code 0.1 See_Comment [A utomated message] The = Eosinophils #) system whic h generated this result tra nsmitted reference range : <=0.5. The reference r felicity was not used to int erpret this result as normal/abnormal . [facility] HospitalXmaedjjQCFORRMQAI3954-03-84 11:47:00 Test Item Value Reference Range Interpretation Comments Anisocyte (test code = 1+ *ABN*(04/04/19 Anisocyte) 6:47 AM) [facility] HospitalQqtdvdhVLMPSVJJVK2372-45-66 11:47:00 Test Item Value Reference Range Interpretation Comments Macrocyte (test code = 1+ *ABN*(04/04/19 Macrocyte) 6:47 AM) [facility] HospitalWncqqqhPCKSVKLNMI1886-73-84 11:47:00 Test Item Value Reference Range Interpretation Comments Microcyte (test code = 1+ *ABN*(04/04/19 Microcyte) 6:47 AM) [facility] HospitalFuaquuaSWRQNQOUWU5091-53-97 11:47:00 Test Item Value Reference Range Interpretation Comments Spherocyte (test code = Rare *ABN*(04/04/19 Spherocyte) 6:47 AM) [facility] HospitalWqfruubBNPLQMSFTZ1476-18-21 11:47:00 Test Item Value Reference Range Interpretation Comments WBC (test code = WBC) 4.6 3.7-10.4 [facility]QhebfucGHZMXYMACK3000-32-18 11:47:00 Test Item Value Reference Range Interpretation Comments RBC (test code = RBC) 3.94 4.20-5.40 [facility] HospitalDagemtfJSOZGICEKE2771-37-80 11:47:00 Test Item Value Reference Range Interpretation Comments Hgb (test code = Hgb) 10.9 12.0-16.0 [facility] HospitalKixzckaRMPZHICHZE8720-73-45 11:47:00 Test Item Value Reference Range Interpretation Comments Hct (test code = Hct) 33.5 36.0-48.0 [facility] HospitalJkmsykpVHDVSHPJCY5837-52-02 11:47:00 Test Item Value Reference Range Interpretation Comments MCV (test code = MCV) 85.0 80.0-98.0 [facility] HospitalWoaofbmPXCYVHHTXV6691-87-58 11:47:00 Test Item Value Reference Range Interpretation Comments MCH (test code = MCH) 27.7 pg 27.0-31.0 [facility] HospitalKerlearCCGGNXIHWF4972-49-30 11:47:00 Test Item Value Reference Range Interpretation Comments MCHC (test code = MCHC) 32.6 32.0-36.0 [facility] HospitalVyxxpiiRGUWWOGZTO6329-39-37 11:47:00 Test Item Value Reference Range Interpretation Comments RDW (test code = RDW) 22.8 11.5-14.5 [facility] HospitalYugfgeoYDSYVGQFCC6251-35-23 11:47:00 Test Item Value Reference Range Interpretation Comments Platelet (test code = Platelet) 108 133-450 [facility] HospitalMogkwisSVZBKUGILI0565-79-87 11:47:00 Test Item Value Reference Range Interpretation Comments MPV (test code = MPV) 8.1 7.4-10.4 [facility] QFYWIZX7201-04-60 11:47:00 Test Item Value Reference Range Interpretation Comments Troponin-I (test code no gt See_Comment [Auto mated message] The = Troponin-I) system which g enerated this result transmit burke reference range : <=0.40. The reference r felicity was not used to interpr et this result as marleny l/abnormal. [facility] HospitalBuck Mason SWGYF9726-33-05 11:47:00 Test Item Value Reference Range Interpretation Comments Magnesium Lvl (test code = Magnesium 1.7 1.8-2.4 Lvl) [facility]2019-09-11 11:47:00 Test Item Value Reference Range Interpretation Comments Glucose Lvl (test code = Glucose Lvl) 83 70-99 [facility]2019-09-11 11:47:00 Test Item Value Reference Range Interpretation Comments BUN (test code = BUN) 3 7-22 [facility]2019-09-11 11:47:00 Test Item Value Reference Range Interpretation Comments Creatinine Lvl (test code = Creatinine 0.52 0.50-1.40 Lvl) [facility]2019-09-11 11:47:00 Test Item Value Reference Range Interpretation Comments Sodium Lvl (test code = Sodium Lvl) 135 135-145 [facility]2019-09-11 11:47:00 Test Item Value Reference Range Interpretation Comments Chloride Lvl (test code = Chloride Lvl) 99 95-109 [facility]2019-09-11 11:47:00 Test Item Value Reference Range Interpretation Comments CO2 (test code = CO2) 24 24-32 [facility]2019-09-11 11:47:00 Test Item Value Reference Range Interpretation Comments Calcium Lvl (test code = Calcium Lvl) 9.5 8.5-10.5 [facility]2019-09-11 11:47:00 Test Item Value Reference Range Interpretation Comments eGFR (test code = eGFR) 117 [facility]2019-09-11 11:47:00 Test Item Value Reference Range Interpretation Comments AGAP (test code = AGAP) 15.1 10.0-20.0 [facility]OlgdkezOCSGKUMKEC7835-46-23 11:47:00 Test Item Value Reference Range Interpretation Comments Plt Morph (test code = Normal (04/04/19 6:47 Plt Morph) AM) [facility] HospitalPsngighLNVKWSHKDF2048-14-20 11:47:00 Test Item Value Reference Range Interpretation Comments Segs (test code = Segs) 62.5 45.0-75.0 [facility] HospitalMdqtuosWASQQNSYZK4099-14-76 11:47:00 Test Item Value Reference Range Interpretation Comments Lymphocytes (test code = Lymphocytes) 25.6 20.0-40.0 [facility] HospitalNzuweqtXWLVACMYMM0871-30-20 11:47:00 Test Item Value Reference Range Interpretation Comments Monocytes (test code = Monocytes) 10.3 2.0-12.0 [facility] HospitalAeifavrZAUYYBHPAL7355-07-67 11:47:00 Test Item Value Reference Range Interpretation Comments Eosinophils (test code = 1.2 See_Comment [A utomated message] The Eosinophils) system which ge nerated this result tra nsmitted reference range : <=4.0. The reference r felicity was not used to int erpret this result as normal/abnormal . [facility] HospitalYvbvyrkDLGVOIEOJG0126-79-69 11:47:00 Test Item Value Reference Range Interpretation Comments Basophils (test code = 0.4 See_Comment [Aut omated message] The Basophils) system which ge nerated this result tra nsmitted reference range : <=1.0. The reference r felicity was not used to int erpret this result as normal/abnormal . [facility] HospitalWvgmwomIZYDQQNEMO8858-68-41 11:47:00 Test Item Value Reference Range Interpretation Comments Neutrophils # (test code = Neutrophils 2.9 1.5-8.1 #) [facility] HospitalPxcyviwHEBILUBEJJ3483-80-27 11:47:00 Test Item Value Reference Range Interpretation Comments Lymphocytes # (test code = Lymphocytes 1.2 1.0-5.5 #) [facility] HospitalDhpvyusPNDBIIODLQ8012-70-99 11:47:00 Test Item Value Reference Range Interpretation Comments Monocytes # (test code 0.5 See_Comment [Aut omated message] The = Monocytes #) system which generated this result tra nsmitted reference range : <=0.8. The reference r felicity was not used to int erpret this result as normal/abnormal . [facility] HospitalBmceipeSWTJSIUIXJ4761-43-05 11:47:00 Test Item Value Reference Range Interpretation Comments Eosinophils # (test code 0.1 See_Comment [A utomated message] The = Eosinophils #) system whic h generated this result tra nsmitted reference range : <=0.5. The reference r felicity was not used to int erpret this result as normal/abnormal . [facility] HospitalRajoxlvNGNYHUIKWL5796-55-24 11:47:00 Test Item Value Reference Range Interpretation Comments Anisocyte (test code = 1+ *ABN*(04/04/19 Anisocyte) 6:47 AM) [facility] HospitalWanvxutKXJTHZZFYU6518-72-18 11:47:00 Test Item Value Reference Range Interpretation Comments Macrocyte (test code = 1+ *ABN*(04/04/19 Macrocyte) 6:47 AM) [facility] HospitalWfcgvlsGYFEANYKCC7490-03-31 11:47:00 Test Item Value Reference Range Interpretation Comments Microcyte (test code = 1+ *ABN*(04/04/19 Microcyte) 6:47 AM) [facility] HospitalTetoinsVQGGQVXPHL6835-52-70 11:47:00 Test Item Value Reference Range Interpretation Comments Spherocyte (test code = Rare *ABN*(04/04/19 Spherocyte) 6:47 AM) [facility] HospitalPhfhyvkOANDFQUEOB9601-03-54 11:47:00 Test Item Value Reference Range Interpretation Comments WBC (test code = WBC) 4.6 3.7-10.4 [facility] HospitalRiygavbPJCXLPWXCT5480-46-41 11:47:00 Test Item Value Reference Range Interpretation Comments RBC (test code = RBC) 3.94 4.20-5.40 [facility] HospitalDiptjfyDQKDEMAWAE4036-80-17 11:47:00 Test Item Value Reference Range Interpretation Comments Hgb (test code = Hgb) 10.9 12.0-16.0 [facility] HospitalDkypcxlQJEMSRSPGY2527-43-24 11:47:00 Test Item Value Reference Range Interpretation Comments Hct (test code = Hct) 33.5 36.0-48.0 [facility] HospitalAstskcgHNSQCBIFPX7220-90-73 11:47:00 Test Item Value Reference Range Interpretation Comments MCV (test code = MCV) 85.0 80.0-98.0 [facility] HospitalTpqbtsrZOMTWVURMP9907-36-58 11:47:00 Test Item Value Reference Range Interpretation Comments MCH (test code = MCH) 27.7 pg 27.0-31.0 [facility] HospitalZoarcanCJGSZRUUQN1613-10-26 11:47:00 Test Item Value Reference Range Interpretation Comments MCHC (test code = MCHC) 32.6 32.0-36.0 [facility] HospitalOizpkkqPSZAGBQDSP6472-85-29 11:47:00 Test Item Value Reference Range Interpretation Comments RDW (test code = RDW) 22.8 11.5-14.5 [facility] HospitalGgxnnaqLOTISUYWLN9617-01-49 11:47:00 Test Item Value Reference Range Interpretation Comments Platelet (test code = Platelet) 108 133-450 [facility] HospitalOtkcapxEWDYCGBDQM4184-35-80 11:47:00 Test Item Value Reference Range Interpretation Comments MPV (test code = MPV) 8.1 7.4-10.4 [facility] CKZJEQV8732-04-10 02:32:00 Test Item Value Reference Range Interpretation Comments Troponin-I (test code no gt See_Comment [Auto mated message] The = Troponin-I) system which g enerated this result transmit burke reference range : <=0.40. The reference r felicity was not used to interpr et this result as marleny l/abnormal. [facility] HospitalCHEM WEZPV6127-03-86 02:32:00 Test Item Value Reference Range Interpretation Comments B/C Ratio (test code = B/C Ratio) 4 1 6-25 [place] 455669-09-11 02:32:00 Test Item Value Reference Range Interpretation Comments Globulin (test code = Globulin) 4.2 2.7-4.2 [facility]2019-09-11 02:32:00 Test Item Value Reference Range Interpretation Comments A/G Ratio (test code = A/G Ratio) 0.9 1 0.7-1.6 [place] 455669-09-11 02:32:00 Test Item Value Reference Range Interpretation Comments Total Protein (test code = Total 7.9 6.4-8.4 Protein) [facility]2019-09-11 02:32:00 Test Item Value Reference Range Interpretation Comments Albumin Lvl (test code = Albumin Lvl) 3.7 3.5-5.0 [place] 455669-09-11 02:32:00 Test Item Value Reference Range Interpretation Comments ALT (test code = ALT) 38 See_Comment [Auto mated message] The system which ge nerated this result transmit burke reference range : <=65. The reference range was not used to interpr et this result as marleny l/abnormal. [facility]2019-09-11 02:32:00 Test Item Value Reference Range Interpretation Comments AST (test code = AST) 70 See_Comment [Auto mated message] The system which ge nerated this result transmit burke reference range : <=37. The reference range was not used to interpr et this result as marleny l/abnormal. [facility]2019-09-11 02:32:00 Test Item Value Reference Range Interpretation Comments Alk Phos (test code = Alk Phos) 104 39-136 [place] 455669-09-11 02:32:00 Test Item Value Reference Range Interpretation Comments Bili Total (test code = Bili Total) 2.0 0.2-1.3 [place] 455669-09-11 02:32:00 Test Item Value Reference Range Interpretation Comments Ketone Quantitative (test code = Ketone 3.41 Quantitative) [place] 455669-09-11 02:32:00 Test Item Value Reference Range Interpretation Comments Osmolality (test code = Osmolality) 278 280-300 [facility]2019-09-11 02:32:00 Test Item Value Reference Range Interpretation Comments Lactic Acid Lvl (test code = Lactic 1.0 0.5-2.2 Acid Lvl) [facility] HospitalUgzttenWGKHNINOOG5856-53-52 02:32:00 Test Item Value Reference Range Interpretation Comments WBC (test code = WBC) 7.6 3.7-10.4 [facility] HospitalNczijhxNXENILEPDM7316-65-53 02:32:00 Test Item Value Reference Range Interpretation Comments RBC (test code = RBC) 3.81 4.20-5.40 [facility] HospitalYvfvreqJDSTBBUWNL6520-01-79 02:32:00 Test Item Value Reference Range Interpretation Comments Hgb (test code = Hgb) 10.6 12.0-16.0 [facility] HospitalRyzvzmcGFJUNLBJRI6547-95-34 02:32:00 Test Item Value Reference Range Interpretation Comments Hct (test code = Hct) 32.5 36.0-48.0 [facility] [facility]daikuxZDTWLVKGHZ8138-01-39 02:32:00 Test Item Value Reference Range Interpretation Comments MCV (test code = MCV) 85.5 80.0-98.0 [facility]RazuiirYOKOVRIDRM1516-94-81 02:32:00 Test Item Value Reference Range Interpretation Comments MCH (test code = MCH) 27.8 pg 27.0-31.0 [facility] HospitalGgmplylLXCRWGYKLD6916-61-09 02:32:00 Test Item Value Reference Range Interpretation Comments MCHC (test code = MCHC) 32.6 32.0-36.0 [facility] HospitalGlzdbjxOFATBGQBWV7997-47-36 02:32:00 Test Item Value Reference Range Interpretation Comments RDW (test code = RDW) 22.2 11.5-14.5 [facility] HospitalRptdxkyJEVPCRDLJX4750-65-73 02:32:00 Test Item Value Reference Range Interpretation Comments Platelet (test code = Platelet) 104 133-450 [facility] HospitalJcouqogYMLTZUTQBJ1768-37-93 02:32:00 Test Item Value Reference Range Interpretation Comments MPV (test code = MPV) 8.3 7.4-10.4 [facility] HospitalQjuighlGJEKMLRRFU6963-90-71 02:32:00 Test Item Value Reference Range Interpretation Comments INR (test code = INR) 1.12 1 0.85-1.17 [facility] HospitalQbdgqetRVBZQNUWFT1397-40-29 02:32:00 Test Item Value Reference Range Interpretation Comments PT (test code = PT) 14.2 s 12.0-14.7 [facility] HospitalIkozpmlZLSZAYBXBS5644-97-95 02:32:00 Test Item Value Reference Range Interpretation Comments PTT (test code = PTT) 27.6 s 22.9-35.8 [facility] HospitalUsruqgyYXFZUWDFKB7472-58-30 02:32:00 Test Item Value Reference Range Interpretation Comments Plt Morph (test code = Normal (04/03/19 9:32 Plt Morph) PM) [facility] HospitalYlnnyxqPGNLDETJYS5007-21-85 02:32:00 Test Item Value Reference Range Interpretation Comments Segs (test code = Segs) 72.4 45.0-75.0 [facility] HospitalWgsecivOEJVJHKXXW5328-03-07 02:32:00 Test Item Value Reference Range Interpretation Comments Lymphocytes (test code = Lymphocytes) 17.6 20.0-40.0 [facility] HospitalZpdthiqGZQRIHILVJ7380-55-66 02:32:00 Test Item Value Reference Range Interpretation Comments Monocytes (test code = Monocytes) 9.7 2.0-12.0 [facility] HospitalBrfbncsLBQBCBFKVB9205-32-69 02:32:00 Test Item Value Reference Range Interpretation Comments Eosinophils (test code = 0.1 See_Comment [A utomated message] The Eosinophils) system which ge nerated this result tra nsmitted reference range : <=4.0. The reference r felicity was not used to int erpret this result as normal/abnormal . [facility] HospitalPymxtipDGIENVFKTQ0843-20-53 02:32:00 Test Item Value Reference Range Interpretation Comments Basophils (test code = 0.2 See_Comment [Aut omated message] The Basophils) system which ge nerated this result tra nsmitted reference range : <=1.0. The reference r felicity was not used to int erpret this result as normal/abnormal . [facility] HospitalBdukdakKWOCQDSRZP5807-80-26 02:32:00 Test Item Value Reference Range Interpretation Comments Neutrophils # (test code = Neutrophils 5.5 1.5-8.1 #) [facility] HospitalIccyxgsJUQGKJPOMY1416-22-44 02:32:00 Test Item Value Reference Range Interpretation Comments Lymphocytes # (test code = Lymphocytes 1.3 1.0-5.5 #) [facility] HospitalSkuceerXUEAGEGPXT2801-74-47 02:32:00 Test Item Value Reference Range Interpretation Comments Monocytes # (test code 0.7 See_Comment [Aut omated message] The = Monocytes #) system which generated this result tra nsmitted reference range : <=0.8. The reference r felicity was not used to int erpret this result as normal/abnormal . [facility]OsyeffxVSTMSONQJB2572-04-96 02:32:00 Test Item Value Reference Range Interpretation Comments Ethanol Lvl (test code = Ethanol Lvl) [facility] gt [facility] CenterKqoogrlEJOFUCYRNC5016-52-20 02:32:00 Test Item Value Reference Range Interpretation Comments Etoh (%) (test code = Etoh (%)) no gt [facility] HospitalCARDIAC [id number] 02:32:00 Test Item Value Reference Range Interpretation Comments Troponin-I (test code no gt See_Comment [Auto mated message] The = Troponin-I) system which g enerated this result transmit burke reference range : <=0.40. The reference r felicity was not used to interpr et this result as marleny l/abnormal. [facility] CenterLike[facility] [id number] 02:32:00 Test Item Value Reference Range Interpretation Comments B/C Ratio (test code = B/C Ratio) 4 1 6-25 [facility]Like[facility] [id number] 02:32:00 Test Item Value Reference Range Interpretation Comments Globulin (test code = Globulin) 4.2 2.7-4.2 [facility]Like[facility] [id number] 02:32:00 Test Item Value Reference Range Interpretation Comments A/G Ratio (test code = A/G Ratio) 0.9 1 0.7-1.6 [facility]Like[facility] [id number] 02:32:00 Test Item Value Reference Range Interpretation Comments Total Protein (test code = Total 7.9 6.4-8.4 Protein) [facility]Like[facility] [id number] 02:32:00 Test Item Value Reference Range Interpretation Comments Albumin Lvl (test code = Albumin Lvl) 3.7 3.5-5.0 [facility] [id number] 02:32:00 Test Item Value Reference Range Interpretation Comments ALT (test code = ALT) 38 See_Comment [Auto mated message] The system which ge nerated this result transmit burke reference range : <=65. The reference range was not used to interpr et this result as marleny l/abnormal. [facility]2019-09-11 02:32:00 Test Item Value Reference Range Interpretation Comments AST (test code = AST) 70 See_Comment [Auto mated message] The system which ge nerated this result transmit burek reference range : <=37. The reference range was not used to interpr et this result as marleny l/abnormal. [facility]2019-09-11 02:32:00 Test Item Value Reference Range Interpretation Comments Alk Phos (test code = Alk Phos) 104 39-136 [facility]2019-09-11 02:32:00 Test Item Value Reference Range Interpretation Comments Bili Total (test code = Bili Total) 2.0 0.2-1.3 [place] [id number] 02:32:00 Test Item Value Reference Range Interpretation Comments Ketone Quantitative (test code = Ketone 3.41 Quantitative) [facility]2019-09-11 02:32:00 Test Item Value Reference Range Interpretation Comments Osmolality (test code = Osmolality) 278 280-300 [facility]2019-09-11 02:32:00 Test Item Value Reference Range Interpretation Comments Lactic Acid Lvl (test code = Lactic 1.0 0.5-2.2 Acid Lvl) [facility] HospitalPrombhaPVLBQVJVBX1389-94-04 02:32:00 Test Item Value Reference Range Interpretation Comments WBC (test code = WBC) 7.6 3.7-10.4 [facility] HospitalKdxjfbqFKHCIWJOUS1450-08-38 02:32:00 Test Item Value Reference Range Interpretation Comments RBC (test code = RBC) 3.81 4.20-5.40 [place] [id number] 02:32:00 Test Item Value Reference Range Interpretation Comments Hgb (test code = Hgb) 10.6 12.0-16.0 [place] [id number] 02:32:00 Test Item Value Reference Range Interpretation Comments Hct (test code = Hct) 32.5 36.0-48.0 [place] [id number] 02:32:00 Test Item Value Reference Range Interpretation Comments MCV (test code = MCV) 85.5 80.0-98.0 [facility] HospitalSpmazvyMOJNOOJHAI8879-91-80 02:32:00 Test Item Value Reference Range Interpretation Comments MCH (test code = MCH) 27.8 pg 27.0-31.0 [facility] HospitalByuhyrlWCZCGKQWIH0383-88-19 02:32:00 Test Item Value Reference Range Interpretation Comments MCHC (test code = MCHC) 32.6 32.0-36.0 [facility] HospitalItdvhdlTJEYRWPFSC5548-26-11 02:32:00 Test Item Value Reference Range Interpretation Comments RDW (test code = RDW) 22.2 11.5-14.5 [facility] HospitalMgvsuklHTKSBZFODL5537-97-87 02:32:00 Test Item Value Reference Range Interpretation Comments Platelet (test code = Platelet) 104 133-450 [facility] HospitalSvqyenfGEKVGWPZRR4313-01-30 02:32:00 Test Item Value Reference Range Interpretation Comments MPV (test code = MPV) 8.3 7.4-10.4 [facility] HospitalRdmflmbUNRUTHFMAE7192-24-87 02:32:00 Test Item Value Reference Range Interpretation Comments INR (test code = INR) 1.12 1 0.85-1.17 [facility] HospitalBsvpjzqANRZKIWAKY2992-65-65 02:32:00 Test Item Value Reference Range Interpretation Comments PT (test code = PT) 14.2 s 12.0-14.7 [facility] HospitalDuhnjcoCRLWXHZVOE2471-04-67 02:32:00 Test Item Value Reference Range Interpretation Comments PTT (test code = PTT) 27.6 s 22.9-35.8 [facility] HospitalLwulfyuWKGCECRXEX1112-01-41 02:32:00 Test Item Value Reference Range Interpretation Comments Plt Morph (test code = Normal (04/03/19 9:32 Plt Morph) PM) [facility] HospitalPxlltvmFUGZNENFWF5061-45-15 02:32:00 Test Item Value Reference Range Interpretation Comments Segs (test code = Segs) 72.4 45.0-75.0 [facility] HospitalJnljgmrRHLPVRXUVI9110-97-83 02:32:00 Test Item Value Reference Range Interpretation Comments Lymphocytes (test code = Lymphocytes) 17.6 20.0-40.0 [facility] HospitalShtowsjKMQAKCOLGU6438-81-85 02:32:00 Test Item Value Reference Range Interpretation Comments Monocytes (test code = Monocytes) 9.7 2.0-12.0 [facility] HospitalWtfbalgLNCYGKIRSV0649-86-86 02:32:00 Test Item Value Reference Range Interpretation Comments Eosinophils (test code = 0.1 See_Comment [A utomated message] The Eosinophils) system which ge nerated this result tra nsmitted reference range : <=4.0. The reference r felicity was not used to int erpret this result as normal/abnormal . [facility] HospitalIvubsodRAVPAMPBZF8599-15-49 02:32:00 Test Item Value Reference Range Interpretation Comments Basophils (test code = 0.2 See_Comment [Aut omated message] The Basophils) system which ge nerated this result tra nsmitted reference range : <=1.0. The reference r felicity was not used to int erpret this result as normal/abnormal . [facility] HospitalJivwpfkIGAQAKUFMV0777-29-43 02:32:00 Test Item Value Reference Range Interpretation Comments Neutrophils # (test code = Neutrophils 5.5 1.5-8.1 #) [facility] HospitalTatmpxuHLHXROUTHA4652-67-05 02:32:00 Test Item Value Reference Range Interpretation Comments Lymphocytes # (test code = Lymphocytes 1.3 1.0-5.5 #) [facility] CenterEucwtscCUYIGPAIFA3320-56-56 02:32:00 Test Item Value Reference Range Interpretation Comments Monocytes # (test code 0.7 See_Comment [Aut omated message] The = Monocytes #) system which generated this result tra nsmitted reference range : <=0.8. The reference r felicity was not used to int erpret this result as normal/abnormal . [facility] HospitalLdlpdwoJOWKABMGWA8317-03-96 02:32:00 Test Item Value Reference Range Interpretation Comments Ethanol Lvl (test code = Ethanol Lvl) no gt [facility] CenterPsllgqyDVPBRIQKMH3553-02-32 02:32:00 Test Item Value Reference Range Interpretation Comments Etoh (%) (test code = Etoh (%)) no [facility] [id number] 02:32:00 Test Item Value Reference Range Interpretation Comments Troponin-I (test code no gt See_Comment [Auto mated message] The = Troponin-I) system which g enerated this result transmit burke reference range : <=0.40. The reference r felicity was not used to interpr et this result as marleny l/abnormal. [facility] HospitalCHEM [id number] 02:32:00 Test Item Value Reference Range Interpretation Comments B/C Ratio (test code = B/C Ratio) 4 1 6-25 [facility]2019-09-11 02:32:00 Test Item Value Reference Range Interpretation Comments Globulin (test code = Globulin) 4.2 2.7-4.2 [facility]2019-09-11 02:32:00 Test Item Value Reference Range Interpretation Comments A/G Ratio (test code = A/G Ratio) 0.9 1 0.7-1.6 [facility]2019-09-11 02:32:00 Test Item Value Reference Range Interpretation Comments Total Protein (test code = Total 7.9 6.4-8.4 Protein) [facility]2019-09-11 02:32:00 Test Item Value Reference Range Interpretation Comments Albumin Lvl (test code = Albumin Lvl) 3.7 3.5-5.0 [facility]2019-09-11 02:32:00 Test Item Value Reference Range Interpretation Comments ALT (test code = ALT) 38 See_Comment [Auto mated message] The system which ge nerated this result transmit burke reference range : <=65. The reference range was not used to interpr et this result as marleny l/abnormal. [facility]2019-09-11 02:32:00 Test Item Value Reference Range Interpretation Comments AST (test code = AST) 70 See_Comment [Auto mated message] The system which ge nerated this result transmit burke reference range : <=37. The reference range was not used to interpr et this result as marleny l/abnormal. [facility]2019-09-11 02:32:00 Test Item Value Reference Range Interpretation Comments Alk Phos (test code = Alk Phos) 104 39-136 [facility]2019-09-11 02:32:00 Test Item Value Reference Range Interpretation Comments Bili Total (test code = Bili Total) 2.0 0.2-1.3 [facility]2019-09-11 02:32:00 Test Item Value Reference Range Interpretation Comments Ketone Quantitative (test code = Ketone 3.41 Quantitative) [facility]2019-09-11 02:32:00 Test Item Value Reference Range Interpretation Comments Osmolality (test code = Osmolality) 278 280-300 [facility]2019-09-11 02:32:00 Test Item Value Reference Range Interpretation Comments Lactic Acid Lvl (test code = Lactic 1.0 0.5-2.2 Acid Lvl) [facility] HospitalWixbbobOODXOEGOUC4379-68-65 02:32:00 Test Item Value Reference Range Interpretation Comments WBC (test code = WBC) 7.6 3.7-10.4 [facility] HospitalRyvfqetOHMOTUNVSB7552-80-10 02:32:00 Test Item Value Reference Range Interpretation Comments RBC (test code = RBC) 3.81 4.20-5.40 [facility] HospitalRjhminiOGTIFTQUID9421-27-82 02:32:00 Test Item Value Reference Range Interpretation Comments Hgb (test code = Hgb) 10.6 12.0-16.0 [facility] HospitalTvroebtDUWTYCDMSB2529-05-25 02:32:00 Test Item Value Reference Range Interpretation Comments Hct (test code = Hct) 32.5 36.0-48.0 [facility] HospitalFtvkbvtZLQTLKDBSE6504-87-62 02:32:00 Test Item Value Reference Range Interpretation Comments MCV (test code = MCV) 85.5 80.0-98.0 [facility] HospitalWxeevobMHNCPOEGKU9017-00-91 02:32:00 Test Item Value Reference Range Interpretation Comments MCH (test code = MCH) 27.8 pg 27.0-31.0 [facility] HospitalBxbxratRJQGSTAOXQ7116-14-57 02:32:00 Test Item Value Reference Range Interpretation Comments MCHC (test code = MCHC) 32.6 32.0-36.0 [facility] HospitalWsqynznUBVWGNFEDK0673-57-55 02:32:00 Test Item Value Reference Range Interpretation Comments RDW (test code = RDW) 22.2 11.5-14.5 [facility] HospitalKrkkijnJTBCKBZRHY2523-33-02 02:32:00 Test Item Value Reference Range Interpretation Comments Platelet (test code = Platelet) 104 133-450 [facility] HospitalMwacgbtRRMWPFQGQV0449-06-92 02:32:00 Test Item Value Reference Range Interpretation Comments MPV (test code = MPV) 8.3 7.4-10.4 [facility] HospitalSzmenhkAKTVARSFBK3409-18-26 02:32:00 Test Item Value Reference Range Interpretation Comments INR (test code = INR) 1.12 1 0.85-1.17 [facility] HospitalPrutjkyIWJFKROZRX7302-42-85 02:32:00 Test Item Value Reference Range Interpretation Comments PT (test code = PT) 14.2 s 12.0-14.7 [facility] HospitalMlffzhyYNZTBBDJCF5818-00-27 02:32:00 Test Item Value Reference Range Interpretation Comments PTT (test code = PTT) 27.6 s 22.9-35.8 [facility] HospitalQwmnflgNUTDNOVWVY6284-31-77 02:32:00 Test Item Value Reference Range Interpretation Comments Plt Morph (test code = Normal (04/03/19 9:32 Plt Morph) PM) [facility] HospitalYkvicfhYIXMNPMKRM7603-68-31 02:32:00 Test Item Value Reference Range Interpretation Comments Segs (test code = Segs) 72.4 45.0-75.0 [facility] HospitalFeaurkoQNEJWQPARJ6182-56-51 02:32:00 Test Item Value Reference Range Interpretation Comments Lymphocytes (test code = Lymphocytes) 17.6 20.0-40.0 [facility] HospitalNgmluoxAKWTQGPENB8178-23-19 02:32:00 Test Item Value Reference Range Interpretation Comments Monocytes (test code = Monocytes) 9.7 2.0-12.0 [facility] HospitalPpghqarTPFBCALKYZ3723-03-37 02:32:00 Test Item Value Reference Range Interpretation Comments Eosinophils (test code = 0.1 See_Comment [A utomated message] The Eosinophils) system which ge nerated this result tra nsmitted reference range : <=4.0. The reference r felicity was not used to int erpret this result as normal/abnormal . [facility] HospitalVlfkfjnAQWXRHKYCI0042-43-12 02:32:00 Test Item Value Reference Range Interpretation Comments Basophils (test code = 0.2 See_Comment [Aut omated message] The Basophils) system which ge nerated this result tra nsmitted reference range : <=1.0. The reference r felicity was not used to int erpret this result as normal/abnormal . [facility] HospitalOaevumrZXKPLZWQXZ1722-06-02 02:32:00 Test Item Value Reference Range Interpretation Comments Neutrophils # (test code = Neutrophils 5.5 1.5-8.1 #) [facility] HospitalFhmfkjnCGKDUDQBUE2260-24-90 02:32:00 Test Item Value Reference Range Interpretation Comments Lymphocytes # (test code = Lymphocytes 1.3 1.0-5.5 #) [facility] HospitalItpioimVKIKYPRLDM7796-21-32 02:32:00 Test Item Value Reference Range Interpretation Comments Monocytes # (test code 0.7 See_Comment [Aut omated message] The = Monocytes #) system which generated this result tra nsmitted reference range : <=0.8. The reference r felicity was not used to int erpret this result as normal/abnormal . [facility] HospitalQdupcynDMAUFWMGZM9821-61-16 02:32:00 Test Item Value Reference Range Interpretation Comments Ethanol Lvl (test code = Ethanol Lvl) [facility] gt [facility] CenterZoktizpWDZYOQYREA8133-57-58 02:32:00 Test Item Value Reference Range Interpretation Comments Etoh (%) (test code = Etoh (%)) no gt [facility] CenterConstructCARDIAC EMEETFC2706-08-66 02:32:00 Test Item Value Reference Range Interpretation Comments Troponin-I (test code no gt See_Comment [Auto mated message] The = Troponin-I) system which g enerated this result transmit burke reference range : <=0.40. The reference r felicity was not used to interpr et this result as marleny l/abnormal. [facility] [employer] [id number] 02:32:00 Test Item Value Reference Range Interpretation Comments B/C Ratio (test code = B/C Ratio) 4 1 6-25 [facility] [employer] [id number] 02:32:00 Test Item Value Reference Range Interpretation Comments Globulin (test code = Globulin) 4.2 2.7-4.2 [facility] [employer] [id number] 02:32:00 Test Item Value Reference Range Interpretation Comments A/G Ratio (test code = A/G Ratio) 0.9 1 0.7-1.6 [facility] [employer] [id number] 02:32:00 Test Item Value Reference Range Interpretation Comments Total Protein (test code = Total 7.9 6.4-8.4 Protein) [facility] [employer] [id number] 02:32:00 Test Item Value Reference Range Interpretation Comments Albumin Lvl (test code = Albumin Lvl) 3.7 3.5-5.0 [facility] [employer] [id number] 02:32:00 Test Item Value Reference Range Interpretation Comments ALT (test code = ALT) 38 See_Comment [Auto mated message] The system which ge nerated this result transmit burke reference range : <=65. The reference range was not used to interpr et this result as marleny l/abnormal. [facility]2019-09-11 02:32:00 Test Item Value Reference Range Interpretation Comments AST (test code = AST) 70 See_Comment [Auto mated message] The system which ge nerated this result transmit burke reference range : <=37. The reference range was not used to interpr et this result as marleny l/abnormal. [facility]2019-09-11 02:32:00 Test Item Value Reference Range Interpretation Comments Alk Phos (test code = Alk Phos) 104 39-136 [facility]2019-09-11 02:32:00 Test Item Value Reference Range Interpretation Comments Bili Total (test code = Bili Total) 2.0 0.2-1.3 [facility]2019-09-11 02:32:00 Test Item Value Reference Range Interpretation Comments Ketone Quantitative (test code = Ketone 3.41 Quantitative) [facility]2019-09-11 02:32:00 Test Item Value Reference Range Interpretation Comments Osmolality (test code = Osmolality) 278 280-300 [facility]2019-09-11 02:32:00 Test Item Value Reference Range Interpretation Comments Lactic Acid Lvl (test code = Lactic 1.0 0.5-2.2 Acid Lvl) [facility]EomafxtKXOVWMOMPM9171-19-84 02:32:00 Test Item Value Reference Range Interpretation Comments WBC (test code = WBC) 7.6 3.7-10.4 [facility] HospitalTyulccaBNOTXARHKI3048-95-79 02:32:00 Test Item Value Reference Range Interpretation Comments RBC (test code = RBC) 3.81 4.20-5.40 [place] 947309-09-11 02:32:00 Test Item Value Reference Range Interpretation Comments Hgb (test code = Hgb) 10.6 12.0-16.0 [facility] HospitalNytzawoVNCBKRAPQE6590-39-72 02:32:00 Test Item Value Reference Range Interpretation Comments Hct (test code = Hct) 32.5 36.0-48.0 [facility] HospitalYvgwqyoGVMAZKZJLT9603-12-49 02:32:00 Test Item Value Reference Range Interpretation Comments MCV (test code = MCV) 85.5 80.0-98.0 [place] 947309-09-11 02:32:00 Test Item Value Reference Range Interpretation Comments MCH (test code = MCH) 27.8 pg 27.0-31.0 [facility] HospitalGjmxjbfLZIONTJUKV2199-16-12 02:32:00 Test Item Value Reference Range Interpretation Comments MCHC (test code = MCHC) 32.6 32.0-36.0 [facility] HospitalRubxsvlSCZMKLZCQS2453-69-83 02:32:00 Test Item Value Reference Range Interpretation Comments RDW (test code = RDW) 22.2 11.5-14.5 [facility] HospitalAuirrllYWOTIHYEVO4692-02-17 02:32:00 Test Item Value Reference Range Interpretation Comments Platelet (test code = Platelet) 104 133-450 [facility] HospitalNuzpmdlFMWCSGBDWL7920-27-14 02:32:00 Test Item Value Reference Range Interpretation Comments MPV (test code = MPV) 8.3 7.4-10.4 [facility] HospitalXforuubRJRFMBIIKJ2349-93-34 02:32:00 Test Item Value Reference Range Interpretation Comments INR (test code = INR) 1.12 1 0.85-1.17 [facility]XqbuqjyIPGGZSTFLT1696-93-06 02:32:00 Test Item Value Reference Range Interpretation Comments PT (test code = PT) 14.2 s 12.0-14.7 [facility] HospitalJjuvghdAVQOERORBI4948-13-35 02:32:00 Test Item Value Reference Range Interpretation Comments PTT (test code = PTT) 27.6 s 22.9-35.8 [facility] HospitalGtjvlwsMWGMKNKNMO4342-70-51 02:32:00 Test Item Value Reference Range Interpretation Comments Plt Morph (test code = Normal (04/03/19 9:32 Plt Morph) PM) [facility] HospitalQklahwoTSFEYYYFDU4797-29-23 02:32:00 Test Item Value Reference Range Interpretation Comments Segs (test code = Segs) 72.4 45.0-75.0 [facility] HospitalWfuqhniYNIKFUDTGB5120-38-28 02:32:00 Test Item Value Reference Range Interpretation Comments Lymphocytes (test code = Lymphocytes) 17.6 20.0-40.0 [facility] HospitalKcpskniAGGCTODMJF3153-81-38 02:32:00 Test Item Value Reference Range Interpretation Comments Monocytes (test code = Monocytes) 9.7 2.0-12.0 [facility] HospitalCmdwebpVBDJUVUFAQ0708-31-59 02:32:00 Test Item Value Reference Range Interpretation Comments Eosinophils (test code = 0.1 See_Comment [A utomated message] The Eosinophils) system which ge nerated this result tra nsmitted reference range : <=4.0. The reference r felicity was not used to int erpret this result as normal/abnormal . [facility] HospitalWufvctvBURFOBMDST9996-01-20 02:32:00 Test Item Value Reference Range Interpretation Comments Basophils (test code = 0.2 See_Comment [Aut omated message] The Basophils) system which ge nerated this result tra nsmitted reference range : <=1.0. The reference r felicity was not used to int erpret this result as normal/abnormal . [facility] HospitalDeeesllVFWNKUCMZX1206-86-68 02:32:00 Test Item Value Reference Range Interpretation Comments Neutrophils # (test code = Neutrophils 5.5 1.5-8.1 #) [id number] 02:32:00 Test Item Value Reference Range Interpretation Comments Lymphocytes # (test code = Lymphocytes 1.3 1.0-5.5 #) [id number] 02:32:00 Test Item Value Reference Range Interpretation Comments Monocytes # (test code 0.7 See_Comment [Aut omated message] The = Monocytes #) system which generated this result tra nsmitted reference range : <=0.8. The reference r felicity was not used to int erpret this result as normal/abnormal . [place] [id number] 02:32:00 Test Item Value Reference Range Interpretation Comments Ethanol Lvl (test code = Ethanol Lvl) no gt [place] [id number] 02:32:00 Test Item Value Reference Range Interpretation Comments Etoh (%) (test code = Etoh (%)) no [facility] [id number] 12:36:00 Test Item Value Reference Range Interpretation [...] 9.1 mg/dL 8.5-10.1 N CA) BASIC METABOLIC [id number] 12:30:00 Test Item Value Reference Range Interpretation [...] code = HCGTRIAGE) SPECIMEN COMMENTS: URINECOMMENTS TO BUFFER NICKEL: URINE TESTUrine Test Result: NEGATIVEAre internal controls (presence of a control line & clear background) OK? YLot # of HCG Test Kit: [id number] Date of Kit: 06/23/2020Test Performed by: Marlene Perfomed on: 01/24/19CHEMISTRY 8 [id number] 13:46:00 Test Item Value Reference Range Interpretation [...] >60 H code = GFRBED) CHEMISTRY 8 [id number] 13:46:00 Test Item Value Reference Range Interpretation [...] H (test code = GFRBED) POC LACTIC [id number] 13:40:00 Test Item Value Reference Range Interpretation Comments POC LACTIC ACID (test code = 0.94 MMOL/L 0.4-2.2 N POCLAC) URINALYSIS [id number] 02:02:00 Test Item Value Reference Range Interpretation [...] #/LPF FEW Urine Source? Clean CatchBASIC METABOLIC [id number] 01:55:00 Test Item Value Reference Range Interpretation [...] 7.7 mg/dL 8.5-10.1 L CA) HEPATIC FUNCTION [id number] 01:55:00 Test Item Value Reference Range Interpretation [...] range due ALKP) to change in reagent. [id number] 01:55:00 Test Item Value Reference Range Interpretation Comments LIPASE (test code = LIP) 123 U/L 73.0-393.0 N HCG SERUM [id number] 01:55:00 Test Item Value Reference Range Interpretation Comments HCG SERUM QUAL (test NEGATIVE NEGATIVE This HC GQL test is NOT code = HCGQL) applicable for MALE patients.Check with nurse about probable order error.If Tumor Marker Test needed, nu rse should order test "HCG TU"(Test #550.31124)---- - BASIC METABOLIC [id number] 01:48:00 Test Item Value Reference Range Interpretation [...] code = CA) mg/dL 8.5-10.1 HEPATIC FUNCTION [id number] 01:48:00 Test Item Value Reference Range Interpretation [...] TOTAL (test IUnit/L 45-117 code = ALKP) [id number] 01:48:00 Test Item Value Reference Range Interpretation Comments LIPASE (test code = LIP) U/L 73.0-393.0 HCG SERUM [id number] 01:48:00 Test Item Value Reference Range Interpretation Comments HCG SERUM QUAL (test NEGATIVE NEGATIVE This HC GQL test is NOT code = HCGQL) applicable for MALE patients.Check with nurse about probable order error.If Tumor Marker Test needed, nu rse should order test "HCG TU"(Test #550.37073)---- - [id number] 01:48:00 Test Item Value Reference Range Interpretation Comments MAGNESIUM (test code = MAG) 1.7 mg/dL 1.8-2.4 L BASIC METABOLIC [id number] 01:41:00 Test Item Value Reference Range Interpretation [...] code = CA) mg/dL 8.5-10.1 HEPATIC FUNCTION [id number] 01:41:00 Test Item Value Reference Range Interpretation [...] TOTAL (test IUnit/L 45-117 code = ALKP) [id number] 01:41:00 Test Item Value Reference Range Interpretation Comments LIPASE (test code = LIP) U/L 73.0-393.0 HCG SERUM [id number] 01:41:00 Test Item Value Reference Range Interpretation Comments HCG SERUM QUAL (test NEGATIVE NEGATIVE This HC GQL test is NOT code = HCGQL) applicable for MALE patients.Check with nurse about probable order error.If Tumor Marker Test needed, nu rse should order test "HCG ZAYNAB"(Test #550.89451)---- - CBC W/O [id number] 01:37:00 Test Item Value Reference Range Interpretation [...]
--- NOTE | 2022-07-21 14:12 | RAD REPORT ---
EXAM DESCRIPTION: RAD - Abdomen Single View - 07/21/2022 1:56 pm CLINICAL HISTORY: ABD PAIN COMPARISON: Abdomen Pelvis W Contrast dated 10/26/2020 FINDINGS: Bowel gas pattern is non-specific. No obstruction, free air or pneumatosis. Moderately la rge stool volume is present filling but not dilating the colon. Small bowel is not dilated. No suspic ious calcifications. Cholecystectomy clips are seen in the right upper quadrant. No acute bone finding. IMPRESSION: KUB examination shows no acute finding. Moderate stool volume is present filling but not dilating the colon.
[2022-07-21] MEDS ORDERED: LACTULOSE 20 GM/30 ML UCUP ONE (15:30)
[2022-07-21 16:56] LABS: Urine Blood Negative (Negative); Urine Glucose Negative (Negative); Urine Protein Negative (Negative); Urine pH 6.5 (5.0-7.0)
[2022-07-21 17:10] LABS: Absolute Lymphocytes (CBC) 2.6 K/uL (0.7-4.9); Hematocrit 45.1 % (36.0-45.0); Lymphocytes % 32.7 % (15.3-44.8); MCV 87.7 fL (80-100); MPV 8.9 fL (7.6-11.3); RBC Red Blood Cell Count 5.14 M/uL (3.86-4.86)
[2022-07-21 18:38] LABS: Albumin 4.2 g/dL (3.4-5.0); Bilirubin Total 0.5 mg/dL (0.2-1.0); Potassium 3.7 mmol/L (3.5-5.1); Protein, Total 8.4 g/dL (6.4-8.2)
--- NOTE | 2022-07-21 18:49 | ER ---
Nurse's Notes [facility] Name: Diana Watson Age: 47 yrs Sex: Female : 1975 Arrival Date: 07/21/2022 Time: 12:39 Bed 9 Private MD: Gabriel Neil V Diagnosis: Constipation, unspecified Presentation: 07/21 13:02 Chief complaint: Patient states: LUQ pain that began 6 months ago, worse when having a ss BM. Pt states, "I have seen a doctor, but he just felt it. It's getting worse ever since I ran into a OLED-T and it fell on my spleen 6 months ago.". Coronavirus screen: Client denies travel out of the [place] in the last 14 days. Ebola Screen: Patient denies exposure to infectious person. Patient denies travel to an Ebola-affected area in the 21 days before illness onset. Initial Sepsis Screen: Does the patient meet any 2 criteria? No. Patient's initial sepsis screen is negative. Does the patient have a suspected source of infection? No. Patient's initial sepsis screen is negative. Risk Assessment: Do you want to hurt yourself or someone else? Patient reports no desire to harm self or others. Onset of symptoms was December 2021. 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 - Social history:: Smoking status: Patient reports the use of cigarette tobacco products, smokes one-half pack cigarettes per day, Reported history of juuling and/or vaping. Screenin:00 [facility] ED Fall Risk Assessment (Adult) History of falling in the last 3 months, ph including since admission No falls in past 3 months (0 pts) Confusion or Disorientation No (0 pts) Intoxicated or Sedated No (0 pts) Impaired Gait No (0 pts) Mobility Assist Device Used No (0 pt) Altered Elimination No (0 pt) Score/Fall Risk Level 0 - 2 = Low Risk Oriented to surroundings, Maintained a safe environment. Abuse screen: Denies threats or abuse. Denies injuries from another. Nutritional screening: No deficits noted. Tuberculosis screening: No symptoms or risk factors identified. Assessment: 16:30 General: Appears in no apparent distress. comfortable, Behavior is calm, cooperative, ph appropriate for age. Pain: Complains of pain in left upper quadrant. Neuro: Level of Consciousness is awake, alert, obeys commands, Oriented to person, place, time, situation. Cardiovascular: Capillary refill < 3 seconds in bilateral fingers Patient's skin is warm and dry. Respiratory: Airway is patent Respiratory effort is even, unlabored. GI: Abdomen is non-distended, Reports upper abdominal pain, constipation, nausea, vomiting. Derm: Skin is healthy with good turgor, Skin is pink, warm \\T\\ dry. Vital Signs: 13:02 BP 115 / 85; Pulse 83; Resp 16; Temp 98.5(O); Pulse Ox 99% on R/A; Weight 68.04 kg; ss Height 5 ft. 7 in. (170.18 cm); Pain 5/10; 13:02 Body Mass Index 23.49 (68.04 kg, 170.18 cm) ED Course: 12:39 Patient arrived in ED. am2 12:39 Gabriel Neil MD is Private Physician. am2 13:07 Triage completed. ss 13:07 Arm band placed on right wrist. ss 13:11 Estela Reynolds FNP-C is PHCP. snw 13:11 Rivera Goldberg MD is Attending Physician. snw 13:37 XRAY Abdomen 1 View In Process Unspecified. EDMS 13[facility] md2 15:19 Su Ferrell, RN is Primary Nurse. ph 17:00 Patient has correct armband on for positive identification. Pulse ox on. NIBP on. ph 18:48 Gabriel Neil MD is Referral Physician. snw 19:06 No provider procedures requiring assistance completed. IV discontinued, intact, ph bleeding controlled, No redness/swelling at site. Pressure dressing applied. Administered Medications: 17:14 Drug: Lactulose 20 grams Volume: 30 ml; Route: PO; ph 18:00 Follow up: Response: No adverse reaction ph Medication: 17:00 VIS not applicable for this client. ph Outcome: 18:48 Discharge ordered by MD. jenkins 19:06 Patient left the ED. ph 19:06 Discharged to home ambulatory. ph 19:06 Condition: good 19:06 Discharge instructions given to family, Instructed on discharge instructions, follow up and referral plans. medication usage, Demonstrated understanding of instructions, follow-up care, medications, Prescriptions given X 1. Signatures: Dispatcher [employer] EDMS Estela Reynolds, DIRECTOR SECURITY MANAGEMENT-C DIRECTOR SECURITY MANAGEMENT-Csnw Kyleigh Ashford RN RN Su Ferrell RN RN Gale [place] Mikaela md2
--- NOTE | 2022-07-21 18:49 | EDPHYS ---
Physician Documentation [facility] Name: Diana Watson Age: 47 yrs Sex: Female : 1975 Arrival Date: 07/21/2022 Time: 12:39 Bed 9 Private MD: Gabriel Neil V ED Physician Rivera Goldberg HPI: 07/21 15:43 This 47 yrs old Female presents to ER via Ambulatory with complaints of Abdominal Pain, snw Nausea. 15:43 The patient presents with abdominal pain in the upper abdomen, in the lower abdomen. snw Onset: The symptoms/episode began/occurred suddenly, and became persistent. The symptoms do not radiate. Associated signs and symptoms: Pertinent positives: low grade fever. The symptoms are described as achy, shooting, steady. Severity of pain: At its worst the pain was severe in the emergency department the pain has improved moderately. The patient has experienced similar episodes in the past. It is unknown whether or not the patient has recently seen a physician. 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 - Social history:: Smoking status: Patient reports the use of cigarette tobacco products, smokes one-half pack cigarettes per day, Reported history of juuling and/or vaping. ROS: 15:42 Eyes: Negative for injury, pain, redness, and discharge, ENT: Negative for injury, snw pain, and discharge, Neck: Negative for injury, pain, and swelling, Cardiovascular: Negative for chest pain, palpitations, and edema, Respiratory: Negative for shortness of breath, cough, wheezing, and pleuritic chest pain. 15:42 Back: Negative for injury and pain, : Negative for injury, bleeding, discharge, and swelling, MS/Extremity: Negative for injury and deformity, Skin: Negative for injury, rash, and discoloration, Neuro: Negative for headache, weakness, numbness, tingling, and seizure, Psych: Negative for depression, anxiety, suicide ideation, homicidal ideation, and hallucinations. 15:42 Constitutional: Positive for body aches, malaise. 15:42 Abdomen/GI: Positive for abdominal pain, of the left upper quadrant. Exam: 15:42 Constitutional: This is a well developed, well nourished patient who is awake, alert, snw and in no acute distress. Head/Face: Normocephalic, atraumatic. Eyes: Pupils equal round and reactive to light, extra-ocular motions intact. Lids and lashes normal. Conjunctiva and sclera are non-icteric and not injected. Cornea within normal limits. Periorbital areas with no swelling, redness, or edema. ENT: Nares patent. No nasal discharge, no septal abnormalities noted. Tympanic membranes are normal and external auditory canals are clear. Oropharynx with no redness, swelling, or masses, exudates, or evidence of obstruction, uvula midline. Mucous membranes moist. Neck: Trachea midline, no thyromegaly or masses palpated, and no cervical lymphadenopathy. Supple, full range of motion without nuchal rigidity, or vertebral point tenderness. No Meningismus. Chest/axilla: Normal chest wall appearance and motion. Nontender with no deformity. No lesions are appreciated. Cardiovascular: Regular rate and rhythm with a normal S1 and S2. No gallops, murmurs, or rubs. Normal PMI, no JVD. No pulse deficits. Respiratory: Lungs have equal breath sounds bilaterally, clear to auscultation and percussion. No rales, rhonchi or wheezes noted. No increased work of breathing, no retractions or nasal flaring. Abdomen/GI: Soft, non-tender, with normal bowel sounds. No distension or tympany. No guarding or rebound. No evidence of tenderness throughout. Back: No spinal tenderness. No costovertebral tenderness. Full range of motion. Skin: Warm, dry with normal turgor. Normal color with no rashes, no lesions, and no evidence of cellulitis. MS/ Extremity: Pulses equal, no cyanosis. Neurovascular intact. Full, normal range of motion. Neuro: Awake and alert, GCS 15, oriented to person, place, time, and situation. Cranial nerves II-XII grossly intact. Motor strength 5/5 in all extremities. Sensory grossly intact. Cerebellar exam normal. Normal gait. Psych: Awake, alert, with orientation to person, place and time. Behavior, mood, and affect are within normal limits. Vital Signs: 13:02 BP 115 / 85; Pulse 83; Resp 16; Temp 98.5(O); Pulse Ox 99% on R/A; Weight 68.04 kg; ss Height 5 ft. 7 in. (170.18 cm); Pain 5/10; 13:02 Body Mass Index 23.49 (68.04 kg, 170.18 cm) ss MDM: 15:39 Patient medically screened. snw 18:49 Data reviewed: vital signs, nurses notes. Data interpreted: Pulse oximetry: on room air snw is 99 %. Interpretation: normal. Counseling: I had a detailed discussion with the patient and/or guardian regarding: the historical points, exam findings, and any diagnostic results supporting the discharge/admit diagnosis, lab results, radiology results, the need for outpatient follow up, to return to the emergency department if symptoms worsen or persist or if there are any questions or concerns that arise at home. Special discussion: Based on the patient's Hx, exam, and Dx evaluation, there is no indication for emergent surgery or inpatient Tx. It is understood by the patient/guardian that if the Sx's persist or worsen they need to return immediately for re-evaluation. Based on the history and exam findings, there is no indication for further emergent testing or inpatient evaluation. I discussed with the patient/guardian the need to see the primary care provider for further evaluation of the symptoms. 07/21 13:10 Order name: CBC with Diff; Complete Time: 17:21 snw 07/21 13:10 Order name: CMP; Complete Time: 18:39 snw 07/21 13:10 Order name: Lipase; Complete Time: 18:39 snw 07/21 13:10 Order name: ETOH Level; Complete Time: 17:31 snw 07/21 13:10 Order name: XRAY Abdomen 1 View; Complete Time: 14:14 snw 07/21 13:10 Order name: IV Saline Lock; Complete Time: 16:52 snw 07/21 13:10 Order name: Labs collected and sent; Complete Time: 16:52 snw 07/21 15:42 Order name: PO challenge; Complete Time: 17:14 snw 07/21 15:42 Order name: Urine Dipstick-Ancillary (obtain specimen); Complete Time: 16:52 snw 07/21 16:57 Order name: Urine Dipstick-Ancillary; Complete Time: 17:04 EDMS Administered Medications: 17:14 Drug: Lactulose 20 grams Volume: 30 ml; Route: PO; ph 18:00 Follow up: Response: No adverse reaction ph Disposition: 18:00 Co-signature as Attending Physician, Rivera Goldberg MD I agree with the assessment and rt plan of care. Disposition Summary: 07/21/22 18:48 Discharge Ordered Location: Home snw Condition: Stable snw Diagnosis - Constipation, unspecified snw Followup: snw - With: Emergency Department - When: As needed - Reason: Worsening of condition Followup: snw - With: Gabriel Neil MD - When: 1 week - Reason: Recheck today's complaints, Continuance of care, Re-evaluation by your physician Discharge Instructions: - Discharge Summary Sheet snw - Constipation, Adult snw - [place] Diet snw Forms: - Medication Reconciliation Form snw - Thank You Letter snw - Antibiotic Education snw - Prescription Opioid Use snw Prescriptions: - Lactulose 10 gram/15 mL Oral Solution - take 30 milliliters by ORAL route once daily; 300 milliliter; Refills: 0, snw Product Selection Permitted Signatures: Dispatcher [employer] EDMS Estela Reynolds, GAS SUBSTATION OPERATOR-C GAS SUBSTATION OPERATOR-Csnw Kyleigh Ashford, CARLY RN Su Chi RN RN Rivera Trinidad MD MD rt
[2022-07-21 19:17] VITALS: BP 115/85; TEMP 98.5; O2SAT 99
== END 2022-07-21 19:06 | disposition home or self-care (01) ==
LOC: ER 12:32
DX: K59.00 Constipation, unspecified (principal); F17.210 Nicotine dependence, cigarettes, uncomplicated; F10.20 Alcohol dependence, uncomplicated
CPT/HCPCS: 36415; 74018; 80053; 80320; 81003; 83690; 85025